=== PATIENT | male | born 1950 | race Two or more races ===

== ENCOUNTER 2024-07-10 14:04 | Inpatient (IN) | payer OTHER, MEDICARE, SELFPAY ==
[2024-07-10] VITALS (8 sets, daily range): BP systolic 86–109; BP diastolic 43–65; PULSE 85–100; RESP 15–25; TEMP 36.8–36.9; O2SAT 91–95; BMI 28.1
--- NOTE | 2024-07-10 14:47 | EKG_ITS ---
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: : [id number] Requested By: Sheba Davis ([facility]) Neelam Order Number: [id number] Reading MD: Sheba Davis ([facility]) Neelam Measurements Intervals [place] Rate: 102 P: 17 [place]: 144 QRS: -68 QRSD: 133 T: 39 QT: 393 QTc: 514 Interpretive Statements SINUS TACHYCARDIA RIGHT BUNDLE BRANCH BLOCK [120+ ms QRS DURATION, UPRIGHT V1, 40+ ms S IN I/aVL/V4/V5/V6] LEFT ANTERIOR FASCICULAR BLOCK [QRS AXIS <= -45, QR IN I, RS IN II] Compared to ECG 05/14/2024 15:38:37 Sinus rhythm no longer present Myocardial infarct finding no longer present /store/S0/[id number]/ecg/[id number].pdf
--- NOTE | 2024-07-10 14:48 | PD.EDRME ---
Rapid Medical Screening Exam RME Arrival date/time: 07/10/24 14:04 This is a 74-year-old male who presents to the emergency department with complaints of black stools last night history of liver cirrhosis. I have greeted and performed a focused initial assessment of this patient. Initial appropriate labs ordered at this time. A comprehensive ED assessment and evaluation of the patient and analysis of all test and completion of medical decision making process will be conducted by additional ED provider. Chief Complaint: GI Bleed Time Seen by Provider: 07/10/24 14:47 Vital signs: Vital Signs Temperature 98.4 F 07/10/24 14:41 Pulse Rate 100 07/10/24 14:41 Respiratory Rate 18 07/10/24 14:41 Blood Pressure 109/64 07/10/24 14:41 Pulse Oximetry (%) 94 L 07/10/24 14:41 Oxygen Delivery Method Room Air 07/10/24 14:41
[2024-07-10 15:37] LABS: Basophils % (Auto) 0 % (0-2.5); Eosinophils % (Auto) 0 % (0-10); Hematocrit 30.2 % (41.0-53.0); Hemoglobin 10.2 g/dL (13.5-16.0); Immature Granulocytes % (Auto) 1 % (0-0); Immature Granulocytes Auto 0.06 Thou/mm3 (0.00-0.00); Lymphocytes # (Auto) 1.3 Thou/mm3 (1.0-4.8); Lymphocytes % (Auto) 11 % (10-50); Mean Corpuscular HGB Conc 33.8 g/dl (31.0-37.0); Mean Corpuscular Volume 86 fL (80-100); Monocytes # (Auto) 1.3 Thou/mm3 (0.0-0.8); Monocytes % (Auto) 11 % (0-12); Neutrophils # (Auto) 9.3 Thou/mm3 (1.8-7.7); Neutrophils % (Auto) 78 % (37-80); Nucleated Red Blood Cell % 0 /100 WBC (0); RDW Standard Deviation 66.4 fL (35.1-43.9); Red Blood Count 3.52 Miln/mm3 (4.50-5.90)
[2024-07-10 15:40] LABS: Platelet Count 62 Thou/mm3 (140-440)
[2024-07-10 16:08] LABS: Alanine Aminotransferase 17 U/L (10-49); Albumin, Serum 2.7 gm/dL (3.4-4.8); Albumin/Globulin Ratio 0.6 (1.2-2.2); Alkaline Phosphatase 300 U/L (46-116); Anion Gap 9 (7-16); Aspartate Amino Transferase 33 U/L (0-34); BUN/Creatinine Ratio 17 Ratio (12-20); Bilirubin,Total 5.2 mg/dL (0.3-1.2); Blood Urea Nitrogen 15 mg/dL (9-23); Calcium 8.3 mg/dL (8.3-10.6); Calcium (Corrected) 9.3 mg/dL (8.5-10.1); Carbon Dioxide 22.4 mMol/L (20.0-31.0); Chloride 102 mMol/L (98-107); Creatinine (Component) 0.9 mg/dL (0.6-1.3); Estimated Creatinine Clearance 73.7 mL/min (>60); Globulin 4.6 gm/dL (2.3-3.5); Glucose 98 mg/dL (74-106); Lipase 34 U/L (12-53); Magnesium 1.7 mg/dL (1.6-2.6); Osmolality,Calculated 267 (275-295); Potassium 3.5 mMol/L (3.4-5.1); Sodium 133 mMol/L (136-145); Total Protein 7.3 gm/dL (5.7-8.2); eGFR > 60 See Note
[2024-07-10 16:10] LABS: Troponin I 0.089 ng/mL (0.0-0.045)
--- NOTE | 2024-07-10 16:26 | PD.EDGIBLD ---
ED GI Bleed RME/HPI General Chief complaint: GI Bleed Stated complaint: blood in stool, abdominal pain Time Seen by Provider: 07/10/24 14:47 Arrival date/time: 07/10/24 14:04 RME / HPI RME / HPI Narrative: 74-year-old male patient with significant history of liver cirrhosis, came in for evaluation regarding black stool. Patient had black stool for the last 3 days,. Patient also complained of abdominal pain few days ago but not today. Denies any vomiting. Denies any other complaints. No medication was taken prior to arrival. Patient is not taking any blood thinner. Related Data Home Medications ?Medication ?Instructions ?Recorded ?Confirmed alprazolam 0.5 mg tablet 0.5 mg PO BID PRN Anxiety 06/25/23 11/22/23 hydrocodone 10 mg-acetaminophen 1 tab PO Q6H PRN Pain 06/25/23 11/22/23 325 mg tablet tamsulosin 0.4 mg capsule 0.4 mg PO DAILY 06/25/23 03/19/24 Previous Rx's ?Medication ?Instructions ?Recorded escitalopram oxalate 10 mg tablet 10 mg PO QDAY 14 days #14 tabs 11/23/23 spironolactone 25 mg tablet 25 mg PO QDAY 14 days #14 tabs 11/23/23 furosemide 20 mg tablet (Lasix) 20 mg PO BID #60 tabs 12/24/23 ferrous sulfate 324 mg (65 mg 324 mg PO BID #60 tabs 02/01/24 iron) tablet,delayed release Allergies Allergy/AdvReac Type Severity Reaction Status Date / Time No Known Allergies Allergy Unknown Verified 07/10/24 14:08 Review of Systems Review of Systems Narrative Review of Systems: Review of system reviewed and within normal limits except mentioned in HPI ED Exam Narrative Physical exam: VITAL SIGNS: Reviewed. GENERAL APPEARANCE: Alert and interactive, follows commands, no acute distress, HEAD AND FACE: Non-traumatic. ENT: PERRL, pale conjunctiva eyelid no trauma, Mucous membrane moist. NECK: Supple, nontender, no nuchal rigidity. CHEST: No tenderness, no crepitus, no paradoxical movement, no retractions. LUNGS: Clear, well ventilated, symmetric, no rales, no wheezing, no ronchi, no stridor, good breath sounds bilaterally. HEART: Regular rate, regular rhythm, no murmur, no gallops. ABDOMEN: Soft, positive bowel sounds, nondistended, no guarding, nontender, no rebound, no masses, RECTAL: Deferred. GENITAL: Deferred. NEUROLOGICAL: Gross motor function intact sensory function intact, Appropriate for age. MUSCULOSKELETAL: low back nontender, full range of motion. EXTREMITIES: Nontender, full range of motion. SKIN: Color pale, dry, no rash, no lacerations, no abrasions, no contusions. LYMPHATICS: Deferred. Course Quality Measures none Orders Category Date Time Status COVID-19 Screening Questionnaire NOW Care 07/10/24 20:02 Active Decision to Admit X1 Care 07/10/24 20:01 Active EKG (ED ONLY) *Do not use* NOW Care 07/10/24 14:47 Completed Endoscopy Consents .On arrival Care 07/10/24 19:58 Active Insert IV NOW Care 07/10/24 14:47 Active Miscellaneous Nursing Order NOW Care 07/10/24 19:58 Active NPO STAT Care 07/10/24 14:47 Active Occult Blood,Stool (Nursing) NOW Care 07/10/24 14:47 Active Consult to Gastroenterology Stat Cons 07/10/24 19:18 Ordered Diet Clear Liquid Diet 07/10/24 Dinner Active EKG (ED Only) Stat Exams 07/10/24 14:47 Draft Ammonia Stat Lab 07/10/24 16:54 Completed CBC Stat Lab 07/10/24 15:10 Completed Comprehensive Metabolic Panel Stat Lab 07/10/24 15:10 Completed Lipase Stat Lab 07/10/24 15:10 Completed Magnesium Stat Lab 07/10/24 15:10 Completed Prothrombin Time with INR Stat Lab 07/10/24 15:10 Completed Troponin I Stat Lab 07/10/24 15:10 Completed Troponin I Stat Lab 07/10/24 16:54 Completed Urinalysis Stat Lab 07/10/24 19:32 Received Octreotide Acet Inj [SandoSTATIN Inj] Med 07/10/24 16:37 Discontinued 50 mcg IV X1 ONE Sodium Chloride 0.9% 1000 ml [Ns] 1,000 ml Med 07/10/24 16:37 Discontinued IV 999 mls/hr Sodium Chloride 0.9% 1000 ml [Ns] 1,000 ml Med 07/10/24 20:02 Active IV 999 mls/hr Sodium Chloride 0.9% [Ns] 100 ml Med 07/10/24 16:45 Active Octreotide Acet Inj [SandoSTATIN Inj] 1,000 mcg IV 50 mcg/hr Sodium Chloride 0.9% [Ns] 100 ml Med 07/11/24 12:44 Pending Octreotide Acet Inj [SandoSTATIN Inj] 1,000 mcg IV 50 mcg/hr Vital Signs Vital signs: Vital Signs Temperature 98.4 F 07/10/24 14:41 Pulse Rate 100 07/10/24 14:41 Respiratory Rate 18 07/10/24 14:41 Blood Pressure 109/64 07/10/24 14:41 Pulse Oximetry (%) 94 L 07/10/24 14:41 Oxygen Delivery Method Room Air 07/10/24 14:41 GI Bleed MDM Narrative MDM Narrative:: 74-year-old male patient with significant history of liver cirrhosis, came in for evaluation regarding black stool. Patient had black stool for the last 3 days,. Patient also complained of abdominal pain few days ago but not today. Denies any vomiting. Denies any other complaints. No medication was taken prior to arrival. Patient is not taking any blood thinner. I did a rectal exam, he tested positive for occult blood. However there is no black tarry stool on the examining finger. I consulted Dr. Hall, GI specialist on-call, told me to keep the patient n.p.o. postmidnight for endoscopy tomorrow Patient received IV fluids x 2 L for blood pressure below 90 systolic. . Patient received IV Protonix, IV Sandostatin and on drip Patient data External records reviewed:: None Clinical information provided by:: none Social determinants that could affect healthcare access:: none Patient has the following chronic illnesses:: Liver cirrhosis How is presenting disease/condition affected by chronic disease/condition?: exacerbated by Evaluation data The following diagnostics were reviewed and interpreted by me:: lab results and EKG tracing(s) Lab and/or radiology exams considered but not ordered:: None Interpretation Summary: Hemoglobin was noted to be 10.2 leukocytosis of 12 platelet of 66. Troponin was noted to be 0.086 initially I repeated went down to 0.080 EKG showed sinus tachycardia, ventricular rate of 102 bpm, no ST segment elevation depression noted. Medications / Prescriptions Medications or Prescriptions considered but not ordered:: None Medication administrations:: Medication Administration History Octreotide Acetate 1,000 mcg/ (Sodium Chloride) 102 mls @ 5.1 mls/hr IV .Q20H JERSON; Protocol Stop: 07/14/24 20:43 Octreotide Acetate 1,000 mcg/ (Sodium Chloride) 102 mls @ 5.1 mls/hr IV .Q20H ONE; Protocol Stop: 07/11/24 12:44 Last Admin: 07/10/24 18:27 Dose: 50 mcg/hr, 5.1 mls/hr Documented By: AVM Sodium Chloride (Ns) 1,000 mls @ 999 mls/hr IV .Q1H1M ONE Stop: 07/10/24 21:02 Discontinued Medications Sodium Chloride (Ns) 1,000 mls @ 999 mls/hr IV .Q1H1M ONE Stop: 07/10/24 17:37 Last Infusion: 07/10/24 18:40 Dose: Infused Documented By: Admin: 07/10/24 17:36 Dose: 999 mls/hr Documented By: AVM Octreotide Acetate (Octreotide Acet Inj 50 Mcg/Ml Vial) 50 mcg IV X1 ONE Stop: 07/10/24 16:38 Last Admin: 07/10/24 17:36 Dose: 50 mcg Documented By: AVM Sandostatin IV and drip, IV fluids, Protonix, Consultations Consultation(s) initiated? (list below): Yes Consultation #1 (Physician, Specialty, Details): Dr. Hall, GI specialist call, thank you Dr. Hall Diagnosis GI bleed differential diagnosis: esophageal varices, [place] syndrome and Upper gastrointestinal hemorrhage Most likely diagnosis given after review of the tests above:: Upper GI bleed, history of liver cirrhosis Admission Indicated Admission indicated?: indicated Admission Request Was there a request for admission?: Yes Admission Attestation Admission request attestation: Discussed case with [Thierry, resident MD] from Hospitalist service regarding admission. Discussed patients ED course, exam findings, labs, and radiology results. The Hospitalist [agrees] to accept the patient for admission. Disposition Plan Disposition Plan: Admit Discharge Plan Plan Patient Disposition: Admit Acute Care w/in Hospital Disposition Comment: Stable Prescriptions/Referrals Prescriptions/Med Rec: No Action spironolactone 25 mg tablet 25 mg PO QDAY 14 Days Qty: 14 0RF Patient Comments: TAKE 1 TABLET BY MOUTH EVERY DAY escitalopram oxalate 10 mg tablet 10 mg PO QDAY 14 Days Qty: 14 0RF furosemide [Lasix] 20 mg tablet 20 mg PO BID Qty: 60 0RF hydrocodone-acetaminophen 10-325 mg tablet 1 tab PO Q6H PRN (Reason: Pain) Patient Comments: TAKE 1 TABLET BY MOUTH EVERY 6 HOURS NEEDED FOR SEVERE PAIN alprazolam 0.5 mg tablet 0.5 mg PO BID PRN (Reason: Anxiety) Patient Comments: TAKE 1 TABLET BY MOUTH TWICE DAILY NEEDED FOR ANXIETY tamsulosin 0.4 mg capsule 0.4 mg PO DAILY Patient Comments: TAKE 1 CAPSULE BY MOUTH TWICE DAILY DIRECTED Rx Instructions: from previous pharmacy refill list ferrous sulfate 324 mg (65 mg iron) tablet,delayed release (DR/EC) 324 mg PO BID Qty: 60 0RF Referrals: Adalberto Schuster MD [Primary Care Provider] - In 1 week Problem List Clinical Impression: Upper gastrointestinal hemorrhage, Cirrhosis of liver Patient/Caregiver Discharge Instructions Print Language: Yoruba Stand Alone Forms: Janet Award Info., Patient Portal Info Letter
[2024-07-10 16:29] LABS: Slide Review Platelets confirmed
[2024-07-10 16:54] LABS: INR 1.7 (0.9-1.3); Prothrombin Time 18.4 Seconds (9.0-12.2)
[2024-07-10 17:23] LABS: Ammonia 30 uMol/L (11-32)
[2024-07-10] MEDS: OCTREOTIDE ACET INJ 50 mCg/ML VIAL IV (17:36)
[2024-07-10] MEDS: SODIUM CHLORIDE 0.9% 1000 ML 1,000 ML 999 ML IV ×2 (17:36→20:11)
[2024-07-10] MEDS: OCTREOTIDE ACET INJ 1,000 MCG in SODIUM CHLORIDE 0.9% 100 ML 5.1 MCG IV (18:27)
[2024-07-10 19:47] LABS: Collection Type, Urine Clean Catch
--- NOTE | 2024-07-10 19:58 | PD.IMCONS ---
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 with previous history of endoscopic evaluation last endoscopy 11/19/2023 which showed 1+ esophageal varices diffuse hemorrhagic gastritis cc:: cc: Review of Systems Review of Systems Systems Reviewed: All systems reviewed, normal except as documented Meds Home Medications and Allergies Home Medications ?Medication ?Instructions ?Recorded ?Confirmed ?Type alprazolam 0.5 mg tablet 0.5 mg PO BID PRN Anxiety 06/25/23 11/22/23 History hydrocodone 10 mg-acetaminophen 1 tab PO Q6H PRN Pain 06/25/23 11/22/23 History 325 mg tablet tamsulosin 0.4 mg capsule 0.4 mg PO DAILY 06/25/23 03/19/24 History Allergies Allergy/AdvReac Type Severity Reaction Status Date / Time No Known Allergies Allergy Unknown Verified 07/10/24 14:08 Exam Vital Signs Temp Pulse Resp BP Pulse Ox O2 Del Method 98.2 F 89 15 89/48 L 91 L Room Air 07/10/24 17:21 07/10/24 19:00 07/10/24 19:00 07/10/24 19:00 07/10/24 19:00 07/10/24 19:00 Constitutional Comments: Alert oriented Routine Respiratory Exam Comments: Normal to auscultation Routine Abdominal Exam Comments: Soft nontender Results Labs 07/11/24 04:57 07/11/24 04:57 Labs: Short CBC 07/10/24 Range/Units 15:10 WBC 12.0 H (3.8-10.6) Thou/mm3 Hgb 10.2 L (13.5-16.0) g/dL Hct 30.2 L (41.0-53.0) % Plt Count 62 L (140-440) Thou/mm3 BMP 07/10/24 15:10 Sodium 133 L Potassium 3.5 Chloride 102 Carbon Dioxide 22.4 BUN 15 Creatinine 0.9 Glucose 98 Calcium 8.3 Cardiac Enzymes 07/10/24 07/10/24 Range/Units 15:10 16:54 Troponin I 0.089 H* 0.080 H* (0.0-0.045) ng/mL Liver Function 07/10/24 Range/Units 15:10 Total Bilirubin 5.2 H (0.3-1.2) mg/dL AST 33 (0-34) U/L ALT 17 (10-49) U/L Alkaline Phosphatase 300 H (46-116) U/L Albumin 2.7 L (3.4-4.8) gm/dL Assessment and Plan Additional Assessment & Plan Additional Plan: # Melena in the setting of cirrhotic liver disease due to alcohol Differential diagnosis include esophageal variceal bleeding, hypertensive portal gastropathy leading to mucosal oozing of blood Peptic ulcer disease in the form of duodenal ulcer gastric ulcer Erosive esophagitis Plan Consent obtained for fiberoptic esophagogastroduodenoscopy with possible therapeutic intervention under intravenous moderate sedation IV Protonix Would recommend octreotide infusion at 50 mcg/h Will follow the patient Thank you very much for the opportunity to participate in the care of this patient
[2024-07-10 20:01] LABS: Bilirubin,Urine Negative (Negative); Blood,Urine Negative (Negative); Clarity,Urine Clear (Clear/Hazy); Color,Urine Yellow (Lt Yel-Yel); Glucose, Urine Negative (Negative); Ketones,Urine Negative (Negative); Leukocyte Esterase,Urine Negative (Negative); Nitrite,Urine Negative (Negative); Protein,Urine Negative (Neg - Trace); RBC,Urine 1 /hpf (0-3); Specific Gravity,Urine 1.008 (1.001-1.035); Squamous Epithelial Cell,Urine < 1 /hpf (0-5); Urobilinogen,Urine Negative mg/dL (0.0-1.0); WBC,Urine 2 /hpf (0-5)
--- NOTE | 2024-07-10 21:04 | XR_ITS ---
Examination: CT abdomen and pelvis without contrast. Coronal 3-D reconstructions. Sagittal 2-D reconstructions. Date and time of exam:July 10, 2024 at 2157 hrs. Comparison May 14, 2024 Indications: Abdominal pain beginning 24 hours ago CTDI: vol (mGy): 9.04 DLP: (mGycm): 592 Technique: Axial images of the abdomen have been obtained, 3 mm slice thickness Intravenous contrast material has not been administered. Low dose protocols were performed. One or more of the following dose reduction techniques were used; automated exposure control, adjustment of the mA and/or KV according to patient size, use of iterative reconstruction technique. Findings: Atelectasis and/or pneumonia right base Small right pleural effusion Liver nodular in contour, splenomegaly Mild ascites No pancreatic mass Contracted gallbladder 2 mm upper pole nonobstructing right renal calculus, no hydronephrosis Abdominal aortic intact no aneurysmal dilatation No bowel obstruction Diffuse wall thickening:, Colonic diverticulosis Rectal wall thickening Urinary bladder intact Again noted severe chronic compression T12 Impression: Atelectasis and/or pneumonia right base, suggest PA lateral chest follow-up Cirrhosis, mild splenomegaly Mild ascites 2 mm upper pole nonobstructing right renal calculus Diffuse wall thickening colon, Hepatic colopathy pattern
--- NOTE | 2024-07-10 21:26 | ESHP_ITS ---
Documentation for date of: 07/10/24 HPI History of Present Illness Chief complaint: Abdominal pain History of present illness: 74-year-old male with past medical history of liver cirrhosis secondary to alcohol use disorder (last drink was about 4 years ago) and esophageal varices without banding presenting to the ED on 07/10 with abdominal pain which started last night 07/09. Patient states that sometime around 9 PM he started developing burning abdominal pain which she described as a tight ball in the middle of his stomach. Of note, 3 to 4 days ago patient had dark tarry stools but denies any jovon blood. Patient states that these bowel movements have since resolved and he does not have any dark bowel movements presently. Patient also apparently went to his PCP, Dr. Schuster, this afternoon who recently prescribed him some medications (pantoprazole, sucralfate and tobramycin eyedrops) but he has yet to pick them up. Patient denies any concerning symptoms such as recent weight loss, fever/chills, chest pain/tightness, shortness of breath, palpitations, hematochezia, hematemesis, abdominal pain, nausea/vomiting/diarrhea, dysuria or hematuria. Of note, patient had an EGD with Dr. Hall sometime in the summer 2023 and esophageal varices were seen but were not banded since they were not actively bleeding. Patient follows up with Dr. Beebe; last visit was 2 months ago and he states that he was told that his heart is doing great. Medical history: As stated above Surgical history: Patient has stent placed with Dr. 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 Patient used to have heavy alcohol use disorder, last drink was 4 years ago, denies tobacco or illicit drug use. ROS: All 12 systems assessed and the patient denies unless otherwise stated in HPI. In the ED, patient presented mildly hypotensive 109/64, heart rate 100, respiratory 18, afebrile satting 94 on room air. Pertinent lab findings include WBC 12, hemoglobin 10.2 (MCV 86), platelet count 62, PT 18.4, INR 1.7, sodium 133, creatinine 0.9, BUN 15, glucose 98, magnesium 1.7, AST 33, ALT 17, alk phos 300, troponin 0.080, albumin 2.7, lipase 34. Urinalysis does not show any signs of urinary tract infection. EKG shows sinus tachycardia with right bundle branch block and left anterior fascicular block. CT abdomen pelvis ordered pending read. Patient will be admitted to the hospital team secondary to likely upper GI bleed; Dr. Hall (gastroenterology) has been consulted and will do an EGD for the patient. Exam Vital Signs Temp Pulse Resp BP Pulse Ox O2 Del Method 98.2 F 89 15 89/48 L 91 L Room Air 07/10/24 17:21 07/10/24 19:00 07/10/24 19:00 07/10/24 19:00 07/10/24 19:00 07/10/24 19:00 Narrative Exam Physical Exam: GENERAL: Awake, answering questions appropriately, appears stated age HEENT: NC/AT. Moist mucosa. PERRLA/EOMI. CARDIO: Heart RRR, no obvious murmurs, no JVD. PULM: No coughing or visible SOB. Lungs CTA B/L. GI: Abdomen soft, NT/ND, +BS. SKIN/MSK/EXT: No wounds/discoloration/rashes/edema/amputations noted. +Pedal pulses present B/L. 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 Results: Labs 07/10/24 22:17 07/10/24 15:10 Labs: Short CBC 07/10/24 Range/Units 15:10 WBC 12.0 H (3.8-10.6) Thou/mm3 Hgb 10.2 L (13.5-16.0) g/dL Hct 30.2 L (41.0-53.0) % Plt Count 62 L (140-440) Thou/mm3 BMP 07/10/24 15:10 Sodium 133 L Potassium 3.5 Chloride 102 Carbon Dioxide 22.4 BUN 15 Creatinine 0.9 Glucose 98 Calcium 8.3 Cardiac Enzymes 07/10/24 07/10/24 Range/Units 15:10 16:54 Troponin I 0.089 H* 0.080 H* (0.0-0.045) ng/mL Liver Function 07/10/24 Range/Units 15:10 Total Bilirubin 5.2 H (0.3-1.2) mg/dL AST 33 (0-34) U/L ALT 17 (10-49) U/L Alkaline Phosphatase 300 H (46-116) U/L Albumin 2.7 L (3.4-4.8) gm/dL Urine 07/10/24 Range/Units 19:32 Urine Color Yellow (Lt Yel-Yel) Urine Clarity Clear (Clear/Hazy) Urine pH 6.0 (5.0-7.0) Ur Specific [place] 1.008 (1.001-1.035) Urine Protein Negative (Neg - Trace) Urine Glucose (UA) Negative (Negative) Quality Measures Quality Measures none Advance care planning discussed with:: patient Medications Home Medications and Allergies Home Medications ?Medication ?Instructions ?Recorded ?Confirmed ?Type alprazolam 0.5 mg tablet 0.5 mg PO BID PRN Anxiety 06/25/23 11/22/23 History hydrocodone 10 mg-acetaminophen 1 tab PO Q6H PRN Pain 06/25/23 11/22/23 History 325 mg tablet tamsulosin 0.4 mg capsule 0.4 mg PO DAILY 06/25/23 03/19/24 History Allergies Allergy/AdvReac Type Severity Reaction Status Date / Time No Known Allergies Allergy Unknown Verified 07/10/24 14:08 Visit Medications Alprazolam (Alprazolam 0.25 Mg Tablet) 0.5 mg PO HS PRN PRN Reason: Anxiety Stop: 07/16/24 20:59 Buspirone HCl (Buspirone Hcl 5 Mg Tablet) 5 mg PO BID JERSON Stop: 08/10/24 08:59 Cyclobenzaprine HCl (Cyclobenzaprine 5 Mg Tablet) 10 mg PO QDAY PRN PRN Reason: Pain Stop: 08/10/24 08:59 Octreotide Acetate 1,000 mcg/ (Sodium Chloride) 102 mls @ 5.1 mls/hr IV .Q20H JERSON; Protocol Stop: 07/14/24 20:43 Octreotide Acetate 1,000 mcg/ (Sodium Chloride) 102 mls @ 5.1 mls/hr IV .Q20H ONE; Protocol Stop: 07/11/24 12:44 Last Admin: 07/10/24 18:27 Dose: 50 mcg/hr, 5.1 mls/hr Sodium Chloride (Ns) 500 mls @ 999 mls/hr IV .Q31M ONE Stop: 07/10/24 21:34 Magnesium Sulfate (Magnesium Sulfate Ivpb) 4 gm in 50 mls @ 12.5 mls/hr IV X1 ONE Stop: 07/11/24 01:06 Midodrine (Midodrine 5 Mg Tablet) 10 mg PO BID [facility] Stop: 08/09/24 21:14 Pantoprazole Sodium (Pantoprazole Inj 40 Mg Vial) 40 mg IVP QDAY [facility] Stop: 08/10/24 08:59 Tramadol HCl (Tramadol Hcl 50 Mg Tablet) 50 mg PO HS PRN PRN Reason: Pain 4-7 Stop: 07/16/24 20:59 Discontinued Medications Cyclobenzaprine HCl (Cyclobenzaprine 5 Mg Tablet) 10 mg PO QDAY [facility] Stop: 08/10/24 08:59 Sodium Chloride (Ns) 1,000 mls @ 999 mls/hr IV .Q1H1M ONE Stop: 07/10/24 17:37 Last Infusion: 07/10/24 18:40 Dose: Infused Sodium Chloride (Ns) 1,000 mls @ 999 mls/hr IV .Q1H1M ONE Stop: 07/10/24 21:02 Last Admin: 07/10/24 20:11 Dose: 999 mls/hr Octreotide Acetate (Octreotide Acet Inj 50 Mcg/Ml Vial) 50 mcg IV X1 ONE Stop: 07/10/24 16:38 Last Admin: 07/10/24 17:36 Dose: 50 mcg Potassium Chloride (Potassium Chloride 10% 20 Meq/15 Ml Udc) 20 meq PO X1 ONE Stop: 07/10/24 21:07 Assessment & Plan Plan 74-year-old male with past medical history of liver cirrhosis secondary to alcohol use disorder (last drink was about 4 years ago) and esophageal varices without banding presenting with abdominal pain which started last night 07/09 will be admitted to the hospital team secondary to likely upper GI bleed; Dr. Hall (gastroenterology) has been consulted and will do an EGD for the patient. #Upper GI bleed #Hypotension #Leukocytosis Patient presenting with abdominal pain yesterday (07/09) which has since subsided Of note, patient had black tarry stools about 3 to 4 days ago which have also subsided On exam, patient did not have any active signs of bleeding; no hematuria, hematemesis, hematochezia or melena FOBT was positive but there is no inpatient indication for it Patient had MAP in the low 50s; 2.5 L of IV normal saline were given Patient's hemoglobin went from 10.2 ==> 8.8 secondary to likely hemodilution with 2.5 L of IV fluids CT Abd/Pelvis shows Atelectasis and/or pneumonia right base, suggest PA lateral chest follow-up Plan: Dr. Hall, gastroenterology, consulted appreciate recommendations Patient will be n.p.o. except for medications after 8 AM 07/15 EGD IV octreotide and Protonix are on Monitor for any new active signs of bleeding Midodrine 10 mg p.o. twice daily Holding antihypertensives at this time (Lasix and spironolactone patient apparently has not taken them) PA Lateral CXR ordered for 8am 07/11 #Liver cirrhosis secondary to alcohol use disorder #Bilirubinemia #Hypoalbuminemia #Normocytic anemia #Thrombocytopenia Child-Hernandez 10?point Child Class C Life Expectancy : 1-3 years. Abdominal surgery jacob-operative mortality: 82% 22?points MELD Score (2016)* 19.6% Estimated 3-Month Mortality Patient has heavy alcohol use disorder; last drink was about 4 years ago Patient does not follow-up with GI outpatient; is not on any transplant list Per report, patient has EGD in the past which showed esophageal varices; however, no banding was done as they were not bleeding Patient in the past used to be on spironolactone and Lasix but apparently he does not take those medications anymore On exam, patient does not have any abdominal pain, denies nausea/vomiting/diarrhea CT Shows: Diffuse wall thickening colon, Hepatic colopathy pattern and Cirrhosis, mild splenomegaly with mild ascites Plan: Will replete albumin; 25gm x1 Can consider doing 21-day course of methylprednisolone Followed outpatient #CONNOR #Prerenal azotemia from GI bleed vs. dehydration Patient presenting with Cr above baseline (0.6); currently 0.9 Has chronic back pain, no CVA tenderness of exam Was given 2.5L of IV NS as stated above Plan: Follow up with morning labs #Coronary artery disease s/p stent placement #Elevated troponin Patient apparently had stent placed with Dr. Beebe sometime in 2008 Last follow-up was 2 months ago and he states imaging of his heart showed that everything was normal Currently denies having any chest pain/tightness, palpitations, shortness of breath or any other concerning cardiac symptoms Presenting with troponin 0.089 ==> 0.080 Plan: Will not trend troponin Monitor for any changes in chest pain #Generalized anxiety disorder Patient takes BuSpar 5 mg twice daily and Xanax 0.5 mg at bedtime for anxiety by PCP Plan: Restarted BuSpar Will restart Xanax as needed #Chronic back pain Patient has chronic back pain On as needed cyclobenzaprine and tramadol Chronic T12 severe compression on CT Plan: Restart as needed home medications #Conjunctivitis Patient has recent symptoms of conjunctivitis Seen by PCP and prescribed tobramycin eyedrops, never picked it up Plan: Restarted medications in the hospital #2 mm upper pole nonobstructing right renal calculus History of nephrolithiasis No CVA tenderness Plan: Follow-up outpatient Hospital Management: Lines: PIV Diet: Clear liquid, n.p.o. except for medications after 8 AM 07/11 Bowel: Not needed at this time GI prophylaxis: Protonix DVT prophylaxis: SCD Dispo: Dr. Hall will do an EGD 07/11 Code: Full Patient seen and assessed with attending Dr. Guadarrama and senior resident Dr. Min Welsh, PGY-1 Attending Provider Attestation/Addendum Face to face evaluation was performed by me. I have personally seen and examined the patient. I discussed the assessment and plan with the entire medicine team. I reviewed available medical records, imaging studies, laboratory results. I agree with the above subjective data, objective findings, assessment and plan except as corrected by me or noted below Hypotension, suspect hypovoelmia Liver Cirrhosis Melena Possible upper GI bleed Chronic anemia of cirrhosis 2 mm on obstructing renal calculi R side Chronic lowe back pain -Octreotide gtt, iv ppi BID,d, IV boluses with NS , midodrine 10 mg BID GI consult CT ab/pelv w/o Resume most of home medications monitor hb closely NPO after midnight
[2024-07-10] MEDS: Magnesium Sulfate 4 GM Ivpb 4 GM/50 ML BAG IV (21:43)
[2024-07-10] MEDS: SODIUM CHLORIDE 0.9% 500 ML 500 ML 999 ML IV (21:43)
[2024-07-10] MEDS: POTASSIUM CHLORIDE 10% 20 MEQ/15 ML UDC PO (21:43)
[2024-07-10] MEDS: MIDODRINE 5 MG TABLET 10 MG PO (21:44)
[2024-07-10 22:35] LABS: Hematocrit 25.6 % (41.0-53.0)
[2024-07-10 22:41] LABS: Hemoglobin 8.8 g/dL (13.5-16.0)
[2024-07-10] MEDS: ALPRazoLAM 0.25 MG TABLET 0.5 MG PO (23:23)
[2024-07-10] MEDS: ALBUMIN HUMAN 25% IVPB 25 GM/100 ML BTL IV (23:37)
[2024-07-11] VITALS (16 sets, daily range): BP systolic 91–129; BP diastolic 61–77; PULSE 77–100; RESP 12–23; TEMP 36.6–39.1; O2SAT 89–98; BMI 27.9
[2024-07-11 05:54] LABS: Basophils % (Auto) 0 % (0-2.5); Eosinophils % (Auto) 0 % (0-10); Hematocrit 25.2 % (41.0-53.0); Immature Granulocytes % (Auto) 0 % (0-0); Immature Granulocytes Auto 0.02 Thou/mm3 (0.00-0.00); Lymphocytes # (Auto) 0.7 Thou/mm3 (1.0-4.8); Lymphocytes % (Auto) 13 % (10-50); Mean Corpuscular HGB Conc 33.3 g/dl (31.0-37.0); Mean Corpuscular Hemoglobin 28.8 pg (25.0-35.0); Mean Corpuscular Volume 86 fL (80-100); Monocytes # (Auto) 0.7 Thou/mm3 (0.0-0.8); Monocytes % (Auto) 12 % (0-12); Neutrophils % (Auto) 73 % (37-80); Nucleated Red Blood Cell % 0 /100 WBC (0); RDW Standard Deviation 67.6 fL (35.1-43.9); Red Blood Count 2.92 Miln/mm3 (4.50-5.90); White Blood Count 5.5 Thou/mm3 (3.8-10.6)
[2024-07-11 05:55] LABS: Hemoglobin 8.4 g/dL (13.5-16.0); Platelet Count 43 Thou/mm3 (140-440)
[2024-07-11 05:56] LABS: Slide Review Platelets confirmed
[2024-07-11 06:04] LABS: INR 1.9 (0.9-1.3); Prothrombin Time 19.4 Seconds (9.0-12.2)
[2024-07-11 06:25] LABS: Alanine Aminotransferase 13 U/L (10-49); Albumin, Serum 2.3 gm/dL (3.4-4.8); Albumin/Globulin Ratio 0.6 (1.2-2.2); Alkaline Phosphatase 230 U/L (46-116); Anion Gap 6 (7-16); Aspartate Amino Transferase 26 U/L (0-34); BUN/Creatinine Ratio 18 Ratio (12-20); Bilirubin,Total 4.3 mg/dL (0.3-1.2); Blood Urea Nitrogen 11 mg/dL (9-23); Calcium 7.6 mg/dL (8.3-10.6); Carbon Dioxide 25.2 mMol/L (20.0-31.0); Cardiac Risk Estimate 5.3 RATIO (4.0-6.7); Chloride 105 mMol/L (98-107); Cholesterol 79 mg/dL (132-200); Creatinine (Component) 0.6 mg/dL (0.6-1.3); Estimated Creatinine Clearance 110.2 mL/min (>60); Globulin 3.7 gm/dL (2.3-3.5); Glucose 103 mg/dL (74-106); HDL Cholesterol 15 mg/dL (40-60); LDL Cholesterol,Calculated 51 mg/dL (0-130); Magnesium 1.9 mg/dL (1.6-2.6); Osmolality,Calculated 271 (275-295); Phosphorous 1.6 mg/dL (2.4-5.1); Potassium 3.7 mMol/L (3.4-5.1); Sodium 136 mMol/L (136-145); Thyroid Stimulating Hormone 0.22 uIU/mL (0.55-4.78); Triglycerides 63 mg/dL (30-150); eGFR > 60 See Note
--- NOTE | 2024-07-11 08:19 | XR_ITS ---
Examination: AP chest single view Technique one AP upright portable chest single view Exam date and time: July 11, 2024 0933 hours Comparison May 14, 2024 INDICATIONS: Shortness of breath today. FINDINGS: Increased markings in the perihilar regions bilaterally Prominent elevation right hemidiaphragm Mild prominence of ventricle Ectatic thoracic aorta IMPRESSION: Suspicious for early bilateral perihilar pneumonia
[2024-07-11] MEDS: MIDODRINE 5 MG TABLET 10 MG PO ×2 (09:01→20:32)
[2024-07-11] MEDS: ACETAMINOPHEN 500 MG TABLET PO (09:01)
[2024-07-11] MEDS: BusPIRone HCL 5 MG TABLET PO ×2 (09:01→20:32)
[2024-07-11] MEDS: VIT B12/Vit C/FA (Nephrovite) TABLET 1 TAB PO (09:01)
[2024-07-11] MEDS: PANTOPRAZOLE INJ 40 MG VIAL IVP ×2 (09:02→20:32)
--- NOTE | 2024-07-11 09:37 | PC.SS ---
YOUTH CAREER SPECIALIST conducted bedside contact with the patient conduct initial assessment and to discuss discharge planning. Patient confirmed demographic information. Patient resides alone at home. Patient utilizes a walker to assist with ambulation. Patient does not require the use of home oxygen. Patient requires assistance with completion of ADL?s. Patient is aligned with [facility]. [facility] staff is Kellee Jeff. Patient idenfited sister, Maggy Romero ; as medical surrogate decision maker. Patient?s PCP is Dr. Schuster. Patient?s filling hand is Dr. Ceballos. Patient utilizes [facility] for medication services. Patient is not diabetic, does not participate with dialysis. Plan is for the patient to return home at the time of discharge. If home health is recommended, no preferred provider identified. Family will provide transportation on behalf of the patient. No DME discharge needs identified by the patient. No further intervention required at this time, aids social worker will be available to address any further concerns. Next of Kin: Maggy Romero D/C Plan: Home
[2024-07-11 09:48] LABS: Free T4 (Free Thyroxine) 0.89 ng/dL (0.89-1.76)
[2024-07-11 10:11] LABS: Total Iron Binding Capacity 223 mcg/dL (250-425)
--- NOTE | 2024-07-11 10:16 | PC.SS ---
Update: Patient to receive chest X-Ray today.
[2024-07-11 10:20] LABS: Iron 153 mcg/dL (65-175); Percent Iron Saturation 68 % (20-55); Unsaturated Iron Binding 70 (225-295)
[2024-07-11] MEDS: CYANOCOBALAMIN INJ 1,000 mCg/ML VIAL 1000 MCG IM (10:28)
[2024-07-11] MEDS: POTASSIUM PHOS 22.5 MMOL in SODIUM CHLORIDE 0.9% 500 ML 500 ML 82.778 MMOL IV (10:28)
--- NOTE | 2024-07-11 11:17 | ESPR_ITS ---
<Statement entered by Chaim Murillo MD - 07/11/24 17:02> Patient was seen and examined by me personally. I agree with most of the assessment and plan as discussed with the events intern physician, and my attending, Dr. Ferrara. 74-year-old male with cirrhosis admitted for upper GI bleed, possibly secondary to esophageal varices. Started on Protonix and octreotide, pending EGD. Patient did develop a fever, and due to concern for SBP was started on 2 g Rocephin. Hemoglobin stable. Will reevaluate and consider albumin challenge. Chaim Murillo MD, PGY-3 Documentation for date of: 07/11/24 Subjective Subjective Interval history: Patient was seen and examined bedside. Denies any other complaints. This morning patient had a febrile episode of 101.6 ?F for which patient was given a dose of Tylenol and ceftriaxone is added. Patient was on n.p.o. and scheduled to get EGD by Dr. Hall later in the day Exam Vital Signs Temp Pulse Resp BP Pulse Ox O2 Del Method 99.3 F 97 22 H 110/61 90 L Room Air 07/11/24 10:29 07/11/24 09:01 07/11/24 08:00 07/11/24 09:01 07/11/24 08:00 07/11/24 08:00 Narrative Exam General: Awake. Bilateral redness around the eyes noted with yellowish discharge from the eyes, likely bacterial conjunctivitis. HEENT: Normocephalic, atraumatic, mucous membranes moist. Heart: Regular rate and rhythm, no murmurs. Lungs: Bilateral diffuse wheeze heard. Abdomen: Soft, nondistended, nontender, positive bowel sounds. ?No guarding or rebound tenderness. Neurologic: Alert and oriented x3, no gross neurological deficit, and patient able to move all 4 extremities. Extremities: No edema. Skin: No rash or ecchymoses. Objective Labs 07/12/24 04:45 07/12/24 04:45 Labs: Laboratory Results - last 24 hr 07/10/24 07/10/24 07/10/24 15:10 16:54 19:32 WBC 12.0 H RBC 3.52 L Hgb 10.2 L Hct 30.2 L MCV 86 MCH 29.0 MCHC 33.8 RDW Std Deviation 66.4 H Plt Count 62 L Neut % (Auto) 78 Lymph % (Auto) 11 Ransom % (Auto) 11 Eos % (Auto) 0 Baso % (Auto) 0 Neut # (Auto) 9.3 H Lymph # (Auto) 1.3 Ransom # (Auto) 1.3 H Eos # (Auto) 0.0 Baso # (Auto) 0.0 Immature Gran # (Auto) 0.06 H Absolute Nucleated RBC 0.00 Immature Gran % 1 H Nucleated RBC % 0 PT 18.4 H INR 1.7 H Sodium 133 L Potassium 3.5 Chloride 102 Carbon Dioxide 22.4 Anion Gap 9 BUN 15 Creatinine 0.9 Estim Creat Clear Calc 73.7 eGFR > 60 BUN/Creatinine Ratio 17 Glucose 98 Calculated Osmolality 267 L Calcium 8.3 Corrected Calcium 9.3 Phosphorus Magnesium 1.7 Iron TIBC Iron Saturation Unsat Iron Binding Total Bilirubin 5.2 H AST 33 ALT 17 Alkaline Phosphatase 300 H Ammonia 30 Troponin I 0.089 H* 0.080 H* Total Protein 7.3 Albumin 2.7 L Globulin 4.6 H Albumin/Globulin Ratio 0.6 L Triglycerides Cholesterol LDL Cholesterol, Calc HDL Cholesterol Cholesterol/HDL Ratio Lipase 34 TSH Free T4 Ur Collection Type Clean Catch Urine Color Yellow Urine Clarity Clear Urine pH 6.0 Ur Specific [place] 1.008 Urine Protein Negative Urine Glucose (UA) Negative Urine Ketones Negative Urine Blood Negative Urine Nitrite Negative Urine Bilirubin Negative Urine Urobilinogen (Auto) Negative Ur Leukocyte Esterase Negative Urine RBC 1 Urine WBC 2 Ur Squamous Epith Cells < 1 Urine Bacteria None Misc Test Result Platelets confirmed 07/10/24 07/11/24 22:17 04:57 WBC 5.5 D RBC 2.92 L Hgb 8.8 L 8.4 L Hct 25.6 L 25.2 L MCV 86 MCH 28.8 MCHC 33.3 RDW Std Deviation 67.6 H Plt Count 43 L D Neut % (Auto) 73 Lymph % (Auto) 13 Ransom % (Auto) 12 Eos % (Auto) 0 Baso % (Auto) 0 Neut # (Auto) 4.0 Lymph # (Auto) 0.7 L Ransom # (Auto) 0.7 Eos # (Auto) 0.0 Baso # (Auto) 0.0 Immature Gran # (Auto) 0.02 H Absolute Nucleated RBC 0.00 Immature Gran % 0 Nucleated RBC % 0 PT 19.4 H INR 1.9 H Sodium 136 Potassium 3.7 Chloride 105 Carbon Dioxide 25.2 Anion Gap 6 L BUN 11 Creatinine 0.6 Estim Creat Clear Calc 110.2 eGFR > 60 BUN/Creatinine Ratio 18 Glucose 103 Calculated Osmolality 271 L Calcium 7.6 L Corrected Calcium 9.0 Phosphorus 1.6 L Magnesium 1.9 Iron 153 TIBC 223 L Iron Saturation 68 H Unsat Iron Binding 70 L Total Bilirubin 4.3 H D AST 26 ALT 13 Alkaline Phosphatase 230 H D Ammonia Troponin I Total Protein 6.0 Albumin 2.3 L Globulin 3.7 H Albumin/Globulin Ratio 0.6 L Triglycerides 63 Cholesterol 79 L LDL Cholesterol, Calc 51 HDL Cholesterol 15 L Cholesterol/HDL Ratio 5.3 Lipase TSH 0.22 L Free T4 0.89 Ur Collection Type Urine Color Urine Clarity Urine pH Ur Specific [place] Urine Protein Urine Glucose (UA) Urine Ketones Urine Blood Urine Nitrite Urine Bilirubin Urine Urobilinogen (Auto) Ur Leukocyte Esterase Urine RBC Urine WBC Ur Squamous Epith Cells Urine Bacteria Misc Test Result Platelets confirmed Quality Measures Quality Measures none Advance care planning discussed with:: patient Assessment & Plan Assessment Current Active Medications: Generic Name Dose Route Start Last Admin Trade Name Freq PRN Reason Stop Dose Admin Acetaminophen 500 mg 07/11/24 08:49 07/11/24 09:01 Acetaminophen 500 Mg Tablet PO 08/10/24 08:48 500 mg Q4HR PRN Administration temp >100.3 Alprazolam 0.5 mg 07/10/24 21:24 07/10/24 23:23 Alprazolam 0.25 Mg Tablet PO 07/16/24 20:59 0.5 mg HS PRN Administration Anxiety Buspirone HCl 5 mg 07/11/24 09:00 07/11/24 09:01 Buspirone Hcl 5 Mg Tablet PO 08/10/24 08:59 5 mg BID JERSON Administration Cyclobenzaprine HCl 10 mg 07/11/24 10:10 Cyclobenzaprine 5 Mg Tablet PO 08/10/24 08:59 QDAY PRN PAIN (MUSCLE) Octreotide Acetate 1,000 mcg/ 102 mls @ 5.1 mls/hr 07/11/24 12:44 Sodium Chloride IV 07/14/24 20:43 .Q20H JERSON Protocol 50 MCG/HR Octreotide Acetate 1,000 mcg/ 102 mls @ 5.1 mls/hr 07/10/24 16:45 07/10/24 18:27 Sodium Chloride IV 07/11/24 12:44 50 mcg/hr .Q20H ONE 5.1 mls/hr Administration Protocol 50 MCG/HR Potassium Phosphate 22.5 mmol/ 507.5 mls @ 82.778 mls/hr 07/11/24 09:41 07/11/24 10:28 Sodium Chloride IV 07/11/24 15:01 82.778 mls/hr X1 ONE Administration Ceftriaxone Sodium 2 gm/ 50 mls @ 100 mls/hr 07/11/24 11:00 Sodium Chloride IV 07/18/24 10:59 QDAY JERSON Midodrine 10 mg 07/10/24 21:15 07/11/24 09:01 Midodrine 5 Mg Tablet PO 08/09/24 21:14 10 mg BID JERSON Administration Pantoprazole Sodium 40 mg 07/11/24 09:00 07/11/24 09:02 Pantoprazole Inj 40 Mg Vial IVP 08/10/24 08:59 40 mg BID JERSON Administration Tobramycin/Dexamethasone 0 gm 07/11/24 06:00 07/11/24 05:13 Tobramycin/Dexameth Op Oint 3.5 Gm Tube BOTH EYES 08/10/24 05:59 Not Given QID JERSON Tramadol HCl 50 mg 07/10/24 21:05 Tramadol Hcl 50 Mg Tablet PO 07/16/24 20:59 HS PRN Pain 4-7 Vitamin B Complex/Vit C/Folic Acid 1 tab 07/11/24 09:00 07/11/24 09:01 Vit B12/Vit C/Fa (Nephrovite) Tablet PO 08/10/24 08:59 1 tab QDAY JERSON Administration Plan 74-year-old male with past medical history of liver cirrhosis secondary to alcohol use disorder (last drink was about 4 years ago) and esophageal varices without banding presenting with abdominal pain which started last night 07/09 will be admitted to the hospital team secondary to likely upper GI bleed; Dr. Hall (gastroenterology) has been consulted and will do an EGD for the patient. #Upper GI bleed #Hypotension, resolved #Leukocytosis, resolved Patient presenting with abdominal pain yesterday (07/09) which has since subsided Of note, patient had black tarry stools about 3 to 4 days ago which have also subsided On exam, patient did not have any active signs of bleeding; no hematuria, hematemesis, hematochezia or melena FOBT was positive but there is no inpatient indication for it Patient had MAP in the low 50s; 2.5 L of IV normal saline were given Patient's hemoglobin went from 10.2 ==> 8.8 secondary to likely hemodilution with 2.5 L of IV fluids CT Abd/Pelvis shows Atelectasis and/or pneumonia right base, suggest PA lateral chest follow-up Plan: Dr. Hall, gastroenterology, consulted, EGD later in the day Patient will be n.p.o. except for medications after 8 AM 07/15 EGD IV octreotide and Protonix are on Monitor for any new active signs of bleeding Midodrine 10 mg p.o. twice daily Holding antihypertensives at this time (Lasix and spironolactone patient apparently has not taken them) #Liver cirrhosis secondary to alcohol use disorder #Bilirubinemia #Hypoalbuminemia #Normocytic anemia #Thrombocytopenia Child-Hernandez 10?point Child Class C Life Expectancy : 1-3 years. Abdominal surgery jacob-operative mortality: 82% 22?points MELD Score (2016)* 19.6% Estimated 3-Month Mortality Patient has heavy alcohol use disorder; last drink was about 4 years ago Patient does not follow-up with GI outpatient; is not on any transplant list Per report, patient has EGD in the past which showed esophageal varices; however, no banding was done as they were not bleeding Patient in the past used to be on spironolactone and Lasix but apparently he does not take those medications anymore On exam, patient does not have any abdominal pain, denies nausea/vomiting/diarrhea CT Shows: Diffuse wall thickening colon, Hepatic colopathy pattern and Cirrhosis, mild splenomegaly with mild ascites Plan: Will replete albumin; 25gm x1 Followed outpatient #CONNOR, resolved #Prerenal azotemia from GI bleed vs. dehydration Patient presenting with Cr 0.9 and return to 0.6 as of 07/11/2024 Has chronic back pain, no CVA tenderness of exam Was given 2.5L of IV NS as stated above Plan: Will continue to monitor renal functions #Coronary artery disease s/p stent placement #Elevated troponin, type II Patient apparently had stent placed with Dr. Beebe sometime in 2008 Last follow-up was 2 months ago and he states imaging of his heart showed that everything was normal Currently denies having any chest pain/tightness, palpitations, shortness of breath or any other concerning cardiac symptoms Presenting with troponin 0.089 ==> 0.080 #Generalized anxiety disorder Patient takes BuSpar 5 mg twice daily and Xanax 0.5 mg at bedtime for anxiety by PCP Plan: Restarted BuSpar #Chronic back pain Patient has chronic back pain On as needed cyclobenzaprine and tramadol Chronic T12 severe compression on CT #Conjunctivitis Patient has recent symptoms of conjunctivitis Seen by PCP and prescribed tobramycin eyedrops, never picked it up Plan: Restarted tobramycin eyedrops #2 mm upper pole nonobstructing right renal calculus History of nephrolithiasis No CVA tenderness Plan: Follow-up outpatient Hospital Management: Lines: PIV Diet: Clear liquid, n.p.o. except for medications after 8 AM 07/11 Bowel: Not needed at this time GI prophylaxis: Protonix DVT prophylaxis: SCD Dispo: Dr. Hall will do an EGD 07/11 Code: Full Patient plan of care was discussed with the attending physician, Dr. Ferrara and senior resident Dr. Lidia Hatch, PGY1 Attending Provider Attestation/Addendum I reviewed labs, imaging, EKG, home medications and prior available records. Face to face evaluation was performed by me. I have personally examined the patient and discussed assessment and plan with the IM team. I reviewed the resident note and agree with the plan with exceptions as below. SBP Upper GI bleed Alcoholic liver cirrhosis Acute anemia Thrombocytopenia Elevated INR Patient developed fevers. Concern for SBP. Started IV ceftriaxone. N.p.o. for EGD IV Protonix and IV octreotide Continue alcohol abstinence Monitor platelet level. Monitor CBC. Monitor for bleeding
[2024-07-11] MEDS: cefTRIAXone 2 GM in SODIUM CHLORIDE 0.9% (P) 50 ML IV (12:36)
[2024-07-11] MEDS: TOBRAMYCIN/DEXAMETH OP OINT 3.5 GM TUBE BOTH EYES ×2 (13:00→20:33)
--- NOTE | 2024-07-11 14:39 | PC.SS ---
Rounding Note: EGD pending. Patient is NPO.
[2024-07-11] MEDS: OCTREOTIDE ACET INJ 1,000 MCG in SODIUM CHLORIDE 0.9% 100 ML 5.1 MCG IV (15:21)
--- NOTE | 2024-07-11 17:27 | SUR.OPER ---
PATIENT INTO OR ROOM 4 AT 1710, PATIENT COMPLAINS OF BEING VERY COLD. PATIENT TEMPERATURE NOTED TO BE 102.4 TEMPORAL. MADE AWARE AND IS OKAY TO PROCEED WITH PROCEDURE.
--- NOTE | 2024-07-11 17:42 | SUR.PHASEI ---
1742: Pt. AAOx4, vitals stable, breathing unlabored, no complaint of pain or nausea, no dressing in place, no active bleed noted, report received from Erica LEAL.
--- NOTE | 2024-07-11 18:16 | SUR.PHASEI ---
1816: Pt. AAOx4, vitals stable, breathing unlabored, no complaint of pain or nausea, no dressing in place, no active bleed noted, pt. tolerated bites of jello well, gave report to Salma LEAL prior to transfer to room 275A.
[2024-07-12] VITALS (8 sets, daily range): BP systolic 104–127; BP diastolic 53–72; PULSE 78–93; RESP 14–22; TEMP 36.6–37.6; O2SAT 93–97; BMI 13.0
[2024-07-12] MEDS: traMADol HCL 50 MG TABLET PO (00:05)
[2024-07-12] MEDS: ALPRazoLAM 0.25 MG TABLET 0.5 MG PO (00:05)
[2024-07-12] MEDS: TOBRAMYCIN/DEXAMETH OP OINT 3.5 GM TUBE BOTH EYES ×2 (05:18→12:29)
[2024-07-12 05:30] LABS: Basophils % (Auto) 0 % (0-2.5); Eosinophils # (Auto) 0.1 Thou/mm3 (0.0-0.5); Eosinophils % (Auto) 1 % (0-10); Hematocrit 25.8 % (41.0-53.0); Immature Granulocytes % (Auto) 0 % (0-0); Immature Granulocytes Auto 0.03 Thou/mm3 (0.00-0.00); Lymphocytes # (Auto) 0.8 Thou/mm3 (1.0-4.8); Lymphocytes % (Auto) 12 % (10-50); Mean Corpuscular HGB Conc 33.7 g/dl (31.0-37.0); Mean Corpuscular Hemoglobin 29.3 pg (25.0-35.0); Mean Corpuscular Volume 87 fL (80-100); Monocytes # (Auto) 0.7 Thou/mm3 (0.0-0.8); Monocytes % (Auto) 11 % (0-12); Neutrophils # (Auto) 5.1 Thou/mm3 (1.8-7.7); Neutrophils % (Auto) 76 % (37-80); Nucleated Red Blood Cell # 0.02 Thou/mm3 (0.00-0.00); Nucleated Red Blood Cell % 0 /100 WBC (0); RDW Standard Deviation 65.3 fL (35.1-43.9); Red Blood Count 2.97 Miln/mm3 (4.50-5.90); White Blood Count 6.7 Thou/mm3 (3.8-10.6)
[2024-07-12 05:48] LABS: Hemoglobin 8.7 g/dL (13.5-16.0); Platelet Count 49 Thou/mm3 (140-440); Slide Review Platelets confirmed
[2024-07-12 06:08] LABS: Alanine Aminotransferase 12 U/L (10-49); Albumin, Serum 2.2 gm/dL (3.4-4.8); Albumin/Globulin Ratio 0.6 (1.2-2.2); Alkaline Phosphatase 203 U/L (46-116); Anion Gap 4 (7-16); Aspartate Amino Transferase 20 U/L (0-34); BUN/Creatinine Ratio 18 Ratio (12-20); Bilirubin,Total 4.2 mg/dL (0.3-1.2); Blood Urea Nitrogen 11 mg/dL (9-23); Calcium 7.5 mg/dL (8.3-10.6); Calcium (Corrected) 8.9 mg/dL (8.5-10.1); Carbon Dioxide 27.6 mMol/L (20.0-31.0); Chloride 105 mMol/L (98-107); Creatinine (Component) 0.6 mg/dL (0.6-1.3); Estimated Creatinine Clearance 113.8 mL/min (>60); Globulin 3.6 gm/dL (2.3-3.5); Glucose 78 mg/dL (74-106); Osmolality,Calculated 272 (275-295); Potassium 3.6 mMol/L (3.4-5.1); Sodium 137 mMol/L (136-145); Total Protein 5.8 gm/dL (5.7-8.2); eGFR > 60 See Note
[2024-07-12] MEDS: PANTOPRAZOLE INJ 40 MG VIAL IVP (08:56)
[2024-07-12] MEDS: MIDODRINE 5 MG TABLET 10 MG PO (08:56)
[2024-07-12] MEDS: BusPIRone HCL 5 MG TABLET PO (08:57)
[2024-07-12] MEDS: cefTRIAXone 2 GM in SODIUM CHLORIDE 0.9% (P) 50 ML IV (08:57)
--- NOTE | 2024-07-12 10:51 | PC.NURSE ---
DR ANGLIN CALLED AND INFORMED OF O2 SAT ON RA AND ON 2L VIA NC. REQUEST FOR PT EVAL GRANTED TO CHECK GAIT AND O2 SAT WITH INCREASED ACTIVITY. ALSO ASKED TO HAVE DIET ADVANCED FORM FULL LIQUID.
--- NOTE | 2024-07-12 11:59 | PC.NURSE ---
PHYSICAL THERAPY AMBULATED PATIENT, O2 SAT DROPPED TO 86% ON RA. PATIENT TAKES TAKES TIME TO GET O2 SAT UP ONCE ON O2, SLOWLY INCREASED TO 91%
[2024-07-12] MEDS: VIT B12/Vit C/FA (Nephrovite) TABLET 1 TAB PO (12:29)
--- NOTE | 2024-07-12 12:29 | ESPR_ITS ---
Documentation for date of: 07/12/24 Subjective Subjective Interval history: Hemoglobin hematocrit 8.7 and 25.8 Platelet count 49,000 Pro time INR 1.9 Upper endoscopy showed 1 esophageal varices not large enough for band ligation and hypertensive portal gastropathy Patient can be discharged home after discussion with the internal medicine team to be followed by the PCP Exam Vital Signs Temp Pulse Resp BP Pulse Ox O2 Del Method O2 Flow Rate 98.9 F 78 20 111/68 97 Nasal Cannula 2 07/12/24 08:00 07/12/24 08:56 07/12/24 08:00 07/12/24 08:56 07/12/24 08:00 07/12/24 08:00 07/12/24 08:00 Objective Labs 07/12/24 04:45 07/12/24 04:45 Labs: Laboratory Results - last 24 hr 07/12/24 04:45 WBC 6.7 RBC 2.97 L Hgb 8.7 L Hct 25.8 L MCV 87 MCH 29.3 MCHC 33.7 RDW Std Deviation 65.3 H Plt Count 49 L Neut % (Auto) 76 Lymph % (Auto) 12 [place] % (Auto) 11 Eos % (Auto) 1 Baso % (Auto) 0 Neut # (Auto) 5.1 Lymph # (Auto) 0.8 L [place]flower # (Auto) 0.7 Eos # (Auto) 0.1 Baso # (Auto) 0.0 Immature Gran # (Auto) 0.03 H Absolute Nucleated RBC 0.02 H Immature Gran % 0 Nucleated RBC % 0 Sodium 137 Potassium 3.6 Chloride 105 Carbon Dioxide 27.6 Anion Gap 4 L BUN 11 Creatinine 0.6 Estim Creat Clear Calc 113.8 eGFR > 60 BUN/Creatinine Ratio 18 Glucose 78 Calculated Osmolality 272 L Calcium 7.5 L Corrected Calcium 8.9 Total Bilirubin 4.2 H AST 20 ALT 12 Alkaline Phosphatase 203 H D Total Protein 5.8 Albumin 2.2 L Globulin 3.6 H Albumin/Globulin Ratio 0.6 L Misc Test Result Platelets confirmed Impressions Impression: # Gastritis/hypertensive portal gastropathy # 1+ esophageal varices Okay to discharge patient home To be followed by PCP Assessment & Plan A&P Narrative # Melena in the setting of cirrhotic liver disease due to alcohol Differential diagnosis include esophageal variceal bleeding, hypertensive portal gastropathy leading to mucosal oozing of blood Peptic ulcer disease in the form of duodenal ulcer gastric ulcer Erosive esophagitis Plan Consent obtained for fiberoptic esophagogastroduodenoscopy with possible therapeutic intervention under intravenous moderate sedation IV Protonix Would recommend octreotide infusion at 50 mcg/h Will follow the patient Thank you very much for the opportunity to participate in the care of this patient Time Spent With Patient Time: Total time spent is greater than 50% in coordination of care (as documented) at patient's floor/unit and/or counseling patient:
--- NOTE | 2024-07-12 12:43 | PC.NURSE ---
0339 DR FORMAN CALLED AN INFORMED PHYSICAL THERAPY NOTES ARE AVAILABLE.
--- NOTE | 2024-07-12 12:48 | PD.RESDS ---
Planned Discharge Date 07/12/24 DS: Providers Provider Date of admission: 07/10/24 20:45 Primary care physician: Adalberto Schuster MD Admitting Provider: Ld Guadarrama MD Attending Provider on Admission: Ld Guadarrama MD Consults: 07/10/24 19:18 Consult to Gastroenterology Stat Comment: Upper GI bleed Consulting Provider: Gail Hall 07/12/24 03:51 Referral Physical Therapy Routine Comment: Physician Instructions: Attending Provider on DC: Jatinder Hatch MD Discharging Provider: Jatinder Hatch MD DS: Diagnosis Problem List Completed Was Problem List Reviewed/Reconciled?: Yes Hospital Course Hospital Course Hospital course: 74-year-old male with past medical history of liver cirrhosis secondary to alcohol use disorder (last drink was about 4 years ago) and esophageal varices without banding, using inhalers?Asthma, presenting to the ED on 07/10 with abdominal pain which started on 07/09 and dark tarry stools. Labs showed mild anemia hemoglobin 10.2, platelets 49. CMP is within normal limits except for elevated total bilirubin and low albumin. Abdomen/pelvis CT showed Atelectasis and/or pneumonia right base. Cirrhosis, mild splenomegaly. Mild ascites. 2 mm upper pole nonobstructing right renal calculus. Diffuse wall thickening colon, Hepatic colopathy pattern. patient was given IV fluids, octreotide and pantoprazole during the hospital stay. Dr. Hall was consulted and upper GI endoscopy was done. Upper endoscopy showed 1 esophageal varices not large enough for band ligation and hypertensive portal gastropathy. Patient was noted to have wheeze during the hospital stay. While discharging, patient was noted to have low oxygen saturations without oxygen and desaturating while moving around without oxygen. So planned to discharge to home with home oxygen Patient was discharged to home with home oxygen and home health with the following medications and recommendations. Follow up with your PCP within 1-2 weeks Use oxygen as needed to maintain saturations >90% Use midodrine if your systolic blood pressure drops below 100 Recommend a low salt diet Complete augmentin course as directed for community-acquired pneumonia. #Upper GI bleed #Hypotension, resolved #Leukocytosis, resolved Patient presenting with abdominal pain yesterday (07/09) which has since subsided Of note, patient had black tarry stools about 3 to 4 days ago which have also subsided On exam, patient did not have any active signs of bleeding; no hematuria, hematemesis, hematochezia or melena FOBT was positive but there is no inpatient indication for it Patient had MAP in the low 50s; 2.5 L of IV normal saline were given Patient's hemoglobin went from 10.2 ==> 8.8 secondary to likely hemodilution with 2.5 L of IV fluids CT Abd/Pelvis shows Atelectasis and/or pneumonia right base, suggest PA lateral chest follow-up Plan: Dr. Hall, gastroenterology, consulted, EGD later in the day Patient will be n.p.o. except for medications after 8 AM 07/15 EGD IV octreotide and Protonix are on Monitor for any new active signs of bleeding Midodrine 10 mg p.o. twice daily Holding antihypertensives at this time (Lasix and spironolactone patient apparently has not taken them) #Liver cirrhosis secondary to alcohol use disorder #Bilirubinemia #Hypoalbuminemia #Normocytic anemia #Thrombocytopenia #CONNOR, resolved #Coronary artery disease s/p stent placement #Generalized anxiety disorder #Chronic back pain #Conjunctivitis #2 mm upper pole nonobstructing right renal calculus Patient plan of care was discussed with the attending physician, Dr. Alem Hatch, PGY1 Time Spent with Patient Time attestation: Total time spent providing and/or coordinating discharge services: Time spent: Greater than 30 minutes Home Health Home Health Referral Orders: 07/12/24 12:37 Home Health Referral Routine Reason For Exam: home oxygen, home PT Home-Bound The patient must either because of illness or injury, need the aid of supportive devices such as crutches, canes, wheelchairs, and walkers; the use of special transportation; or the assistance of another person in order to leave their place of residence; OR have a condition such that leaving his or her home is medically contraindicated. In addition, the patient also meets the following criteria: patient is normally unable to leave the home and leaving home requires considerable taxing effort. Addendum to Home Health Certification Practitioner's Certification: I certify that the patient has been under my care in the hospital and the care of attending physician (see below). We had a [id number] encounter on (see date below). My clinical findings indicate that the patient is home bound per the above criteria and the Home Health Services noted in these orders are medically necessary. The primary reason for the [id number]-[id number] encounter is related to the fact that the patient requires home health services. Date Certifying [id number] Physician Encounter: 07/10/24 Physician's Name who will Assume Oversight for Services: Adalberto Schuster Physician's Phone No.who will Assume Oversight for Service: ENGINEERING TECHNICAL SPECIALIST - Community Resources: Yes PT to Evaluate: Yes PT to evaluate and provide a treatmnet plan to increase patient's mobility and strength. Wound Care: No IV Therapy: No RN Safety Evaluation: Yes RN to evaluate and create a plan of care that will produce positive outcomes. Palliative Treatment: No Palliative treatment and evaluate the need for hospice. Home Health Aide - Personal Care: Yes Home Health Aide to assist with any ADL's. Exam Vital Signs Temp Pulse Resp BP Pulse Ox O2 Del Method O2 Flow Rate 97.8 F 83 19 114/65 93 L Nasal Cannula 2 07/12/24 12:00 07/12/24 12:00 07/12/24 12:00 07/12/24 12:00 07/12/24 12:07/12/24 12:00 07/12/24 12:00 Narrative Exam General: Awake. Bilateral redness around the eyes noted with yellowish discharge from the eyes, likely bacterial conjunctivitis. HEENT: Normocephalic, atraumatic, mucous membranes moist. Heart: Regular rate and rhythm, no murmurs. Lungs: Bilateral diffuse wheeze heard. Abdomen: Soft, nondistended, nontender, positive bowel sounds. ?No guarding or rebound tenderness. Neurologic: Alert and oriented x3, no gross neurological deficit, and patient able to move all 4 extremities. Extremities: No edema. Skin: No rash or ecchymoses. Discharge Plan Plan Patient Disposition: Home w/HOME HEALTH Patient condition on transfer: Stable Care Plan Goals: Follow up with your PCP within 1-2 weeks Use oxygen as needed to maintain saturations >90% Use midodrine if your systolic blood pressure drops below 100 Recommend a low salt diet Complete augmentin course as directed for community-acquired pneumonia. Prescriptions/Referrals Prescriptions/Med Rec: New midodrine 10 mg tablet 10 mg PO BID PRN (Reason: SBP < 100) 30 Days Qty: 60 0RF amoxicillin-pot clavulanate 875-125 mg tablet 1 tab PO BID 5 Days Qty: 10 0RF pantoprazole 40 mg tablet,delayed release (DR/EC) 40 mg PO BID Qty: 60 0RF Continued spironolactone 25 mg tablet 25 mg PO QDAY 14 Days Qty: 14 0RF Patient Comments: TAKE 1 TABLET BY MOUTH EVERY DAY escitalopram oxalate 10 mg tablet 10 mg PO QDAY 14 Days Qty: 14 0RF furosemide [Lasix] 20 mg tablet 20 mg PO BID Qty: 60 0RF Trelegy Ellipta 200-62.5-25 mcg Blister With Device 1 inh INHALATION QDAY hydrocodone-acetaminophen 10-325 mg tablet 1 tab PO Q6H PRN (Reason: Pain) Patient Comments: TAKE 1 TABLET BY MOUTH EVERY 6 HOURS NEEDED FOR SEVERE PAIN alprazolam 0.5 mg tablet 0.5 mg PO BID PRN (Reason: Anxiety) Patient Comments: TAKE 1 TABLET BY MOUTH TWICE DAILY NEEDED FOR ANXIETY tamsulosin 0.4 mg capsule 0.4 mg PO DAILY Patient Comments: TAKE 1 CAPSULE BY MOUTH TWICE DAILY DIRECTED Rx Instructions: from previous pharmacy refill list ferrous sulfate 324 mg (65 mg iron) tablet,delayed release (DR/EC) 324 mg PO BID Qty: 60 0RF Referrals: Adalberto Schuster MD [Primary Care Provider] - Patient/Caregiver Discharge Instructions Discharge Activity: as per physical therapy Education Materials: Bleeding Gastrointestinal, Upper GI Endoscopy, ED Low Blood Pressure, All Causes Print Language: [place] Activity Restrictions/Additional Instructions: Follow up with your PCP within 1-2 weeks Use oxygen as needed to maintain saturations >92 MUST USE AN OXIMETER TO CHECK OXYGEN LEVEL, OTHERWISE KEEP OXYGEN ON. Use midodrine if your systolic blood pressure drops below 100, MUST TAKE B/P EVERY MORNING AND IF TOP NUMBER LESS THAN 100 TAKE. Recommend a low salt diet SIGNS OF LOW OXYGEN ARE SHORTNESS OF BREATHE, RAPID BREATHING, CONFUSION, DIZZINESS, LIGHTHEADEDNESS HEADACHE Stand Alone Forms: Janet Award Info., Patient Portal Info Letter Discharge Order Discharge Orders: Discharge (Routine); Ordered 07/12/24 Ordered By: Jatinder Charitha Aremanda Quality Discharge Quality Measures VTE prophylaxis MD Attestestation Attestation I reviewed labs, imaging, EKG, home medications and prior available records. Face to face evaluation was performed by me. I have personally examined the patient and discussed assessment and plan with the IM team. I reviewed the resident note and agree with the plan with exceptions as below. SBP Upper GI bleed Alcoholic liver cirrhosis Acute anemia Thrombocytopenia Elevated INR Patient developed fevers. Concern for SBP. Started IV ceftriaxone. Will discharge on p.o. Augmentin. EGD showed grade 1 esophagitis that did not need banding and gastritis with bleeding. Started pantoprazole 40 mg twice daily. Okay to discharge from GI standpoint. Continue alcohol abstinence Monitor CBC as outpatient Time spent is 40 minutes. More than 50% of the time was spent on patient education and coordination of care.
--- NOTE | 2024-07-12 14:48 | PC.SS ---
[employer] Consultant (SW) Siri informed by Araceli that patient had discharge order. SW met with patient [id number] to discuss discharge plan. SW introduced self, role and reason for visit. Patient appeared alert and oriented to self, place and situation. SW informed patient that PT recommended short therm therapy at SNF. Patient refused SNF due to not liking the food. Patient reported that his caregiver, Briana provides assistance. Per Dr. Ferrara, patient will require O2 at home. SW completed order and faxed it to [facility] in [place]. Patient will return home with home health. SW contacted [facility] and spoke to dispatch-Eleno who was provided with verbal information for Dorianwally to go and leaf size picker the O2. SW notified Araceli.
--- NOTE | 2024-07-12 16:12 | PC.NURSE ---
1600 CRUCIBLE PACKER CONCERNED THAT PATIENTS SPEECH SOUNDS SLURRED COMPARED TO THIS AM. WENT TO SEE PATIENT AND SPEECH WAS GARBLED AND AND PATIENT SEEMED CONFUSED. DR FORMAN CALLED AND INFORMED OF CONCERN IN CHANGE OF SPEECH. DR GEORGE CAME TO SEE HIM AND HE DOESNT SEE ANY DIFFERENCE AND STATES PATIENT ANSWERING APPROPRIATELY. WENT TO SEE PATIENT AND DOES APPEAR MORE ALERT AND SPEECH CLEARER.
--- NOTE | 2024-07-14 08:51 | PC.CM ---
Addendum entered by Emeka Stover RN 07/14/24 15:15: [facility] , spoke to Suki for start of care date. Soonest start of care date is 07/21/24. She stated they are full this week. Addendum entered by Emeka Stover RN 07/14/24 08:54: Booked [facility] and pending start of care date. Addendum entered by Emeka Stover RN 07/14/24 08:52: Christianne from [facility] responded on [employer] and wants me to book [facility]. Original Note: Miriam's notes on [employer] on 07/12/24 Patient has [employer] insurance. I am waiting to see if [facility] will accept patient. If they cannot accept [facility] is interested. I have not booked with anyone at this time until I hear from [facility].
== END 2024-07-12 18:13 | disposition home health service (06) | DRG 432 ==
LOC: SERX 20:04 → SERHOLD 20:50 → S2NX 22:37
PROVIDERS: Nurse Practitioner Family; Nurse Practitioner Primary Care; Specialist; Admitting Provider Internal Medicine; Emergency Provider Emergency Medicine; PCP Family Medicine; Visit Provider Internal Medicine
PROC: 0DJ08ZZ Inspection of Upper Intestinal Tract, Via Natural or Artificial Opening Endoscopic (ICD-10-PCS; CPT 43239; principal; 2024-07-11 16:30)
DX: K70.31 Alcoholic cirrhosis of liver with ascites (principal); I85.11 Secondary esophageal varices with bleeding; N17.9 Acute kidney failure, unspecified; K76.6 Portal hypertension; I95.9 Hypotension, unspecified; F10.10 Alcohol abuse, uncomplicated; E88.09 Other disorders of plasma-protein metabolism, not elsewhere classified; D64.9 Anemia, unspecified; D69.6 Thrombocytopenia, unspecified; R16.1 Splenomegaly, not elsewhere classified; G89.29 Other chronic pain; R79.89 Other specified abnormal findings of blood chemistry; I25.10 Atherosclerotic heart disease of native coronary artery without angina pectoris; F41.1 Generalized anxiety disorder; H10.9 Unspecified conjunctivitis; N20.0 Calculus of kidney; Z95.5 Presence of coronary angioplasty implant and graft; Z87.442 Personal history of urinary calculi; K31.89 Other diseases of stomach and duodenum; D72.829 Elevated white blood cell count, unspecified; K29.70 Gastritis, unspecified, without bleeding
CPT/HCPCS: 36415; 71046; 74176; 80053; 80061; 81001; 82140; 83540; 83550; 83690; 83735; 84100; 84439; 84443; 84484; 85014; 85018; 85025; 85610; 93005; 96360; 96361; 97162; 99285; J0696; J1200; J2250; J2354; J2470; J3010; J3420; J3475; J7030; J7040; J7050; P9047; A9270

== ENCOUNTER → 2024-07-30 | Outpatient (CLI) | payer OTHER, SELFPAY | END | disposition home or self-care (01) | LOC: SLDO 12:43 | PROVIDERS: PCP Nurse Practitioner Family; Referring Provider Nurse Practitioner Family; Visit Provider Nurse Practitioner Family | DX: N39.0 Urinary tract infection, site not specified (principal) | CPT/HCPCS: 87077; 87086; 87186 ==

== ENCOUNTER → 2024-08-06 | Outpatient (CLI) | payer OTHER, SELFPAY ==
--- NOTE | 2024-08-06 14:33 | XR_ITS ---
Examination: PA lateral chest 2 views TECHNIQUE: Upright PA lateral chest 2 views Exam date and time: August 06, 2024 at 1444 hours Comparison July 11, 2024 indications: Difficulty breathing 5 years. FINDINGS: Atelectasis and/or early pneumonia right base Mild prominence left ventricle Ectatic thoracic aorta Prominent osteopenia IMPRESSION: Atelectasis and/or early pneumonia right base
== END | disposition home or self-care (01) ==
LOC: CDIM 14:11
PROVIDERS: PCP Family Medicine; Referring Provider Nurse Practitioner Family; Visit Provider Nurse Practitioner Family
DX: J98.11 Atelectasis (principal)
CPT/HCPCS: 71046

== ENCOUNTER → 2024-08-07 | Outpatient (CLI) | payer OTHER, SELFPAY ==
[2024-08-07 13:45] LABS: Misc Send Out* See Sep Rpt
[2024-08-07 14:06] LABS: Basophils % (Auto) 1 % (0-2.5); Eosinophils # (Auto) 0.1 Thou/mm3 (0.0-0.5); Eosinophils % (Auto) 3 % (0-10); Hematocrit 32.7 % (41.0-53.0); Hemoglobin 10.7 g/dL (13.5-16.0); Immature Granulocytes % (Auto) 1 % (0-0); Immature Granulocytes Auto 0.02 Thou/mm3 (0.00-0.00); Lymphocytes # (Auto) 0.8 Thou/mm3 (1.0-4.8); Lymphocytes % (Auto) 21 % (10-50); Mean Corpuscular HGB Conc 32.7 g/dl (31.0-37.0); Mean Corpuscular Hemoglobin 30.4 pg (25.0-35.0); Mean Corpuscular Volume 93 fL (80-100); Monocytes # (Auto) 0.3 Thou/mm3 (0.0-0.8); Monocytes % (Auto) 6 % (0-12); Neutrophils # (Auto) 2.7 Thou/mm3 (1.8-7.7); Neutrophils % (Auto) 69 % (37-80); Nucleated Red Blood Cell % 0 /100 WBC (0); RDW Standard Deviation 77.2 fL (35.1-43.9); Red Blood Count 3.52 Miln/mm3 (4.50-5.90); White Blood Count 3.9 Thou/mm3 (3.8-10.6)
[2024-08-07 14:21] LABS: Glucose Estimated Average 77 mg/dL (80-131); Hemoglobin A1C 4.3 % Hgb (4.8-6.0)
[2024-08-07 14:24] LABS: Ammonia 57 uMol/L (11-32); Platelet Count 55 Thou/mm3 (140-440)
[2024-08-07 14:28] LABS: Alanine Aminotransferase 22 U/L (10-49); Albumin, Serum 2.4 gm/dL (3.4-4.8); Albumin/Globulin Ratio 0.5 (1.2-2.2); Alkaline Phosphatase 285 U/L (46-116); Anion Gap 8 (7-16); Aspartate Amino Transferase 49 U/L (0-34); BUN/Creatinine Ratio 10 Ratio (12-20); Bilirubin,Total 5.9 mg/dL (0.3-1.2); Blood Urea Nitrogen 6 mg/dL (9-23); Calcium 8.3 mg/dL (8.3-10.6); Calcium (Corrected) 9.6 mg/dL (8.5-10.1); Carbon Dioxide 25.2 mMol/L (20.0-31.0); Chloride 104 mMol/L (98-107); Creatinine (Component) 0.6 mg/dL (0.6-1.3); Globulin 4.9 gm/dL (2.3-3.5); Glucose 90 mg/dL (74-106); Iron 125 mcg/dL (65-175); Lipase 31 U/L (12-53); Osmolality,Calculated 271 (275-295); Phosphorous 2.4 mg/dL (2.4-5.1); Potassium 3.3 mMol/L (3.4-5.1); Sodium 137 mMol/L (136-145); Thyroid Stimulating Hormone 1.84 uIU/mL (0.55-4.78); Total Protein 7.3 gm/dL (5.7-8.2); eGFR > 60 See Note
[2024-08-07 14:43] LABS: Cholesterol 100 mg/dL (132-200); HDL Cholesterol 20 mg/dL (40-60); LDL Cholesterol,Calculated 65 mg/dL (0-130); Triglycerides 77 mg/dL (30-150)
[2024-08-07 15:28] LABS: Slide Review Platelets confirmed
[2024-08-07 20:37] LABS: Ferritin 43 ng/mL (10.5-307.3); PSA Medicare Annual Scrn 0.77 ng/mL (0-4.00); Percent Iron Saturation 47 % (20-55); T4 (Thyroxine) 6.1 mcg/dL (4.5-10.9); Total Iron Binding Capacity 262 mcg/dL (250-425); Unsaturated Iron Binding 137 (225-295)
[2024-08-08 02:08] LABS: Vitamin D 25 Hydroxy Total 23.2 ng/mL (7.3-40.2)
[2024-08-15 06:57] LABS: Gamma Glutamyl Transpeptidase* 31 U/L (3-70); Methylmalonic Acid, GC/MS/MS* 77 nmol/L (69-390)
== END | disposition home or self-care (01) ==
LOC: COPL 13:16
PROVIDERS: PCP Family Medicine; Referring Provider Nurse Practitioner Family; Visit Provider Nurse Practitioner Family
DX: R63.0 Anorexia (principal); K70.30 Alcoholic cirrhosis of liver without ascites; I25.10 Atherosclerotic heart disease of native coronary artery without angina pectoris; D64.9 Anemia, unspecified; Z12.5 Encounter for screening for malignant neoplasm of prostate
CPT/HCPCS: 36415; 80053; 80061; 82140; 82172; 82306; 82728; 82977; 83036; 83090; 83540; 83550; 83690; 83921; 84100; 84153; 84436; 84443; 84466; 85025; G0103

== ENCOUNTER → 2024-08-20 | Outpatient (CLI) | payer OTHER, SELFPAY ==
[2024-08-20 14:42] LABS: Amphetamine/Methamp Scrn,U Negative (Negative); Barbiturate Screen,Urine Negative (Negative); Benzodiazepines Screen,Urine Negative (Negative); Benzoylecgonine Screen, Ur Negative (Negative); Fentanyl Screen,Urine Positive (Negative); Opiate Screen,Urine Negative (Negative); THC Screen,Urine Positive (Negative)
[2024-08-20 14:43] LABS: Alanine Aminotransferase 24 U/L (10-49); Albumin, Serum 2.4 gm/dL (3.4-4.8); Albumin/Globulin Ratio 0.5 (1.2-2.2); Alkaline Phosphatase 367 U/L (46-116); Anion Gap 7 (7-16); Aspartate Amino Transferase 56 U/L (0-34); BUN/Creatinine Ratio 12 Ratio (12-20); Blood Urea Nitrogen 7 mg/dL (9-23); Calcium (Corrected) 9.3 mg/dL (8.5-10.1); Carbon Dioxide 28.5 mMol/L (20.0-31.0); Chloride 100 mMol/L (98-107); Creatinine (Component) 0.6 mg/dL (0.6-1.3); Globulin 4.8 gm/dL (2.3-3.5); Glucose 131 mg/dL (74-106); Osmolality,Calculated 270 (275-295); Potassium 3.4 mMol/L (3.4-5.1); Sodium 135 mMol/L (136-145); Total Protein 7.2 gm/dL (5.7-8.2); eGFR > 60 See Note
== END | disposition home or self-care (01) ==
LOC: COPL 13:01
PROVIDERS: PCP Family Medicine; Referring Provider Nurse Practitioner Family; Visit Provider Nurse Practitioner Family
DX: E87.6 Hypokalemia (principal); Z79.891 Long term (current) use of opiate analgesic
CPT/HCPCS: 36415; 80053; 80307

== ENCOUNTER 2024-08-28 13:34 | Inpatient (IN) | payer OTHER, MEDICARE, SELFPAY ==
[2024-08-28] VITALS (18 sets, daily range): BP systolic 100–146; BP diastolic 57–120; PULSE 116–126; RESP 19–96; TEMP 36.6–37.1; O2SAT 90–100; BMI 23.6
--- NOTE | 2024-08-28 14:50 | PD.EDRME ---
Rapid Medical Screening Exam RME Arrival date/time: 08/28/24 13:34 Chief Complaint: Altered Mental Status Time Seen by Provider: 08/28/24 14:35 Vital signs: Vital Signs Temperature 98.5 F 08/28/24 13:43 Pulse Rate 120 H 08/28/24 13:43 Respiratory Rate 24 H 08/28/24 13:43 Blood Pressure 112/67 08/28/24 13:43 Pulse Oximetry (%) 100 08/28/24 13:43 Oxygen Delivery Method Oxy Mask 08/28/24 13:43 Oxygen Flow Rate 15 08/28/24 13:43 RME Narrative: 74-year-old male with history of cirrhosis, anxiety, iron deficiency anemia, GERD coming in with altered mental status x 1 day. I have greeted and performed a focused initial assessment of this patient. A comprehensive ED assessment and evaluation of the patient, analysis of all test results, and completion of the medical decision making process will be conducted by additional ED providers.
--- NOTE | 2024-08-28 14:52 | EKG_ITS ---
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[employer]: : [id number] Requested By: Priyanka Perez Order Number: [id number] [place] MD: Priyanka Perez Measurements Intervals [place] Rate: 123 P: IA: QRS: -77 QRSD: 104 T: -18 QT: 329 QTc: 472 Interpretive Statements SUPRAVENTRICULAR TACHYCARDIA LOW QRS VOLTAGE IN PRECORDIAL LEADS [QRS DEFLECTION < 1.0 mV IN CHEST LEADS] PATTERN CONSISTENT WITH PULMONARY DISEASE POSSIBLE RIGHT VENTRICULAR CONDUCTION DELAY [RSR (QR) IN V1/V2] MODERATE T-WAVE ABNORMALITY, CONSIDER ANTERIOR ISCHEMIA [-0.1+ mV T WAVE IN V3/V4] Compared to ECG 07/10/2024 14:54:02 Low QRS voltage now present T-wave abnormality now present Possible ischemia now present Sinus tachycardia no longer present Right bundle-branch block no longer present Left anterior fascicular block no longer present /store/S0/[id number].pdf
--- NOTE | 2024-08-28 16:17 | PC.NURSE ---
BIBA, PT ORIENTED TO SELF ONLY, UNABLE TO GET, TIME, PLACE OR SITUATION. PT HAS EQUAL STRENGTH IN EXTREMITIES. DENIES ANY PAIN OR DISCOMFORT AT THIS TIME. TACHY ON TELE, CALL HIGH IN REACH
[2024-08-28 16:53] LABS: Ammonia 54 uMol/L (11-32)
[2024-08-28 16:55] LABS: Alanine Aminotransferase 28 U/L (10-49); Albumin, Serum 1.9 gm/dL (3.4-4.8); Albumin/Globulin Ratio 0.5 (1.2-2.2); Alkaline Phosphatase 185 U/L (46-116); Anion Gap 15 (7-16); Aspartate Amino Transferase 59 U/L (0-34); BUN/Creatinine Ratio 39 Ratio (12-20); Bilirubin,Total 4.9 mg/dL (0.3-1.2); Blood Urea Nitrogen 31 mg/dL (9-23); Calcium 7.6 mg/dL (8.3-10.6); Calcium (Corrected) 9.3 mg/dL (8.5-10.1); Chloride 111 mMol/L (98-107); Creatinine (Component) 0.8 mg/dL (0.6-1.3); Estimated Creatinine Clearance 81.1 mL/min (>60); Globulin 3.8 gm/dL (2.3-3.5); Glucose 75 mg/dL (74-106); Lipase 24 U/L (12-53); Magnesium 1.7 mg/dL (1.6-2.6); Osmolality,Calculated 284 (275-295); Phosphorous 3.9 mg/dL (2.4-5.1); Sodium 140 mMol/L (136-145); Total Protein 5.7 gm/dL (5.7-8.2); Troponin I < 0.020 ng/mL (0.0-0.045); eGFR > 60 See Note
[2024-08-28 17:03] LABS: Basophils % (Auto) 0 % (0-2.5); Eosinophils % (Auto) 0 % (0-10); Immature Granulocytes % (Auto) 1 % (0-0); Lymphocytes # (Auto) 1.3 Thou/mm3 (1.0-4.8); Lymphocytes % (Auto) 7 % (10-50); Mean Corpuscular HGB Conc 31.7 g/dl (31.0-37.0); Mean Corpuscular Hemoglobin 31.4 pg (25.0-35.0); Mean Corpuscular Volume 99 fL (80-100); Monocytes % (Auto) 6 % (0-12); Neutrophils % (Auto) 87 % (37-80); Nucleated Red Blood Cell # 0.02 Thou/mm3 (0.00-0.00); Nucleated Red Blood Cell % 0 /100 WBC (0); Platelet Count 94 Thou/mm3 (140-440); RDW Standard Deviation 72.3 fL (35.1-43.9); Red Blood Count 2.42 Miln/mm3 (4.50-5.90); White Blood Count 18.4 Thou/mm3 (3.8-10.6)
[2024-08-28 17:07] LABS: Hemoglobin 7.6 g/dL (13.5-16.0)
[2024-08-28 17:27] LABS: Carbon Dioxide 13.8 mMol/L (20.0-31.0)
--- NOTE | 2024-08-28 17:29 | XR_ITS ---
Examination: AP chest single view Technique one AP portable supine chest single view Exam date and time: August 28, 2024 1801 hrs. Comparison August 06, 2024 Indications: Shortness of breath today. Findings: Mild prominence of ventricle Moderate vascular congestion Prominent elevation right hemidiaphragm with subsegmental atelectasis in the right lower lung zone Prominent osteopenia Impression: Subsegmental atelectasis right base Moderate vascular congestion
--- NOTE | 2024-08-28 17:29 | XR_ITS ---
Examination: CT brain head without contrast. 2-D sagittal coronal reconstructions Date and time of exam:August 28, 2024 1020 hrs. Indications: Altered mental status today CTDI: vol (mGy): 52.3 DLP: (mGycm):1040 Technique: Multiple CT axial sections of the brain have been obtained, 5 mm slice thickness. Contrast has not been administered. 2-D sagittal, coronal reconstructions have been obtained Low dose protocols were performed. One or more of the following dose reduction techniques were used; automated exposure control, adjustment of the mA and/or KV according to patient size, use of iterative reconstruction technique. Findings: No significant ventricular enlargement. Intra-axial or extra-axial hemorrhage density is not seen. No mass effect or midline shift Basal cisterns are not remarkable. Fourth ventricle is midline. Cranial vault intact. Impression: Negative for acute hemorrhage, mass effect or midline shift Advise clinical correlation and follow-up accordingly
[2024-08-28 17:45] LABS: B-Type Natriuretic Peptide 30 pg/mL (0-100)
--- NOTE | 2024-08-28 17:47 | PC.NURSE ---
SPOKE W/SISTER LAVINIA, SHE WILL BE COMING TO VISIT PT. ALSO SPOKE W/CAREGIVER WHO STATES PT HAS NOT HAD ANY DRINKS FOR 3 YRS. NORMALLY WHEN THIS HAPPENS HE HAS A GI-BLEED AND GETS TRANSFUSED.
--- NOTE | 2024-08-28 17:51 | PD.EDAMS ---
Altered Mental Status RME/HPI General Chief Complaint: Altered Mental Status Stated Complaint: AMS Time Seen by Provider: 08/28/24 14:35 Arrival date/time: 08/28/24 13:34 RME / HPI RME / HPI narrative: 74-year-old male patient with significant history of liver cirrhosis, iron deficiency anemia, GERD, anxiety, BPH, who lives alone, was brought in by EMS for evaluation regarding altered mental status. Apparently patient had a caregiver visit him every day for total of 4 hours and today patient was noted to be naked altered only alert to himself and was noted to bleeding described as dark blood scattered all over the floor. Patient is denying any complaints. Was admitted here last June and endoscopy was done by Dr. Hall. I spoke with the caregiver, who told me that patient is taking his medication on a regular basis including lactulose. Yesterday patient was still noted to be able to carry on conversation. But been complaining of not feeling well. No fever was noted no cough was noted no vomiting was noted Related Data Home Medications ?Medication ?Instructions ?Recorded ?Confirmed alprazolam 0.5 mg tablet 0.5 mg PO BID PRN Anxiety 06/25/23 11/22/23 hydrocodone 10 mg-acetaminophen 1 tab PO Q6H PRN Pain 06/25/23 11/22/23 325 mg tablet tamsulosin 0.4 mg capsule 0.4 mg PO DAILY 06/25/23 03/19/24 fluticasone fur. 200 mcg-umeclid 1 inh inhalation QDAY 07/11/24 07/11/24 62.5 mcg-vilant 25 mcg inhalat.powder (Trelegy Ellipta) Previous Rx's ?Medication ?Instructions ?Recorded escitalopram oxalate 10 mg tablet 10 mg PO QDAY 14 days #14 tabs 11/23/23 spironolactone 25 mg tablet 25 mg PO QDAY 14 days #14 tabs 11/23/23 furosemide 20 mg tablet (Lasix) 20 mg PO BID #60 tabs 12/24/23 ferrous sulfate 324 mg (65 mg 324 mg PO BID #60 tabs 02/01/24 iron) tablet,delayed release pantoprazole 40 mg tablet,delayed 40 mg PO BID #60 tabs 07/13/24 release Allergies Allergy/AdvReac Type Severity Reaction Status Date / Time No Known Allergies Allergy Unknown Verified 07/10/24 14:08 Review of Systems Review of Systems Narrative Review of Systems: Review of system reviewed and within normal limits except mentioned in HPI ED Exam Narrative Physical exam: VITAL SIGNS: Reviewed. GENERAL APPEARANCE: Alert and oriented x 1, does not commands, no acute distress, HEAD AND FACE: Non-traumatic. ENT: PERRL, pale conjunctiva, eyelid no trauma, Mucous membrane moist. NECK: Supple, nontender, no nuchal rigidity. CHEST: No tenderness, no crepitus, no paradoxical movement, no retractions. LUNGS: Clear, well ventilated, symmetric, no rales, no wheezing, no ronchi, no stridor, good breath sounds bilaterally. HEART: Regular rate, regular rhythm, no murmur, no gallops. ABDOMEN: Soft, positive bowel sounds, nondistended, no guarding, nontender, no rebound, no masses, RECTAL: Deferred. GENITAL: Deferred. NEUROLOGICAL: Gross motor function intact sensory function intact, Appropriate for age. MUSCULOSKELETAL: low back nontender, full range of motion. EXTREMITIES: Nontender, full range of motion. SKIN: Color pale, dry, no rash, no lacerations, no abrasions, no contusions. LYMPHATICS: Deferred. Course Quality Measures none Orders Category Date Time Status COVID-19 Screening Questionnaire NOW Care 08/28/24 19:39 Active Decision to Admit X1 Care 08/28/24 19:38 Active EKG (ED ONLY) *Do not use* NOW Care 08/28/24 14:52 Completed Occult Blood,Stool (Nursing) ONCE Care 08/28/24 17:28 Active Transfuse,blood/blood products ONCE Care 08/28/24 17:50 Active Consult to Gastroenterology Stat Cons 08/28/24 17:[address] head/brain wo con Stat Exams 08/28/24 17:29 Completed EKG (ED Only) Stat Exams 08/28/24 14:52 Draft XR chest 1V Stat Exams 08/28/24 17:29 Completed Alcohol, Blood Medical Stat Lab 08/28/24 16:25 Completed Ammonia Stat Lab 08/28/24 16:25 Completed Antibody Identification Stat Lab 08/28/24 18:41 Completed BNP [B-Type Natriuretic Peptide] Stat Lab 08/28/24 16:50 Completed CBC Stat Lab 08/28/24 16:50 Completed CMP [Comprehensive Metabolic Panel] Stat Lab 08/28/24 16:25 Completed Drug Screen,Urine Stat Lab 08/28/24 20:40 Completed Lipase Stat Lab 08/28/24 16:25 Completed Mag [Magnesium] Stat Lab 08/28/24 16:25 Completed Phosphorous Stat Lab 08/28/24 16:25 Completed Troponin I Stat Lab 08/28/24 16:25 Completed Type and Screen Stat Lab 08/28/24 18:41 Completed Urinalysis Stat Lab 08/28/24 20:56 Completed prbc [Red Blood Cells] Stat Lab 08/28/24 18:41 Completed ALBUTEROL RT 0.5ml [Proventil Rt 0.5ml] Med 08/28/24 17:29 Discontinued 5 mg INH X1 ONE Calcium Gluconate 10% Inj Med 08/28/24 17:31 Discontinued 1 gm IV X1 ONE Dextrose 50% Syr [D50w Syringe Abboject] Med 08/28/24 17:29 Discontinued 50 ml IV X1 ONE Insulin Regular Med 08/28/24 17:29 Discontinued 5 unit IV X1 ONE LORazepam [Ativan Inj] Med 08/28/24 17:28 Discontinued 2 mg IVP X1 ONE LORazepam [Ativan Inj] Med 08/28/24 19:09 Discontinued 2 mg IVP X1 ONE Lactulose Syrup [Enulose Syrup] Med 08/28/24 17:47 Discontinued 20 gm PO X1 ONE Octreotide Acet Inj [SandoSTATIN Inj] Med 08/28/24 17:47 Discontinued 50 mcg IV X1 ONE Ondansetron Inj [Zofran Inj] Med 08/28/24 19:09 Discontinued 4 mg IV X1 ONE Pantoprazole Inj [Protonix Inj] Med 08/28/24 17:47 Discontinued 80 mg IV X1 ONE Sod Polystyrene Sulfon Susp [Kayexalate Susp] Med 08/28/24 17:29 Discontinued 30 gm PO X1 ONE Sodium Chloride 0.9% 1000 ml [Ns] 1,000 ml Med 08/28/24 17:28 Discontinued IV 999 mls/hr Sodium Chloride 0.9% [Ns] 100 ml Med 08/28/24 17:47 Discontinued Octreotide Acet Inj [SandoSTATIN Inj] 1,000 mcg IV 50 mcg/hr Sodium Chloride Rt Janessa 0.9% [NS Rt Janessa 0.9%] Med 08/28/24 17:29 Active 5 ml INH PRN PRN cefTRIAXone/D5w 1gm IV premix [Rocephin/D5w 1gm IV Med 08/28/24 17:48 Discontinued premix] 50 ml IV X1 Vital Signs Vital signs: Vital Signs Temperature 98.5 F 08/28/24 13:43 Pulse Rate 120 H 08/28/24 13:43 Respiratory Rate 24 H 08/28/24 13:43 Blood Pressure 112/67 08/28/24 13:43 Pulse Oximetry (%) 100 08/28/24 13:43 Oxygen Delivery Method Oxy Mask 08/28/24 13:43 Oxygen Flow Rate 15 08/28/24 13:43 Altered Mental Status MDM Narrative MDM Narrative:: 74-year-old male patient with significant history of liver cirrhosis, iron deficiency anemia, GERD, anxiety, BPH, who lives alone, was brought in by EMS for evaluation regarding altered mental status. Apparently patient had a caregiver visit him every day for total of 4 hours and today patient was noted to be naked altered only alert to himself and was noted to bleeding described as dark blood scattered all over the floor. Patient is denying any complaints. Was admitted here last June and endoscopy was done by Dr. Hall. I spoke with the caregiver, who told me that patient is taking his medication on a regular basis including lactulose. Yesterday patient was still noted to be able to carry on conversation. But been complaining of not feeling well. No fever was noted no cough was noted no vomiting was noted Patient was noted to be anemic, hemoglobin of 7.6, from 10.72 weeks ago. While in the ED, patient was noted to be having coffee-ground vomitus. Patient's LFT are noted to be slightly elevated. Total bili also slightly elevated. Urinalysis no UTI. CT scan of the head came back with no acute intracranial abnormality. Chest x-ray came back with no aspiration pneumonia. No abnormality noted. EKG showed sinus tachycardia, ventricular rate of 1 2 3 bpm, no ST segment elevation or depression noted. Patient was started on IV fluids, IV Protonix, IV Sandostatin, and Sandostatin drip. Patient was also given 2 units of packed RBC in the emergency room. I consulted Dr. Hall, GI specialist on-call, patient was seen in the emergency room. Thank you Spoke with hospitalist who admitted the patient. Patient data External records reviewed:: None Clinical information provided by:: patient and family Social determinants that could affect healthcare access:: none Patient has the following chronic illnesses:: History of upper GI bleed, liver cirrhosis, How is presenting disease/condition affected by chronic disease/condition?: caused by Evaluation data The following diagnostics were reviewed and interpreted by me:: lab results, radiology exam(s) and EKG tracing(s) Lab and/or radiology exams considered but not ordered:: None Interpretation Summary: See results in MDM none Medications / Prescriptions Medications or Prescriptions considered but not ordered:: None Medication administrations:: Medication Administration History Acetaminophen (Acetaminophen 325 Mg Tablet) 325 mg PO Q6H PRN PRN Reason: PAIN SCALE 1-3 (mild Stop: 09/27/24 20:27 Albuterol/Ipratropium (Albuterol/Ipratropium (Duoneb) Rt Janessa 3 Ml Nebu) 3 ml INH Q4HRRT PRN PRN Reason: Wheeze Stop: 09/27/24 22:59 Folic Acid (Folic Acid 1 Mg Tablet) 1 mg PO QDAY [facility] Stop: 09/28/24 08:59 Last Admin: 08/29/24 10:19 Dose: Not Given Documented By: Non-Admin Reason: Pt. Lethargic MD aware unable to swallow Ceftriaxone Sodium/Dextrose (Rocephin/D5w 1gm Iv Premix) 50 mls @ 100 mls/hr IV QDAY [facility] Stop: 09/05/24 08:59 Last Admin: 08/29/24 10:07 Dose: 100 mls/hr Documented By: Octreotide Acetate 1,000 mcg/ (Sodium Chloride) 102 mls @ 5.1 mls/hr IV .Q20H [facility]; Protocol Stop: 09/02/24 17:46 Last Admin: 08/29/24 14:57 Dose: 50 mcg/hr, 5.1 mls/hr Documented By: Lactulose (Lactulose Syrup 10 Gm/15 Ml) 200 gm RI TID JERSON; Protocol Stop: 09/28/24 15:59 Last Admin: 08/29/24 15:37 Dose: 200 gm Documented By: Midodrine (Midodrine 5 Mg Tablet) 5 mg PO TID [facility] Stop: 09/29/24 08:24 Pantoprazole Sodium (Pantoprazole Inj 40 Mg Vial) 40 mg IVP BID [facility] Stop: 09/27/24 20:59 Last Admin: 08/29/24 10:32 Dose: 40 mg Documented By: Admin: 08/28/24 21:18 Dose: 40 mg Documented By: ISMAEL Rifaximin (Rifaximin 550 Mg Tablet) 550 mg PO BID [facility] Stop: 09/04/24 20:59 Last Admin: 08/29/24 10:19 Dose: Not Given Documented By: Non-Admin Reason: pt. lethargic aware Admin: 08/28/24 21:35 Dose: 550 mg Documented By: ISMAEL Sodium Chloride (Sodium Chloride Rt Janessa 0.9% 3 Ml Nebu) 5 ml INH PRN PRN PRN Reason: SOLN Stop: 09/27/24 17:28 Last Admin: 08/28/24 18:47 Dose: 3 ml Documented By: AGA Thiamine HCl (Thiamine 100 Mg Tablet) 100 mg PO QDAY [facility] Stop: 09/27/24 20:44 Last Admin: 08/29/24 10:19 Dose: Not Given Documented By: Non-Admin Reason: Pt. lethargic aware Admin: 08/28/24 21:35 Dose: 100 mg Documented By: ISMAEL Discontinued Medications Albuterol (Albuterol Rt 2.5 Mg/0.5 Ml Nebu) 5 mg INH X1 ONE Stop: 08/28/24 17:30 Last Admin: 08/28/24 18:45 Dose: 5 mg Documented By: AGA Calcium Gluconate (Calcium Gluconate 10% Inj 1 Gm/10 Ml Vial) 1 gm IV X1 ONE Stop: 08/28/24 17:32 Last Admin: 08/28/24 18:29 Dose: 1 gm Documented By: ZUHAIR Dextrose (Dextrose 50%-Water Inj 50 Ml Syringe) 50 ml IV X1 ONE Stop: 08/28/24 17:30 Last Admin: 08/28/24 18:28 Dose: 50 ml Documented By: ZUHAIR Sodium Chloride (Ns) 1,000 mls @ 999 mls/hr IV .Q1H1M ONE Stop: 08/28/24 18:28 Last Infusion: 08/28/24 19:28 Dose: Infused Documented By: Admin: 08/28/24 18:27 Dose: 999 mls/hr Documented By: ZUHAIR Octreotide Acetate 1,000 mcg/ (Sodium Chloride) 102 mls @ 5.1 mls/hr IV .Q20H ONE; Protocol Stop: 08/29/24 13:46 Last Admin: 08/28/24 18:48 Dose: 50 mcg/hr, 5.1 mls/hr Documented By: ZUHAIR Ceftriaxone Sodium/Dextrose (Rocephin/D5w 1gm Iv Premix) 50 mls @ 100 mls/hr IV X1 ONE Stop: 08/28/24 18:17 Last Infusion: 08/28/24 19:01 Dose: Infused Documented By: Admin: 08/28/24 18:31 Dose: 100 mls/hr Documented By: ZUHAIR Lactated Ringer's (Lactated Ringers) 1,000 mls @ 75 mls/hr IV .[id number] [facility] Stop: 08/29/24 09:49 Last Admin: 08/28/24 21:36 Dose: 75 mls/hr Documented By: ISMAEL Insulin Human Regular (Insulin Hum Regular 1 Unit/0.01 Ml (Per Unit)) 5 unit IV X1 ONE Stop: 08/28/24 17:30 Last Admin: 08/28/24 18:30 Dose: 5 unit Documented By: ZUHAIR Co-signed By: JAKE Lactulose (Lactulose Syrup 20 Gm/30 Ml Udc) 20 gm PO X1 ONE; Protocol Stop: 08/28/24 17:48 Last Admin: 08/28/24 18:30 Dose: 20 gm Documented By: ZUHAIR Lactulose (Lactulose Syrup 20 Gm/30 Ml Udc) 20 gm PO TID [facility]; Protocol Stop: 09/27/24 21:59 Last Admin: 08/29/24 05:46 Dose: Not Given Documented By: DEL Non-Admin Reason: NPO Admin: 08/28/24 21:36 Dose: 20 gm Documented By: ISMAEL Lactulose (Lactulose Syrup 20 Gm/30 Ml Udc) 20 gm RI TID [facility]; Protocol Stop: 09/28/24 13:59 Lactulose (Lactulose Syrup 20 Gm/30 Ml Udc) 20 gm RI STAT ONE; Protocol Stop: 08/29/24 10:16 Last Admin: 08/29/24 10:23 Dose: 20 gm Documented By: Lactulose (Lactulose Syrup 10 Gm/15 Ml) 200 gm RI X1 ONE; Protocol Stop: 08/29/24 11:13 Last Admin: 08/29/24 11:53 Dose: 200 gm Documented By: Lactulose (Lactulose Syrup 20 Gm/30 Ml Udc) 20 gm RI TID ONE; Protocol Stop: 08/29/24 15:04 Lorazepam (Lorazepam 2 Mg/Ml Vial) 2 mg IVP X1 ONE Stop: 08/28/24 17:29 Last Admin: 08/28/24 19:00 Dose: Not Given Documented By: TM Non-Admin Reason: Cancelled by Provider Lorazepam (Lorazepam 2 Mg/Ml Vial) 2 mg IVP X1 ONE Stop: 08/28/24 19:10 Last Admin: 08/28/24 21:17 Dose: 2 mg Documented By: KD Lorazepam (Lorazepam 2 Mg/Ml Vial) 2 mg IVP X1 ONE Stop: 08/28/24 22:04 Last Admin: 08/28/24 22:06 Dose: 2 mg Documented By: KD Octreotide Acetate (Octreotide Acet Inj 50 Mcg/Ml Vial) 50 mcg IV X1 ONE Stop: 08/28/24 17:48 Last Admin: 08/28/24 18:40 Dose: 50 mcg Documented By: TM Ondansetron HCl (Ondansetron Inj 2 Mg/Ml Inj 2 Ml) 4 mg IV X1 ONE; Protocol Stop: 08/28/24 19:10 Last Admin: 08/28/24 21:17 Dose: 4 mg Documented By: KD Pantoprazole Sodium (Pantoprazole Inj 40 Mg Vial) 80 mg IV X1 ONE Stop: 08/28/24 17:48 Last Admin: 08/28/24 18:29 Dose: 80 mg Documented By: TM Sodium Polystyrene Sulfonate (Sod Polystyrene Sulfon Susp 15 Gm/60 Ml Btl) 30 gm PO X1 ONE Stop: 08/28/24 17:30 Last Admin: 08/28/24 18:30 Dose: 30 gm Documented By: TM Received IV fluids, Kayexalate, Protonix IV, Zofran, Sandostatin, Ativan, lactulose, ceftriaxone IV, albuterol breathing treatment Consultations Consultation(s) initiated? (list below): Yes Consultation #1 (Physician, Specialty, Details): Dr. Hall thank you DrDaniella Diagnosis Differential diagnosis altered mental status: altered mental status and other (Upper GI bleed, anemia altered mental status) Most likely diagnosis given after review of the tests above:: Upper GI bleed, Admission Indicated Admission indicated?: indicated Explain why admission is indicated or not indicated:: Patient is to be admitted for further management. Admission Request Was there a request for admission?: Yes Admission Attestation Admission request attestation: Discussed case with Hospitalist service regarding admission. Discussed patients ED course, exam findings, labs, and radiology results. The Hospitalist [agrees] to accept the patient for admission. Disposition Plan Disposition Plan: Admit Critical Care Time Critical Care Time Total Critical Care Time (min.): 45 Attestation: Critical Care Time The very real possibility of a deterioration of this patient's condition required the highest level of my preparedness for sudden, emergent intervention for the following systems: Cardiac and Metabolic. I provided critical care services, which included medication orders, frequent re-evaluations of the patient's condition and response to treatment, ordering and reviewing test results, and discussing the case with various consultants including: nursing staff, hospitalist, and more. The critical care time associated with the care of this patient was 45 minutes. Discharge Plan Plan Patient Disposition: Admit Acute Care w/in Hospital Problem List Clinical Impression: AMS (altered mental status), Alcoholic cirrhosis of liver, Acute upper gastrointestinal bleeding
[2024-08-28 18:27] LABS: Alcohol, Blood Medical < 3.0 mg/dL (0-10.0)
[2024-08-28] MEDS: SODIUM CHLORIDE 0.9% 1000 ML 1,000 ML 999 ML IV (18:27)
[2024-08-28] MEDS: DEXTROSE 50%-WATER INJ 50 ML SYRINGE IV (18:28)
[2024-08-28] MEDS: CALCIUM GLUCONATE 10% INJ 1 GM/10 ML VIAL IV (18:29)
[2024-08-28] MEDS: PANTOPRAZOLE INJ 40 MG VIAL 80 MG IV (18:29)
[2024-08-28] MEDS: LACTULOSE SYRUP 20 GM/30 ML UDC PO ×2 (18:30→21:36)
[2024-08-28] MEDS: SOD POLYSTYRENE SULFON SUSP 15 GM/60 ML BTL 30 GM PO (18:30)
[2024-08-28] MEDS: INSULIN HUM REGULAR 1 UNIT/0.01 ML (PER UNIT) 5 UNIT IV (18:30)
[2024-08-28] MEDS: cefTRIAXone/D5w 1gm IV premix 50 ML IV (18:31)
[2024-08-28] MEDS: OCTREOTIDE ACET INJ 50 mCg/ML VIAL IV (18:40)
[2024-08-28] MEDS: ALBUTEROL RT 2.5 MG/0.5 ML NEBU 5 MG INH (18:45)
[2024-08-28] MEDS: SODIUM CHLORIDE RT SOL 0.9% 3 ML NEBU 5 ML INH (18:47)
[2024-08-28] MEDS: OCTREOTIDE ACET INJ 1,000 MCG in SODIUM CHLORIDE 0.9% 100 ML 5.1 MCG IV (18:48)
--- NOTE | 2024-08-28 18:58 | PC.NURSE ---
AROUND 1840 WHILE THIS RN WAS ATTEMPTING TO PUT IN A NEW IV LINE THE LINE THE PT HAD FROM EMS WAS INFILTRATED, emergency medicine medical director CAME TO GET PT, HOWEVER, PT WAS ROLLING BACK AND FORTH UNABLE TO SIT STILL FOR IV PLACEMENT. THIS RN ASKED TECH TO COME BACK PT IS CONFUSED, UNABLE TO SIT STILL AND MAY NEED MEDICATION TO CALM HIM FOR CT. PT WAS VOMITING COFFEE GROUND EMESIS ALL OVER THE WALL AND FLOOR.
--- NOTE | 2024-08-28 20:55 | PD.RESHP ---
Documentation for date of: 08/28/24 HPI History of Present Illness Chief complaint: Altered mental status History of present illness: Mr. Stack is a 74-year-old male with past medical history of liver cirrhosis secondary to alcohol use disorder, esophageal varices, ?Asthma/COPD, GERD, anxiety and BPH who was BIBA to [facility] emergency department from home on 08/28/2024 with a chief complaint of altered mental status. Per EMS patient has a caregiver who visit him every day for 4 hours and today when the caregiver arrived patient was found to be naked altered and alert to himself and was noted to have bleeding, described as dark blood scattered all over floor. Patient at bedside is oriented to self, unable to provide history and most history is obtained from patient's chart review. Patient did have EGD done in June, per ED patient's last known well time was yesterday, patient was alert and oriented x 3 was able to carry conversation. ED Course: ED Vitals: On presentation in ED BP 112/67, P120, RR 24, temp 98.5, O2 sat 100 on oxy mask, 15 L ED Labs: ED labs significant for WBC 18.4, hemoglobin 7.6, hematocrit 24, platelet 94, sodium 140, potassium 6.0, chloride 111, bicarb 13.8, BUN 31, bilirubin 4.9, AST 59, ammonia 54, alk phos 185, albumin 1.9, globulin 3.8. UA significant for ketones 1+, RBC 5, WBC 4, stool occult blood positive U-Tox negative, blood alcohol level less than 3 ED Imaging:Chest x-ray in ED significant for moderate vascular congestion, subsegmental atelectasis right base CT head negative for any acute hemorrhage, mass effect or midline shift ED Treatment:Patient was given 1 L NS, amp of D5, calcium gluconate, Protonix 80 mg x 1, 5 units regular insulin, Kayexalate 30 g x 1, lactulose 20 g x 1, ceftriaxone x 1, octreotide 50 mcg x 1, albuterol 5 mg x 1 and was started on octreotide gtt. Patient was given Ativan 2 mg twice in ED. patient was transfused 1 unit PRBC in ED Review of Systems Review of Systems ROS Unobtainable: unobtainable due to mental status Past Medical History Past Medical History Comments PMH COMMENT: Medical history: As stated above Surgical history: Patient has stent placed with Dr. Beebe in 2009 Allergies: NKDA Medications: Pending med rec. 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 Patient used to have heavy alcohol use disorder, last drink was 4 years ago, denies tobacco or illicit drug use. Exam Vital Signs Temp Pulse Resp BP Pulse Ox O2 Del Method O2 Flow Rate 98.5 F 122 H 19 112/67 99 Oxy Mask 15 08/28/24 13:43 08/28/24 18:57 08/28/24 18:57 08/28/24 13:43 08/28/24 18:57 08/28/24 13:43 08/28/24 13:43 Narrative Exam Physical Exam General: Awake, oriented to self, turning around in bed HEENT: Normocephalic, atraumatic, mucous membranes dry. Heart: Regular rate and rhythm, no murmurs. Lungs: Clear to auscultation with no wheezing or crackles. Abdomen: Soft, nondistended, nontender, positive bowel sounds. ?No guarding or rebound tenderness. Neurologic: Alert and oriented x1, no gross neurological deficit, and patient able to move all 4 extremities. Extremities: No edema. Skin: No rash or ecchymoses. Results: Labs 08/28/24 21:15 08/28/24 21:15 Labs: Short CBC 08/28/24 Range/Units 16:50 WBC 18.4 H (3.8-10.6) Thou/mm3 Hgb 7.6 L (13.5-16.0) g/dL Hct 24.0 L (41.0-53.0) % Plt Count 94 L D (140-440) Thou/mm3 BMP 08/28/24 16:25 Sodium 140 Potassium 6.0 H Chloride 111 H Carbon Dioxide 13.8 L* BUN 31 H Creatinine 0.8 Glucose 75 Calcium 7.6 L Cardiac Enzymes 08/28/24 Range/Units 16:25 Troponin I < 0.020 (0.0-0.045) ng/mL Liver Function 08/28/24 Range/Units 16:25 Total Bilirubin 4.9 H (0.3-1.2) mg/dL AST 59 H (0-34) U/L ALT 28 (10-49) U/L Alkaline Phosphatase 185 H (46-116) U/L Albumin 1.9 L (3.4-4.8) gm/dL Quality Measures Quality Measures VTE prophylaxis Advance care planning discussed with:: patient Medications Home Medications and Allergies Home Medications ?Medication ?Instructions ?Recorded ?Confirmed ?Type alprazolam 0.5 mg tablet 0.5 mg PO BID PRN Anxiety 06/25/23 11/22/23 History hydrocodone 10 mg-acetaminophen 1 tab PO Q6H PRN Pain 06/25/23 11/22/23 History 325 mg tablet tamsulosin 0.4 mg capsule 0.4 mg PO DAILY 06/25/23 03/19/24 History fluticasone fur. 200 mcg-umeclid 1 inh inhalation QDAY 07/11/24 07/11/24 History 62.5 mcg-vilant 25 mcg inhalat.powder (Trelegy Ellipta) Allergies Allergy/AdvReac Type Severity Reaction Status Date / Time No Known Allergies Allergy Unknown Verified 07/10/24 14:08 Visit Medications Acetaminophen (Acetaminophen 325 Mg Tablet) 325 mg PO Q6H PRN PRN Reason: PAIN SCALE 1-3 (mild Stop: 09/27/24 20:27 Albuterol/Ipratropium (Albuterol/Ipratropium (Duoneb) Rt Janessa 3 Ml Nebu) 3 ml INH Q4HRRT PRN PRN Reason: Wheeze Stop: 09/27/24 22:59 Octreotide Acetate 1,000 mcg/ (Sodium Chloride) 102 mls @ 5.1 mls/hr IV .Q20H ONE; Protocol Stop: 08/29/24 13:46 Last Admin: 08/28/24 18:48 Dose: 50 mcg/hr, 5.1 mls/hr Lactated Ringer's (Lactated Ringers) 1,000 mls @ 75 mls/hr IV .[id number] JERSON Stop: 08/29/24 09:49 Ceftriaxone Sodium/Dextrose (Rocephin/D5w 1gm Iv Premix) 50 mls @ 100 mls/hr IV QDAY JERSON Stop: 09/05/24 08:59 Octreotide Acetate 1,000 mcg/ (Sodium Chloride) 102 mls @ 5.1 mls/hr IV .Q20H JERSON; Protocol Stop: 09/02/24 17:46 Lactulose (Lactulose Syrup 20 Gm/30 Ml Udc) 20 gm PO TID JERSON; Protocol Stop: 09/27/24 21:59 Pantoprazole Sodium (Pantoprazole Inj 40 Mg Vial) 40 mg IVP BID JERSON Stop: 09/27/24 20:59 Rifaximin (Rifaximin 550 Mg Tablet) 550 mg PO BID JERSON Stop: 09/04/24 20:59 Sodium Chloride (Sodium Chloride Rt Janessa 0.9% 3 Ml Nebu) 5 ml INH PRN PRN PRN Reason: SOLN Stop: 09/27/24 17:28 Last Admin: 08/28/24 18:47 Dose: 3 ml Thiamine HCl (Thiamine 100 Mg Tablet) 100 mg PO QDAY [facility] Stop: 09/27/24 20:44 Discontinued Medications Albuterol (Albuterol Rt 2.5 Mg/0.5 Ml Nebu) 5 mg INH X1 ONE Stop: 08/28/24 17:30 Last Admin: 08/28/24 18:45 Dose: 5 mg Calcium Gluconate (Calcium Gluconate 10% Inj 1 Gm/10 Ml Vial) 1 gm IV X1 ONE Stop: 08/28/24 17:32 Last Admin: 08/28/24 18:29 Dose: 1 gm Dextrose (Dextrose 50%-Water Inj 50 Ml Syringe) 50 ml IV X1 ONE Stop: 08/28/24 17:30 Last Admin: 08/28/24 18:28 Dose: 50 ml Sodium Chloride (Ns) 1,000 mls @ 999 mls/hr IV .Q1H1M ONE Stop: 08/28/24 18:28 Last Admin: 08/28/24 18:27 Dose: 999 mls/hr Ceftriaxone Sodium/Dextrose (Rocephin/D5w 1gm Iv Premix) 50 mls @ 100 mls/hr IV X1 ONE Stop: 08/28/24 18:17 Last Admin: 08/28/24 18:31 Dose: 100 mls/hr Insulin Human Regular (Insulin Hum Regular 1 Unit/0.01 Ml (Per Unit)) 5 unit IV X1 ONE Stop: 08/28/24 17:30 Last Admin: 08/28/24 18:30 Dose: 5 unit Lactulose (Lactulose Syrup 20 Gm/30 Ml Udc) 20 gm PO X1 ONE; Protocol Stop: 08/28/24 17:48 Last Admin: 08/28/24 18:30 Dose: 20 gm Lorazepam (Lorazepam 2 Mg/Ml Vial) 2 mg IVP X1 ONE Stop: 08/28/24 17:29 Last Admin: 08/28/24 19:00 Dose: Not Given Lorazepam (Lorazepam 2 Mg/Ml Vial) 2 mg IVP X1 ONE Stop: 08/28/24 19:10 Octreotide Acetate (Octreotide Acet Inj 50 Mcg/Ml Vial) 50 mcg IV X1 ONE Stop: 08/28/24 17:48 Last Admin: 08/28/24 18:40 Dose: 50 mcg Ondansetron HCl (Ondansetron Inj 2 Mg/Ml Inj 2 Ml) 4 mg IV X1 ONE; Protocol Stop: 08/28/24 19:10 Pantoprazole Sodium (Pantoprazole Inj 40 Mg Vial) 80 mg IV X1 ONE Stop: 08/28/24 17:48 Last Admin: 08/28/24 18:29 Dose: 80 mg Sodium Polystyrene Sulfonate (Sod Polystyrene Sulfon Susp 15 Gm/60 Ml Btl) 30 gm PO X1 ONE Stop: 08/28/24 17:30 Last Admin: 08/28/24 18:30 Dose: 30 gm Assessment & Plan Plan Assessment and plan: Summary: Mr. Stack is a 74-year-old male with past medical history of liver cirrhosis secondary to alcohol use disorder, esophageal varices, ?Asthma/COPD, GERD, anxiety and BPH who was BIBA to [facility] emergency department from home on 08/28/2024 with a chief complaint of altered mental status. # Acute metabolic encephalopathy Patient presented altered to the ED, at baseline patient conversational, alert and oriented x 3, likely diagnosis hepatic encephalopathy considering patient's liver disease. Patient on examination oriented to self, moving around in bed unable to hold conversation. Ammonia level 57 on admission. Patient has underlying metabolic acidosis. Plan: -Started on lactulose 20 g 3 times daily, rifaximin 550 twice daily -Started on oral thiamine -Follow CBC, CMP in a.m., follow-up acid-base status -Ordered vitamin B12, folate, thiamine levels -Delirium precautions #Upper GI bleed #Esophageal varices #Liver cirrhosis secondary to alcohol use Patient found altered at home, had dark blood around him, has history of upper GI bleed had EGD done in June( EGD: Grade 1 esophageal varices, gastritis, 1+ gastric fundic varices), positive for esophageal varices, patient has history of liver cirrhosis secondary to alcohol use. Patient on diuretics spironolactone and furosemide at home Plan: -Continue octreotide gtt. -Protonix 40 IV twice daily -IV ceftriaxone for SBP prophylaxis -Bleeding precautions -Monitor H&H every 6 hours -Patient was transfused 1 unit PRBC in ED -GI consulted, appreciate recommendations -Fluid restriction 1500 cc, monitor daily PT PTT INR #Hyperkalemia #High anion gap metabolic acidosis, compensated respiratory alkalosis Potassium 6.0 on presentation, was given regular insulin 5 units x 1, Kayexalate, albuterol treatment calcium gluconate in ED. Albumin corrected anion gap 20.4, delta delta ratio 0.82, pure high anion gap metabolic acidosis. Patient on iron pills, ? Starvation ketoacidosis Plan: -Repeat potassium and renal panel -Patient on LR 75 cc/h -Monitor renal panel, potassium in a.m. #Leukocytosis possibly reactive, no fever or other signs of infection -Follow CBC in a.m. #Asthma/COPD Patient on leave albuterol at home Plan: -DuoNebs as needed DVT prophylaxis: SCD GI prophylaxis: IV Protonix twice daily Diet: Low-sodium diet, n.p.o. after midnight Lines: Peripheral IV Code status: Full code Case discussed with Attending Dr. Horne. Shlomo Mathews PGY1 Internal medicine Disclaimer: This note was dictated by speech recognition. Minor errors in tea and spice supervisor may be present due to voice recognition software. Attending Provider Attestation/Addendum I have examined the patient, reviewed labs and imaging findings, discussed the case with the resident(s), and reviewed entered orders. I agree with the plan of care as outlined in this note, with these additional summaries/recommendations: Patient is a 74-year-old male with a medical history of liver cirrhosis secondary to alcohol use, history of esophageal and gastric varices, BRETT, BPH, COPD, anxiety, and ?Substance abuse who presents to [facility] emergency department on 08/28/2024 with chief complaint of altered mental status. Patient was apparently found altered by caregiver and noted dark blood scattered around the floor. Patient diagnosed with altered mental status and GI bleed and thus hospitalist team was consulted for continuation of care. # Acute encephalopathy On admission only alert to self. Baseline mental status is ANO x 3. Differential is broad but most likely secondary to hepatic encephalopathy Metabolic: Ammonia 54, order VBG, TSH, vitamin B12/thiamine Oxygen: Keep O2 sat greater than 92% Infectious: Urinalysis relatively within normal limits. Chest x-ray with no evidence of pneumonia. Leukocytosis is present although low suspicion for infection at this time. Structural: Pending CT head Toxic: order Utox, alcohol level WNL on admission and low suspicion for withdrawal Other: Does not appear to have urinary retention/constipation at this time Standard delirium precautions Plan: Start lactulose and titrate to 2-3 bowel movements a day. Start rifaximin. Monitor for improvement. Start thiamine and folate #GI Bleed Likely Upper, unable to quantify amount of blood loss at this time as patient is altered Unclear if patient was having hematic emesis or melena but given history likely upper GI bleed 07/11/24 EGD: Grade 1 esophageal varices, gastritis, 1+ gastric fundic varices Rockall score for upper GI bleed: 3 points indicating 11% mortality prior to endoscopic GI consulted, recommendations appreciated N.p.o., 2 large-bore IVs, IVF resuscitation to maintain MAP greater than 65, type and screen, trend H&H, hold NSAIDs/steroids/aspirin/anticoagulation Transfuse for hemoglobin less than 7, platelet less than 50, INR greater than 1.5 Start pantoprazole 40 mg IV twice daily Start octreotide gtt. start Rocephin 1 g daily x 7 days (cirrhosis) Plan: PRBCs ordered by ED. Stat repeat H&H ordered & Continue to trend H&H. Start IVF. We will follow-up with gastroenterology for recommendations. #Hyperkalemia DDx: Unknown etiology at this time. Possibly secondary to excessive K intake versus cirrhosis versus academia Potassium on admission: 6.0 In the ED treated with calcium gluconate, IV insulin plus dextrose, albuterol breathing treatment, and Kayexalate 30 g x 1. Plan: Stat repeat potassium ordered. We will continue temporizing measures as needed plus Kayexalate. #Anion Gap Metabolic Acidosis DDx: Possibly multifactorial secondary to starvation ketoacidosis plus iron pills On admission: Bicarb 13.8. Plan: Order ABG and repeat chemistry panel. No need for bicarb supplementation at this time but will monitor closely. # Decompensated cirrhosis Meld?NA score: 20 points indicating 19.6% risk of estimated 3-month mortality Child Hernandez score for cirrhosis mortality: 11 points indicating child class C with life expectancy 1 to 3 years. Daily LFT, platelet, INR, sodium Volume Management: Pending home medication review conciliation. Appears to take furosemide and spironolactone. Ascites: Minimal, no intervention needed at this time. Plan: No more than 2 g Tylenol per day & low-sodium diet. Repeat labs in AM and outpatient follow-up. Significant hypoalbuminemia present and we will hold giving albumin for now to avoid hypervolemia. #Leukocytosis On admission WBC count 18.4. Plan: Elevated WBC count most likely reactive. Repeat hematology panel in AM. Patient on IV Rocephin for GI bleed. Dr. Horne
[2024-08-28] MEDS: ONDANSETRON INJ 2 MG/ML INJ 2 ML 4 MG IV (21:17)
[2024-08-28] MEDS: LORazepam 2 MG/ML VIAL IVP ×2 (21:17→22:06)
[2024-08-28] MEDS: PANTOPRAZOLE INJ 40 MG VIAL IVP (21:18)
[2024-08-28 21:19] LABS: Collection Type, Urine Catheter
[2024-08-28 21:27] LABS: Bilirubin,Urine Negative (Negative); Blood,Urine Negative (Negative); Clarity,Urine Turbid (Clear/Hazy); Color,Urine Yellow (Lt Yel-Yel); Glucose, Urine Negative (Negative); Hyaline Casts,Urine < 1 /hpf (0-1); Ketones,Urine 1+ (Negative); Leukocyte Esterase,Urine Negative (Negative); Nitrite,Urine Negative (Negative); Protein,Urine Trace (Neg - Trace); RBC,Urine 5 /hpf (0-3); Specific Gravity,Urine 1.027 (1.001-1.035); Squamous Epithelial Cell,Urine 1 /hpf (0-5); Urobilinogen,Urine Negative mg/dL (0.0-1.0); WBC,Urine 4 /hpf (0-5)
[2024-08-28 21:30] LABS: Hematocrit 22.6 % (41.0-53.0)
[2024-08-28 21:33] LABS: Amphetamine/Methamp Scrn,U Negative (Negative); Barbiturate Screen,Urine Negative (Negative); Benzodiazepines Screen,Urine Negative (Negative); Benzoylecgonine Screen, Ur Negative (Negative); Fentanyl Screen,Urine Negative (Negative); Opiate Screen,Urine Negative (Negative); THC Screen,Urine Negative (Negative)
[2024-08-28 21:34] LABS: Hemoglobin 7.2 g/dL (13.5-16.0)
[2024-08-28] MEDS: rifaximin 550 MG TABLET PO (21:35)
[2024-08-28] MEDS: THIAMINE 100 MG TABLET PO (21:35)
[2024-08-28] MEDS: RINGERS LACTATED 1000 ML 1,000 ML 75 ML IV (21:36)
[2024-08-28 21:45] LABS: Anion Gap 12 (7-16); BUN/Creatinine Ratio 44 Ratio (12-20); Blood Urea Nitrogen 40 mg/dL (9-23); Calcium 8.3 mg/dL (8.3-10.6); Calcium (Corrected) 9.9 mg/dL (8.5-10.1); Carbon Dioxide 17.6 mMol/L (20.0-31.0); Chloride 111 mMol/L (98-107); Creatinine (Component) 0.9 mg/dL (0.6-1.3); Estimated Creatinine Clearance 72.1 mL/min (>60); Glucose 138 mg/dL (74-106); Osmolality,Calculated 292 (275-295); Phosphorous 3.5 mg/dL (2.4-5.1); Potassium 5.6 mMol/L (3.4-5.1); Sodium 141 mMol/L (136-145); eGFR > 60 See Note
--- NOTE | 2024-08-28 22:22 | PD.IMCONS ---
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/[employer] from the emergency room for a hemoglobin hematocrit of 7.6 and 22.6 and platelet count of 94,000 and gross melanotic stool on rectal digital examination Grossly Hemoccult positive Patient has altered mental status with ammonia level 54 and is encephalopathic no history is obtainable from him He does have a alcohol induced chronic liver disease and had had GI bleeds in the past cc:: cc: Giorgi Horne MD Review of Systems Review of Systems ROS Unobtainable: unobtainable due to medical condition Meds Home Medications and Allergies Home Medications ?Medication ?Instructions ?Recorded ?Confirmed ?Type alprazolam 0.5 mg tablet 0.5 mg PO BID PRN Anxiety 06/25/23 11/22/23 History hydrocodone 10 mg-acetaminophen 1 tab PO Q6H PRN Pain 06/25/23 11/22/23 History 325 mg tablet tamsulosin 0.4 mg capsule 0.4 mg PO DAILY 06/25/23 03/19/24 History fluticasone fur. 200 mcg-umeclid 1 inh inhalation QDAY 07/11/24 07/11/24 History 62.5 mcg-vilant 25 mcg inhalat.powder (Trelegy Ellipta) Allergies Allergy/AdvReac Type Severity Reaction Status Date / Time No Known Allergies Allergy Unknown Verified 07/10/24 14:08 Exam Vital Signs Temp Pulse Resp BP Pulse Ox O2 Del Method O2 Flow Rate 98.5 F 121 H 21 H 146/72 H 95 Oxy Mask 15 08/28/24 13:43 08/28/24 21:56 08/28/24 21:56 08/28/24 21:01 08/28/24 21:01 08/28/24 13:43 08/28/24 13:43 Constitutional Comments: Altered mental status arousable Routine Respiratory Exam Comments: Scattered rhonchi Routine Abdominal Exam Comments: Soft nontender Results Labs 08/29/24 16:36 08/29/24 05:20 Labs: Short CBC 08/28/24 08/28/24 Range/Units 16:50 21:15 WBC 18.4 H (3.8-10.6) Thou/mm3 Hgb 7.6 L 7.2 L (13.5-16.0) g/dL Hct 24.0 L 22.6 L (41.0-53.0) % Plt Count 94 L D (140-440) Thou/mm3 BMP 08/28/24 08/28/24 16:25 21:15 Sodium 140 141 Potassium 6.0 H 5.6 H Chloride 111 H 111 H Carbon Dioxide 13.8 L* 17.6 L BUN 31 H 40 H Creatinine 0.8 0.9 Glucose 75 138 H D Calcium 7.6 L 8.3 Cardiac Enzymes 08/28/24 Range/Units 16:25 Troponin I < 0.020 (0.0-0.045) ng/mL Liver Function 08/28/24 08/28/24 Range/Units 16:25 21:15 Total Bilirubin 4.9 H (0.3-1.2) mg/dL AST 59 H (0-34) U/L ALT 28 (10-49) U/L Alkaline Phosphatase 185 H (46-116) U/L Albumin 1.9 L 2.0 L (3.4-4.8) gm/dL Urine 08/28/24 Range/Units 20:56 Urine Color Yellow (Lt Yel-Yel) Urine Clarity Turbid A (Clear/Hazy) Urine pH 6.0 (5.0-7.0) Ur Specific [place] 1.027 (1.001-1.035) Urine Protein Trace (Neg - Trace) Urine Glucose (UA) Negative (Negative) Assessment and Plan Additional Assessment & Plan Additional Plan: # Acute upper GI bleed in the form of melena # Acute posthemorrhagic anemia # Acute hepatic encephalopathy # Chronic liver disease with thrombocytopenia abnormal liver function test and coagulopathy secondary to alcohol Plan Agree with the blood transfusion give patient 2 units of PRBC Octreotide infusion Lactulose and Xifaxan Consent will be obtained from the sister who makes that decision for fiberoptic esophagogastroduodenoscopy with possible therapeutic intervention under intravenous moderate sedation Prognosis guarded Thank you for the opportunity to participate in the care of this patient
[2024-08-28 22:47] LABS: Base Excess -6 (-3-3); HCO3 18 mEq/L (20-26); Inspired Oxygen, FIO2 21 %; O2 Saturation 94 % (91-98); PCO2 29 mmHg (32.0-48.0); PO2 69 mmHg (83-108); pH, Arterial 7.41 (7.35-7.45)
[2024-08-28 22:51] LABS: Allen Test Not Performed; Puncture Site Left Radial
[2024-08-29] VITALS (17 sets, daily range): BP systolic 98–143; BP diastolic 54–93; PULSE 84–122; RESP 16–96; TEMP 36–36.9; O2SAT 91–99; BMI 25.4; BMI 25.3
--- NOTE | 2024-08-29 00:04 | PC.NURSE ---
REPORT CALLED TO MEL GARLAND. ALL QUESTIONS ASKED AND ANSWERED. PATIENT TRANSFERRED TO FLOOR WITH IVF INFUSING WITHOUT DIFFICULTY. PATIENT REMAINS ON ROOM AIR. NO DISTRESS NOTED AT TRANSFER.
[2024-08-29 05:46] LABS: Basophils % (Auto) 0 % (0-2.5); Eosinophils % (Auto) 0 % (0-10); Hematocrit 23.5 % (41.0-53.0); Immature Granulocytes % (Auto) 1 % (0-0); Immature Granulocytes Auto 0.08 Thou/mm3 (0.00-0.00); Lymphocytes # (Auto) 1.6 Thou/mm3 (1.0-4.8); Lymphocytes % (Auto) 13 % (10-50); Mean Corpuscular HGB Conc 33.2 g/dl (31.0-37.0); Mean Corpuscular Hemoglobin 31.3 pg (25.0-35.0); Mean Corpuscular Volume 94 fL (80-100); Monocytes # (Auto) 1.1 Thou/mm3 (0.0-0.8); Monocytes % (Auto) 9 % (0-12); Neutrophils # (Auto) 9.6 Thou/mm3 (1.8-7.7); Neutrophils % (Auto) 77 % (37-80); Nucleated Red Blood Cell % 0 /100 WBC (0); RDW Standard Deviation 66.1 fL (35.1-43.9); Red Blood Count 2.49 Miln/mm3 (4.50-5.90); White Blood Count 12.4 Thou/mm3 (3.8-10.6)
[2024-08-29 05:48] LABS: Hemoglobin 7.8 g/dL (13.5-16.0); Platelet Count 62 Thou/mm3 (140-440)
[2024-08-29 05:49] LABS: Slide Review Platelets confirmed
[2024-08-29 05:57] LABS: INR 2.1 (0.9-1.3); Partial Thromboplastin Time 37.9 Seconds (22.0-36.0); Prothrombin Time 21.6 Seconds (9.0-12.2)
[2024-08-29 06:06] LABS: Vitamin B12 1310 pg/mL (211-911)
[2024-08-29 06:47] LABS: Alanine Aminotransferase 26 U/L (10-49); Albumin, Serum 1.9 gm/dL (3.4-4.8); Albumin/Globulin Ratio 0.5 (1.2-2.2); Alkaline Phosphatase 160 U/L (46-116); Anion Gap 5 (7-16); Aspartate Amino Transferase 64 U/L (0-34); BUN/Creatinine Ratio 48 Ratio (12-20); Bilirubin,Total 3.8 mg/dL (0.3-1.2); Blood Urea Nitrogen 38 mg/dL (9-23); Calcium 7.8 mg/dL (8.3-10.6); Calcium (Corrected) 9.5 mg/dL (8.5-10.1); Carbon Dioxide 22.9 mMol/L (20.0-31.0); Cardiac Risk Estimate 6.6 RATIO (4.0-6.7); Chloride 113 mMol/L (98-107); Cholesterol 66 mg/dL (132-200); Creatinine (Component) 0.8 mg/dL (0.6-1.3); Estimated Creatinine Clearance 81.1 mL/min (>60); Free T4 (Free Thyroxine) 0.84 ng/dL (0.89-1.76); Globulin 3.6 gm/dL (2.3-3.5); Glucose 108 mg/dL (74-106); HDL Cholesterol 10 mg/dL (40-60); LDL Cholesterol,Calculated 46 mg/dL (0-130); Magnesium 1.9 mg/dL (1.6-2.6); Osmolality,Calculated 291 (275-295); Phosphorous 2.8 mg/dL (2.4-5.1); Potassium 4.9 mMol/L (3.4-5.1); Sodium 141 mMol/L (136-145); Thyroid Stimulating Hormone 0.39 uIU/mL (0.55-4.78); Total Protein 5.5 gm/dL (5.7-8.2); Triglycerides 51 mg/dL (30-150); eGFR > 60 See Note
--- NOTE | 2024-08-29 09:27 | PC.SS ---
Follow up note: Dr. Hall's recommendations are pending. Pt is NPO.
[2024-08-29] MEDS: cefTRIAXone/D5w 1gm IV premix 50 ML IV (10:07)
--- NOTE | 2024-08-29 10:14 | PC.NURSE ---
Addendum entered by Mariann Delgadillo RN 08/29/24 19:42: not responding only moaning with eyes close Original Note: Call rapid on pt. could get not make him get up and open his eyes, pt. is only moaning. Vitals are in normal limits BP 118/67 bp, 98.1 temp, Oc 93 on RA. did sternal rub not opening eyes.
[2024-08-29 10:15] LABS: Base Excess 2 (-3-3); HCO3 25 mEq/L (20-26); Inspired Oxygen, FIO2 21 %; O2 Saturation 94 % (91-98); PCO2 33 mmHg (32.0-48.0); PO2 63 mmHg (83-108)
[2024-08-29 10:19] LABS: Allen Test Performed/OK; Puncture Site Right Radial
[2024-08-29] MEDS: LACTULOSE SYRUP 20 GM/30 ML UDC PR (10:23)
[2024-08-29] MEDS: PANTOPRAZOLE INJ 40 MG VIAL IVP ×2 (10:32→20:10)
[2024-08-29 10:53] LABS: Misc Send Out* See Sep Rpt
--- NOTE | 2024-08-29 11:44 | ESPR_ITS ---
<Statement entered by Esteban Mccallum MD - 09/05/24 09:15> I reviewed above note and agree with findings and plans. I have also personally examined the patient with medicine team and went over assessment and plan with medical team including sales intern and resident physician. <Statement entered by Checo Ignacio MD - 08/30/24 17:28> I discussed with and supervised the sales intern physician involved in the care of this patient. Patient assessment and plan was discussed with entire medicine team, including my attending. I agree with the assessment and plan as documented by sales intern doctor. Patient care was discussed with my attending physician Dr. Xena Ignacio, PGY-2 Documentation for date of: 08/29/24 Subjective Subjective Interval history: Patient was seen and examined at bedside this AM. No acute exents overnight. Patient currently altered and A and O x 0 Patient currently has melena colored stools and his rectal tube drainage bag. Ordered repeat H&H This a.m. rapid response was called for patient being somnolent and unresponsive to sternal rub. Started patient on lactulose 200 g [place] 3 times daily. GI, Dr. Hall consulted and closely following the case. Patient currently n.p.o. for likely EGD with banding later tonight. On admission patient's Hb 7.6 and he received 2 units PRBC. Post H&H 7.4 Exam Vital Signs Temp Pulse Resp BP Pulse Ox O2 Del Method O2 Flow Rate 98.2 F 84 16 99/54 L 94 L Room Air 15 08/29/24 08:00 08/29/24 08:00 08/29/24 08:00 08/29/24 08:00 08/29/24 08:00 08/29/24 08:00 08/28/24 13:43 Narrative Exam Constitutional Alert, oriented x 0 and Somnolent. Elderly male HEENT Pupils reactive to light, patent nares and trachea midline Respiratory Chest normal on inspection and clear auscultation bilaterally Cardiovascular S1 and S2 audible, RRR. No murmurs carotid bruit. No gross JVD. Abdominal Soft and non tender to palpation in all quadrants. BS + Genitourinary No bladder tenderness, no flank pain. Normal to palpation Musculoskeletal Extremities tone within normal limits. No LE edema. Neurological Patient's pupil reactive to light and he is protecting his airway Skin Warm, dry and intact. No apparent lesions. Objective Labs 08/29/24 05:20 08/29/24 05:20 Labs: Laboratory Results - last 24 hr 08/28/24 08/28/24 08/28/24 16:25 16:50 18:41 WBC 18.4 H RBC 2.42 L Hgb 7.6 L Hct 24.0 L MCV 99 MCH 31.4 MCHC 31.7 RDW Std Deviation 72.3 H Plt Count 94 L D Neut % (Auto) 87 H Lymph % (Auto) 7 L [place] % (Auto) 6 Eos % (Auto) 0 Baso % (Auto) 0 Neut # (Auto) 16.0 H Lymph # (Auto) 1.3 [place] # (Auto) 1.0 H Eos # (Auto) 0.0 Baso # (Auto) 0.0 Immature Gran # (Auto) 0.10 H Absolute Nucleated RBC 0.02 H Immature Gran % 1 H Nucleated RBC % 0 PT INR APTT Puncture Site ABG pH ABG pCO2 ABG pO2 ABG HCO3 ABG O2 Saturation ABG Base Excess FiO2 Sodium 140 Potassium 6.0 H Chloride 111 H Carbon Dioxide 13.8 L* Anion Gap 15 BUN 31 H Creatinine 0.8 Estim Creat Clear Calc 81.1 eGFR > 60 BUN/Creatinine Ratio [address] Glucose [address] Glu mg/dL Hemoglobin A1c Calculated Osmolality 284 Calcium 7.6 L Corrected Calcium 9.3 Phosphorus 3.9 Magnesium 1.7 Total Bilirubin 4.9 H AST 59 H ALT 28 Alkaline Phosphatase 185 H Ammonia 54 H Troponin I < 0.020 B-Natriuretic Peptide 30 Total Protein 5.7 Albumin 1.9 L Globulin 3.8 H Albumin/Globulin Ratio 0.5 L Triglycerides Cholesterol LDL Cholesterol, Calc HDL Cholesterol Cholesterol/HDL Ratio Lipase 24 Vitamin B12 Folate TSH Free T4 Ur Collection Type Urine Color Urine Clarity Urine pH Ur Specific [place] Urine Protein Urine Glucose (UA) Urine Ketones Urine Blood Urine Nitrite Urine Bilirubin Urine Urobilinogen (Auto) Ur Leukocyte Esterase Urine RBC Urine WBC Ur Squamous Epith Cells Urine Bacteria Hyaline Casts Urine Opiates Screen Urine Fentanyl Screen Ur Barbiturates Screen U Amphetamin/Meth Scrn U Benzodiazepines Scrn U Cocaine Metab Screen U Marijuana (THC) Screen Ethyl Alcohol < 3.0 Misc Test Result Blood Type O Positive Antibody Screen POSITIVE Antibody Identification Anti-E Crossmatch See Detail Blood Bank Wristband ID Yes 08/28/24 08/28/24 08/28/24 20:40 20:56 21:15 WBC RBC Hgb 7.2 L Hct 22.6 L MCV MCH MCHC RDW Std Deviation Plt Count Neut % (Auto) Lymph % (Auto) [place] % (Auto) Eos % (Auto) Baso % (Auto) Neut # (Auto) Lymph # (Auto) [place] # (Auto) Eos # (Auto) Baso # (Auto) Immature Gran # (Auto) Absolute Nucleated RBC Immature Gran % Nucleated RBC % PT INR APTT Puncture Site ABG pH ABG pCO2 ABG pO2 ABG HCO3 ABG O2 Saturation ABG Base Excess FiO2 Sodium 141 Potassium 5.6 H Chloride 111 H Carbon Dioxide 17.6 L Anion Gap 12 BUN 40 H Creatinine 0.9 Estim Creat Clear Calc 72.1 eGFR > 60 BUN/Creatinine Ratio 44 H Glucose [address] Glu mg/dL Hemoglobin A1c Calculated Osmolality 292 Calcium 8.3 Corrected Calcium 9.9 Phosphorus 3.5 Magnesium Total Bilirubin AST ALT Alkaline Phosphatase Ammonia Troponin I B-Natriuretic Peptide Total Protein Albumin 2.0 L Globulin Albumin/Globulin Ratio Triglycerides Cholesterol LDL Cholesterol, Calc HDL Cholesterol Cholesterol/HDL Ratio Lipase Vitamin B12 Folate TSH Free T4 Ur Collection Type Catheter Urine Color Yellow Urine Clarity Turbid A Urine pH 6.0 Ur Specific [place] 1.027 Urine Protein Trace Urine Glucose (UA) Negative Urine Ketones 1+ A Urine Blood Negative Urine Nitrite Negative Urine Bilirubin Negative Urine Urobilinogen (Auto) Negative Ur Leukocyte Esterase Negative Urine RBC 5 H Urine WBC 4 Ur Squamous Epith Cells 1 Urine Bacteria None Hyaline Casts < 1 Urine Opiates Screen Negative Urine Fentanyl Screen Negative Ur Barbiturates Screen Negative U Amphetamin/Meth Scrn Negative U Benzodiazepines Scrn Negative U Cocaine Metab Screen Negative U Marijuana (THC) Screen Negative Ethyl Alcohol Misc Test Result Blood Type Antibody Screen Antibody Identification Crossmatch Blood Bank Wristband ID 08/28/24 08/29/24 08/29/24 22:40 05:20 10:05 WBC 12.4 H D RBC 2.49 L Hgb 7.8 L Hct 23.5 L MCV 94 MCH 31.3 MCHC 33.2 RDW Std Deviation 66.1 H Plt Count 62 L D Neut % (Auto) 77 Lymph % (Auto) 13 [place] % (Auto) 9 Eos % (Auto) 0 Baso % (Auto) 0 Neut # (Auto) 9.6 H Lymph # (Auto) 1.6 [place] # (Auto) 1.1 H Eos # (Auto) 0.0 Baso # (Auto) 0.0 Immature Gran # (Auto) 0.08 H Absolute Nucleated RBC 0.00 Immature Gran % 1 H Nucleated RBC % 0 PT 21.6 H INR 2.1 H APTT 37.9 H Puncture Site Left Radial Right Radial ABG pH 7.41 7.50 H ABG pCO2 29 L 33 ABG pO2 69 L 63 L ABG HCO3 18 L 25 ABG O2 Saturation 94 94 ABG Base Excess -6 L 2 FiO2 21 21 Sodium 141 Potassium 4.9 D Chloride 113 H Carbon Dioxide 22.9 Anion Gap 5 L BUN 38 H Creatinine 0.8 Estim Creat Clear Calc 81.1 eGFR > 60 BUN/Creatinine Ratio 48 H Glucose [address] Glu mg/dL Cancelled Hemoglobin A1c Cancelled Calculated Osmolality 291 Calcium 7.8 L Corrected Calcium 9.5 Phosphorus 2.8 Magnesium 1.9 Total Bilirubin 3.8 H D AST 64 H ALT 26 Alkaline Phosphatase 160 H D Ammonia Troponin I B-Natriuretic Peptide Total Protein 5.5 L Albumin 1.9 L Globulin 3.6 H Albumin/Globulin Ratio 0.5 L Triglycerides 51 Cholesterol 66 L LDL Cholesterol, Calc 46 HDL Cholesterol 10 L Cholesterol/HDL Ratio 6.6 Lipase Vitamin B12 1310 H Folate 9.80 TSH 0.39 L Free T4 0.84 L Ur Collection Type Urine Color Urine Clarity Urine pH Ur Specific [place] Urine Protein Urine Glucose (UA) Urine Ketones Urine Blood Urine Nitrite Urine Bilirubin Urine Urobilinogen (Auto) Ur Leukocyte Esterase Urine RBC Urine WBC Ur Squamous Epith Cells Urine Bacteria Hyaline Casts Urine Opiates Screen Urine Fentanyl Screen Ur Barbiturates Screen U Amphetamin/Meth Scrn U Benzodiazepines Scrn U Cocaine Metab Screen U Marijuana (THC) Screen Ethyl Alcohol Misc Test Result Platelets confirmed Blood Type Antibody Screen Antibody Identification Crossmatch Blood Bank Wristband ID ABG Interpretation ABG results: 08/28/24 08/29/24 22:40 10:05 ABG pH 7.41 7.50 H ABG pCO2 29 L 33 ABG pO2 69 L 63 L ABG HCO3 18 L 25 ABG O2 Saturation 94 94 ABG Base Excess -6 L 2 Quality Measures Quality Measures VTE prophylaxis Advance care planning discussed with:: other Assessment & Plan Assessment Current Active Medications: Generic Name Dose Route Start Last Admin Trade Name Maris PRN Reason Stop Dose Admin Acetaminophen 325 mg 08/28/24 20:28 Acetaminophen 325 Mg Tablet PO 09/27/24 20:27 Q6H PRN PAIN SCALE 1-3 (mild Albuterol/Ipratropium 3 ml 08/28/24 20:24 Albuterol/Ipratropium (Duoneb) Rt Janessa 3 Ml Nebu INH 09/27/24 22:59 Q4HRRT PRN Wheeze Folic Acid 1 mg 08/29/24 09:00 08/29/24 10:19 Folic Acid 1 Mg Tablet PO 09/28/24 08:59 Not Given QDAY JERSON Octreotide Acetate 1,000 mcg/ 102 mls @ 5.1 mls/hr 08/28/24 17:47 08/28/24 18:48 Sodium Chloride IV 08/29/24 13:46 50 mcg/hr .Q20H ONE 5.1 mls/hr Administration Protocol 50 MCG/HR Ceftriaxone Sodium/Dextrose 50 mls @ 100 mls/hr 08/29/24 09:00 08/29/24 10:07 Rocephin/D5w 1gm Iv Premix IV 09/05/24 08:59 100 mls/hr QDAY JERSON Administration Octreotide Acetate 1,000 mcg/ 102 mls @ 5.1 mls/hr 08/29/24 13:47 Sodium Chloride IV 09/02/24 17:46 .Q20H JERSON Protocol 50 MCG/HR Lactulose 20 gm 08/29/24 14:00 Lactulose Syrup 20 Gm/30 Ml Udc [place] 09/28/24 13:59 TID JERSON Protocol Midodrine 5 mg 08/30/24 08:25 Midodrine 5 Mg Tablet PO 09/29/24 08:24 TID JERSON Pantoprazole Sodium 40 mg 08/28/24 21:00 08/29/24 10:32 Pantoprazole Inj 40 Mg Vial IVP 09/27/24 20:59 40 mg BID JERSON Administration Rifaximin 550 mg 08/28/24 21:00 08/29/24 10:19 Rifaximin 550 Mg Tablet PO 09/04/24 20:59 Not Given BID JERSON Sodium Chloride 5 ml 08/28/24 17:29 08/28/24 18:47 Sodium Chloride Rt Janessa 0.9% 3 Ml Nebu INH 09/27/24 17:28 3 ml PRN PRN Administration SOLN Thiamine HCl 100 mg 08/28/24 20:45 08/29/24 10:19 Thiamine 100 Mg Tablet PO 09/27/24 20:44 Not Given QDAY JERSON Plan Mr. Stack is a 74-year-old male with past medical history of liver cirrhosis secondary to alcohol use disorder, esophageal varices, ?Asthma/COPD, GERD, anxiety and BPH who was BIBA to [facility] emergency department from home on 08/28/2024 with a chief complaint of altered mental status. Patient will be admitted for workup and management of hepatic encephalopathy and acute blood loss anemia. 1. Altered mental status secondary to acute metabolic encephalopathy At baseline patient is conversational and oriented x 3. On admission patient was altered and ANO x 0. On exam patient's pupils reactive to light nonverbal and unresponsive to sternal rub. DDx: Hepatic encephalopathy, medication side effect, TIA CT brain was negative for hemorrhage, mass effect or midline shift Ammonia 57 Plan: ? Aspiration precautions ? Head of bed elevation ? Neurochecks every 4 hourly ? Lactulose 200 g as needed 3 times daily for hepatic encephalopathy ? Continue thiamine p.o. 2. Acute blood loss anemia secondary to GI bleed 3. Likely upper GI bleed secondary to esophageal varices 4. Decompensated alcoholic cirrhosis with coagulopathy and thrombocytopenia 5. Hyperbilirubinemia Patient was found unconscious in a pool of coffee-ground emesis On admission patient's Hb 7.6 and he received 2 units PRBC. Post H&H 7.4 T.Bili 3.8 Last EGD completed on 07/11/2024 findings include: Grade 1 esophageal varices not large enough for band ligation. Gastritis with hemorrhage characterized by congestion. 1+ gastric fundus varices. Meld?NA score 20 points. 3-4% 90-day mortality. Child?Hernandez class C. 12 points. Life expectancy 1-3 years. Abdominal surgery mortality 82% Plan: ? N.p.o. ? Repeat H&H. Transfuse if Hb <7 ? Protonix 40 Mg IV twice daily ? Continue octreotide infusion at 50 mcg/hour - Patient on ceftriaxone 1 g IV daily for SBP prophylaxis ? Possible EGD tonight ? GI, Dr. Hall consulted and closely following the case. Appreciate recommendations. 6. Asthma 7. COPD Home medication Trelegy inhaler Plan: ? DuoNebs as needed 8. Low TSH 9. Low T4 TSH 0.39, T4 0.84 Likely normal based on patient age Health maintenance: Disposition: [place] lactulose, IV octreotide. Possible EGD tonight. GI recs Diet: N.p.o. Lines: pIVs GI Prophylaxis: Pantoprazole 40 IV twice daily Thrombo Prophylaxis: SCDs Code status: FULL CODE Plan of care discussed with Attending Dr. Mccallum and PGY2 Dr. Sandee Green MD PGY 1 Attending Provider Attestation/Addendum I reviewed labs, imaging, EKG, home medications and prior available records. Face to face evaluation was performed by me. I have personally examined the patient and discussed assessment and plan with the IM team. I reviewed the resident note and agree with the plan with exceptions as below. SBP Upper GI bleed Alcoholic liver cirrhosis Acute anemia Thrombocytopenia Elevated INR Patient developed fevers. Concern for SBP. Started IV ceftriaxone. N.p.o. for EGD IV Protonix and IV octreotide Continue alcohol abstinence Monitor platelet level. Monitor CBC. Monitor for bleeding
[2024-08-29] MEDS: LACTULOSE SYRUP 10 GM/15 ML 200 GM PR ×2 (11:53→15:37)
[2024-08-29] MEDS: OCTREOTIDE ACET INJ 1,000 MCG in SODIUM CHLORIDE 0.9% 100 ML 5.1 MCG IV (14:57)
--- NOTE | 2024-08-29 15:35 | PC.NURSE ---
Used the rectal tube to admin. the Lactulose and hold it in. MD Green was at bed side and aware. to hold lactulose kept rectal tube in for an Hour then DC.
[2024-08-29 17:03] LABS: Hematocrit 26.7 % (41.0-53.0)
--- NOTE | 2024-08-29 20:20 | PC.NURSE ---
Patient was Transferred to Telemetry via bed with Patient belongings, Report given to MEL Salcedo.
[2024-08-29] MEDS: ALBUTEROL/IPRATROPIUM (Duoneb) RT SOL 3 ML NEBU INH (23:00)
[2024-08-30] VITALS (9 sets, daily range): BP systolic 111–144; BP diastolic 71–96; PULSE 93–119; RESP 19–23; TEMP 36.2–37.2; O2SAT 92–98
[2024-08-30 07:05] LABS: INR 1.9 (0.9-1.3); Partial Thromboplastin Time 37.1 Seconds (22.0-36.0); Prothrombin Time 20.3 Seconds (9.0-12.2)
[2024-08-30 08:31] LABS: Alanine Aminotransferase 27 U/L (10-49); Albumin, Serum 1.9 gm/dL (3.4-4.8); Albumin/Globulin Ratio 0.5 (1.2-2.2); Alkaline Phosphatase 157 U/L (46-116); Anion Gap 5 (7-16); Aspartate Amino Transferase 78 U/L (0-34); BUN/Creatinine Ratio 48 Ratio (12-20); Bilirubin,Total 4.2 mg/dL (0.3-1.2); Blood Urea Nitrogen 29 mg/dL (9-23); Calcium 7.5 mg/dL (8.3-10.6); Calcium (Corrected) 9.2 mg/dL (8.5-10.1); Carbon Dioxide 28.3 mMol/L (20.0-31.0); Chloride 114 mMol/L (98-107); Creatinine (Component) 0.6 mg/dL (0.6-1.3); Estimated Creatinine Clearance 108.1 mL/min (>60); Globulin 3.7 gm/dL (2.3-3.5); Glucose 98 mg/dL (74-106); Magnesium 1.9 mg/dL (1.6-2.6); Osmolality,Calculated 298 (275-295); Phosphorous 2.2 mg/dL (2.4-5.1); Potassium 3.4 mMol/L (3.4-5.1); Sodium 147 mMol/L (136-145); Total Protein 5.6 gm/dL (5.7-8.2); eGFR > 60 See Note
[2024-08-30 08:32] LABS: Basophils % (Auto) 0 % (0-2.5); Eosinophils # (Auto) 0.1 Thou/mm3 (0.0-0.5); Eosinophils % (Auto) 2 % (0-10); Hematocrit 24.5 % (41.0-53.0); Immature Granulocytes % (Auto) 0 % (0-0); Immature Granulocytes Auto 0.03 Thou/mm3 (0.00-0.00); Lymphocytes # (Auto) 0.7 Thou/mm3 (1.0-4.8); Lymphocytes % (Auto) 11 % (10-50); Mean Corpuscular HGB Conc 33.1 g/dl (31.0-37.0); Mean Corpuscular Hemoglobin 31.4 pg (25.0-35.0); Mean Corpuscular Volume 95 fL (80-100); Monocytes # (Auto) 0.6 Thou/mm3 (0.0-0.8); Monocytes % (Auto) 9 % (0-12); Neutrophils # (Auto) 5.3 Thou/mm3 (1.8-7.7); Neutrophils % (Auto) 78 % (37-80); Nucleated Red Blood Cell % 0 /100 WBC (0); RDW Standard Deviation 66.3 fL (35.1-43.9); Red Blood Count 2.58 Miln/mm3 (4.50-5.90); White Blood Count 6.8 Thou/mm3 (3.8-10.6)
[2024-08-30 09:07] LABS: Hemoglobin 8.1 g/dL (13.5-16.0); Platelet Count 57 Thou/mm3 (140-440)
[2024-08-30] MEDS: PANTOPRAZOLE INJ 40 MG VIAL IVP ×2 (09:50→20:14)
[2024-08-30] MEDS: cefTRIAXone/D5w 1gm IV premix 50 ML IV (09:50)
[2024-08-30] MEDS: DEXTROSE 5%-NS 1,000 ML 100 ML IV (09:50)
[2024-08-30 10:29] LABS: Slide Review Platelets confirmed
--- NOTE | 2024-08-30 13:45 | ESPR_ITS ---
Documentation for date of: 08/30/24 Subjective Subjective Interval history: Patient evaluated Still encephalopathic Hemoglobin hematocrit downward trending at 8.1 and 24.5 Upper endoscopy showed diffuse hypertensive portal gastropathy mucosal oozing of blood and 1+ esophageal varices not large enough for band ligation Octreotide to continue Exam Vital Signs Temp Pulse Resp BP Pulse Ox O2 Del Method O2 Flow Rate 97.8 F 93 19 127/81 98 Nasal Cannula 2 08/30/24 12:00 08/30/24 12:00 08/30/24 12:00 08/30/24 12:00 08/30/24 12:00 08/30/24 12:00 08/30/24 12:00 Objective Labs 08/30/24 07:35 08/30/24 07:35 Labs: Laboratory Results - last 24 hr 08/29/24 08/30/24 08/30/24 16:36 05:34 07:35 WBC 6.8 D RBC 2.58 L Hgb 9.0 L 8.1 L Hct 26.7 L 24.5 L MCV 95 MCH 31.4 MCHC 33.1 RDW Std Deviation 66.3 H Plt Count 57 L Neut % (Auto) 78 Lymph % (Auto) 11 [place] % (Auto) 9 Eos % (Auto) 2 Baso % (Auto) 0 Neut # (Auto) 5.3 Lymph # (Auto) 0.7 L [place] # (Auto) 0.6 Eos # (Auto) 0.1 Baso # (Auto) 0.0 Immature Gran # (Auto) 0.03 H Absolute Nucleated RBC 0.00 Immature Gran % 0 Nucleated RBC % 0 PT 20.3 H INR 1.9 H APTT 37.1 H Sodium 147 H Potassium 3.4 D Chloride 114 H Carbon Dioxide 28.3 Anion Gap 5 L BUN 29 H Creatinine 0.6 Estim Creat Clear Calc 108.1 eGFR > 60 BUN/Creatinine Ratio 48 H Glucose 98 Calculated Osmolality 298 H Calcium 7.5 L Corrected Calcium 9.2 Phosphorus 2.2 L Magnesium 1.9 Total Bilirubin 4.2 H AST 78 H ALT 27 Alkaline Phosphatase 157 H Total Protein 5.6 L Albumin 1.9 L Globulin 3.7 H Albumin/Globulin Ratio 0.5 L Misc Test Result Platelets confirmed Impressions Impression: # Hepatic encephalopathy # Upper GI bleed secondary to mucosal oozing of blood due to advanced portal hypertension Continue octreotide ABG Interpretation ABG results: 08/28/24 08/29/24 22:40 10:05 ABG pH 7.41 7.50 H ABG pCO2 29 L 33 ABG pO2 69 L 63 L ABG HCO3 18 L 25 ABG O2 Saturation 94 94 ABG Base Excess -6 L 2 Assessment & Plan A&P Narrative # Acute upper GI bleed in the form of melena # Acute posthemorrhagic anemia # Acute hepatic encephalopathy # Chronic liver disease with thrombocytopenia abnormal liver function test and coagulopathy secondary to alcohol Plan Agree with the blood transfusion give patient 2 units of PRBC Octreotide infusion Lactulose and Xifaxan Consent will be obtained from the sister who makes that decision for fiberoptic esophagogastroduodenoscopy with possible therapeutic intervention under intravenous moderate sedation Prognosis guarded Thank you for the opportunity to participate in the care of this patient Time Spent With Patient Time: Total time spent is greater than 50% in coordination of care (as documented) at patient's floor/unit and/or counseling patient:
[2024-08-30] MEDS: LACTULOSE SYRUP 10 GM/15 ML 200 GM PR ×2 (15:03→23:12)
[2024-08-30] MEDS: OCTREOTIDE ACET INJ 1,000 MCG in SODIUM CHLORIDE 0.9% 100 ML 5.1 MCG IV (15:35)
--- NOTE | 2024-08-30 19:50 | ESPR_ITS ---
<Statement entered by Esteban Mccallum MD - 09/05/24 13:45> I reviewed above note and agree with findings and plans. I have also personally examined the patient with medicine team and went over assessment and plan with medical team including internal audit consultant and resident physician. Documentation for date of: 08/30/24 Subjective Subjective Interval history: Morning labs indicated a hemoglobin of 8.1. Patient still encephalopathic, underwent EGD which showed diffuse hypertensive portal gastropathy mucosal oozing of blood and 1+ esophageal varices not large enough for band ligation. Recommendation by GI to continue octreotide. We will continue NM lactulose and will increase frequency if possible. Patient does have mild improvement from yesterday, had 3 bowel movements this morning. Exam Vital Signs Temp Pulse Resp BP Pulse Ox O2 Del Method O2 Flow Rate 97.8 F 102 H 19 118/92 H 98 Nasal Cannula 2 08/30/24 16:00 08/30/24 16:00 08/30/24 16:00 08/30/24 16:00 08/30/24 16:00 08/30/24 12:00 08/30/24 12:00 Narrative Exam Constitutional Alert, oriented x 0 and Somnolent. Elderly male HEENT Pupils reactive to light, patent nares and trachea midline Respiratory Chest normal on inspection and clear auscultation bilaterally Cardiovascular S1 and S2 audible, RRR. No murmurs carotid bruit. No gross JVD. Abdominal Soft and non tender to palpation in all quadrants. BS + Genitourinary No bladder tenderness, no flank pain. Normal to palpation Musculoskeletal Extremities tone within normal limits. No LE edema. Neurological Patient's pupil reactive to light and he is protecting his airway Skin Warm, dry and intact. No apparent lesions. Objective Labs 08/30/24 07:35 08/30/24 07:35 Labs: Laboratory Results - last 24 hr 08/30/24 08/30/24 05:34 07:35 WBC 6.8 D RBC 2.58 L Hgb 8.1 L Hct 24.5 L MCV 95 MCH 31.4 MCHC 33.1 RDW Std Deviation 66.3 H Plt Count 57 L Neut % (Auto) 78 Lymph % (Auto) 11 [place] % (Auto) 9 Eos % (Auto) 2 Baso % (Auto) 0 Neut # (Auto) 5.3 Lymph # (Auto) 0.7 L [place] # (Auto) 0.6 Eos # (Auto) 0.1 Baso # (Auto) 0.0 Immature Gran # (Auto) 0.03 H Absolute Nucleated RBC 0.00 Immature Gran % 0 Nucleated RBC % 0 PT 20.3 H INR 1.9 H APTT 37.1 H Sodium 147 H Potassium 3.4 D Chloride 114 H Carbon Dioxide 28.3 Anion Gap 5 L BUN 29 H Creatinine 0.6 Estim Creat Clear Calc 108.1 eGFR > 60 BUN/Creatinine Ratio 48 H Glucose 98 Calculated Osmolality 298 H Calcium 7.5 L Corrected Calcium 9.2 Phosphorus 2.2 L Magnesium 1.9 Total Bilirubin 4.2 H AST 78 H ALT 27 Alkaline Phosphatase 157 H Total Protein 5.6 L Albumin 1.9 L Globulin 3.7 H Albumin/Globulin Ratio 0.5 L Misc Test Result Platelets confirmed ABG Interpretation ABG results: 08/28/24 08/29/24 22:40 10:05 ABG pH 7.41 7.50 H ABG pCO2 29 L 33 ABG pO2 69 L 63 L ABG HCO3 18 L 25 ABG O2 Saturation 94 94 ABG Base Excess -6 L 2 Quality Measures Quality Measures none Advance care planning discussed with:: other Assessment & Plan Assessment Current Active Medications: Generic Name Dose Route Start Last Admin Trade Name Freq PRN Reason Stop Dose Admin Acetaminophen 325 mg 08/28/24 20:28 Acetaminophen 325 Mg Tablet PO 09/27/24 20:27 Q6H PRN PAIN SCALE 1-3 (mild Albuterol/Ipratropium 3 ml 08/28/24 20:24 08/29/24 23:00 Albuterol/Ipratropium (Duoneb) Rt Janessa 3 Ml Nebu INH 09/27/24 22:59 3 ml Q4HRRT PRN Administration Wheeze Amoxicillin/Clavulanate Potassium 1 tab 08/30/24 21:00 Amoxicillin/Pot Clav 875 Tablet PO 09/06/24 20:59 BID JERSON Folic Acid 1 mg 08/29/24 09:00 08/30/24 10:50 Folic Acid 1 Mg Tablet PO 09/28/24 08:59 Not Given QDAY JERSON Ceftriaxone Sodium/Dextrose 50 mls @ 100 mls/hr 08/29/24 09:00 08/30/24 09:50 Rocephin/D5w 1gm Iv Premix IV 09/05/24 08:59 100 mls/hr QDAY JERSON Administration Octreotide Acetate 1,000 mcg/ 102 mls @ 5.1 mls/hr 08/29/24 13:47 08/30/24 15:35 Sodium Chloride IV 09/02/24 17:46 50 mcg/hr .Q20H JERSON 5.1 mls/hr Administration Protocol 50 MCG/HR Lactulose 200 gm 08/29/24 16:00 08/30/24 15:03 Lactulose Syrup 10 Gm/15 Ml NM 09/28/24 15:59 200 gm TID JERSON Administration Protocol Midodrine 5 mg 08/30/24 08:25 08/30/24 15:04 Midodrine 5 Mg Tablet PO 09/29/24 08:24 Not Given TID JERSON Pantoprazole Sodium 40 mg 08/28/24 21:00 08/30/24 09:50 Pantoprazole Inj 40 Mg Vial IVP 09/27/24 20:59 40 mg BID JERSON Administration Rifaximin 550 mg 08/28/24 21:00 08/30/24 10:50 Rifaximin 550 Mg Tablet PO 09/04/24 20:59 Not Given BID JERSON Sodium Chloride 5 ml 08/28/24 17:29 08/28/24 18:47 Sodium Chloride Rt Janessa 0.9% 3 Ml Nebu INH 09/27/24 17:28 3 ml PRN PRN Administration SOLN Thiamine HCl 100 mg 08/28/24 20:45 08/30/24 10:50 Thiamine 100 Mg Tablet PO 09/27/24 20:44 Not Given QDAY JERSON Plan Mr. Stack is a 74-year-old male with past medical history of liver cirrhosis secondary to alcohol use disorder, esophageal varices, ?Asthma/COPD, GERD, anxiety and BPH who was BIBA to [facility] emergency department from home on 08/28/2024 with a chief complaint of altered mental status. Patient will be admitted for workup and management of hepatic encephalopathy and acute blood loss anemia. 1. Altered mental status secondary to acute metabolic encephalopathy At baseline patient is conversational and oriented x 3. On admission patient was altered and ANO x 0. On exam patient's pupils reactive to light nonverbal and unresponsive to sternal rub. DDx: Hepatic encephalopathy, medication side effect, TIA CT brain was negative for hemorrhage, mass effect or midline shift Ammonia 57 Plan: ? Aspiration precautions ? Head of bed elevation ? Neurochecks every 4 hourly ? Lactulose 200 g as needed 3 times daily for hepatic encephalopathy ? Continue thiamine p.o. 2. Acute blood loss anemia secondary to GI bleed 3. Likely upper GI bleed secondary to esophageal varices 4. Decompensated alcoholic cirrhosis with coagulopathy and thrombocytopenia 5. Hyperbilirubinemia Patient was found unconscious in a pool of coffee-ground emesis On admission patient's Hb 7.6 and he received 2 units PRBC. Post H&H 7.4 T.Bili 3.8 Last EGD completed on 07/11/2024 findings include: Grade 1 esophageal varices not large enough for band ligation. Gastritis with hemorrhage characterized by congestion. 1+ gastric fundus varices. Meld?NA score 20 points. 3-4% 90-day mortality. Child?Hernandez class C. 12 points. Life expectancy 1-3 years. Abdominal surgery mortality 82% Plan: ? N.p.o. ? Repeat H&H. Transfuse if Hb <7 ? Protonix 40 Mg IV twice daily ? Continue octreotide infusion at 50 mcg/hour - Patient on ceftriaxone 1 g IV daily for SBP prophylaxis ? Possible EGD tonight ? GI, Dr. Hall consulted and closely following the case. Appreciate recommendations. 6. Asthma 7. COPD Home medication Trelegy inhaler Plan: ? DuoNebs as needed 8. Low TSH 9. Low T4 TSH 0.39, T4 0.84 Likely normal based on patient age Health maintenance: Disposition: NM lactulose, IV octreotide. Possible EGD tonight. GI recs Diet: N.p.o. Lines: pIVs GI Prophylaxis: Pantoprazole 40 IV twice daily Thrombo Prophylaxis: SCDs Code status: FULL CODE This patient care was discussed with my attending Dr. Xena Ignacio MD PGY-2 Disclaimer: Minor errors in privacy officer may be present since this note was dictated by speech recognition software.
[2024-08-30] MEDS: rifaximin 550 MG TABLET PO (20:14)
[2024-08-30] MEDS: AMOXICILLIN/POT CLAV 875 TABLET 1 TAB PO (20:14)
[2024-08-31] VITALS (13 sets, daily range): BP systolic 116–151; BP diastolic 66–92; PULSE 71–120; RESP 15–22; TEMP 36–37.2; O2SAT 93–99; BMI 24.5
[2024-08-31] MEDS: ALPRazoLAM 0.25 MG TABLET 0.5 MG PO (02:05)
[2024-08-31 06:03] LABS: Basophils % (Auto) 0 % (0-2.5); Eosinophils # (Auto) 0.1 Thou/mm3 (0.0-0.5); Eosinophils % (Auto) 2 % (0-10); Hematocrit 26.9 % (41.0-53.0); Hemoglobin 8.9 g/dL (13.5-16.0); Immature Granulocytes % (Auto) 0 % (0-0); Immature Granulocytes Auto 0.02 Thou/mm3 (0.00-0.00); Lymphocytes # (Auto) 0.7 Thou/mm3 (1.0-4.8); Lymphocytes % (Auto) 10 % (10-50); Mean Corpuscular HGB Conc 33.1 g/dl (31.0-37.0); Mean Corpuscular Hemoglobin 31.1 pg (25.0-35.0); Mean Corpuscular Volume 94 fL (80-100); Monocytes # (Auto) 0.7 Thou/mm3 (0.0-0.8); Monocytes % (Auto) 10 % (0-12); Neutrophils # (Auto) 5.5 Thou/mm3 (1.8-7.7); Neutrophils % (Auto) 78 % (37-80); Nucleated Red Blood Cell % 0 /100 WBC (0); RDW Standard Deviation 65.1 fL (35.1-43.9); Red Blood Count 2.86 Miln/mm3 (4.50-5.90)
[2024-08-31 06:04] LABS: Platelet Count 71 Thou/mm3 (140-440)
[2024-08-31 06:10] LABS: Slide Review Platelets confirmed
[2024-08-31 06:13] LABS: INR 2.1 (0.9-1.3); Partial Thromboplastin Time 34.5 Seconds (22.0-36.0); Prothrombin Time 21.4 Seconds (9.0-12.2)
[2024-08-31 06:23] LABS: Alanine Aminotransferase 32 U/L (10-49); Albumin, Serum 2.1 gm/dL (3.4-4.8); Albumin/Globulin Ratio 0.5 (1.2-2.2); Alkaline Phosphatase 166 U/L (46-116); Anion Gap 5 (7-16); Aspartate Amino Transferase 93 U/L (0-34); BUN/Creatinine Ratio 42 Ratio (12-20); Bilirubin,Total 5.6 mg/dL (0.3-1.2); Blood Urea Nitrogen 21 mg/dL (9-23); Calcium 7.5 mg/dL (8.3-10.6); Carbon Dioxide 27.8 mMol/L (20.0-31.0); Chloride 113 mMol/L (98-107); Creatinine (Component) 0.5 mg/dL (0.6-1.3); Estimated Creatinine Clearance 129.8 mL/min (>60); Globulin 4.1 gm/dL (2.3-3.5); Glucose 86 mg/dL (74-106); Magnesium 1.9 mg/dL (1.6-2.6); Osmolality,Calculated 292 (275-295); Phosphorous 1.8 mg/dL (2.4-5.1); Sodium 146 mMol/L (136-145); Total Protein 6.2 gm/dL (5.7-8.2); eGFR > 60 See Note
[2024-08-31 06:27] LABS: Potassium 2.7 mMol/L (3.4-5.1)
[2024-08-31] MEDS: PANTOPRAZOLE INJ 40 MG VIAL IVP ×2 (08:45→21:26)
[2024-08-31] MEDS: FOLIC ACID 1 MG TABLET PO (08:45)
[2024-08-31] MEDS: NAPH,KPH MBDB 1 PACKET (1.5 GM) PO (08:45)
[2024-08-31] MEDS: POTASSIUM CHLORIDE 10% 20 MEQ/15 ML UDC 40 MEQ PO (08:45)
[2024-08-31] MEDS: THIAMINE 100 MG TABLET PO (08:45)
[2024-08-31] MEDS: AMOXICILLIN/POT CLAV 875 TABLET 1 TAB PO ×2 (08:45→21:26)
[2024-08-31] MEDS: rifaximin 550 MG TABLET PO ×2 (08:45→21:26)
[2024-08-31] MEDS: POTASSIUM CHL 10 mEq IVPB 10 MEQ/100 ML BAG 100 MEQ IV ×4 (09:01→12:54)
[2024-08-31 11:26] LABS: Albumin, Serum 1.9 gm/dL (3.4-4.8); Anion Gap 4 (7-16); BUN/Creatinine Ratio 38 Ratio (12-20); Blood Urea Nitrogen 19 mg/dL (9-23); Calcium 7.2 mg/dL (8.3-10.6); Calcium (Corrected) 8.9 mg/dL (8.5-10.1); Carbon Dioxide 26.7 mMol/L (20.0-31.0); Chloride 114 mMol/L (98-107); Creatinine (Component) 0.5 mg/dL (0.6-1.3); Estimated Creatinine Clearance 129.8 mL/min (>60); Glucose 139 mg/dL (74-106); Osmolality,Calculated 292 (275-295); Potassium 3.6 mMol/L (3.4-5.1); Sodium 145 mMol/L (136-145); eGFR > 60 See Note
[2024-08-31] MEDS: OCTREOTIDE ACET INJ 1,000 MCG in SODIUM CHLORIDE 0.9% 100 ML 5.1 MCG IV (12:53)
--- NOTE | 2024-08-31 14:11 | PD.IMPROG ---
Documentation for date of: 08/31/24 Subjective Subjective Interval history: Patient encephalopathic he is sleeping most likely due to the meds given hemoglobin hematocrit 8.9 and 26.9 platelet count 71,000 Upper endoscopy shows mucosal oozing of blood due to hypertensive portal gastropathy and 1+ esophageal varices Patient on octreotide Exam Vital Signs Temp Pulse Resp BP Pulse Ox O2 Del Method O2 Flow Rate 96.8 F 100 20 116/66 96 Nasal Cannula 1 08/31/24 12:00 08/31/24 12:00 08/31/24 12:00 08/31/24 12:00 08/31/24 12:00 08/31/24 12:00 08/31/24 12:00 Routine Respiratory Exam Comments: Normal to auscultation Routine Abdominal Exam Comments: Soft nontender Objective Labs 08/31/24 05:28 08/31/24 10:53 Labs: Laboratory Results - last 24 hr 08/31/24 08/31/24 05:28 10:53 WBC 7.0 RBC 2.86 L Hgb 8.9 L Hct 26.9 L MCV 94 MCH 31.1 MCHC 33.1 RDW Std Deviation 65.1 H Plt Count 71 L D Neut % (Auto) 78 Lymph % (Auto) 10 [place] % (Auto) 10 Eos % (Auto) 2 Baso % (Auto) 0 Neut # (Auto) 5.5 Lymph # (Auto) 0.7 L [place] # (Auto) 0.7 Eos # (Auto) 0.1 Baso # (Auto) 0.0 Immature Gran # (Auto) 0.02 H Absolute Nucleated RBC 0.00 Immature Gran % 0 Nucleated RBC % 0 PT 21.4 H INR 2.1 H APTT 34.5 Sodium 146 H 145 Potassium 2.7 L* D 3.6 D Chloride 113 H 114 H Carbon Dioxide 27.8 26.7 Anion Gap 5 L 4 L BUN 21 19 Creatinine 0.5 L 0.5 L Estim Creat Clear Calc 129.8 129.8 eGFR > 60 > 60 BUN/Creatinine Ratio 42 H 38 H Glucose 86 139 H D Calculated Osmolality 292 292 Calcium 7.5 L 7.2 L Corrected Calcium 9.0 8.9 Phosphorus 1.8 L 2.0 L Magnesium 1.9 Total Bilirubin 5.6 H D AST 93 H ALT 32 Alkaline Phosphatase 166 H Total Protein 6.2 Albumin 2.1 L 1.9 L Globulin 4.1 H Albumin/Globulin Ratio 0.5 L Misc Test Result Platelets confirmed Impressions Impression: Upper GI bleed secondary to mucosal oozing of blood advanced portal hypertension 1-2+ esophageal varices hepatic encephalopathy Continue current management ABG Interpretation ABG results: 08/28/24 08/29/24 22:40 10:05 ABG pH 7.41 7.50 H ABG pCO2 29 L 33 ABG pO2 69 L 63 L ABG HCO3 18 L 25 ABG O2 Saturation 94 94 ABG Base Excess -6 L 2 Assessment & Plan A&P Narrative # Acute upper GI bleed in the form of melena # Acute posthemorrhagic anemia # Acute hepatic encephalopathy # Chronic liver disease with thrombocytopenia abnormal liver function test and coagulopathy secondary to alcohol Plan Agree with the blood transfusion give patient 2 units of PRBC Octreotide infusion Lactulose and Xifaxan Consent will be obtained from the sister who makes that decision for fiberoptic esophagogastroduodenoscopy with possible therapeutic intervention under intravenous moderate sedation Prognosis guarded Thank you for the opportunity to participate in the care of this patient Time Spent With Patient Time: Total time spent is greater than 50% in coordination of care (as documented) at patient's floor/unit and/or counseling patient:
--- NOTE | 2024-08-31 14:21 | ESPR_ITS ---
<Statement entered by Esteban Mccallum MD - 09/08/24 15:02> I reviewed above note and agree with findings and plans. I have also personally examined the patient with medicine team and went over assessment and plan with medical team including internal revenue service agent and resident physician. <Statement entered by Leno Pa MD - 09/01/24 16:31> Agree with plan and examination finding on the note below. Patient seen and examined at bedside today. Labs and imaging reviewed. Patient care discussed with my attending Dr. Mccallum and co-resident . Documentation for date of: 08/31/24 Subjective Subjective Interval history: Patient was seen and examined at bedside this AM. No acute exents overnight. Patient tolerating diet, adequate urine output and mentation is at baseline, oriented to person Patient still confused, but oriented to person and date of . Patient now more oriented and can swallow. Will discontinue lactulose ID and start on lactulose p.o. K2.7, Phos 1.8. Patient repleted with KCl 40 mEq p.o. x 1, KCl 40 mEq IV x 1 and Neutra-Phos 1 packet. Patient urine appears concentrated. Will give 1 L of D5/W at 100 cc/h. Exam Vital Signs Temp Pulse Resp BP Pulse Ox O2 Del Method O2 Flow Rate 96.8 F 100 20 116/66 96 Nasal Cannula 1 08/31/24 12:00 08/31/24 12:00 08/31/24 12:00 08/31/24 12:00 08/31/24 12:00 08/31/24 12:00 08/31/24 12:00 Narrative Exam Constitutional Alert, oriented x 1 [person] and comfortable. Elderly male HEENT Vision grossly intact. Patent nares. Trachea midline Respiratory Chest normal on inspection and clear auscultation bilaterally Cardiovascular S1 and S2 audible, RRR. No murmurs carotid bruit. No gross JVD. Abdominal Soft and non tender to palpation in all quadrants. BS + Genitourinary No bladder tenderness, no flank pain. Normal to palpation Musculoskeletal Extremities tone within normal limits. No LE edema. Neurological CN II - XII grossly intact. Extremity motor and sensation grossly intact. Skin Warm, dry and intact. No apparent lesions. Psychiatric Patient has good affect, is cooperative Objective Labs 08/31/24 05:28 08/31/24 10:53 Labs: Laboratory Results - last 24 hr 08/31/24 08/31/24 05:28 10:53 WBC 7.0 RBC 2.86 L Hgb 8.9 L Hct 26.9 L MCV 94 MCH 31.1 MCHC 33.1 RDW Std Deviation 65.1 H Plt Count 71 L D Neut % (Auto) 78 Lymph % (Auto) 10 [place] % (Auto) 10 Eos % (Auto) 2 Baso % (Auto) 0 Neut # (Auto) 5.5 Lymph # (Auto) 0.7 L [place] # (Auto) 0.7 Eos # (Auto) 0.1 Baso # (Auto) 0.0 Immature Gran # (Auto) 0.02 H Absolute Nucleated RBC 0.00 Immature Gran % 0 Nucleated RBC % 0 PT 21.4 H INR 2.1 H APTT 34.5 Sodium 146 H 145 Potassium 2.7 L* D 3.6 D Chloride 113 H 114 H Carbon Dioxide 27.8 26.7 Anion Gap 5 L 4 L BUN 21 19 Creatinine 0.5 L 0.5 L Estim Creat Clear Calc 129.8 129.8 eGFR > 60 > 60 BUN/Creatinine Ratio 42 H 38 H Glucose 86 139 H D Calculated Osmolality 292 292 Calcium 7.5 L 7.2 L Corrected Calcium 9.0 8.9 Phosphorus 1.8 L 2.0 L Magnesium 1.9 Total Bilirubin 5.6 H D AST 93 H ALT 32 Alkaline Phosphatase 166 H Total Protein 6.2 Albumin 2.1 L 1.9 L Globulin 4.1 H Albumin/Globulin Ratio 0.5 L Misc Test Result Platelets confirmed ABG Interpretation ABG results: 08/28/24 08/29/24 22:40 10:05 ABG pH 7.41 7.50 H ABG pCO2 29 L 33 ABG pO2 69 L 63 L ABG HCO3 18 L 25 ABG O2 Saturation 94 94 ABG Base Excess -6 L 2 Quality Measures Quality Measures none Advance care planning discussed with:: patient Assessment & Plan Assessment Current Active Medications: Generic Name Dose Route Start Last Admin Trade Name Freq PRN Reason Stop Dose Admin Acetaminophen 325 mg 08/28/24 20:28 Acetaminophen 325 Mg Tablet PO 09/27/24 20:27 Q6H PRN PAIN SCALE 1-3 (mild Albuterol/Ipratropium 3 ml 08/28/24 20:24 08/29/24 23:00 Albuterol/Ipratropium (Duoneb) Rt Janessa 3 Ml Nebu INH 09/27/24 22:59 3 ml Q4HRRT PRN Administration Wheeze Amoxicillin/Clavulanate Potassium 1 tab 08/30/24 21:00 08/31/24 08:45 Amoxicillin/Pot Clav 875 Tablet PO 09/06/24 20:59 1 tab BID JERSON Administration Folic Acid 1 mg 08/29/24 09:00 08/31/24 08:45 Folic Acid 1 Mg Tablet PO 09/28/24 08:59 1 mg QDAY JERSON Administration Octreotide Acetate 1,000 mcg/ 102 mls @ 5.1 mls/hr 08/29/24 13:47 08/31/24 12:53 Sodium Chloride IV 09/02/24 17:46 50 mcg/hr .Q20H JERSON 5.1 mls/hr Administration Protocol 50 MCG/HR Dextrose 1,000 mls @ 100 mls/hr 08/31/24 14:15 D5w IV 09/30/24 14:14 .Q10H JERSON Lactulose 40 gm 08/31/24 14:00 Lactulose Syrup 20 Gm/30 Ml Udc PO 09/30/24 13:59 TID JERSON Protocol Midodrine 5 mg 08/31/24 00:21 08/31/24 06:19 Midodrine 5 Mg Tablet PO 09/29/24 08:24 Not Given TID JERSON Pantoprazole Sodium 40 mg 08/28/24 21:00 08/31/24 08:45 Pantoprazole Inj 40 Mg Vial IVP 09/27/24 20:59 40 mg BID JERSON Administration Propranolol HCl 10 mg 08/31/24 14:00 Propranolol 10 Mg Tablet PO 09/30/24 13:59 TID JERSON Rifaximin 550 mg 08/28/24 21:00 08/31/24 08:45 Rifaximin 550 Mg Tablet PO 09/04/24 20:59 550 mg BID JERSON Administration Sodium Chloride 5 ml 08/28/24 17:29 08/28/24 18:47 Sodium Chloride Rt Janessa 0.9% 3 Ml Nebu INH 09/27/24 17:28 3 ml PRN PRN Administration SOLN Thiamine HCl 100 mg 08/28/24 20:45 08/31/24 08:45 Thiamine 100 Mg Tablet PO 09/27/24 20:44 100 mg QDAY JERSON Administration Plan Mr. Stack is a 74-year-old male with past medical history of liver cirrhosis secondary to alcohol use disorder, esophageal varices, ?Asthma/COPD, GERD, anxiety and BPH who was BIBA to [facility] emergency department from home on 08/28/2024 with a chief complaint of altered mental status. Patient will be admitted for workup and management of hepatic encephalopathy and acute blood loss anemia. 1. Altered mental status secondary to acute metabolic encephalopathy?resolving At baseline patient is conversational and oriented x 3. On admission patient was altered and ANO x 0. On exam patient's pupils reactive to light nonverbal and unresponsive to sternal rub. DDx: Hepatic encephalopathy, medication side effect, TIA CT brain was negative for hemorrhage, mass effect or midline shift Ammonia 57 Plan: ? Aspiration precautions ? Head of bed elevation ? Neurochecks every 4 hourly ? Discontinued lactulose as needed started on lactulose 40 Mg p.o. 3 times daily ? Continue thiamine p.o. 2. Likely aspiration pneumonia Patient presented with altered mental status On exam patient has decreased air entry at the bases Chest x-ray showed trace fluid in horizontal fissure right lung. Plan: ? Continue Augmentin 1 tab p.o. twice daily started on [08/30? 3. Acute blood loss anemia secondary to GI bleed 4. Likely upper GI bleed secondary to esophageal varices 5. Decompensated alcoholic cirrhosis with coagulopathy and thrombocytopenia 6. Hyperbilirubinemia - improving Patient was found unconscious in a pool of coffee-ground emesis On admission patient's Hb 7.6 and he received 2 units PRBC. Post H&H 7.4 T.Bili 3.8 ---> 2 EGD completed on 08/29/2024 findings include: Diffuse hypertensive portal gastropathy with mucosal oozing of blood and 1+ esophageal varices not large enough for band ligation.. Meld?NA score 20 points. 3-4% 90-day mortality. Child?Hernandez class C. 12 points. Life expectancy 1-3 years. Abdominal surgery mortality 82% Plan: ? Clear liquid diet - Discontinued ceftriaxone 1 g IV daily as SBP unlikely ? Protonix 40 Mg IV twice daily ? Continue octreotide infusion at 50 mcg/hour to complete a total of 5 days on 09/02/2024 ? Possible EGD tonight ? GI, Dr. Hall consulted and closely following the case. Appreciate recommendations. 7. Asthma 8. COPD Home medication Trelegy inhaler Plan: ? DuoNebs as needed 9. Low TSH 10. Low T4 TSH 0.39, T4 0.84 Likely normal based on patient age Health maintenance: Disposition: Continue octreotide infusion until 09/02. For goals of care with family tomorrow with regards for possible SNF versus hospice placement Diet: Clear liquid Lines: pIVs GI Prophylaxis: Protonix 40 Mg IV twice daily Thrombo Prophylaxis: Contraindicated Code status: FULL CODE Plan of care discussed with Attending Dr. Mccallum and PGY3 Dr. Thierno Green MD PGY 1
--- NOTE | 2024-08-31 15:07 | PC.SS ---
Custom Decorating Consultant contacted patient?s sibling Maggy Romero [phone] via telephone to complete initial assessment. ?Patient?s sibling Maggy confirmed patient?s demographic information. ?She requested patient?s software maintenance engineer Briana Jeff [phone] also be contacted to verify patient?s information. Patient?s sibling Maggy confirmed she is the surrogate decision maker. Patient?s sibling Maggy stated patient requires assistance with ADL completion and utilizes a cane to ambulate. Public Health Nurse Briana Jeff assists patient with ADLs. Patient utilizes 2L of oxygen as needed. Preferred Pharmacy: [facility]. PCP: Dr. Schuster. Discharge plan: Home, Public Health Nurse Briana to transport. ? Alt. Decision maker: Sibling Maggy Romero [phone].
[2024-08-31] MEDS: LACTULOSE SYRUP 20 GM/30 ML UDC 40 GM PO ×2 (15:10→21:27)
[2024-08-31] MEDS: PROPRANOLOL 10 MG TABLET PO ×2 (15:10→21:26)
[2024-08-31] MEDS: DEXTROSE 5%-WATER 1,000 ML 100 ML IV (15:18)
[2024-08-31 22:58] LABS: Hepatitis A Antibody IgM Non Reactive (Non React); Hepatitis B Core Antibody IgM Non Reactive (Non React); Hepatitis B Surface Antigen Non Reactive (Non React); Hepatitis C Antibody Reactive (Non React)
[2024-09-01] VITALS (13 sets, daily range): BP systolic 101–144; BP diastolic 53–86; PULSE 64–115; RESP 18–23; TEMP 36.3–37.8; O2SAT 94–99
[2024-09-01] MEDS: LACTULOSE SYRUP 20 GM/30 ML UDC 40 GM PO ×2 (05:38→14:28)
[2024-09-01] MEDS: PROPRANOLOL 10 MG TABLET PO ×3 (05:38→21:26)
[2024-09-01 06:10] LABS: Basophils % (Auto) 0 % (0-2.5); Eosinophils # (Auto) 0.5 Thou/mm3 (0.0-0.5); Eosinophils % (Auto) 5 % (0-10); Hematocrit 28.4 % (41.0-53.0); Hemoglobin 9.5 g/dL (13.5-16.0); Immature Granulocytes % (Auto) 0 % (0-0); Immature Granulocytes Auto 0.03 Thou/mm3 (0.00-0.00); Lymphocytes # (Auto) 0.9 Thou/mm3 (1.0-4.8); Lymphocytes % (Auto) 10 % (10-50); Mean Corpuscular HGB Conc 33.5 g/dl (31.0-37.0); Mean Corpuscular Hemoglobin 31.6 pg (25.0-35.0); Mean Corpuscular Volume 94 fL (80-100); Monocytes # (Auto) 0.9 Thou/mm3 (0.0-0.8); Monocytes % (Auto) 10 % (0-12); Neutrophils # (Auto) 6.7 Thou/mm3 (1.8-7.7); Neutrophils % (Auto) 75 % (37-80); Nucleated Red Blood Cell % 0 /100 WBC (0); Platelet Count 81 Thou/mm3 (140-440); RDW Standard Deviation 65.5 fL (35.1-43.9); Red Blood Count 3.01 Miln/mm3 (4.50-5.90)
--- NOTE | 2024-09-01 07:31 | ESPR_ITS ---
<Statement entered by Esteban Mccallum MD - 09/08/24 15:02> I reviewed above note and agree with findings and plans. I have also personally examined the patient with medicine team and went over assessment and plan with medical team including [employer] certified internetwork expert and resident physician. <Statement entered by Leno Pa MD - 09/02/24 17:14> Agree with plan and examination finding on the note below. Patient seen and examined at bedside today. Labs and imaging reviewed. Patient care discussed with my attending Dr. Mccallum and co-resident Dr. Green. Documentation for date of: 09/01/24 Subjective Subjective Interval history: Patient was seen and examined at bedside this AM. No acute exents overnight. Patient tolerating diet, adequate urine output and mentation is at baseline, oriented to person Patient still confused, but oriented to person, place and president. K3.1, Phos 1.9. Repleted with K-Phos 30M EQ IV x 1 and KCl 20 mEq IV x 1. Spoke to next of kin, Maggy Romero over the phone at . Briefly updated her on patient's hospital course and asked her to come in today for a goals of care discussion. Ms. Romero agreed for 3 PM and said she would call if any change of plans. At baseline she says that patient is independent and can carry out all his ADLs. He also has home health who visits him 6 days a week for a total of 21 hours. Exam Vital Signs Temp Pulse Resp BP Pulse Ox O2 Del Method O2 Flow Rate 98.5 F 74 22 H 122/75 99 Nasal Cannula 1 09/01/24 04:00 09/01/24 05:41 09/01/24 04:00 09/01/24 05:41 09/01/24 04:00 09/01/24 04:00 09/01/24 04:00 Narrative Exam Constitutional Alert, oriented x 2 [person and place] and comfortable. Elderly male HEENT Vision grossly intact. Patent nares. Trachea midline Respiratory Chest normal on inspection and clear auscultation bilaterally Cardiovascular S1 and S2 audible, RRR. No murmurs carotid bruit. No gross JVD. Abdominal Soft and non tender to palpation in all quadrants. BS + Genitourinary No bladder tenderness, no flank pain. Normal to palpation Musculoskeletal Extremities tone within normal limits. No LE edema. Neurological CN II - XII grossly intact. Extremity motor and sensation grossly intact. Skin Warm, dry and intact. No apparent lesions. Psychiatric Patient has good affect, is cooperative Objective Labs 09/01/24 05:20 09/01/24 05:20 Labs: Laboratory Results - last 24 hr 08/31/24 08/31/24 09/01/24 05:55 10:53 05:20 WBC 9.0 RBC 3.01 L Hgb 9.5 L Hct 28.4 L MCV 94 MCH 31.6 MCHC 33.5 RDW Std Deviation 65.5 H Plt Count 81 L Neut % (Auto) 75 Lymph % (Auto) 10 [place] % (Auto) 10 Eos % (Auto) 5 Baso % (Auto) 0 Neut # (Auto) 6.7 Lymph # (Auto) 0.9 L [place] # (Auto) 0.9 H Eos # (Auto) 0.5 Baso # (Auto) 0.0 Immature Gran # (Auto) 0.03 H Absolute Nucleated RBC 0.00 Immature Gran % 0 Nucleated RBC % 0 Sodium 145 Potassium 3.6 D Chloride 114 H Carbon Dioxide 26.7 Anion Gap 4 L BUN 19 Creatinine 0.5 L Estim Creat Clear Calc 129.8 eGFR > 60 BUN/Creatinine Ratio 38 H Glucose 139 H D Calculated Osmolality 292 Calcium 7.2 L Corrected Calcium 8.9 Phosphorus 2.0 L Albumin 1.9 L Hepatitis A IgM Ab Non Reactive Hep Bs Antigen Non Reactive Hep B Core IgM Ab Non Reactive Hepatitis C Antibody Reactive A ABG Interpretation ABG results: 08/28/24 08/29/24 22:40 10:05 ABG pH 7.41 7.50 H ABG pCO2 29 L 33 ABG pO2 69 L 63 L ABG HCO3 18 L 25 ABG O2 Saturation 94 94 ABG Base Excess -6 L 2 Quality Measures Quality Measures none Advance care planning discussed with:: other Assessment & Plan Assessment Current Active Medications: Generic Name Dose Route Start Last Admin Trade Name Freq PRN Reason Stop Dose Admin Acetaminophen 325 mg 08/28/24 20:28 Acetaminophen 325 Mg Tablet PO 09/27/24 20:27 Q6H PRN PAIN SCALE 1-3 (mild Albuterol/Ipratropium 3 ml 08/28/24 20:24 08/29/24 23:00 Albuterol/Ipratropium (Duoneb) Rt Janessa 3 Ml Nebu INH 09/27/24 22:59 3 ml Q4HRRT PRN Administration Wheeze Amoxicillin/Clavulanate Potassium 1 tab 08/30/24 21:00 08/31/24 21:26 Amoxicillin/Pot Clav 875 Tablet PO 09/06/24 20:59 1 tab BID JERSON Administration Folic Acid 1 mg 08/29/24 09:00 08/31/24 08:45 Folic Acid 1 Mg Tablet PO 09/28/24 08:59 1 mg QDAY JERSON Administration Octreotide Acetate 1,000 mcg/ 102 mls @ 5.1 mls/hr 08/29/24 13:47 08/31/24 12:53 Sodium Chloride IV 09/02/24 17:46 50 mcg/hr .Q20H JERSON 5.1 mls/hr Administration Protocol 50 MCG/HR Lactulose 40 gm 08/31/24 14:00 09/01/24 05:38 Lactulose Syrup 20 Gm/30 Ml Udc PO 09/30/24 13:59 40 gm TID JERSON Administration Protocol Midodrine 5 mg 08/31/24 00:21 09/01/24 05:41 Midodrine 5 Mg Tablet PO 09/29/24 08:24 Not Given TID JERSON Pantoprazole Sodium 40 mg 08/28/24 21:00 08/31/24 21:26 Pantoprazole Inj 40 Mg Vial IVP 09/27/24 20:59 40 mg BID JERSON Administration Propranolol HCl 10 mg 08/31/24 14:00 09/01/24 05:38 Propranolol 10 Mg Tablet PO 09/30/24 13:59 10 mg TID JERSON Administration Rifaximin 550 mg 08/28/24 21:00 08/31/24 21:26 Rifaximin 550 Mg Tablet PO 09/04/24 20:59 550 mg BID JERSON Administration Sodium Chloride 5 ml 08/28/24 17:29 08/28/24 18:47 Sodium Chloride Rt Janessa 0.9% 3 Ml Nebu INH 09/27/24 17:28 3 ml PRN PRN Administration SOLN Thiamine HCl 100 mg 08/28/24 20:45 08/31/24 08:45 Thiamine 100 Mg Tablet PO 09/27/24 20:44 100 mg QDAY EJRSON Administration Plan Mr. Stack is a 74-year-old male with past medical history of liver cirrhosis secondary to alcohol use disorder, esophageal varices, ?Asthma/COPD, GERD, anxiety and BPH who was BIBA to [facility] emergency department from home on 08/28/2024 with a chief complaint of altered mental status. Patient will be admitted for workup and management of hepatic encephalopathy and acute blood loss anemia. 1. Altered mental status secondary to acute metabolic encephalopathy?resolving At baseline patient is conversational and oriented x 3. On admission patient was altered and ANO x 0. On exam patient's pupils reactive to light nonverbal and unresponsive to sternal rub. DDx: Hepatic encephalopathy, medication side effect, TIA CT brain was negative for hemorrhage, mass effect or midline shift Ammonia 57 Plan: ? Aspiration precautions ? Head of bed elevation ? Neurochecks every 4 hourly ? Continue lactulose 30 Mg p.o. 3 times daily ? Continue thiamine p.o. 2. Likely aspiration pneumonia Patient presented with altered mental status On exam patient has decreased air entry at the bases Chest x-ray showed trace fluid in horizontal fissure right lung. Plan: ? Continue Augmentin 1 tab p.o. twice daily started on [08/30? 3. Hypokalemia 4. Hypophosphatemia K3.1, Phos 1.9. Repleted with K-Phos 30M EQ IV x 1 and KCl 20 mEq IV x 1. Plan: ? K-Phos 30 mEq IV x 1 ? KCl 20 mEq IV x 1 ? Monitor on a.m. CMP 5. Acute blood loss anemia secondary to GI bleed?resolving 6. Likely upper GI bleed secondary to esophageal varices?resolving 7. Decompensated alcoholic cirrhosis with coagulopathy and thrombocytopenia 8. Hyperbilirubinemia - improving Patient was found unconscious in a pool of coffee-ground emesis On admission patient's Hb 7.6 and he received 2 units PRBC. Post H&H 7.4 T.Bili 3.8 ---> 2 Plt 81 EGD completed on 08/29/2024 findings include: Diffuse hypertensive portal gastropathy with mucosal oozing of blood and 1+ esophageal varices not large enough for band ligation.. Meld?NA score 23 points. 7-10% 90-day mortality. Child?Hernandez class C. 12 points. Life expectancy 1-3 years. Abdominal surgery mortality 82% Plan: ? Graduated to cardiac diet from clear liquids. ? Protonix 40 Mg IV twice daily ? Continue octreotide infusion at 50 mcg/hour to complete a total of 5 days on 09/02/2024 ? GI, Dr. Hall consulted and closely following the case. Appreciate recommendations. 9. Asthma 10. COPD Home medication Trelegy inhaler Plan: ? DuoNebs as needed 11. Low TSH 12. Low T4 TSH 0.39, T4 0.84 Likely normal based on patient age 13. Goals of care discussion Spoke to next of kin, Maggy Romero over the phone at [phone]. Briefly updated her on patient's hospital course and asked her to come in today for a goals of care discussion. Ms. Romero agreed for 3 PM and said she would call if any change of plans. At baseline she says that patient is independent and can carry out all his ADLs. He also has home health who visits him 6 days a week for a total of 21 hours. Patient's next of kin did not show up today. Will reach out again tomorrow. Health maintenance: Disposition: Continue octreotide infusion until 09/02. For goals of care with family tomorrow with regards for possible SNF versus hospice placement Diet: Clear liquid Lines: pIVs GI Prophylaxis: Protonix 40 Mg IV twice daily Thrombo Prophylaxis: Contraindicated Code status: FULL CODE Plan of care discussed with Attending Dr. Mccallum and PGY3 Dr. Thireno Green MD PGY 1
[2024-09-01 07:48] LABS: Alanine Aminotransferase 33 U/L (10-49); Albumin, Serum 1.9 gm/dL (3.4-4.8); Albumin/Globulin Ratio 0.5 (1.2-2.2); Alkaline Phosphatase 160 U/L (46-116); Anion Gap 8 (7-16); Aspartate Amino Transferase 96 U/L (0-34); BUN/Creatinine Ratio 26 Ratio (12-20); Bilirubin,Total 7.9 mg/dL (0.3-1.2); Blood Urea Nitrogen 13 mg/dL (9-23); Calcium 7.2 mg/dL (8.3-10.6); Calcium (Corrected) 8.9 mg/dL (8.5-10.1); Carbon Dioxide 26.5 mMol/L (20.0-31.0); Chloride 111 mMol/L (98-107); Creatinine (Component) 0.5 mg/dL (0.6-1.3); Estimated Creatinine Clearance 129.8 mL/min (>60); Globulin 3.9 gm/dL (2.3-3.5); Glucose 79 mg/dL (74-106); Magnesium 1.8 mg/dL (1.6-2.6); Osmolality,Calculated 287 (275-295); Phosphorous 1.9 mg/dL (2.4-5.1); Potassium 3.1 mMol/L (3.4-5.1); Sodium 145 mMol/L (136-145); Total Protein 5.8 gm/dL (5.7-8.2); eGFR > 60 See Note
[2024-09-01] MEDS: POT PHOS 15 mMol in NS 250 ML 15 MMOL/250 ML BAG 62.5 MMOL IV ×2 (08:23→12:47)
[2024-09-01] MEDS: PANTOPRAZOLE INJ 40 MG VIAL IVP ×2 (08:24→21:24)
[2024-09-01] MEDS: rifaximin 550 MG TABLET PO ×2 (08:24→21:25)
[2024-09-01] MEDS: POTASSIUM CHLORIDE 10% 20 MEQ/15 ML UDC PO (08:24)
[2024-09-01] MEDS: THIAMINE 100 MG TABLET PO (08:24)
[2024-09-01] MEDS: FOLIC ACID 1 MG TABLET PO (08:24)
--- NOTE | 2024-09-01 09:09 | PC.SS ---
Follow up note: Goals of care meeting today at 3pm.
[2024-09-01] MEDS: OCTREOTIDE ACET INJ 1,000 MCG in SODIUM CHLORIDE 0.9% 100 ML 5.1 MCG IV (09:36)
[2024-09-01] MEDS: AMOXICILLIN/POT CLAV 875 TABLET 1 TAB PO ×2 (09:37→21:24)
[2024-09-01] MEDS: MIDODRINE 5 MG TABLET PO ×2 (14:28→21:26)
--- NOTE | 2024-09-01 20:17 | PD.IMPROG ---
Documentation for date of: 09/01/24 Subjective Subjective Interval history: Patient evaluated Confused and agitated Hemoglobin hematocrit 9.5 and 28.4 Exam Vital Signs Temp Pulse Resp BP Pulse Ox O2 Del Method O2 Flow Rate 97.4 F 77 18 131/65 H 97 Nasal Cannula 1 09/01/24 20:00 09/01/24 20:00 09/01/24 20:00 09/01/24 20:00 09/01/24 20:00 09/01/24 20:00 09/01/24 20:00 Objective Labs 09/01/24 05:20 09/01/24 05:20 Labs: Laboratory Results - last 24 hr 08/31/24 09/01/24 05:55 05:20 WBC 9.0 RBC 3.01 L Hgb 9.5 L Hct 28.4 L MCV 94 MCH 31.6 MCHC 33.5 RDW Std Deviation 65.5 H Plt Count 81 L Neut % (Auto) 75 Lymph % (Auto) 10 [place] % (Auto) 10 Eos % (Auto) 5 Baso % (Auto) 0 Neut # (Auto) 6.7 Lymph # (Auto) 0.9 L [place] # (Auto) 0.9 H Eos # (Auto) 0.5 Baso # (Auto) 0.0 Immature Gran # (Auto) 0.03 H Absolute Nucleated RBC 0.00 Immature Gran % 0 Nucleated RBC % 0 Sodium 145 Potassium 3.1 L D Chloride 111 H Carbon Dioxide 26.5 Anion Gap 8 BUN 13 Creatinine 0.5 L Estim Creat Clear Calc 129.8 eGFR > 60 BUN/Creatinine Ratio 26 H Glucose 79 D Calculated Osmolality 287 Calcium 7.2 L Corrected Calcium 8.9 Phosphorus 1.9 L Magnesium 1.8 Total Bilirubin 7.9 H D AST 96 H ALT 33 Alkaline Phosphatase 160 H Total Protein 5.8 Albumin 1.9 L Globulin 3.9 H Albumin/Globulin Ratio 0.5 L Hepatitis A IgM Ab Non Reactive Hep Bs Antigen Non Reactive Hep B Core IgM Ab Non Reactive Hepatitis C Antibody Reactive A Impressions Impression: # Acute hepatic encephalopathy # Upper GI bleed due to mucosal bleeding due to hypertensive portal gastropathy ABG Interpretation ABG results: 08/28/24 08/29/24 22:40 10:05 ABG pH 7.41 7.50 H ABG pCO2 29 L 33 ABG pO2 69 L 63 L ABG HCO3 18 L 25 ABG O2 Saturation 94 94 ABG Base Excess -6 L 2 Assessment & Plan A&P Narrative # Acute upper GI bleed in the form of melena # Acute posthemorrhagic anemia # Acute hepatic encephalopathy # Chronic liver disease with thrombocytopenia abnormal liver function test and coagulopathy secondary to alcohol Plan Agree with the blood transfusion give patient 2 units of PRBC Octreotide infusion Lactulose and Xifaxan Consent will be obtained from the sister who makes that decision for fiberoptic esophagogastroduodenoscopy with possible therapeutic intervention under intravenous moderate sedation Prognosis guarded Thank you for the opportunity to participate in the care of this patient Time Spent With Patient Time: Total time spent is greater than 50% in coordination of care (as documented) at patient's floor/unit and/or counseling patient:
[2024-09-01] MEDS: LACTULOSE SYRUP 20 GM/30 ML UDC 30 GM PO (21:25)
[2024-09-02] VITALS (14 sets, daily range): BP systolic 93–112; BP diastolic 58–76; PULSE 63–113; RESP 17–23; TEMP 36.2–37.4; O2SAT 90–98; BMI 12.0
[2024-09-02] MEDS: PROPRANOLOL 10 MG TABLET PO ×3 (05:39→22:14)
[2024-09-02 05:44] LABS: Basophils % (Auto) 0 % (0-2.5); Eosinophils # (Auto) 0.1 Thou/mm3 (0.0-0.5); Eosinophils % (Auto) 2 % (0-10); Hematocrit 30.7 % (41.0-53.0); Hemoglobin 10.1 g/dL (13.5-16.0); Immature Granulocytes % (Auto) 0 % (0-0); Immature Granulocytes Auto 0.04 Thou/mm3 (0.00-0.00); Lymphocytes # (Auto) 1.2 Thou/mm3 (1.0-4.8); Lymphocytes % (Auto) 13 % (10-50); Mean Corpuscular HGB Conc 32.9 g/dl (31.0-37.0); Mean Corpuscular Hemoglobin 31.5 pg (25.0-35.0); Mean Corpuscular Volume 96 fL (80-100); Monocytes % (Auto) 11 % (0-12); Neutrophils % (Auto) 74 % (37-80); Nucleated Red Blood Cell % 0 /100 WBC (0); Platelet Count 103 Thou/mm3 (140-440); RDW Standard Deviation 68.1 fL (35.1-43.9); Red Blood Count 3.21 Miln/mm3 (4.50-5.90); White Blood Count 9.4 Thou/mm3 (3.8-10.6)
[2024-09-02] MEDS: MIDODRINE 5 MG TABLET PO ×3 (05:45→21:57)
[2024-09-02 06:43] LABS: Alanine Aminotransferase 35 U/L (10-49); Albumin, Serum 1.9 gm/dL (3.4-4.8); Albumin/Globulin Ratio 0.5 (1.2-2.2); Alkaline Phosphatase 161 U/L (46-116); Anion Gap 8 (7-16); Aspartate Amino Transferase 94 U/L (0-34); BUN/Creatinine Ratio 32 Ratio (12-20); Bilirubin,Total 10.4 mg/dL (0.3-1.2); Blood Urea Nitrogen 19 mg/dL (9-23); Calcium 7.6 mg/dL (8.3-10.6); Calcium (Corrected) 9.3 mg/dL (8.5-10.1); Carbon Dioxide 25.5 mMol/L (20.0-31.0); Chloride 112 mMol/L (98-107); Creatinine (Component) 0.6 mg/dL (0.6-1.3); Estimated Creatinine Clearance 108.1 mL/min (>60); Globulin 4.1 gm/dL (2.3-3.5); Glucose 140 mg/dL (74-106); Osmolality,Calculated 292 (275-295); Phosphorous 2.7 mg/dL (2.4-5.1); Potassium 3.5 mMol/L (3.4-5.1); Sodium 145 mMol/L (136-145); eGFR > 60 See Note
--- NOTE | 2024-09-02 08:51 | PD.IMPROG ---
Documentation for date of: 09/02/24 Subjective Subjective Interval history: Patient evaluated hemoglobin hematocrit 10.1 and 30.7 CBC remains encephalopathic Exam Vital Signs Temp Pulse Resp BP Pulse Ox O2 Del Method O2 Flow Rate 98.4 F 69 19 110/69 94 L Nasal Cannula 2 09/02/24 08:00 09/02/24 08:00 09/02/24 08:00 09/02/24 08:00 09/02/24 08:00 09/02/24 08:00 09/02/24 08:00 Objective Labs 09/02/24 04:36 09/02/24 04:36 Labs: Laboratory Results - last 24 hr 09/02/24 04:36 WBC 9.4 RBC 3.21 L Hgb 10.1 L Hct 30.7 L MCV 96 MCH 31.5 MCHC 32.9 RDW Std Deviation 68.1 H Plt Count 103 L D Neut % (Auto) 74 Lymph % (Auto) 13 [place] % (Auto) 11 Eos % (Auto) 2 Baso % (Auto) 0 Neut # (Auto) 7.0 Lymph # (Auto) 1.2 [place] # (Auto) 1.0 H Eos # (Auto) 0.1 Baso # (Auto) 0.0 Immature Gran # (Auto) 0.04 H Absolute Nucleated RBC 0.00 Immature Gran % 0 Nucleated RBC % 0 Sodium 145 Potassium 3.5 Chloride 112 H Carbon Dioxide 25.5 Anion Gap 8 BUN 19 Creatinine 0.6 Estim Creat Clear Calc 108.1 eGFR > 60 BUN/Creatinine Ratio 32 H Glucose 140 H D Calculated Osmolality 292 Calcium 7.6 L Corrected Calcium 9.3 Phosphorus 2.7 Magnesium 2.0 Total Bilirubin 10.4 H D AST 94 H ALT 35 Alkaline Phosphatase 161 H Total Protein 6.0 Albumin 1.9 L Globulin 4.1 H Albumin/Globulin Ratio 0.5 L Impressions Impression: # Upper GI bleed secondary to mucosal oozing of blood due to advanced portal hypertension in setting of cirrhotic liver disease due to alcohol # Acute hepatic encephalopathy Continue present treatment ABG Interpretation ABG results: 08/28/24 08/29/24 22:40 10:05 ABG pH 7.41 7.50 H ABG pCO2 29 L 33 ABG pO2 69 L 63 L ABG HCO3 18 L 25 ABG O2 Saturation 94 94 ABG Base Excess -6 L 2 Assessment & Plan A&P Narrative # Acute upper GI bleed in the form of melena # Acute posthemorrhagic anemia # Acute hepatic encephalopathy # Chronic liver disease with thrombocytopenia abnormal liver function test and coagulopathy secondary to alcohol Plan Agree with the blood transfusion give patient 2 units of PRBC Octreotide infusion Lactulose and Xifaxan Consent will be obtained from the sister who makes that decision for fiberoptic esophagogastroduodenoscopy with possible therapeutic intervention under intravenous moderate sedation Prognosis guarded Thank you for the opportunity to participate in the care of this patient Time Spent With Patient Time: Total time spent is greater than 50% in coordination of care (as documented) at patient's floor/unit and/or counseling patient:
[2024-09-02] MEDS: rifaximin 550 MG TABLET PO ×2 (08:54→22:05)
[2024-09-02] MEDS: THIAMINE 100 MG TABLET PO (08:54)
[2024-09-02] MEDS: FOLIC ACID 1 MG TABLET PO (08:54)
[2024-09-02] MEDS: AMOXICILLIN/POT CLAV 875 TABLET 1 TAB PO ×2 (08:54→21:57)
[2024-09-02] MEDS: POTASSIUM CHLORIDE 10% 20 MEQ/15 ML UDC 40 MEQ PO (08:54)
[2024-09-02] MEDS: PANTOPRAZOLE INJ 40 MG VIAL IVP ×2 (08:55→22:04)
[2024-09-02] MEDS: OCTREOTIDE ACET INJ 1,000 MCG in SODIUM CHLORIDE 0.9% 100 ML 5.1 MCG IV (10:36)
[2024-09-02 10:57] LABS: Bilirubin,Direct 5.6 mg/dL (0.0-0.3)
--- NOTE | 2024-09-02 14:18 | ESPR_ITS ---
<Statement entered by Esteban Mccallum MD - 09/08/24 15:04> I reviewed above note and agree with findings and plans. I have also personally examined the patient with medicine team and went over assessment and plan with medical team including customer operations intern and resident physician. <Statement entered by Leno Pa MD - 09/04/24 10:41> Agree with plan and examination finding on the note below. Patient seen and examined at bedside today. Labs and imaging reviewed. Patient care discussed with my attending and co-resident Dr. Green. Documentation for date of: 09/02/24 Subjective Subjective Interval history: Patient was seen and examined at bedside this AM. No acute exents overnight. Patient tolerating diet, adequate urine output and mentation is at baseline, oriented to person Patient still confused, but oriented to person, place and president. K3.5. KCl 40 mEq p.o. x 1 given Spoke to next of kin, Maggy Romero over the phone at [phone]. Briefly updated her on patient's hospital course and asked her to come in today for a goals of care discussion. She said she might be able to come in tomorrow for an in person visit. Offered her the options of shelter facility versus hospice. She needs more time to think about it. Exam Vital Signs Temp Pulse Resp BP Pulse Ox O2 Del Method O2 Flow Rate 97.1 F 80 18 93/58 L 94 L BiPAP 2 09/02/24 12:00 09/02/24 12:00 09/02/24 12:09/02/24 12:09/02/24 12:09/02/24 12:09/02/24 08:00 Narrative Exam Constitutional Alert, oriented x 2 [person and place] and comfortable. Elderly male on bilateral soft wrist restraints HEENT Vision grossly intact. Patent nares. Trachea midline Respiratory Chest normal on inspection and clear auscultation bilaterally Cardiovascular S1 and S2 audible, RRR. No murmurs carotid bruit. No gross JVD. Abdominal Soft and non tender to palpation in all quadrants. BS + Genitourinary No bladder tenderness, no flank pain. Normal to palpation Musculoskeletal Extremities tone within normal limits. No LE edema. Neurological CN II - XII grossly intact. Extremity motor and sensation grossly intact. Skin Warm, dry and intact. No apparent lesions. Psychiatric Patient has good affect, is cooperative Objective Labs 09/02/24 04:36 09/02/24 04:36 Labs: Laboratory Results - last 24 hr 09/02/24 09/02/24 04:36 10:25 WBC 9.4 RBC 3.21 L Hgb 10.1 L Hct 30.7 L MCV 96 MCH 31.5 MCHC 32.9 RDW Std Deviation 68.1 H Plt Count 103 L D Neut % (Auto) 74 Lymph % (Auto) 13 [place] % (Auto) 11 Eos % (Auto) 2 Baso % (Auto) 0 Neut # (Auto) 7.0 Lymph # (Auto) 1.2 [place] # (Auto) 1.0 H Eos # (Auto) 0.1 Baso # (Auto) 0.0 Immature Gran # (Auto) 0.04 H Absolute Nucleated RBC 0.00 Immature Gran % 0 Nucleated RBC % 0 Sodium 145 Potassium 3.5 Chloride 112 H Carbon Dioxide 25.5 Anion Gap 8 BUN 19 Creatinine 0.6 Estim Creat Clear Calc 108.1 eGFR > 60 BUN/Creatinine Ratio 32 H Glucose 140 H D Calculated Osmolality 292 Calcium 7.6 L Corrected Calcium 9.3 Phosphorus 2.7 Magnesium 2.0 Total Bilirubin 10.4 H D Direct Bilirubin 5.6 H AST 94 H ALT 35 Alkaline Phosphatase 161 H Total Protein 6.0 Albumin 1.9 L Globulin 4.1 H Albumin/Globulin Ratio 0.5 L ABG Interpretation ABG results: 08/28/24 08/29/24 22:40 10:05 ABG pH 7.41 7.50 H ABG pCO2 29 L 33 ABG pO2 69 L 63 L ABG HCO3 18 L 25 ABG O2 Saturation 94 94 ABG Base Excess -6 L 2 Quality Measures Quality Measures none Advance care planning discussed with:: other Assessment & Plan Assessment Current Active Medications: Generic Name Dose Route Start Last Admin Trade Name Freq PRN Reason Stop Dose Admin Acetaminophen 325 mg 08/28/24 20:28 Acetaminophen 325 Mg Tablet PO 09/27/24 20:27 Q6H PRN PAIN SCALE 1-3 (mild Albuterol/Ipratropium 3 ml 08/28/24 20:24 08/29/24 23:00 Albuterol/Ipratropium (Duoneb) Rt Janessa 3 Ml Nebu INH 09/27/24 22:59 3 ml Q4HRRT PRN Administration Wheeze Amoxicillin/Clavulanate Potassium 1 tab 08/30/24 21:00 09/02/24 08:54 Amoxicillin/Pot Clav 875 Tablet PO 09/06/24 20:59 1 tab BID JERSON Administration Folic Acid 1 mg 08/29/24 09:00 09/02/24 08:54 Folic Acid 1 Mg Tablet PO 09/28/24 08:59 1 mg QDAY JERSON Administration Octreotide Acetate 1,000 mcg/ 102 mls @ 5.1 mls/hr 08/29/24 13:47 09/02/24 10:36 Sodium Chloride IV 09/02/24 17:46 50 mcg/hr .Q20H JERSON 5.1 mls/hr Administration Protocol 50 MCG/HR Lactulose 30 gm 09/01/24 22:00 09/02/24 05:46 Lactulose Syrup 20 Gm/30 Ml Udc PO 10/01/24 21:59 Not Given TID JERSON Protocol Midodrine 5 mg 08/31/24 00:21 09/02/24 05:45 Midodrine 5 Mg Tablet PO 09/29/24 08:24 5 mg TID JERSON Administration Pantoprazole Sodium 40 mg 08/28/24 21:00 09/02/24 08:55 Pantoprazole Inj 40 Mg Vial IVP 09/27/24 20:59 40 mg BID JERSON Administration Propranolol HCl 10 mg 08/31/24 14:00 09/02/24 05:39 Propranolol 10 Mg Tablet PO 09/30/24 13:59 10 mg TID JERSON Administration Rifaximin 550 mg 08/28/24 21:00 09/02/24 08:54 Rifaximin 550 Mg Tablet PO 09/04/24 20:59 550 mg BID JERSON Administration Sodium Chloride 5 ml 08/28/24 17:29 08/28/24 18:47 Sodium Chloride Rt Janessa 0.9% 3 Ml Nebu INH 09/27/24 17:28 3 ml PRN PRN Administration SOLN Thiamine HCl 100 mg 08/28/24 20:45 09/02/24 08:54 Thiamine 100 Mg Tablet PO 09/27/24 20:44 100 mg QDAY JERSON Administration Plan Mr. Stack is a 74-year-old male with past medical history of liver cirrhosis secondary to alcohol use disorder, esophageal varices, ?Asthma/COPD, GERD, anxiety and BPH who was BIBA to [facility] emergency department from home on 08/28/2024 with a chief complaint of altered mental status. Patient will be admitted for workup and management of hepatic encephalopathy and acute blood loss anemia. 1. Altered mental status secondary to acute metabolic encephalopathy?resolving At baseline patient is conversational and oriented x 3. On admission patient was altered and ANO x 0. On exam patient's pupils reactive to light nonverbal and unresponsive to sternal rub. DDx: Hepatic encephalopathy, medication side effect, TIA CT brain was negative for hemorrhage, mass effect or midline shift Ammonia 57 Plan: ? Aspiration precautions ? Head of bed elevation ? Neurochecks every 4 hourly ? Continue lactulose 30 Mg p.o. 3 times daily ? Continue rifaximin 550 Mg p.o. twice daily ? Continue thiamine p.o. 2. Likely aspiration pneumonia Patient presented with altered mental status On exam patient has decreased air entry at the bases Chest x-ray showed trace fluid in horizontal fissure right lung. Plan: ? Continue Augmentin 1 tab p.o. twice daily started on [08/30? 3. Hypokalemia?resolved 4. Hypophosphatemia?resolved K3.1 ---> 3.5 Phos 1.9 ---> 2.7 5. Acute blood loss anemia secondary to GI bleed?resolving 6. Likely upper GI bleed secondary to esophageal varices?resolving 7. Decompensated alcoholic cirrhosis with coagulopathy and thrombocytopenia 8. Hyperbilirubinemia 9. Hepatitis C Patient was found unconscious in a pool of coffee-ground emesis On admission patient's Hb 7.6 and he received 2 units PRBC. Post H&H 7.4 T.Bili 3.8 ---> 10.4 Plt 103 Hepatitis C antibody positive [08/31/2024] EGD completed on 08/29/2024 findings include: Diffuse hypertensive portal gastropathy with mucosal oozing of blood and 1+ esophageal varices not large enough for band ligation.. Meld?NA score 23 points. 7-10% 90-day mortality. Child?Hernandez class C. 12 points. Life expectancy 1-3 years. Abdominal surgery mortality 82% Plan: ? Continue cardiac diet. ? Protonix 40 Mg IV twice daily ? Continue octreotide infusion at 50 mcg/hour to complete a total of 5 days on 09/02/2024 ? GI, Dr. Hall consulted and closely following the case. Appreciate recommendations. 10. Asthma 11. COPD Home medication Trelegy inhaler Plan: ? DuoNebs as needed 12. Low TSH 13. Low T4 TSH 0.39, T4 0.84 Likely normal based on patient age 11. Goals of care discussion [09/01/2024] spoke to next of kin, Maggy Romero over the phone at . Briefly updated her on patient's hospital course and asked her to come in today for a goals of care discussion. Ms. Romero agreed for 3 PM and said she would call if any change of plans. At baseline she says that patient is independent and can carry out all his ADLs. He also has home health who visits him 6 days a week for a total of 21 hours. Patient's next of kin did not show up today. Will reach out again tomorrow. [09/02/2024] Spoke to next of kin, Maggy Romero over the phone at . Briefly updated her on patient's hospital course and asked her to come in today for a goals of care discussion. She said she might be able to come in tomorrow for an in person visit. Offered her the options of shelter facility versus hospice. She needs more time to think about it. Health maintenance: Disposition: For goals of care with family tomorrow with regards for possible SNF versus hospice placement Diet: Cardiac Lines: pIVs GI Prophylaxis: Protonix 40 Mg IV twice daily Thrombo Prophylaxis: Contraindicated Code status: FULL CODE Plan of care discussed with Attending Dr. Mccallum and PGY3 Dr. Thierno Green MD PGY 1
[2024-09-02] MEDS: LACTULOSE SYRUP 20 GM/30 ML UDC 30 GM PO (14:22)
--- NOTE | 2024-09-02 14:57 | PC.SS ---
Addendum entered by Keyonna Saravia 09/02/24 15:06: This morning at 10:17 SS attempted to contact patient's sister, Maggy but was unsuccessful. SS left voicemail with my contact information. Again at 1:55 SS was unable to speak with Maggy by phone and SS left voicemail. Original Note: SS spoke to patient's sister, Maggy to discuss d/c options with [facility] or without [facility]. Maggy is refusing [facility]. Maggy is requesting to d/c to SNF for short term rehab not Hospice. Manuel BUCKNER also spoke to Maggy to confirm she is refusing pt to d/c with Hospice. SS has informed Coner from PT who will assess pt. SS provided Maggy with verbal choices for SNF and her choice is [facility].
--- NOTE | 2024-09-02 15:38 | PC.CC ---
PASSR Level 1 complete and downloaded. Patient meets criteria for a categorical determination. PASSR remains open at this time. Updated Keyonna, SS.
--- NOTE | 2024-09-02 16:17 | PC.SS ---
SS has sent inquiry to the local SNF using [facility]. PT notes are pending.
[2024-09-03] VITALS (15 sets, daily range): BP systolic 96–114; BP diastolic 54–78; PULSE 56–72; RESP 14–22; TEMP 36.2–36.7; O2SAT 95–100; BMI 12.0
[2024-09-03] MEDS: PROPRANOLOL 10 MG TABLET PO ×2 (05:38→20:32)
[2024-09-03] MEDS: MIDODRINE 5 MG TABLET PO ×3 (05:39→20:33)
[2024-09-03 05:41] LABS: Basophils # (Auto) 0.1 Thou/mm3 (0.0-0.2); Basophils % (Auto) 0 % (0-2.5); Eosinophils # (Auto) 0.4 Thou/mm3 (0.0-0.5); Eosinophils % (Auto) 4 % (0-10); Hematocrit 33.5 % (41.0-53.0); Hemoglobin 10.7 g/dL (13.5-16.0); Immature Granulocytes % (Auto) 0 % (0-0); Immature Granulocytes Auto 0.04 Thou/mm3 (0.00-0.00); Lymphocytes # (Auto) 1.3 Thou/mm3 (1.0-4.8); Lymphocytes % (Auto) 12 % (10-50); Mean Corpuscular HGB Conc 31.9 g/dl (31.0-37.0); Mean Corpuscular Hemoglobin 31.3 pg (25.0-35.0); Mean Corpuscular Volume 98 fL (80-100); Monocytes # (Auto) 1.2 Thou/mm3 (0.0-0.8); Monocytes % (Auto) 11 % (0-12); Neutrophils # (Auto) 8.3 Thou/mm3 (1.8-7.7); Neutrophils % (Auto) 73 % (37-80); Nucleated Red Blood Cell % 0 /100 WBC (0); Platelet Count 102 Thou/mm3 (140-440); Red Blood Count 3.42 Miln/mm3 (4.50-5.90); White Blood Count 11.3 Thou/mm3 (3.8-10.6)
[2024-09-03 06:09] LABS: Alanine Aminotransferase 41 U/L (10-49); Albumin/Globulin Ratio 0.5 (1.2-2.2); Alkaline Phosphatase 165 U/L (46-116); Anion Gap 0 (7-16); Aspartate Amino Transferase 108 U/L (0-34); BUN/Creatinine Ratio 36 Ratio (12-20); Bilirubin,Total 12.8 mg/dL (0.3-1.2); Blood Urea Nitrogen 18 mg/dL (9-23); Calcium 7.8 mg/dL (8.3-10.6); Calcium (Corrected) 9.4 mg/dL (8.5-10.1); Carbon Dioxide 26.1 mMol/L (20.0-31.0); Chloride 114 mMol/L (98-107); Creatinine (Component) 0.5 mg/dL (0.6-1.3); Estimated Creatinine Clearance 129.8 mL/min (>60); Globulin 4.4 gm/dL (2.3-3.5); Glucose 80 mg/dL (74-106); Osmolality,Calculated 280 (275-295); Phosphorous 2.2 mg/dL (2.4-5.1); Potassium 4.1 mMol/L (3.4-5.1); Sodium 140 mMol/L (136-145); Total Protein 6.4 gm/dL (5.7-8.2); eGFR > 60 See Note
--- NOTE | 2024-09-03 09:12 | PC.SS ---
Follow up note: SS communicated with Nelly at [facility] about accepting pt. Nelly from [facility] is requesting to do an onsite evaluation before accepting pt.
[2024-09-03] MEDS: PANTOPRAZOLE INJ 40 MG VIAL IVP ×2 (10:05→20:33)
[2024-09-03] MEDS: FOLIC ACID 1 MG TABLET PO (10:06)
[2024-09-03] MEDS: rifaximin 550 MG TABLET PO ×2 (10:06→20:33)
[2024-09-03] MEDS: THIAMINE 100 MG TABLET PO (10:06)
[2024-09-03] MEDS: AMOXICILLIN/POT CLAV 875 TABLET 1 TAB PO ×2 (10:09→20:33)
--- NOTE | 2024-09-03 11:33 | ESPR_ITS ---
Documentation for date of: 09/03/24 Subjective Subjective Interval history: Patient evaluated Still sleepy Exam Vital Signs Temp Pulse Resp BP Pulse Ox O2 Del Method O2 Flow Rate 97.3 F 68 20 104/67 95 Nasal Cannula 2 09/03/24 07:59 09/03/24 07:59 09/03/24 07:59 09/03/24 07:59 09/03/24 07:59 09/03/24 07:59 09/03/24 07:59 Objective Labs 09/04/24 05:18 09/04/24 05:18 Labs: Laboratory Results - last 24 hr 09/03/24 04:46 WBC 11.3 H RBC 3.42 L Hgb 10.7 L Hct 33.5 L MCV 98 MCH 31.3 MCHC 31.9 RDW Std Deviation 72.0 H Plt Count 102 L Neut % (Auto) 73 Lymph % (Auto) 12 [place] % (Auto) 11 Eos % (Auto) 4 Baso % (Auto) 0 Neut # (Auto) 8.3 H Lymph # (Auto) 1.3 [place] # (Auto) 1.2 H Eos # (Auto) 0.4 Baso # (Auto) 0.1 Immature Gran # (Auto) 0.04 H Absolute Nucleated RBC 0.00 Immature Gran % 0 Nucleated RBC % 0 Sodium 140 Potassium 4.1 D Chloride 114 H Carbon Dioxide 26.1 Anion Gap 0 L BUN 18 Creatinine 0.5 L Estim Creat Clear Calc 129.8 eGFR > 60 BUN/Creatinine Ratio 36 H Glucose 80 D Calculated Osmolality 280 Calcium 7.8 L Corrected Calcium 9.4 Phosphorus 2.2 L Magnesium 2.0 Total Bilirubin 12.8 H D AST 108 H ALT 41 Alkaline Phosphatase 165 H Total Protein 6.4 Albumin 2.0 L Globulin 4.4 H Albumin/Globulin Ratio 0.5 L Impressions Impression: Hepatic encephalopathy Upper GI bleed Continue present treatment ABG Interpretation ABG results: 08/28/24 08/29/24 22:40 10:05 ABG pH 7.41 7.50 H ABG pCO2 29 L 33 ABG pO2 69 L 63 L ABG HCO3 18 L 25 ABG O2 Saturation 94 94 ABG Base Excess -6 L 2 Assessment & Plan A&P Narrative # Acute upper GI bleed in the form of melena # Acute posthemorrhagic anemia # Acute hepatic encephalopathy # Chronic liver disease with thrombocytopenia abnormal liver function test and coagulopathy secondary to alcohol Plan Agree with the blood transfusion give patient 2 units of PRBC Octreotide infusion Lactulose and Xifaxan Consent will be obtained from the sister who makes that decision for fiberoptic esophagogastroduodenoscopy with possible therapeutic intervention under intravenous moderate sedation Prognosis guarded Thank you for the opportunity to participate in the care of this patient Time Spent With Patient Time: Total time spent is greater than 50% in coordination of care (as documented) at patient's floor/unit and/or counseling patient:
--- NOTE | 2024-09-03 13:24 | ESPR_ITS ---
<Statement entered by Checo Ignacio MD - 09/04/24 17:58> I discussed with and supervised the r d intern physician involved in the care of this patient. Patient assessment and plan was discussed with entire medicine team, including my attending. I agree with the assessment and plan as documented by r d intern doctor. Patient care was discussed with my attending physician Dr. Cierra Ignacio, PGY-2 Documentation for date of: 09/03/24 Subjective Subjective Interval history: Patient was seen and examined at bedside this AM. No acute exents overnight. Patient tolerating diet, adequate urine output and mentation is, oriented to person Patient still confused, but oriented to person, place and president. Patient's sister, Maggy and nephew seen at bedside today. Updated on patient's current hospital course and treatment regime. All questions asked were answered and addressed appropriately. Exam Vital Signs Temp Pulse Resp BP Pulse Ox O2 Del Method O2 Flow Rate 97.2 F 57 L 14 99/54 L 98 Nasal Cannula 1 09/03/24 11:56 09/03/24 12:00 09/03/24 11:56 09/03/24 11:56 09/03/24 11:56 09/03/24 11:56 09/03/24 11:56 Narrative Exam Constitutional Alert, oriented x 2 [person and place] and comfortable. Elderly male on bilateral soft wrist restraints HEENT Vision grossly intact. Patent nares. Trachea midline Respiratory Chest normal on inspection and clear auscultation bilaterally Cardiovascular S1 and S2 audible, RRR. No murmurs carotid bruit. No gross JVD. Abdominal Soft and non tender to palpation in all quadrants. BS + Genitourinary No bladder tenderness, no flank pain. Normal to palpation Musculoskeletal Extremities tone within normal limits. No LE edema. Neurological CN II - XII grossly intact. Extremity motor and sensation grossly intact. Skin Warm, dry and intact. No apparent lesions. Psychiatric Patient has good affect, is cooperative Objective Labs 09/04/24 05:18 09/04/24 05:18 Labs: Laboratory Results - last 24 hr 09/03/24 04:46 WBC 11.3 H RBC 3.42 L Hgb 10.7 L Hct 33.5 L MCV 98 MCH 31.3 MCHC 31.9 RDW Std Deviation 72.0 H Plt Count 102 L Neut % (Auto) 73 Lymph % (Auto) 12 [place] % (Auto) 11 Eos % (Auto) 4 Baso % (Auto) 0 Neut # (Auto) 8.3 H Lymph # (Auto) 1.3 [place] # (Auto) 1.2 H Eos # (Auto) 0.4 Baso # (Auto) 0.1 Immature Gran # (Auto) 0.04 H Absolute Nucleated RBC 0.00 Immature Gran % 0 Nucleated RBC % 0 Sodium 140 Potassium 4.1 D Chloride 114 H Carbon Dioxide 26.1 Anion Gap 0 L BUN 18 Creatinine 0.5 L Estim Creat Clear Calc 129.8 eGFR > 60 BUN/Creatinine Ratio 36 H Glucose 80 D Calculated Osmolality 280 Calcium 7.8 L Corrected Calcium 9.4 Phosphorus 2.2 L Magnesium 2.0 Total Bilirubin 12.8 H D AST 108 H ALT 41 Alkaline Phosphatase 165 H Total Protein 6.4 Albumin 2.0 L Globulin 4.4 H Albumin/Globulin Ratio 0.5 L ABG Interpretation ABG results: 08/28/24 08/29/24 22:40 10:05 ABG pH 7.41 7.50 H ABG pCO2 29 L 33 ABG pO2 69 L 63 L ABG HCO3 18 L 25 ABG O2 Saturation 94 94 ABG Base Excess -6 L 2 Quality Measures Quality Measures none Advance care planning discussed with:: patient Assessment & Plan Assessment Current Active Medications: Generic Name Dose Route Start Last Admin Trade Name Freq PRN Reason Stop Dose Admin Acetaminophen 325 mg 08/28/24 20:28 Acetaminophen 325 Mg Tablet PO 09/27/24 20:27 Q6H PRN PAIN SCALE 1-3 (mild Albuterol/Ipratropium 3 ml 08/28/24 20:24 08/29/24 23:00 Albuterol/Ipratropium (Duoneb) Rt Janessa 3 Ml Nebu INH 09/27/24 22:59 3 ml Q4HRRT PRN Administration Wheeze Amoxicillin/Clavulanate Potassium 1 tab 08/30/24 21:00 09/03/24 10:09 Amoxicillin/Pot Clav 875 Tablet PO 09/06/24 20:59 1 tab BID JERSON Administration Folic Acid 1 mg 08/29/24 09:00 09/03/24 10:06 Folic Acid 1 Mg Tablet PO 09/28/24 08:59 1 mg QDAY JERSON Administration Lactulose 30 gm 09/03/24 21:00 Lactulose Syrup 20 Gm/30 Ml Udc PO 10/03/24 20:59 BID JERSON Protocol Midodrine 5 mg 08/31/24 00:21 09/03/24 05:39 Midodrine 5 Mg Tablet PO 09/29/24 08:24 5 mg TID JERSON Administration Pantoprazole Sodium 40 mg 08/28/24 21:00 09/03/24 10:05 Pantoprazole Inj 40 Mg Vial IVP 09/27/24 20:59 40 mg BID JERSON Administration Propranolol HCl 10 mg 08/31/24 14:00 09/03/24 05:38 Propranolol 10 Mg Tablet PO 09/30/24 13:59 10 mg TID JERSON Administration Rifaximin 550 mg 08/28/24 21:00 09/03/24 10:06 Rifaximin 550 Mg Tablet PO 09/04/24 20:59 550 mg BID JERSON Administration Sodium Chloride 5 ml 08/28/24 17:29 08/28/24 18:47 Sodium Chloride Rt Janessa 0.9% 3 Ml Nebu INH 09/27/24 17:28 3 ml PRN PRN Administration SOLN Thiamine HCl 100 mg 08/28/24 20:45 09/03/24 10:06 Thiamine 100 Mg Tablet PO 09/27/24 20:44 100 mg QDAY JERSON Administration Plan Mr. Stack is a 74-year-old male with past medical history of liver cirrhosis secondary to alcohol use disorder, esophageal varices, ?Asthma/COPD, GERD, anxiety and BPH who was BIBA to [facility] emergency department from home on 08/28/2024 with a chief complaint of altered mental status. Patient will be admitted for workup and management of hepatic encephalopathy and acute blood loss anemia. 1. Altered mental status secondary to acute metabolic encephalopathy?resolving At baseline patient is conversational and oriented x 3. On admission patient was altered and ANO x 0. On exam patient's pupils reactive to light nonverbal and unresponsive to sternal rub. DDx: Hepatic encephalopathy, medication side effect, TIA CT brain was negative for hemorrhage, mass effect or midline shift Ammonia 57 Patient had 11 bowel movements yesterday. Will decrease lactulose dose Plan: ? Aspiration precautions ? Head of bed elevation ? Neurochecks every 4 hourly ? Decrease lactulose to 30 Mg p.o. twice daily ? Continue rifaximin 550 Mg p.o. twice daily ? Continue thiamine p.o. 2. Likely aspiration pneumonia Patient presented with altered mental status On exam patient has decreased air entry at the bases Chest x-ray showed trace fluid in horizontal fissure right lung. Plan: ? Continue Augmentin 1 tab p.o. twice daily started on [08/30? 3. Hypokalemia?resolved 4. Hypophosphatemia?resolved K3.1 ---> 3.5 Phos 1.9 ---> 2.7 5. Acute blood loss anemia secondary to GI bleed?resolving 6. Likely upper GI bleed secondary to esophageal varices?resolving 7. Decompensated alcoholic cirrhosis with coagulopathy and thrombocytopenia 8. Hyperbilirubinemia 9. Hepatitis C Patient was found unconscious in a pool of coffee-ground emesis On admission patient's Hb 7.6 and he received 2 units PRBC. Post H&H 7.4 T.Bili 3.8 ---> 12.8 Plt 103 Hepatitis C antibody positive [08/31/2024] EGD completed on 08/29/2024 findings include: Diffuse hypertensive portal gastropathy with mucosal oozing of blood and 1+ esophageal varices not large enough for band ligation.. Meld?NA score 23 points. 7-10% 90-day mortality. Child?Hernandez class C. 12 points. Life expectancy 1-3 years. Abdominal surgery mortality 82% Plan: ? Continue cardiac diet. ? Protonix 40 Mg IV twice daily ? Continue octreotide infusion at 50 mcg/hour to complete a total of 5 days on 09/02/2024 ? GI, Dr. Hall consulted and closely following the case. Appreciate recommendations. 10. Asthma 11. COPD Home medication Trelegy inhaler Plan: ? VBG ordered schedule appointment ? DuoNebs as needed 12. Low TSH 13. Low T4 TSH 0.39, T4 0.84 Likely normal based on patient age 11. Goals of care discussion - SNF [09/01/2024] spoke to next of kin, Maggy Romero over the phone at . Briefly updated her on patient's hospital course and asked her to come in today for a goals of care discussion. Ms. Romero agreed for 3 PM and said she would call if any change of plans. At baseline she says that patient is independent and can carry out all his ADLs. He also has home health who visits him 6 days a week for a total of 21 hours. Patient's next of kin did not show up today. Will reach out again tomorrow. [09/02/2024] Spoke to next of kin, Maggy Romero over the phone at . Briefly updated her on patient's hospital course and asked her to come in today for a goals of care discussion. She said she might be able to come in tomorrow for an in person visit. Offered her the options of [facility] facility versus hospice. She needs more time to think about it. [09/03/2024] Spoke to next of kin, Maggy Romero and her son at bedside. They expressed their wishes for [facility]. All questions asked were answered and concerns addressed. Health maintenance: Disposition: Pending SNF once off of restraints for 24 hours. Diet: Cardiac Lines: pIVs GI Prophylaxis: Pantoprazole Thrombo Prophylaxis: None Code status: FULL CODE Plan of care discussed with Attending Dr. Lynn and PGY2 Dr. Sandee Green MD PGY 1 Attending Provider Attestation/Addendum I attest that I was physically present for the evaluation, physical examination, lab and imaging review of the patient with the residents. I discussed the case with the residents and agree with the findings and plans of care as documented above. At bedside, patient appears confused and sleepy. Able to be aroused, oriented x 2. She had 11 bowel movements yesterday, we will decrease his lactulose dosing to 30 mg twice daily. We will continue with rifaximin 500 mg twice daily. We will continue with the neurochecks. Continues to be on Augmentin from aspiration pneumonia. Saturating well on room air. Hemoglobin has been stable. PT recommended SNF placement for further physical therapy. Noted to have high bilirubin, PT/INR, and low albumin. We will continue to monitor closely with goal of more than 3 bowel movements per day. Mike Lynn MD
[2024-09-03 15:41] LABS: Base Excess, Venous 4 (-3-3); O2 Saturation, Venous 50 % (96-97); PCO2, Venous 47 mmHg (36-56); PO2, Venous 30 mmHg (15-58); pH, Venous 7.41 (7.33-7.66)
[2024-09-03] MEDS: LACTULOSE SYRUP 20 GM/30 ML UDC 30 GM PO (20:32)
[2024-09-04] VITALS (14 sets, daily range): BP systolic 103–120; BP diastolic 53–75; PULSE 25–76; RESP 15–221; TEMP 36.2–36.6; O2SAT 93–99; BMI 24.5
[2024-09-04] MEDS: MIDODRINE 5 MG TABLET PO ×3 (05:23→20:15)
[2024-09-04 05:41] LABS: Basophils % (Auto) 0 % (0-2.5); Eosinophils # (Auto) 0.4 Thou/mm3 (0.0-0.5); Eosinophils % (Auto) 4 % (0-10); Hemoglobin 10.2 g/dL (13.5-16.0); Immature Granulocytes % (Auto) 0 % (0-0); Immature Granulocytes Auto 0.04 Thou/mm3 (0.00-0.00); Lymphocytes # (Auto) 1.1 Thou/mm3 (1.0-4.8); Lymphocytes % (Auto) 12 % (10-50); Mean Corpuscular HGB Conc 32.9 g/dl (31.0-37.0); Mean Corpuscular Hemoglobin 31.9 pg (25.0-35.0); Mean Corpuscular Volume 97 fL (80-100); Monocytes # (Auto) 1.2 Thou/mm3 (0.0-0.8); Monocytes % (Auto) 12 % (0-12); Neutrophils # (Auto) 6.7 Thou/mm3 (1.8-7.7); Neutrophils % (Auto) 71 % (37-80); Nucleated Red Blood Cell % 0 /100 WBC (0); Platelet Count 88 Thou/mm3 (140-440); RDW Standard Deviation 71.9 fL (35.1-43.9); White Blood Count 9.4 Thou/mm3 (3.8-10.6)
[2024-09-04 06:24] LABS: Alanine Aminotransferase 36 U/L (10-49); Albumin, Serum 1.8 gm/dL (3.4-4.8); Albumin/Globulin Ratio 0.4 (1.2-2.2); Alkaline Phosphatase 157 U/L (46-116); Anion Gap 4 (7-16); Aspartate Amino Transferase 89 U/L (0-34); BUN/Creatinine Ratio 32 Ratio (12-20); Bilirubin,Total 12.5 mg/dL (0.3-1.2); Blood Urea Nitrogen 16 mg/dL (9-23); Calcium 7.3 mg/dL (8.3-10.6); Calcium (Corrected) 9.1 mg/dL (8.5-10.1); Carbon Dioxide 27.4 mMol/L (20.0-31.0); Chloride 108 mMol/L (98-107); Creatinine (Component) 0.5 mg/dL (0.6-1.3); Estimated Creatinine Clearance 129.8 mL/min (>60); Globulin 4.1 gm/dL (2.3-3.5); Glucose 75 mg/dL (74-106); Osmolality,Calculated 277 (275-295); Phosphorous 1.7 mg/dL (2.4-5.1); Potassium 4.1 mMol/L (3.4-5.1); Sodium 139 mMol/L (136-145); Total Protein 5.9 gm/dL (5.7-8.2); eGFR > 60 See Note
[2024-09-04] MEDS: THIAMINE 100 MG TABLET PO (09:29)
[2024-09-04] MEDS: PROPRANOLOL 10 MG TABLET PO ×2 (09:30→20:13)
[2024-09-04] MEDS: FOLIC ACID 1 MG TABLET PO (09:31)
[2024-09-04] MEDS: PANTOPRAZOLE INJ 40 MG VIAL IVP ×2 (09:31→20:12)
[2024-09-04] MEDS: AMOXICILLIN/POT CLAV 875 TABLET 1 TAB PO ×2 (09:31→20:12)
[2024-09-04] MEDS: rifaximin 550 MG TABLET PO ×2 (09:31→20:12)
[2024-09-04] MEDS: SOD PHOS ADDITIVE 30 MMOL in SODIUM CHLORIDE 0.9% 500 ML 500 ML 62.5 MMOL IV (09:33)
--- NOTE | 2024-09-04 10:54 | ESPR_ITS ---
<Statement entered by Checo Ignacio MD - 09/05/24 07:56> Patient needs to be off restraints for 24 hours prior to d/c to SNF. I discussed with and supervised the commissioner of internal revenue physician involved in the care of this patient. Patient assessment and plan was discussed with entire medicine team, including my attending. I agree with the assessment and plan as documented by commissioner of internal revenue doctor. Patient care was discussed with my attending physician Dr. Leah Ignacio, PGY-2 Documentation for date of: 09/04/24 Subjective Subjective Interval history: Patient was seen and examined at bedside this AM. No acute exents overnight. Patient tolerating diet, adequate urine output and mentation is, oriented to person Patient still confused, but oriented to person. Patient had 2 bowel movements in past 24 hours. Increase lactulose to 30G p.o. 4 times daily. Phos 1.7. Repleted with sodium Phos 30 mEq IV x 1 Exam Vital Signs Temp Pulse Resp BP Pulse Ox O2 Del Method O2 Flow Rate 97.3 F 76 16 109/57 L 95 Nasal Cannula 1 09/04/24 08:00 09/04/24 09:30 09/04/24 08:00 09/04/24 09:30 09/04/24 08:00 09/04/24 08:00 09/04/24 07:45 Narrative Exam Constitutional Alert, oriented x 1 [person ] and comfortable. Elderly male on bilateral soft wrist restraints HEENT Vision grossly intact. Patent nares. Trachea midline Respiratory Chest normal on inspection and clear auscultation bilaterally Cardiovascular S1 and S2 audible, RRR. No murmurs carotid bruit. No gross JVD. Abdominal Soft and non tender to palpation in all quadrants. BS + Genitourinary No bladder tenderness, no flank pain. Normal to palpation Musculoskeletal Extremities tone within normal limits. No LE edema. Neurological CN II - XII grossly intact. Extremity motor and sensation grossly intact. Skin Warm, dry and intact. No apparent lesions. Psychiatric Patient has good affect, is cooperative Objective Labs 09/04/24 05:18 09/04/24 05:18 Labs: Laboratory Results - last 24 hr 09/03/24 09/04/24 15:24 05:18 WBC 9.4 RBC 3.20 L Hgb 10.2 L Hct 31.0 L MCV 97 MCH 31.9 MCHC 32.9 RDW Std Deviation 71.9 H Plt Count 88 L Neut % (Auto) 71 Lymph % (Auto) 12 [place] % (Auto) 12 Eos % (Auto) 4 Baso % (Auto) 0 Neut # (Auto) 6.7 Lymph # (Auto) 1.1 [place] # (Auto) 1.2 H Eos # (Auto) 0.4 Baso # (Auto) 0.0 Immature Gran # (Auto) 0.04 H Absolute Nucleated RBC 0.00 Immature Gran % 0 Nucleated RBC % 0 VBG pH 7.41 VBG pCO2 47 VBG pO2 30 VBG O2 Sat ([place]) 50 L VBG Base Excess 4 H Sodium 139 Potassium 4.1 Chloride 108 H Carbon Dioxide 27.4 Anion Gap 4 L BUN 16 Creatinine 0.5 L Estim Creat Clear Calc 129.8 eGFR > 60 BUN/Creatinine Ratio 32 H Glucose 75 Calculated Osmolality 277 Calcium 7.3 L Corrected Calcium 9.1 Phosphorus 1.7 L Magnesium 2.0 Total Bilirubin 12.5 H AST 89 H ALT 36 Alkaline Phosphatase 157 H Total Protein 5.9 Albumin 1.8 L Globulin 4.1 H Albumin/Globulin Ratio 0.4 L ABG Interpretation ABG results: 08/28/24 08/29/24 09/03/24 22:40 10:05 15:24 ABG pH 7.41 7.50 H ABG pCO2 29 L 33 ABG pO2 69 L 63 L ABG HCO3 18 L 25 ABG O2 Saturation 94 94 ABG Base Excess -6 L 2 VBG pH 7.41 VBG pCO2 47 VBG pO2 30 VBG Base Excess 4 H Quality Measures Quality Measures none Advance care planning discussed with:: sibling Assessment & Plan Assessment Current Active Medications: Generic Name Dose Route Start Last Admin Trade Name Freq PRN Reason Stop Dose Admin Acetaminophen 325 mg 08/28/24 20:28 Acetaminophen 325 Mg Tablet PO 09/27/24 20:27 Q6H PRN PAIN SCALE 1-3 (mild Albuterol/Ipratropium 3 ml 08/28/24 20:24 08/29/24 23:00 Albuterol/Ipratropium (Duoneb) Rt Janessa 3 Ml Nebu INH 09/27/24 22:59 3 ml Q4HRRT PRN Administration Wheeze Amoxicillin/Clavulanate Potassium 1 tab 08/30/24 21:00 09/04/24 09:31 Amoxicillin/Pot Clav 875 Tablet PO 09/06/24 20:59 1 tab BID JERSON Administration Folic Acid 1 mg 08/29/24 09:00 09/04/24 09:31 Folic Acid 1 Mg Tablet PO 09/28/24 08:59 1 mg QDAY JERSON Administration Sodium Phosphate 30 mmol/ 510 mls @ 62.5 mls/hr 09/04/24 07:55 09/04/24 09:33 Sodium Chloride IV 09/04/24 16:04 62.5 mls/hr X1 ONE Administration Lactulose 30 gm 09/04/24 12:00 Lactulose Syrup 20 Gm/30 Ml Udc PO 10/04/24 11:59 QID JERSON Protocol Midodrine 5 mg 08/31/24 00:21 09/04/24 05:23 Midodrine 5 Mg Tablet PO 09/29/24 08:24 5 mg TID JERSON Administration Pantoprazole Sodium 40 mg 08/28/24 21:00 09/04/24 09:31 Pantoprazole Inj 40 Mg Vial IVP 09/27/24 20:59 40 mg BID JERSON Administration Propranolol HCl 10 mg 09/03/24 21:00 09/04/24 09:30 Propranolol 10 Mg Tablet PO 10/03/24 20:59 10 mg BID JERSON Administration Rifaximin 550 mg 08/28/24 21:00 09/04/24 09:31 Rifaximin 550 Mg Tablet PO 09/10/24 20:59 550 mg BID JERSON Administration Sodium Chloride 5 ml 08/28/24 17:29 08/28/24 18:47 Sodium Chloride Rt Janessa 0.9% 3 Ml Nebu INH 09/27/24 17:28 3 ml PRN PRN Administration SOLN Thiamine HCl 100 mg 08/28/24 20:45 09/04/24 09:29 Thiamine 100 Mg Tablet PO 09/27/24 20:44 100 mg QDAY JERSON Administration Plan Mr. Stack is a 74-year-old male with past medical history of liver cirrhosis secondary to alcohol use disorder, esophageal varices, ?Asthma/COPD, GERD, anxiety and BPH who was BIBA to [facility] emergency department from home on 08/28/2024 with a chief complaint of altered mental status. Patient will be admitted for workup and management of hepatic encephalopathy and acute blood loss anemia. 1. Altered mental status secondary to acute metabolic encephalopathy At baseline patient is conversational and oriented x 3. On admission patient was altered and ANO x 0. On exam patient's pupils reactive to light nonverbal and unresponsive to sternal rub. DDx: Hepatic encephalopathy, medication side effect, TIA CT brain was negative for hemorrhage, mass effect or midline shift Ammonia 57 Patient still confused, but oriented to person. Patient had 2 bowel movements in past 24 hours. Increase lactulose to 30G p.o. 4 times daily. Plan: ? Aspiration precautions ? Head of bed elevation ? Neurochecks every 4 hourly ? Increased lactulose to 30G p.o. 4 times daily. ? Continue rifaximin 550 Mg p.o. twice daily ? Continue thiamine p.o. 2. Likely aspiration pneumonia Patient presented with altered mental status On exam patient has decreased air entry at the bases Chest x-ray showed trace fluid in horizontal fissure right lung. Plan: ? Continue Augmentin 1 tab p.o. twice daily started on [08/30? 3. Hypokalemia?resolved 4. Hypophosphatemia K3.1 ---> 3.5 Phos 1.7 Plan: ? Repleted with sodium phosphate 30 mEq IV x 1 5. Acute blood loss anemia secondary to GI bleed?resolving 6. Likely upper GI bleed secondary to esophageal varices?resolving 7. Decompensated alcoholic cirrhosis with coagulopathy and thrombocytopenia 8. Hyperbilirubinemia 9. Hepatitis C Patient was found unconscious in a pool of coffee-ground emesis On admission patient's Hb 7.6 and he received 2 units PRBC. Post H&H 7.4 T.Bili 3.8 ---> 12.5 Plt 103 Hepatitis C antibody positive [08/31/2024] EGD completed on 08/29/2024 findings include: Diffuse hypertensive portal gastropathy with mucosal oozing of blood and 1+ esophageal varices not large enough for band ligation.. Meld?NA score 23 points. 7-10% 90-day mortality. Child?Hernandez class C. 12 points. Life expectancy 1-3 years. Abdominal surgery mortality 82% Completed 5 days of octreotide infusion from [08/29 - 09/02] Plan: ? Continue cardiac diet. ? Continue Protonix 40 Mg IV twice daily ? GI, Dr. Hall consulted and closely following the case. Appreciate recommendations. 10. Asthma 11. COPD Home medication Trelegy inhaler pCO2 47 Plan: ? DuoNebs as needed 12. Low TSH 13. Low T4 TSH 0.39, T4 0.84 Likely normal based on patient age 11. Goals of care discussion - SNF [09/01/2024] spoke to next of kin, Maggy Romero over the phone at [phone]. Briefly updated her on patient's hospital course and asked her to come in today for a goals of care discussion. Ms. Romero agreed for 3 PM and said she would call if any change of plans. At baseline she says that patient is independent and can carry out all his ADLs. He also has home health who visits him 6 days a week for a total of 21 hours. Patient's next of kin did not show up today. Will reach out again tomorrow. [09/02/2024] Spoke to next of kin, Maggy Romero over the phone at [phone]. Briefly updated her on patient's hospital course and asked her to come in today for a goals of care discussion. She said she might be able to come in tomorrow for an in person visit. Offered her the options of long term facility versus hospice. She needs more time to think about it. [09/03/2024] Spoke to next of kin, Maggy Romero and her son at bedside. They expressed their wishes for long term. All questions asked were answered and concerns addressed. Health maintenance: Disposition: Pending SNF once off of restraints for 24 hours. Diet: Cardiac Lines: pIVs GI Prophylaxis: Pantoprazole Thrombo Prophylaxis: None Code status: FULL CODE Plan of care discussed with Attending Dr. Lynn and PGY2 Dr. Sandee Green MD PGY 1 Attending Provider Attestation/Addendum I attest that I was physically present for the evaluation, physical examination, lab and imaging review of the patient with the residents. I discussed the case with the residents and agree with the findings and plans of care as documented above. At bedside today, patient appears more confused compared to yesterday. Lab results did not show any significant changes compared to yesterday. With decreasing dosing for lactulose, patient only had 2 bowel movements in last 24 hours, we will increase the dosing to 30 g p.o. 4 times daily. We will continue with rifaximin, thiamine, folate and frequent neurochecks. Continues to be on Augmentin for aspiration pneumonia. Mike Lynn MD
--- NOTE | 2024-09-04 12:19 | PC.SS ---
SS spoke to bedside nurse, Chago who explained pt has been off restraints since this morning. MARIEL has sent updated inquiry to [facility] using [email or web address]. SS has also spoken to Zaina at [facility] and they will provide authorization to [facility] for tomorrow if they accept.
[2024-09-04] MEDS: LACTULOSE SYRUP 20 GM/30 ML UDC 30 GM PO ×3 (14:57→20:12)
--- NOTE | 2024-09-04 20:57 | PD.IMPROG ---
Documentation for date of: 09/04/24 Subjective Subjective Interval history: Patient evaluated hemoglobin hematocrit 10.2 and 31.0 Exam Vital Signs Temp Pulse Resp BP Pulse Ox O2 Del Method O2 Flow Rate 97.1 F 68 15 105/53 L 99 Nasal Cannula 1 09/04/24 16:00 09/04/24 20:15 09/04/24 18:34 09/04/24 20:15 09/04/24 18:34 09/04/24 16:00 09/04/24 18:34 Objective Labs 09/04/24 05:18 09/04/24 05:18 Labs: Laboratory Results - last 24 hr 09/04/24 05:18 WBC 9.4 RBC 3.20 L Hgb 10.2 L Hct 31.0 L MCV 97 MCH 31.9 MCHC 32.9 RDW Std Deviation 71.9 H Plt Count 88 L Neut % (Auto) 71 Lymph % (Auto) 12 [place] % (Auto) 12 Eos % (Auto) 4 Baso % (Auto) 0 Neut # (Auto) 6.7 Lymph # (Auto) 1.1 [place] # (Auto) 1.2 H Eos # (Auto) 0.4 Baso # (Auto) 0.0 Immature Gran # (Auto) 0.04 H Absolute Nucleated RBC 0.00 Immature Gran % 0 Nucleated RBC % 0 Sodium 139 Potassium 4.1 Chloride 108 H Carbon Dioxide 27.4 Anion Gap 4 L BUN 16 Creatinine 0.5 L Estim Creat Clear Calc 129.8 eGFR > 60 BUN/Creatinine Ratio 32 H Glucose 75 Calculated Osmolality 277 Calcium 7.3 L Corrected Calcium 9.1 Phosphorus 1.7 L Magnesium 2.0 Total Bilirubin 12.5 H AST 89 H ALT 36 Alkaline Phosphatase 157 H Total Protein 5.9 Albumin 1.8 L Globulin 4.1 H Albumin/Globulin Ratio 0.4 L Impressions Impression: 1 acute upper GI bleed secondary to mucosal oozing of blood 2 hepatic encephalopathy Continue current management ABG Interpretation ABG results: 08/28/24 08/29/24 09/03/24 22:40 10:05 15:24 ABG pH 7.41 7.50 H ABG pCO2 29 L 33 ABG pO2 69 L 63 L ABG HCO3 18 L 25 ABG O2 Saturation 94 94 ABG Base Excess -6 L 2 VBG pH 7.41 VBG pCO2 47 VBG pO2 30 VBG Base Excess 4 H Assessment & Plan A&P Narrative # Acute upper GI bleed in the form of melena # Acute posthemorrhagic anemia # Acute hepatic encephalopathy # Chronic liver disease with thrombocytopenia abnormal liver function test and coagulopathy secondary to alcohol Plan Agree with the blood transfusion give patient 2 units of PRBC Octreotide infusion Lactulose and Xifaxan Consent will be obtained from the sister who makes that decision for fiberoptic esophagogastroduodenoscopy with possible therapeutic intervention under intravenous moderate sedation Prognosis guarded Thank you for the opportunity to participate in the care of this patient Time Spent With Patient Time: Total time spent is greater than 50% in coordination of care (as documented) at patient's floor/unit and/or counseling patient:
[2024-09-05] VITALS (13 sets, daily range): BP systolic 103–123; BP diastolic 65–68; PULSE 66–97; RESP 15–95; TEMP 36.4–36.9; O2SAT 90–98; BMI 12.0
[2024-09-05] MEDS: LACTULOSE SYRUP 20 GM/30 ML UDC 30 GM PO ×4 (05:25→21:13)
[2024-09-05] MEDS: MIDODRINE 5 MG TABLET PO ×3 (05:26→21:12)
--- NOTE | 2024-09-05 09:08 | PC.SS ---
Addendum entered by Keyonna Saravia 09/05/24 12:24: SS spoke to patient's sister, Maggy by phone and informed her [facility] has declined. SS provided Maggy with [facility] SNF options [facility] at [facility], [facility], and [facility]. Sister, Maggy's choice is [facility]. SS spoke to Lauren at [facility] and they will do an onsite with pt. SS also spoke to patient's nephew, Ander (who was with Maggy). Per Ander, pt at home is alert and oriented and ambulating independent. Ander explained pt being confused or Altered is not his baseline. Ander is requesting to speak with the attending physician. Dr. Lynn is aware. Maggy and Ander are aware if pt does not d/c today he can also d/c over the weekend as long as [facility] has provided insurance authorization to [facility]. MARIEL reviewed Medicare Rights with Ander and provided Tabitha's phone#. Ander is aware if family appeals with Tabitha SS unable to guarantee [facility] or SNF will accept the day appeal outcome is determined. SS was informed by Lauren at [facility] they will accept pt. Original Note: Follow up note: has sent [facility] updated inquiry including information about pt being off restraints since yesterday at 9am using [employer]. has also sent updated information to the local SNF using [employer]. Nelly from [facility] has confirmed inquiry was accepted and is being reviewed.
[2024-09-05] MEDS: PROPRANOLOL 10 MG TABLET PO ×2 (10:08→21:11)
[2024-09-05] MEDS: PANTOPRAZOLE INJ 40 MG VIAL IVP ×2 (10:09→21:12)
[2024-09-05] MEDS: THIAMINE 100 MG TABLET PO (10:09)
[2024-09-05] MEDS: FOLIC ACID 1 MG TABLET PO (10:09)
[2024-09-05] MEDS: AMOXICILLIN/POT CLAV 875 TABLET 1 TAB PO ×2 (10:09→21:11)
[2024-09-05] MEDS: rifaximin 550 MG TABLET PO ×2 (10:09→21:12)
[2024-09-05 17:02] LABS: Basophils % (Auto) 0 % (0-2.5); Eosinophils # (Auto) 0.3 Thou/mm3 (0.0-0.5); Eosinophils % (Auto) 3 % (0-10); Hematocrit 31.6 % (41.0-53.0); Hemoglobin 10.5 g/dL (13.5-16.0); Immature Granulocytes % (Auto) 1 % (0-0); Immature Granulocytes Auto 0.05 Thou/mm3 (0.00-0.00); Lymphocytes # (Auto) 1.3 Thou/mm3 (1.0-4.8); Lymphocytes % (Auto) 13 % (10-50); Mean Corpuscular HGB Conc 33.2 g/dl (31.0-37.0); Mean Corpuscular Hemoglobin 31.9 pg (25.0-35.0); Mean Corpuscular Volume 96 fL (80-100); Monocytes # (Auto) 1.2 Thou/mm3 (0.0-0.8); Monocytes % (Auto) 12 % (0-12); Neutrophils # (Auto) 7.2 Thou/mm3 (1.8-7.7); Neutrophils % (Auto) 72 % (37-80); Nucleated Red Blood Cell % 0 /100 WBC (0); Platelet Count 117 Thou/mm3 (140-440); RDW Standard Deviation 72.8 fL (35.1-43.9); Red Blood Count 3.29 Miln/mm3 (4.50-5.90)
[2024-09-05 18:03] LABS: Alanine Aminotransferase 45 U/L (10-49); Albumin, Serum 1.9 gm/dL (3.4-4.8); Albumin/Globulin Ratio 0.4 (1.2-2.2); Alkaline Phosphatase 168 U/L (46-116); Anion Gap 5 (7-16); Aspartate Amino Transferase 111 U/L (0-34); BUN/Creatinine Ratio 23 Ratio (12-20); Bilirubin,Total 15.1 mg/dL (0.3-1.2); Blood Urea Nitrogen 18 mg/dL (9-23); Calcium 7.5 mg/dL (8.3-10.6); Calcium (Corrected) 9.2 mg/dL (8.5-10.1); Carbon Dioxide 26.6 mMol/L (20.0-31.0); Chloride 106 mMol/L (98-107); Creatinine (Component) 0.8 mg/dL (0.6-1.3); Estimated Creatinine Clearance 81.1 mL/min (>60); Globulin 4.5 gm/dL (2.3-3.5); Glucose 134 mg/dL (74-106); Osmolality,Calculated 279 (275-295); Potassium 3.4 mMol/L (3.4-5.1); Sodium 138 mMol/L (136-145); Total Protein 6.4 gm/dL (5.7-8.2); eGFR > 60 See Note
--- NOTE | 2024-09-05 18:29 | PD.RESPRO ---
Documentation for date of: 09/05/24 Subjective Subjective Interval history: No significant events overnight, vitals and labs WNL. Patient had 4 bowel movements within the last 24 hours. Cognition and mentation much improved from yesterday. Patient has had decreased p.o. intake. Family members called and updated by team. Will most likely discharge patient tomorrow to SNF if he remains stable. Exam Vital Signs Temp Pulse Resp BP Pulse Ox O2 Del Method O2 Flow Rate 97.8 F 71 19 105/67 90 L Nasal Cannula 2 09/05/24 16:00 09/05/24 16:46 09/05/24 16:00 09/05/24 16:46 09/05/24 16:00 09/05/24 16:00 09/05/24 16:00 Narrative Exam Constitutional Alert, oriented x 2 in no acute distress HEENT Vision grossly intact. Patent nares. Trachea midline Respiratory Chest normal on inspection and clear auscultation bilaterally Cardiovascular S1 and S2 audible, RRR. No murmurs carotid bruit. No gross JVD. Abdominal Soft and non tender to palpation in all quadrants. BS + Genitourinary No bladder tenderness, no flank pain. Normal to palpation Musculoskeletal Extremities tone within normal limits. No LE edema. Neurological CN II - XII grossly intact. Extremity motor and sensation grossly intact. Skin Warm, dry and intact. No apparent lesions. Psychiatric Patient has good affect, is cooperative Objective Labs 09/07/24 09:00 09/07/24 09:00 Labs: Laboratory Results - last 24 hr 09/05/24 16:18 WBC 10.0 RBC 3.29 L Hgb 10.5 L Hct 31.6 L MCV 96 MCH 31.9 MCHC 33.2 RDW Std Deviation 72.8 H Plt Count 117 L D Neut % (Auto) 72 Lymph % (Auto) 13 [place] % (Auto) 12 Eos % (Auto) 3 Baso % (Auto) 0 Neut # (Auto) 7.2 Lymph # (Auto) 1.3 [place] # (Auto) 1.2 H Eos # (Auto) 0.3 Baso # (Auto) 0.0 Immature Gran # (Auto) 0.05 H Absolute Nucleated RBC 0.00 Immature Gran % 1 H Nucleated RBC % 0 Sodium 138 Potassium 3.4 D Chloride 106 Carbon Dioxide 26.6 Anion Gap 5 L BUN 18 Creatinine 0.8 Estim Creat Clear Calc 81.1 eGFR > 60 BUN/Creatinine Ratio 23 H Glucose 134 H D Calculated Osmolality 279 Calcium 7.5 L Corrected Calcium 9.2 Total Bilirubin 15.1 H D AST 111 H ALT 45 Alkaline Phosphatase 168 H Total Protein 6.4 Albumin 1.9 L Globulin 4.5 H Albumin/Globulin Ratio 0.4 L ABG Interpretation ABG results: 08/28/24 08/29/24 09/03/24 22:40 10:05 15:24 ABG pH 7.41 7.50 H ABG pCO2 29 L 33 ABG pO2 69 L 63 L ABG HCO3 18 L 25 ABG O2 Saturation 94 94 ABG Base Excess -6 L 2 VBG pH 7.41 VBG pCO2 47 VBG pO2 30 VBG Base Excess 4 H Quality Measures Quality Measures none Advance care planning discussed with:: other Assessment & Plan Assessment Current Active Medications: Generic Name Dose Route Start Last Admin Trade Name Freq PRN Reason Stop Dose Admin Acetaminophen 325 mg 08/28/24 20:28 Acetaminophen 325 Mg Tablet PO 09/27/24 20:27 Q6H PRN PAIN SCALE 1-3 (mild Albuterol/Ipratropium 3 ml 08/28/24 20:24 08/29/24 23:00 Albuterol/Ipratropium (Duoneb) Rt Janessa 3 Ml Nebu INH 09/27/24 22:59 3 ml Q4HRRT PRN Administration Wheeze Amoxicillin/Clavulanate Potassium 1 tab 08/30/24 21:00 09/05/24 10:09 Amoxicillin/Pot Clav 875 Tablet PO 09/06/24 20:59 1 tab BID JERSON Administration Folic Acid 1 mg 08/29/24 09:00 09/05/24 10:09 Folic Acid 1 Mg Tablet PO 09/28/24 08:59 1 mg QDAY JERSON Administration Lactulose 30 gm 09/04/24 12:00 09/05/24 16:47 Lactulose Syrup 20 Gm/30 Ml Udc PO 10/04/24 11:59 30 gm QID JERSON Administration Protocol Midodrine 5 mg 08/31/24 00:21 09/05/24 16:46 Midodrine 5 Mg Tablet PO 09/29/24 08:24 5 mg TID JERSON Administration Pantoprazole Sodium 40 mg 08/28/24 21:00 09/05/24 10:09 Pantoprazole Inj 40 Mg Vial IVP 09/27/24 20:59 40 mg BID JERSON Administration Propranolol HCl 10 mg 09/03/24 21:00 09/05/24 10:08 Propranolol 10 Mg Tablet PO 10/03/24 20:59 10 mg BID JERSON Administration Rifaximin 550 mg 08/28/24 21:00 09/05/24 10:09 Rifaximin 550 Mg Tablet PO 09/10/24 20:59 550 mg BID JERSON Administration Sodium Chloride 5 ml 08/28/24 17:29 08/28/24 18:47 Sodium Chloride Rt Janessa 0.9% 3 Ml Nebu INH 09/27/24 17:28 3 ml PRN PRN Administration SOLN Thiamine HCl 100 mg 08/28/24 20:45 09/05/24 10:09 Thiamine 100 Mg Tablet PO 09/27/24 20:44 100 mg QDAY JERSON Administration Plan Mr. Stack is a 74-year-old male with past medical history of liver cirrhosis secondary to alcohol use disorder, esophageal varices, ?Asthma/COPD, GERD, anxiety and BPH who was BIBA to [facility] emergency department from home on 08/28/2024 with a chief complaint of altered mental status. Patient will be admitted for workup and management of hepatic encephalopathy and acute blood loss anemia. 1. Altered mental status secondary to acute metabolic encephalopathy At baseline patient is conversational and oriented x 3. On admission patient was altered and ANO x 0. On exam patient's pupils reactive to light nonverbal and unresponsive to sternal rub. DDx: Hepatic encephalopathy, medication side effect, TIA CT brain was negative for hemorrhage, mass effect or midline shift Ammonia 57 Patient still confused, but oriented to person. Patient had 2 bowel movements in past 24 hours. Increase lactulose to 30G p.o. 4 times daily. Plan: ? Aspiration precautions ? Head of bed elevation ? Neurochecks every 4 hourly ? Increased lactulose to 30G p.o. 4 times daily. ? Continue rifaximin 550 Mg p.o. twice daily ? Continue thiamine p.o. 2. Likely aspiration pneumonia Patient presented with altered mental status On exam patient has decreased air entry at the bases Chest x-ray showed trace fluid in horizontal fissure right lung. Plan: ? Continue Augmentin 1 tab p.o. twice daily started on [08/30? 3. Hypokalemia?resolved 4. Hypophosphatemia K3.1 ---> 3.5 Phos 1.7 Plan: ? Repleted with sodium phosphate 30 mEq IV x 1 5. Acute blood loss anemia secondary to GI bleed?resolving 6. Likely upper GI bleed secondary to esophageal varices?resolving 7. Decompensated alcoholic cirrhosis with coagulopathy and thrombocytopenia 8. Hyperbilirubinemia 9. Hepatitis C Patient was found unconscious in a pool of coffee-ground emesis On admission patient's Hb 7.6 and he received 2 units PRBC. Post H&H 7.4 T.Bili 3.8 ---> 12.5 Plt 103 Hepatitis C antibody positive [08/31/2024] EGD completed on 08/29/2024 findings include: Diffuse hypertensive portal gastropathy with mucosal oozing of blood and 1+ esophageal varices not large enough for band ligation.. Meld?NA score 23 points. 7-10% 90-day mortality. Child?Hernandez class C. 12 points. Life expectancy 1-3 years. Abdominal surgery mortality 82% Completed 5 days of octreotide infusion from [08/29 - 09/02] Plan: ? Continue cardiac diet. ? Continue Protonix 40 Mg IV twice daily ? GI, Dr. Hall consulted and closely following the case. Appreciate recommendations. 10. Asthma 11. COPD Home medication Trelegy inhaler pCO2 47 Plan: ? DuoNebs as needed 12. Low TSH 13. Low T4 TSH 0.39, T4 0.84 Likely normal based on patient age 11. Goals of care discussion - SNF [09/01/2024] spoke to next of kin, Maggy Romero over the phone at . Briefly updated her on patient's hospital course and asked her to come in today for a goals of care discussion. Ms. Romero agreed for 3 PM and said she would call if any change of plans. At baseline she says that patient is independent and can carry out all his ADLs. He also has home health who visits him 6 days a week for a total of 21 hours. Patient's next of kin did not show up today. Will reach out again tomorrow. [09/02/2024] Spoke to next of kin, Maggy Romero over the phone at . Briefly updated her on patient's hospital course and asked her to come in today for a goals of care discussion. She said she might be able to come in tomorrow for an in person visit. Offered her the options of retirement facility versus hospice. She needs more time to think about it. [09/03/2024] Spoke to next of kin, Maggy Romero and her son at bedside. They expressed their wishes for retirement. All questions asked were answered and concerns addressed. Health maintenance: Disposition: Pending SNF once off of restraints for 24 hours. Diet: Cardiac Lines: pIVs GI Prophylaxis: Pantoprazole Thrombo Prophylaxis: None Code status: FULL CODE This patient care was discussed with my attending Dr. Leah Ignacio MD PGY-2 Disclaimer: Minor errors in fire and safety helper may be present since this note was dictated by speech recognition software. Attending Provider Attestation/Addendum I attest that I was physically present for the evaluation, physical examination, lab and imaging review of the patient with the residents. I discussed the case with the residents and agree with the findings and plans of care as documented above. At bedside today, patient is more alert and oriented x 2. Was able to answer some simple questions and follow commands. Had 4 bowel movements in last 24 hours. Talked with the family on the phone, discussed about his current condition and further management plans in detail. Patient has decreased oral intake, we will encourage him to drink and eat more. If patient is able to have good oral intake, if his vitals and labs are stable tomorrow, we will plan for discharge tomorrow. Mike Lynn MD
--- NOTE | 2024-09-05 20:27 | ESPR_ITS ---
Documentation for date of: 09/05/24 Subjective Subjective Interval history: Patient more alert and oriented responding to questions more appropriately Hemoglobin hematocrit 10.5 and 31.6 with a platelet count of 117,000 Total bilirubin 15.1 AST ALT 111 and 45 and alk phos 168 Exam Vital Signs Temp Pulse Resp BP Pulse Ox O2 Del Method O2 Flow Rate 97.8 F 71 19 105/67 90 L Nasal Cannula 2 09/05/24 16:00 09/05/24 16:46 09/05/24 16:00 09/05/24 16:46 09/05/24 16:00 09/05/24 16:00 09/05/24 16:00 Constitutional Comments: Alert oriented Routine HEENT Exam Comments: icteric sclera Routine Abdominal Exam Comments: Soft nontender Objective Labs 09/05/24 16:18 09/05/24 16:18 Labs: Laboratory Results - last 24 hr 09/05/24 16:18 WBC 10.0 RBC 3.29 L Hgb 10.5 L Hct 31.6 L MCV 96 MCH 31.9 MCHC 33.2 RDW Std Deviation 72.8 H Plt Count 117 L D Neut % (Auto) 72 Lymph % (Auto) 13 [place] % (Auto) 12 Eos % (Auto) 3 Baso % (Auto) 0 Neut # (Auto) 7.2 Lymph # (Auto) 1.3 [place] # (Auto) 1.2 H Eos # (Auto) 0.3 Baso # (Auto) 0.0 Immature Gran # (Auto) 0.05 H Absolute Nucleated RBC 0.00 Immature Gran % 1 H Nucleated RBC % 0 Sodium 138 Potassium 3.4 D Chloride 106 Carbon Dioxide 26.6 Anion Gap 5 L BUN 18 Creatinine 0.8 Estim Creat Clear Calc 81.1 eGFR > 60 BUN/Creatinine Ratio 23 H Glucose 134 H D Calculated Osmolality 279 Calcium 7.5 L Corrected Calcium 9.2 Total Bilirubin 15.1 H D AST 111 H ALT 45 Alkaline Phosphatase 168 H Total Protein 6.4 Albumin 1.9 L Globulin 4.5 H Albumin/Globulin Ratio 0.4 L Impressions Impression: 1 acute hepatic encephalopathy improving 2 upper GI bleed secondary to mucosal oozing of blood Continue current management ABG Interpretation ABG results: 08/28/24 08/29/24 09/03/24 22:40 10:05 15:24 ABG pH 7.41 7.50 H ABG pCO2 29 L 33 ABG pO2 69 L 63 L ABG HCO3 18 L 25 ABG O2 Saturation 94 94 ABG Base Excess -6 L 2 VBG pH 7.41 VBG pCO2 47 VBG pO2 30 VBG Base Excess 4 H Assessment & Plan A&P Narrative # Acute upper GI bleed in the form of melena # Acute posthemorrhagic anemia # Acute hepatic encephalopathy # Chronic liver disease with thrombocytopenia abnormal liver function test and coagulopathy secondary to alcohol Plan Agree with the blood transfusion give patient 2 units of PRBC Octreotide infusion Lactulose and Xifaxan Consent will be obtained from the sister who makes that decision for fiberoptic esophagogastroduodenoscopy with possible therapeutic intervention under intravenous moderate sedation Prognosis guarded Thank you for the opportunity to participate in the care of this patient Time Spent With Patient Time: Total time spent is greater than 50% in coordination of care (as documented) at patient's floor/unit and/or counseling patient:
[2024-09-06] VITALS (14 sets, daily range): BP systolic 91–118; BP diastolic 57–75; PULSE 60–81; RESP 12–20; TEMP 36.2–37.3; O2SAT 90–100
[2024-09-06] MEDS: MIDODRINE 5 MG TABLET PO ×3 (05:14→21:48)
[2024-09-06 05:45] LABS: Basophils % (Auto) 0 % (0-2.5); Eosinophils # (Auto) 0.2 Thou/mm3 (0.0-0.5); Eosinophils % (Auto) 2 % (0-10); Hematocrit 29.5 % (41.0-53.0); Hemoglobin 10.1 g/dL (13.5-16.0); Immature Granulocytes % (Auto) 1 % (0-0); Immature Granulocytes Auto 0.07 Thou/mm3 (0.00-0.00); Lymphocytes # (Auto) 1.3 Thou/mm3 (1.0-4.8); Lymphocytes % (Auto) 12 % (10-50); Mean Corpuscular HGB Conc 34.2 g/dl (31.0-37.0); Mean Corpuscular Hemoglobin 32.4 pg (25.0-35.0); Mean Corpuscular Volume 95 fL (80-100); Monocytes # (Auto) 1.4 Thou/mm3 (0.0-0.8); Monocytes % (Auto) 14 % (0-12); Neutrophils # (Auto) 7.3 Thou/mm3 (1.8-7.7); Neutrophils % (Auto) 71 % (37-80); Nucleated Red Blood Cell % 0 /100 WBC (0); Platelet Count 129 Thou/mm3 (140-440); RDW Standard Deviation 72.3 fL (35.1-43.9); Red Blood Count 3.12 Miln/mm3 (4.50-5.90); White Blood Count 10.3 Thou/mm3 (3.8-10.6)
[2024-09-06 06:09] LABS: Prothrombin Time 20.9 Seconds (9.0-12.2)
[2024-09-06 06:48] LABS: Alanine Aminotransferase 44 U/L (10-49); Albumin, Serum 1.8 gm/dL (3.4-4.8); Albumin/Globulin Ratio 0.4 (1.2-2.2); Alkaline Phosphatase 172 U/L (46-116); Anion Gap 6 (7-16); Aspartate Amino Transferase 108 U/L (0-34); BUN/Creatinine Ratio 20 Ratio (12-20); Bilirubin,Total 13.9 mg/dL (0.3-1.2); Blood Urea Nitrogen 22 mg/dL (9-23); Calcium 7.7 mg/dL (8.3-10.6); Calcium (Corrected) 9.5 mg/dL (8.5-10.1); Carbon Dioxide 27.7 mMol/L (20.0-31.0); Chloride 108 mMol/L (98-107); Creatinine (Component) 1.1 mg/dL (0.6-1.3); Globulin 4.4 gm/dL (2.3-3.5); Glucose 93 mg/dL (74-106); Magnesium 2.3 mg/dL (1.6-2.6); Osmolality,Calculated 286 (275-295); Phosphorous 1.9 mg/dL (2.4-5.1); Potassium 3.3 mMol/L (3.4-5.1); Sodium 142 mMol/L (136-145); Total Protein 6.2 gm/dL (5.7-8.2); eGFR > 60 See Note
[2024-09-06] MEDS: AMOXICILLIN/POT CLAV 875 TABLET 1 TAB PO (09:05)
[2024-09-06] MEDS: THIAMINE 100 MG TABLET PO (09:05)
[2024-09-06] MEDS: FOLIC ACID 1 MG TABLET PO (09:05)
[2024-09-06] MEDS: PANTOPRAZOLE INJ 40 MG VIAL IVP ×2 (09:05→20:37)
[2024-09-06] MEDS: rifaximin 550 MG TABLET PO ×2 (09:05→20:36)
[2024-09-06] MEDS: PROPRANOLOL 10 MG TABLET PO ×2 (09:06→20:36)
[2024-09-06] MEDS: POTASSIUM CHLORIDE 20 mEq TABCR 40 MEQ PO (09:11)
[2024-09-06] MEDS: POTASSIUM CHL 10 mEq IVPB 10 MEQ/100 ML BAG 100 MEQ IV (09:12)
[2024-09-06] MEDS: PHYTONADIONE INJ 10 MG in SODIUM CHLORIDE 0.9% 50 ML 102 MG IV (12:48)
--- NOTE | 2024-09-06 14:30 | PC.SS ---
SS was informed during 1400 rounds pot still has a FC, they will put order in to DC FC and wait for pt to void on his own, if fails reinsert FC. SS reached out to Lauren at [facility] to confirm pt can DC with FC, no response, message left.
--- NOTE | 2024-09-06 15:23 | PD.RESPRO ---
Documentation for date of: 09/06/24 Subjective Subjective Interval history: No significant events overnight, patient had 4+ bowel movements of large-scale dose and consistency. On examination patient AO x 3. Patient tolerating p.o. intake better than yesterday, was requesting to eat breakfast. Patient's Garcia catheter ordered to be removed and see if he is able to void. If patient unable to void, he can be discharged on Garcia catheter to SNF. Anticipating to discharge patient to SNF within 24 to 48 hours as he is still pending authorization. Exam Vital Signs Temp Pulse Resp BP Pulse Ox O2 Del Method O2 Flow Rate 97.1 F 68 17 95/57 L 95 Room Air 2 09/06/24 12:00 09/06/24 14:58 09/06/24 12:00 09/06/24 14:58 09/06/24 12:00 09/06/24 12:00 09/06/24 08:02 Narrative Exam Constitutional Alert, oriented x 3 in no acute distress HEENT Vision grossly intact. Patent nares. Trachea midline Respiratory Chest normal on inspection and clear auscultation bilaterally Cardiovascular S1 and S2 audible, RRR. No murmurs carotid bruit. No gross JVD. Abdominal Soft and non tender to palpation in all quadrants. BS + Genitourinary No bladder tenderness, no flank pain. Normal to palpation Musculoskeletal Extremities tone within normal limits. No LE edema. Neurological CN II - XII grossly intact. Extremity motor and sensation grossly intact. Skin Warm, dry and intact. No apparent lesions. Psychiatric Patient has good affect, is cooperative Objective Labs 09/07/24 09:00 09/07/24 09:00 Labs: Laboratory Results - last 24 hr 09/05/24 09/06/24 16:18 04:24 WBC 10.0 10.3 RBC 3.29 L 3.12 L Hgb 10.5 L 10.1 L Hct 31.6 L 29.5 L MCV 96 95 MCH 31.9 32.4 MCHC 33.2 34.2 RDW Std Deviation 72.8 H 72.3 H Plt Count 117 L D 129 L Neut % (Auto) 72 71 Lymph % (Auto) 13 12 [place] % (Auto) 12 14 H Eos % (Auto) 3 2 Baso % (Auto) 0 0 Neut # (Auto) 7.2 7.3 Lymph # (Auto) 1.3 1.3 [place] # (Auto) 1.2 H 1.4 H Eos # (Auto) 0.3 0.2 Baso # (Auto) 0.0 0.0 Immature Gran # (Auto) 0.05 H 0.07 H Absolute Nucleated RBC 0.00 0.00 Immature Gran % 1 H 1 H Nucleated RBC % 0 0 PT 20.9 H INR 2.0 H Sodium 138 142 Potassium 3.4 D 3.3 L Chloride 106 108 H Carbon Dioxide 26.6 27.7 Anion Gap 5 L 6 L BUN 18 22 Creatinine 0.8 1.1 Estim Creat Clear Calc 81.1 59.0 L eGFR > 60 > 60 BUN/Creatinine Ratio 23 H 20 Glucose 134 H D 93 Calculated Osmolality 279 286 Calcium 7.5 L 7.7 L Corrected Calcium 9.2 9.5 Phosphorus 1.9 L Magnesium 2.3 Total Bilirubin 15.1 H D 13.9 H D AST 111 H 108 H ALT 45 44 Alkaline Phosphatase 168 H 172 H Total Protein 6.4 6.2 Albumin 1.9 L 1.8 L Globulin 4.5 H 4.4 H Albumin/Globulin Ratio 0.4 L 0.4 L ABG Interpretation ABG results: 08/28/24 08/29/24 09/03/24 22:40 10:05 15:24 ABG pH 7.41 7.50 H ABG pCO2 29 L 33 ABG pO2 69 L 63 L ABG HCO3 18 L 25 ABG O2 Saturation 94 94 ABG Base Excess -6 L 2 VBG pH 7.41 VBG pCO2 47 VBG pO2 30 VBG Base Excess 4 H Quality Measures Quality Measures none Advance care planning discussed with:: other Assessment & Plan Assessment Current Active Medications: Generic Name Dose Route Start Last Admin Trade Name Freq PRN Reason Stop Dose Admin Acetaminophen 325 mg 08/28/24 20:28 Acetaminophen 325 Mg Tablet PO 09/27/24 20:27 Q6H PRN PAIN SCALE 1-3 (mild Albuterol/Ipratropium 3 ml 08/28/24 20:24 08/29/24 23:00 Albuterol/Ipratropium (Duoneb) Rt Janessa 3 Ml Nebu INH 09/27/24 22:59 3 ml Q4HRRT PRN Administration Wheeze Folic Acid 1 mg 08/29/24 09:00 09/06/24 09:05 Folic Acid 1 Mg Tablet PO 09/28/24 08:59 1 mg QDAY JERSON Administration Lactulose 30 gm 09/04/24 12:00 09/06/24 12:46 Lactulose Syrup 20 Gm/30 Ml Udc PO 10/04/24 11:59 Not Given QID [facility] Protocol Midodrine 5 mg 08/31/24 00:21 09/06/24 14:58 Midodrine 5 Mg Tablet PO 09/29/24 08:24 5 mg TID JERSON Administration Pantoprazole Sodium 40 mg 08/28/24 21:00 09/06/24 09:05 Pantoprazole Inj 40 Mg Vial IVP 09/27/24 20:59 40 mg BID JERSON Administration Propranolol HCl 10 mg 09/03/24 21:00 09/06/24 09:06 Propranolol 10 Mg Tablet PO 10/03/24 20:59 10 mg BID JERSON Administration Rifaximin 550 mg 08/28/24 21:00 09/06/24 09:05 Rifaximin 550 Mg Tablet PO 09/10/24 20:59 550 mg BID JERSON Administration Sodium Chloride 5 ml 08/28/24 17:29 08/28/24 18:47 Sodium Chloride Rt Janessa 0.9% 3 Ml Nebu INH 09/27/24 17:28 3 ml PRN PRN Administration SOLN Thiamine HCl 100 mg 08/28/24 20:45 09/06/24 09:05 Thiamine 100 Mg Tablet PO 09/27/24 20:44 100 mg QDAY JERSON Administration Plan Mr. Stack is a 74-year-old male with past medical history of liver cirrhosis secondary to alcohol use disorder, esophageal varices, ?Asthma/COPD, GERD, anxiety and BPH who was BIBA to [facility] emergency department from home on 08/28/2024 with a chief complaint of altered mental status. Patient will be admitted for workup and management of hepatic encephalopathy and acute blood loss anemia. 1. Altered mental status secondary to acute metabolic encephalopathy At baseline patient is conversational and oriented x 3. On admission patient was altered and ANO x 0. On exam patient's pupils reactive to light nonverbal and unresponsive to sternal rub. DDx: Hepatic encephalopathy, medication side effect, TIA CT brain was negative for hemorrhage, mass effect or midline shift Ammonia 57 Patient still confused, but oriented to person. Patient had 2 bowel movements in past 24 hours. Increase lactulose to 30G p.o. 4 times daily. Plan: ? Aspiration precautions ? Head of bed elevation ? Neurochecks every 4 hourly ? Continue lactulose to 30G p.o. 3 times daily. ? Continue rifaximin 550 Mg p.o. twice daily ? Continue thiamine p.o. 2. Likely aspiration pneumonia Patient presented with altered mental status On exam patient has decreased air entry at the bases Chest x-ray showed trace fluid in horizontal fissure right lung. Plan: ? Augmentin 1 tab p.o. twice daily started on [08/30?09/06], completed 7-day course 3. Hypokalemia?resolved 4. Hypophosphatemia K3.1 ---> 3.5 Phos 1.7 Plan: ? Replete as needed 5. Acute blood loss anemia secondary to GI bleed?resolving 6. Likely upper GI bleed secondary to esophageal varices?resolving 7. Decompensated alcoholic cirrhosis with coagulopathy and thrombocytopenia 8. Hyperbilirubinemia 9. Hepatitis C Patient was found unconscious in a pool of coffee-ground emesis On admission patient's Hb 7.6 and he received 2 units PRBC. Post H&H 7.4 T.Bili 3.8 ---> 12.5 Plt 103 Hepatitis C antibody positive [08/31/2024] EGD completed on 08/29/2024 findings include: Diffuse hypertensive portal gastropathy with mucosal oozing of blood and 1+ esophageal varices not large enough for band ligation.. Meld?NA score 23 points. 7-10% 90-day mortality. Child?Hernandez class C. 12 points. Life expectancy 1-3 years. Abdominal surgery mortality 82% Completed 5 days of octreotide infusion from [08/29 - 09/02] Plan: ? Continue cardiac diet. ? Continue Protonix 40 Mg IV twice daily ? GI, Dr. Hall consulted and closely following the case. Appreciate recommendations. 10. Asthma 11. COPD Home medication Trelegy inhaler pCO2 47 Plan: ? DuoNebs as needed 12. Low TSH 13. Low T4 TSH 0.39, T4 0.84 Likely normal based on patient age 11. Goals of care discussion - SNF [09/01/2024] spoke to next of kin, Maggy Romero over the phone at . Briefly updated her on patient's hospital course and asked her to come in today for a goals of care discussion. Ms. Romero agreed for 3 PM and said she would call if any change of plans. At baseline she says that patient is independent and can carry out all his ADLs. He also has home health who visits him 6 days a week for a total of 21 hours. Patient's next of kin did not show up today. Will reach out again tomorrow. [09/02/2024] Spoke to next of kin, Maggy Romero over the phone at [phone]. Briefly updated her on patient's hospital course and asked her to come in today for a goals of care discussion. She said she might be able to come in tomorrow for an in person visit. Offered her the options of jail facility versus hospice. She needs more time to think about it. [09/03/2024] Spoke to next of kin, Maggy Romero and her son at bedside. They expressed their wishes for jail. All questions asked were answered and concerns addressed. Debrided 09/06/2024] social sciences instructor in contact with family members, patient to be discharged to SNF, pending authorization and voiding trial Health maintenance: Disposition: Pending SNF once off of restraints for 24 hours. Diet: Cardiac Lines: pIVs GI Prophylaxis: Pantoprazole Thrombo Prophylaxis: None Code status: FULL CODE This patient care was discussed with my attending Dr. Leah Ignacio MD PGY-2 Disclaimer: Minor errors in wood processing worker may be present since this note was dictated by speech recognition software. Attending Provider Attestation/Addendum I attest that I was physically present for the evaluation, physical examination, lab and imaging review of the patient with the residents. I discussed the case with the residents and agree with the findings and plans of care as documented above. At bedside today, patient's mentation continues to improve. He continues to have more than 4 bowel movements in a day. Also has better oral intake. We will attempt to remove his Garcia, if able to void we will plan for discharge without the Garcia. Continues to be on lactulose, rifaximin and thiamine. Mike Lynn MD
[2024-09-06] MEDS: LACTULOSE SYRUP 20 GM/30 ML UDC 30 GM PO ×2 (17:29→20:36)
--- NOTE | 2024-09-06 18:05 | PD.IMPROG ---
Documentation for date of: 09/06/24 Subjective Subjective Interval history: # acute upper GI bleed secondary to mucosal oozing of blood # Chronic liver disease secondary to alcohol # Acute hepatic encephalopathy improving Exam Vital Signs Temp Pulse Resp BP Pulse Ox O2 Del Method O2 Flow Rate 97.2 F 78 20 108/75 94 L Nasal Cannula 2 09/06/24 16:00 09/06/24 16:00 09/06/24 16:00 09/06/24 16:00 09/06/24 16:00 09/06/24 16:00 09/06/24 16:00 Objective Labs 09/06/24 04:24 09/06/24 04:24 Labs: Laboratory Results - last 24 hr 09/06/24 04:24 WBC 10.3 RBC 3.12 L Hgb 10.1 L Hct 29.5 L MCV 95 MCH 32.4 MCHC 34.2 RDW Std Deviation 72.3 H Plt Count 129 L Neut % (Auto) 71 Lymph % (Auto) 12 [place] % (Auto) 14 H Eos % (Auto) 2 Baso % (Auto) 0 Neut # (Auto) 7.3 Lymph # (Auto) 1.3 [place] # (Auto) 1.4 H Eos # (Auto) 0.2 Baso # (Auto) 0.0 Immature Gran # (Auto) 0.07 H Absolute Nucleated RBC 0.00 Immature Gran % 1 H Nucleated RBC % 0 PT 20.9 H INR 2.0 H Sodium 142 Potassium 3.3 L Chloride 108 H Carbon Dioxide 27.7 Anion Gap 6 L BUN 22 Creatinine 1.1 Estim Creat Clear Calc 59.0 L eGFR > 60 BUN/Creatinine Ratio 20 Glucose 93 Calculated Osmolality 286 Calcium 7.7 L Corrected Calcium 9.5 Phosphorus 1.9 L Magnesium 2.3 Total Bilirubin 13.9 H D AST 108 H ALT 44 Alkaline Phosphatase 172 H Total Protein 6.2 Albumin 1.8 L Globulin 4.4 H Albumin/Globulin Ratio 0.4 L ABG Interpretation ABG results: 08/28/24 08/29/24 09/03/24 22:40 10:05 15:24 ABG pH 7.41 7.50 H ABG pCO2 29 L 33 ABG pO2 69 L 63 L ABG HCO3 18 L 25 ABG O2 Saturation 94 94 ABG Base Excess -6 L 2 VBG pH 7.41 VBG pCO2 47 VBG pO2 30 VBG Base Excess 4 H Assessment & Plan A&P Narrative # Acute upper GI bleed in the form of melena # Acute posthemorrhagic anemia # Acute hepatic encephalopathy # Chronic liver disease with thrombocytopenia abnormal liver function test and coagulopathy secondary to alcohol Plan Agree with the blood transfusion give patient 2 units of PRBC Octreotide infusion Lactulose and Xifaxan Consent will be obtained from the sister who makes that decision for fiberoptic esophagogastroduodenoscopy with possible therapeutic intervention under intravenous moderate sedation Prognosis guarded Thank you for the opportunity to participate in the care of this patient Time Spent With Patient Time: Total time spent is greater than 50% in coordination of care (as documented) at patient's floor/unit and/or counseling patient:
--- NOTE | 2024-09-06 22:02 | PC.NURSE ---
Clarified with MD Mitchell if he wants to DC [facility] tonight prior to discharge. He said ok to leave [facility] and he will be DCd with the [facility] to the SNF
[2024-09-07] VITALS (12 sets, daily range): BP systolic 94–99; BP diastolic 50–65; PULSE 65–76; RESP 14–25; TEMP 36.5–37.1; O2SAT 94–97
[2024-09-07] MEDS: MIDODRINE 5 MG TABLET PO (05:23)
[2024-09-07 09:19] LABS: Basophils % (Auto) 0 % (0-2.5); Eosinophils # (Auto) 0.3 Thou/mm3 (0.0-0.5); Eosinophils % (Auto) 2 % (0-10); Hematocrit 30.3 % (41.0-53.0); Immature Granulocytes % (Auto) 1 % (0-0); Immature Granulocytes Auto 0.06 Thou/mm3 (0.00-0.00); Lymphocytes # (Auto) 1.3 Thou/mm3 (1.0-4.8); Lymphocytes % (Auto) 12 % (10-50); Mean Corpuscular Hemoglobin 32.4 pg (25.0-35.0); Mean Corpuscular Volume 98 fL (80-100); Monocytes # (Auto) 1.3 Thou/mm3 (0.0-0.8); Monocytes % (Auto) 12 % (0-12); Neutrophils # (Auto) 8.2 Thou/mm3 (1.8-7.7); Neutrophils % (Auto) 73 % (37-80); Nucleated Red Blood Cell % 0 /100 WBC (0); Platelet Count 138 Thou/mm3 (140-440); RDW Standard Deviation 78.3 fL (35.1-43.9); Red Blood Count 3.09 Miln/mm3 (4.50-5.90); White Blood Count 11.2 Thou/mm3 (3.8-10.6)
[2024-09-07] MEDS: PROPRANOLOL 10 MG TABLET PO ×2 (09:20→21:35)
[2024-09-07] MEDS: THIAMINE 100 MG TABLET PO (09:20)
[2024-09-07] MEDS: POT PHOS 15 mMol in NS 250 ML 15 MMOL/250 ML BAG 62.5 MMOL IV (09:20)
[2024-09-07] MEDS: FOLIC ACID 1 MG TABLET PO (09:20)
[2024-09-07] MEDS: PANTOPRAZOLE INJ 40 MG VIAL IVP (09:21)
[2024-09-07] MEDS: rifaximin 550 MG TABLET PO ×2 (09:21→21:35)
--- NOTE | 2024-09-07 09:24 | PC.SS ---
SS spoke to pt SIster, Maggy Romero [phone] in regards to DC today to [facility]. Maggy is in agreement with plan. SS inquired if they need any paperwork signed if she is available to go to the facility, she stated yes they will be also be visiting him frequently.
--- NOTE | 2024-09-07 09:26 | PC.SS ---
SS spoke to Lauren at [facility] in regards to DC today with FC, Lauren stated this is okay.
[2024-09-07 10:00] LABS: Alanine Aminotransferase 56 U/L (10-49); Albumin, Serum 1.7 gm/dL (3.4-4.8); Albumin/Globulin Ratio 0.4 (1.2-2.2); Alkaline Phosphatase 172 U/L (46-116); Anion Gap 7 (7-16); Aspartate Amino Transferase 138 U/L (0-34); BUN/Creatinine Ratio 16 Ratio (12-20); Bilirubin,Total 14.9 mg/dL (0.3-1.2); Blood Urea Nitrogen 33 mg/dL (9-23); Calcium 7.6 mg/dL (8.3-10.6); Calcium (Corrected) 9.4 mg/dL (8.5-10.1); Carbon Dioxide 26.4 mMol/L (20.0-31.0); Chloride 105 mMol/L (98-107); Creatinine (Component) 2.1 mg/dL (0.6-1.3); Estimated Creatinine Clearance 30.9 mL/min (>60); Globulin 4.6 gm/dL (2.3-3.5); Glucose 115 mg/dL (74-106); Magnesium 2.4 mg/dL (1.6-2.6); Osmolality,Calculated 283 (275-295); Phosphorous 3.4 mg/dL (2.4-5.1); Potassium 3.5 mMol/L (3.4-5.1); Sodium 138 mMol/L (136-145); Total Protein 6.3 gm/dL (5.7-8.2); eGFR 32 See Note
--- NOTE | 2024-09-07 10:07 | PD.RESDS ---
Planned Discharge Date 09/07/24 DS: Providers Provider Date of admission: 08/28/24 20:24 Primary care physician: Physician No Primary/Family Admitting Provider: Giorgi Horne MD Attending Provider on Admission: Esteban Mccallum MD Consults: 08/28/24 17:48 Consult to Gastroenterology Stat Comment: UGIB Consulting Provider: Gail Hall 08/31/24 10:32 Referral Physical Therapy Routine Comment: Physician Instructions: Instructions: For possible SNF placement 09/05/24 09:29 Referral Registered Dietitian Routine Comment: 09/05/24 18:05 Referral Wound Care Routine Comment: Attending Provider on DC: Paul Green MD Discharging Provider: Paul Green MD Hospital Course Time Spent with Patient Time attestation: Total time spent providing and/or coordinating discharge services: Time spent: Greater than 30 minutes (37) Exam Vital Signs Temp Pulse Resp BP Pulse Ox O2 Del Method O2 Flow Rate 98.7 F 74 25 H 94/65 95 Room Air 1 09/07/24 08:00 09/07/24 09:20 09/07/24 08:03 09/07/24 09:20 09/07/24 08:03 09/07/24 08:00 09/07/24 08:03 Narrative Exam Constitutional Alert, oriented x 3 in no acute distress HEENT Vision grossly intact. Patent nares. Trachea midline Respiratory Chest normal on inspection and clear auscultation bilaterally Cardiovascular S1 and S2 audible, RRR. No murmurs carotid bruit. No gross JVD. Abdominal Soft and non tender to palpation in all quadrants. BS + Genitourinary No bladder tenderness, no flank pain. Normal to palpation Musculoskeletal Extremities tone within normal limits. No LE edema. Neurological CN II - XII grossly intact. Extremity motor and sensation grossly intact. Skin Warm, dry and intact. No apparent lesions. Psychiatric Patient has good affect, is cooperative Discharge Plan Plan Patient Disposition: Xfer Skilled Nsg Fac (SNF) Patient condition on transfer: Stable Care Plan Goals: - You have been started on a Medication Lactulose. Please take 30g four times a day to achieve 2-3 bowel movements per day. You can decrease the dose if you have diarrhea. - You have been started on a medication Propranolol for your esophagel varices. Take one tablet twice a day. Do not take if your pulse is less than 56 or the top number of your blood pressue is less than 90. - You have been started on a medication Midodrine to take as needed if the top number of your blood pressue is less than 90. - You have been started on supplements thiamine . Take one tablet once a day for life. - We have held your lasix until you see your primary doctor. - Follow up with your primary care physician within 1 week of discharge. If you do not have a primary care physician, please follow up with the [facility] Residents clinic ([phone]) ? If you experience any new, worsening or persistent symptoms either call your primary doctor, or dial 911 or present to the emergency department. Prescriptions/Referrals Prescriptions/Med Rec: New midodrine 5 mg Tablet 5 mg PO TID 15 Days Qty: 45 0RF Rx Instructions: When systolic BP lower than 100 propranolol 10 mg Tablet 10 mg PO BID 30 Days Qty: 60 0RF folic acid 1 mg Tablet 1 mg PO QDAY 30 Days Qty: 30 0RF lactulose 20 gram/30 mL Solution 30 g PO TID 30 Days Qty: 4050 0RF Continued spironolactone 25 mg tablet 25 mg PO QDAY 14 Days Qty: 14 0RF Patient Comments: TAKE 1 TABLET BY MOUTH EVERY DAY escitalopram oxalate 10 mg tablet 10 mg PO QDAY 14 Days Qty: 14 0RF Trelegy Ellipta 200-62.5-25 mcg Blister With Device 1 inh INHALATION QDAY pantoprazole 40 mg tablet,delayed release (DR/EC) 40 mg PO BID Qty: 60 0RF hydrocodone-acetaminophen 10-325 mg tablet 1 tab PO Q6H PRN (Reason: Pain) Patient Comments: TAKE 1 TABLET BY MOUTH EVERY 6 HOURS NEEDED FOR SEVERE PAIN alprazolam 0.5 mg tablet 0.5 mg PO BID PRN (Reason: Anxiety) Patient Comments: TAKE 1 TABLET BY MOUTH TWICE DAILY NEEDED FOR ANXIETY tamsulosin 0.4 mg capsule 0.4 mg PO DAILY Patient Comments: TAKE 1 CAPSULE BY MOUTH TWICE DAILY DIRECTED Rx Instructions: from previous pharmacy refill list ferrous sulfate 324 mg (65 mg iron) tablet,delayed release (DR/EC) 324 mg PO BID Qty: 60 0RF Held furosemide [Lasix] 20 mg tablet 20 mg PO BID Qty: 60 0RF Hold Instructions: Resume on 09/20/24. May resume after seeing your primary care physician Referrals: No Primary/Family,Physician [Primary Care Provider] - Patient/Caregiver Discharge Instructions Other Discharge Activity Instructions:: Please see your primary care physician within x1 week of discharge Please avoid NSAIDS, Ibuprofen, Advil Stop taking your home medication Lasix until you see your doctor Continue the rest of your home medications as indicated Continue taking your new prescription medications as indicated If symptoms worsen, please go to your nearest hospital / ED Education Materials: Bleeding Gastrointestinal, Understanding Cirrhosis, ED Cirrhosis Print Language: Estonian Stand Alone Forms: Janet Award Info., Patient Portal Info Letter Discharge Order Discharge Orders: Discharge (Routine); Ordered 09/07/24 Ordered By: Paul Green
--- NOTE | 2024-09-07 10:15 | PC.SS ---
SS spoke to Team who stated pt is ready for DC, HARIS Signed by Yousuf to go to [facility] via [facility] ETA set for 1230.
--- NOTE | 2024-09-07 10:30 | PC.SS ---
SS spoke to RNEmery in regards to DC, per Lissett Doctor ordered FC to be removed and wait to see if he voids on his own. Per Lissett pt has 6 hrs to be able to be on his own prior to FC being re-inserted. SS called [facility] and put transport on WILL CALL.
[2024-09-07] MEDS: POTASSIUM CHLORIDE 10% 20 MEQ/15 ML UDC 40 MEQ PO (12:09)
[2024-09-07] MEDS: NAPH,KPH MBDB 1 PACKET (1.5 GM) PO (12:09)
--- NOTE | 2024-09-07 14:26 | ESPR_ITS ---
<Statement entered by Checo Ignacio MD - 09/08/24 07:04> I discussed with and supervised the administrative intern physician involved in the care of this patient. Patient assessment and plan was discussed with entire medicine team, including my attending. I agree with the assessment and plan as documented by administrative intern doctor. Patient care was discussed with my attending physician Dr. Leah Ignacio, PGY-2 Documentation for date of: 09/07/24 Subjective Subjective Interval history: Patient was seen and examined at bedside this AM. No acute exents overnight. Patient tolerating minimal diet, adequate urine output and mentation is at baseline. Patient denies any abdominal pain, nausea, vomiting and diarrhea. Patient had 4 bowel movements in the past 24 hours Will attempt to clamp and remove Garcia catheter today. K3.3, Phos 1.9. Patient repleted with potassium phosphate 30 mmol IV x 1 Creatinine increased to 2.1 from 1.1. Started patient on D5/NS IV fluids. Also encourage increase p.o. fluid intake. Exam Vital Signs Temp Pulse Resp BP Pulse Ox O2 Del Method O2 Flow Rate 98.2 F 75 16 97/55 L 96 Room Air 1 09/07/24 12:00 09/07/24 12:00 09/07/24 12:00 09/07/24 12:00 09/07/24 12:00 09/07/24 12:00 09/07/24 08:03 Narrative Exam Constitutional Alert, oriented x 3 in no acute distress. Scleral icterus. HEENT Vision grossly intact. Patent nares. Trachea midline Respiratory Chest normal on inspection and clear auscultation bilaterally Cardiovascular S1 and S2 audible, RRR. No murmurs carotid bruit. No gross JVD. Abdominal Soft and non tender to palpation in all quadrants. BS + Genitourinary No bladder tenderness, no flank pain. Normal to palpation Musculoskeletal Extremities tone within normal limits. No LE edema. Neurological CN II - XII grossly intact. Extremity motor and sensation grossly intact. Skin Warm, dry and intact. No apparent lesions. Psychiatric Patient has good affect, is cooperative Objective Labs 09/09/24 04:53 09/09/24 04:53 Labs: Laboratory Results - last 24 hr 09/07/24 09:00 WBC 11.2 H RBC 3.09 L Hgb 10.0 L Hct 30.3 L MCV 98 MCH 32.4 MCHC 33.0 RDW Std Deviation 78.3 H Plt Count 138 L Neut % (Auto) 73 Lymph % (Auto) 12 Mobile % (Auto) 12 Eos % (Auto) 2 Baso % (Auto) 0 Neut # (Auto) 8.2 H Lymph # (Auto) 1.3 Mobile # (Auto) 1.3 H Eos # (Auto) 0.3 Baso # (Auto) 0.0 Immature Gran # (Auto) 0.06 H Absolute Nucleated RBC 0.00 Immature Gran % 1 H Nucleated RBC % 0 Sodium 138 Potassium 3.5 Chloride 105 Carbon Dioxide 26.4 Anion Gap 7 BUN 33 H Creatinine 2.1 H D Estim Creat Clear Calc 30.9 L eGFR 32 L BUN/Creatinine Ratio 16 Glucose 115 H Calculated Osmolality 283 Calcium 7.6 L Corrected Calcium 9.4 Phosphorus 3.4 Magnesium 2.4 Total Bilirubin 14.9 H D AST 138 H ALT 56 H Alkaline Phosphatase 172 H Total Protein 6.3 Albumin 1.7 L Globulin 4.6 H Albumin/Globulin Ratio 0.4 L ABG Interpretation ABG results: 08/28/24 08/29/24 09/03/24 22:40 10:05 15:24 ABG pH 7.41 7.50 H ABG pCO2 29 L 33 ABG pO2 69 L 63 L ABG HCO3 18 L 25 ABG O2 Saturation 94 94 ABG Base Excess -6 L 2 VBG pH 7.41 VBG pCO2 47 VBG pO2 30 VBG Base Excess 4 H Quality Measures Quality Measures none Advance care planning discussed with:: patient Assessment & Plan Assessment Current Active Medications: Generic Name Dose Route Start Last Admin Trade Name Freq PRN Reason Stop Dose Admin Acetaminophen 325 mg 08/28/24 20:28 Acetaminophen 325 Mg Tablet PO 09/27/24 20:27 Q6H PRN PAIN SCALE 1-3 (mild Albuterol/Ipratropium 3 ml 08/28/24 20:24 08/29/24 23:00 Albuterol/Ipratropium (Duoneb) Rt Janessa 3 Ml Nebu INH 09/27/24 22:59 3 ml Q4HRRT PRN Administration Wheeze Folic Acid 1 mg 08/29/24 09:00 09/07/24 09:20 Folic Acid 1 Mg Tablet PO 09/28/24 08:59 1 mg QDAY JERSON Administration Lactulose 30 gm 09/04/24 12:00 09/07/24 12:06 Lactulose Syrup 20 Gm/30 Ml Udc PO 10/04/24 11:59 Not Given QID JERSON Protocol Midodrine 5 mg 09/07/24 07:30 Midodrine 5 Mg Tablet PO 09/29/24 08:24 TID PRN SBP < 90 Pantoprazole Sodium 40 mg 08/28/24 21:00 09/07/24 09:21 Pantoprazole Inj 40 Mg Vial IVP 09/27/24 20:59 40 mg BID JERSON Administration Propranolol HCl 10 mg 09/03/24 21:00 09/07/24 09:20 Propranolol 10 Mg Tablet PO 10/03/24 20:59 10 mg BID JERSON Administration Rifaximin 550 mg 08/28/24 21:00 09/07/24 09:21 Rifaximin 550 Mg Tablet PO 09/10/24 20:59 550 mg BID JERSON Administration Sodium Chloride 5 ml 08/28/24 17:29 08/28/24 18:47 Sodium Chloride Rt Janessa 0.9% 3 Ml Nebu INH 09/27/24 17:28 3 ml PRN PRN Administration SOLN Thiamine HCl 100 mg 08/28/24 20:45 09/07/24 09:20 Thiamine 100 Mg Tablet PO 09/27/24 20:44 100 mg QDAY JERSON Administration Plan Mr. Stack is a 74-year-old male with past medical history of liver cirrhosis secondary to alcohol use disorder, esophageal varices, ?Asthma/COPD, GERD, anxiety and BPH who was BIBA to [facility] emergency department from home on 08/28/2024 with a chief complaint of altered mental status. Patient will be admitted for workup and management of hepatic encephalopathy and acute blood loss anemia. 1. Acute kidney injury prerenal versus renal Baseline CR 0.5. CR 1.1??>2.1 Etiology: AIN, medication side effect, dehydration Plan: ? Normal saline/D5W IV fluids ordered at 80 cc/h. ? Encourage p.o. fluid intake ? Renally dose medication ? Avoid nephrotoxic agents 2. Altered mental status secondary to acute metabolic encephalopathy - resolving At baseline patient is conversational and oriented x 3. On admission patient was altered and ANO x 0. On exam patient's pupils reactive to light nonverbal and unresponsive to sternal rub. DDx: Hepatic encephalopathy, medication side effect, TIA CT brain was negative for hemorrhage, mass effect or midline shift Ammonia 57 Patient now oriented x 3 Plan: ? Aspiration precautions ? Head of bed elevation ? Neurochecks every 4 hourly ? Continue lactulose 30G p.o. 4 times daily. ? Continue rifaximin 550 Mg p.o. twice daily ? Continue thiamine p.o. 3. Likely aspiration pneumonia - resolved Patient presented with altered mental status On exam patient has decreased air entry at the bases Chest x-ray showed trace fluid in horizontal fissure right lung. Completed 7 days of Augmentin 1 tab p.o. twice daily from [08/30?09/06] 4. Hypokalemia 5. Hypophosphatemia K3.3, Phos 1.9. Patient repleted with potassium phosphate 30 mmol IV x 1 6. Acute blood loss anemia secondary to GI bleed?resolving 7. Likely upper GI bleed secondary to esophageal varices?resolving 8. Decompensated alcoholic cirrhosis with coagulopathy and thrombocytopenia 9. Hyperbilirubinemia 10. Hepatitis C Patient was found unconscious in a pool of coffee-ground emesis On admission patient's Hb 7.6 and he received 2 units PRBC. Post H&H 7.4 T.Bili 3.8 ---> 12.5 Plt 103 Hepatitis C antibody positive [08/31/2024] EGD completed on 08/29/2024 findings include: Diffuse hypertensive portal gastropathy with mucosal oozing of blood and 1+ esophageal varices not large enough for band ligation.. Meld?NA score 23 points. 7-10% 90-day mortality. Child?Hernandez class C. 12 points. Life expectancy 1-3 years. Abdominal surgery mortality 82% Completed 5 days of octreotide infusion from [08/29 - 09/02] Plan: ? Continue cardiac diet. ? Discontinued Protonix 40 Mg IV twice daily. ? Started on Protonix 40 Mg p.o. daily ? GI, Dr. Hall consulted and closely following the case. Appreciate recommendations. 10. Asthma 11. COPD Home medication Trelegy inhaler pCO2 47 Plan: ? DuoNebs as needed 12. Low TSH 13. Low T4 TSH 0.39, T4 0.84 Likely normal based on patient age 11. Goals of care discussion - SNF [09/01/2024] spoke to next of kin, Maggy Romero over the phone at [phone]. Briefly updated her on patient's hospital course and asked her to come in today for a goals of care discussion. Ms. Romero agreed for 3 PM and said she would call if any change of plans. At baseline she says that patient is independent and can carry out all his ADLs. He also has home health who visits him 6 days a week for a total of 21 hours. Patient's next of kin did not show up today. Will reach out again tomorrow. [09/02/2024] Spoke to next of kin, Maggy Romero over the phone at . Briefly updated her on patient's hospital course and asked her to come in today for a goals of care discussion. She said she might be able to come in tomorrow for an in person visit. Offered her the options of custodial facility versus hospice. She needs more time to think about it. [09/03/2024] Spoke to next of kin, Maggy Romero and her son at bedside. They expressed their wishes for custodial. All questions asked were answered and concerns addressed. [09/06/2024] manager social responsibility in contact with family members, patient to be discharged to SNF, pending authorization and voiding trial Health maintenance: Disposition: Pending SNF once CONNOR resolves Diet: Cardiac Lines: pIVs GI Prophylaxis: Pantoprazole Thrombo Prophylaxis: None Code status: FULL CODE Plan of care discussed with Attending Dr. Lynn and PGY2 Dr. Sandee Green MD PGY 1 Attending Provider Attestation/Addendum I attest that I was physically present for the evaluation, physical examination, lab and imaging review of the patient with the residents. I discussed the case with the residents and agree with the findings and plans of care as documented above. At bedside today, patient continues to be alert and awake, oriented x 3. Patient did not have his Garcia removed yesterday. This morning, noted to have creatinine of 2.1, worsening from 1.1 yesterday. Patient's also not having adequate oral intake. We will start patient on careful IV hydration with D5W NS at 80 cc/h. Will also encourage the patient to have increased oral intake. Patient also noted to have some electrolyte imbalances, we will replete as needed. Mike Lynn MD
--- NOTE | 2024-09-07 14:30 | PC.NURSE ---
unable to get IV access on patient, multiple attempts with no success. aware
--- NOTE | 2024-09-07 14:42 | PC.SS ---
DC cancelled due to decline in liver function on recent labs. RN, Lissett made aware and [facility]. SS also updated sister, Maggy
[2024-09-07] MEDS: DEXTROSE 5%-NS 1,000 ML 100 ML IV (16:57)
--- NOTE | 2024-09-07 19:08 | PD.IMPROG ---
Documentation for date of: 09/07/24 Subjective Subjective Interval history: Patient evaluated More alert Hemoglobin hematocrit 10.0 and 30.3 Exam Vital Signs Temp Pulse Resp BP Pulse Ox O2 Del Method O2 Flow Rate 97.9 F 65 14 94/50 L 95 Room Air 1 09/07/24 16:00 09/07/24 16:00 09/07/24 16:00 09/07/24 16:00 09/07/24 16:00 09/07/24 16:00 09/07/24 08:03 Constitutional Comments: More alert patient Routine Respiratory Exam Comments: Normal to auscultation Routine Abdominal Exam Comments: Soft nontender Objective Labs 09/07/24 09:00 09/07/24 09:00 Labs: Laboratory Results - last 24 hr 09/07/24 09:00 WBC 11.2 H RBC 3.09 L Hgb 10.0 L Hct 30.3 L MCV 98 MCH 32.4 MCHC 33.0 RDW Std Deviation 78.3 H Plt Count 138 L Neut % (Auto) 73 Lymph % (Auto) 12 Alfalfa % (Auto) 12 Eos % (Auto) 2 Baso % (Auto) 0 Neut # (Auto) 8.2 H Lymph # (Auto) 1.3 Alfalfa # (Auto) 1.3 H Eos # (Auto) 0.3 Baso # (Auto) 0.0 Immature Gran # (Auto) 0.06 H Absolute Nucleated RBC 0.00 Immature Gran % 1 H Nucleated RBC % 0 Sodium 138 Potassium 3.5 Chloride 105 Carbon Dioxide 26.4 Anion Gap 7 BUN 33 H Creatinine 2.1 H D Estim Creat Clear Calc 30.9 L eGFR 32 L BUN/Creatinine Ratio 16 Glucose 115 H Calculated Osmolality 283 Calcium 7.6 L Corrected Calcium 9.4 Phosphorus 3.4 Magnesium 2.4 Total Bilirubin 14.9 H D AST 138 H ALT 56 H Alkaline Phosphatase 172 H Total Protein 6.3 Albumin 1.7 L Globulin 4.6 H Albumin/Globulin Ratio 0.4 L Impressions Impression: Acute hepatic encephalopathy improving Upper GI bleed secondary to mucosal oozing of blood Continue current management ABG Interpretation ABG results: 08/28/24 08/29/24 09/03/24 22:40 10:05 15:24 ABG pH 7.41 7.50 H ABG pCO2 29 L 33 ABG pO2 69 L 63 L ABG HCO3 18 L 25 ABG O2 Saturation 94 94 ABG Base Excess -6 L 2 VBG pH 7.41 VBG pCO2 47 VBG pO2 30 VBG Base Excess 4 H Assessment & Plan A&P Narrative # Acute upper GI bleed in the form of melena # Acute posthemorrhagic anemia # Acute hepatic encephalopathy # Chronic liver disease with thrombocytopenia abnormal liver function test and coagulopathy secondary to alcohol Plan Agree with the blood transfusion give patient 2 units of PRBC Octreotide infusion Lactulose and Xifaxan Consent will be obtained from the sister who makes that decision for fiberoptic esophagogastroduodenoscopy with possible therapeutic intervention under intravenous moderate sedation Prognosis guarded Thank you for the opportunity to participate in the care of this patient Time Spent With Patient Time: Total time spent is greater than 50% in coordination of care (as documented) at patient's floor/unit and/or counseling patient:
[2024-09-07] MEDS: LACTULOSE SYRUP 20 GM/30 ML UDC 30 GM PO (21:35)
[2024-09-08] VITALS (12 sets, daily range): BP systolic 88–121; BP diastolic 56–70; PULSE 57–99; RESP 14–20; TEMP 36.3–37.6; O2SAT 90–99
[2024-09-08] MEDS: MIDODRINE 5 MG TABLET PO (01:12)
[2024-09-08] MEDS: DEXTROSE 5%-NS 1,000 ML 100 ML IV (03:24)
[2024-09-08 07:01] LABS: Basophils % (Auto) 0 % (0-2.5); Eosinophils # (Auto) 0.3 Thou/mm3 (0.0-0.5); Eosinophils % (Auto) 3 % (0-10); Hematocrit 28.5 % (41.0-53.0); Hemoglobin 9.5 g/dL (13.5-16.0); Immature Granulocytes % (Auto) 1 % (0-0); Immature Granulocytes Auto 0.06 Thou/mm3 (0.00-0.00); Lymphocytes # (Auto) 1.1 Thou/mm3 (1.0-4.8); Lymphocytes % (Auto) 9 % (10-50); Mean Corpuscular HGB Conc 33.3 g/dl (31.0-37.0); Mean Corpuscular Hemoglobin 32.2 pg (25.0-35.0); Mean Corpuscular Volume 97 fL (80-100); Monocytes # (Auto) 1.6 Thou/mm3 (0.0-0.8); Monocytes % (Auto) 13 % (0-12); Neutrophils # (Auto) 8.8 Thou/mm3 (1.8-7.7); Neutrophils % (Auto) 74 % (37-80); Nucleated Red Blood Cell % 0 /100 WBC (0); Platelet Count 131 Thou/mm3 (140-440); Red Blood Count 2.95 Miln/mm3 (4.50-5.90); White Blood Count 11.9 Thou/mm3 (3.8-10.6)
[2024-09-08 07:19] LABS: Alanine Aminotransferase 53 U/L (10-49); Albumin, Serum 1.7 gm/dL (3.4-4.8); Albumin/Globulin Ratio 0.4 (1.2-2.2); Alkaline Phosphatase 182 U/L (46-116); Anion Gap 9 (7-16); Aspartate Amino Transferase 132 U/L (0-34); BUN/Creatinine Ratio 15 Ratio (12-20); Bilirubin,Total 15.2 mg/dL (0.3-1.2); Blood Urea Nitrogen 43 mg/dL (9-23); Calcium 7.2 mg/dL (8.3-10.6); Carbon Dioxide 24.4 mMol/L (20.0-31.0); Chloride 104 mMol/L (98-107); Creatinine (Component) 2.9 mg/dL (0.6-1.3); Estimated Creatinine Clearance 22.4 mL/min (>60); Globulin 4.4 gm/dL (2.3-3.5); Glucose 118 mg/dL (74-106); Magnesium 2.4 mg/dL (1.6-2.6); Osmolality,Calculated 285 (275-295); Phosphorous 3.9 mg/dL (2.4-5.1); Potassium 3.3 mMol/L (3.4-5.1); Sodium 137 mMol/L (136-145); Total Protein 6.1 gm/dL (5.7-8.2); eGFR 22 See Note
[2024-09-08] MEDS: THIAMINE 100 MG TABLET PO (08:37)
[2024-09-08] MEDS: rifaximin 550 MG TABLET PO ×2 (08:37→21:28)
[2024-09-08] MEDS: PANTOPRAZOLE 40 MG TABLET PO (08:37)
[2024-09-08] MEDS: FOLIC ACID 1 MG TABLET PO (08:38)
[2024-09-08] MEDS: PROPRANOLOL 10 MG TABLET PO ×2 (08:38→21:28)
[2024-09-08] MEDS: POTASSIUM CHLORIDE 10% 20 MEQ/15 ML UDC 40 MEQ PO (08:45)
[2024-09-08] MEDS: SODIUM CHLORIDE 0.9% 1000 ML 1,000 ML 125 ML IV (12:32)
--- NOTE | 2024-09-08 12:36 | XR_ITS ---
Examination: Retroperitoneal ultrasound, complete Technique: Multiple high resolution grayscale images of the retroperitoneum obtained, including kidneys and bladder. Exam date and time:September 08, 2024 1359 hrs. Indications: Acute renal insufficiency on laboratory examination today Findings: Right kidney 11.6 cm renal cortex 2.1 cm Left kidney 11.6 cm renal cortex 2.3 cm No hydronephrosis Bladder contracted around a Garcia catheter No ascites Impression: No hydronephrosis No significant renal cortical thinning
--- NOTE | 2024-09-08 13:14 | ESPR_ITS ---
<Statement entered by Leno Pa MD - 09/10/24 16:07> Agree with plan and examination finding on the note below. Patient seen and examined at bedside today. Labs and imaging reviewed. Patient care discussed with my attending Dr. Lynn and co-resident Dr. Green. Documentation for date of: 09/08/24 Subjective Subjective Interval history: Patient was seen and examined at bedside this AM. Patient's sister, Maggy and nephew Simon were present at bedside. No acute exents overnight. Patient tolerating minimal diet, adequate urine output and mentation is at baseline. Patient denies any abdominal pain, nausea, vomiting and diarrhea. Patient had 5 bowel movements in the past 24 hours Decreased lactulose to 30 g 3 times daily from 4 times daily K 3.3. Repleted with liquid KCl 40 mEq p.o. x 1 Creatinine increased to 2.9 from 2.1. Urine output decreased to 450 cc in 24 hours. Started patient on normal saline maintenance IV fluids at 125 cc/h. Nephrology, Dr Medrano consulted and closely following the case. She recommended normal saline 1 L IV fluid bolus and albumin challenge with 25 g IV 3 times daily for 2 days. Exam Vital Signs Temp Pulse Resp BP Pulse Ox O2 Del Method O2 Flow Rate 99.6 F 73 20 99/58 L 96 Nasal Cannula 1 09/08/24 12:00 09/08/24 12:00 09/08/24 12:00 09/08/24 12:00 09/08/24 12:00 09/08/24 12:09/08/24 12:00 Narrative Exam Constitutional Alert, oriented x 3 in no acute distress. Scleral icterus. HEENT Vision grossly intact. Patent nares. Trachea midline Respiratory Chest normal on inspection and clear auscultation bilaterally Cardiovascular S1 and S2 audible, RRR. No murmurs carotid bruit. No gross JVD. Abdominal Soft and non tender to palpation in all quadrants. BS + Genitourinary No bladder tenderness, no flank pain. Normal to palpation Musculoskeletal Extremities tone within normal limits. No LE edema. Neurological CN II - XII grossly intact. Extremity motor and sensation grossly intact. Skin Warm, dry and intact. No apparent lesions. Psychiatric Patient has good affect, is cooperative Objective Labs 09/09/24 04:53 09/09/24 04:53 Labs: Laboratory Results - last 24 hr 09/08/24 05:29 WBC 11.9 H RBC 2.95 L Hgb 9.5 L Hct 28.5 L MCV 97 MCH 32.2 MCHC 33.3 RDW Std Deviation 75.0 H Plt Count 131 L Neut % (Auto) 74 Lymph % (Auto) 9 L [place] % (Auto) 13 H Eos % (Auto) 3 Baso % (Auto) 0 Neut # (Auto) 8.8 H Lymph # (Auto) 1.1 [place] # (Auto) 1.6 H Eos # (Auto) 0.3 Baso # (Auto) 0.0 Immature Gran # (Auto) 0.06 H Absolute Nucleated RBC 0.00 Immature Gran % 1 H Nucleated RBC % 0 Sodium 137 Potassium 3.3 L Chloride 104 Carbon Dioxide 24.4 Anion Gap 9 BUN 43 H Creatinine 2.9 H D Estim Creat Clear Calc 22.4 L eGFR 22 L BUN/Creatinine Ratio 15 Glucose 118 H Calculated Osmolality 285 Calcium 7.2 L Corrected Calcium 9.0 Phosphorus 3.9 Magnesium 2.4 Total Bilirubin 15.2 H AST 132 H ALT 53 H Alkaline Phosphatase 182 H Total Protein 6.1 Albumin 1.7 L Globulin 4.4 H Albumin/Globulin Ratio 0.4 L ABG Interpretation ABG results: 08/28/24 08/29/24 09/03/24 22:40 10:05 15:24 ABG pH 7.41 7.50 H ABG pCO2 29 L 33 ABG pO2 69 L 63 L ABG HCO3 18 L 25 ABG O2 Saturation 94 94 ABG Base Excess -6 L 2 VBG pH 7.41 VBG pCO2 47 VBG pO2 30 VBG Base Excess 4 H Quality Measures Quality Measures none Advance care planning discussed with:: sibling and other Assessment & Plan Assessment Current Active Medications: Generic Name Dose Route Start Last Admin Trade Name Freq PRN Reason Stop Dose Admin Acetaminophen 325 mg 08/28/24 20:28 Acetaminophen 325 Mg Tablet PO 09/27/24 20:27 Q6H PRN PAIN SCALE 1-3 (mild Albuterol/Ipratropium 3 ml 08/28/24 20:24 08/29/24 23:00 Albuterol/Ipratropium (Duoneb) Rt Janessa 3 Ml Nebu INH 09/27/24 22:59 3 ml Q4HRRT PRN Administration Wheeze Folic Acid 1 mg 08/29/24 09:00 09/08/24 08:38 Folic Acid 1 Mg Tablet PO 09/28/24 08:59 1 mg QDAY JERSON Administration Sodium Chloride 1,000 mls @ 125 mls/hr 09/08/24 10:01 09/08/24 12:32 Ns IV 10/08/24 10:00 125 mls/hr .Q8H JERSON Administration Sodium Chloride 1,000 mls @ 999 mls/hr 09/08/24 13:12 Ns IV 09/08/24 14:12 .Q1H1M ONE Albumin Human 25 gm in 100 mls @ 100 mls/hr 09/08/24 14:00 Albuminar-25 Ivpb IV 09/10/24 13:59 TID JERSON Lactulose 30 gm 09/08/24 14:00 Lactulose Syrup 20 Gm/30 Ml Udc PO 10/08/24 13:59 TID JERSON Protocol Midodrine 5 mg 09/07/24 07:30 09/08/24 01:12 Midodrine 5 Mg Tablet PO 09/29/24 08:24 5 mg TID PRN Administration SBP < 90 Pantoprazole Sodium 40 mg 09/08/24 09:00 09/08/24 08:37 Pantoprazole 40 Mg Tablet PO 10/08/24 08:59 40 mg QDAY JERSON Administration Propranolol HCl 10 mg 09/03/24 21:00 09/08/24 08:38 Propranolol 10 Mg Tablet PO 10/03/24 20:59 10 mg BID JERSON Administration Rifaximin 550 mg 08/28/24 21:00 09/08/24 08:37 Rifaximin 550 Mg Tablet PO 09/10/24 20:59 550 mg BID JERSON Administration Sodium Chloride 5 ml 08/28/24 17:29 08/28/24 18:47 Sodium Chloride Rt Janessa 0.9% 3 Ml Nebu INH 09/27/24 17:28 3 ml PRN PRN Administration SOLN Thiamine HCl 100 mg 08/28/24 20:45 09/08/24 08:37 Thiamine 100 Mg Tablet PO 09/27/24 20:44 100 mg QDAY JERSON Administration Plan Mr. Stack is a 74-year-old male with past medical history of liver cirrhosis secondary to alcohol use disorder, esophageal varices, ?Asthma/COPD, GERD, anxiety and BPH who was BIBA to [facility] emergency department from home on 08/28/2024 with a chief complaint of altered mental status. Patient will be admitted for workup and management of hepatic encephalopathy and acute blood loss anemia. 1. Acute kidney injury prerenal versus renal 2. Proteinuria Baseline CR 0.5. CR 1.1??>2.9 Etiology: AIN, medication side effect, dehydration, hepatorenal syndrome Urine creatinine 216, urine random protein 100, urine sodium <15, urine potassium 50, urine chloride <20. Plan: ? Renal ultrasound ordered ? Normal saline maintenance IV fluids at 125 cc/h ? Normal saline 1 L IV fluid bolus ? Albumin 25 g IV 3 times daily from [09/08 - 09/10] as per nephrology recommendations ? Midodrine 5 Mg p.o. 3 times daily as needed for SBP <90 ? Encourage p.o. fluid intake ? Renally dose medication ? Avoid nephrotoxic agents ? Car Wash Manager, Dr Medrano consulted and closely following the case. Appreciate recommendations 3. Altered mental status secondary to acute metabolic encephalopathy - resolving At baseline patient is conversational and oriented x 3. On admission patient was altered and ANO x 0. On exam patient's pupils reactive to light nonverbal and unresponsive to sternal rub. DDx: Hepatic encephalopathy, medication side effect, TIA CT brain was negative for hemorrhage, mass effect or midline shift Ammonia 57 Patient now oriented x 3. Patient had 5+ bowel movements in 24 hours, decreased lactulose to 30 g 3 times daily from 4 times daily Plan: ? Aspiration precautions ? Head of bed elevation ? Neurochecks every 4 hourly ? Decreased lactulose to 30 g p.o. 3 times daily from 4 times daily ? Continue rifaximin 550 Mg p.o. twice daily ? Continue thiamine p.o. 4. Likely aspiration pneumonia - resolved Patient presented with altered mental status On exam patient has decreased air entry at the bases Chest x-ray showed trace fluid in horizontal fissure right lung. Completed 7 days of Augmentin 1 tab p.o. twice daily from [08/30?09/06] 5. Hypokalemia 6. Hypophosphatemia - resolved K3.3 , Phos 1.9 ---> 3.9 Plan: ? Repleted with KCl 40 mEq p.o. x 1 7. Acute blood loss anemia secondary to GI bleed?resolving 8. Likely upper GI bleed secondary to esophageal varices?resolving 9. Decompensated alcoholic cirrhosis with coagulopathy and thrombocytopenia 10. Hyperbilirubinemia 11. Hepatitis C Patient was found unconscious in a pool of coffee-ground emesis On admission patient's Hb 7.6 and he received 2 units PRBC. Post H&H 7.4 T.Bili 3.8 ---> 15.2 Plt 103 Hepatitis C antibody positive [08/31/2024] EGD completed on 08/29/2024 findings include: Diffuse hypertensive portal gastropathy with mucosal oozing of blood and 1+ esophageal varices not large enough for band ligation.. Meld?NA score 35 points. 65-66% 90-day mortality. Child?Hernandez class C. 12 points. Life expectancy 1-3 years. Abdominal surgery mortality 82% Completed 5 days of octreotide infusion from [08/29 - 09/02] Plan: ? Continue cardiac diet. ? Continue Protonix 40 Mg p.o. daily ? GI, Dr. Hall consulted and closely following the case. Appreciate recommendations. 12. Asthma 13. COPD Home medication Trelegy inhaler pCO2 47 Plan: ? DuoNebs as needed 14. Low TSH 15. Low T4 TSH 0.39, T4 0.84 Likely normal based on patient age 14. Goals of care discussion - SNF [09/01/2024] spoke to next of kin, Maggy Romero over the phone at [phone]. Briefly updated her on patient's hospital course and asked her to come in today for a goals of care discussion. Ms. Romero agreed for 3 PM and said she would call if any change of plans. At baseline she says that patient is independent and can carry out all his ADLs. He also has home health who visits him 6 days a week for a total of 21 hours. Patient's next of kin did not show up today. Will reach out again tomorrow. [09/02/2024] Spoke to next of kin, Maggy Romero over the phone at [phone]. Briefly updated her on patient's hospital course and asked her to come in today for a goals of care discussion. She said she might be able to come in tomorrow for an in person visit. Offered her the options of longterm facility versus hospice. She needs more time to think about it. [09/03/2024] Spoke to next of kin, Maggy Romero and her son at bedside. They expressed their wishes for longterm. All questions asked were answered and concerns addressed. [09/06/2024] social insurance administrator in contact with family members, patient to be discharged to SNF, pending authorization and voiding trial Health maintenance: Disposition: Pending SNF once CONNOR resolves Diet: Cardiac Lines: pIVs GI Prophylaxis: Pantoprazole Thrombo Prophylaxis: SCDs Code status: FULL CODE Plan of care discussed with Attending Dr. Lynn and PGY3 Dr. Thierno Green MD PGY 1 Attending Provider Attestation/Addendum I attest that I was physically present for the evaluation, physical examination, lab and imaging review of the patient with the residents. I discussed the case with the residents and agree with the findings and plans of care as documented above. At bedside today, appears more alert compared to yesterday. Oriented x 3. Has been able to tolerate diet but oral intake is low. Denies any abdominal pain, nausea or vomiting. Had 5 bowel movements in last 24 hours. Noted that patient's creatinine has worsened from 2.1 yesterday to 2.9 today. Given worsening of kidney function despite IV hydration, we will increase the IV fluid to 125 cc/h with 1 L normal saline bolus. Obtained nephrology consult, recommended albumin challenge with 25 g IV 3 times daily for 2 days, patient restarted on the same, appreciate recommendations. Added midodrine 5 mg 3 times daily as needed. Patient's total bilirubin noted to be uptrending. Family at bedside updated about patient's current condition and further management plans. Mike Lynn MD
[2024-09-08 14:29] LABS: Collection Type, Urine Catheter
--- NOTE | 2024-09-08 14:33 | PD.NEPHCONS ---
History of Present Illness Data of Consult Consult date: 09/08/24 Requesting Physician: Esteban Mccallum MD Primary Care Provider: Physician No Primary/Family Consult Narrative Reason for consult: Acute renal failure History of present illness: Chart review done. Mr. Stack is a 74-year-old male with past medical history of liver cirrhosis secondary to alcohol use disorder, esophageal varices, ?Asthma/COPD, GERD, anxiety and BPH presented to [facility] on 08/28/2024 with a chief complaint of altered mental status. per EMS patient was found to be naked and altered. Noted to have dark blood all over the floor. During the hospital course patient had a GI bleed and was seen by Dr. Hall. Also noted to have metabolic encephalopathy-lactulose, rifaximin were initiated. For the last 24 hours his urine output has dropped significantly and renal consultation was requested. CT brain was negative. 09/08/2024 patient currently seen in telemetry.His current medications included folic acid, lactulose, Protonix, propranolol, rifaximin, thiamine.WBC 11.9, hemoglobin 9.5, platelets 131. Sodium 137, potassium 3.3, BUN 43, creatinine 2.9, calcium 9, phosphorus 3.9, total bilirubin 15.2, AST 132, ALT 53, albumin 1.7. Urine showed concentrated urine with blood and bilirubin. Urine sodium less than 15. Talk screen was negative. Hep panel showed AB and AB-. Hep C positive. Renal ultrasound this afternoon showed no hydronephrosis. No cortical thinning consistent with normal kidneys. Head CT on admission was negative. cc:: cc: Esteban Mccallum MD Review of Systems Review of Systems ROS Unobtainable: unobtainable due to mental status Past Medical History Past Medical History NEUROLOGIC: Positive Neurological Disorders and Head Trauma; Negative Seizures CARDIAC: Positive Cardiac Disorders, Angina and Coronary Artery Disease; Negative Congestive Heart Failure RESPIRATORY: Positive Chronic Obstructive Pulmonary Disease (COPD) and Asthma; Negative Emphysema, Pneumonia or Tuberculosis GASTROINTESTINAL: Positive Gastrointestinal Disorders, Cirrhosis, Gastrointestinal Bleed and Esophageal Varices GENITOURINARY: Positive Benign Prostatic Hyperplasia; Negative Genitourinary Disorders or Renal Disease MUSCULOSKELETAL: Positive Musculoskeletal Disorders and Arthritis ENT: Positive Head Trauma ENDOCRINE: Negative Endocrine Disorders, Diabetes Mellitus Type 1 or Diabetes Mellitus Type 2 HEMATOLOGIC: Positive Anemia; Negative Blood Disorders or Sickle Cell Disease PSYCHO/SOCIAL: Positive Depression, Anxiety and Post Traumatic Stress Disorder; Negative Depression OTHER HISTORY: Positive Blood Transfusions and Measles; Negative Autoimmune Disease, Blood Transfusion Reaction, Anesthesia Reactions or Cancer Surgical History SURGICAL: Positive Cardiac Surgery, Coronary Stent and Arthroscopy Social History SMOKING STATUS: Unknown if ever smoked OCCUPATION: Retired Past Medical History Comments PMH COMMENT: Medical history: As stated above Surgical history: Patient has stent placed with Dr. Beebe in 2008 Allergies: NKDA Medications: Pending med rec. 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 Patient used to have heavy alcohol use disorder, last drink was 4 years ago, denies tobacco or illicit drug use. Meds Home Medications and Allergies Home Medications ?Medication ?Instructions ?Recorded ?Confirmed ?Type alprazolam 0.5 mg tablet 0.5 mg PO BID PRN Anxiety 06/25/23 11/22/23 History hydrocodone 10 mg-acetaminophen 1 tab PO Q6H PRN Pain 06/25/23 11/22/23 History 325 mg tablet tamsulosin 0.4 mg capsule 0.4 mg PO DAILY 06/25/23 03/19/24 History fluticasone fur. 200 mcg-umeclid 1 inh inhalation QDAY 07/11/24 07/11/24 History 62.5 mcg-vilant 25 mcg inhalat.powder (Trelegy Ellipta) Allergies Allergy/AdvReac Type Severity Reaction Status Date / Time No Known Allergies Allergy Unknown Verified 07/10/24 14:08 Exam Vital Signs Temp Pulse Resp BP Pulse Ox O2 Del Method O2 Flow Rate 37.6 C 73 20 99/58 L 96 Nasal Cannula 1 09/08/24 12:09/08/24 12:09/08/24 12:09/08/24 12:09/08/24 12:09/08/24 12:09/08/24 12:00 Narrative Exam GENERAL APPEARANCE patient currently seen in telemetry Scleral icterus, jaundice noted NECK: Neck supple, no JVD or bruit CARDIOVASCULAR: Heart regular, no murmurs LUNGS/CHEST: Chest clear to auscultation. No rales, rhonchi, wheezing ABDOMEN: Distended with decreased bowel sounds. EXTREMITIES: No edema, clubbing or cyanosis. SKIN: Jaundiced MUSCULOSKELETAL: In bed NEUROLOGICAL : Completely altered-barely arousable Results Labs 09/08/24 05:29 09/08/24 05:29 Labs: Short CBC 09/08/24 Range/Units 05:29 WBC 11.9 H (3.8-10.6) Thou/mm3 Hgb 9.5 L (13.5-16.0) g/dL Hct 28.5 L (41.0-53.0) % Plt Count 131 L (140-440) Thou/mm3 BMP 09/08/24 05:29 Sodium 137 Potassium 3.3 L Chloride 104 Carbon Dioxide 24.4 BUN 43 H Creatinine 2.9 H D Glucose 118 H Calcium 7.2 L Liver Function 09/08/24 Range/Units 05:29 Total Bilirubin 15.2 H (0.3-1.2) mg/dL AST 132 H (0-34) U/L ALT 53 H (10-49) U/L Alkaline Phosphatase 182 H (46-116) U/L Albumin 1.7 L (3.4-4.8) gm/dL ABG Interpretation ABG results: 08/28/24 08/29/24 09/03/24 22:40 10:05 15:24 ABG pH 7.41 7.50 H ABG pCO2 29 L 33 ABG pO2 69 L 63 L ABG HCO3 18 L 25 ABG O2 Saturation 94 94 ABG Base Excess -6 L 2 VBG pH 7.41 VBG pCO2 47 VBG pO2 30 VBG Base Excess 4 H Assessment & Plan Assessment and plan (1) Acute renal failure (ARF): Status: Acute Assessment and plan: Acute renal failure with worsening renal function and decreased urine output-rule out hepatorenal syndrome versus prerenal azotemia with fluctuations in blood pressure. Hold off on diuretics. Give fluids, albumin, midodrine today. If no improvement in renal function then the diagnosis will be made for HRS. If HRS type I prognosis remains guarded. (2) Acute upper gastrointestinal bleeding: Status: Acute Assessment and plan: Dr. Hall on the case. On PPI (3) Cirrhosis of liver: Status: Acute Assessment and plan: Patient seems to have decompensated liver cirrhosis with GI bleed, varices, hepatic encephalopathy, worsening renal function, thrombocytopenia, anemia. GI on the case. On lactulose, rifaximin patient has a prolonged hospital course for the last 11 days. (4) Hepatic encephalopathy: Status: Acute Assessment and plan: On lactulose (5) Anemia: Status: Acute Assessment and plan: As needed transfusions Additional Assessment & Plan Additional Plan: Thank you Esteban for allowing me to participate in the care of Mr. Stack Prognosis remains poor without liver transplant.
[2024-09-08] MEDS: SODIUM CHLORIDE 0.9% 1000 ML 1,000 ML 999 ML IV (14:41)
[2024-09-08 14:46] LABS: Bacteria,Urine Rare; Bilirubin,Urine 4+ (Negative); Blood,Urine 2+ (Negative); Color,Urine Drk-Yellow (Lt Yel-Yel); Glucose, Urine Trace (Negative); Ketones,Urine Negative (Negative); Leukocyte Esterase,Urine Positive (Negative); Nitrite,Urine Negative (Negative); PH,Urine 5.5 (5.0-7.0); Protein,Urine Trace (Neg - Trace); RBC,Urine 31 /hpf (0-3); Specific Gravity,Urine 1.018 (1.001-1.035); Squamous Epithelial Cell,Urine 1 /hpf (0-5); Urobilinogen,Urine Negative mg/dL (0.0-1.0); WBC,Urine 48 /hpf (0-5)
[2024-09-08] MEDS: LACTULOSE SYRUP 20 GM/30 ML UDC 30 GM PO ×2 (14:46→21:28)
[2024-09-08] MEDS: ALBUMIN HUMAN 25% IVPB 25 GM/100 ML BTL IV ×2 (14:46→21:29)
[2024-09-08 14:47] LABS: Clarity,Urine Hazy (Clear/Hazy)
[2024-09-08 15:02] LABS: Chloride,Urine Random < 20.0 mMol/L (55.0-125.0); Creatinine,Random Urine 216 mg/dL (30-125); Potassium,Urine Random 50 mMol/L (12-62); Protein Total, Random Urine 100 mg/dL (1-14); Sodium,Urine Random < 15.0 mMol/L (20.0-110.0)
--- NOTE | 2024-09-08 17:43 | PD.IMPROG ---
Documentation for date of: 09/08/24 Subjective Subjective Interval history: Patient evaluated Hemoglobin hematocrit 9.5 and 28.5 Patient more alert Exam Vital Signs Temp Pulse Resp BP Pulse Ox O2 Del Method O2 Flow Rate 97.3 F 71 17 121/70 95 Room Air 1 09/08/24 16:00 09/08/24 16:00 09/08/24 16:00 09/08/24 16:00 09/08/24 16:00 09/08/24 16:00 09/08/24 12:00 Objective Labs 09/08/24 05:29 09/08/24 05:29 Labs: Laboratory Results - last 24 hr 09/08/24 09/08/24 05:29 13:00 WBC 11.9 H RBC 2.95 L Hgb 9.5 L Hct 28.5 L MCV 97 MCH 32.2 MCHC 33.3 RDW Std Deviation 75.0 H Plt Count 131 L Neut % (Auto) 74 Lymph % (Auto) 9 L [place] % (Auto) 13 H Eos % (Auto) 3 Baso % (Auto) 0 Neut # (Auto) 8.8 H Lymph # (Auto) 1.1 [place] # (Auto) 1.6 H Eos # (Auto) 0.3 Baso # (Auto) 0.0 Immature Gran # (Auto) 0.06 H Absolute Nucleated RBC 0.00 Immature Gran % 1 H Nucleated RBC % 0 Sodium 137 Potassium 3.3 L Chloride 104 Carbon Dioxide 24.4 Anion Gap 9 BUN 43 H Creatinine 2.9 H D Estim Creat Clear Calc 22.4 L eGFR 22 L BUN/Creatinine Ratio 15 Glucose 118 H Calculated Osmolality 285 Calcium 7.2 L Corrected Calcium 9.0 Phosphorus 3.9 Magnesium 2.4 Total Bilirubin 15.2 H AST 132 H ALT 53 H Alkaline Phosphatase 182 H Total Protein 6.1 Albumin 1.7 L Globulin 4.4 H Albumin/Globulin Ratio 0.4 L Ur Collection Type Catheter Urine Color Drk-Yellow A Urine Clarity Hazy Urine pH 5.5 Ur Specific [place] 1.018 Urine Protein Trace Urine Glucose (UA) Trace Urine Ketones Negative Urine Blood 2+ A Urine Nitrite Negative Urine Bilirubin 4+ A Urine Urobilinogen (Auto) Negative Ur Leukocyte Esterase Positive Urine RBC 31 H Urine WBC 48 H Ur Squamous Epith Cells 1 Urine Bacteria Rare Ur Random Creatinine 216 H U Random Total Protein 100 H Ur Random Sodium < 15.0 L Ur Random Potassium 50 Ur Random Chloride < 20.0 L Ur Random Urea Nitrogn 362.0 Impressions Impression: # Acute upper GI bleed # Acute posthemorrhagic anemia # Mucosal oozing of blood from the gastric mucosa due to hypertensive portal gastropathy # Hepatic encephalopathy improving ABG Interpretation ABG results: 08/28/24 08/29/24 09/03/24 22:40 10:05 15:24 ABG pH 7.41 7.50 H ABG pCO2 29 L 33 ABG pO2 69 L 63 L ABG HCO3 18 L 25 ABG O2 Saturation 94 94 ABG Base Excess -6 L 2 VBG pH 7.41 VBG pCO2 47 VBG pO2 30 VBG Base Excess 4 H Assessment & Plan A&P Narrative # Acute upper GI bleed in the form of melena # Acute posthemorrhagic anemia # Acute hepatic encephalopathy # Chronic liver disease with thrombocytopenia abnormal liver function test and coagulopathy secondary to alcohol Plan Agree with the blood transfusion give patient 2 units of PRBC Octreotide infusion Lactulose and Xifaxan Consent will be obtained from the sister who makes that decision for fiberoptic esophagogastroduodenoscopy with possible therapeutic intervention under intravenous moderate sedation Prognosis guarded Thank you for the opportunity to participate in the care of this patient Time Spent With Patient Time: Total time spent is greater than 50% in coordination of care (as documented) at patient's floor/unit and/or counseling patient:
[2024-09-08] MEDS: ALBUTEROL/IPRATROPIUM (Duoneb) RT SOL 3 ML NEBU INH (20:57)
--- NOTE | 2024-09-08 21:17 | XR_ITS ---
Examination: AP chest single view Technique one AP portable semiupright chest single view Exam date and time: September 08, 2024 2116 hrs. Comparison August 28, 2024 Indications: Shortness of breath today. Findings: Significant elevation right hemidiaphragm No significant right base Diffuse opacities left lung consistent with pneumonia Mild prominence left ventricle Significant vascular congestion Impression: Diffuse left lung pneumonia
--- NOTE | 2024-09-08 21:37 | XR_ITS ---
Examination: Abdomen AP single view Technique: AP portable supine abdomen, single view Exam date and time: September 08, 2024 2150 hours Indications: Distended abdomen today Findings: Air distended stomach Moderately air distended colon No free air The osseous structures are demineralized Impression: Moderately air distended stomach Moderate colonic ileus
--- NOTE | 2024-09-08 23:40 | XR_ITS ---
Examination: AP chest single view Technique: AP portable chest single view Indications: Post orogastric tube placement Exam date and time: September 08, 1999 2544 hours Findings: Orogastric tube in the stomach satisfactory position Persistent moderate elevation right hemidiaphragm with subsegmental atelectasis right base Persistent left lung pneumonia Stable cardiac contour Impression: Orogastric tube in stomach, the tip is below the level of the film
[2024-09-09] VITALS (13 sets, daily range): BP systolic 87–114; BP diastolic 51–69; PULSE 60–98; RESP 16–92; TEMP 36.1–37; O2SAT 91–96; BMI 13.0
[2024-09-09 05:25] LABS: Basophils % (Auto) 0 % (0-2.5); Eosinophils # (Auto) 0.3 Thou/mm3 (0.0-0.5); Eosinophils % (Auto) 3 % (0-10); Hematocrit 26.4 % (41.0-53.0); Immature Granulocytes % (Auto) 1 % (0-0); Immature Granulocytes Auto 0.05 Thou/mm3 (0.00-0.00); Lymphocytes % (Auto) 9 % (10-50); Mean Corpuscular HGB Conc 34.1 g/dl (31.0-37.0); Mean Corpuscular Hemoglobin 32.4 pg (25.0-35.0); Mean Corpuscular Volume 95 fL (80-100); Monocytes # (Auto) 1.3 Thou/mm3 (0.0-0.8); Monocytes % (Auto) 12 % (0-12); Neutrophils # (Auto) 8.4 Thou/mm3 (1.8-7.7); Neutrophils % (Auto) 76 % (37-80); Nucleated Red Blood Cell % 0 /100 WBC (0); Platelet Count 109 Thou/mm3 (140-440); Red Blood Count 2.78 Miln/mm3 (4.50-5.90)
[2024-09-09] MEDS: MIDODRINE 5 MG TABLET PO (05:25)
[2024-09-09] MEDS: ALBUMIN HUMAN 25% IVPB 25 GM/100 ML BTL IV ×3 (05:25→21:44)
[2024-09-09] MEDS: LACTULOSE SYRUP 20 GM/30 ML UDC 30 GM PO ×3 (05:25→21:45)
[2024-09-09 06:00] LABS: Alanine Aminotransferase 48 U/L (10-49); Albumin, Serum 2.1 gm/dL (3.4-4.8); Albumin/Globulin Ratio 0.5 (1.2-2.2); Alkaline Phosphatase 155 U/L (46-116); Anion Gap 9 (7-16); Aspartate Amino Transferase 113 U/L (0-34); BUN/Creatinine Ratio 12 Ratio (12-20); Blood Urea Nitrogen 44 mg/dL (9-23); Calcium 7.6 mg/dL (8.3-10.6); Calcium (Corrected) 9.1 mg/dL (8.5-10.1); Carbon Dioxide 22.1 mMol/L (20.0-31.0); Chloride 106 mMol/L (98-107); Creatinine (Component) 3.6 mg/dL (0.6-1.3); Glucose 90 mg/dL (74-106); Magnesium 2.5 mg/dL (1.6-2.6); Osmolality,Calculated 285 (275-295); Phosphorous 4.3 mg/dL (2.4-5.1); Potassium 3.4 mMol/L (3.4-5.1); Sodium 137 mMol/L (136-145); Total Protein 6.1 gm/dL (5.7-8.2); eGFR 17 See Note
[2024-09-09 06:52] LABS: Vitamin B1 (Thiamine)* <6 nmol/L (8-30)
[2024-09-09] MEDS: MIDODRINE 5 MG TABLET 10 MG PO ×3 (08:27→21:45)
[2024-09-09] MEDS: PANTOPRAZOLE 40 MG TABLET PO (08:28)
[2024-09-09] MEDS: PROPRANOLOL 10 MG TABLET PO ×2 (08:28→21:45)
[2024-09-09] MEDS: FOLIC ACID 1 MG TABLET PO (08:28)
[2024-09-09] MEDS: THIAMINE 100 MG TABLET PO (08:28)
[2024-09-09] MEDS: rifaximin 550 MG TABLET PO ×2 (08:28→21:45)
[2024-09-09 08:34] LABS: INR 2.3 (0.9-1.3); Partial Thromboplastin Time 65.9 Seconds (22.0-36.0); Prothrombin Time 23.3 Seconds (9.0-12.2)
--- NOTE | 2024-09-09 09:02 | XR_ITS ---
Examination: Abdomen AP single view Technique: AP portable supine abdomen, single view Exam date and time: 09/09/20242024 hours INDICATIONS: Abdominal pain today FINDINGS: Mild small bowel ileus Orogastric tube tip in the stomach satisfactory position No free air IMPRESSION: Mild small bowel ileus pattern
--- NOTE | 2024-09-09 09:03 | XR_ITS ---
Examination: Abdomen sonogram, complete Date and time of exam: September 09, 2024 1317 hours INDICATIONS: Abdominal distention beginning 2 days ago. Technique: Multiple real-time grayscale transabdominal sonographic images of the abdomen have been obtained. Findings: Gallbladder sludge No gallstones Gallbladder wall 0.5 cm but the patient does have mild free fluid in the upper right abdomen Common bile duct 0.5 cm Aorta obscured by bowel gas Liver 10.3 cm fatty liver Normal hepatopedal portal venous flow IVC obscured by bowel gas Right kidney 11.8 cm cortex 1.8 cm Left kidney 12.7 cm renal cortex 2.2 cm Mild bilateral renal parenchymal scar formation Spleen 11.4 cm IMPRESSION: Minimal ascites Gallbladder sludge Gallbladder wall is thickened which may relate to the patient's free fluid in the abdomen, suggest HIDA scan follow-up as clinically warranted
[2024-09-09] MEDS: predniSONE 20 MG TABLET 40 MG PO (09:08)
--- NOTE | 2024-09-09 10:25 | ESPR_ITS ---
Documentation for date of: 09/09/24 Subjective Subjective Interval history: Chart review done. Mr. Stack is a 74-year-old male with past medical history of liver cirrhosis secondary to alcohol use disorder, esophageal varices, ?Asthma/COPD, GERD, anxiety and BPH presented to [facility] on 08/28/2024 with a chief complaint of altered mental status. per EMS patient was found to be naked and altered. Noted to have dark blood all over the floor. During the hospital course patient had a GI bleed and was seen by Dr. Hall. Also noted to have metabolic encephalopathy-lactulose, rifaximin were initiated. For the last 24 hours his urine output has dropped significantly and renal consultation was requested. CT brain was negative. 09/08/2024 patient currently seen in telemetry.His current medications included folic acid, lactulose, Protonix, propranolol, rifaximin, thiamine.WBC 11.9, hemoglobin 9.5, platelets 131. Sodium 137, potassium 3.3, BUN 43, creatinine 2.9, calcium 9, phosphorus 3.9, total bilirubin 15.2, AST 132, ALT 53, albumin 1.7. Urine showed concentrated urine with blood and bilirubin. Urine sodium less than 15. Talk screen was negative. Hep panel showed AB and AB-. Hep C positive. Renal ultrasound this afternoon showed no hydronephrosis. No cortical thinning consistent with normal kidneys. Head CT on admission was negative. 09/09/2024 patient currently seen in telemetry. Today he seems to be more alert and awake. Last night hospitalist team called-patient complaining of abdominal pain and shortness of breath. Chest x-ray showed dilated bowel loops. Recommended KUB which showed ileus-NG tube was inserted overnight. Patient currently seems to be feeling little bit better. Denies any abdominal pain. Hemoglobin 9, platelets 109, WBC 11, sodium 137, potassium 3.4, BUN 44, creatinine 3.6, GFR 17, bilirubin significantly elevated to 19, AST 113, ALT 48, alk phos 155, albumin 2.1 urine sodium less than 15 urine output 225 mL/day Noted team started the patient on steroids. Patient has a decompensated liver cirrhosis. Hep C positive. Viral load pending. Dr. Hall on the case. Patient currently on albumin, midodrine, normal saline to rule out hepatorenal syndrome. Will continue the same for another 24 hours. If no improvement then HRS 1 diagnosis will be made Review of Systems Review of Systems Narrative Review of Systems: Patient more alert and awake. Able to respond and able to move his extremities. Exam Vital Signs Temp Pulse Resp BP Pulse Ox O2 Del Method O2 Flow Rate 36.9 C 62 18 111/58 L 92 L Room Air 2 09/09/24 08:00 09/09/24 08:35 09/09/24 08:35 09/09/24 08:28 09/09/24 08:35 09/09/24 08:00 09/09/24 00:00 Narrative Exam GENERAL APPEARANCE patient currently seen in telemetry Has NG tube to suction Scleral icterus, jaundice noted NECK: Neck supple, no JVD or bruit CARDIOVASCULAR: Heart regular, no murmurs LUNGS/CHEST: Chest clear to auscultation. No rales, rhonchi, wheezing ABDOMEN: Distended with decreased bowel sounds. EXTREMITIES: No edema, clubbing or cyanosis. SKIN: Jaundiced MUSCULOSKELETAL: In bed NEUROLOGICAL : More alert and awake Objective Labs 09/09/24 04:53 09/09/24 04:53 Labs: Laboratory Results - last 24 hr 08/29/24 09/08/24 09/09/24 05:20 13:00 04:53 WBC 11.0 H RBC 2.78 L Hgb 9.0 L Hct 26.4 L MCV 95 MCH 32.4 MCHC 34.1 RDW Std Deviation 73.0 H Plt Count 109 L Neut % (Auto) 76 Lymph % (Auto) 9 L [place] % (Auto) 12 Eos % (Auto) 3 Baso % (Auto) 0 Neut # (Auto) 8.4 H Lymph # (Auto) 1.0 [place] # (Auto) 1.3 H Eos # (Auto) 0.3 Baso # (Auto) 0.0 Immature Gran # (Auto) 0.05 H Absolute Nucleated RBC 0.00 Immature Gran % 1 H Nucleated RBC % 0 PT 23.3 H INR 2.3 H APTT 65.9 H D Sodium 137 Potassium 3.4 Chloride 106 Carbon Dioxide 22.1 Anion Gap 9 BUN 44 H Creatinine 3.6 H D Estim Creat Clear Calc 18.0 L eGFR 17 L BUN/Creatinine Ratio 12 Glucose 90 Calculated Osmolality 285 Calcium 7.6 L Corrected Calcium 9.1 Phosphorus 4.3 Magnesium 2.5 Total Bilirubin 19.0 H* D Direct Bilirubin 12.0 H AST 113 H ALT 48 Alkaline Phosphatase 155 H D Total Protein 6.1 Albumin 2.1 L Globulin 4.0 H Albumin/Globulin Ratio 0.5 L Thiamine (Vit B1) [place] <6 L Ur Collection Type Catheter Urine Color Drk-Yellow A Urine Clarity Hazy Urine pH 5.5 Ur Specific [place] 1.018 Urine Protein Trace Urine Glucose (UA) Trace Urine Ketones Negative Urine Blood 2+ A Urine Nitrite Negative Urine Bilirubin 4+ A Urine Urobilinogen (Auto) Negative Ur Leukocyte Esterase Positive Urine RBC 31 H Urine WBC 48 H Ur Squamous Epith Cells 1 Urine Bacteria Rare Ur Random Creatinine 216 H U Random Total Protein 100 H Ur Random Sodium < 15.0 L Ur Random Potassium 50 Ur Random Chloride < 20.0 L Ur Random Urea Nitrogn 362.0 Misc Test Result See Sep Rpt ABG Interpretation ABG results: 08/28/24 08/29/24 09/03/24 22:40 10:05 15:24 ABG pH 7.41 7.50 H ABG pCO2 29 L 33 ABG pO2 69 L 63 L ABG HCO3 18 L 25 ABG O2 Saturation 94 94 ABG Base Excess -6 L 2 VBG pH 7.41 VBG pCO2 47 VBG pO2 30 VBG Base Excess 4 H Assessment & Plan Assessment and plan (1) Acute renal failure (ARF): Status: Acute (2) Acute upper gastrointestinal bleeding: Status: Acute (3) Cirrhosis of liver: Status: Acute (4) Hepatic encephalopathy: Status: Acute (5) Anemia: Status: Acute Additional Assessment & Plan Additional Plan: (1) Acute renal failure (ARF): Status: Acute Assessment and plan: Acute renal failure with worsening renal function and decreased urine output- rule out hepatorenal syndrome versus prerenal azotemia with fluctuations in blood pressure. Hold off on diuretics. Give fluids, albumin, midodrine today. If no improvement in renal function then the diagnosis will be made for HRS. If HRS type I prognosis remains guarded. (2) Acute upper gastrointestinal bleeding: Status: Acute Assessment and plan: Dr. Hall on the case. On PPI (3) Cirrhosis of liver: Status: Acute Assessment and plan: Patient seems to have decompensated liver cirrhosis with GI bleed, varices, hepatic encephalopathy, worsening renal function, thrombocytopenia, anemia. GI on the case. On lactulose, rifaximin patient has a prolonged hospital course for the last 11 days. Currently on steroids. Now with ileus-NG tube was placed. (4) Hepatic encephalopathy: Status: Acute Assessment and plan: On lactulose (5) Anemia: Status: Acute Assessment and plan: As needed transfusions Thank you Esteban for allowing me to participate in the care of Mr. Stack Prognosis remains poor without liver transplant. Quality - progress note Quality Measures Quality Measures: VTE prophylaxis Reason for Continued Stay Reason for Continued Stay: further monitoring
--- NOTE | 2024-09-09 12:01 | ESPR_ITS ---
<Statement entered by Checo Ignacio MD - 09/10/24 13:45> I discussed with and supervised the human resource intern physician involved in the care of this patient. Patient assessment and plan was discussed with entire medicine team, including my attending. I agree with the assessment and plan as documented by human resource intern doctor. Patient care was discussed with my attending physician Dr. Leah Ignacio, PGY-2 Documentation for date of: 09/09/24 Subjective Subjective Interval history: Patient was seen and examined at bedside this AM. Patient's sister, Maggy and nephew Simon were present at bedside. No acute exents overnight. Patient tolerating minimal diet, adequate urine output and mentation is at baseline. Patient denies any abdominal pain, nausea, vomiting and diarrhea. Patient had 3 bowel movements in the past 24 hours Creatinine increased to 3.6 from 2.9. Urine output decreased to 255 cc in 24 hours. Started patient on normal saline maintenance IV fluids at 125 cc/h. Nephrology, Dr Medrano consulted and closely following the case. Discussed case With gambreler, Dr. Hall. He recommended to obtain HCV PCR quant. Also recommends that patient may benefit from steroids. Exam Vital Signs Temp Pulse Resp BP Pulse Ox O2 Del Method O2 Flow Rate 98.5 F 62 18 111/58 L 92 L Room Air 2 09/09/24 08:00 09/09/24 08:35 09/09/24 08:35 09/09/24 08:28 09/09/24 08:35 09/09/24 08:00 09/09/24 00:00 Narrative Exam Constitutional Alert, oriented x 3 in no acute distress. Scleral icterus. HEENT Vision grossly intact. Patent nares. Trachea midline Respiratory Chest normal on inspection and clear auscultation bilaterally Cardiovascular S1 and S2 audible, RRR. No murmurs carotid bruit. No gross JVD. Abdominal Soft, mildly distended and non tender to palpation in all quadrants. BS + Genitourinary No bladder tenderness, no flank pain. Normal to palpation Musculoskeletal Extremities tone within normal limits. No LE edema. Neurological CN II - XII grossly intact. Extremity motor and sensation grossly intact. Skin Warm, dry and intact. No apparent lesions. Psychiatric Patient has good affect, is cooperative Objective Labs 09/09/24 04:53 09/09/24 04:53 Labs: Laboratory Results - last 24 hr 08/29/24 09/08/24 09/09/24 05:20 13:00 04:53 WBC 11.0 H RBC 2.78 L Hgb 9.0 L Hct 26.4 L MCV 95 MCH 32.4 MCHC 34.1 RDW Std Deviation 73.0 H Plt Count 109 L Neut % (Auto) 76 Lymph % (Auto) 9 L [place] % (Auto) 12 Eos % (Auto) 3 Baso % (Auto) 0 Neut # (Auto) 8.4 H Lymph # (Auto) 1.0 [place] # (Auto) 1.3 H Eos # (Auto) 0.3 Baso # (Auto) 0.0 Immature Gran # (Auto) 0.05 H Absolute Nucleated RBC 0.00 Immature Gran % 1 H Nucleated RBC % 0 PT 23.3 H INR 2.3 H APTT 65.9 H D Sodium 137 Potassium 3.4 Chloride 106 Carbon Dioxide 22.1 Anion Gap 9 BUN 44 H Creatinine 3.6 H D Estim Creat Clear Calc 18.0 L eGFR 17 L BUN/Creatinine Ratio 12 Glucose 90 Calculated Osmolality 285 Calcium 7.6 L Corrected Calcium 9.1 Phosphorus 4.3 Magnesium 2.5 Total Bilirubin 19.0 H* D Direct Bilirubin 12.0 H AST 113 H ALT 48 Alkaline Phosphatase 155 H D Total Protein 6.1 Albumin 2.1 L Globulin 4.0 H Albumin/Globulin Ratio 0.5 L Thiamine (Vit B1) [place] <6 L Ur Collection Type Catheter Urine Color Drk-Yellow A Urine Clarity Hazy Urine pH 5.5 Ur Specific [place] 1.018 Urine Protein Trace Urine Glucose (UA) Trace Urine Ketones Negative Urine Blood 2+ A Urine Nitrite Negative Urine Bilirubin 4+ A Urine Urobilinogen (Auto) Negative Ur Leukocyte Esterase Positive Urine RBC 31 H Urine WBC 48 H Ur Squamous Epith Cells 1 Urine Bacteria Rare Ur Random Creatinine 216 H U Random Total Protein 100 H Ur Random Sodium < 15.0 L Ur Random Potassium 50 Ur Random Chloride < 20.0 L Ur Random Urea Nitrogn 362.0 Misc Test Result See Sep Rpt ABG Interpretation ABG results: 08/28/24 08/29/24 09/03/24 22:40 10:05 15:24 ABG pH 7.41 7.50 H ABG pCO2 29 L 33 ABG pO2 69 L 63 L ABG HCO3 18 L 25 ABG O2 Saturation 94 94 ABG Base Excess -6 L 2 VBG pH 7.41 VBG pCO2 47 VBG pO2 30 VBG Base Excess 4 H Quality Measures Quality Measures none Advance care planning discussed with:: patient Assessment & Plan Assessment Current Active Medications: Generic Name Dose Route Start Last Admin Trade Name Freq PRN Reason Stop Dose Admin Acetaminophen 325 mg 08/28/24 20:28 Acetaminophen 325 Mg Tablet PO 09/27/24 20:27 Q6H PRN PAIN SCALE 1-3 (mild Albuterol/Ipratropium 3 ml 08/28/24 20:24 09/08/24 20:57 Albuterol/Ipratropium (Duoneb) Rt Janessa 3 Ml Nebu INH 09/27/24 22:59 3 ml Q4HRRT PRN Administration Wheeze Folic Acid 1 mg 08/29/24 09:00 09/09/24 08:28 Folic Acid 1 Mg Tablet PO 09/28/24 08:59 1 mg QDAY JERSON Administration Sodium Chloride 1,000 mls @ 125 mls/hr 09/08/24 10:01 09/08/24 22:43 Ns IV 10/08/24 10:00 Not Given .Q8H JERSON Albumin Human 25 gm in 100 mls @ 100 mls/hr 09/08/24 14:00 09/09/24 06:45 Albuminar-25 Ivpb IV 09/10/24 13:59 Infused TID JERSON Infusion Lactulose 30 gm 09/08/24 14:00 09/09/24 05:25 Lactulose Syrup 20 Gm/30 Ml Udc PO 10/08/24 13:59 30 gm TID JERSON Administration Protocol Midodrine 10 mg 09/09/24 08:00 09/09/24 08:27 Midodrine 5 Mg Tablet PO 10/09/24 07:59 10 mg TID JERSON Administration Pantoprazole Sodium 40 mg 09/08/24 09:00 09/09/24 08:28 Pantoprazole 40 Mg Tablet PO 10/08/24 08:59 40 mg QDAY JERSON Administration Prednisone 40 mg 09/09/24 09:00 09/09/24 09:08 Prednisone 20 Mg Tablet PO 09/16/24 08:43 40 mg QDAY JERSON Administration Propranolol HCl 10 mg 09/03/24 21:00 09/09/24 08:28 Propranolol 10 Mg Tablet PO 10/03/24 20:59 10 mg BID JERSON Administration Rifaximin 550 mg 08/28/24 21:00 09/09/24 08:28 Rifaximin 550 Mg Tablet PO 09/10/24 20:59 550 mg BID JERSON Administration Sodium Chloride 5 ml 08/28/24 17:29 08/28/24 18:47 Sodium Chloride Rt Janessa 0.9% 3 Ml Nebu INH 09/27/24 17:28 3 ml PRN PRN Administration SOLN Thiamine HCl 100 mg 08/28/24 20:45 09/09/24 08:28 Thiamine 100 Mg Tablet PO 09/27/24 20:44 100 mg QDAY JERSON Administration Plan Mr. Stack is a 74-year-old male with past medical history of liver cirrhosis secondary to alcohol use disorder, esophageal varices, ?Asthma/COPD, GERD, anxiety and BPH who was BIBA to [facility] emergency department from home on 08/28/2024 with a chief complaint of altered mental status. Patient will be admitted for workup and management of hepatic encephalopathy and acute blood loss anemia. 1. Acute kidney injury prerenal versus renal 2. Proteinuria Baseline CR 0.5. CR 2.9 ---> 3.6 Etiology: AIN, medication side effect, dehydration, hepatorenal syndrome Urine creatinine 216, urine random protein 100, urine sodium <15, urine potassium 50, urine chloride <20. Renal ultrasound completed on 09/08/2024 findings include: No hydronephrosis, no significant cortical thinning. Plan: ? Continue Normal saline maintenance IV fluids at 125 cc/h ? Continue albumin 25 g IV 3 times daily from [09/08 - 09/10] as per nephrology recommendations ? Increased midodrine to 10 Mg p.o. 3 times daily ? Encourage p.o. fluid intake ? Renally dose medication ? Avoid nephrotoxic agents ? Analyst, Dr Medrano consulted and closely following the case. Appreciate recommendations 3. Altered mental status secondary to acute metabolic encephalopathy - resolving At baseline patient is conversational and oriented x 3. On admission patient was altered and ANO x 0. On exam patient's pupils reactive to light nonverbal and unresponsive to sternal rub. DDx: Hepatic encephalopathy, medication side effect, TIA CT brain was negative for hemorrhage, mass effect or midline shift Ammonia 57 Patient now oriented x 3. Patient had 3 bowel movements in 24 hours Plan: ? Aspiration precautions ? Head of bed elevation ? Neurochecks every 4 hourly ? Continue lactulose 30 g p.o. 3 times daily ? Continue rifaximin 550 Mg p.o. twice daily ? Continue thiamine p.o. 4. Likely aspiration pneumonia - resolved Patient presented with altered mental status On exam patient has decreased air entry at the bases Chest x-ray showed trace fluid in horizontal fissure right lung. Completed 7 days of Augmentin 1 tab p.o. twice daily from [08/30?09/06] 5. Hypokalemia - resolved 6. Hypophosphatemia - resolved K3.4 , Phos 1.9 ---> 3.9 7. Acute blood loss anemia secondary to GI bleed?resolving 8. Likely upper GI bleed secondary to esophageal varices?resolving 9. Decompensated alcoholic cirrhosis with coagulopathy and thrombocytopenia 10. Hyperbilirubinemia 11. Hepatitis C Patient was found unconscious in a pool of coffee-ground emesis On admission patient's Hb 7.6 and he received 2 units PRBC. Post H&H 7.4 T.Bili 3.8 ---> 15.2 Plt 103 Hepatitis C antibody positive [08/31/2024] EGD completed on 08/29/2024 findings include: Diffuse hypertensive portal gastropathy with mucosal oozing of blood and 1+ esophageal varices not large enough for band ligation.. Meld?NA score 38 points. 65-66% 90-day mortality. Child?Hernandez class C. 12 points. Life expectancy 1-3 years. Abdominal surgery mortality 82% Madrey score 42. Patient may benefit from steroids Completed 5 days of octreotide infusion from [08/29 - 09/02] Plan: ? HCV RNA quant ordered ? Continue cardiac diet. ? Started prednisone 40 Mg p.o. daily ? Continue Protonix 40 Mg p.o. daily ? GI, Dr. Hall consulted and closely following the case. Appreciate recommendations. 12. Asthma 13. COPD Home medication Trelegy inhaler pCO2 47 Plan: ? DuoNebs as needed 14. Low TSH 15. Low T4 TSH 0.39, T4 0.84 Likely normal based on patient age 14. Goals of care discussion - SNF [09/01/2024] spoke to next of kin, Maggy Romero over the phone at . Briefly updated her on patient's hospital course and asked her to come in today for a goals of care discussion. Ms. oRmero agreed for 3 PM and said she would call if any change of plans. At baseline she says that patient is independent and can carry out all his ADLs. He also has home health who visits him 6 days a week for a total of 21 hours. Patient's next of kin did not show up today. Will reach out again tomorrow. [09/02/2024] Spoke to next of kin, Maggy Romero over the phone at [phone]. Briefly updated her on patient's hospital course and asked her to come in today for a goals of care discussion. She said she might be able to come in tomorrow for an in person visit. Offered her the options of [facility] facility versus hospice. She needs more time to think about it. [09/03/2024] Spoke to next of kin, Maggy Romero and her son at bedside. They expressed their wishes for [facility]. All questions asked were answered and concerns addressed. [09/06/2024] bilingual social worker in contact with family members, patient to be discharged to SNF, pending authorization and voiding trial Health maintenance: Disposition: Pending SNF once CONNOR resolves. Diet: Cardiac Lines: pIVs GI Prophylaxis: Pantoprazole Thrombo Prophylaxis: SCDs Code status: FULL CODE Plan of care discussed with Attending Dr. Lynn and PGY2 Dr. Sandee Green MD PGY 1 Attending Provider Attestation/Addendum I attest that I was physically present for the evaluation, physical examination, lab and imaging review of the patient with the residents. I discussed the case with the residents and agree with the findings and plans of care as documented above. At bedside today, patient continues to be alert and awake, oriented x 3, able to answer questions and follow commands. Had oral intake of 1020 cc in last 24 hours and continues to have decreased urine output. Kidney function continued to worsen 44/3.6 today. We will continue with IV albumin challenge and IV hydration. Nephrology and gastroenterology following. Continues to be on lactulose, rifaximin, steroid and thiamine. Prognosis is guarded. Mike Lynn MD
[2024-09-09] MEDS: SODIUM CHLORIDE 0.9% 1000 ML 1,000 ML 125 ML IV (17:26)
--- NOTE | 2024-09-09 19:21 | ESPR_ITS ---
Documentation for date of: 09/09/24 Subjective Subjective Interval history: Complicated patient with deteriorating liver functions as well as kidney function BUN/creatinine 44 and 3.6 Total bilirubin 19.0 AST ALT 120 and 113 alk phos of 98 Pro time INR is 2.3 Case discussed with internal medicine team and started the patient on prednisone 40 mg p.o. daily Patient not a candidate for any evaluation for liver transplant at his age Exam Vital Signs Temp Pulse Resp BP Pulse Ox O2 Del Method O2 Flow Rate 97.4 F 74 19 107/66 96 Room Air 2 09/09/24 16:00 09/09/24 16:00 09/09/24 16:00 09/09/24 16:00 09/09/24 16:00 09/09/24 16:00 09/09/24 00:00 Objective Labs 09/09/24 04:53 09/09/24 04:53 Labs: Laboratory Results - last 24 hr 08/29/24 09/09/24 05:20 04:53 WBC 11.0 H RBC 2.78 L Hgb 9.0 L Hct 26.4 L MCV 95 MCH 32.4 MCHC 34.1 RDW Std Deviation 73.0 H Plt Count 109 L Neut % (Auto) 76 Lymph % (Auto) 9 L [place] % (Auto) 12 Eos % (Auto) 3 Baso % (Auto) 0 Neut # (Auto) 8.4 H Lymph # (Auto) 1.0 [place] # (Auto) 1.3 H Eos # (Auto) 0.3 Baso # (Auto) 0.0 Immature Gran # (Auto) 0.05 H Absolute Nucleated RBC 0.00 Immature Gran % 1 H Nucleated RBC % 0 PT 23.3 H INR 2.3 H APTT 65.9 H D Sodium 137 Potassium 3.4 Chloride 106 Carbon Dioxide 22.1 Anion Gap 9 BUN 44 H Creatinine 3.6 H D Estim Creat Clear Calc 18.0 L eGFR 17 L BUN/Creatinine Ratio 12 Glucose 90 Calculated Osmolality 285 Calcium 7.6 L Corrected Calcium 9.1 Phosphorus 4.3 Magnesium 2.5 Total Bilirubin 19.0 H* D Direct Bilirubin 12.0 H AST 113 H ALT 48 Alkaline Phosphatase 155 H D Total Protein 6.1 Albumin 2.1 L Globulin 4.0 H Albumin/Globulin Ratio 0.5 L Thiamine (Vit B1) [place] <6 L Misc Test Result See Sep Rpt Impressions Impression: # Acutely decompensated chronic liver disease # Thrombocytopenia and coagulopathy # Hepatorenal syndrome Start patient on p.o. prednisone Prognosis is very guarded and poor ABG Interpretation ABG results: 08/28/24 08/29/24 09/03/24 22:40 10:05 15:24 ABG pH 7.41 7.50 H ABG pCO2 29 L 33 ABG pO2 69 L 63 L ABG HCO3 18 L 25 ABG O2 Saturation 94 94 ABG Base Excess -6 L 2 VBG pH 7.41 VBG pCO2 47 VBG pO2 30 VBG Base Excess 4 H Assessment & Plan A&P Narrative # Acute upper GI bleed in the form of melena # Acute posthemorrhagic anemia # Acute hepatic encephalopathy # Chronic liver disease with thrombocytopenia abnormal liver function test and coagulopathy secondary to alcohol Plan Agree with the blood transfusion give patient 2 units of PRBC Octreotide infusion Lactulose and Xifaxan Consent will be obtained from the sister who makes that decision for fiberoptic esophagogastroduodenoscopy with possible therapeutic intervention under intravenous moderate sedation Prognosis guarded Thank you for the opportunity to participate in the care of this patient Time Spent With Patient Time: Total time spent is greater than 50% in coordination of care (as documented) at patient's floor/unit and/or counseling patient:
[2024-09-10] VITALS (15 sets, daily range): BP systolic 100–120; BP diastolic 51–81; PULSE 54–93; RESP 13–96; TEMP 36.1–36.9; O2SAT 90–97; BMI 24.5; BMI 14.0
[2024-09-10] MEDS: ALBUTEROL/IPRATROPIUM (Duoneb) RT SOL 3 ML NEBU INH (00:33)
[2024-09-10] MEDS: SODIUM CHLORIDE 0.9% 1000 ML 1,000 ML 125 ML IV ×3 (02:02→17:28)
[2024-09-10] MEDS: ALBUMIN HUMAN 25% IVPB 25 GM/100 ML BTL IV (05:01)
[2024-09-10] MEDS: MIDODRINE 5 MG TABLET 10 MG PO ×3 (05:02→21:42)
[2024-09-10 05:51] LABS: Basophils % (Auto) 0 % (0-2.5); Eosinophils % (Auto) 0 % (0-10); Hematocrit 25.1 % (41.0-53.0); Hemoglobin 8.2 g/dL (13.5-16.0); Immature Granulocytes % (Auto) 1 % (0-0); Immature Granulocytes Auto 0.07 Thou/mm3 (0.00-0.00); Lymphocytes % (Auto) 8 % (10-50); Mean Corpuscular HGB Conc 32.7 g/dl (31.0-37.0); Mean Corpuscular Volume 98 fL (80-100); Monocytes # (Auto) 1.4 Thou/mm3 (0.0-0.8); Monocytes % (Auto) 11 % (0-12); Neutrophils # (Auto) 9.8 Thou/mm3 (1.8-7.7); Neutrophils % (Auto) 80 % (37-80); Nucleated Red Blood Cell % 0 /100 WBC (0); Platelet Count 94 Thou/mm3 (140-440); RDW Standard Deviation 74.2 fL (35.1-43.9); Red Blood Count 2.56 Miln/mm3 (4.50-5.90); White Blood Count 12.3 Thou/mm3 (3.8-10.6)
[2024-09-10 06:21] LABS: Alanine Aminotransferase 42 U/L (10-49); Albumin, Serum 2.4 gm/dL (3.4-4.8); Albumin/Globulin Ratio 0.7 (1.2-2.2); Alkaline Phosphatase 133 U/L (46-116); Anion Gap 11 (7-16); Aspartate Amino Transferase 93 U/L (0-34); BUN/Creatinine Ratio 14 Ratio (12-20); Blood Urea Nitrogen 56 mg/dL (9-23); Calcium 7.8 mg/dL (8.3-10.6); Calcium (Corrected) 9.1 mg/dL (8.5-10.1); Carbon Dioxide 18.8 mMol/L (20.0-31.0); Chloride 107 mMol/L (98-107); Creatinine (Component) 3.9 mg/dL (0.6-1.3); Estimated Creatinine Clearance 16.6 mL/min (>60); Globulin 3.5 gm/dL (2.3-3.5); Glucose 133 mg/dL (74-106); Magnesium 2.6 mg/dL (1.6-2.6); Osmolality,Calculated 291 (275-295); Phosphorous 5.1 mg/dL (2.4-5.1); Potassium 3.4 mMol/L (3.4-5.1); Sodium 137 mMol/L (136-145); Total Protein 5.9 gm/dL (5.7-8.2); eGFR 15 See Note
[2024-09-10 07:04] LABS: Bilirubin,Total 20.9 mg/dL (0.3-1.2)
--- NOTE | 2024-09-10 07:14 | PD.NEPHPROG ---
Documentation for date of: 09/10/24 Subjective Subjective Interval history: Chart review done. Mr. Stack is a 74-year-old male with past medical history of liver cirrhosis secondary to alcohol use disorder, esophageal varices, ?Asthma/COPD, GERD, anxiety and BPH presented to [facility] on 08/28/2024 with a chief complaint of altered mental status. per EMS patient was found to be naked and altered. Noted to have dark blood all over the floor. During the hospital course patient had a GI bleed and was seen by Dr. Hall. Also noted to have metabolic encephalopathy-lactulose, rifaximin were initiated. For the last 24 hours his urine output has dropped significantly and renal consultation was requested. CT brain was negative. 09/08/2024 patient currently seen in telemetry.His current medications included folic acid, lactulose, Protonix, propranolol, rifaximin, thiamine.WBC 11.9, hemoglobin 9.5, platelets 131. Sodium 137, potassium 3.3, BUN 43, creatinine 2.9, calcium 9, phosphorus 3.9, total bilirubin 15.2, AST 132, ALT 53, albumin 1.7. Urine showed concentrated urine with blood and bilirubin. Urine sodium less than 15. Talk screen was negative. Hep panel showed AB and AB-. Hep C positive. Renal ultrasound this afternoon showed no hydronephrosis. No cortical thinning consistent with normal kidneys. Head CT on admission was negative. 09/09/2024 patient currently seen in telemetry. Today he seems to be more alert and awake. Last night hospitalist team called-patient complaining of abdominal pain and shortness of breath. Chest x-ray showed dilated bowel loops. Recommended KUB which showed ileus-NG tube was inserted overnight. Patient currently seems to be feeling little bit better. Denies any abdominal pain. Hemoglobin 9, platelets 109, WBC 11, sodium 137, potassium 3.4, BUN 44, creatinine 3.6, GFR 17, bilirubin significantly elevated to 19, AST 113, ALT 48, alk phos 155, albumin 2.1 urine sodium less than 15 urine output 225 mL/day Noted team started the patient on steroids. Patient has a decompensated liver cirrhosis. Hep C positive. Viral load pending. Dr. Hall on the case. Patient currently on albumin, midodrine, normal saline to rule out hepatorenal syndrome. Will continue the same for another 24 hours. If no improvement then HRS 1 diagnosis will be made 09/10/2024 patient currently seen in telemetry. He is having breakfast. Denies any chest pain, shortness of breath. More alert and awake. Made 500 mL urine last night. Blood sugar 109. Blood pressure 100/53, heart rate 69. WBC 12.3, hemoglobin 8.2, platelets 94. Sodium 137, potassium 3.4, bicarbonate 18.8, BUN 56, creatinine 3.9, glucose 133, calcium 9.1, phosphorus 5.1, magnesium 2.6, total bilirubin 20.9, AST 53, ALT 43, alk phos 133, albumin 2.4. He is currently on midodrine, normal saline at 125 mL/h, albumin 3 times daily, rifaximin. Review of Systems Review of Systems Narrative Review of Systems: Patient more alert and awake. Able to respond and able to move his extremities. Denies any chest pain, shortness of breath. Anxious to go home. Able to sit and out of bed to chair Exam Vital Signs Temp Pulse Resp BP Pulse Ox O2 Del Method O2 Flow Rate 36.1 C 66 16 116/51 L 90 L Room Air 1 09/10/24 04:00 09/10/24 05:02 09/10/24 04:00 09/10/24 05:02 09/10/24 04:00 09/10/24 04:00 09/10/24 00:00 Narrative Exam GENERAL APPEARANCE patient currently seen in telemetry Has NG tube to suction Scleral icterus, jaundice noted NECK: Neck supple, no JVD or bruit CARDIOVASCULAR: Heart regular, no murmurs LUNGS/CHEST: Chest clear to auscultation. No rales, rhonchi, wheezing ABDOMEN: Distended with decreased bowel sounds. EXTREMITIES: No edema, clubbing or cyanosis. SKIN: Jaundiced MUSCULOSKELETAL: In bed NEUROLOGICAL : More alert and awake Objective Labs 09/10/24 05:20 09/10/24 05:20 Labs: Laboratory Results - last 24 hr 08/29/24 09/09/24 09/10/24 05:20 04:53 05:20 WBC 12.3 H RBC 2.56 L Hgb 8.2 L Hct 25.1 L MCV 98 MCH 32.0 MCHC 32.7 RDW Std Deviation 74.2 H Plt Count 94 L Neut % (Auto) 80 Lymph % (Auto) 8 L [place] % (Auto) 11 Eos % (Auto) 0 Baso % (Auto) 0 Neut # (Auto) 9.8 H Lymph # (Auto) 1.0 [place] # (Auto) 1.4 H Eos # (Auto) 0.0 Baso # (Auto) 0.0 Immature Gran # (Auto) 0.07 H Absolute Nucleated RBC 0.00 Immature Gran % 1 H Nucleated RBC % 0 PT 23.3 H INR 2.3 H APTT 65.9 H D Sodium 137 Potassium 3.4 Chloride 107 Carbon Dioxide 18.8 L Anion Gap 11 BUN 56 H Creatinine 3.9 H Estim Creat Clear Calc 16.6 L eGFR 15 L BUN/Creatinine Ratio 14 Glucose 133 H Calculated Osmolality 291 Calcium 7.8 L Corrected Calcium 9.1 Phosphorus 5.1 Magnesium 2.6 Total Bilirubin 20.9 H* D Direct Bilirubin 12.0 H AST 93 H ALT 42 Alkaline Phosphatase 133 H D Total Protein 5.9 Albumin 2.4 L Globulin 3.5 Albumin/Globulin Ratio 0.7 L Misc Test Result See Sep Rpt ABG Interpretation ABG results: 08/28/24 08/29/24 09/03/24 22:40 10:05 15:24 ABG pH 7.41 7.50 H ABG pCO2 29 L 33 ABG pO2 69 L 63 L ABG HCO3 18 L 25 ABG O2 Saturation 94 94 ABG Base Excess -6 L 2 VBG pH 7.41 VBG pCO2 47 VBG pO2 30 VBG Base Excess 4 H Assessment & Plan Assessment and plan (1) Acute renal failure (ARF): Status: Acute (2) Acute upper gastrointestinal bleeding: Status: Acute (3) Cirrhosis of liver: Status: Acute (4) Hepatic encephalopathy: Status: Acute (5) Anemia: Status: Acute Additional Assessment & Plan Additional Plan: (1) Acute renal failure (ARF): Status: Acute Assessment and plan: Acute renal failure with worsening renal function and decreased urine output-rule out hepatorenal syndrome versus prerenal azotemia with fluctuations in blood pressure. Hold off on diuretics. Give fluids, albumin, midodrine today. If no improvement in renal function then the diagnosis will be made for HRS. If HRS type I prognosis remains guarded. No need for emergency dialysis. Patient started to make urine. (2) Acute upper gastrointestinal bleeding: Status: Acute Assessment and plan: Dr. Hall on the case. On PPI (3) Cirrhosis of liver: Status: Acute Assessment and plan: Patient seems to have decompensated liver cirrhosis with GI bleed, varices, hepatic encephalopathy, worsening renal function, thrombocytopenia, anemia. GI on the case. On lactulose, rifaximin patient has a prolonged hospital course for the last 11 days. NG tube was discontinued (4) Hepatic encephalopathy: Status: Acute Assessment and plan: On lactulose (5) Anemia: Status: Acute Assessment and plan: As needed transfusions Plan of care discussed with primary team Prognosis remains poor without liver transplant. Quality - progress note Quality Measures Quality Measures: VTE prophylaxis Reason for Continued Stay Reason for Continued Stay: further monitoring
[2024-09-10] MEDS: FOLIC ACID 1 MG TABLET PO (08:23)
[2024-09-10] MEDS: rifaximin 550 MG TABLET PO (08:23)
[2024-09-10] MEDS: PROPRANOLOL 10 MG TABLET PO ×2 (08:23→21:43)
[2024-09-10] MEDS: THIAMINE 100 MG TABLET PO (08:23)
[2024-09-10] MEDS: predniSONE 20 MG TABLET 40 MG PO (08:23)
[2024-09-10] MEDS: PANTOPRAZOLE 40 MG TABLET PO (08:23)
--- NOTE | 2024-09-10 10:02 | PD.IMPROG ---
Documentation for date of: 09/10/24 Subjective Subjective Interval history: Patient evaluated More alert BUN/creatinine 56 and 3.9 Hemoglobin hematocrit 8.2 and 25.1 Patient on midodrine albumin daily and IV fluids Making some urine Exam Vital Signs Temp Pulse Resp BP Pulse Ox O2 Del Method O2 Flow Rate 97.8 F 87 19 117/64 94 L Room Air 1 09/10/24 08:00 09/10/24 08:23 09/10/24 08:00 09/10/24 08:23 09/10/24 08:00 09/10/24 08:00 09/10/24 00:00 Objective Labs 09/10/24 05:20 09/10/24 05:20 Labs: Laboratory Results - last 24 hr 09/10/24 05:20 WBC 12.3 H RBC 2.56 L Hgb 8.2 L Hct 25.1 L MCV 98 MCH 32.0 MCHC 32.7 RDW Std Deviation 74.2 H Plt Count 94 L Neut % (Auto) 80 Lymph % (Auto) 8 L [place] % (Auto) 11 Eos % (Auto) 0 Baso % (Auto) 0 Neut # (Auto) 9.8 H Lymph # (Auto) 1.0 [place] # (Auto) 1.4 H Eos # (Auto) 0.0 Baso # (Auto) 0.0 Immature Gran # (Auto) 0.07 H Absolute Nucleated RBC 0.00 Immature Gran % 1 H Nucleated RBC % 0 Sodium 137 Potassium 3.4 Chloride 107 Carbon Dioxide 18.8 L Anion Gap 11 BUN 56 H Creatinine 3.9 H Estim Creat Clear Calc 16.6 L eGFR 15 L BUN/Creatinine Ratio 14 Glucose 133 H Calculated Osmolality 291 Calcium 7.8 L Corrected Calcium 9.1 Phosphorus 5.1 Magnesium 2.6 Total Bilirubin 20.9 H* D AST 93 H ALT 42 Alkaline Phosphatase 133 H D Total Protein 5.9 Albumin 2.4 L Globulin 3.5 Albumin/Globulin Ratio 0.7 L Impressions Impression: # Acute hepatic encephalopathy resolving on rifaximin # Acute renal failure most likely hepatorenal syndrome beginning to make urine hopefully the renal function will improve # Upper GI bleed secondary to mucosal oozing of blood in the setting of advanced portal hypertension Continue current management ABG Interpretation ABG results: 08/28/24 08/29/24 09/03/24 22:40 10:05 15:24 ABG pH 7.41 7.50 H ABG pCO2 29 L 33 ABG pO2 69 L 63 L ABG HCO3 18 L 25 ABG O2 Saturation 94 94 ABG Base Excess -6 L 2 VBG pH 7.41 VBG pCO2 47 VBG pO2 30 VBG Base Excess 4 H Assessment & Plan A&P Narrative # Acute upper GI bleed in the form of melena # Acute posthemorrhagic anemia # Acute hepatic encephalopathy # Chronic liver disease with thrombocytopenia abnormal liver function test and coagulopathy secondary to alcohol Plan Agree with the blood transfusion give patient 2 units of PRBC Octreotide infusion Lactulose and Xifaxan Consent will be obtained from the sister who makes that decision for fiberoptic esophagogastroduodenoscopy with possible therapeutic intervention under intravenous moderate sedation Prognosis guarded Thank you for the opportunity to participate in the care of this patient Time Spent With Patient Time: Total time spent is greater than 50% in coordination of care (as documented) at patient's floor/unit and/or counseling patient:
[2024-09-10] MEDS: LACTULOSE SYRUP 20 GM/30 ML UDC 30 GM PO ×2 (14:26→21:43)
--- NOTE | 2024-09-10 15:30 | PD.RESPRO ---
Documentation for date of: 09/10/24 Subjective Subjective Interval history: No significant events overnight. Patient had 4 bowel movements and 500 cc urine output. Morning labs significant for uptrending of BUN and creatinine while T. bili increased to 20.9. Nephrology Dr. Medrano recommended continuing albumin for today. We spoke to patient's sister regarding possible hemodialysis in the future if needed. Family member stated they would like everything to be done that would be in benefit of patient. We will continue current regimen. Exam Vital Signs Temp Pulse Resp BP Pulse Ox O2 Del Method O2 Flow Rate 97.6 F 93 18 100/53 L 93 L Room Air 1 09/10/24 11:56 09/10/24 14:25 09/10/24 11:56 09/10/24 14:25 09/10/24 11:56 09/10/24 11:56 09/10/24 00:00 Narrative Exam Constitutional Alert, oriented x 3 in no acute distress. Scleral icterus. HEENT Vision grossly intact. Patent nares. Trachea midline Respiratory Chest normal on inspection and clear auscultation bilaterally Cardiovascular S1 and S2 audible, RRR. No murmurs carotid bruit. No gross JVD. Abdominal Soft, mildly distended and non tender to palpation in all quadrants. BS + Genitourinary No bladder tenderness, no flank pain. Normal to palpation Musculoskeletal Extremities tone within normal limits. No LE edema. Neurological CN II - XII grossly intact. Extremity motor and sensation grossly intact. Skin Warm, dry and intact. No apparent lesions. Psychiatric Patient has good affect, is cooperative Objective Labs 09/11/24 04:50 09/11/24 04:50 Labs: Laboratory Results - last 24 hr 09/10/24 05:20 WBC 12.3 H RBC 2.56 L Hgb 8.2 L Hct 25.1 L MCV 98 MCH 32.0 MCHC 32.7 RDW Std Deviation 74.2 H Plt Count 94 L Neut % (Auto) 80 Lymph % (Auto) 8 L [place] % (Auto) 11 Eos % (Auto) 0 Baso % (Auto) 0 Neut # (Auto) 9.8 H Lymph # (Auto) 1.0 [place] # (Auto) 1.4 H Eos # (Auto) 0.0 Baso # (Auto) 0.0 Immature Gran # (Auto) 0.07 H Absolute Nucleated RBC 0.00 Immature Gran % 1 H Nucleated RBC % 0 Sodium 137 Potassium 3.4 Chloride 107 Carbon Dioxide 18.8 L Anion Gap 11 BUN 56 H Creatinine 3.9 H Estim Creat Clear Calc 16.6 L eGFR 15 L BUN/Creatinine Ratio 14 Glucose 133 H Calculated Osmolality 291 Calcium 7.8 L Corrected Calcium 9.1 Phosphorus 5.1 Magnesium 2.6 Total Bilirubin 20.9 H* D AST 93 H ALT 42 Alkaline Phosphatase 133 H D Total Protein 5.9 Albumin 2.4 L Globulin 3.5 Albumin/Globulin Ratio 0.7 L ABG Interpretation ABG results: 08/28/24 08/29/24 09/03/24 22:40 10:05 15:24 ABG pH 7.41 7.50 H ABG pCO2 29 L 33 ABG pO2 69 L 63 L ABG HCO3 18 L 25 ABG O2 Saturation 94 94 ABG Base Excess -6 L 2 VBG pH 7.41 VBG pCO2 47 VBG pO2 30 VBG Base Excess 4 H Quality Measures Quality Measures none Advance care planning discussed with:: other Assessment & Plan Assessment Current Active Medications: Generic Name Dose Route Start Last Admin Trade Name Freq PRN Reason Stop Dose Admin Acetaminophen 325 mg 08/28/24 20:28 Acetaminophen 325 Mg Tablet PO 09/27/24 20:27 Q6H PRN PAIN SCALE 1-3 (mild Albuterol/Ipratropium 3 ml 08/28/24 20:24 09/10/24 00:33 Albuterol/Ipratropium (Duoneb) Rt Janessa 3 Ml Nebu INH 09/27/24 22:59 3 ml Q4HRRT PRN Administration Wheeze Folic Acid 1 mg 08/29/24 09:00 09/10/24 08:23 Folic Acid 1 Mg Tablet PO 09/28/24 08:59 1 mg QDAY JERSON Administration Sodium Chloride 1,000 mls @ 125 mls/hr 09/08/24 10:01 09/10/24 09:42 Ns IV 10/08/24 10:00 125 mls/hr .Q8H JERSON Administration Lactulose 30 gm 09/08/24 14:00 09/10/24 14:26 Lactulose Syrup 20 Gm/30 Ml Udc PO 10/08/24 13:59 30 gm TID JERSON Administration Protocol Midodrine 10 mg 09/09/24 08:00 09/10/24 14:25 Midodrine 5 Mg Tablet PO 10/09/24 07:59 10 mg TID JERSON Administration Pantoprazole Sodium 40 mg 09/08/24 09:00 09/10/24 08:23 Pantoprazole 40 Mg Tablet PO 10/08/24 08:59 40 mg QDAY JERSON Administration Prednisone 40 mg 09/09/24 09:00 09/10/24 08:23 Prednisone 20 Mg Tablet PO 09/16/24 08:43 40 mg QDAY JERSON Administration Propranolol HCl 10 mg 09/03/24 21:00 09/10/24 08:23 Propranolol 10 Mg Tablet PO 10/03/24 20:59 10 mg BID JERSON Administration Rifaximin 550 mg 08/28/24 21:00 09/10/24 08:23 Rifaximin 550 Mg Tablet PO 09/10/24 20:59 550 mg BID JERSON Administration Sodium Chloride 5 ml 08/28/24 17:29 08/28/24 18:47 Sodium Chloride Rt Janessa 0.9% 3 Ml Nebu INH 09/27/24 17:28 3 ml PRN PRN Administration SOLN Thiamine HCl 100 mg 08/28/24 20:45 09/10/24 08:23 Thiamine 100 Mg Tablet PO 09/27/24 20:44 100 mg QDAY JERSON Administration Plan Mr. Stack is a 74-year-old male with past medical history of liver cirrhosis secondary to alcohol use disorder, esophageal varices, ?Asthma/COPD, GERD, anxiety and BPH who was BIBA to [facility] emergency department from home on 08/28/2024 with a chief complaint of altered mental status. Patient will be admitted for workup and management of hepatic encephalopathy and acute blood loss anemia. 1. Acute kidney injury prerenal versus renal 2. Proteinuria Baseline CR 0.5. CR 2.9 ---> 3.6 Etiology: AIN, medication side effect, dehydration, hepatorenal syndrome Urine creatinine 216, urine random protein 100, urine sodium <15, urine potassium 50, urine chloride <20. Renal ultrasound completed on 09/08/2024 findings include: No hydronephrosis, no significant cortical thinning. Plan: ? Continue Normal saline maintenance IV fluids at 125 cc/h ? Continue albumin 25 g IV 3 times daily from [09/08 - 09/10] as per nephrology recommendations ? Continue midodrine to 10 Mg p.o. 3 times daily ? Encourage p.o. fluid intake ? Renally dose medication ? Avoid nephrotoxic agents ? Care Transitions Manager, Dr Medrano onboard and closely following the case. Appreciate recommendations 3. Altered mental status secondary to acute metabolic encephalopathy - resolving At baseline patient is conversational and oriented x 3. On admission patient was altered and ANO x 0. On exam patient's pupils reactive to light nonverbal and unresponsive to sternal rub. DDx: Hepatic encephalopathy, medication side effect, TIA CT brain was negative for hemorrhage, mass effect or midline shift Ammonia 57 Patient now oriented x 3. Patient had 3 bowel movements in 24 hours Plan: ? Aspiration precautions ? Head of bed elevation ? Neurochecks every 4 hourly ? Continue lactulose 30 g p.o. 3 times daily ? Continue rifaximin 550 Mg p.o. twice daily ? Continue thiamine p.o. 4. Likely aspiration pneumonia - resolved Patient presented with altered mental status On exam patient has decreased air entry at the bases Chest x-ray showed trace fluid in horizontal fissure right lung. Completed 7 days of Augmentin 1 tab p.o. twice daily from [08/30?09/06] 5. Hypokalemia - resolved 6. Hypophosphatemia - resolved K3.4 , Phos 1.9 ---> 3.9 7. Acute blood loss anemia secondary to GI bleed?resolving 8. Likely upper GI bleed secondary to esophageal varices?resolving 9. Decompensated alcoholic cirrhosis with coagulopathy and thrombocytopenia 10. Hyperbilirubinemia 11. Hepatitis C Patient was found unconscious in a pool of coffee-ground emesis On admission patient's Hb 7.6 and he received 2 units PRBC. Post H&H 7.4 T.Bili 3.8 ---> 15.2 Plt 103 Hepatitis C antibody positive [08/31/2024] EGD completed on 08/29/2024 findings include: Diffuse hypertensive portal gastropathy with mucosal oozing of blood and 1+ esophageal varices not large enough for band ligation.. Meld?NA score 38 points. 65-66% 90-day mortality. Child?Hernandez class C. 12 points. Life expectancy 1-3 years. Abdominal surgery mortality 82% Madrey score 42. Patient may benefit from steroids Completed 5 days of octreotide infusion from [08/29 - 09/02] Plan: ? HCV RNA quant results pending ? Continue cardiac diet. ? Continue prednisone 40 Mg p.o. daily ? Continue Protonix 40 Mg p.o. daily ? GI, Dr. Hall onboard and closely following the case. Appreciate recommendations. 12. Asthma 13. COPD Home medication Trelegy inhaler pCO2 47 Plan: ? DuoNebs as needed 14. Low TSH 15. Low T4 TSH 0.39, T4 0.84 Likely normal based on patient age 14. Goals of care discussion - SNF [09/01/2024] spoke to next of kin, Maggy Romero over the phone at . Briefly updated her on patient's hospital course and asked her to come in today for a goals of care discussion. Ms. Romero agreed for 3 PM and said she would call if any change of plans. At baseline she says that patient is independent and can carry out all his ADLs. He also has home health who visits him 6 days a week for a total of 21 hours. Patient's next of kin did not show up today. Will reach out again tomorrow. [09/02/2024] Spoke to next of kin, Maggy Romero over the phone at . Briefly updated her on patient's hospital course and asked her to come in today for a goals of care discussion. She said she might be able to come in tomorrow for an in person visit. Offered her the options of [facility] facility versus hospice. She needs more time to think about it. [09/03/2024] Spoke to next of kin, Maggy Romero and her son at bedside. They expressed their wishes for chcf. All questions asked were answered and concerns addressed. [09/06/2024] geriatric social worker in contact with family members, patient to be discharged to SNF, pending authorization and voiding trial (09/10/2024) Spoke with Maggy Romero on the phone, sister OK with hemodialysis if needed. Health maintenance: Disposition: Pending SNF once CONNOR resolves. Diet: Cardiac Lines: pIVs GI Prophylaxis: Pantoprazole Thrombo Prophylaxis: SCDs Code status: FULL CODE This patient care was discussed with my attending Dr. Marylin Ignacio MD PGY-2 Disclaimer: Minor errors in auto body straightener may be present since this note was dictated by speech recognition software. Attending Provider Attestation/Addendum I, Earline Coulter DO, attest that I was physically present for the vogel portions of the service and evaluated the patient with the resident and I reviewed and discussed the case with the resident and agree with the resident's findings and plans of care as documented above Patient seen and evaluated this AM. Patient is somnolent, but A&Ox3. He states that he is tired. Patient is jaundiced, in no acute distress. Patient has no active complaints. Family updated by PGY2 regarding worsening renal function. Patient's sister has expressed that if his renal function were to worsen, they would like to pursue dialysis. Will continue to monitor renal function at this time and continue with IV fluids. Bilirubin uptrending. Mental status continues to improve per staff.
--- NOTE | 2024-09-10 15:33 | PC.SS ---
Follow up note: SS has spoken to Lauren at [facility] they have insurance authorization for pt as skilled rehab. Physicians will speak to family about CONNOR becoming worse.
--- NOTE | 2024-09-10 16:24 | PC.PT ---
Patient is clear to transfer to the chair at bedside with 1 staff assist. RN made aware.
[2024-09-10] MEDS: DiphenhydrAMINE ELIX 25 MG/10 ML UDC 50 MG PO (19:43)
[2024-09-11] VITALS (16 sets, daily range): BP systolic 94–119; BP diastolic 54–72; PULSE 56–107; RESP 14–96; TEMP 36.4–36.8; O2SAT 90–96
[2024-09-11] MEDS: SODIUM CHLORIDE 0.9% 1000 ML 1,000 ML 125 ML IV ×2 (01:31→09:20)
[2024-09-11 05:35] LABS: Basophils % (Auto) 0 % (0-2.5); Eosinophils % (Auto) 0 % (0-10); Hemoglobin 9.2 g/dL (13.5-16.0); Immature Granulocytes % (Auto) 1 % (0-0); Immature Granulocytes Auto 0.08 Thou/mm3 (0.00-0.00); Lymphocytes % (Auto) 7 % (10-50); Mean Corpuscular HGB Conc 34.1 g/dl (31.0-37.0); Mean Corpuscular Hemoglobin 32.3 pg (25.0-35.0); Mean Corpuscular Volume 95 fL (80-100); Monocytes # (Auto) 1.3 Thou/mm3 (0.0-0.8); Monocytes % (Auto) 9 % (0-12); Neutrophils # (Auto) 12.3 Thou/mm3 (1.8-7.7); Neutrophils % (Auto) 84 % (37-80); Nucleated Red Blood Cell % 0 /100 WBC (0); Platelet Count 87 Thou/mm3 (140-440); RDW Standard Deviation 70.7 fL (35.1-43.9); Red Blood Count 2.85 Miln/mm3 (4.50-5.90); White Blood Count 14.7 Thou/mm3 (3.8-10.6)
[2024-09-11] MEDS: MIDODRINE 5 MG TABLET 10 MG PO ×3 (05:35→21:13)
[2024-09-11] MEDS: LACTULOSE SYRUP 20 GM/30 ML UDC 30 GM PO (05:36)
[2024-09-11 06:54] LABS: Alanine Aminotransferase 47 U/L (10-49); Albumin, Serum 2.5 gm/dL (3.4-4.8); Albumin/Globulin Ratio 0.7 (1.2-2.2); Alkaline Phosphatase 146 U/L (46-116); Anion Gap 13 (7-16); Aspartate Amino Transferase 96 U/L (0-34); BUN/Creatinine Ratio 16 Ratio (12-20); Blood Urea Nitrogen 57 mg/dL (9-23); Calcium 7.7 mg/dL (8.3-10.6); Calcium (Corrected) 8.9 mg/dL (8.5-10.1); Carbon Dioxide 18.5 mMol/L (20.0-31.0); Chloride 107 mMol/L (98-107); Creatinine (Component) 3.6 mg/dL (0.6-1.3); Globulin 3.6 gm/dL (2.3-3.5); Glucose 127 mg/dL (74-106); Magnesium 2.4 mg/dL (1.6-2.6); Osmolality,Calculated 293 (275-295); Phosphorous 5.7 mg/dL (2.4-5.1); Potassium 3.6 mMol/L (3.4-5.1); Sodium 138 mMol/L (136-145); Total Protein 6.1 gm/dL (5.7-8.2); eGFR 17 See Note
[2024-09-11 07:11] LABS: Bilirubin,Total 22.5 mg/dL (0.3-1.2)
[2024-09-11] MEDS: THIAMINE 100 MG TABLET PO (08:05)
[2024-09-11] MEDS: PANTOPRAZOLE 40 MG TABLET PO (08:05)
[2024-09-11] MEDS: PROPRANOLOL 10 MG TABLET PO ×2 (08:05→21:13)
[2024-09-11] MEDS: predniSONE 20 MG TABLET 40 MG PO (08:05)
[2024-09-11] MEDS: FOLIC ACID 1 MG TABLET PO (08:07)
[2024-09-11] MEDS: SEVELAMER CARBONATE 800 MG TABLET PO (08:09)
--- NOTE | 2024-09-11 09:39 | XR_ITS ---
Examination: Abdomen sonogram, complete Date and time of exam: September 11, 2024 1221 hours INDICATIONS: Right upper abdominal pain beginning today. Technique: Multiple real-time grayscale transabdominal sonographic images of the abdomen have been obtained. Findings: Gallbladder sludge Gallbladder wall 0.5 cm however the patient is free fluid in the upper abdomen Common bile left 0.5 cm no stones Pancreatic head 3.7 cm Liver 10.3 cm irregular contour no focal liver lesions Portal vein obscured by bowel gas IVC patent Right kidney 13.0 cm renal cortex 2.0 cm Left kidney 12.0 cm renal cortex 1.9 cm Spleen 12.5 cm IMPRESSION: Gallbladder sludge Gallbladder wall is thickened 0.5 cm, clinical correlation advised, consider HIDA scan follow-up Cirrhosis Mild ascites
--- NOTE | 2024-09-11 11:01 | ESPR_ITS ---
<Statement entered by Checo Ignacio MD - 09/12/24 07:36> I discussed with and supervised the advisory intern physician involved in the care of this patient. Patient assessment and plan was discussed with entire medicine team, including my attending. I agree with the assessment and plan as documented by advisory intern doctor. Patient care was discussed with my attending physician Dr. Marylin Ignacio, PGY-2 Documentation for date of: 09/11/24 Subjective Subjective Interval history: Patient was seen and examined at bedside this AM. No acute exents overnight. Patient tolerating minimal diet, adequate urine output and mentation is at baseline. Patient denies any abdominal pain, nausea, vomiting and diarrhea. Patient had 3 bowel movements in the past 24 hours T. bili increased to 22.5 from 20.9 Phosphorus 5.7. Sevelamer 800 Mg p.o. x 1 Creatinine decreased to 3.6 from 3.9. Urine output 775 cc in 24 hours. On exam patient appears fluid overloaded, DC'd IV fluids. Abdominal ultrasound ordered to assess for ascites. Discussed with nephrology, Dr Medrano regarding possible hemodialysis. Recommended to hold off on hemodialysis for now. Day 3 prednisone 40 Mg p.o. daily for alcoholic hepatitis HCV RNA PCR quant pending Possible transfer for hepatology service at tertiary center. Discussed the current management and prognosis with next of kin, Maggy. Discussed worsening of liver function, kidney injury and high likelihood of deterioration and possible . 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 Also told her that we will try to obtain a hepatology consult. All questions and concerns were addressed and understanding was expressed. Exam Vital Signs Temp Pulse Resp BP Pulse Ox O2 Del Method O2 Flow Rate 98.3 F 66 19 116/67 92 L Room Air 1 09/11/24 08:00 09/11/24 08:05 09/11/24 08:00 09/11/24 08:05 09/11/24 08:00 09/11/24 08:00 09/11/24 03:49 Narrative Exam Constitutional Alert, oriented x 3 in no acute distress. Scleral icterus. HEENT Vision grossly intact. Patent nares. Trachea midline Respiratory Chest normal on inspection and crackles at right base Cardiovascular S1 and S2 audible, RRR. No murmurs carotid bruit. No gross JVD. Abdominal Soft, distended, mass palpated in extending from right upper quadrant to right lower quadrant most consistent with hepatomegaly, nontender to palpation in all quadrants. Bowel sounds present Genitourinary No bladder tenderness, no flank pain. Normal to palpation Musculoskeletal Extremities tone within normal limits. 2+ pitting edema at hips bilaterally Neurological CN II - XII grossly intact. Extremity motor and sensation grossly intact. Skin Warm, dry and intact. No apparent lesions. Psychiatric Patient has good affect, is cooperative Objective Labs 09/12/24 04:59 09/12/24 04:59 Labs: Laboratory Results - last 24 hr 09/11/24 04:50 WBC 14.7 H RBC 2.85 L Hgb 9.2 L Hct 27.0 L MCV 95 MCH 32.3 MCHC 34.1 RDW Std Deviation 70.7 H Plt Count 87 L Neut % (Auto) 84 H Lymph % (Auto) 7 L [place] % (Auto) 9 Eos % (Auto) 0 Baso % (Auto) 0 Neut # (Auto) 12.3 H Lymph # (Auto) 1.0 [place] # (Auto) 1.3 H Eos # (Auto) 0.0 Baso # (Auto) 0.0 Immature Gran # (Auto) 0.08 H Absolute Nucleated RBC 0.00 Immature Gran % 1 H Nucleated RBC % 0 Sodium 138 Potassium 3.6 Chloride 107 Carbon Dioxide 18.5 L Anion Gap 13 BUN 57 H Creatinine 3.6 H Estim Creat Clear Calc 18.0 L eGFR 17 L BUN/Creatinine Ratio 16 Glucose 127 H Calculated Osmolality 293 Calcium 7.7 L Corrected Calcium 8.9 Phosphorus 5.7 H Magnesium 2.4 Total Bilirubin 22.5 H* D AST 96 H ALT 47 Alkaline Phosphatase 146 H Total Protein 6.1 Albumin 2.5 L Globulin 3.6 H Albumin/Globulin Ratio 0.7 L ABG Interpretation ABG results: 08/28/24 08/29/24 09/03/24 22:40 10:05 15:24 ABG pH 7.41 7.50 H ABG pCO2 29 L 33 ABG pO2 69 L 63 L ABG HCO3 18 L 25 ABG O2 Saturation 94 94 ABG Base Excess -6 L 2 VBG pH 7.41 VBG pCO2 47 VBG pO2 30 VBG Base Excess 4 H Quality Measures Quality Measures none Advance care planning discussed with:: sibling Assessment & Plan Assessment Current Active Medications: Generic Name Dose Route Start Last Admin Trade Name Freq PRN Reason Stop Dose Admin Acetaminophen 325 mg 08/28/24 20:28 Acetaminophen 325 Mg Tablet PO 09/27/24 20:27 Q6H PRN PAIN SCALE 1-3 (mild Albuterol/Ipratropium 3 ml 08/28/24 20:24 09/10/24 00:33 Albuterol/Ipratropium (Duoneb) Rt Janessa 3 Ml Nebu INH 09/27/24 22:59 3 ml Q4HRRT PRN Administration Wheeze Folic Acid 1 mg 08/29/24 09:00 09/11/24 08:07 Folic Acid 1 Mg Tablet PO 09/28/24 08:59 1 mg QDAY JERSON Administration Lactulose 30 gm 09/08/24 14:00 09/11/24 05:36 Lactulose Syrup 20 Gm/30 Ml Udc PO 10/08/24 13:59 30 gm TID JERSON Administration Protocol Midodrine 10 mg 09/09/24 08:00 09/11/24 05:35 Midodrine 5 Mg Tablet PO 10/09/24 07:59 10 mg TID JERSON Administration Pantoprazole Sodium 40 mg 09/08/24 09:00 09/11/24 08:05 Pantoprazole 40 Mg Tablet PO 10/08/24 08:59 40 mg QDAY JERSON Administration Prednisone 40 mg 09/09/24 09:00 09/11/24 08:05 Prednisone 20 Mg Tablet PO 09/16/24 08:43 40 mg QDAY JERSON Administration Propranolol HCl 10 mg 09/03/24 21:00 09/11/24 08:05 Propranolol 10 Mg Tablet PO 10/03/24 20:59 10 mg BID JERSON Administration Sodium Chloride 5 ml 08/28/24 17:29 08/28/24 18:47 Sodium Chloride Rt Janessa 0.9% 3 Ml Nebu INH 09/27/24 17:28 3 ml PRN PRN Administration SOLN Thiamine HCl 100 mg 08/28/24 20:45 09/11/24 08:05 Thiamine 100 Mg Tablet PO 09/27/24 20:44 100 mg QDAY JERSON Administration Plan Mr. Stack is a 74-year-old male with past medical history of liver cirrhosis secondary to alcohol use disorder, esophageal varices, ?Asthma/COPD, GERD, anxiety and BPH who was BIBA to [facility] emergency department from home on 08/28/2024 with a chief complaint of altered mental status. Patient will be admitted for workup and management of hepatic encephalopathy and acute blood loss anemia. 1. Acute on chronic liver failure 2. Decompensated alcoholic cirrhosis with coagulopathy and thrombocytopenia 3. Hyperbilirubinemia 4. Hepatitis C T.Bili 20.9 ---> 22.5 Plt 87 Hepatitis C antibody positive [08/31/2024] EGD completed on 08/29/2024 findings include: Diffuse hypertensive portal gastropathy with mucosal oozing of blood and 1+ esophageal varices not large enough for band ligation.. Meld?NA score 38 points. 65-66% 90-day mortality. Child?Hernandez class C. 12 points. Life expectancy 1-3 years. Abdominal surgery mortality 82% Madrey score 42. Patient may benefit from steroids Completed 5 days of octreotide infusion from [08/29 - 09/02] Day 3 prednisone 40 Mg p.o. daily for alcoholic hepatitis HCV RNA PCR quant pending Possible transfer for hepatology service at tertiary center. Patient had worsening of liver function over his hospitalization with new onset CONNOR, possible hepatorenal syndrome. Qualifying for acute on chronic liver failure. Plan: ? HCV RNA quant results pending ? Continue cardiac diet. ? Continue prednisone 40 Mg p.o. daily ? Continue Protonix 40 Mg p.o. daily - Transfer initiated to tertiary center with can top setter. ? GI, Dr. Hall onboard and closely following the case. Appreciate recommendations. 5. Acute kidney injury prerenal versus renal 6. Anasarca 7. Proteinuria Baseline CR 0.5. CR 2.9 ---> 3.6 Etiology: AIN, medication side effect, dehydration, hepatorenal syndrome Urine creatinine 216, urine random protein 100, urine sodium <15, urine potassium 50, urine chloride <20. Renal ultrasound completed on 09/08/2024 findings include: No hydronephrosis, no significant cortical thinning. Completed 2 days albumin 25 g IV 3 times daily from [09/08 - 09/10] as per nephrology recommendations Creatinine decreased to 3.6 from 3.9. Urine output 775 cc in 24 hours. On exam patient appears fluid overloaded, DC'd IV fluids. Abdominal ultrasound ordered to assess for ascites. Plan: ? Abdominal ultrasound ordered to assess for ascites ? Discontinued normal saline maintenance IV fluids at 125 cc/h ? Continue midodrine to 10 Mg p.o. 3 times daily ? Lasix 40 Mg IV x 1 ? Renally dose medication ? Avoid nephrotoxic agents ? Crm Specialist, Dr Medrano onboard and closely following the case. Appreciate recommendations 8. Altered mental status secondary to acute metabolic encephalopathy - resolving At baseline patient is conversational and oriented x 3. On admission patient was altered and ANO x 0. On exam patient's pupils reactive to light nonverbal and unresponsive to sternal rub. DDx: Hepatic encephalopathy, medication side effect, TIA CT brain was negative for hemorrhage, mass effect or midline shift Ammonia 57 Patient now oriented x 3. Patient had 3 + bowel movements in 24 hours. Will decrease lactulose dose to 25 Mg p.o. 3 times daily Plan: ? Aspiration precautions ? Head of bed elevation ? Neurochecks every 4 hourly ? Decreased lactulose to 25G p.o. 3 times daily from 30G p.o. 3 times daily ? Continue rifaximin 550 Mg p.o. twice daily ? Continue thiamine p.o. 9. Likely aspiration pneumonia - resolved Patient presented with altered mental status On exam patient has decreased air entry at the bases Chest x-ray showed trace fluid in horizontal fissure right lung. Completed 7 days of Augmentin 1 tab p.o. twice daily from [08/30?09/06] 10. Hypokalemia - resolved 11. Hyperphosphatemia Phos 5.7 Plan: - Sevelamer 800 Mg p.o. x 1 ? If phosphorus continues to be elevated will consider scheduling sevelamer 12. Acute blood loss anemia secondary to GI bleed?resolved 13. Likely upper GI bleed secondary to esophageal varices?resolving Patient was found unconscious in a pool of coffee-ground emesis On admission patient's Hb 7.6 and he received 2 units PRBC. Post H&H 7.4 Currently Hb 9.2, Hct 27 14. Asthma 15. COPD Home medication Trelegy inhaler pCO2 47 Plan: ? DuoNebs as needed 16. Low TSH 17. Low T4 TSH 0.39, T4 0.84 Likely normal based on patient age 16. Goals of care discussion - SNF [09/01/2024] spoke to next of kin, Maggy Romero over the phone at [phone]. Briefly updated her on patient's hospital course and asked her to come in today for a goals of care discussion. Ms. Romero agreed for 3 PM and said she would call if any change of plans. At baseline she says that patient is independent and can carry out all his ADLs. He also has home health who visits him 6 days a week for a total of 21 hours. Patient's next of kin did not show up today. Will reach out again tomorrow. [09/02/2024] Spoke to next of kin, Maggy Romero over the phone at . Briefly updated her on patient's hospital course and asked her to come in today for a goals of care discussion. She said she might be able to come in tomorrow for an in person visit. Offered her the options of [facility] facility versus hospice. She needs more time to think about it. [09/03/2024] Spoke to next of kin, Maggy Romero and her son at bedside. They expressed their wishes for [facility]. All questions asked were answered and concerns addressed. [09/06/2024] transition social worker in contact with family members, patient to be discharged to SNF, pending authorization and voiding trial (09/10/2024) Spoke with Maggy Romero on the phone, sister OK with hemodialysis if needed. [09/11/2024] Discussed the current management and prognosis with next of kin, Maggy. Discussed worsening of liver function, kidney injury and high likelihood of deterioration and possible . 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 Also told her that we will try to obtain a hepatology consult. All questions and concerns were addressed and understanding was expressed. Health maintenance: Disposition: Possible transfer to tertiary center for evaluation by can top setter. Diet: Cardiac Lines: pIVs GI Prophylaxis: Pantoprazole Thrombo Prophylaxis: SCDs Code status: FULL CODE Plan of care discussed with Attending Dr. Coulter and PGY2 Dr. Sandee Green MD PGY 1 Attending Provider Attestation/Addendum Earline Jeffrey DO, attest that I was physically present for the vogel portions of the service and evaluated the patient with the resident and I reviewed and discussed the case with the resident and agree with the resident's findings and plans of care as documented above Patient is much more alert at this time. He states that he does not want to drink lactulose due to the frequent BMs. Patient states when he takes it at home, most of it gets spilled out of the bottle than what he actually takes. He has no other complaints otherwise. He appears to have 1+ pitting edema in b/l thighs. Will DC IV fluids and start diuretics. Case discussed with nephrology, aware that patient and family OK with dialysis if needed. Will continue to monitor renal function and I's and Os. Due to worsening liver function, will reach out to hepatology for further recommendations.
--- NOTE | 2024-09-11 11:43 | PC.CM ---
Addendum entered by Miriam Belle RN 09/11/24 19:30: I reached out to [facility] and they are reviewing patient for Liver transplant. I provided the number to the doctor and to Telemetry floor. Addendum entered by Miriam Belle RN 09/11/24 17:31: I spoke to [facility] transfer center to follow up on my transfer reqeust. Torres states they trying calling the doctor and they were unable to get a hold of her. I called Dr. Coulter and she states she did not get a call. Dr. Coulter asked me to provide them with the number to Leno Pa. I called back the transfer center at [facility] and I provided the number to Dr. Pa phone # [phone]. Original Note: 0933 I received a referral to transfer patient for liver transplant evaluation. I will reach out ot [facility] liver transplant.
--- NOTE | 2024-09-11 11:53 | PC.SS ---
Update: Plan is to transfer patient for hepatology service.
[2024-09-11] MEDS: FUROSEMIDE INJ 10 MG/ML 4ML VIAL 40 MG IVP (12:53)
[2024-09-11] MEDS: LACTULOSE SYRUP 20 GM/30 ML UDC 25 GM PO ×2 (13:07→21:13)
--- NOTE | 2024-09-11 13:35 | PD.NEPHPROG ---
Documentation for date of: 09/11/24 Subjective Subjective Interval history: Chart review done. Mr. Stack is a 74-year-old male with past medical history of liver cirrhosis secondary to alcohol use disorder, esophageal varices, ?Asthma/COPD, GERD, anxiety and BPH presented to [facility] on 08/28/2024 with a chief complaint of altered mental status. per EMS patient was found to be naked and altered. Noted to have dark blood all over the floor. During the hospital course patient had a GI bleed and was seen by Dr. Hall. Also noted to have metabolic encephalopathy-lactulose, rifaximin were initiated. For the last 24 hours his urine output has dropped significantly and renal consultation was requested. CT brain was negative. 09/08/2024 patient currently seen in telemetry.His current medications included folic acid, lactulose, Protonix, propranolol, rifaximin, thiamine.WBC 11.9, hemoglobin 9.5, platelets 131. Sodium 137, potassium 3.3, BUN 43, creatinine 2.9, calcium 9, phosphorus 3.9, total bilirubin 15.2, AST 132, ALT 53, albumin 1.7. Urine showed concentrated urine with blood and bilirubin. Urine sodium less than 15. Talk screen was negative. Hep panel showed AB and AB-. Hep C positive. Renal ultrasound this afternoon showed no hydronephrosis. No cortical thinning consistent with normal kidneys. Head CT on admission was negative. 09/09/2024 patient currently seen in telemetry. Today he seems to be more alert and awake. Last night hospitalist team called-patient complaining of abdominal pain and shortness of breath. Chest x-ray showed dilated bowel loops. Recommended KUB which showed ileus-NG tube was inserted overnight. Patient currently seems to be feeling little bit better. Denies any abdominal pain. Hemoglobin 9, platelets 109, WBC 11, sodium 137, potassium 3.4, BUN 44, creatinine 3.6, GFR 17, bilirubin significantly elevated to 19, AST 113, ALT 48, alk phos 155, albumin 2.1 urine sodium less than 15 urine output 225 mL/day Noted team started the patient on steroids. Patient has a decompensated liver cirrhosis. Hep C positive. Viral load pending. Dr. Hall on the case. Patient currently on albumin, midodrine, normal saline to rule out hepatorenal syndrome. Will continue the same for another 24 hours. If no improvement then HRS 1 diagnosis will be made 09/11/2024 patient currently seen in telemetry. He is having breakfast. Denies any chest pain, shortness of breath. More alert and awake. Made 500 mL urine last night. Blood sugar 109. Blood pressure 100/53, heart rate 69. Labs and medications reviewed. He is currently on midodrine, albumin 3 times daily, rifaximin. Did discuss with primary team-hold off on dialysis. Review of Systems Review of Systems Narrative Review of Systems: Patient more alert and awake. Able to respond and able to move his extremities. Denies any chest pain, shortness of breath. Exam Vital Signs Temp Pulse Resp BP Pulse Ox O2 Del Method O2 Flow Rate 36.8 C 105 H 19 119/71 92 L Room Air 1 09/11/24 08:00 09/11/24 13:07 09/11/24 08:00 09/11/24 13:07 09/11/24 08:00 09/11/24 08:00 09/11/24 03:49 Narrative Exam GENERAL APPEARANCE patient currently seen in telemetry Has NG tube to suction Scleral icterus, jaundice noted NECK: Neck supple, no JVD or bruit CARDIOVASCULAR: Heart regular, no murmurs LUNGS/CHEST: Chest clear to auscultation. No rales, rhonchi, wheezing ABDOMEN: Distended with decreased bowel sounds. EXTREMITIES: No edema, clubbing or cyanosis. SKIN: Jaundiced MUSCULOSKELETAL: In bed NEUROLOGICAL : More alert and awake Objective Labs 09/13/24 05:00 09/13/24 05:49 Labs: Laboratory Results - last 24 hr 09/11/24 04:50 WBC 14.7 H RBC 2.85 L Hgb 9.2 L Hct 27.0 L MCV 95 MCH 32.3 MCHC 34.1 RDW Std Deviation 70.7 H Plt Count 87 L Neut % (Auto) 84 H Lymph % (Auto) 7 L Ashley % (Auto) 9 Eos % (Auto) 0 Baso % (Auto) 0 Neut # (Auto) 12.3 H Lymph # (Auto) 1.0 Ashley # (Auto) 1.3 H Eos # (Auto) 0.0 Baso # (Auto) 0.0 Immature Gran # (Auto) 0.08 H Absolute Nucleated RBC 0.00 Immature Gran % 1 H Nucleated RBC % 0 Sodium 138 Potassium 3.6 Chloride 107 Carbon Dioxide 18.5 L Anion Gap 13 BUN 57 H Creatinine 3.6 H Estim Creat Clear Calc 18.0 L eGFR 17 L BUN/Creatinine Ratio 16 Glucose 127 H Calculated Osmolality 293 Calcium 7.7 L Corrected Calcium 8.9 Phosphorus 5.7 H Magnesium 2.4 Total Bilirubin 22.5 H* D AST 96 H ALT 47 Alkaline Phosphatase 146 H Total Protein 6.1 Albumin 2.5 L Globulin 3.6 H Albumin/Globulin Ratio 0.7 L ABG Interpretation ABG results: 08/28/24 08/29/24 09/03/24 22:40 10:05 15:24 ABG pH 7.41 7.50 H ABG pCO2 29 L 33 ABG pO2 69 L 63 L ABG HCO3 18 L 25 ABG O2 Saturation 94 94 ABG Base Excess -6 L 2 VBG pH 7.41 VBG pCO2 47 VBG pO2 30 VBG Base Excess 4 H Assessment & Plan Assessment and plan (1) Acute renal failure (ARF): Status: Acute (2) Acute upper gastrointestinal bleeding: Status: Acute (3) Cirrhosis of liver: Status: Acute (4) Hepatic encephalopathy: Status: Acute (5) Anemia: Status: Acute Additional Assessment & Plan Additional Plan: (1) Acute renal failure (ARF): Status: Acute Assessment and plan: Acute renal failure with worsening renal function and decreased urine output-rule out hepatorenal syndrome versus prerenal azotemia ?ATN with fluctuations in blood pressure. Due to edema-Lasix was given. Give albumin, midodrine today. Worsening of the liver failure. Suspect hepatorenal syndrome versus ATN from underlying prerenal azotemia. If no improvement might need to consider dialysis. (2) Acute upper gastrointestinal bleeding: Status: Acute Assessment and plan: Dr. Hall on the case. On PPI (3) Cirrhosis of liver: Status: Acute Assessment and plan: Patient seems to have decompensated liver cirrhosis with GI bleed, varices, hepatic encephalopathy, worsening renal function, thrombocytopenia, anemia. GI on the case. On lactulose, rifaximin patient has a prolonged hospital course for the last 11 days. Noted patient currently on steroids. Question transfer to higher level of care. Plan of care discussed with primary team. (4) Hepatic encephalopathy: Status: Acute Assessment and plan: On lactulose (5) Anemia: Status: Acute Assessment and plan: As needed transfusions Plan of care discussed with primary team Prognosis remains poor without liver transplant. Quality - progress note Quality Measures Quality Measures: VTE prophylaxis Reason for Continued Stay Reason for Continued Stay: further monitoring
--- NOTE | 2024-09-11 17:13 | PC.SS ---
Rounding Note: Plan is to transfer patient to [facility].
--- NOTE | 2024-09-11 19:14 | EVENTNT_ITS ---
<Statement entered by Checo Ignacio MD - 09/12/24 07:39> I discussed with and supervised the pricing intern physician involved in the care of this patient. Patient assessment and plan was discussed with entire medicine team, including my attending. I agree with the assessment and plan as documented by pricing intern doctor. Patient care was discussed with my attending physician Dr. Marylin Ignacio, PGY-2 Documentation for date of: 09/11/24 Event Note Event Note: Spoke to Debrander Yeimi Felipe from [facility]. She recommended to obtain blood and urine culture for patient. Also to empirically treat patient with Zosyn , Vancomycin IV and Fluconazole until culture results are obtained. Hold prednisone as well. Also recommended to transfer patient to tertiary centre for higher level of care. Plan of care discussed with Attending Dr. Coulter and PGY2 Dr. Sandee Green MD PGY 1
--- NOTE | 2024-09-11 19:31 | ESPR_ITS ---
Documentation for date of: 09/11/24 Subjective Subjective Interval history: Agree with the transfer to a tertiary center Prognosis at best remains poor Continue current management Exam Vital Signs Temp Pulse Resp BP Pulse Ox O2 Del Method O2 Flow Rate 98.0 F 60 16 97/58 L 93 L Room Air 1 09/11/24 16:00 09/11/24 16:00 09/11/24 16:00 09/11/24 16:00 09/11/24 16:00 09/11/24 16:00 09/11/24 03:49 Objective Labs 09/11/24 04:50 09/11/24 04:50 Labs: Laboratory Results - last 24 hr 09/11/24 04:50 WBC 14.7 H RBC 2.85 L Hgb 9.2 L Hct 27.0 L MCV 95 MCH 32.3 MCHC 34.1 RDW Std Deviation 70.7 H Plt Count 87 L Neut % (Auto) 84 H Lymph % (Auto) 7 L [place] % (Auto) 9 Eos % (Auto) 0 Baso % (Auto) 0 Neut # (Auto) 12.3 H Lymph # (Auto) 1.0 [place] # (Auto) 1.3 H Eos # (Auto) 0.0 Baso # (Auto) 0.0 Immature Gran # (Auto) 0.08 H Absolute Nucleated RBC 0.00 Immature Gran % 1 H Nucleated RBC % 0 Sodium 138 Potassium 3.6 Chloride 107 Carbon Dioxide 18.5 L Anion Gap 13 BUN 57 H Creatinine 3.6 H Estim Creat Clear Calc 18.0 L eGFR 17 L BUN/Creatinine Ratio 16 Glucose 127 H Calculated Osmolality 293 Calcium 7.7 L Corrected Calcium 8.9 Phosphorus 5.7 H Magnesium 2.4 Total Bilirubin 22.5 H* D AST 96 H ALT 47 Alkaline Phosphatase 146 H Total Protein 6.1 Albumin 2.5 L Globulin 3.6 H Albumin/Globulin Ratio 0.7 L Impressions Impression: Upper GI bleed stable CONNOR Possible SBP Agree with broad-spectrum coverage Possible transfer to a tertiary center ABG Interpretation ABG results: 08/28/24 08/29/24 09/03/24 22:40 10:05 15:24 ABG pH 7.41 7.50 H ABG pCO2 29 L 33 ABG pO2 69 L 63 L ABG HCO3 18 L 25 ABG O2 Saturation 94 94 ABG Base Excess -6 L 2 VBG pH 7.41 VBG pCO2 47 VBG pO2 30 VBG Base Excess 4 H Assessment & Plan A&P Narrative # Acute upper GI bleed in the form of melena # Acute posthemorrhagic anemia # Acute hepatic encephalopathy # Chronic liver disease with thrombocytopenia abnormal liver function test and coagulopathy secondary to alcohol Plan Agree with the blood transfusion give patient 2 units of PRBC Octreotide infusion Lactulose and Xifaxan Consent will be obtained from the sister who makes that decision for fiberoptic esophagogastroduodenoscopy with possible therapeutic intervention under intravenous moderate sedation Prognosis guarded Thank you for the opportunity to participate in the care of this patient Time Spent With Patient Time: Total time spent is greater than 50% in coordination of care (as documented) at patient's floor/unit and/or counseling patient:
[2024-09-11] MEDS: FLUCONAZOLE 100 MG TABLET 200 MG PO (19:44)
[2024-09-11] MEDS: PHYTONADIONE INJ 10 MG/ML AMP SC (19:45)
[2024-09-11] MEDS: PIPER/TAZO INJ 4.5 GM in SODIUM CHLORIDE 0.9% (P) 100 ML IV (19:50)
[2024-09-11] MEDS: VANCOMYCIN/WATER 1250 MG IVPB 250 ML 120 MG IV (20:18)
[2024-09-12] VITALS (12 sets, daily range): BP systolic 95–119; BP diastolic 49–69; PULSE 51–71; RESP 11–96; TEMP 36.3–37.5; O2SAT 93–100
--- NOTE | 2024-09-12 02:51 | PC.NURSE ---
DR. DOWNS NOTIFIED PT'S BRADYCARDIA HR WENT DOWN TO 40 BPM BRIEFLY WHILE PT SLEEPING. PT AWAKEN EASILY TO CALL OF NAME AND HR UP TO 56. BP 107/57, PT AOX3, DENIES PAIN. NO NEW ORDER.
[2024-09-12] MEDS: MIDODRINE 5 MG TABLET 10 MG PO (05:17)
[2024-09-12] MEDS: LACTULOSE SYRUP 20 GM/30 ML UDC 25 GM PO ×2 (05:17→20:42)
[2024-09-12 05:21] LABS: Basophils % (Auto) 0 % (0-2.5); Eosinophils % (Auto) 0 % (0-10); Hematocrit 24.8 % (41.0-53.0); Immature Granulocytes % (Auto) 1 % (0-0); Immature Granulocytes Auto 0.08 Thou/mm3 (0.00-0.00); Lymphocytes # (Auto) 0.9 Thou/mm3 (1.0-4.8); Lymphocytes % (Auto) 7 % (10-50); Mean Corpuscular HGB Conc 34.3 g/dl (31.0-37.0); Mean Corpuscular Hemoglobin 32.2 pg (25.0-35.0); Mean Corpuscular Volume 94 fL (80-100); Monocytes # (Auto) 1.4 Thou/mm3 (0.0-0.8); Monocytes % (Auto) 11 % (0-12); Neutrophils # (Auto) 10.9 Thou/mm3 (1.8-7.7); Neutrophils % (Auto) 82 % (37-80); Nucleated Red Blood Cell % 0 /100 WBC (0); Platelet Count 98 Thou/mm3 (140-440); RDW Standard Deviation 69.6 fL (35.1-43.9); Red Blood Count 2.64 Miln/mm3 (4.50-5.90); White Blood Count 13.3 Thou/mm3 (3.8-10.6)
[2024-09-12 05:23] LABS: Hemoglobin 8.5 g/dL (13.5-16.0)
[2024-09-12 05:56] LABS: INR 2.8 (0.9-1.3); Prothrombin Time 28.2 Seconds (9.0-12.2)
[2024-09-12 06:36] LABS: Anion Gap 12 (7-16); BUN/Creatinine Ratio 16 Ratio (12-20); Blood Urea Nitrogen 58 mg/dL (9-23); Carbon Dioxide 17.9 mMol/L (20.0-31.0); Chloride 109 mMol/L (98-107); Creatinine (Component) 3.7 mg/dL (0.6-1.3); Estimated Creatinine Clearance 17.5 mL/min (>60); Glucose 121 mg/dL (74-106); Osmolality,Calculated 294 (275-295); Potassium 3.4 mMol/L (3.4-5.1); Sodium 139 mMol/L (136-145); eGFR 16 See Note
[2024-09-12 06:38] LABS: Calcium 7.9 mg/dL (8.3-10.6); Magnesium 2.3 mg/dL (1.6-2.6); Phosphorous 5.5 mg/dL (2.4-5.1)
[2024-09-12 06:39] LABS: Alanine Aminotransferase 48 U/L (10-49); Albumin, Serum 2.1 gm/dL (3.4-4.8); Albumin/Globulin Ratio 0.6 (1.2-2.2); Alkaline Phosphatase 133 U/L (46-116); Aspartate Amino Transferase 93 U/L (0-34); Calcium (Corrected) 9.4 mg/dL (8.5-10.1); Globulin 3.3 gm/dL (2.3-3.5); Total Protein 5.4 gm/dL (5.7-8.2)
[2024-09-12 06:41] LABS: Bilirubin,Total 20.8 mg/dL (0.3-1.2)
[2024-09-12 06:53] LABS: Vancomycin,Random 13.5 mcg/mL
--- NOTE | 2024-09-12 08:43 | XR_ITS ---
Examination: AP chest single view TECHNIQUE: AP portable upright chest single view Exam date and time: September 12, 2024 at 0900 hours Comparison September 08, 2024 INDICATIONS: Shortness of breath today. FINDINGS: Atelectasis versus early pneumonia right base Significant elevation right hemidiaphragm Normal heart size Moderate vascular congestion Severe osteopenia IMPRESSION: Atelectasis versus early pneumonia right base, clinical correlation advised Moderate vascular congestion
[2024-09-12] MEDS: PANTOPRAZOLE 40 MG TABLET PO (08:54)
[2024-09-12] MEDS: PIPER/TAZO INJ 3.375 GM in SODIUM CHLORIDE 0.9% (Popper) 50 ML IV ×2 (08:54→20:38)
[2024-09-12] MEDS: FLUCONAZOLE 100 MG TABLET 200 MG PO (08:56)
[2024-09-12] MEDS: FOLIC ACID 1 MG TABLET PO (08:56)
[2024-09-12] MEDS: THIAMINE 100 MG TABLET PO (08:56)
[2024-09-12] MEDS: PHYTONADIONE INJ 10 MG/ML AMP SC (08:56)
--- NOTE | 2024-09-12 09:09 | PD.NEPHPROG ---
Documentation for date of: 09/12/24 Subjective Subjective Interval history: Chart review done. Mr. Stack is a 74-year-old male with past medical history of liver cirrhosis secondary to alcohol use disorder, esophageal varices, ?Asthma/COPD, GERD, anxiety and BPH presented to [facility] on 08/28/2024 with a chief complaint of altered mental status. per EMS patient was found to be naked and altered. Noted to have dark blood all over the floor. During the hospital course patient had a GI bleed and was seen by Dr. Hall. Also noted to have metabolic encephalopathy-lactulose, rifaximin were initiated. For the last 24 hours his urine output has dropped significantly and renal consultation was requested. CT brain was negative. 09/08/2024 patient currently seen in telemetry.His current medications included folic acid, lactulose, Protonix, propranolol, rifaximin, thiamine.WBC 11.9, hemoglobin 9.5, platelets 131. Sodium 137, potassium 3.3, BUN 43, creatinine 2.9, calcium 9, phosphorus 3.9, total bilirubin 15.2, AST 132, ALT 53, albumin 1.7. Urine showed concentrated urine with blood and bilirubin. Urine sodium less than 15. Talk screen was negative. Hep panel showed AB and AB-. Hep C positive. Renal ultrasound this afternoon showed no hydronephrosis. No cortical thinning consistent with normal kidneys. Head CT on admission was negative. 09/09/2024 patient currently seen in telemetry. Today he seems to be more alert and awake. Last night hospitalist team called-patient complaining of abdominal pain and shortness of breath. Chest x-ray showed dilated bowel loops. Recommended KUB which showed ileus-NG tube was inserted overnight. Patient currently seems to be feeling little bit better. Denies any abdominal pain. Hemoglobin 9, platelets 109, WBC 11, sodium 137, potassium 3.4, BUN 44, creatinine 3.6, GFR 17, bilirubin significantly elevated to 19, AST 113, ALT 48, alk phos 155, albumin 2.1 urine sodium less than 15 urine output 225 mL/day Noted team started the patient on steroids. Patient has a decompensated liver cirrhosis. Hep C positive. Viral load pending. Dr. Hall on the case. Patient currently on albumin, midodrine, normal saline to rule out hepatorenal syndrome. Will continue the same for another 24 hours. If no improvement then HRS 1 diagnosis will be made 09/10/2024 patient currently seen in telemetry. He is having breakfast. Denies any chest pain, shortness of breath. More alert and awake. Made 500 mL urine last night. Blood sugar 109. Blood pressure 100/53, heart rate 69. WBC 12.3, hemoglobin 8.2, platelets 94. Sodium 137, potassium 3.4, bicarbonate 18.8, BUN 56, creatinine 3.9, glucose 133, calcium 9.1, phosphorus 5.1, magnesium 2.6, total bilirubin 20.9, AST 53, ALT 43, alk phos 133, albumin 2.4. He is currently on midodrine, normal saline at 125 mL/h, albumin 3 times daily, rifaximin. 09/12/2024 patient currently seen in telemetry. Labs, medications reviewed. Creatinine still elevated. BUN, bilirubin significantly elevated. Spoke to Dr. Otoole-continue with diuretics. Continue with albumin, rifaximin, midodrine. Patient could be going towards hepatorenal syndrome versus ATN. Did talk to the patient that if no improvement in renal function will plan for renal replacement therapy on Sunday. He agreed. Family requested all aggressive measures including dialysis if needed. Noted transfer was denied by [facility]. Review of Systems Review of Systems Narrative Review of Systems: Patient more alert and awake. Able to respond and able to move his extremities. Denies any chest pain, shortness of breath. Anxious to go home. Exam Vital Signs Temp Pulse Resp BP Pulse Ox O2 Del Method O2 Flow Rate 37.2 C 54 L 18 96/64 94 L Room Air 1 09/12/24 04:00 09/12/24 08:55 09/12/24 08:24 09/12/24 08:55 09/12/24 08:24 09/12/24 04:00 09/11/24 03:49 Narrative Exam GENERAL APPEARANCE patient currently seen in telemetry Has NG tube to suction Scleral icterus, jaundice noted NECK: Neck supple, no JVD or bruit CARDIOVASCULAR: Heart regular, no murmurs LUNGS/CHEST: Chest clear to auscultation. No rales, rhonchi, wheezing ABDOMEN: Distended with decreased bowel sounds. EXTREMITIES: No edema, clubbing or cyanosis. SKIN: Jaundiced MUSCULOSKELETAL: In bed NEUROLOGICAL : More alert and awake Objective Labs 09/13/24 05:00 09/13/24 05:49 Labs: Laboratory Results - last 24 hr 09/12/24 04:59 WBC 13.3 H RBC 2.64 L Hgb 8.5 L Hct 24.8 L MCV 94 MCH 32.2 MCHC 34.3 RDW Std Deviation 69.6 H Plt Count 98 L Neut % (Auto) 82 H Lymph % (Auto) 7 L [place] % (Auto) 11 Eos % (Auto) 0 Baso % (Auto) 0 Neut # (Auto) 10.9 H Lymph # (Auto) 0.9 L [place] # (Auto) 1.4 H Eos # (Auto) 0.0 Baso # (Auto) 0.0 Immature Gran # (Auto) 0.08 H Absolute Nucleated RBC 0.00 Immature Gran % 1 H Nucleated RBC % 0 PT 28.2 H D INR 2.8 H Sodium 139 Potassium 3.4 Chloride 109 H Carbon Dioxide 17.9 L Anion Gap 12 BUN 58 H Creatinine 3.7 H Estim Creat Clear Calc 17.5 L eGFR 16 L BUN/Creatinine Ratio 16 Glucose 121 H Calculated Osmolality 294 Calcium 7.9 L Corrected Calcium 9.4 Phosphorus 5.5 H Magnesium 2.3 Total Bilirubin 20.8 H* D AST 93 H ALT 48 Alkaline Phosphatase 133 H Total Protein 5.4 L Albumin 2.1 L Globulin 3.3 Albumin/Globulin Ratio 0.6 L Random Vancomycin 13.5 ABG Interpretation ABG results: 08/28/24 08/29/24 09/03/24 22:40 10:05 15:24 ABG pH 7.41 7.50 H ABG pCO2 29 L 33 ABG pO2 69 L 63 L ABG HCO3 18 L 25 ABG O2 Saturation 94 94 ABG Base Excess -6 L 2 VBG pH 7.41 VBG pCO2 47 VBG pO2 30 VBG Base Excess 4 H Assessment & Plan Assessment and plan (1) Acute renal failure (ARF): Status: Acute (2) Acute upper gastrointestinal bleeding: Status: Acute (3) Cirrhosis of liver: Status: Acute (4) Hepatic encephalopathy: Status: Acute (5) Anemia: Status: Acute Additional Assessment & Plan Additional Plan: (1) Acute renal failure (ARF): Status: Acute Assessment and plan: Acute renal failure with worsening renal function and decreased urine output-rule out hepatorenal syndrome versus prerenal azotemia// ATN with fluctuations in blood pressure. Patient received 1 dose of Lasix yesterday. Hold off on fluids and diuretics today. Currently on rifaximin, albumin, midodrine . If no improvement in renal function then the diagnosis will be made for HRS. If HRS type I prognosis remains guarded. Will plan for renal replacement therapy on Sunday if no improvement in azotemia. (2) Acute upper gastrointestinal bleeding: Status: Acute Assessment and plan: Dr. Hall on the case. On PPI (3) Cirrhosis of liver: Status: Acute Assessment and plan: Patient seems to have decompensated liver cirrhosis with GI bleed, varices, hepatic encephalopathy, worsening renal function, thrombocytopenia, anemia. GI on the case. On lactulose, rifaximin patient has a prolonged hospital course for the last 11 days. Patient on steroids. Question MAC in the setting of decompensated liver cirrhosis. Spoke to Dr. Coulter (4) Hepatic encephalopathy: Status: Acute Assessment and plan: On lactulose (5) Anemia: Status: Acute Assessment and plan: As needed transfusions Plan of care discussed with primary team Prognosis remains poor without liver transplant. Quality - progress note Quality Measures Quality Measures: VTE prophylaxis Reason for Continued Stay Reason for Continued Stay: further monitoring
--- NOTE | 2024-09-12 09:35 | XR_ITS ---
Examination: Abdomen AP single view Technique: AP portable supine abdomen, single view Exam date and time: September 12, 2024 at 1002 hours INDICATIONS: Abdominal distention today. FINDINGS: Mildly air distended stomach Air distended small bowel loops in the midabdomen IMPRESSION: Consider CT scan abdomen pelvis post intravenous contrast follow-up to exclude small bowel obstruction
[2024-09-12] MEDS: VANCOMYCIN/NS 500 MG IVPB 100 ML 120 MG IV (10:41)
--- NOTE | 2024-09-12 10:51 | PC.SS ---
SS update: received call from [facility]. She informed she will cancel auth as of today as patient is pending transfer. Patient will require a new authorization for SNF.
[2024-09-12] MEDS: ACETYLCYSTEINE IV ×3 (11:14→17:38)
[2024-09-12] MEDS: DEXTROSE 5% IV ×3 (11:14→17:38)
[2024-09-12] MEDS: WATER ACETYLCYSTEINE IV ×3 (11:14→17:38)
[2024-09-12 11:28] LABS: Misc Send Out* See Sep Rpt
--- NOTE | 2024-09-12 11:34 | ESPR_ITS ---
<Statement entered by Checo Ignacio MD - 09/12/24 14:21> Patient had 1.9L urine output with 2 bowel movements. HSV, EBV, Hep E serology ordered. We will try to transfer patient to another tertiary facility. I discussed with and supervised the senior insight manager international physician involved in the care of this patient. Patient assessment and plan was discussed with entire medicine team, including my attending. I agree with the assessment and plan as documented by senior insight manager international doctor. Patient care was discussed with my attending physician Dr. Marylin Ignacio, PGY-2 Documentation for date of: 09/12/24 Subjective Subjective Interval history: Patient was seen and examined at bedside this AM. No acute exents overnight. Patient tolerating minimal diet, adequate urine output and mentation is at baseline. Patient complains of generalized abdominal pain and cramping. Patient had 6 bowel movements in the past 24 hours Will decrease lactulose to 25G p.o. 2 times daily and order KUB x-ray T. bili decreased to 20.8 from 22.5 Phosphorus 5.5. Started on sevelamer 800 Mg p.o. 3 times daily with meals Creatinine increased to 3.7 from 3.6. Urine output 1900 cc in 24 hours. Bicarb 17.9. Started on Bicitra 30 mL p.o. twice daily. Discontinued prednisone 40 Mg p.o. daily Started on acetylcysteine 750 Mg IV daily for 3 days to complete on 09/14/2024 for acute on chronic liver failure Day 2 of Phytonadione 10 Mg SC daily for total 3 days only 09/13/2024 HCV RNA PCR quant pending. EBV, CMV, Hep E and HIV 1 and 2 ordered Blood and urine cultures pending Exam Vital Signs Temp Pulse Resp BP Pulse Ox O2 Del Method O2 Flow Rate 98.3 F 54 L 18 96/64 94 L Room Air 1 09/12/24 08:00 09/12/24 08:55 09/12/24 08:24 09/12/24 08:55 09/12/24 08:24 09/12/24 08:00 09/11/24 03:49 Narrative Exam Constitutional Alert, oriented x 3 in no acute distress. Scleral icterus. HEENT Vision grossly intact. Patent nares. Trachea midline Respiratory Chest normal on inspection and clear to aucultation bilaterally Cardiovascular S1 and S2 audible, RRR. No murmurs carotid bruit. No gross JVD. Abdominal Soft, distended, mass palpated in extending from right upper quadrant to right lower quadrant most consistent with hepatomegaly, tender to palpation in all quadrants. Bowel sounds present Genitourinary No bladder tenderness, no flank pain. Normal to palpation Musculoskeletal Extremities tone within normal limits. 1+ pitting edema at hips bilaterally- improving Neurological CN II - XII grossly intact. Extremity motor and sensation grossly intact. Skin Warm, dry and intact. No apparent lesions. Psychiatric Patient has good affect, is cooperative Objective Labs 09/12/24 04:59 09/12/24 04:59 Labs: Laboratory Results - last 24 hr 09/12/24 04:59 WBC 13.3 H RBC 2.64 L Hgb 8.5 L Hct 24.8 L MCV 94 MCH 32.2 MCHC 34.3 RDW Std Deviation 69.6 H Plt Count 98 L Neut % (Auto) 82 H Lymph % (Auto) 7 L [place] % (Auto) 11 Eos % (Auto) 0 Baso % (Auto) 0 Neut # (Auto) 10.9 H Lymph # (Auto) 0.9 L [place] # (Auto) 1.4 H Eos # (Auto) 0.0 Baso # (Auto) 0.0 Immature Gran # (Auto) 0.08 H Absolute Nucleated RBC 0.00 Immature Gran % 1 H Nucleated RBC % 0 PT 28.2 H D INR 2.8 H Sodium 139 Potassium 3.4 Chloride 109 H Carbon Dioxide 17.9 L Anion Gap 12 BUN 58 H Creatinine 3.7 H Estim Creat Clear Calc 17.5 L eGFR 16 L BUN/Creatinine Ratio 16 Glucose 121 H Calculated Osmolality 294 Calcium 7.9 L Corrected Calcium 9.4 Phosphorus 5.5 H Magnesium 2.3 Total Bilirubin 20.8 H* D AST 93 H ALT 48 Alkaline Phosphatase 133 H Total Protein 5.4 L Albumin 2.1 L Globulin 3.3 Albumin/Globulin Ratio 0.6 L Random Vancomycin 13.5 ABG Interpretation ABG results: 08/28/24 08/29/24 09/03/24 22:40 10:05 15:24 ABG pH 7.41 7.50 H ABG pCO2 29 L 33 ABG pO2 69 L 63 L ABG HCO3 18 L 25 ABG O2 Saturation 94 94 ABG Base Excess -6 L 2 VBG pH 7.41 VBG pCO2 47 VBG pO2 30 VBG Base Excess 4 H Quality Measures Quality Measures none Advance care planning discussed with:: sibling Assessment & Plan Assessment Current Active Medications: Generic Name Dose Route Start Last Admin Trade Name Freq PRN Reason Stop Dose Admin Acetaminophen 325 mg 08/28/24 20:28 Acetaminophen 325 Mg Tablet PO 09/27/24 20:27 Q6H PRN PAIN SCALE 1-3 (mild Albuterol/Ipratropium 3 ml 08/28/24 20:24 09/10/24 00:33 Albuterol/Ipratropium (Duoneb) Rt Janessa 3 Ml Nebu INH 09/27/24 22:59 3 ml Q4HRRT PRN Administration Wheeze Citric Acid/Sodium Citrate 30 ml 09/12/24 09:45 Citric Acid/Sodium Citr 15 Ml Udc (Bicitra) PO 10/12/24 09:44 BID JERSON Fluconazole 200 mg 09/11/24 19:15 09/12/24 08:56 Fluconazole 100 Mg Tablet PO 09/18/24 19:14 200 mg QDAY JERSON Administration Folic Acid 1 mg 08/29/24 09:00 09/12/24 08:56 Folic Acid 1 Mg Tablet PO 09/28/24 08:59 1 mg QDAY JERSON Administration Piperacillin Sod/Tazobactam 50 mls @ 12.5 mls/hr 09/12/24 09:00 09/12/24 08:54 Sod 3.375 gm/ Sodium Chloride IV 09/19/24 08:59 12.5 mls/hr Q12HR JERSON Administration Acetylcysteine 11,250 mg/ 256.25 mls @ 256.25 mls/hr 09/12/24 08:51 09/12/24 11:14 Dextrose IV 10/12/24 08:50 256.25 mls/hr .BY DURATION JERSON Administration Acetylcysteine 3,750 mg/ 518.75 mls @ 129.687 mls/hr 09/12/24 08:51 Dextrose IV 10/12/24 08:50 .BY DURATION JERSON Acetylcysteine 7,500 mg/ 1,037.5 mls @ 64.844 mls/hr 09/12/24 08:51 Dextrose IV 10/12/24 08:50 .BY DURATION JERSON Lactulose 25 gm 09/11/24 14:00 09/12/24 05:17 Lactulose Syrup 20 Gm/30 Ml Udc PO 10/11/24 13:59 25 gm TID JERSON Administration Protocol Midodrine 10 mg 09/09/24 08:00 09/12/24 05:17 Midodrine 5 Mg Tablet PO 10/09/24 07:59 10 mg TID JERSON Administration Pantoprazole Sodium 40 mg 09/08/24 09:00 09/12/24 08:54 Pantoprazole 40 Mg Tablet PO 10/08/24 08:59 40 mg QDAY JERSON Administration Pharmacy Consult 1 each 09/11/24 19:15 09/11/24 20:18 Vancomycin Pharmacy To Dose 1 Each Each IV 10/11/24 19:14 1 each QDAY JERSON Administration Phytonadione 10 mg 09/11/24 19:15 09/12/24 08:56 Phytonadione Inj 10 Mg/Ml Amp SC 09/13/24 19:14 10 mg QDAY JERSON Administration Propranolol HCl 10 mg 09/03/24 21:00 09/12/24 08:55 Propranolol 10 Mg Tablet PO 10/03/24 20:59 Not Given BID JERSON Sevelamer Carbonate 800 mg 09/12/24 12:00 Sevelamer Carbonate 800 Mg Tablet PO 10/12/24 11:59 TIDWM JERSON Sodium Chloride 5 ml 08/28/24 17:29 08/28/24 18:47 Sodium Chloride Rt Janessa 0.9% 3 Ml Nebu INH 09/27/24 17:28 3 ml PRN PRN Administration SOLN Thiamine HCl 100 mg 08/28/24 20:45 09/12/24 08:56 Thiamine 100 Mg Tablet PO 09/27/24 20:44 100 mg QDAY JERSON Administration Plan Mr. Stack is a 74-year-old male with past medical history of liver cirrhosis secondary to alcohol use disorder, esophageal varices, ?Asthma/COPD, GERD, anxiety and BPH who was BIBA to [facility] emergency department from home on 08/28/2024 with a chief complaint of altered mental status. Patient will be admitted for workup and management of hepatic encephalopathy and acute blood loss anemia. 1. Acute on chronic liver failure with coagulopathy and thrombocytopenia 2. Portal hypertension with esophageal varices, hypertensive portal gastropathy and ascites 3. Hyperbilirubinemia 4. Hepatitis C Plt 87 Hepatitis C antibody positive [08/31/2024] HCV RNA PCR quant pending. EBV, CMV, Hep E and HIV 1 and 2 pending Blood and urine cultures pending EGD completed on 08/29/2024 findings include: Diffuse hypertensive portal gastropathy with mucosal oozing of blood and 1+ esophageal varices not large enough for band ligation. Abdominal ultrasound completed on 09/11/2024 findings include: Gallbladder sludge. Gallbladder wall thickened 0.5 cm. Cirrhosis and mild ascites. Meld?NA score 38 points. 65-66% 90-day mortality. Child?Hernandez class C. 12 points. Life expectancy 1-3 years. Abdominal surgery mortality 82% Madrey score 42. Patient may benefit from steroids Patient complains of generalized abdominal pain and cramping. Patient had 6 bowel movements in the past 24 hours Will decrease lactulose to 25G p.o. 2 times daily and order KUB x-ray T. bili decreased to 20.8 from 22.5. PT 28.2 and INR 2.8 Discontinued prednisone 40 Mg p.o. daily Started on acetylcysteine 750 Mg IV daily for 3 days to complete on 09/14/2024 for acute on chronic liver failure Day 2 of Phytonadione 10 Mg SC daily for total 3 days only 09/13/2024 Plan: ? KUB x-ray ordered ? Blood and urine cultures pending ? HCV RNA quant results pending ? EBV, CMV, Hep E and HIV 1 and 2 ordered ? Continue cardiac diet. ? Discontinued prednisone 40 Mg p.o. daily due to risk of infection as patient is immunocompromised ? Continue Protonix 40 Mg p.o. daily ? Continue fluconazole 200 Mg p.o. daily ? Day 2 of Phytonadione 10 Mg SC daily for total 3 days only 09/13/2024 ? Started on acetylcysteine 750 Mg IV daily for 3 days to complete on 09/14/2024 for acute on chronic liver failure - Transfer initiated to tertiary center ? GIDr. Hall onboard and closely following the case. Appreciate recommendations. 5. Acute kidney injury prerenal versus renal 6. Anasarca 7. Proteinuria 8. Non anion gap metabolic acidosis Baseline CR 0.5. Etiology: AIN, medication side effect, dehydration, hepatorenal syndrome Urine creatinine 216, urine random protein 100, urine sodium <15, urine potassium 50, urine chloride <20. Renal ultrasound completed on 09/08/2024 findings include: No hydronephrosis, no significant cortical thinning. Completed 2 days albumin 25 g IV 3 times daily from [09/08 - 09/10] as per nephrology recommendations Creatinine increased to 3.7 from 3.6. Urine output 1900 cc in 24 hours. Bicarb 17.9. Started on Bicitra 30 mL p.o. twice daily. Plan: ? Held midodrine to 10 Mg p.o. 3 times daily due to concern of urinary retention ? Started on Bicitra 30 mL p.o. twice daily ? Renally dose medication ? Avoid nephrotoxic agents ? Leather Etcher, Dr Medrano onboard and closely following the case. Appreciate recommendations 8. Altered mental status secondary to acute metabolic encephalopathy - resolving At baseline patient is conversational and oriented x 3. On admission patient was altered and ANO x 0. On exam patient's pupils reactive to light nonverbal and unresponsive to sternal rub. DDx: Hepatic encephalopathy, medication side effect, TIA CT brain was negative for hemorrhage, mass effect or midline shift Ammonia 57 Patient now oriented x 3. Patient had 6 bowel movements in the past 24 hours Will decrease lactulose to 25G p.o. 2 times daily Plan: ? Aspiration precautions ? Head of bed elevation ? Neurochecks every 4 hourly ? Decreased lactulose to 25G p.o. 2 times daily from 25G p.o. 3 times daily ? Continue rifaximin 550 Mg p.o. twice daily ? Continue thiamine p.o. 9. Likely aspiration pneumonia - resolved Patient presented with altered mental status On exam patient has decreased air entry at the bases Chest x-ray showed trace fluid in horizontal fissure right lung. Completed 7 days of Augmentin 1 tab p.o. twice daily from [08/30?09/06] 10. Hypokalemia - resolved 11. Hyperphosphatemia Phosphorus 5.5. Started on sevelamer 800 Mg p.o. 3 times daily with meals Plan: ? Started on sevelamer 800 Mg p.o. 3 times daily with meals 12. Acute blood loss anemia secondary to GI bleed?resolved 13. Likely upper GI bleed secondary to esophageal varices?resolved Patient was found unconscious in a pool of coffee-ground emesis On admission patient's Hb 7.6 and he received 2 units PRBC. Post H&H 7.4 Currently Hb 9.2, Hct 27 14. Asthma 15. COPD Home medication Trelegy inhaler pCO2 47 Plan: ? DuoNebs as needed 16. Low TSH 17. Low T4 TSH 0.39, T4 0.84 Likely normal based on patient age 16. Goals of care discussion - SNF [09/01/2024] spoke to next of kin, Maggy Romero over the phone at . Briefly updated her on patient's hospital course and asked her to come in today for a goals of care discussion. Ms. Romero agreed for 3 PM and said she would call if any change of plans. At baseline she says that patient is independent and can carry out all his ADLs. He also has home health who visits him 6 days a week for a total of 21 hours. Patient's next of kin did not show up today. Will reach out again tomorrow. [09/02/2024] Spoke to next of kin, Maggy Romero over the phone at [phone]. Briefly updated her on patient's hospital course and asked her to come in today for a goals of care discussion. She said she might be able to come in tomorrow for an in person visit. Offered her the options of [facility] facility versus hospice. She needs more time to think about it. [09/03/2024] Spoke to next of kin, Maggy Romero and her son at bedside. They expressed their wishes for chcf. All questions asked were answered and concerns addressed. [09/06/2024] social services designee in contact with family members, patient to be discharged to SNF, pending authorization and voiding trial (09/10/2024) Spoke with Maggy Romero on the phone, sister OK with hemodialysis if needed. [09/11/2024] Discussed the current management and prognosis with next of kin, Maggy. Discussed worsening of liver function, kidney injury and high likelihood of deterioration and possible . Also updated her that hotel night auditor does not recommend hemodialysis at this point. Also told her that we will try to obtain a hepatology consult. All questions and concerns were addressed and understanding was expressed. Health maintenance: Disposition: Possible transfer to tertiary center for higher level of care. IV antibiotics, IV medication. Pending blood and urine cultures Diet: Cardiac Lines: pIVs GI Prophylaxis: Pantoprazole Thrombo Prophylaxis: SCDs Code status: FULL CODE Plan of care discussed with Attending Dr. Coulter and PGY2 Dr. Sandee Green MD PGY 1 Attending Provider Attestation/Addendum I, Earline Coulter DO, attest that I was physically present for the vogel portions of the service and evaluated the patient with the resident and I reviewed and discussed the case with the resident and agree with the resident's findings and plans of care as documented above Patient seen and evaluated this AM. He complains about frequent bowel movements. [facility], but rather broad spectrum abx and antifungal coverage as patient is immunocompromised. Bcx, ucx and CXR ordered/ pending. Since hx of alcohol use was over 4 years ago, steroids are not indicated as he is unlikely to be in acute alcoholic hepatitis. Hepatitis C Ab is positive, but genotype and viral loads have been checked in the past and negative. Pt likely had spontaneous clearance of HCV. Cause of acute liver failure remains unclear. Will give VitK as recommended. Patient today reports some abdominal discomfort, but abdomen is soft and mildly tender on deep palpation. He reports sharp pains all over. KUB shows dilated loops of bowel. However, patient continues to pass gas and have small bowel movements. SBO unlikely. Will continue to monitor renal function closely. Hepatorenal syndrome is less likely as patient only has trace protein in UA. Patient kenneth has CONNOR. However, upon discussion with nephro, concern that patient may be progressing to ATN. Family and patient are agreeable to dialysis otherwise. Will also add bicitra due to metabolic acidosis. Started on N-acetylcysteine for acute liver failure.
[2024-09-12] MEDS: POTASSIUM CHLORIDE 10% 20 MEQ/15 ML UDC PO (11:53)
[2024-09-12] MEDS: CITRIC ACID/SODIUM CITR 15 ML UDC (BICITRA) 30 ML PO ×2 (11:57→20:44)
[2024-09-12] MEDS: SEVELAMER CARBONATE 800 MG TABLET PO ×2 (11:58→17:29)
--- NOTE | 2024-09-12 14:29 | PC.SS ---
Rounding note: pending HLOC transfer.
[2024-09-12 15:54] LABS: HIV (1&2) Antibody Rapid Non-Reactive
--- NOTE | 2024-09-12 17:24 | PC.CM ---
Addendum entered by Miriam Belle RN 09/12/24 18:00: I initiated transfer with [facility] and I faxed over information. Patient information provided. I started the packet. Original Note: [address] Coulter earlier today and she is aware that [facility] declined patient stating he was not a candidate for liver transplant. Patient is needing hepatology. Dr. Coulter states family still wants to pursue tranfer and she asked that I reach out to other facilities. I spoke to Winifred with patient's insurance [employer]. Winifred was given an update. Winifred states [employer] is no longer contracted with [facility]. She states they are contracted with [facility], [facility], and [facility]. I sent referral to [facility].
[2024-09-12 17:52] LABS: HCV RNA, PCR <15 NOT DETECTED IU/mL
--- NOTE | 2024-09-12 19:40 | PD.IMPROG ---
Documentation for date of: 09/12/24 Subjective Subjective Interval history: Patient evaluated. Hemoglobin hematocrit 8.5 and 24.8 no signs of any active bleeding Exam Vital Signs Temp Pulse Resp BP Pulse Ox O2 Del Method O2 Flow Rate 97.3 F 63 18 102/64 94 L Room Air 1 09/12/24 16:00 09/12/24 16:00 09/12/24 16:00 09/12/24 16:00 09/12/24 16:00 09/12/24 16:00 09/11/24 03:49 Objective Labs 09/12/24 04:59 09/12/24 04:59 Labs: Laboratory Results - last 24 hr 09/12/24 09/12/24 04:59 11:15 WBC 13.3 H RBC 2.64 L Hgb 8.5 L Hct 24.8 L MCV 94 MCH 32.2 MCHC 34.3 RDW Std Deviation 69.6 H Plt Count 98 L Neut % (Auto) 82 H Lymph % (Auto) 7 L Brewster % (Auto) 11 Eos % (Auto) 0 Baso % (Auto) 0 Neut # (Auto) 10.9 H Lymph # (Auto) 0.9 L Brewster # (Auto) 1.4 H Eos # (Auto) 0.0 Baso # (Auto) 0.0 Immature Gran # (Auto) 0.08 H Absolute Nucleated RBC 0.00 Immature Gran % 1 H Nucleated RBC % 0 PT 28.2 H D INR 2.8 H Sodium 139 Potassium 3.4 Chloride 109 H Carbon Dioxide 17.9 L Anion Gap 12 BUN 58 H Creatinine 3.7 H Estim Creat Clear Calc 17.5 L eGFR 16 L BUN/Creatinine Ratio 16 Glucose 121 H Calculated Osmolality 294 Calcium 7.9 L Corrected Calcium 9.4 Phosphorus 5.5 H Magnesium 2.3 Total Bilirubin 20.8 H* D AST 93 H ALT 48 Alkaline Phosphatase 133 H Total Protein 5.4 L Albumin 2.1 L Globulin 3.3 Albumin/Globulin Ratio 0.6 L Random Vancomycin 13.5 HIV 1&2 Antibody Rapid Non-Reactive Impressions Impression: acute hepatic encephalopathy improving Upper GI bleed due to mucosal oozing of blood due to advanced portal hypertension Acutely decompensated chronic liver disease Continue present conservative management ABG Interpretation ABG results: 08/28/24 08/29/24 09/03/24 22:40 10:05 15:24 ABG pH 7.41 7.50 H ABG pCO2 29 L 33 ABG pO2 69 L 63 L ABG HCO3 18 L 25 ABG O2 Saturation 94 94 ABG Base Excess -6 L 2 VBG pH 7.41 VBG pCO2 47 VBG pO2 30 VBG Base Excess 4 H Assessment & Plan A&P Narrative # Acute upper GI bleed in the form of melena # Acute posthemorrhagic anemia # Acute hepatic encephalopathy # Chronic liver disease with thrombocytopenia abnormal liver function test and coagulopathy secondary to alcohol Plan Agree with the blood transfusion give patient 2 units of PRBC Octreotide infusion Lactulose and Xifaxan Consent will be obtained from the sister who makes that decision for fiberoptic esophagogastroduodenoscopy with possible therapeutic intervention under intravenous moderate sedation Prognosis guarded Thank you for the opportunity to participate in the care of this patient Time Spent With Patient Time: Total time spent is greater than 50% in coordination of care (as documented) at patient's floor/unit and/or counseling patient:
[2024-09-12] MEDS: ALBUTEROL/IPRATROPIUM (Duoneb) RT SOL 3 ML NEBU INH (19:57)
[2024-09-12] MEDS: PROPRANOLOL 10 MG TABLET PO (20:41)
[2024-09-13] VITALS (11 sets, daily range): BP systolic 96–134; BP diastolic 50–81; PULSE 52–104; RESP 12–20; TEMP 36.2–36.6; O2SAT 94–99
[2024-09-13 06:30] LABS: Basophils % (Auto) 0 % (0-2.5); Eosinophils # (Auto) 0.1 Thou/mm3 (0.0-0.5); Eosinophils % (Auto) 1 % (0-10); Hematocrit 25.5 % (41.0-53.0); Hemoglobin 8.8 g/dL (13.5-16.0); Immature Granulocytes % (Auto) 1 % (0-0); Immature Granulocytes Auto 0.06 Thou/mm3 (0.00-0.00); Lymphocytes # (Auto) 1.1 Thou/mm3 (1.0-4.8); Lymphocytes % (Auto) 12 % (10-50); Mean Corpuscular HGB Conc 34.5 g/dl (31.0-37.0); Mean Corpuscular Hemoglobin 32.2 pg (25.0-35.0); Mean Corpuscular Volume 93 fL (80-100); Monocytes # (Auto) 1.5 Thou/mm3 (0.0-0.8); Monocytes % (Auto) 15 % (0-12); Neutrophils # (Auto) 6.9 Thou/mm3 (1.8-7.7); Neutrophils % (Auto) 72 % (37-80); Nucleated Red Blood Cell % 0 /100 WBC (0); RDW Standard Deviation 69.2 fL (35.1-43.9); Red Blood Count 2.73 Miln/mm3 (4.50-5.90); White Blood Count 9.6 Thou/mm3 (3.8-10.6)
[2024-09-13 06:37] LABS: Platelet Count 74 Thou/mm3 (140-440)
[2024-09-13 07:00] LABS: Slide Review Platelets confirmed
[2024-09-13 07:04] LABS: INR 2.7 (0.9-1.3); Prothrombin Time 27.3 Seconds (9.0-12.2)
[2024-09-13 07:10] LABS: Alanine Aminotransferase 65 U/L (10-49); Albumin, Serum 2.1 gm/dL (3.4-4.8); Albumin/Globulin Ratio 0.6 (1.2-2.2); Alkaline Phosphatase 137 U/L (46-116); Anion Gap 13 (7-16); Aspartate Amino Transferase 106 U/L (0-34); BUN/Creatinine Ratio 17 Ratio (12-20); Blood Urea Nitrogen 65 mg/dL (9-23); Calcium 8.2 mg/dL (8.3-10.6); Calcium (Corrected) 9.7 mg/dL (8.5-10.1); Carbon Dioxide 20.8 mMol/L (20.0-31.0); Chloride 105 mMol/L (98-107); Creatinine (Component) 3.8 mg/dL (0.6-1.3); Estimated Creatinine Clearance 17.1 mL/min (>60); Globulin 3.5 gm/dL (2.3-3.5); Glucose 139 mg/dL (74-106); Magnesium 2.3 mg/dL (1.6-2.6); Osmolality,Calculated 298 (275-295); Phosphorous 5.2 mg/dL (2.4-5.1); Sodium 139 mMol/L (136-145); Total Protein 5.6 gm/dL (5.7-8.2); Vancomycin,Random 13.8 mcg/mL; eGFR 16 See Note
--- NOTE | 2024-09-13 07:28 | PC.CC ---
Addendum entered by Emeka Stover RN 09/13/24 17:00: 1654 clinicals sent to [facility] liver transplant fax at [phone]. Addendum entered by Emeka Stover RN 09/13/24 16:59: 1629 called [facility]UR[facility], spoke to transplant co-ordinater Jacqueline and initiated the transfer request. Clinicals given over the phone. She also stated to fax clinicals to [phone]. She stated to call on her direct number at [phone] today until 830pm and tomorrow from 8 to 0830 pm. But during after hours or on Sunday. Call customer service coordinator at [phone]. Addendum entered by Emeka Stover RN 09/13/24 16:28: 1619 called [facility] group at [phone]. The automated message stated to call during business days Sunday to Sunday. Today is Sunday. unable to work on transfer [facility] working on ICU and ED stat transfers. 1033 spoke to Shanell at [facility] financial clearance dept. She stated to work on auth before proceeding with transfer for hospital [facility], or [place], . She stated to get auth from [facility] not [facility]. I informed her that Miriam transfer nurse spoke to Winifred and she stated [facility] is a contracted facility. She stated she wants me to work on auth . Addendum entered by Emeka Stover RN 09/13/24 09:47: 0946 called [facility], spoke to Larisa for update. She stated it's pending MD review. Original Note: 0725 From Miriam's notes from yesterday [facility] declined patient stating he was not a candidate for liver transplant. Patient is needing hepatology. Dr. Coulter states family still wants to pursue transfer and she asked that I reach out to other facilities. I spoke to Winifred with patient's insurance [employer]. Winifred was given an update. Winifred states [employer] is no longer contracted with [facility]. She states they are contracted with [facility], [facility], and [facility]. I sent referral to [facility]. I initiated transfer with [facility] and I faxed over information. Patient information provided. I started the packet.
[2024-09-13 07:33] LABS: Bilirubin,Total 21.9 mg/dL (0.3-1.2)
[2024-09-13] MEDS: PIPER/TAZO INJ 3.375 GM in SODIUM CHLORIDE 0.9% (Popper) 50 ML IV ×2 (08:37→20:25)
[2024-09-13] MEDS: POTASSIUM CHL 10 mEq IVPB 10 MEQ/100 ML BAG 100 MEQ IV ×4 (08:39→14:53)
[2024-09-13] MEDS: PHYTONADIONE INJ 10 MG/ML AMP SC (08:39)
[2024-09-13] MEDS: PANTOPRAZOLE 40 MG TABLET PO (08:40)
[2024-09-13] MEDS: FOLIC ACID 1 MG TABLET PO (08:40)
[2024-09-13] MEDS: FLUCONAZOLE 100 MG TABLET 200 MG PO (08:40)
[2024-09-13] MEDS: THIAMINE 100 MG TABLET PO (08:40)
[2024-09-13] MEDS: PROPRANOLOL 10 MG TABLET PO ×2 (08:40→20:31)
--- NOTE | 2024-09-13 08:52 | ESPR_ITS ---
<Statement entered by Checo Ignacio MD - 09/13/24 17:04> I discussed with and supervised the internal medicine nurse physician involved in the care of this patient. Patient assessment and plan was discussed with entire medicine team, including my attending. I agree with the assessment and plan as documented by internal medicine nurse doctor. Patient care was discussed with my attending physician Dr. Marylin Ignacio, PGY-2 Documentation for date of: 09/13/24 Subjective Subjective Interval history: Patient was seen and examined at bedside this AM. No acute exents overnight. Patient tolerating minimal diet - poor appetite, adequate urine output and mentation is at baseline. Patient endorses resolution of generalized abdominal pain and cramping. Patient had 2 bowel movements in the past 24 hours Will increase lactulose to 30 G p.o. 2 times daily T. bili increased to 21.9 from 20.8 K3. Repleted with KCl 40 mEq IV x 1 Phosphorus 5.2. Held sevelamer due to concern for ileus and constipation Creatinine increased to 3.8 from 3.7. Urine output 900 cc in 24 hours. Bicarb 20.8. Discontinued Bicitra 30 mL p.o. twice daily. Day2 acetylcysteine IV daily to complete on 09/13/2024 for acute on chronic liver failure Day 3 of Phytonadione 10 Mg SC daily for total 3 days to complete on 09/13/2024 HCV RNA PCR quant, EBV, CMV, Hep E pending HIV 1 and 2 negative Blood culture no bacterial growth x 24 hours preliminary Urine culture pending Spoke to x ray technologist, Dr. Joe. He suggested we start patient on Bicitra daily, octreotide infusion and albumin to possibly prolong the time before dialysis is necessary. Also suggested an a.m. cortisol level to monitor adrenal function. Pending possible transfer for tertiary center for higher level of care Exam Vital Signs Temp Pulse Resp BP Pulse Ox O2 Del Method O2 Flow Rate 97.4 F 104 H 14 112/59 L 95 Room Air 1 09/13/24 08:00 09/13/24 08:40 09/13/24 08:00 09/13/24 08:40 09/13/24 08:00 09/13/24 08:00 09/11/24 03:49 Narrative Exam Constitutional Alert, oriented x 3 in no acute distress. Scleral icterus. HEENT Vision grossly intact. Patent nares. Trachea midline Respiratory Chest normal on inspection and clear to aucultation bilaterally Cardiovascular S1 and S2 audible, RRR. No murmurs carotid bruit. No gross JVD. Abdominal Soft, distended, mass palpated in extending from right upper quadrant to right lower quadrant most consistent with hepatomegaly, non -tender to palpation in all quadrants. Bowel sounds present Genitourinary No bladder tenderness, no flank pain. Normal to palpation Musculoskeletal Extremities tone within normal limits. 1+ pitting edema at hips bilaterally- improving Neurological CN II - XII grossly intact. Extremity motor and sensation grossly intact. Skin Warm, dry and intact. No apparent lesions. Psychiatric Patient has good affect, is cooperative Objective Labs 09/14/24 05:28 09/14/24 05:28 Labs: Laboratory Results - last 24 hr 09/12/24 09/13/24 09/13/24 11:15 05:00 05:49 WBC 9.6 RBC 2.73 L Hgb 8.8 L Hct 25.5 L MCV 93 MCH 32.2 MCHC 34.5 RDW Std Deviation 69.2 H Plt Count 74 L D Neut % (Auto) 72 Lymph % (Auto) 12 Cambria % (Auto) 15 H Eos % (Auto) 1 Baso % (Auto) 0 Neut # (Auto) 6.9 Lymph # (Auto) 1.1 Cambria # (Auto) 1.5 H Eos # (Auto) 0.1 Baso # (Auto) 0.0 Immature Gran # (Auto) 0.06 H Absolute Nucleated RBC 0.00 Immature Gran % 1 H Nucleated RBC % 0 PT 27.3 H INR 2.7 H Sodium 139 Potassium 3.0 L Chloride 105 Carbon Dioxide 20.8 Anion Gap 13 BUN 65 H Creatinine 3.8 H Estim Creat Clear Calc 17.1 L eGFR 16 L BUN/Creatinine Ratio 17 Glucose 139 H Calculated Osmolality 298 H Calcium 8.2 L Corrected Calcium 9.7 Phosphorus 5.2 H Magnesium 2.3 Total Bilirubin 21.9 H* D AST 106 H ALT 65 H Alkaline Phosphatase 137 H Total Protein 5.6 L Albumin 2.1 L Globulin 3.5 Albumin/Globulin Ratio 0.6 L Random Vancomycin 13.8 HIV 1&2 Antibody Rapid Non-Reactive Misc Test Result Platelets confirmed ABG Interpretation ABG results: 08/28/24 08/29/24 09/03/24 22:40 10:05 15:24 ABG pH 7.41 7.50 H ABG pCO2 29 L 33 ABG pO2 69 L 63 L ABG HCO3 18 L 25 ABG O2 Saturation 94 94 ABG Base Excess -6 L 2 VBG pH 7.41 VBG pCO2 47 VBG pO2 30 VBG Base Excess 4 H Quality Measures Quality Measures none Advance care planning discussed with:: sibling Assessment & Plan Assessment Current Active Medications: Generic Name Dose Route Start Last Admin Trade Name Freq PRN Reason Stop Dose Admin Acetaminophen 325 mg 08/28/24 20:28 Acetaminophen 325 Mg Tablet PO 09/27/24 20:27 Q6H PRN PAIN SCALE 1-3 (mild Albuterol/Ipratropium 3 ml 08/28/24 20:24 09/12/24 19:57 Albuterol/Ipratropium (Duoneb) Rt Janessa 3 Ml Nebu INH 09/27/24 22:59 3 ml Q4HRRT PRN Administration Wheeze Fluconazole 200 mg 09/11/24 19:15 09/13/24 08:40 Fluconazole 100 Mg Tablet PO 09/18/24 19:14 200 mg QDAY JERSON Administration Folic Acid 1 mg 08/29/24 09:00 09/13/24 08:40 Folic Acid 1 Mg Tablet PO 09/28/24 08:59 1 mg QDAY JERSON Administration Piperacillin Sod/Tazobactam 50 mls @ 12.5 mls/hr 09/12/24 09:00 09/13/24 08:37 Sod 3.375 gm/ Sodium Chloride IV 09/19/24 08:59 12.5 mls/hr Q12HR JERSON Administration Acetylcysteine 11,250 mg/ 256.25 mls @ 256.25 mls/hr 09/12/24 08:51 09/12/24 11:14 Dextrose IV 10/12/24 08:50 256.25 mls/hr .BY DURATION JERSON Administration Acetylcysteine 3,750 mg/ 518.75 mls @ 129.687 mls/hr 09/12/24 08:51 09/12/24 12:57 Dextrose IV 10/12/24 08:50 129.687 mls/hr .BY DURATION JERSON Administration Acetylcysteine 7,500 mg/ 1,037.5 mls @ 64.844 mls/hr 09/12/24 08:51 09/12/24 17:38 Dextrose IV 10/12/24 08:50 64.844 mls/hr .BY DURATION JERSON Administration Vancomycin/Sodium Chloride 100 mls @ 120 mls/hr 09/13/24 10:00 Vancomycin/Ns 500 Mg Ivpb IV 09/13/24 10:49 X1 ONE Potassium Chloride 10 meq in 100 mls @ 100 mls/hr 09/13/24 08:11 09/13/24 08:39 Kcl Ivpb IV 09/13/24 12:10 100 mls/hr Q1H JERSON Administration Lactulose 30 gm 09/13/24 09:00 Lactulose Syrup 20 Gm/30 Ml Udc PO 10/13/24 08:59 BID JERSON Protocol Midodrine 10 mg 09/09/24 08:00 09/12/24 05:17 Midodrine 5 Mg Tablet PO 10/09/24 07:59 10 mg TID JERSON Administration Pantoprazole Sodium 40 mg 09/08/24 09:00 09/13/24 08:40 Pantoprazole 40 Mg Tablet PO 10/08/24 08:59 40 mg QDAY JERSON Administration Pharmacy Consult 1 each 09/11/24 19:15 09/12/24 15:39 Vancomycin Pharmacy To Dose 1 Each Each IV 10/11/24 19:14 Not Given QDAY JERSON Phytonadione 10 mg 09/11/24 19:15 09/13/24 08:39 Phytonadione Inj 10 Mg/Ml Amp SC 09/13/24 19:14 10 mg QDAY JERSON Administration Propranolol HCl 10 mg 09/03/24 21:00 09/13/24 08:40 Propranolol 10 Mg Tablet PO 10/03/24 20:59 10 mg BID JERSON Administration Sevelamer Carbonate 800 mg 09/12/24 12:00 09/12/24 17:29 Sevelamer Carbonate 800 Mg Tablet PO 10/12/24 11:59 800 mg TIDWM JERSON Administration Sodium Chloride 5 ml 08/28/24 17:29 08/28/24 18:47 Sodium Chloride Rt Janessa 0.9% 3 Ml Nebu INH 09/27/24 17:28 3 ml PRN PRN Administration SOLN Thiamine HCl 100 mg 08/28/24 20:45 09/13/24 08:40 Thiamine 100 Mg Tablet PO 09/27/24 20:44 100 mg QDAY JERSON Administration Plan Mr. Stack is a 74-year-old male with past medical history of liver cirrhosis secondary to alcohol use disorder, esophageal varices, ?Asthma/COPD, GERD, anxiety and BPH who was BIBA to [facility] emergency department from home on 08/28/2024 with a chief complaint of altered mental status. Patient will be admitted for workup and management of hepatic encephalopathy and acute blood loss anemia. 1. Acute on chronic liver failure with coagulopathy and thrombocytopenia 2. Portal hypertension with esophageal varices, hypertensive portal gastropathy and ascites 3. Hyperbilirubinemia 4. Hepatitis C Plt 87 Hepatitis C antibody positive [08/31/2024] HCV RNA PCR quant, EBV, CMV, Hep E pending HIV 1 and 2 negative Blood culture no bacterial growth x 24 hours preliminary Urine culture pending EGD completed on 08/29/2024 findings include: Diffuse hypertensive portal gastropathy with mucosal oozing of blood and 1+ esophageal varices not large enough for band ligation. Abdominal ultrasound completed on 09/11/2024 findings include: Gallbladder sludge. Gallbladder wall thickened 0.5 cm. Cirrhosis and mild ascites. Meld?NA score 38 points. 65-66% 90-day mortality. Child?Hernandez class C. 12 points. Life expectancy 1-3 years. Abdominal surgery mortality 82% Madrey score 42. Patient may benefit from steroids Patient complains of generalized abdominal pain and cramping. Patient had 6 bowel movements in the past 24 hours Will decrease lactulose to 25G p.o. 2 times daily and order KUB x-ray T. bili increased to 21.9 from 20.8 Day 2 acetylcysteine IV daily to complete on 09/13/2024 for acute on chronic liver failure Day 3 of Phytonadione 10 Mg SC daily for total 3 days to complete on 09/13/2024 Plan: ? Continue cardiac diet. ? HCV RNA quant, EBV, CMV, Hep E results pending ? Continue Protonix 40 Mg p.o. daily ? Continue fluconazole 200 Mg p.o. daily ? Day 3 of Phytonadione 10 Mg SC daily for total 3 days only 09/13/2024 ? Day 2 acetylcysteine IV daily to complete on 09/13/2024 for acute on chronic liver failure - Transfer initiated to tertiary center ? GI, Dr. Hall onboard and closely following the case. Appreciate recommendations. 5. Acute kidney injury prerenal versus renal 6. Anasarca 7. Proteinuria 8. Non anion gap metabolic acidosis - resolved Baseline CR 0.5. Etiology: AIN, medication side effect, dehydration, hepatorenal syndrome Urine creatinine 216, urine random protein 100, urine sodium <15, urine potassium 50, urine chloride <20. Renal ultrasound completed on 09/08/2024 findings include: No hydronephrosis, no significant cortical thinning. Completed 2 days albumin 25 g IV 3 times daily from [09/08 - 09/10] as per nephrology recommendations Creatinine increased to 3.8 from 3.7. Urine output 900 cc in 24 hours. Bicarb 20.8. Discontinued Bicitra 30 mL p.o. twice daily. Plan: - Started on octreotide 50 mcg IV x 1 followed by octreotide infusion at 50 mcg q. hourly ? Started on albumin 25 g IV daily ? Started on Bicitra 30 mL p.o. daily ? Continue to hold midodrine to 10 Mg p.o. 3 times daily due to concern of urinary retention ? Discontinued Bicitra 30 mL p.o. twice daily. ? Renally dose medication ? Avoid nephrotoxic agents ? Senior Research Fellow, Dr Medrano onboard and closely following the case. Appreciate recommendations 8. Altered mental status secondary to acute metabolic encephalopathy - resolving At baseline patient is conversational and oriented x 3. On admission patient was altered and ANO x 0. On exam patient's pupils reactive to light nonverbal and unresponsive to sternal rub. DDx: Hepatic encephalopathy, medication side effect, TIA CT brain was negative for hemorrhage, mass effect or midline shift Ammonia 57 Patient now oriented x 3. Patient had 2 bowel movements in the past 24 hours Will increase lactulose to 30 G p.o. 2 times daily Plan: ? Aspiration precautions ? Head of bed elevation ? Neurochecks every 4 hourly ? Increased lactulose to 30G p.o. 2 times daily from 25G p.o. 2 times daily ? Continue rifaximin 550 Mg p.o. twice daily ? Continue thiamine p.o. 9. Likely aspiration pneumonia - resolved Patient presented with altered mental status On exam patient has decreased air entry at the bases Chest x-ray showed trace fluid in horizontal fissure right lung. Completed 7 days of Augmentin 1 tab p.o. twice daily from [08/30?09/06] 10. Hypokalemia 11. Hyperphosphatemia - resolving Phosphorus 5.2. Held sevelamer due to concern for ileus and constipation K3. Repleted with KCl 40 mEq IV x 1 12. Acute blood loss anemia secondary to GI bleed?resolved 13. Likely upper GI bleed secondary to esophageal varices?resolved Patient was found unconscious in a pool of coffee-ground emesis On admission patient's Hb 7.6 and he received 2 units PRBC. Post H&H 7.4 Currently Hb 8.8, Hct 25.5 14. Asthma 15. COPD Home medication Trelegy inhaler pCO2 47 Plan: ? DuoNebs as needed 16. Low TSH 17. Low T4 TSH 0.39, T4 0.84 Likely normal based on patient age 16. Goals of care discussion - SNF [09/01/2024] spoke to next of kin, Maggy Romero over the phone at . Briefly updated her on patient's hospital course and asked her to come in today for a goals of care discussion. Ms. Romero agreed for 3 PM and said she would call if any change of plans. At baseline she says that patient is independent and can carry out all his ADLs. He also has home health who visits him 6 days a week for a total of 21 hours. Patient's next of kin did not show up today. Will reach out again tomorrow. [09/02/2024] Spoke to next of kin, Maggy Romero over the phone at . Briefly updated her on patient's hospital course and asked her to come in today for a goals of care discussion. She said she might be able to come in tomorrow for an in person visit. Offered her the options of care home facility versus hospice. She needs more time to think about it. [09/03/2024] Spoke to next of kin, Maggy Romero and her son at bedside. They expressed their wishes for care home. All questions asked were answered and concerns addressed. [09/06/2024] delinquency prevention social worker in contact with family members, patient to be discharged to SNF, pending authorization and voiding trial (09/10/2024) Spoke with Maggy Curielirez on the phone, sister OK with hemodialysis if needed. [09/11/2024] Discussed the current management and prognosis with next of kin, Maggy. Discussed worsening of liver function, kidney injury and high likelihood of deterioration and possible . Also updated her that advertising statistical clerk does not recommend hemodialysis at this point. Also told her that we will try to obtain a hepatology consult. All questions and concerns were addressed and understanding was expressed. Health maintenance: Disposition: Possible transfer to tertiary center for higher level of care. IV antibiotics, IV medication. Diet: Cardiac Lines: pIVs GI Prophylaxis: Pantoprazole Thrombo Prophylaxis: SCDs Code status: FULL CODE Plan of care discussed with Attending Dr. Coulter and PGY2 Dr. Sandee Green MD PGY 1 Attending Provider Attestation/Addendum I, Earline Coulter, DO, attest that I was physically present for the vogel portions of the service and evaluated the patient with the resident and I reviewed and discussed the case with the resident and agree with the resident's findings and plans of care as documented above Patient seen and evaluated this AM. Patient states he is doing well. No acute events overnight. He denies any abdominal pain. Renal function worsening, will continue with bicarb and start octreotide and albumin. Will DC fluconazole due to concern for worsening of LFTs. Patient remains afebrile. He is A&Ox3. Pending final cultures and sensitivities to rule out any active infection. Transfer was unsuccessful as patient is not a candidate for liver transplant per hepatology. Transfer was also declined by [facility] for higher level of care as patient for that reason.
--- NOTE | 2024-09-13 09:41 | PD.NEPHPROG ---
Documentation for date of: 09/13/24 Subjective Subjective Interval history: Chart review done. Mr. Stack is a 74-year-old male with past medical history of liver cirrhosis secondary to alcohol use disorder, esophageal varices, ?Asthma/COPD, GERD, anxiety and BPH presented to [facility] on 08/28/2024 with a chief complaint of altered mental status. per EMS patient was found to be naked and altered. Noted to have dark blood all over the floor. During the hospital course patient had a GI bleed and was seen by Dr. Hall. Also noted to have metabolic encephalopathy-lactulose, rifaximin were initiated. For the last 24 hours his urine output has dropped significantly and renal consultation was requested. CT brain was negative. 09/08/2024 patient currently seen in telemetry.His current medications included folic acid, lactulose, Protonix, propranolol, rifaximin, thiamine.WBC 11.9, hemoglobin 9.5, platelets 131. Sodium 137, potassium 3.3, BUN 43, creatinine 2.9, calcium 9, phosphorus 3.9, total bilirubin 15.2, AST 132, ALT 53, albumin 1.7. Urine showed concentrated urine with blood and bilirubin. Urine sodium less than 15. Talk screen was negative. Hep panel showed AB and AB-. Hep C positive. Renal ultrasound this afternoon showed no hydronephrosis. No cortical thinning consistent with normal kidneys. Head CT on admission was negative. 09/09/2024 patient currently seen in telemetry. Today he seems to be more alert and awake. Last night hospitalist team called-patient complaining of abdominal pain and shortness of breath. Chest x-ray showed dilated bowel loops. Recommended KUB which showed ileus-NG tube was inserted overnight. Patient currently seems to be feeling little bit better. Denies any abdominal pain. Hemoglobin 9, platelets 109, WBC 11, sodium 137, potassium 3.4, BUN 44, creatinine 3.6, GFR 17, bilirubin significantly elevated to 19, AST 113, ALT 48, alk phos 155, albumin 2.1 urine sodium less than 15 urine output 225 mL/day Noted team started the patient on steroids. Patient has a decompensated liver cirrhosis. Hep C positive. Viral load pending. Dr. Hall on the case. Patient currently on albumin, midodrine, normal saline to rule out hepatorenal syndrome. Will continue the same for another 24 hours. If no improvement then HRS 1 diagnosis will be made 09/10/2024 patient currently seen in telemetry. He is having breakfast. Denies any chest pain, shortness of breath. More alert and awake. Made 500 mL urine last night. Blood sugar 109. Blood pressure 100/53, heart rate 69. WBC 12.3, hemoglobin 8.2, platelets 94. Sodium 137, potassium 3.4, bicarbonate 18.8, BUN 56, creatinine 3.9, glucose 133, calcium 9.1, phosphorus 5.1, magnesium 2.6, total bilirubin 20.9, AST 53, ALT 43, alk phos 133, albumin 2.4. He is currently on midodrine, normal saline at 125 mL/h, albumin 3 times daily, rifaximin. 09/13/2024 patient currently seen in telemetry. Labs, medications reviewed. Creatinine still elevated. BUN, bilirubin significantly elevated. Spoke to Dr. Coulter-continue with prn diuretics. Continue with albumin, rifaximin, midodrine. Patient could be going towards hepatorenal syndrome versus ATN. Did talk to the patient that if no improvement in renal function will plan for renal replacement therapy on Sunday. He agreed. Family requested all aggressive measures including dialysis if needed. Noted transfer was denied by [facility]. Review of Systems Review of Systems Narrative Review of Systems: limited-patient today seems to be slightly confused. Denies any chest pain, shortness of breath. Exam Vital Signs Temp Pulse Resp BP Pulse Ox O2 Del Method O2 Flow Rate 36.3 C 104 H 14 112/59 L 95 Room Air 1 09/13/24 08:00 09/13/24 08:40 09/13/24 08:00 09/13/24 08:40 09/13/24 08:00 09/13/24 08:00 09/11/24 03:49 Narrative Exam GENERAL APPEARANCE patient currently seen in telemetry Scleral icterus, jaundice noted NECK: Neck supple, no JVD or bruit CARDIOVASCULAR: Heart regular, no murmurs LUNGS/CHEST: Few rhonchi noted bilaterally ABDOMEN: Distended with good bowel sounds. EXTREMITIES: 1+ edema noted in the lower extremities SKIN: Jaundiced MUSCULOSKELETAL: In bed NEUROLOGICAL : More alert and awake, mild confusion noted Objective Labs 09/14/24 05:28 09/14/24 05:28 Labs: Laboratory Results - last 24 hr 09/12/24 09/13/24 09/13/24 11:15 05:00 05:49 WBC 9.6 RBC 2.73 L Hgb 8.8 L Hct 25.5 L MCV 93 MCH 32.2 MCHC 34.5 RDW Std Deviation 69.2 H Plt Count 74 L D Neut % (Auto) 72 Lymph % (Auto) 12 [place] % (Auto) 15 H Eos % (Auto) 1 Baso % (Auto) 0 Neut # (Auto) 6.9 Lymph # (Auto) 1.1 [place] # (Auto) 1.5 H Eos # (Auto) 0.1 Baso # (Auto) 0.0 Immature Gran # (Auto) 0.06 H Absolute Nucleated RBC 0.00 Immature Gran % 1 H Nucleated RBC % 0 PT 27.3 H INR 2.7 H Sodium 139 Potassium 3.0 L Chloride 105 Carbon Dioxide 20.8 Anion Gap 13 BUN 65 H Creatinine 3.8 H Estim Creat Clear Calc 17.1 L eGFR 16 L BUN/Creatinine Ratio 17 Glucose 139 H Calculated Osmolality 298 H Calcium 8.2 L Corrected Calcium 9.7 Phosphorus 5.2 H Magnesium 2.3 Total Bilirubin 21.9 H* D AST 106 H ALT 65 H Alkaline Phosphatase 137 H Total Protein 5.6 L Albumin 2.1 L Globulin 3.5 Albumin/Globulin Ratio 0.6 L Random Vancomycin 13.8 HIV 1&2 Antibody Rapid Non-Reactive Misc Test Result Platelets confirmed ABG Interpretation ABG results: 08/28/24 08/29/24 09/03/24 22:40 10:05 15:24 ABG pH 7.41 7.50 H ABG pCO2 29 L 33 ABG pO2 69 L 63 L ABG HCO3 18 L 25 ABG O2 Saturation 94 94 ABG Base Excess -6 L 2 VBG pH 7.41 VBG pCO2 47 VBG pO2 30 VBG Base Excess 4 H Assessment & Plan Assessment and plan (1) Acute renal failure (ARF): Status: Acute (2) Acute upper gastrointestinal bleeding: Status: Acute (3) Cirrhosis of liver: Status: Acute (4) Hepatic encephalopathy: Status: Acute (5) Anemia: Status: Acute Additional Assessment & Plan Additional Plan: (1) Acute renal failure (ARF): Status: Acute Assessment and plan: Acute renal failure with worsening renal function and decreased urine output-rule out hepatorenal syndrome versus prerenal azotemia// ATN with fluctuations in blood pressure. Patient was given as needed diuretics. Currently on rifaximin, albumin, midodrine . If no improvement in renal function then the diagnosis will be made for HRS. If HRS type I prognosis remains guarded. Will plan for renal replacement therapy on Sunday if no improvement in azotemia. Care discussed with primary team (2) Acute upper gastrointestinal bleeding: Status: Acute Assessment and plan: Dr. Hall on the case. On PPI (3) Cirrhosis of liver: Status: Acute Assessment and plan: Patient seems to have decompensated liver cirrhosis with GI bleed, varices, hepatic encephalopathy, worsening renal function, thrombocytopenia, anemia. GI on the case. On lactulose, rifaximin patient has a prolonged hospital course for the last 11 days. Patient was on steroids. Patient received couple of doses of NAC. Spoke to Dr. Coulter (4) Hepatic encephalopathy: Status: Acute Assessment and plan: On lactulose (5) Anemia: Status: Acute Assessment and plan: As needed transfusions Plan of care discussed with primary team Prognosis remains poor without liver transplant.
[2024-09-13] MEDS: LACTULOSE SYRUP 20 GM/30 ML UDC 30 GM PO (09:44)
[2024-09-13] MEDS: VANCOMYCIN/NS 500 MG IVPB 100 ML 120 MG IV (10:04)
[2024-09-13] MEDS: WATER ACETYLCYSTEINE IV (10:06)
[2024-09-13] MEDS: ACETYLCYSTEINE IV (10:06)
[2024-09-13] MEDS: DEXTROSE 5% IV (10:06)
[2024-09-13] MEDS: ALBUMIN HUMAN 25% IVPB 25 GM/100 ML BTL IV (13:09)
[2024-09-13] MEDS: OCTREOTIDE ACET INJ 1,000 MCG in SODIUM CHLORIDE 0.9% 100 ML 5.1 MCG IV (13:10)
[2024-09-13] MEDS: OCTREOTIDE ACET INJ 50 mCg/ML VIAL IV (13:10)
--- NOTE | 2024-09-13 18:18 | ESPR_ITS ---
Documentation for date of: 09/13/24 Subjective Subjective Interval history: Patient evaluated Mental status at baseline WBC: 9.6 hemoglobin hematocrit 8.8 and 25.2 BUN/creatinine 65 and 3.8 Making urine Exam Vital Signs Temp Pulse Resp BP Pulse Ox O2 Del Method O2 Flow Rate 97.2 F 66 17 114/71 94 L Room Air 1 09/13/24 16:00 09/13/24 16:00 09/13/24 16:00 09/13/24 16:00 09/13/24 16:00 09/13/24 16:00 09/13/24 16:00 Objective Labs 09/13/24 05:00 09/13/24 05:49 Labs: Laboratory Results - last 24 hr 09/13/24 09/13/24 05:00 05:49 WBC 9.6 RBC 2.73 L Hgb 8.8 L Hct 25.5 L MCV 93 MCH 32.2 MCHC 34.5 RDW Std Deviation 69.2 H Plt Count 74 L D Neut % (Auto) 72 Lymph % (Auto) 12 [place] % (Auto) 15 H Eos % (Auto) 1 Baso % (Auto) 0 Neut # (Auto) 6.9 Lymph # (Auto) 1.1 [place] # (Auto) 1.5 H Eos # (Auto) 0.1 Baso # (Auto) 0.0 Immature Gran # (Auto) 0.06 H Absolute Nucleated RBC 0.00 Immature Gran % 1 H Nucleated RBC % 0 PT 27.3 H INR 2.7 H Sodium 139 Potassium 3.0 L Chloride 105 Carbon Dioxide 20.8 Anion Gap 13 BUN 65 H Creatinine 3.8 H Estim Creat Clear Calc 17.1 L eGFR 16 L BUN/Creatinine Ratio 17 Glucose 139 H Calculated Osmolality 298 H Calcium 8.2 L Corrected Calcium 9.7 Phosphorus 5.2 H Magnesium 2.3 Total Bilirubin 21.9 H* D AST 106 H ALT 65 H Alkaline Phosphatase 137 H Total Protein 5.6 L Albumin 2.1 L Globulin 3.5 Albumin/Globulin Ratio 0.6 L Random Vancomycin 13.8 Misc Test Result Platelets confirmed Impressions Impression: # Upper GI bleed secondary to gastric mucosal oozing of blood in the setting of advanced portal hypertension # Acute decompensation of the underlying chronic liver disease # CONNOR # Hepatic encephalopathy Continue current management ABG Interpretation ABG results: 08/28/24 08/29/2425 22:40 10:05 15:24 ABG pH 7.41 7.50 H ABG pCO2 29 L 33 ABG pO2 69 L 63 L ABG HCO3 18 L 25 ABG O2 Saturation 94 94 ABG Base Excess -6 L 2 VBG pH 7.41 VBG pCO2 47 VBG pO2 30 VBG Base Excess 4 H Assessment & Plan A&P Narrative # Acute upper GI bleed in the form of melena # Acute posthemorrhagic anemia # Acute hepatic encephalopathy # Chronic liver disease with thrombocytopenia abnormal liver function test and coagulopathy secondary to alcohol Plan Agree with the blood transfusion give patient 2 units of PRBC Octreotide infusion Lactulose and Xifaxan Consent will be obtained from the sister who makes that decision for fiberoptic esophagogastroduodenoscopy with possible therapeutic intervention under intravenous moderate sedation Prognosis guarded Thank you for the opportunity to participate in the care of this patient Time Spent With Patient Time: Total time spent is greater than 50% in coordination of care (as documented) at patient's floor/unit and/or counseling patient:
--- NOTE | 2024-09-13 19:43 | PC.NURSE ---
Addendum entered by Kasi Drew RN 09/13/24 19:56: RN able to reorient patient. Will hold off putting bilateral soft mitten restraints for now. Original Note: Pt is pulling on IV's, not cooperating. IV's are wrapped but patient trying to pull them out. RN attempted to reorient patient, but patient continues to touch/remove IV. RN Will call hospitalists for restraints. Dr. Quintero at [phone] said he will put an order in for restraints.
[2024-09-14] VITALS (13 sets, daily range): BP systolic 102–140; BP diastolic 60–86; PULSE 60–80; RESP 15–23; TEMP 36.1–36.6; O2SAT 91–97
--- NOTE | 2024-09-14 02:10 | PC.NURSE ---
Pt put on restraints, pulled out IV 22g RW and attempted to pull out other IV's.
--- NOTE | 2024-09-14 02:45 | PC.NURSE ---
Rn had to switch from soft mitten restraints to bilateral soft wrist restraints due to patient consistently removing mitten restraints.
--- NOTE | 2024-09-14 04:03 | PC.NURSE ---
Patient continues to attempt to remove restraints. RN and TUMBLER MACHINE OPERATOR attempted to reorient patient.
[2024-09-14 05:57] LABS: Basophils % (Auto) 0 % (0-2.5); Eosinophils # (Auto) 0.2 Thou/mm3 (0.0-0.5); Eosinophils % (Auto) 2 % (0-10); Hematocrit 26.7 % (41.0-53.0); Immature Granulocytes % (Auto) 1 % (0-0); Immature Granulocytes Auto 0.04 Thou/mm3 (0.00-0.00); Lymphocytes % (Auto) 11 % (10-50); Mean Corpuscular HGB Conc 33.7 g/dl (31.0-37.0); Mean Corpuscular Hemoglobin 32.1 pg (25.0-35.0); Mean Corpuscular Volume 95 fL (80-100); Monocytes # (Auto) 1.2 Thou/mm3 (0.0-0.8); Monocytes % (Auto) 14 % (0-12); Neutrophils # (Auto) 6.3 Thou/mm3 (1.8-7.7); Neutrophils % (Auto) 72 % (37-80); Nucleated Red Blood Cell % 0 /100 WBC (0); RDW Standard Deviation 69.5 fL (35.1-43.9); White Blood Count 8.8 Thou/mm3 (3.8-10.6)
[2024-09-14 06:15] LABS: Platelet Count 60 Thou/mm3 (140-440)
[2024-09-14 06:23] LABS: INR 2.7 (0.9-1.3); Prothrombin Time 27.1 Seconds (9.0-12.2); Slide Review Platelets confirmed
[2024-09-14 06:31] LABS: Alanine Aminotransferase 72 U/L (10-49); Albumin, Serum 2.3 gm/dL (3.4-4.8); Albumin/Globulin Ratio 0.7 (1.2-2.2); Alkaline Phosphatase 135 U/L (46-116); Anion Gap 12 (7-16); Aspartate Amino Transferase 116 U/L (0-34); BUN/Creatinine Ratio 16 Ratio (12-20); Blood Urea Nitrogen 62 mg/dL (9-23); Calcium 8.6 mg/dL (8.3-10.6); Carbon Dioxide 21.7 mMol/L (20.0-31.0); Chloride 104 mMol/L (98-107); Creatinine (Component) 3.8 mg/dL (0.6-1.3); Estimated Creatinine Clearance 17.1 mL/min (>60); Globulin 3.5 gm/dL (2.3-3.5); Glucose 128 mg/dL (74-106); Magnesium 2.2 mg/dL (1.6-2.6); Osmolality,Calculated 295 (275-295); Phosphorous 5.3 mg/dL (2.4-5.1); Potassium 3.1 mMol/L (3.4-5.1); Sodium 138 mMol/L (136-145); Total Protein 5.8 gm/dL (5.7-8.2); eGFR 16 See Note
--- NOTE | 2024-09-14 07:18 | PC.NURSE ---
Received in hand off report that patient's bilirubin is 24. Night nurse reported was unable to contact MD. I contacted MD at [phone]
[2024-09-14] MEDS: LACTULOSE SYRUP 20 GM/30 ML UDC 30 GM PO ×3 (08:49→21:21)
[2024-09-14] MEDS: PIPER/TAZO INJ 3.375 GM in SODIUM CHLORIDE 0.9% (Popper) 50 ML IV ×2 (08:49→20:40)
[2024-09-14] MEDS: ALBUMIN HUMAN 25% IVPB 25 GM/100 ML BTL IV (08:50)
[2024-09-14] MEDS: POTASSIUM CHL 10 mEq IVPB 10 MEQ/100 ML BAG 100 MEQ IV ×4 (08:51→14:01)
[2024-09-14] MEDS: CITRIC ACID/SODIUM CITR 15 ML UDC (BICITRA) 30 ML PO (08:51)
[2024-09-14] MEDS: FOLIC ACID 1 MG TABLET PO (08:52)
[2024-09-14] MEDS: PANTOPRAZOLE 40 MG TABLET PO (08:52)
[2024-09-14] MEDS: OCTREOTIDE ACET INJ 1,000 MCG in SODIUM CHLORIDE 0.9% 100 ML 5.1 MCG IV (08:52)
[2024-09-14] MEDS: PROPRANOLOL 10 MG TABLET PO ×2 (08:52→20:40)
[2024-09-14] MEDS: THIAMINE 100 MG TABLET PO (08:53)
--- NOTE | 2024-09-14 08:58 | PC.CC ---
Addendum entered by Emeka Stover RN 09/14/24 16:08: 1604 called and spoke to Jacqueline at [facility] for update. She stated she already gave temporary auth number to her financial department but they are not accepting it. Financial department stated they will call [facility] directly tomorrow. Original Note: 0801 I called [facility] transplant navigator Jacqueline gave her the temporary auth number. She stated she will give the temporary auth number to her financial team. I offered to give Shey contact number but she stated her ream has to confirm from their [facility] sources regarding auth. [id number] called Shey with [facility] back and gave info. She gave me temporary auth number which is [id number]. She stated once the system is working she will give permanent auth number. Shey is OK with me giving her contact info to financial dept at [facility] to confirm the auth number. [id number] Coulter, dx is acute on chronic liver failure and ICD code is K72.10 7802 I called [facility] weekend coverage Shey at [phone]. Shey stated [email or web address] is contracted with [facility]. I asked if I can get the auth. Shey stated her system is down at this time but she can give me temporary auth. Once system is running she will give the auth. She asked for dx code. I told her that I will call her back after I find the ICD code. [id number] called [facility], spoke to transplant navigator Jacqueline for update. She stated she is waiting for her financial dept for clearance. I informed her I will call [facility] weekend coverage to see if they can expedite the auth process.
[2024-09-14] MEDS: VANCOMYCIN/NS 500 MG IVPB 100 ML 120 MG IV (10:03)
--- NOTE | 2024-09-14 10:45 | ESPR_ITS ---
<Statement entered by Leno Pa MD - 09/15/24 07:11> Agree with plan and examination finding on the note below. Patient seen and examined at bedside today. Labs and imaging reviewed. Patient care discussed with my attending Dr. Coulter and co-resident Dr. Green. Documentation for date of: 09/14/24 Subjective Subjective Interval history: Patient was seen and examined at bedside this AM. No acute exents overnight. Patient tolerating minimal diet - poor appetite, adequate urine output and mentation is at baseline. Patient endorses resolution of generalized abdominal pain and cramping. Patient had 0 bowel movements in the past 24 hours Will increase lactulose to 30 G p.o. 3 times daily T. bili increased to 24 from 21.9 K3.1 Repleted with KCl 40 mEq IV x 1 Phosphorus 5.3 Creatinine stable at 3.8. Urine output 1750 cc in 24 hours. Bicarb 21.7. On Bicitra 30 mL p.o. daily. HCV RNA PCR quant, EBV, CMV, Hep E pending A.m. cortisol level pending Blood culture no bacterial growth x 48 hours preliminary. Discontinued vancomycin Urine culture pending Pending possible transfer for tertiary center for higher level of care Exam Vital Signs Temp Pulse Resp BP Pulse Ox O2 Del Method O2 Flow Rate 97.6 F 73 18 123/82 94 L Room Air 1 09/14/24 08:00 09/14/24 08:52 09/14/24 08:00 09/14/24 08:52 09/14/24 08:00 09/14/24 08:00 09/13/24 20:00 Narrative Exam Constitutional Alert, oriented x 3 in no acute distress. Scleral icterus. HEENT Vision grossly intact. Patent nares. Trachea midline Respiratory Chest normal on inspection and clear to aucultation bilaterally Cardiovascular S1 and S2 audible, RRR. No murmurs carotid bruit. No gross JVD. Abdominal Soft, distended, mass palpated in extending from right upper quadrant to right lower quadrant most consistent with hepatomegaly, Abdomen distended, non -tender to palpation in all quadrants. Bowel sounds present Genitourinary No bladder tenderness, no flank pain. Normal to palpation Musculoskeletal Extremities tone within normal limits. 1+ pitting edema at hips bilaterally- improving Neurological CN II - XII grossly intact. Extremity motor and sensation grossly intact. Skin Warm, dry and intact. No apparent lesions. Psychiatric Patient has good affect, is cooperative Objective Labs 09/14/24 05:28 09/14/24 05:28 Labs: Laboratory Results - last 24 hr 09/14/24 05:28 WBC 8.8 RBC 2.80 L Hgb 9.0 L Hct 26.7 L MCV 95 MCH 32.1 MCHC 33.7 RDW Std Deviation 69.5 H Plt Count 60 L Neut % (Auto) 72 Lymph % (Auto) 11 [place] % (Auto) 14 H Eos % (Auto) 2 Baso % (Auto) 0 Neut # (Auto) 6.3 Lymph # (Auto) 1.0 [place] # (Auto) 1.2 H Eos # (Auto) 0.2 Baso # (Auto) 0.0 Immature Gran # (Auto) 0.04 H Absolute Nucleated RBC 0.00 Immature Gran % 1 H Nucleated RBC % 0 PT 27.1 H INR 2.7 H Sodium 138 Potassium 3.1 L Chloride 104 Carbon Dioxide 21.7 Anion Gap 12 BUN 62 H Creatinine 3.8 H Estim Creat Clear Calc 17.1 L eGFR 16 L BUN/Creatinine Ratio 16 Glucose 128 H Calculated Osmolality 295 Calcium 8.6 Corrected Calcium 10.0 Phosphorus 5.3 H Magnesium 2.2 Total Bilirubin 24.0 H* D AST 116 H ALT 72 H Alkaline Phosphatase 135 H Total Protein 5.8 Albumin 2.3 L Globulin 3.5 Albumin/Globulin Ratio 0.7 L Random Vancomycin 15.0 Misc Test Result Platelets confirmed ABG Interpretation ABG results: 08/28/24 08/29/24 09/03/24 22:40 10:05 15:24 ABG pH 7.41 7.50 H ABG pCO2 29 L 33 ABG pO2 69 L 63 L ABG HCO3 18 L 25 ABG O2 Saturation 94 94 ABG Base Excess -6 L 2 VBG pH 7.41 VBG pCO2 47 VBG pO2 30 VBG Base Excess 4 H Quality Measures Quality Measures none Advance care planning discussed with:: sibling (Maggy, sister) Assessment & Plan Assessment Current Active Medications: Generic Name Dose Route Start Last Admin Trade Name Freq PRN Reason Stop Dose Admin Acetaminophen 325 mg 08/28/24 20:28 Acetaminophen 325 Mg Tablet PO 09/27/24 20:27 Q6H PRN PAIN SCALE 1-3 (mild Albuterol/Ipratropium 3 ml 08/28/24 20:24 09/12/24 19:57 Albuterol/Ipratropium (Duoneb) Rt Janessa 3 Ml Nebu INH 09/27/24 22:59 3 ml Q4HRRT PRN Administration Wheeze Citric Acid/Sodium Citrate 30 ml 09/14/24 09:00 09/14/24 08:51 Citric Acid/Sodium Citr 15 Ml Udc (Bicitra) PO 10/14/24 08:59 30 ml DAILY JERSON Administration Folic Acid 1 mg 08/29/24 09:00 09/14/24 08:52 Folic Acid 1 Mg Tablet PO 09/28/24 08:59 1 mg QDAY JERSON Administration Piperacillin Sod/Tazobactam 50 mls @ 12.5 mls/hr 09/12/24 09:00 09/14/24 08:49 Sod 3.375 gm/ Sodium Chloride IV 09/19/24 08:59 12.5 mls/hr Q12HR JERSON Administration Octreotide Acetate 1,000 mcg/ 102 mls @ 5.1 mls/hr 09/13/24 11:38 09/14/24 08:52 Sodium Chloride IV 09/18/24 11:38 50 mcg/hr .Q20H JERSON 5.1 mls/hr Administration Protocol 50 MCG/HR Albumin Human 25 gm in 100 mls @ 100 mls/hr 09/13/24 11:39 09/14/24 08:50 Albuminar-25 Ivpb IV 09/15/24 09:59 100 mls/hr QDAY JERSON Administration Vancomycin/Sodium Chloride 100 mls @ 120 mls/hr 09/14/24 10:00 09/14/24 10:03 Vancomycin/Ns 500 Mg Ivpb IV 09/14/24 10:49 120 mls/hr X1 ONE Administration Potassium Chloride 10 meq in 100 mls @ 100 mls/hr 09/14/24 07:58 09/14/24 10:38 Kcl Ivpb IV 09/14/24 11:57 100 mls/hr Q1H JERSON Administration Lactulose 30 gm 09/14/24 08:15 09/14/24 08:49 Lactulose Syrup 20 Gm/30 Ml Udc PO 10/14/24 08:14 30 gm TID JERSON Administration Protocol Midodrine 10 mg 09/09/24 08:00 09/12/24 05:17 Midodrine 5 Mg Tablet PO 10/09/24 07:59 10 mg TID JERSON Administration Pantoprazole Sodium 40 mg 09/08/24 09:00 09/14/24 08:52 Pantoprazole 40 Mg Tablet PO 10/08/24 08:59 40 mg QDAY JERSON Administration Propranolol HCl 10 mg 09/03/24 21:00 09/14/24 08:52 Propranolol 10 Mg Tablet PO 10/03/24 20:59 10 mg BID JERSON Administration Sevelamer Carbonate 800 mg 09/12/24 12:00 09/12/24 17:29 Sevelamer Carbonate 800 Mg Tablet PO 10/12/24 11:59 800 mg TIDWM JERSON Administration Sodium Chloride 5 ml 08/28/24 17:29 08/28/24 18:47 Sodium Chloride Rt Janessa 0.9% 3 Ml Nebu INH 09/27/24 17:28 3 ml PRN PRN Administration SOLN Thiamine HCl 100 mg 08/28/24 20:45 09/14/24 08:53 Thiamine 100 Mg Tablet PO 09/27/24 20:44 100 mg QDAY JERSON Administration Plan Mr. Stack is a 74-year-old male with past medical history of liver cirrhosis secondary to alcohol use disorder, esophageal varices, ?Asthma/COPD, GERD, anxiety and BPH who was BIBA to [facility] emergency department from home on 08/28/2024 with a chief complaint of altered mental status. Patient will be admitted for workup and management of hepatic encephalopathy and acute blood loss anemia. 1. Acute on chronic liver failure with coagulopathy and thrombocytopenia 2. Portal hypertension with esophageal varices, hypertensive portal gastropathy and ascites 3. Hyperbilirubinemia 4. Hepatitis C Plt 60 Hepatitis C antibody positive [08/31/2024] HCV RNA PCR quant, EBV, CMV, Hep E pending HIV 1 and 2 negative Blood culture no bacterial growth x 48 hours preliminary Urine culture pending EGD completed on 08/29/2024 findings include: Diffuse hypertensive portal gastropathy with mucosal oozing of blood and 1+ esophageal varices not large enough for band ligation. Abdominal ultrasound completed on 09/11/2024 findings include: Gallbladder sludge. Gallbladder wall thickened 0.5 cm. Cirrhosis and mild ascites. Meld?NA score 38 points. 65-66% 90-day mortality. Child?Hernandez class C. 12 points. Life expectancy 1-3 years. Abdominal surgery mortality 82% Madrey score 42. Patient may benefit from steroids T. bili increased to 24 from 21.9 Completed acetylcysteine IV daily to complete on 09/13/2024 for acute on chronic liver failure Completed 3 days of Phytonadione 10 Mg SC daily ffrom 09/10/2024 to 09/13/2024 Plan: ? Continue cardiac diet. ? HCV RNA quant, EBV, CMV, Hep E results pending - Type and screen - 1 unit FFP ordered ? Continue Protonix 40 Mg p.o. daily - Transfer initiated to tertiary center ? GI, Dr. Hall onboard and closely following the case. Appreciate recommendations. 5. Acute kidney injury prerenal versus renal 6. Anasarca - resolving 7. Proteinuria 8. Non anion gap metabolic acidosis - resolved Baseline CR 0.5. Etiology: AIN, medication side effect, dehydration, hepatorenal syndrome Urine creatinine 216, urine random protein 100, urine sodium <15, urine potassium 50, urine chloride <20. Renal ultrasound completed on 09/08/2024 findings include: No hydronephrosis, no significant cortical thinning. Completed 2 days albumin 25 g IV 3 times daily from [09/08 - 09/10] as per nephrology recommendations Creatinine stable at 3.8. Urine output 1750 cc in 24 hours. Bicarb 21.7. On Bicitra 30 mL p.o. daily. Plan: - For IR guided placement of dialysis cather tomorrow - For dialysis tomorrow - Hepatitis panel ordered - PPD ordered - Continue octreotide infusion ? Continue albumin 25 g IV daily ? Continue Bicitra 30 mL p.o. daily ? Continue to hold midodrine to 10 Mg p.o. 3 times daily due to concern of urinary retention ? Renally dose medication ? Avoid nephrotoxic agents ? Spa Manager, Dr Medrano onboard and closely following the case. Appreciate recommendations 9. Altered mental status secondary to acute metabolic encephalopathy - resolving At baseline patient is conversational and oriented x 3. On admission patient was altered and ANO x 0. On exam patient's pupils reactive to light nonverbal and unresponsive to sternal rub. DDx: Hepatic encephalopathy, medication side effect, TIA CT brain was negative for hemorrhage, mass effect or midline shift Ammonia 57 Patient now oriented x 3. Patient endorses resolution of generalized abdominal pain and cramping. Patient had 0 bowel movements in the past 24 hours Will increase lactulose to 30 G p.o. 3 times daily Plan: ? Aspiration precautions ? Head of bed elevation ? Neurochecks every 4 hourly ? Increased lactulose to 30G p.o. 3 times daily from 30G p.o. 3 times daily ? Continue rifaximin 550 Mg p.o. twice daily ? Continue thiamine p.o. 10. Likely aspiration pneumonia - resolved Patient presented with altered mental status On exam patient has decreased air entry at the bases Chest x-ray showed trace fluid in horizontal fissure right lung. Completed 7 days of Augmentin 1 tab p.o. twice daily from [08/30?09/06] 11. Hypokalemia 12. Hyperphosphatemia - resolving Phosphorus 5.3. Held sevelamer due to concern for ileus and constipation K3.1 Repleted with KCl 40 mEq IV x 1 13. Acute blood loss anemia secondary to GI bleed?resolved 14. Likely upper GI bleed secondary to esophageal varices?resolved Patient was found unconscious in a pool of coffee-ground emesis On admission patient's Hb 7.6 and he received 2 units PRBC. Post H&H 7.4 Currently Hb 8.8, Hct 25.5 15. Asthma 16. COPD Home medication Trelegy inhaler pCO2 47 Plan: ? DuoNebs as needed 17. Low TSH 18. Low T4 TSH 0.39, T4 0.84 Likely normal based on patient age 17. Goals of care discussion - SNF [09/01/2024] spoke to next of kin, Maggy Romero over the phone at [phone]. Briefly updated her on patient's hospital course and asked her to come in today for a goals of care discussion. Ms. Romero agreed for 3 PM and said she would call if any change of plans. At baseline she says that patient is independent and can carry out all his ADLs. He also has home health who visits him 6 days a week for a total of 21 hours. Patient's next of kin did not show up today. Will reach out again tomorrow. [09/02/2024] Spoke to next of kin, Maggy Romreo over the phone at [phone]. Briefly updated her on patient's hospital course and asked her to come in today for a goals of care discussion. She said she might be able to come in tomorrow for an in person visit. Offered her the options of nursing home facility versus hospice. She needs more time to think about it. [09/03/2024] Spoke to next of kin, Maggy Romero and her son at bedside. They expressed their wishes for nursing home. All questions asked were answered and concerns addressed. [09/06/2024] social security benefits interviewer in contact with family members, patient to be discharged to SNF, pending authorization and voiding trial (09/10/2024) Spoke with Maggy Romero on the phone, sister OK with hemodialysis if needed. [09/11/2024] Discussed the current management and prognosis with next of kin, Maggy. Discussed worsening of liver function, kidney injury and high likelihood of deterioration and possible . Also updated her that brass chaser does not recommend hemodialysis at this point. Also told her that we will try to obtain a hepatology consult. All questions and concerns were addressed and understanding was expressed. Health maintenance: Disposition: Possible transfer to tertiary center for higher level of care. IV antibiotics, IV medication. For dialysis tomorrow Diet: Cardiac Lines: pIVs GI Prophylaxis: Pantoprazole Thrombo Prophylaxis: SCDs Code status: FULL CODE Plan of care discussed with Attending Dr. Coulter and PGY3 Dr. Thierno Green MD PGY 1 Attending Provider Attestation/Addendum I, Earline Coulter, , attest that I was physically present for the vogel portions of the service and evaluated the patient with the resident and I reviewed and discussed the case with the resident and agree with the resident's findings and plans of care as documented above Patient seen and evaluated this AM. Patient appears more confused today and did not have a BM overnight. Patient states that he is doing OK and has no active complaints. however, patient is questioning what the nurse is doing after having been explained that she was placing an IV. Abdomen is distended, but soft and nontender to palpation. He remains jaundiced. Will DC vancomycin as blood cultures remain negative and concern for its nephrotoxicity. Case discussed with nephrology, plan for HD in AM. Will transfuse 1 unit of FFP in anticipation of permacath placement in AM. Will order PPD and hepatitis panel. Will hold 1 unit of FFP if INR remains elevated in AM.
[2024-09-14] MEDS: TUBERCULIN PPD INJ 5 UNIT/0.1 ML DOSE ID (18:17)
--- NOTE | 2024-09-14 18:58 | PD.IMPROG ---
Documentation for date of: 09/14/24 Subjective Subjective Interval history: Patient evaluated hemoglobin hematocrit 9.0 and 28.7 Platelet count 60,000 BUN/creatinine 62 and 3.8 Exam Vital Signs Temp Pulse Resp BP Pulse Ox O2 Del Method O2 Flow Rate 97.9 F 75 20 135/75 H 95 Room Air 1 09/14/24 16:00 09/14/24 18:40 09/14/24 18:40 09/14/24 16:00 09/14/24 18:40 09/14/24 16:00 09/13/24 20:00 Objective Labs 09/14/24 05:28 09/14/24 05:28 Labs: Laboratory Results - last 24 hr 09/14/24 09/14/24 05:28 17:14 WBC 8.8 RBC 2.80 L Hgb 9.0 L Hct 26.7 L MCV 95 MCH 32.1 MCHC 33.7 RDW Std Deviation 69.5 H Plt Count 60 L Neut % (Auto) 72 Lymph % (Auto) 11 [place] % (Auto) 14 H Eos % (Auto) 2 Baso % (Auto) 0 Neut # (Auto) 6.3 Lymph # (Auto) 1.0 [place] # (Auto) 1.2 H Eos # (Auto) 0.2 Baso # (Auto) 0.0 Immature Gran # (Auto) 0.04 H Absolute Nucleated RBC 0.00 Immature Gran % 1 H Nucleated RBC % 0 PT 27.1 H INR 2.7 H Sodium 138 Potassium 3.1 L Chloride 104 Carbon Dioxide 21.7 Anion Gap 12 BUN 62 H Creatinine 3.8 H Estim Creat Clear Calc 17.1 L eGFR 16 L BUN/Creatinine Ratio 16 Glucose 128 H Calculated Osmolality 295 Calcium 8.6 Corrected Calcium 10.0 Phosphorus 5.3 H Magnesium 2.2 Total Bilirubin 24.0 H* D AST 116 H ALT 72 H Alkaline Phosphatase 135 H Total Protein 5.8 Albumin 2.3 L Globulin 3.5 Albumin/Globulin Ratio 0.7 L Random Vancomycin 15.0 Misc Test Result Platelets confirmed Blood Bank Wristband ID Yes Impressions Impression: # Acute regularization of the chronic liver disease # CONNOR # Improving metabolic encephalopathy Continue current management ABG Interpretation ABG results: 08/28/24 08/29/24 09/03/24 22:40 10:05 15:24 ABG pH 7.41 7.50 H ABG pCO2 29 L 33 ABG pO2 69 L 63 L ABG HCO3 18 L 25 ABG O2 Saturation 94 94 ABG Base Excess -6 L 2 VBG pH 7.41 VBG pCO2 47 VBG pO2 30 VBG Base Excess 4 H Assessment & Plan A&P Narrative # Acute upper GI bleed in the form of melena # Acute posthemorrhagic anemia # Acute hepatic encephalopathy # Chronic liver disease with thrombocytopenia abnormal liver function test and coagulopathy secondary to alcohol Plan Agree with the blood transfusion give patient 2 units of PRBC Octreotide infusion Lactulose and Xifaxan Consent will be obtained from the sister who makes that decision for fiberoptic esophagogastroduodenoscopy with possible therapeutic intervention under intravenous moderate sedation Prognosis guarded Thank you for the opportunity to participate in the care of this patient Time Spent With Patient Time: Total time spent is greater than 50% in coordination of care (as documented) at patient's floor/unit and/or counseling patient:
--- NOTE | 2024-09-14 19:45 | PD.NEPHPROG ---
Documentation for date of: 09/14/24 Subjective Subjective Interval history: Chart review done. Mr. Stack is a 74-year-old male with past medical history of liver cirrhosis secondary to alcohol use disorder, esophageal varices, ?Asthma/COPD, GERD, anxiety and BPH presented to [facility] on 08/28/2024 with a chief complaint of altered mental status. per EMS patient was found to be naked and altered. Noted to have dark blood all over the floor. During the hospital course patient had a GI bleed and was seen by Dr. Hall. Also noted to have metabolic encephalopathy-lactulose, rifaximin were initiated. For the last 24 hours his urine output has dropped significantly and renal consultation was requested. CT brain was negative. 09/08/2024 patient currently seen in telemetry.His current medications included folic acid, lactulose, Protonix, propranolol, rifaximin, thiamine.WBC 11.9, hemoglobin 9.5, platelets 131. Sodium 137, potassium 3.3, BUN 43, creatinine 2.9, calcium 9, phosphorus 3.9, total bilirubin 15.2, AST 132, ALT 53, albumin 1.7. Urine showed concentrated urine with blood and bilirubin. Urine sodium less than 15. Talk screen was negative. Hep panel showed AB and AB-. Hep C positive. Renal ultrasound this afternoon showed no hydronephrosis. No cortical thinning consistent with normal kidneys. Head CT on admission was negative. 09/09/2024 patient currently seen in telemetry. Today he seems to be more alert and awake. Last night hospitalist team called-patient complaining of abdominal pain and shortness of breath. Chest x-ray showed dilated bowel loops. Recommended KUB which showed ileus-NG tube was inserted overnight. Patient currently seems to be feeling little bit better. Denies any abdominal pain. Hemoglobin 9, platelets 109, WBC 11, sodium 137, potassium 3.4, BUN 44, creatinine 3.6, GFR 17, bilirubin significantly elevated to 19, AST 113, ALT 48, alk phos 155, albumin 2.1 urine sodium less than 15 urine output 225 mL/day Noted team started the patient on steroids. Patient has a decompensated liver cirrhosis. Hep C positive. Viral load pending. Dr. Hall on the case. Patient currently on albumin, midodrine, normal saline to rule out hepatorenal syndrome. Will continue the same for another 24 hours. If no improvement then HRS 1 diagnosis will be made 09/10/2024 patient currently seen in telemetry. He is having breakfast. Denies any chest pain, shortness of breath. More alert and awake. Made 500 mL urine last night. Blood sugar 109. Blood pressure 100/53, heart rate 69. WBC 12.3, hemoglobin 8.2, platelets 94. Sodium 137, potassium 3.4, bicarbonate 18.8, BUN 56, creatinine 3.9, glucose 133, calcium 9.1, phosphorus 5.1, magnesium 2.6, total bilirubin 20.9, AST 53, ALT 43, alk phos 133, albumin 2.4. He is currently on midodrine, normal saline at 125 mL/h, albumin 3 times daily, rifaximin. 09/14/2024 patient currently seen in telemetry. Labs, medications reviewed. Creatinine still elevated. BUN, bilirubin significantly elevated. Spoke to Dr. Coulter-continue with prn diuretics. Continue with albumin, rifaximin, midodrine, octreotide. Patient seems to be going towards hepatorenal syndrome I versus ATN. Did talk to the patient yesterday that if no improvement in renal function will plan for renal replacement therapy on Sunday. He agreed. Family requested all aggressive measures including dialysis if needed. Noted transfer was denied by [facility]. He seems to be slightly confused today Review of Systems Review of Systems Narrative Review of Systems: Patient noted to be slightly confused today. Arousable. Denies any chest pain, shortness of breath. Exam Vital Signs Temp Pulse Resp BP Pulse Ox O2 Del Method O2 Flow Rate 36.6 C 75 20 135/75 H 95 Room Air 1 09/14/24 16:00 09/14/24 18:40 09/14/24 18:40 09/14/24 16:00 09/14/24 18:40 09/14/24 16:00 09/13/24 20:00 Narrative Exam GENERAL APPEARANCE patient currently seen in telemetry Scleral icterus, jaundice noted NECK: Neck supple, no JVD or bruit CARDIOVASCULAR: Heart regular, no murmurs LUNGS/CHEST: Few rhonchi noted bilaterally ABDOMEN: Distended with good bowel sounds. EXTREMITIES: 1+ edema noted in the lower extremities SKIN: Jaundiced MUSCULOSKELETAL: In bed NEUROLOGICAL : alert and awake, mild confusion noted Objective Labs 09/14/24 05:28 09/14/24 05:28 Labs: Laboratory Results - last 24 hr 09/14/24 09/14/24 05:28 17:14 WBC 8.8 RBC 2.80 L Hgb 9.0 L Hct 26.7 L MCV 95 MCH 32.1 MCHC 33.7 RDW Std Deviation 69.5 H Plt Count 60 L Neut % (Auto) 72 Lymph % (Auto) 11 [place] % (Auto) 14 H Eos % (Auto) 2 Baso % (Auto) 0 Neut # (Auto) 6.3 Lymph # (Auto) 1.0 [place] # (Auto) 1.2 H Eos # (Auto) 0.2 Baso # (Auto) 0.0 Immature Gran # (Auto) 0.04 H Absolute Nucleated RBC 0.00 Immature Gran % 1 H Nucleated RBC % 0 PT 27.1 H INR 2.7 H Sodium 138 Potassium 3.1 L Chloride 104 Carbon Dioxide 21.7 Anion Gap 12 BUN 62 H Creatinine 3.8 H Estim Creat Clear Calc 17.1 L eGFR 16 L BUN/Creatinine Ratio 16 Glucose 128 H Calculated Osmolality 295 Calcium 8.6 Corrected Calcium 10.0 Phosphorus 5.3 H Magnesium 2.2 Total Bilirubin 24.0 H* D AST 116 H ALT 72 H Alkaline Phosphatase 135 H Total Protein 5.8 Albumin 2.3 L Globulin 3.5 Albumin/Globulin Ratio 0.7 L Random Vancomycin 15.0 Misc Test Result Platelets confirmed Blood Type O Positive Antibody Screen POSITIVE Antibody Identification Anti-E Blood Bank Wristband ID Yes ABG Interpretation ABG results: 08/28/24 08/29/24 09/03/24 22:40 10:05 15:24 ABG pH 7.41 7.50 H ABG pCO2 29 L 33 ABG pO2 69 L 63 L ABG HCO3 18 L 25 ABG O2 Saturation 94 94 ABG Base Excess -6 L 2 VBG pH 7.41 VBG pCO2 47 VBG pO2 30 VBG Base Excess 4 H Assessment & Plan Assessment and plan (1) Acute renal failure (ARF): Status: Acute (2) Acute upper gastrointestinal bleeding: Status: Acute (3) Cirrhosis of liver: Status: Acute (4) Hepatic encephalopathy: Status: Acute (5) Anemia: Status: Acute Additional Assessment & Plan Additional Plan: (1) Acute renal failure (ARF): Status: Acute Assessment and plan: Acute renal failure with worsening renal function and decreased urine output-rule out hepatorenal syndrome versus prerenal azotemia// ATN with fluctuations in blood pressure. Patient was given as needed diuretics. Currently on rifaximin, albumin, midodrine, octreotide. suspect patient in HRS. If HRS type I prognosis remains guarded. Will plan for renal replacement therapy on Sunday if no improvement in azotemia. Care discussed with primary team (2) Acute upper gastrointestinal bleeding: Status: Acute Assessment and plan: Dr. Hall on the case. On PPI (3) Cirrhosis of liver: Status: Acute Assessment and plan: Patient seems to have decompensated liver cirrhosis with GI bleed, varices, hepatic encephalopathy, worsening renal function, thrombocytopenia, anemia. GI on the case. On lactulose, rifaximin patient has a prolonged hospital course for the last 11 days. Patient was on steroids. Patient received couple of doses of NAC. Spoke to Dr. Coulter (4) Hepatic encephalopathy: Status: Acute Assessment and plan: On lactulose (5) Anemia: Status: Acute Assessment and plan: As needed transfusions Plan of care discussed with primary team Prognosis remains poor without liver transplant.
[2024-09-15] VITALS (16 sets, daily range): BP systolic 104–129; BP diastolic 53–77; PULSE 45–73; RESP 11–24; TEMP 35.6–36.6; O2SAT 94–100
[2024-09-15] MEDS: LACTULOSE SYRUP 20 GM/30 ML UDC 30 GM PO (05:20)
[2024-09-15] MEDS: OCTREOTIDE ACET INJ 1,000 MCG in SODIUM CHLORIDE 0.9% 100 ML 5.1 MCG IV ×2 (05:49→23:59)
--- NOTE | 2024-09-15 06:05 | PC.NURSE ---
Notify of pt's Blood Sugar. MD Mathews said he will put an order.
[2024-09-15] MEDS: DEXTROSE 50%-WATER INJ 50 ML SYRINGE IV ×2 (06:23→16:55)
[2024-09-15 06:25] LABS: INR 2.4 (0.9-1.3); Partial Thromboplastin Time 63.7 Seconds (22.0-36.0); Prothrombin Time 24.9 Seconds (9.0-12.2)
[2024-09-15 06:55] LABS: Alanine Aminotransferase 72 U/L (10-49); Albumin, Serum 2.6 gm/dL (3.4-4.8); Albumin/Globulin Ratio 0.8 (1.2-2.2); Alkaline Phosphatase 131 U/L (46-116); Anion Gap 12 (7-16); Aspartate Amino Transferase 123 U/L (0-34); BUN/Creatinine Ratio 17 Ratio (12-20); Blood Urea Nitrogen 61 mg/dL (9-23); Calcium 8.9 mg/dL (8.3-10.6); Carbon Dioxide 24.5 mMol/L (20.0-31.0); Chloride 105 mMol/L (98-107); Creatinine (Component) 3.6 mg/dL (0.6-1.3); Globulin 3.3 gm/dL (2.3-3.5); Glucose 77 mg/dL (74-106); Magnesium 2.3 mg/dL (1.6-2.6); Osmolality,Calculated 297 (275-295); Phosphorous 5.5 mg/dL (2.4-5.1); Potassium 3.2 mMol/L (3.4-5.1); Sodium 141 mMol/L (136-145); Total Protein 5.9 gm/dL (5.7-8.2); eGFR 17 See Note
[2024-09-15 06:56] LABS: HCV RNA, PCR Log IU <1.18 NOT DETECTED Log IU/mL
[2024-09-15 06:58] LABS: Osmolality, Urine* 340 mOsm/kg (50-1200)
[2024-09-15 06:59] LABS: Bilirubin,Total 25.7 mg/dL (0.3-1.2)
[2024-09-15] MEDS: ALBUMIN HUMAN 25% IVPB 25 GM/100 ML BTL IV (08:10)
[2024-09-15] MEDS: POTASSIUM CHL 10 mEq IVPB 10 MEQ/100 ML BAG 70 MEQ IV ×4 (08:11→12:26)
--- NOTE | 2024-09-15 08:32 | PC.CC ---
Addendum entered by Francia Henry RN 09/15/24 15:19: Per Dr. Pa transfer has been cancelled Addendum entered by Francia Henry RN 09/15/24 10:45: spoke to Lavell at [facility] who states transfer was cancelled by [facility] doctor, Dr. Lopez. Dr. Lopez declined pt stating that pt is getting same level of care that he would there and patient is not a transplant canidate. Spoke to Dr. Pa who states transfer will be on hold as of now and he will speak to Dr. Coulter and call transfer nurse back Addendum entered by Francia Henry RN 09/15/24 10:27: Haydee called back at this time and states that [facility] is declining patient due to not having an insurance contract with [facility] for transplant services. Addendum entered by Francia Henry RN 09/15/24 10:06: Spoke to Haydee at [facility] financial department who states she will call Shey now all contact information given to Shey. She states she will call back after she has spoke to Shey Original Note: Spoke to Shey at [facility] about authorization she states the outpatient office is now open and RN needs to call Winifred at [phone]. Called Winifred who was not available, voicemail left will follow up.
[2024-09-15] MEDS: CITRIC ACID/SODIUM CITR 15 ML UDC (BICITRA) 30 ML PO (09:12)
[2024-09-15] MEDS: FOLIC ACID 1 MG TABLET PO (09:13)
[2024-09-15] MEDS: PROPRANOLOL 10 MG TABLET PO (09:13)
[2024-09-15] MEDS: PANTOPRAZOLE 40 MG TABLET PO (09:13)
[2024-09-15] MEDS: THIAMINE 100 MG TABLET PO (09:13)
--- NOTE | 2024-09-15 09:21 | ESPR_ITS ---
<Statement entered by Leno Pa MD - 09/16/24 09:05> Agree with plan and examination finding on the note below. Patient seen and examined at bedside today. Labs and imaging reviewed. Patient care discussed with my attending Dr. Coulter and co-resident Dr. Green. Documentation for date of: 09/15/24 Subjective Subjective Interval history: Patient was seen and examined at bedside this AM. Received 1 unit FFP infusion yesterday Patient tolerating minimal diet - poor appetite, adequate urine output and mentation is altered Patient is making non-sensical statements. Patient had 0 bowel movements in the past 48 hours Will switch to lactulose 200g MO TID via rectal tube. T. bili increased to 25.7 from 24 K3.2 Repleted with KCl 40 mEq IV x 1 Phosphorus 5.5 Creatinine decreased to 3.6 from 3.8. Urine output 895 cc in 24 hours. Bicarb 24.5. On Bicitra 30 mL p.o. daily. HCV RNA PCR quant negative EBV, CMV, Hep E, cortisol pending Blood culture no bacterial growth x 48 hours preliminary. Urine culture pending Pending possible transfer for tertiary center for higher level of care Exam Vital Signs Temp Pulse Resp BP Pulse Ox O2 Del Method O2 Flow Rate 96.6 F L 63 19 109/73 99 Nasal Cannula 2 09/15/24 08:00 09/15/24 09:13 09/15/24 08:00 09/15/24 09:13 09/15/24 08:00 09/15/24 08:00 09/15/24 08:00 Narrative Exam Constitutional Alert, oriented x 0 in no acute distress. Scleral icterus. HEENT Vision grossly intact. Patent nares. Trachea midline Respiratory Chest normal on inspection and clear to aucultation bilaterally Cardiovascular S1 and S2 audible, RRR. No murmurs carotid bruit. No gross JVD. Abdominal Soft, distended, mass palpated in extending from right upper quadrant to right lower quadrant most consistent with hepatomegaly, Abdomen distended, non -tender to palpation in all quadrants. Bowel sounds decreased Genitourinary No bladder tenderness, no flank pain. Normal to palpation Musculoskeletal Extremities tone within normal limits. 2+ pitting edema at hips bilaterally Neurological CN II - XII grossly intact. Extremity motor and sensation grossly intact. Skin Warm, dry and intact. No apparent lesions. Psychiatric Patient has good affect, is cooperative Objective Labs 09/16/24 04:40 09/16/24 04:40 Labs: Laboratory Results - last 24 hr 09/08/24 09/10/24 09/14/24 13:00 05:20 17:14 WBC RBC Hgb Hct MCV MCH MCHC RDW Std Deviation Plt Count Neut % (Auto) Lymph % (Auto) Stone % (Auto) Eos % (Auto) Baso % (Auto) Neut # (Auto) Lymph # (Auto) Stone # (Auto) Eos # (Auto) Baso # (Auto) Immature Gran # (Auto) Absolute Nucleated RBC Immature Gran % Nucleated RBC % PT INR APTT Sodium Potassium Chloride Carbon Dioxide Anion Gap BUN Creatinine Estim Creat Clear Calc eGFR BUN/Creatinine Ratio Glucose Calculated Osmolality Calcium Corrected Calcium Phosphorus Magnesium Total Bilirubin AST ALT Alkaline Phosphatase Total Protein Albumin Globulin Albumin/Globulin Ratio Urine Osmolality 340 HCV RNA Quant (PCR) <15 NOT DETECTED HCV RNA (PCR) IU log10 <1.18 NOT DETECTED Misc Test Result Blood Type O Positive Antibody Screen POSITIVE Antibody Identification Anti-E Blood Bank Wristband ID Yes Blood Bank Comment FFP Ready 09/15/24 05:30 WBC 11.4 H RBC 2.79 L Hgb 8.9 L Hct 26.8 L MCV 96 MCH 31.9 MCHC 33.2 RDW Std Deviation 70.0 H Plt Count 59 L Neut % (Auto) 77 Lymph % (Auto) 8 L Stone % (Auto) 12 Eos % (Auto) 2 Baso % (Auto) 0 Neut # (Auto) 8.8 H Lymph # (Auto) 0.9 L Stone # (Auto) 1.4 H Eos # (Auto) 0.2 Baso # (Auto) 0.0 Immature Gran # (Auto) 0.07 H Absolute Nucleated RBC 0.00 Immature Gran % 1 H Nucleated RBC % 0 PT 24.9 H INR 2.4 H APTT 63.7 H Sodium 141 Potassium 3.2 L Chloride 105 Carbon Dioxide 24.5 Anion Gap 12 BUN 61 H Creatinine 3.6 H Estim Creat Clear Calc 18.0 L eGFR 17 L BUN/Creatinine Ratio 17 Glucose 77 D Calculated Osmolality 297 H Calcium 8.9 Corrected Calcium 10.0 Phosphorus 5.5 H Magnesium 2.3 Total Bilirubin 25.7 H* D AST 123 H ALT 72 H Alkaline Phosphatase 131 H Total Protein 5.9 Albumin 2.6 L Globulin 3.3 Albumin/Globulin Ratio 0.8 L Urine Osmolality HCV RNA Quant (PCR) HCV RNA (PCR) IU log10 Misc Test Result Platelets confirmed Blood Type Antibody Screen Antibody Identification Blood Bank Wristband ID Blood Bank Comment ABG Interpretation ABG results: 08/28/24 08/29/24 09/03/24 22:40 10:05 15:24 ABG pH 7.41 7.50 H ABG pCO2 29 L 33 ABG pO2 69 L 63 L ABG HCO3 18 L 25 ABG O2 Saturation 94 94 ABG Base Excess -6 L 2 VBG pH 7.41 VBG pCO2 47 VBG pO2 30 VBG Base Excess 4 H Quality Measures Quality Measures none Advance care planning discussed with:: sibling (Maggy, sister) Assessment & Plan Assessment Current Active Medications: Generic Name Dose Route Start Last Admin Trade Name Freq PRN Reason Stop Dose Admin Acetaminophen 325 mg 08/28/24 20:28 Acetaminophen 325 Mg Tablet PO 09/27/24 20:27 Q6H PRN PAIN SCALE 1-3 (mild Albuterol/Ipratropium 3 ml 08/28/24 20:24 09/12/24 19:57 Albuterol/Ipratropium (Duoneb) Rt Janessa 3 Ml Nebu INH 09/27/24 22:59 3 ml Q4HRRT PRN Administration Wheeze Citric Acid/Sodium Citrate 30 ml 09/14/24 09:00 09/15/24 09:12 Citric Acid/Sodium Citr 15 Ml Udc (Bicitra) PO 10/14/24 08:59 30 ml DAILY JERSON Administration Dextrose 25 ml 09/15/24 06:05 Dextrose 50%-Water Inj 50 Ml Syringe IV 10/15/24 06:04 Q15MIN PRN BG 50-70 responsive npo pt Dextrose 50 ml 09/15/24 06:05 Dextrose 50%-Water Inj 50 Ml Syringe IV 10/15/24 06:04 Q15MIN PRN BG <50 OR BG <70 & pt unresponsive Folic Acid 1 mg 08/29/24 09:00 09/15/24 09:13 Folic Acid 1 Mg Tablet PO 09/28/24 08:59 1 mg QDAY JERSON Administration Glucagon 1 mg 09/15/24 06:05 Glucagon Inj 1 Mg Vial IM Q15MIN PRN BG <70, and no IV access Piperacillin Sod/Tazobactam 50 mls @ 12.5 mls/hr 09/12/24 09:00 09/15/24 00:57 Sod 3.375 gm/ Sodium Chloride IV 09/19/24 08:59 Infused Q12HR JERSON Infusion Octreotide Acetate 1,000 mcg/ 102 mls @ 5.1 mls/hr 09/13/24 11:38 09/15/24 05:49 Sodium Chloride IV 09/18/24 11:38 50 mcg/hr .Q20H JERSON 5.1 mls/hr Administration Protocol 50 MCG/HR Albumin Human 25 gm in 100 mls @ 100 mls/hr 09/13/24 11:39 09/15/24 08:10 Albuminar-25 Ivpb IV 09/15/24 09:59 100 mls/hr QDAY JERSON Administration Potassium Chloride 10 meq in 100 mls @ 100 mls/hr 09/15/24 07:33 09/15/24 08:11 Kcl Ivpb IV 09/15/24 11:32 70 mls/hr Q1H JERSON Administration Lactulose 200 gm 09/15/24 09:00 Lactulose Syrup 10 Gm/15 Ml MO 10/15/24 08:59 TID JERSON Protocol Midodrine 10 mg 09/09/24 08:00 09/12/24 05:17 Midodrine 5 Mg Tablet PO 10/09/24 07:59 10 mg TID JERSON Administration Pantoprazole Sodium 40 mg 09/08/24 09:00 09/15/24 09:13 Pantoprazole 40 Mg Tablet PO 10/08/24 08:59 40 mg QDAY JERSON Administration Propranolol HCl 10 mg 09/03/24 21:00 09/15/24 09:13 Propranolol 10 Mg Tablet PO 10/03/24 20:59 10 mg BID JERSON Administration Sevelamer Carbonate 800 mg 09/12/24 12:00 09/12/24 17:29 Sevelamer Carbonate 800 Mg Tablet PO 10/12/24 11:59 800 mg TIDWM JERSON Administration Sodium Chloride 5 ml 08/28/24 17:29 08/28/24 18:47 Sodium Chloride Rt Janessa 0.9% 3 Ml Nebu INH 09/27/24 17:28 3 ml PRN PRN Administration SOLN Thiamine HCl 100 mg 08/28/24 20:45 09/15/24 09:13 Thiamine 100 Mg Tablet PO 09/27/24 20:44 100 mg QDAY JERSON Administration Plan Mr. Stack is a 74-year-old male with past medical history of liver cirrhosis secondary to alcohol use disorder, esophageal varices, ?Asthma/COPD, GERD, anxiety and BPH who was BIBA to [facility] emergency department from home on 08/28/2024 with a chief complaint of altered mental status. Patient will be admitted for workup and management of hepatic encephalopathy and acute blood loss anemia. 1. Altered mental status secondary to Hepatic encephalopathy At baseline patient is conversational and oriented x 3. On admission patient was altered and ANO x 0. On exam patient's pupils reactive to light nonverbal and unresponsive to sternal rub. DDx: Hepatic encephalopathy, medication side effect, TIA CT brain was negative for hemorrhage, mass effect or midline shift Ammonia 57 Patient is making non-sensical statements. Patient had 0 bowel movements in the past 48 hours Will switch to lactulose 200g MO TID via rectal tube. Plan: ? Aspiration precautions ? Head of bed elevation ? Neurochecks every 4 hourly ? Ammonia level ordered ? Insert rectal tube ? Switch to lactulose 200 g MO twice daily ? Continue rifaximin 550 Mg p.o. twice daily ? Continue thiamine p.o. 2. Acute on chronic liver failure with coagulopathy and thrombocytopenia 3. Portal hypertension with esophageal varices, hypertensive portal gastropathy and ascites 4. Hyperbilirubinemia 5. Hepatitis C Plt 59 Hepatitis C antibody positive [08/31/2024] HCV RNA PCR quant negative EBV, CMV, Hep E pending HIV 1 and 2 negative Blood culture no bacterial growth x 48 hours preliminary Urine culture pending EGD completed on 08/29/2024 findings include: Diffuse hypertensive portal gastropathy with mucosal oozing of blood and 1+ esophageal varices not large enough for band ligation. Abdominal ultrasound completed on 09/11/2024 findings include: Gallbladder sludge. Gallbladder wall thickened 0.5 cm. Cirrhosis and mild ascites. Meld?NA score 38 points. 65-66% 90-day mortality. Child?Hernandez class C. 12 points. Life expectancy 1-3 years. Abdominal surgery mortality 82% Madrey score 42. Patient may benefit from steroids T. bili increased to 25.7 from 24 Completed acetylcysteine IV daily to complete on 09/13/2024 for acute on chronic liver failure Completed 3 days of Phytonadione 10 Mg SC daily ffrom 09/10/2024 to 09/13/2024 Plan: ? Continue cardiac diet. ? EBV, CMV, Hep E results pending ? Continue Protonix 40 Mg p.o. daily - Transfer initiated to tertiary center ? GI, Dr. Hall onboard and closely following the case. Appreciate recommendations. 6. Acute kidney injury prerenal versus renal 7. Anasarca - resolving 8. Proteinuria 9. Non anion gap metabolic acidosis - resolved Baseline CR 0.5. Etiology: AIN, medication side effect, dehydration, hepatorenal syndrome Urine creatinine 216, urine random protein 100, urine sodium <15, urine potassium 50, urine chloride <20. Renal ultrasound completed on 09/08/2024 findings include: No hydronephrosis, no significant cortical thinning. Completed 2 days albumin 25 g IV 3 times daily from [09/08 - 09/10] as per nephrology recommendations Creatinine decreased to 3.6 from 3.8. Urine output 895 cc in 24 hours. Bicarb 24.5. On Bicitra 30 mL p.o. daily. Plan: - Dialysis on hold since patient is still making urine as per nephrology recommendations - PPD read pending - Continue octreotide infusion ? Continue albumin 25 g IV daily ? Continue Bicitra 30 mL p.o. daily ? Continue to hold midodrine to 10 Mg p.o. 3 times daily due to concern of urinary retention ? Renally dose medication ? Avoid nephrotoxic agents ? Framing Mill Operator, Dr Medrano onboard and closely following the case. Appreciate recommendations 10. Likely aspiration pneumonia - resolved Patient presented with altered mental status On exam patient has decreased air entry at the bases Chest x-ray showed trace fluid in horizontal fissure right lung. Completed 7 days of Augmentin 1 tab p.o. twice daily from [08/30?09/06] 11. Hypokalemia 12. Hyperphosphatemia - resolving Phosphorus 5.3. Held sevelamer due to concern for ileus and constipation K3.2 Repleted with KCl 40 mEq IV x 1 13. Acute blood loss anemia secondary to GI bleed?resolved 14. Likely upper GI bleed secondary to esophageal varices?resolved Patient was found unconscious in a pool of coffee-ground emesis On admission patient's Hb 7.6 and he received 2 units PRBC. Post H&H 7.4 Currently Hb 8.9, Hct 26.8 15. Asthma 16. COPD Home medication Trelegy inhaler pCO2 47 Plan: ? DuoNebs as needed 17. Low TSH 18. Low T4 TSH 0.39, T4 0.84 Likely normal based on patient age 17. Goals of care discussion - SNF [09/01/2024] spoke to next of kin, Maggy Romero over the phone at . Briefly updated her on patient's hospital course and asked her to come in today for a goals of care discussion. Ms. Romero agreed for 3 PM and said she would call if any change of plans. At baseline she says that patient is independent and can carry out all his ADLs. He also has home health who visits him 6 days a week for a total of 21 hours. Patient's next of kin did not show up today. Will reach out again tomorrow. [09/02/2024] Spoke to next of kin, Maggy Romero over the phone at . Briefly updated her on patient's hospital course and asked her to come in today for a goals of care discussion. She said she might be able to come in tomorrow for an in person visit. Offered her the options of correction facility versus hospice. She needs more time to think about it. [09/03/2024] Spoke to next of kin, Maggy Romero and her son at bedside. They expressed their wishes for correction. All questions asked were answered and concerns addressed. [09/06/2024] health care social worker in contact with family members, patient to be discharged to SNF, pending authorization and voiding trial (09/10/2024) Spoke with Maggy Romero on the phone, sister OK with hemodialysis if needed. [09/11/2024] Discussed the current management and prognosis with next of kin, Maggy. Discussed worsening of liver function, kidney injury and high likelihood of deterioration and possible . Also updated her that printed circuit board reworker does not recommend hemodialysis at this point. Also told her that we will try to obtain a hepatology consult. All questions and concerns were addressed and understanding was expressed. [09/14/2024] Updated Maggy THOMSON about possible dialysis tomorrow. Updated on poor prognosis and high likelihood of decompensation and possible . All questions and concerns were addressed. Health maintenance: Disposition: Possible transfer to tertiary center for higher level of care. IV antibiotics, IV medication. Diet: Cardiac Lines: pIVs GI Prophylaxis: Pantoprazole Thrombo Prophylaxis: SCDs Code status: FULL CODE Plan of care discussed with Attending Dr. Coulter and PGY3 Dr. Thierno Green MD PGY 1 Attending Provider Attestation/Addendum IEarline, , attest that I was physically present for the vogel portions of the service and evaluated the patient with the resident and I reviewed and discussed the case with the resident and agree with the resident's findings and plans of care as documented above Patient seen and evaluated this AM. Patient is more confused, will open eyes to verbal and tactile stimuli. Verbal responses are selective and tangential. Patient now requiring restraints due to confusion. He denies any pain. Patient has not had a BM overnight. Will increase lactulose and add lactulose enema if unable to take PO. Case discussed with nephrology, will hold off on dialysis as he was able to produce adequate urine overnight. Will cancel permacath placement and second FFP transfusion. Continue with current management otherwise with octreotide, albumin and midodrine.
[2024-09-15] MEDS: PIPER/TAZO INJ 3.375 GM in SODIUM CHLORIDE 0.9% (Popper) 50 ML IV ×2 (10:01→20:32)
[2024-09-15 11:06] LABS: Ammonia 54 uMol/L (11-32)
--- NOTE | 2024-09-15 13:24 | PD.NEPHPROG ---
Documentation for date of: 09/15/24 Subjective Subjective Interval history: Chart review done. Mr. Stack is a 74-year-old male with past medical history of liver cirrhosis secondary to alcohol use disorder, esophageal varices, ?Asthma/COPD, GERD, anxiety and BPH presented to [facility] on 08/28/2024 with a chief complaint of altered mental status. per EMS patient was found to be naked and altered. Noted to have dark blood all over the floor. During the hospital course patient had a GI bleed and was seen by Dr. Hall. Also noted to have metabolic encephalopathy-lactulose, rifaximin were initiated. For the last 24 hours his urine output has dropped significantly and renal consultation was requested. CT brain was negative. 09/08/2024 patient currently seen in telemetry.His current medications included folic acid, lactulose, Protonix, propranolol, rifaximin, thiamine.WBC 11.9, hemoglobin 9.5, platelets 131. Sodium 137, potassium 3.3, BUN 43, creatinine 2.9, calcium 9, phosphorus 3.9, total bilirubin 15.2, AST 132, ALT 53, albumin 1.7. Urine showed concentrated urine with blood and bilirubin. Urine sodium less than 15. Talk screen was negative. Hep panel showed AB and AB-. Hep C positive. Renal ultrasound this afternoon showed no hydronephrosis. No cortical thinning consistent with normal kidneys. Head CT on admission was negative. 09/09/2024 patient currently seen in telemetry. Today he seems to be more alert and awake. Last night hospitalist team called-patient complaining of abdominal pain and shortness of breath. Chest x-ray showed dilated bowel loops. Recommended KUB which showed ileus-NG tube was inserted overnight. Patient currently seems to be feeling little bit better. Denies any abdominal pain. Hemoglobin 9, platelets 109, WBC 11, sodium 137, potassium 3.4, BUN 44, creatinine 3.6, GFR 17, bilirubin significantly elevated to 19, AST 113, ALT 48, alk phos 155, albumin 2.1 urine sodium less than 15 urine output 225 mL/day Noted team started the patient on steroids. Patient has a decompensated liver cirrhosis. Hep C positive. Viral load pending. Dr. Hall on the case. Patient currently on albumin, midodrine, normal saline to rule out hepatorenal syndrome. Will continue the same for another 24 hours. If no improvement then HRS 1 diagnosis will be made 09/10/2024 patient currently seen in telemetry. He is having breakfast. Denies any chest pain, shortness of breath. More alert and awake. Made 500 mL urine last night. Blood sugar 109. Blood pressure 100/53, heart rate 69. WBC 12.3, hemoglobin 8.2, platelets 94. Sodium 137, potassium 3.4, bicarbonate 18.8, BUN 56, creatinine 3.9, glucose 133, calcium 9.1, phosphorus 5.1, magnesium 2.6, total bilirubin 20.9, AST 53, ALT 43, alk phos 133, albumin 2.4. He is currently on midodrine, normal saline at 125 mL/h, albumin 3 times daily, rifaximin. 09/14/2024 patient currently seen in telemetry. Labs, medications reviewed. Creatinine still elevated. BUN, bilirubin significantly elevated. Spoke to Dr. Coulter-continue with prn diuretics. Continue with albumin, rifaximin, midodrine, octreotide. Patient seems to be going towards hepatorenal syndrome I versus ATN. Did talk to the patient yesterday that if no improvement in renal function will plan for renal replacement therapy on Sunday. He agreed. Family requested all aggressive measures including dialysis if needed. Noted transfer was denied by [facility]. He seems to be slightly confused today. 09/15/2024 Patient currently seen in telemetry. He seems to be slightly awake and alert today. Patient made 1600 ml urine. Creatinine stable at 3.6. Hold off on dialysis today. Spoke to Dr. Coulter-gentle IV fluids will be given today. Patient in the negative balance. Clinically looks rather dehydrated. Medications and labs reviewed. Review of Systems Review of Systems Narrative Review of Systems: Patient noted to be more alert although tad confused today. Denies any chest pain, shortness of breath. Exam Vital Signs Temp Pulse Resp BP Pulse Ox O2 Del Method O2 Flow Rate 35.6 C L 57 L 14 108/60 99 Nasal Cannula 2 09/15/24 11:23 09/15/24 11:23 09/15/24 11:23 09/15/24 11:23 09/15/24 08:00 09/15/24 08:00 09/15/24 08:00 Narrative Exam GENERAL APPEARANCE patient currently seen in telemetry Scleral icterus, jaundice noted. Dry mucosa NECK: Neck supple, no JVD or bruit CARDIOVASCULAR: Heart regular, no murmurs LUNGS/CHEST: Few rhonchi noted bilaterally ABDOMEN: Distended with good bowel sounds. EXTREMITIES: no edema noted in the lower extremities SKIN: Jaundiced MUSCULOSKELETAL: In bed NEUROLOGICAL : alert and awake, mild confusion noted Objective Labs 09/16/24 04:40 09/15/24 05:30 Labs: Laboratory Results - last 24 hr 09/08/24 09/10/24 09/14/24 13:00 05:20 17:14 WBC RBC Hgb Hct MCV MCH MCHC RDW Std Deviation Plt Count Neut % (Auto) Lymph % (Auto) [place] % (Auto) Eos % (Auto) Baso % (Auto) Neut # (Auto) Lymph # (Auto) [place] # (Auto) Eos # (Auto) Baso # (Auto) Immature Gran # (Auto) Absolute Nucleated RBC Immature Gran % Nucleated RBC % PT INR APTT Sodium Potassium Chloride Carbon Dioxide Anion Gap BUN Creatinine Estim Creat Clear Calc eGFR BUN/Creatinine Ratio Glucose Calculated Osmolality Calcium Corrected Calcium Phosphorus Magnesium Total Bilirubin AST ALT Alkaline Phosphatase Ammonia Total Protein Albumin Globulin Albumin/Globulin Ratio Urine Osmolality 340 HCV RNA Quant (PCR) <15 NOT DETECTED HCV RNA (PCR) IU log10 <1.18 NOT DETECTED Misc Test Result Blood Type O Positive Antibody Screen POSITIVE Antibody Identification Anti-E Blood Bank Wristband ID Yes Blood Bank Comment FFP Ready 09/15/24 09/15/24 05:30 10:34 WBC 11.4 H RBC 2.79 L Hgb 8.9 L Hct 26.8 L MCV 96 MCH 31.9 MCHC 33.2 RDW Std Deviation 70.0 H Plt Count 59 L Neut % (Auto) 77 Lymph % (Auto) 8 L [place] % (Auto) 12 Eos % (Auto) 2 Baso % (Auto) 0 Neut # (Auto) 8.8 H Lymph # (Auto) 0.9 L [place] # (Auto) 1.4 H Eos # (Auto) 0.2 Baso # (Auto) 0.0 Immature Gran # (Auto) 0.07 H Absolute Nucleated RBC 0.00 Immature Gran % 1 H Nucleated RBC % 0 PT 24.9 H INR 2.4 H APTT 63.7 H Sodium 141 Potassium 3.2 L Chloride 105 Carbon Dioxide 24.5 Anion Gap 12 BUN 61 H Creatinine 3.6 H Estim Creat Clear Calc 18.0 L eGFR 17 L BUN/Creatinine Ratio 17 Glucose 77 D Calculated Osmolality 297 H Calcium 8.9 Corrected Calcium 10.0 Phosphorus 5.5 H Magnesium 2.3 Total Bilirubin 25.7 H* D AST 123 H ALT 72 H Alkaline Phosphatase 131 H Ammonia 54 H Total Protein 5.9 Albumin 2.6 L Globulin 3.3 Albumin/Globulin Ratio 0.8 L Urine Osmolality HCV RNA Quant (PCR) HCV RNA (PCR) IU log10 Misc Test Result Platelets confirmed Blood Type Antibody Screen Antibody Identification Blood Bank Wristband ID Blood Bank Comment ABG Interpretation ABG results: 08/28/24 08/29/24 09/03/24 22:40 10:05 15:24 ABG pH 7.41 7.50 H ABG pCO2 29 L 33 ABG pO2 69 L 63 L ABG HCO3 18 L 25 ABG O2 Saturation 94 94 ABG Base Excess -6 L 2 VBG pH 7.41 VBG pCO2 47 VBG pO2 30 VBG Base Excess 4 H Assessment & Plan Assessment and plan (1) Acute renal failure (ARF): Status: Acute (2) Acute upper gastrointestinal bleeding: Status: Acute (3) Cirrhosis of liver: Status: Acute (4) Hepatic encephalopathy: Status: Acute (5) Anemia: Status: Acute Additional Assessment & Plan Additional Plan: (1) Acute renal failure (ARF): Status: Acute Assessment and plan: Acute renal failure with worsening renal function and decreased urine output-rule out hepatorenal syndrome versus prerenal azotemia// ATN with fluctuations in blood pressure. Patient was given as needed diuretics. Currently on rifaximin, albumin, midodrine, octreotide. Today he seems to be slightly alert and awake. Spoke to primary team-hold off on dialysis today. Creatinine stable at 3.6. Gentle IV fluids will be given as patient clinically looks rather dehydrated. Continue with albumin. (2) Acute upper gastrointestinal bleeding: Status: Acute Assessment and plan: Dr. Hall on the case. On PPI (3) Cirrhosis of liver: Status: Acute Assessment and plan: Patient seems to have decompensated liver cirrhosis with GI bleed, varices, hepatic encephalopathy, worsening renal function, thrombocytopenia, anemia. GI on the case. On lactulose, rifaximin patient has a prolonged hospital course for the last 11 days. Patient was on steroids. Patient received couple of doses of NAC. Spoke to Dr. Coulter (4) Hepatic encephalopathy: Status: Acute Assessment and plan: On lactulose (5) Anemia: Status: Acute Assessment and plan: As needed transfusions Quality - progress note Quality Measures Quality Measures: VTE prophylaxis Reason for Continued Stay Reason for Continued Stay: further monitoring
[2024-09-15] MEDS: LACTULOSE SYRUP 20 GM/30 ML UDC PO ×2 (13:47→21:01)
--- NOTE | 2024-09-15 17:01 | PC.NURSE ---
patient blood sugar-62 PATIENT IS VERY POOR APPETITE NOT WANTING TO EAT, CALLED DR. GOLDBERG AND MADE AWARE, NEW ORDER TO GIVE D50W 50MG IV XI NOW.
--- NOTE | 2024-09-15 19:50 | PD.IMPROG ---
Documentation for date of: 09/15/24 Subjective Subjective Interval history: Patient evaluated hemoglobin hematocrit 9.0 and 26.7 BUN/creatinine 61 and 3.6 Total bilirubin went from 24.0-25.7 Patient's somewhat confused and the lactulose has been increased as he is not having very many bowel movements Hep C RNA by PCR is undetectable Exam Vital Signs Temp Pulse Resp BP Pulse Ox O2 Del Method O2 Flow Rate 96.6 F L 54 L 18 111/77 97 Nasal Cannula 2 09/15/24 16:00 09/15/24 16:00 09/15/24 16:00 09/15/24 16:00 09/15/24 16:00 09/15/24 16:00 09/15/24 16:00 Objective Labs 09/14/24 05:28 09/15/24 05:30 Labs: Laboratory Results - last 24 hr 09/08/24 09/10/24 09/14/24 13:00 05:20 17:14 WBC RBC Hgb Hct MCV MCH MCHC RDW Std Deviation Plt Count Neut % (Auto) Lymph % (Auto) [place] % (Auto) Eos % (Auto) Baso % (Auto) Neut # (Auto) Lymph # (Auto) [place] # (Auto) Eos # (Auto) Baso # (Auto) Immature Gran # (Auto) Absolute Nucleated RBC Immature Gran % Nucleated RBC % PT INR APTT Sodium Potassium Chloride Carbon Dioxide Anion Gap BUN Creatinine Estim Creat Clear Calc eGFR BUN/Creatinine Ratio Glucose Calculated Osmolality Calcium Corrected Calcium Phosphorus Magnesium Total Bilirubin AST ALT Alkaline Phosphatase Ammonia Total Protein Albumin Globulin Albumin/Globulin Ratio Urine Osmolality 340 HCV RNA Quant (PCR) <15 NOT DETECTED HCV RNA (PCR) IU log10 <1.18 NOT DETECTED Misc Test Result Blood Type O Positive Antibody Screen POSITIVE Antibody Identification Anti-E Blood Bank Wristband ID Yes Blood Bank Comment FFP Ready 09/15/24 09/15/24 05:30 10:34 WBC Cancelled RBC Cancelled Hgb Cancelled Hct Cancelled MCV Cancelled MCH Cancelled MCHC Cancelled RDW Std Deviation Cancelled Plt Count Cancelled Neut % (Auto) Cancelled Lymph % (Auto) Cancelled [place] % (Auto) Cancelled Eos % (Auto) Cancelled Baso % (Auto) Cancelled Neut # (Auto) Cancelled Lymph # (Auto) Cancelled [place] # (Auto) Cancelled Eos # (Auto) Cancelled Baso # (Auto) Cancelled Immature Gran # (Auto) Cancelled Absolute Nucleated RBC Cancelled Immature Gran % Cancelled Nucleated RBC % Cancelled PT 24.9 H INR 2.4 H APTT 63.7 H Sodium 141 Potassium 3.2 L Chloride 105 Carbon Dioxide 24.5 Anion Gap 12 BUN 61 H Creatinine 3.6 H Estim Creat Clear Calc 18.0 L eGFR 17 L BUN/Creatinine Ratio 17 Glucose 77 D Calculated Osmolality 297 H Calcium 8.9 Corrected Calcium 10.0 Phosphorus 5.5 H Magnesium 2.3 Total Bilirubin 25.7 H* D AST 123 H ALT 72 H Alkaline Phosphatase 131 H Ammonia 54 H Total Protein 5.9 Albumin 2.6 L Globulin 3.3 Albumin/Globulin Ratio 0.8 L Urine Osmolality HCV RNA Quant (PCR) HCV RNA (PCR) IU log10 Misc Test Result Cancelled Blood Type Antibody Screen Antibody Identification Blood Bank Wristband ID Blood Bank Comment Impressions Impression: # hepatic encephalopathy agree with increasing lactulose # Upper GI bleed secondary to mucosal oozing of blood hemoglobin hematocrit relatively stable # CONNOR continue current management ABG Interpretation ABG results: 08/28/24 08/29/24 09/03/24 22:40 10:05 15:24 ABG pH 7.41 7.50 H ABG pCO2 29 L 33 ABG pO2 69 L 63 L ABG HCO3 18 L 25 ABG O2 Saturation 94 94 ABG Base Excess -6 L 2 VBG pH 7.41 VBG pCO2 47 VBG pO2 30 VBG Base Excess 4 H Assessment & Plan A&P Narrative # Acute upper GI bleed in the form of melena # Acute posthemorrhagic anemia # Acute hepatic encephalopathy # Chronic liver disease with thrombocytopenia abnormal liver function test and coagulopathy secondary to alcohol Plan Agree with the blood transfusion give patient 2 units of PRBC Octreotide infusion Lactulose and Xifaxan Consent will be obtained from the sister who makes that decision for fiberoptic esophagogastroduodenoscopy with possible therapeutic intervention under intravenous moderate sedation Prognosis guarded Thank you for the opportunity to participate in the care of this patient Time Spent With Patient Time: Total time spent is greater than 50% in coordination of care (as documented) at patient's floor/unit and/or counseling patient:
[2024-09-15 22:07] LABS: EBV EBNA Ab (IgG) >600.00 U/mL; EBV VCA Ab (IgG) >750.00 U/mL; EBV VCA Ab (IgM) <36.00 U/mL
[2024-09-15] MEDS: DEXTROSE 50%-WATER INJ 50 ML SYRINGE 25 ML IV (23:58)
[2024-09-16] VITALS (100 sets, daily range): BP systolic 65–179; BP diastolic 41–96; PULSE 42–169; RESP 1–36; TEMP 35.9–37.1; O2SAT 92–100; BMI 24.5
--- NOTE | 2024-09-16 | XR_ITS ---
Examination: CT abdomen and pelvis without contrast. Coronal 3-D reconstructions. Sagittal 2-D reconstructions. Exam date and time: September 16, 2024 1238 hrs. Indications: Onset distended abdomen today CTDI: vol (mGy): 19.7 DLP: (mGycm): 1524 Technique: Axial images of the abdomen have been obtained, 3 mm slice thickness Intravenous contrast material has not been administered. Low dose protocols were performed. One or more of the following dose reduction techniques were used; automated exposure control, adjustment of the mA and/or KV according to patient size, use of iterative reconstruction technique. Findings: Pneumonia right base with small right pleural effusion Cirrhosis, liver nodular in contour and decreased in size Abundant ascites Spleen is not enlarged Suspicious for esophageal varices Portosystemic collateral vessels medial to the spleen Pancreas is not enlarged Subcentimeter bilateral renal calculi, no hydronephrosis Aorta normal size No bowel obstruction Normal appendix Colonic diverticulosis Rectal tube Urinary bladder is contracted around a Garcia catheter Prostate calcifications, 5 mm, 4 mm which may be in the prostatic urethra Severe osteopenia Again noted severe compression fracture T12, identified on the July 10, 2024 exam Impression: Pneumonia right base Cirrhosis Suspicious for esophageal varices Prominent ascites 5 mm 4 mm calculi which may be in the prostatic urethra, clinical correlation advised
[2024-09-16] MEDS: DEXTROSE 50%-WATER INJ 50 ML SYRINGE 25 ML IV (05:12)
[2024-09-16 05:15] LABS: Basophils % (Auto) 0 % (0-2.5); Eosinophils # (Auto) 0.1 Thou/mm3 (0.0-0.5); Eosinophils % (Auto) 1 % (0-10); Hematocrit 26.2 % (41.0-53.0); Immature Granulocytes % (Auto) 1 % (0-0); Immature Granulocytes Auto 0.17 Thou/mm3 (0.00-0.00); Lymphocytes % (Auto) 6 % (10-50); Mean Corpuscular HGB Conc 33.2 g/dl (31.0-37.0); Mean Corpuscular Hemoglobin 32.5 pg (25.0-35.0); Mean Corpuscular Volume 98 fL (80-100); Monocytes # (Auto) 1.9 Thou/mm3 (0.0-0.8); Monocytes % (Auto) 11 % (0-12); Neutrophils # (Auto) 13.6 Thou/mm3 (1.8-7.7); Neutrophils % (Auto) 81 % (37-80); Nucleated Red Blood Cell % 0 /100 WBC (0); Platelet Count 81 Thou/mm3 (140-440); RDW Standard Deviation 72.2 fL (35.1-43.9); Red Blood Count 2.68 Miln/mm3 (4.50-5.90); White Blood Count 16.8 Thou/mm3 (3.8-10.6)
[2024-09-16 05:16] LABS: Hemoglobin 8.7 g/dL (13.5-16.0)
[2024-09-16 05:56] LABS: Alanine Aminotransferase 66 U/L (10-49); Albumin, Serum 2.6 gm/dL (3.4-4.8); Albumin/Globulin Ratio 0.8 (1.2-2.2); Anion Gap 11 (7-16); Aspartate Amino Transferase 117 U/L (0-34); BUN/Creatinine Ratio 20 Ratio (12-20); Blood Urea Nitrogen 61 mg/dL (9-23); Calcium 8.9 mg/dL (8.3-10.6); Chloride 108 mMol/L (98-107); Creatinine (Component) 3.1 mg/dL (0.6-1.3); Estimated Creatinine Clearance 20.9 mL/min (>60); Globulin 3.1 gm/dL (2.3-3.5); Glucose 70 mg/dL (74-106); Magnesium 2.4 mg/dL (1.6-2.6); Osmolality,Calculated 296 (275-295); Potassium 3.9 mMol/L (3.4-5.1); Sodium 141 mMol/L (136-145); Total Protein 5.7 gm/dL (5.7-8.2); eGFR 20 See Note
[2024-09-16 06:14] LABS: Alkaline Phosphatase 119 U/L (46-116)
[2024-09-16] MEDS: LACTULOSE SYRUP 20 GM/30 ML UDC PR (06:24)
[2024-09-16 06:32] LABS: EBV Ab Interpretation PAST
[2024-09-16 06:43] LABS: Bilirubin,Total 25.2 mg/dL (0.3-1.2)
[2024-09-16 09:46] LABS: Prothrombin Time > 63.0 Seconds (9.0-12.2)
[2024-09-16] MEDS: SODIUM CHLORIDE 0.9% 1000 ML 1,000 ML 999 ML IV (09:52)
[2024-09-16] MEDS: PIPER/TAZO INJ 3.375 GM in SODIUM CHLORIDE 0.9% (Popper) 50 ML IV ×2 (09:52→20:03)
[2024-09-16] MEDS: LACTULOSE SYRUP 10 GM/15 ML 200 GM PR (10:17)
--- NOTE | 2024-09-16 11:00 | PC.SS ---
Update: Transfer for patient has been cancelled. Plan is for medical team to discuss comfort care with patient's sister.
[2024-09-16] MEDS: PHYTONADIONE INJ 10 MG/ML AMP SC (11:01)
--- NOTE | 2024-09-16 11:01 | PC.SS ---
[employer] SUPERVISOR present as residents Dr. Green and Dr. Ignacio met with patient's sister, Maggy; to provide overview and prognosis on the patient's condition. Patient's sister requesting that medical team provide update to patient's nephew, Ander. Following with medical team and nephew, discussion between the patient's sister (Maggy) and patient's nephew (Ander) will address hospice option. If hospice decided, plan will be to transition patient to SNF w/hospice. H[employer] SUPERVISOR informed patient's sister that transition to SNF with hospice dependent on hospice bed availability. Medical team to update H[employer]PER[employer]OR.
[2024-09-16 11:06] LABS: Base Excess -5 (-3-3); HCO3 22 mEq/L (20-26); Inspired O2, VO2 Liters 3 L/min; O2 Saturation 96 % (91-98); PCO2 48 mmHg (32.0-48.0); PO2 88 mmHg (83-108); pH, Arterial 7.27 (7.35-7.45)
[2024-09-16 11:07] LABS: Allen Test Performed/OK; Puncture Site Right Radial
--- NOTE | 2024-09-16 11:20 | XR_ITS ---
Examination: CT brain head without contrast. 2-D sagittal coronal reconstructions Date and time of exam:September 16, 2024 1204 hrs. Comparison August 28, 2024 Indications: Onset altered mental status today CTDI: vol (mGy):53.1 DLP: (mGycm):1083 Technique: Multiple CT axial sections of the brain have been obtained, 5 mm slice thickness. Contrast has not been administered. 2-D sagittal, coronal reconstructions have been obtained Low dose protocols were performed. One or more of the following dose reduction techniques were used; automated exposure control, adjustment of the mA and/or KV according to patient size, use of iterative reconstruction technique. Findings: No significant ventricular enlargement. Intra-axial or extra-axial hemorrhage density is not seen. No mass effect or midline shift Basal cisterns are not remarkable. Fourth ventricle is midline. Cranial vault intact. Impression: Negative for acute hemorrhage, mass effect or midline shift Advise clinical correlation follow-up accordingly
--- NOTE | 2024-09-16 11:28 | ESPR_ITS ---
<Statement entered by Checo Ignacio MD - 09/17/24 05:56> GOC was held with patient's sister, later in the day patient was upgraded to ICU. I discussed with and supervised the legal summer intern physician involved in the care of this patient. Patient assessment and plan was discussed with entire medicine team, including my attending. I agree with the assessment and plan as documented by legal summer intern doctor. Patient care was discussed with my attending physician Dr. Marylin Ignacio, PGY-2 Documentation for date of: 09/16/24 Subjective Subjective Interval history: Patient was seen and examined at bedside this AM. Overnight patient became more altered and unable to tolerate p.o. meds. Patient not tolerating anything p.o., urine output 750 cc / 24 hours and mentation is altered Patient is grunting and responsive to pain only. Patient had 1 bowel movements in the past 48 hours Will switch to lactulose 200g VA TID via rectal tube. T. bili decreased to 25.2 from 25.7 K3.9 Phosphorus 6. Sevelamer 800 Mg p.o. x 1 Creatinine decreased to 3.1 from 3.6 Bicarb 24.5. On Bicitra 30 mL p.o. daily. PT >63, INR unrecordable. Will order 1 unit FFP pH 7.2, pCO2 40, pO2 80, HCO3 22. Will switch Bicitra to IV bicarbonate EBV IgG positive, IgM negative HCV RNA PCR quant negative CMV, Hep E, cortisol pending Blood culture no bacterial growth x 48 hours preliminary. Urine culture pending Patient will be upgraded to ICU for one-to-one nursing care and acidosis Had goals of care discussion with patient's sister/NOK, Maggy. bank worker Manuel and PGY 2 Dr. Ignacio were present at bedside. Discussed ongoing treatment measures as well as poor prognosis of patient and high possibility of deterioration and possible . NOK/primary decision maker wishes to discuss with his son before making any decisions about changing CODE STATUS or possibility of hospice/palliative care. Discussed with patient's nephew, Simon Romero over the phone at [phone] about patient's hospital course, current treatment and poor prognosis with high possibility of deterioration and possible . All questions and concerns were addressed. She recommended that we reach out to patient's daughter, Ca Stack for further instructions about CODE STATUS/comfort for palliative care. He does not have a number to reach her at but suggested we involve social media analyst. public services librarian are already involved and on the case. Exam Vital Signs Temp Pulse Resp BP Pulse Ox O2 Del Method O2 Flow Rate 97.1 F 56 L 14 122/65 97 Nasal Cannula 3 09/16/24 08:00 09/16/24 08:00 09/16/24 08:00 09/16/24 08:00 09/16/24 08:00 09/16/24 08:00 09/16/24 08:00 Narrative Exam Constitutional Alert, oriented x 0 in no acute distress. Scleral icterus. HEENT Vision grossly intact. Patent nares. Trachea midline Respiratory Chest normal on inspection and decreased air entry with crackles at bases bilaterally Cardiovascular S1 and S2 audible, RRR. No murmurs carotid bruit. No gross JVD. Abdominal Firm, distended, mass palpated in extending from right upper quadrant to right lower quadrant most consistent with hepatomegaly, Abdomen distended, non -tender to palpation in all quadrants. Bowel sounds decreased Genitourinary No bladder tenderness, no flank pain. Normal to palpation Musculoskeletal Extremities tone within normal limits. 2+ pitting edema at hips bilaterally Neurological CN II - XII grossly intact. Extremity motor and sensation grossly intact. Skin Warm, dry and intact. Spider angioma left forehead Psychiatric Patient has good affect, is cooperative Objective Labs 09/16/24 04:40 09/16/24 16:27 Labs: Laboratory Results - last 24 hr 09/12/24 09/15/24 09/16/24 11:15 05:30 04:40 WBC Cancelled 16.8 H D RBC Cancelled 2.68 L Hgb Cancelled 8.7 L Hct Cancelled 26.2 L MCV Cancelled 98 MCH Cancelled 32.5 MCHC Cancelled 33.2 RDW Std Deviation Cancelled 72.2 H Plt Count Cancelled 81 L D Neut % (Auto) Cancelled 81 H Lymph % (Auto) Cancelled 6 L [place] % (Auto) Cancelled 11 Eos % (Auto) Cancelled 1 Baso % (Auto) Cancelled 0 Neut # (Auto) Cancelled 13.6 H Lymph # (Auto) Cancelled 1.0 [place] # (Auto) Cancelled 1.9 H Eos # (Auto) Cancelled 0.1 Baso # (Auto) Cancelled 0.0 Immature Gran # (Auto) Cancelled 0.17 H Absolute Nucleated RBC Cancelled 0.00 Immature Gran % Cancelled 1 H Nucleated RBC % Cancelled 0 PT > 63.0 H* D INR Puncture Site ABG pH ABG pCO2 ABG pO2 ABG HCO3 ABG O2 Saturation ABG Base Excess Oxygen Liter Flow Sodium 141 Potassium 3.9 D Chloride 108 H Carbon Dioxide 22.0 Anion Gap 11 BUN 61 H Creatinine 3.1 H D Estim Creat Clear Calc 20.9 L eGFR 20 L BUN/Creatinine Ratio 20 Glucose 70 L Calculated Osmolality 296 H Lactic Acid Calcium 8.9 Corrected Calcium 10.0 Phosphorus 6.0 H Magnesium 2.4 Total Bilirubin 25.2 H* D AST 117 H ALT 66 H Alkaline Phosphatase 119 H Total Protein 5.7 Albumin 2.6 L Globulin 3.1 Albumin/Globulin Ratio 0.8 L EBV Capsid Ag IgG Ab >750.00 H EBV Capsid Ag IgM Ab <36.00 EBV Nuclear Ag IgG Ab >600.00 H EBV Antibody Interp PAST Misc Test Result Cancelled 09/16/24 09/16/24 10:44 10:57 WBC RBC Hgb Hct MCV MCH MCHC RDW Std Deviation Plt Count Neut % (Auto) Lymph % (Auto) [place] % (Auto) Eos % (Auto) Baso % (Auto) Neut # (Auto) Lymph # (Auto) [place] # (Auto) Eos # (Auto) Baso # (Auto) Immature Gran # (Auto) Absolute Nucleated RBC Immature Gran % Nucleated RBC % PT INR Puncture Site Right Radial ABG pH 7.27 L ABG pCO2 48 ABG pO2 88 ABG HCO3 22 ABG O2 Saturation 96 ABG Base Excess -5 L Oxygen Liter Flow 3 Sodium Potassium Chloride Carbon Dioxide Anion Gap BUN Creatinine Estim Creat Clear Calc eGFR BUN/Creatinine Ratio Glucose Calculated Osmolality Lactic Acid 2.0 Calcium Corrected Calcium Phosphorus Magnesium Total Bilirubin AST ALT Alkaline Phosphatase Total Protein Albumin Globulin Albumin/Globulin Ratio EBV Capsid Ag IgG Ab EBV Capsid Ag IgM Ab EBV Nuclear Ag IgG Ab EBV Antibody Interp Misc Test Result ABG Interpretation ABG results: 08/28/24 08/29/24 09/03/24 22:40 10:05 15:24 ABG pH 7.41 7.50 H ABG pCO2 29 L 33 ABG pO2 69 L 63 L ABG HCO3 18 L 25 ABG O2 Saturation 94 94 ABG Base Excess -6 L 2 VBG pH 7.41 VBG pCO2 47 VBG pO2 30 VBG Base Excess 4 H 09/16/24 10:57 ABG pH 7.27 L ABG pCO2 48 ABG pO2 88 ABG HCO3 22 ABG O2 Saturation 96 ABG Base Excess -5 L VBG pH VBG pCO2 VBG pO2 VBG Base Excess Quality Measures Quality Measures none Advance care planning discussed with:: sibling (Sister, Maggy) Assessment & Plan Assessment Current Active Medications: Generic Name Dose Route Start Last Admin Trade Name Freq PRN Reason Stop Dose Admin Acetaminophen 325 mg 08/28/24 20:28 Acetaminophen 325 Mg Tablet PO 09/27/24 20:27 Q6H PRN PAIN SCALE 1-3 (mild Albuterol/Ipratropium 3 ml 08/28/24 20:24 09/12/24 19:57 Albuterol/Ipratropium (Duoneb) Rt Janessa 3 Ml Nebu INH 09/27/24 22:59 3 ml Q4HRRT PRN Administration Wheeze Citric Acid/Sodium Citrate 30 ml 09/14/24 09:00 09/15/24 09:12 Citric Acid/Sodium Citr 15 Ml Udc (Bicitra) PO 10/14/24 08:59 30 ml DAILY JERSON Administration Dextrose 25 ml 09/15/24 06:05 09/16/24 05:12 Dextrose 50%-Water Inj 50 Ml Syringe IV 10/15/24 06:04 25 ml Q15MIN PRN Administration BG 50-70 responsive npo pt Dextrose 50 ml 09/15/24 06:05 Dextrose 50%-Water Inj 50 Ml Syringe IV 10/15/24 06:04 Q15MIN PRN BG <50 OR BG <70 & pt unresponsive Folic Acid 1 mg 08/29/24 09:00 09/15/24 09:13 Folic Acid 1 Mg Tablet PO 09/28/24 08:59 1 mg QDAY JERSON Administration Glucagon 1 mg 09/15/24 06:05 Glucagon Inj 1 Mg Vial IM Q15MIN PRN BG <70, and no IV access Piperacillin Sod/Tazobactam 50 mls @ 12.5 mls/hr 09/12/24 09:00 09/16/24 09:52 Sod 3.375 gm/ Sodium Chloride IV 09/19/24 08:59 12.5 mls/hr Q12HR JERSON Administration Octreotide Acetate 1,000 mcg/ 102 mls @ 5.1 mls/hr 09/13/24 11:38 09/15/24 23:59 Sodium Chloride IV 09/18/24 11:38 50 mcg/hr .Q20H JERSON 5.1 mls/hr Administration Protocol 50 MCG/HR Lactulose 200 gm 09/16/24 11:00 09/16/24 10:17 Lactulose Syrup 10 Gm/15 Ml VA 10/16/24 10:59 200 gm TID JERSON Administration Protocol Lactulose 30 gm 09/16/24 09:45 Lactulose Syrup 20 Gm/30 Ml Udc GT 10/16/24 09:44 TID JERSON Protocol Midodrine 10 mg 09/09/24 08:00 09/12/24 05:17 Midodrine 5 Mg Tablet PO 10/09/24 07:59 10 mg TID JERSON Administration Pantoprazole Sodium 40 mg 09/08/24 09:00 09/15/24 09:13 Pantoprazole 40 Mg Tablet PO 10/08/24 08:59 40 mg QDAY JERSON Administration Phytonadione 10 mg 09/16/24 10:00 09/16/24 11:01 Phytonadione Inj 10 Mg/Ml Amp SC 09/19/24 09:59 10 mg QDAY JERSON Administration Propranolol HCl 10 mg 09/03/24 21:00 09/15/24 09:13 Propranolol 10 Mg Tablet PO 10/03/24 20:59 10 mg BID JERSON Administration Rifaximin 550 mg 09/16/24 09:00 Rifaximin 550 Mg Tablet PO 09/23/24 08:59 BID JERSON Sodium Chloride 5 ml 08/28/24 17:29 08/28/24 18:47 Sodium Chloride Rt Janessa 0.9% 3 Ml Nebu INH 09/27/24 17:28 3 ml PRN PRN Administration SOLN Thiamine HCl 100 mg 08/28/24 20:45 09/15/24 09:13 Thiamine 100 Mg Tablet PO 09/27/24 20:44 100 mg QDAY JERSON Administration Plan Mr. Stack is a 74-year-old male with past medical history of liver cirrhosis secondary to alcohol use disorder, esophageal varices, ?Asthma/COPD, GERD, anxiety and BPH who was BIBA to [facility] emergency department from home on 08/28/2024 with a chief complaint of altered mental status. Patient will be admitted for workup and management of hepatic encephalopathy and acute blood loss anemia. 1. Altered mental status secondary to Hepatic encephalopathy 2. Non anion gap metabolic acidosis At baseline patient is conversational and oriented x 3. On admission patient was altered and ANO x 0. On exam patient's pupils reactive to light nonverbal and unresponsive to sternal rub. DDx: Hepatic encephalopathy, medication side effect, TIA CT brain was negative for hemorrhage, mass effect or midline shift Ammonia 57 Patient is grunting and responsive to pain only. Patient had 1 bowel movements in the past 48 hours Will switch to lactulose 200g VA TID via rectal tube. pH 7.2, pCO2 40, pO2 80, HCO3 22. Will switch Bicitra to IV bicarbonate Plan: ? Aspiration precautions ? Head of bed elevation ? Neurochecks every 4 hourly - Sodium bicarb 50 mEq IV x 1 ? Continue lactulose 200g VA BID daily ? Continue rifaximin 550 Mg p.o. twice daily ? Continue thiamine p.o. - Upgrade to ICU for one on one nursing 3. Acute on chronic liver failure with coagulopathy and thrombocytopenia 4. Portal hypertension with esophageal varices, hypertensive portal gastropathy and ascites 5. Hyperbilirubinemia 6. Hepatitis C Plt 81 PT >63, INR unrecordable. Will order 1 unit FFP Hepatitis C antibody positive [08/31/2024] EBV IgG positive, IgM negative HCV RNA PCR quant negative CMV, Hep E pending HIV 1 and 2 negative Blood culture no bacterial growth x 48 hours preliminary Urine culture pending EGD completed on 08/29/2024 findings include: Diffuse hypertensive portal gastropathy with mucosal oozing of blood and 1+ esophageal varices not large enough for band ligation. Abdominal ultrasound completed on 09/11/2024 findings include: Gallbladder sludge. Gallbladder wall thickened 0.5 cm. Cirrhosis and mild ascites. Meld?NA score 38 points. 65-66% 90-day mortality. Child?Hernandez class C. 12 points. Life expectancy 1-3 years. Abdominal surgery mortality 82% Madrey score 42. Patient may benefit from steroids T. bili decreased to 25.2 from 25.7 Completed acetylcysteine IV daily to complete on 09/13/2024 for acute on chronic liver failure Completed 3 days of Phytonadione 10 Mg SC daily ffrom 09/10/2024 to 09/13/2024 Plan: ? Continue cardiac diet. ? CMV, Hep E results pending ? 1 unit FFP ordered for transfusion stat ? 2 units PRBC ordered to keep on hold ? Discontinued Protonix 40 Mg p.o. daily - Transfer initiated to tertiary center ? GI, Dr. Hall onboard and closely following the case. Appreciate recommendations. 7. Acute kidney injury prerenal versus renal 8. Anasarca - resolving 9. Proteinuria Baseline CR 0.5. Etiology: AIN, medication side effect, dehydration, hepatorenal syndrome Urine creatinine 216, urine random protein 100, urine sodium <15, urine potassium 50, urine chloride <20. Renal ultrasound completed on 09/08/2024 findings include: No hydronephrosis, no significant cortical thinning. Completed 2 days albumin 25 g IV 3 times daily from [09/08 - 09/10] as per nephrology recommendations Creatinine decreased to 3.1 from 3.6. Urine output 750 cc / 24 hours and mentation is altered Plan: - Dialysis on hold since patient is still making urine as per nephrology recommendations - PPD read pending - Continue octreotide infusion ? Midodrine to 10 Mg p.o. 3 times daily ? Renally dose medication ? Avoid nephrotoxic agents ? Elementary Classroom Teacher, Dr Medrano onboard and closely following the case. Appreciate recommendations 10. Likely aspiration pneumonia - resolved Patient presented with altered mental status On exam patient has decreased air entry at the bases Chest x-ray showed trace fluid in horizontal fissure right lung. Completed 7 days of Augmentin 1 tab p.o. twice daily from [08/30?09/06] 11. Hypokalemia - resolved 12. Hyperphosphatemia K3.9 Phosphorus 6. Sevelamer 800 Mg p.o. x 1 13. Acute blood loss anemia secondary to GI bleed?resolved 14. Likely upper GI bleed secondary to esophageal varices?resolved Patient was found unconscious in a pool of coffee-ground emesis On admission patient's Hb 7.6 and he received 2 units PRBC. Post H&H 7.4 Currently Hb 8.9, Hct 26.8 15. Asthma 16. COPD Home medication Trelegy inhaler pCO2 47 Plan: ? DuoNebs as needed 17. Low TSH 18. Low T4 TSH 0.39, T4 0.84 Likely normal based on patient age 17. Goals of care discussion - SNF [09/01/2024] spoke to next of kin, Maggy Romero over the phone at [phone]. Briefly updated her on patient's hospital course and asked her to come in today for a goals of care discussion. Ms. Romero agreed for 3 PM and said she would call if any change of plans. At baseline she says that patient is independent and can carry out all his ADLs. He also has home health who visits him 6 days a week for a total of 21 hours. Patient's next of kin did not show up today. Will reach out again tomorrow. [09/02/2024] Spoke to next of kin, Maggy Romero over the phone at [phone]. Briefly updated her on patient's hospital course and asked her to come in today for a goals of care discussion. She said she might be able to come in tomorrow for an in person visit. Offered her the options of care home facility versus hospice. She needs more time to think about it. [09/03/2024] Spoke to next of kin, Maggy Romero and her son at bedside. They expressed their wishes for care home. All questions asked were answered and concerns addressed. [09/06/2024] social media analyst in contact with family members, patient to be discharged to SNF, pending authorization and voiding trial (09/10/2024) Spoke with Maggy Romero on the phone, sister OK with hemodialysis if needed. [09/11/2024] Discussed the current management and prognosis with next of kin, Maggy. Discussed worsening of liver function, kidney injury and high likelihood of deterioration and possible . Also updated her that shop helper does not recommend hemodialysis at this point. Also told her that we will try to obtain a hepatology consult. All questions and concerns were addressed and understanding was expressed. [09/14/2024] Updated BOBMaggy Calvillo about possible dialysis tomorrow. Updated on poor prognosis and high likelihood of decompensation and possible . All questions and concerns were addressed. [09/16/2024] Had goals of care discussion with patient's sister/Maggy THOMSON. bank worker Manuel and PGY 2 Dr. Ignacio were present at bedside. Discussed ongoing treatment measures as well as poor prognosis of patient and high possibility of deterioration and possible . NOK/primary decision maker wishes to discuss with his son before making any decisions about changing CODE STATUS or possibility of hospice/palliative care. Discussed with patient's nephew, Simon Romero over the phone at [phone] about patient's hospital course, current treatment and poor prognosis with high possibility of deterioration and possible . All questions and concerns were addressed. She recommended that we reach out to patient's daughter, Ca Stack for further instructions about CODE STATUS/comfort for palliative care. He does not have a number to reach her at but suggested we involve social media analyst. public services librarian are already involved and on the case. Health maintenance: Disposition: Upgraded to ICU for higher level of care Diet: Cardiac Lines: pIVs GI Prophylaxis: Pantoprazole Thrombo Prophylaxis: SCDs Code status: FULL CODE Plan of care discussed with Attending Dr. Coulter and PGY2 Dr. Sandee Green MD PGY 1 Attending Provider Attestation/Addendum I, Earline Coulter, , attest that I was physically present for the vogel portions of the service and evaluated the patient with the resident and I reviewed and discussed the case with the resident and agree with the resident's findings and plans of care as documented above Patient seen and evaluated this AM. Patient had only one bowel movement overnight and found to have gross hematuria this morning. Suspect that patient may have pulled on allen catheter due to confusion resulting in hematuria. Patient is much more somnolent this morning, moving all four extremities spontaneously in response to verbal and tactile stimuli. However, patient is not able to follow commands. NG tube was initiatlly ordered to continue lactulose. However, INR is too high to be calculated due to significantly elevated PT. Will give VitK and transfuse FFP. Will type and cross, as well as hold pRBCs due to concern for bleeding. Will trend H/H. ABG obtained and patient noted to have worsening acidosis and started on bicarb drip.Due to worsening of overall condition, patient's family was updated. Sister has been surrogate decision maker and expressed to continue with full code status. Case discussed with psychopaedic nurse and will transfer patient to ICU due to worsening acidosis and mental status.
[2024-09-16] MEDS: DEXTROSE 50%-WATER INJ 50 ML SYRINGE IV (11:31)
--- NOTE | 2024-09-16 12:00 | PC.SS ---
BLACK JACK DEALER informed by resident that discussion with patient?s nephew, Ander; has been concluded.? BLACK JACK DEALER informed that nephew requesting that patient?s daughter, Ca Lundy; be the person to make the decision to transition the patient to comfort care.? BLACK JACK DEALER met with patient?s sister, Maggy Romero; to provide update on phone conversation between resident and patient?s nephew, Ander.? Patient?s sister confirmed that patient?s daughter, Ca Lundy, will be the one making decision to transition the patient to comfort care.? BLACK JACK DEALER informed patient?s sister that there is not contact number or address for social media editor to attempt contact with the patient?s daughter.? In addition, BLACK JACK DEALER shared with the patient?s sister that chart review indicated that patient on previous admissions (to include current admission) has verbally identified sister, Maggy Romero; as surrogate medical decision maker.? BLACK JACK DEALER informed patient?s sister of need to provide BLACK JACK DEALER with either patient?s daughter?s phone number or physical address to initiate contact to discuss patient?s condition.? Patient?s sister, Maggy Romero; will reach out to family members in an attempt to obtain either a contact number or home address for the patient?s daughter.? BLACK JACK DEALER confirmed with patient?s sister that until contact with patient?s daughter medical team will reach out to patient?s sister, Maggy Romero; for consents and authorizations.?
[2024-09-16] MEDS: LORazepam 2 MG/ML VIAL 1 MG IV (12:24)
--- NOTE | 2024-09-16 13:13 | PC.SS ---
Update: Patient has been upgraded to ICU.
--- NOTE | 2024-09-16 13:47 | ESPR_ITS ---
Documentation for date of: 09/16/24 Subjective Subjective Interval history: Chart review done. Mr. Stack is a 74-year-old male with past medical history of liver cirrhosis secondary to alcohol use disorder, esophageal varices, ?Asthma/COPD, GERD, anxiety and BPH presented to [facility] on 08/28/2024 with a chief complaint of altered mental status. per EMS patient was found to be naked and altered. Noted to have dark blood all over the floor. During the hospital course patient had a GI bleed and was seen by Dr. Hall. Also noted to have metabolic encephalopathy-lactulose, rifaximin were initiated. For the last 24 hours his urine output has dropped significantly and renal consultation was requested. CT brain was negative. 09/08/2024 patient currently seen in telemetry.His current medications included folic acid, lactulose, Protonix, propranolol, rifaximin, thiamine.WBC 11.9, hemoglobin 9.5, platelets 131. Sodium 137, potassium 3.3, BUN 43, creatinine 2.9, calcium 9, phosphorus 3.9, total bilirubin 15.2, AST 132, ALT 53, albumin 1.7. Urine showed concentrated urine with blood and bilirubin. Urine sodium less than 15. Talk screen was negative. Hep panel showed AB and AB-. Hep C positive. Renal ultrasound this afternoon showed no hydronephrosis. No cortical thinning consistent with normal kidneys. Head CT on admission was negative. 09/09/2024 patient currently seen in telemetry. Today he seems to be more alert and awake. Last night hospitalist team called-patient complaining of abdominal pain and shortness of breath. Chest x-ray showed dilated bowel loops. Recommended KUB which showed ileus-NG tube was inserted overnight. Patient currently seems to be feeling little bit better. Denies any abdominal pain. Hemoglobin 9, platelets 109, WBC 11, sodium 137, potassium 3.4, BUN 44, creatinine 3.6, GFR 17, bilirubin significantly elevated to 19, AST 113, ALT 48, alk phos 155, albumin 2.1 urine sodium less than 15 urine output 225 mL/day Noted team started the patient on steroids. Patient has a decompensated liver cirrhosis. Hep C positive. Viral load pending. Dr. Hall on the case. Patient currently on albumin, midodrine, normal saline to rule out hepatorenal syndrome. Will continue the same for another 24 hours. If no improvement then HRS 1 diagnosis will be made 09/10/2024 patient currently seen in telemetry. He is having breakfast. Denies any chest pain, shortness of breath. More alert and awake. Made 500 mL urine last night. Blood sugar 109. Blood pressure 100/53, heart rate 69. WBC 12.3, hemoglobin 8.2, platelets 94. Sodium 137, potassium 3.4, bicarbonate 18.8, BUN 56, creatinine 3.9, glucose 133, calcium 9.1, phosphorus 5.1, magnesium 2.6, total bilirubin 20.9, AST 53, ALT 43, alk phos 133, albumin 2.4. He is currently on midodrine, normal saline at 125 mL/h, albumin 3 times daily, rifaximin. 09/14/2024 patient currently seen in telemetry. Labs, medications reviewed. Creatinine still elevated. BUN, bilirubin significantly elevated. Spoke to Dr. Coulter-continue with prn diuretics. Continue with albumin, rifaximin, midodrine, octreotide. Patient seems to be going towards hepatorenal syndrome I versus ATN. Did talk to the patient yesterday that if no improvement in renal function will plan for renal replacement therapy on Sunday. He agreed. Family requested all aggressive measures including dialysis if needed. Noted transfer was denied by [facility]. He seems to be slightly confused today. 09/15/2024 Patient currently seen in telemetry. He seems to be slightly awake and alert today. Patient made 1600 ml urine. Creatinine stable at 3.6. Hold off on dialysis today. Spoke to Dr. Coulter-gentle IV fluids will be given today. Patient in the negative balance. Clinically looks rather dehydrated. Medications and labs reviewed. 09/16/2024 Patient currently seen in telemetry. This morning he seems to be slow in response. Significant jaundice noted. Creatinine improved to 3.1. Urine output overnight more than [address] Coulter-will do gentle IV fluids. Patient not taking his lactulose. Dr. Coulter planning to place a rectal tube with the lactulose pr. Review of Systems Review of Systems Narrative Review of Systems: Patient noted to be altered today. Arousable. Confused Exam Vital Signs Temp Pulse Resp BP Pulse Ox O2 Del Method O2 Flow Rate 35.9 C L 56 L 15 100/54 L 97 Nasal Cannula 3 09/16/24 13:00 09/16/24 13:00 09/16/24 13:00 09/16/24 13:00 09/16/24 13:00 09/16/24 12:00 09/16/24 12:00 Narrative Exam GENERAL APPEARANCE patient currently seen in telemetry Scleral icterus, jaundice noted. Dry mucosa NECK: Neck supple, no JVD or bruit CARDIOVASCULAR: Heart regular, no murmurs LUNGS/CHEST: Few rhonchi noted bilaterally ABDOMEN: Distended with good bowel sounds. EXTREMITIES: no edema noted in the lower extremities SKIN: Jaundiced MUSCULOSKELETAL: In bed NEUROLOGICAL : Confusion noted Objective Labs 09/16/24 04:40 09/16/24 16:27 Labs: Laboratory Results - last 24 hr 09/12/24 09/14/24 09/15/24 11:15 17:14 05:30 WBC Cancelled RBC Cancelled Hgb Cancelled Hct Cancelled MCV Cancelled MCH Cancelled MCHC Cancelled RDW Std Deviation Cancelled Plt Count Cancelled Neut % (Auto) Cancelled Lymph % (Auto) Cancelled [place] % (Auto) Cancelled Eos % (Auto) Cancelled Baso % (Auto) Cancelled Neut # (Auto) Cancelled Lymph # (Auto) Cancelled [place] # (Auto) Cancelled Eos # (Auto) Cancelled Baso # (Auto) Cancelled Immature Gran # (Auto) Cancelled Absolute Nucleated RBC Cancelled Immature Gran % Cancelled Nucleated RBC % Cancelled PT INR Puncture Site ABG pH ABG pCO2 ABG pO2 ABG HCO3 ABG O2 Saturation ABG Base Excess Oxygen Liter Flow Sodium Potassium Chloride Carbon Dioxide Anion Gap BUN Creatinine Estim Creat Clear Calc eGFR BUN/Creatinine Ratio Glucose Calculated Osmolality Lactic Acid Calcium Corrected Calcium Phosphorus Magnesium Total Bilirubin AST ALT Alkaline Phosphatase Total Protein Albumin Globulin Albumin/Globulin Ratio EBV Capsid Ag IgG Ab >750.00 H EBV Capsid Ag IgM Ab <36.00 EBV Nuclear Ag IgG Ab >600.00 H EBV Antibody Interp PAST Misc Test Result Cancelled Blood Type O Positive Antibody Screen POSITIVE Antibody Identification Anti-E Crossmatch See Detail Blood Bank Wristband ID Yes Blood Bank Comment FFP Ready 09/16/24 09/16/24 09/16/24 04:40 10:44 10:57 WBC 16.8 H D RBC 2.68 L Hgb 8.7 L Hct 26.2 L MCV 98 MCH 32.5 MCHC 33.2 RDW Std Deviation 72.2 H Plt Count 81 L D Neut % (Auto) 81 H Lymph % (Auto) 6 L [place] % (Auto) 11 Eos % (Auto) 1 Baso % (Auto) 0 Neut # (Auto) 13.6 H Lymph # (Auto) 1.0 [place] # (Auto) 1.9 H Eos # (Auto) 0.1 Baso # (Auto) 0.0 Immature Gran # (Auto) 0.17 H Absolute Nucleated RBC 0.00 Immature Gran % 1 H Nucleated RBC % 0 PT > 63.0 H* D INR Puncture Site Right Radial ABG pH 7.27 L ABG pCO2 48 ABG pO2 88 ABG HCO3 22 ABG O2 Saturation 96 ABG Base Excess -5 L Oxygen Liter Flow 3 Sodium 141 Potassium 3.9 D Chloride 108 H Carbon Dioxide 22.0 Anion Gap 11 BUN 61 H Creatinine 3.1 H D Estim Creat Clear Calc 20.9 L eGFR 20 L BUN/Creatinine Ratio 20 Glucose 70 L Calculated Osmolality 296 H Lactic Acid 2.0 Calcium 8.9 Corrected Calcium 10.0 Phosphorus 6.0 H Magnesium 2.4 Total Bilirubin 25.2 H* D AST 117 H ALT 66 H Alkaline Phosphatase 119 H Total Protein 5.7 Albumin 2.6 L Globulin 3.1 Albumin/Globulin Ratio 0.8 L EBV Capsid Ag IgG Ab EBV Capsid Ag IgM Ab EBV Nuclear Ag IgG Ab EBV Antibody Interp Misc Test Result Blood Type Antibody Screen Antibody Identification Crossmatch Blood Bank Wristband ID Blood Bank Comment ABG Interpretation ABG results: 08/28/24 08/29/24 09/03/24 22:40 10:05 15:24 ABG pH 7.41 7.50 H ABG pCO2 29 L 33 ABG pO2 69 L 63 L ABG HCO3 18 L 25 ABG O2 Saturation 94 94 ABG Base Excess -6 L 2 VBG pH 7.41 VBG pCO2 47 VBG pO2 30 VBG Base Excess 4 H 09/16/24 10:57 ABG pH 7.27 L ABG pCO2 48 ABG pO2 88 ABG HCO3 22 ABG O2 Saturation 96 ABG Base Excess -5 L VBG pH VBG pCO2 VBG pO2 VBG Base Excess Assessment & Plan Assessment and plan (1) Acute renal failure (ARF): Status: Acute (2) Acute upper gastrointestinal bleeding: Status: Acute (3) Cirrhosis of liver: Status: Acute (4) Hepatic encephalopathy: Status: Acute (5) Anemia: Status: Acute Additional Assessment & Plan Additional Plan: (1) Acute renal failure (ARF): Status: Acute Assessment and plan: Acute renal failure with worsening renal function and decreased urine output- rule out hepatorenal syndrome versus prerenal azotemia// ATN with fluctuations in blood pressure. Patient was given as needed diuretics. Currently on rifaximin, albumin, midodrine, octreotide. 09/16/2024 Today he seems to be more confused. Spoke to primary team-hold off on dialysis today. Creatinine better at 3.1. Gentle IV fluids will be given as patient clinically looks rather dehydrated. Continue with albumin. Patient needs more lactulose. (2) Acute upper gastrointestinal bleeding: Status: Acute Assessment and plan: Dr. Hall on the case. On PPI (3) Cirrhosis of liver: Status: Acute Assessment and plan: Patient seems to have decompensated liver cirrhosis with GI bleed, varices, hepatic encephalopathy, worsening renal function, thrombocytopenia, anemia. GI on the case. On lactulose, rifaximin patient has a prolonged hospital course for the last couple of weeks Patient did receive steroids. Patient received couple of doses of NAC. Spoke to Dr. Coulter (4) Hepatic encephalopathy: Status: Acute Assessment and plan: On lactulose-not able to take due to his altered mental status. (5) Anemia: Status: Acute Assessment and plan: As needed transfusions Addendum: 4pm --patient moved to ICU for altered mental status, severe acidosis, hypotension.Labs showed sodium 142, potassium 3.3, bicarbonate 21.3, BUN 63, creatinine 3.7, total bilirubin 23.6, calcium 10.2, phosphorus 5.5, AST 97, ALT 53, albumin 2.3 ABG showed pH 7.34, pCO2 40, pO2 240, bicarbonate 21. INR significantly elevated. Spoke to ICU team-dialysis catheter will be placed and patient will need a renal replacement therapy if no improvement in urine output or mentation. Will plan for dialysis tomorrow. Prognosis extremely poor. Family aware. Quality - progress note Quality Measures Quality Measures: VTE prophylaxis Reason for Continued Stay Reason for Continued Stay: further monitoring
[2024-09-16] MEDS: Norepinephrine/D5W 8mg/250ml 8 MG/250 ML BAG 8.391 MG IV (13:56)
[2024-09-16] MEDS: ETOMIDATE INJ 2 MG/ML VIAL 10 ML 20 MG IVP (13:57)
[2024-09-16] MEDS: ROCURONIUM INJ 10 MG/ML VIAL 10 ML 90 MG IV (13:58)
[2024-09-16] MEDS: fentaNYL 2,500 MCG/250 ML BAG 2,500 MCG/250 ML BAG IV (14:08)
[2024-09-16] MEDS: PROPOFOL 1,000 MG IVPB 1,000 MG/100 ML VIAL 2.685 MG IV (14:08)
--- NOTE | 2024-09-16 14:14 | XR_ITS ---
Examination: AP chest single view Technique: AP portable chest single view Exam date and time: September 16, 2024 1447 hrs. Comparison September 12, 2024 Indications: Hypoxic respiratory failure postintubation. Findings: [id number] heart failure Endotracheal tube tip is at the alanna Right internal jugular dialysis catheter tip SVC Prominent elevation right hemidiaphragm Enlarged cardiac contour with prominent vascular congestion Orogastric tube in the stomach Impression: Retract the tracheal tube 3 cm
--- NOTE | 2024-09-16 14:16 | ESCONSULT_ITS ---
HPI Data of Consult Requesting Physician: Earline Coulter DO Admitting Provider: Giorgi Horne MD Attending Provider: Earline Coulter DO Primary Care Provider: Physician No Primary/Family Consult Narrative Reason for consult: Acute respiratory failure History of present illness: Mr. Stack is a 74-year-old male with past medical history significant for hepatitis C, alcoholic cirrhosis, esophageal varices, GERD, anxiety and BPH who presented to the ED on 01/14 with altered mental status and GI bleed. Patient was found by caregiver on the floor in a puddle of dark blood. Throughout hospital stay, patient received an EGD which showed diffuse hypertensive portal gastropathy with mucosal oozing of blood and 1+ esophageal varices not large enough for band ligation. meanwhile we will start him on octreotide drip, lactulose and rifaximin. Patient was mentating well, however prior to discharge a few days ago, patient was experiencing CONNOR, and creatinine continued to increase. Patient was later started on Bicitra daily, octreotide infusion and albumin to help prolong dialysis if necessary. ICU was consulted today for worsening acute respiratory failure and altered mentation. Patient was unable to tolerate p.o. medications blood pressure holding with a MAP of 68. cc:: cc: Earline Coulter DO Review of Systems Review of Systems ROS Unobtainable: unobtainable due to mental status and due to endotracheal tube Exam Vital Signs Temp Pulse Resp BP Pulse Ox O2 Del Method O2 Flow Rate 96.7 F L 51 L 15 110/70 99 Nasal Cannula 3 09/16/24 13:00 09/16/24 14:11 09/16/24 13:00 09/16/24 14:11 09/16/24 14:11 09/16/24 12:00 09/16/24 12:00 FiO2 100 09/16/24 14:11 Narrative Exam Prior to intubation General Appearance: Pt in moderate acute distress, jaundiced appearing, gasping for air. HEENT: NC/AT, bilateral scleral icterus, no conjunctival pallor, dry mucous membranes Lungs: Diminished lung sounds throughout. CVS: Bradycardic, S1/S2 heard, no murmurs or rubs appreciated, pitting edema in hips bilaterally ABD: Firm, distended, mass palpated in right upper quadrant to lower quadrant, bowel sounds hypoactive EXT: no deformity/edema/lesions/cyanosis/clubbing, radial pulses 2+ BL, DP pulses 2 + BL SKIN: Skin exam normal without any rashes. Spider angioma left forehead Neuro: GCS of 6. Patient is responsive to pain and grunting to pressure Results Labs 09/17/24 05:00 09/17/24 05:00 Labs: Short CBC 09/15/24 09/16/24 Range/Units 05:30 04:40 WBC Cancelled 16.8 H D Hgb Cancelled 8.7 L Hct Cancelled 26.2 L Plt Count Cancelled 81 L D BMP 09/16/24 04:40 Sodium 141 Potassium 3.9 D Chloride 108 H Carbon Dioxide 22.0 BUN 61 H Creatinine 3.1 H D Glucose 70 L Calcium 8.9 Liver Function 09/16/24 Range/Units 04:40 Total Bilirubin 25.2 H* D (0.3-1.2) mg/dL AST 117 H (0-34) U/L ALT 66 H (10-49) U/L Alkaline Phosphatase 119 H (46-116) U/L Albumin 2.6 L (3.4-4.8) gm/dL ABG Interpretation ABG results: 08/28/24 08/29/24 09/03/24 22:40 10:05 15:24 ABG pH 7.41 7.50 H ABG pCO2 29 L 33 ABG pO2 69 L 63 L ABG HCO3 18 L 25 ABG O2 Saturation 94 94 ABG Base Excess -6 L 2 VBG pH 7.41 VBG pCO2 47 VBG pO2 30 VBG Base Excess 4 H 09/16/24 10:57 ABG pH 7.27 L ABG pCO2 48 ABG pO2 88 ABG HCO3 22 ABG O2 Saturation 96 ABG Base Excess -5 L VBG pH VBG pCO2 VBG pO2 VBG Base Excess Quality Measures Quality Measures none Advance care planning discussed with:: sibling Medications Home Medications and Allergies Home Medications ?Medication ?Instructions ?Recorded ?Confirmed ?Type fluticasone fur. 200 mcg-umeclid 1 inh inhalation QDAY 07/11/24 09/14/24 History 62.5 mcg-vilant 25 mcg inhalat.powder (Trelegy Ellipta) Allergies Allergy/AdvReac Type Severity Reaction Status Date / Time No Known Allergies Allergy Unknown Verified 07/10/24 14:08 Visit Medications Acetaminophen (Acetaminophen 325 Mg Tablet) 325 mg PO Q6H PRN PRN Reason: PAIN SCALE 1-3 (mild Stop: 09/27/24 20:27 Albuterol/Ipratropium (Albuterol/Ipratropium (Duoneb) Rt Janessa 3 Ml Nebu) 3 ml INH Q4HRRT PRN PRN Reason: Wheeze Stop: 09/27/24 22:59 Last Admin: 09/12/24 19:57 Dose: 3 ml Citric Acid/Sodium Citrate (Citric Acid/Sodium Citr 15 Ml Udc (Bicitra)) 30 ml PO DAILY JERSON Stop: 10/14/24 08:59 Last Admin: 09/16/24 13:14 Dose: Not Given Dextrose (Dextrose 50%-Water Inj 50 Ml Syringe) 25 ml IV Q15MIN PRN PRN Reason: BG 50-70 responsive npo pt Stop: 10/15/24 06:04 Last Admin: 09/16/24 05:12 Dose: 25 ml Dextrose (Dextrose 50%-Water Inj 50 Ml Syringe) 50 ml IV Q15MIN PRN PRN Reason: BG <50 OR BG <70 & pt unresponsive Stop: 10/15/24 06:04 Last Admin: 09/16/24 11:31 Dose: 50 ml Folic Acid (Folic Acid 1 Mg Tablet) 1 mg PO QDAY [facility] Stop: 09/28/24 08:59 Last Admin: 09/16/24 13:14 Dose: Not Given Glucagon (Glucagon Inj 1 Mg Vial) 1 mg IM Q15MIN PRN PRN Reason: BG <70, and no IV access Piperacillin Sod/Tazobactam (Sod 3.375 gm/ Sodium Chloride) 50 mls @ 12.5 mls/hr IV Q12HR JERSON Stop: 09/19/24 08:59 Last Admin: 09/16/24 09:52 Dose: 12.5 mls/hr Octreotide Acetate 1,000 mcg/ (Sodium Chloride) 102 mls @ 5.1 mls/hr IV .Q20H JERSON; Protocol Stop: 09/18/24 11:38 Last Admin: 09/15/24 23:59 Dose: 50 mcg/hr, 5.1 mls/hr Propofol (Diprivan Ivpb) 1,000 mg in 100 mls @ 2.685 mls/hr IV .Q24H PRN; Protocol PRN Reason: PER PROTOCOL Stop: 10/16/24 13:42 Fentanyl Citrate (Sublimaze Inj 2,500 Mcg/250 Ml Bag) 2,500 mcg in 250 mls @ 2.5 mls/hr IV .Q24H PRN; Protocol PRN Reason: PER PROTOCOL Stop: 09/21/24 13:43 Lactulose (Lactulose Syrup 10 Gm/15 Ml) 200 gm IN TID JERSON; Protocol Stop: 10/16/24 10:59 Last Admin: 09/16/24 10:17 Dose: 200 gm Midodrine (Midodrine 5 Mg Tablet) 10 mg PO TID JERSON Stop: 10/09/24 07:59 Last Admin: 09/16/24 13:19 Dose: Not Given Pantoprazole Sodium (Pantoprazole 40 Mg Tablet) 40 mg PO QDAY [facility] Stop: 10/08/24 08:59 Last Admin: 09/16/24 13:14 Dose: Not Given Phytonadione (Phytonadione Inj 10 Mg/Ml Amp) 10 mg SC QDAY JERSON Stop: 09/19/24 09:59 Last Admin: 09/16/24 11:01 Dose: 10 mg Propranolol HCl (Propranolol 10 Mg Tablet) 10 mg PO BID JERSON Stop: 10/03/24 20:59 Last Admin: 09/15/24 09:13 Dose: 10 mg Rifaximin (Rifaximin 550 Mg Tablet) 550 mg PO BID [facility] Stop: 09/23/24 08:59 Last Admin: 09/16/24 13:14 Dose: Not Given Sodium Chloride (Sodium Chloride Rt Janessa 0.9% 3 Ml Nebu) 5 ml INH PRN PRN PRN Reason: SOLN Stop: 09/27/24 17:28 Last Admin: 08/28/24 18:47 Dose: 3 ml Thiamine HCl (Thiamine 100 Mg Tablet) 100 mg PO QDAY [facility] Stop: 09/27/24 20:44 Last Admin: 09/16/24 13:14 Dose: Not Given Discontinued Medications Albuterol (Albuterol Rt 2.5 Mg/0.5 Ml Nebu) 5 mg INH X1 ONE Stop: 08/28/24 17:30 Last Admin: 08/28/24 18:45 Dose: 5 mg Alprazolam (Alprazolam 0.25 Mg Tablet) 0.5 mg PO X1 ONE Stop: 08/31/24 01:49 Last Admin: 08/31/24 02:05 Dose: 0.5 mg Amoxicillin/Clavulanate Potassium (Amoxicillin/Pot Clav 875 Tablet) 1 tab PO BID JERSON Stop: 09/06/24 20:59 Last Admin: 09/06/24 09:05 Dose: 1 tab Calcium Gluconate (Calcium Gluconate 10% Inj 1 Gm/10 Ml Vial) 1 gm IV X1 ONE Stop: 08/28/24 17:32 Last Admin: 08/28/24 18:29 Dose: 1 gm Citric Acid/Sodium Citrate (Citric Acid/Sodium Citr 15 Ml Udc (Bicitra)) 30 ml PO BID JERSON Stop: 10/12/24 09:44 Last Admin: 09/12/24 20:44 Dose: 30 ml Dextrose (Dextrose 50%-Water Inj 50 Ml Syringe) 50 ml IV X1 ONE Stop: 08/28/24 17:30 Last Admin: 08/28/24 18:28 Dose: 50 ml Dextrose (Dextrose 50%-Water Inj 50 Ml Syringe) 50 ml IV X1 ONE Stop: 09/15/24 06:06 Last Admin: 09/15/24 06:23 Dose: 50 ml Dextrose (Dextrose 50%-Water Inj 50 Ml Syringe) 50 ml IV X1 ONE Stop: 09/15/24 16:51 Last Admin: 09/15/24 16:55 Dose: 50 ml Diphenhydramine HCl (Diphenhydramine Elix 25 Mg/10 Ml Udc) 50 mg PO X1 ONE Stop: 09/10/24 19:12 Last Admin: 09/10/24 19:43 Dose: 50 mg Etomidate (Etomidate Inj 2 Mg/Ml Vial 10 Ml) 20 mg IVP X1 ONE Stop: 09/16/24 13:43 Last Admin: 09/16/24 13:57 Dose: 20 mg Fluconazole (Fluconazole 100 Mg Tablet) 200 mg PO QDAY JERSON Stop: 09/18/24 19:14 Last Admin: 09/13/24 08:40 Dose: 200 mg Furosemide (Furosemide Inj 10 Mg/Ml 4ml Vial) 40 mg IVP X1 ONE Stop: 09/11/24 12:00 Last Admin: 09/11/24 12:53 Dose: 40 mg Sodium Chloride (Ns) 1,000 mls @ 999 mls/hr IV .Q1H1M ONE Stop: 08/28/24 18:28 Last Infusion: 08/28/24 19:28 Dose: Infused Octreotide Acetate 1,000 mcg/ (Sodium Chloride) 102 mls @ 5.1 mls/hr IV .Q20H ONE; Protocol Stop: 08/29/24 13:46 Last Admin: 08/28/24 18:48 Dose: 50 mcg/hr, 5.1 mls/hr Ceftriaxone Sodium/Dextrose (Rocephin/D5w 1gm Iv Premix) 50 mls @ 100 mls/hr IV X1 ONE Stop: 08/28/24 18:17 Last Infusion: 08/28/24 19:01 Dose: Infused Lactated Ringer's (Lactated Ringers) 1,000 mls @ 75 mls/hr IV .[id number] JERSON Stop: 08/29/24 09:49 Last Admin: 08/28/24 21:36 Dose: 75 mls/hr Ceftriaxone Sodium/Dextrose (Rocephin/D5w 1gm Iv Premix) 50 mls @ 100 mls/hr IV QDAY JERSON Stop: 09/05/24 08:59 Last Admin: 08/30/24 09:50 Dose: 100 mls/hr Octreotide Acetate 1,000 mcg/ (Sodium Chloride) 102 mls @ 5.1 mls/hr IV .Q20H JERSON; Protocol Stop: 09/02/24 17:46 Last Infusion: 09/02/24 23:15 Dose: 0 mcg/hr, 0 mls/hr Dextrose/Sodium Chloride (D5-Ns) 1,000 mls @ 100 mls/hr IV .Q10H ONE Stop: 08/30/24 18:39 Last Admin: 08/30/24 09:50 Dose: 100 mls/hr Potassium Chloride (Kcl Ivpb) 10 meq in 100 mls @ 100 mls/hr IV Q1H JERSON Stop: 08/31/24 11:06 Last Admin: 08/31/24 12:54 Dose: 100 mls/hr Dextrose (D5w) 1,000 mls @ 100 mls/hr IV .Q10H JERSON Stop: 09/30/24 14:14 Last Admin: 09/06/24 07:19 Dose: Not Given Dextrose (D5w) 1,000 mls @ 100 mls/hr IV .Q10H ONE Stop: 09/01/24 01:05 Last Admin: 08/31/24 15:18 Dose: 100 mls/hr Potassium Phosphate (Pot Phos 15 Mmol In Ns 250 Ml) 15 mmol in 250 mls @ 62.5 mls/hr IV Q4H [facility] Stop: 09/01/24 15:51 Last Admin: 09/01/24 12:47 Dose: 62.5 mls/hr Sodium Phosphate 30 mmol/ (Sodium Chloride) 510 mls @ 62.5 mls/hr IV X1 ONE Stop: 09/04/24 16:04 Last Admin: 09/04/24 09:33 Dose: 62.5 mls/hr Potassium Chloride (Kcl Ivpb) 10 meq in 100 mls @ 100 mls/hr IV Q1H ONE Stop: 09/06/24 09:59 Last Admin: 09/06/24 09:12 Dose: 100 mls/hr Phytonadione 10 mg/ Sodium (Chloride) 51 mls @ 102 mls/hr IV X1 ONE Stop: 09/06/24 12:29 Last Admin: 09/06/24 12:48 Dose: 102 mls/hr Potassium Phosphate (Pot Phos 15 Mmol In Ns 250 Ml) 15 mmol in 250 mls @ 62.5 mls/hr IV Q4H [facility] Stop: 09/07/24 15:31 Last Admin: 09/07/24 09:20 Dose: 62.5 mls/hr Dextrose/Sodium Chloride (D5-Ns) 1,000 mls @ 100 mls/hr IV .Q10H JERSON Stop: 09/08/24 10:29 Last Admin: 09/08/24 03:24 Dose: 100 mls/hr Sodium Chloride (Ns) 1,000 mls @ 125 mls/hr IV .Q8H JERSON Stop: 10/08/24 10:00 Last Admin: 09/11/24 09:20 Dose: 125 mls/hr Sodium Chloride (Ns) 1,000 mls @ 999 mls/hr IV .Q1H1M ONE Stop: 09/08/24 14:12 Last Admin: 09/08/24 14:41 Dose: 999 mls/hr Albumin Human (Albuminar-25 Ivpb) 25 gm in 100 mls @ 100 mls/hr IV TID JERSON Stop: 09/10/24 13:59 Last Infusion: 09/10/24 06:45 Dose: Infused Vancomycin HCl (Vancomycin/Water 1250 Mg Ivpb) 250 mls @ 120 mls/hr IV X1 ONE Stop: 09/11/24 21:34 Last Infusion: 09/11/24 22:28 Dose: Infused Piperacillin Sod/Tazobactam (Sod 4.5 gm/ Sodium Chloride) 100 mls @ 200 mls/hr IV X1 ONE Stop: 09/11/24 19:59 Last Infusion: 09/11/24 20:25 Dose: Infused Vancomycin/Sodium Chloride (Vancomycin/Ns 500 Mg Ivpb) 100 mls @ 120 mls/hr IV X1 ONE Stop: 09/12/24 10:49 Last Admin: 09/12/24 10:41 Dose: 120 mls/hr Acetylcysteine 11,250 mg/ (Dextrose) 256.25 mls @ 256.25 mls/hr IV .BY DURATION JERSON Stop: 09/13/24 08:50 Last Admin: 09/12/24 11:14 Dose: 256.25 mls/hr Acetylcysteine 3,750 mg/ (Dextrose) 518.75 mls @ 129.687 mls/hr IV .BY DURATION JERSON Stop: 09/13/24 08:50 Last Admin: 09/12/24 12:57 Dose: 129.687 mls/hr Acetylcysteine 7,500 mg/ (Dextrose) 1,037.5 mls @ 64.844 mls/hr IV .BY DURATION JERSON Stop: 09/13/24 08:50 Last Admin: 09/13/24 10:06 Dose: 64.844 mls/hr Vancomycin/Sodium Chloride (Vancomycin/Ns 500 Mg Ivpb) 100 mls @ 120 mls/hr IV X1 ONE Stop: 09/13/24 10:49 Last Admin: 09/13/24 10:04 Dose: 120 mls/hr Potassium Chloride (Kcl Ivpb) 10 meq in 100 mls @ 100 mls/hr IV Q1H JERSON Stop: 09/13/24 12:10 Last Admin: 09/13/24 14:53 Dose: 100 mls/hr Albumin Human (Albuminar-25 Ivpb) 25 gm in 100 mls @ 100 mls/hr IV QDAY JERSON Stop: 09/15/24 09:59 Last Admin: 09/15/24 08:10 Dose: 100 mls/hr Vancomycin/Sodium Chloride (Vancomycin/Ns 500 Mg Ivpb) 100 mls @ 120 mls/hr IV X1 ONE Stop: 09/14/24 10:49 Last Infusion: 09/14/24 19:35 Dose: Infused Potassium Chloride (Kcl Ivpb) 10 meq in 100 mls @ 100 mls/hr IV Q1H JERSON Stop: 09/14/24 11:57 Last Infusion: 09/14/24 19:34 Dose: Infused Potassium Chloride (Kcl Ivpb) 10 meq in 100 mls @ 100 mls/hr IV Q1H JERSON Stop: 09/15/24 11:32 Last Admin: 09/15/24 12:26 Dose: 70 mls/hr Sodium Chloride (Ns) 1,000 mls @ 999 mls/hr IV .Q1H1M ONE Stop: 09/16/24 09:25 Last Admin: 09/16/24 09:52 Dose: 999 mls/hr Insulin Human Regular (Insulin Hum Regular 1 Unit/0.01 Ml (Per Unit)) 5 unit IV X1 ONE Stop: 08/28/24 17:30 Last Admin: 08/28/24 18:30 Dose: 5 unit Lactulose (Lactulose Syrup 20 Gm/30 Ml Udc) 20 gm PO X1 ONE; Protocol Stop: 08/28/24 17:48 Last Admin: 08/28/24 18:30 Dose: 20 gm Lactulose (Lactulose Syrup 20 Gm/30 Ml Udc) 20 gm PO TID JERSON; Protocol Stop: 09/27/24 21:59 Last Admin: 08/29/24 05:46 Dose: Not Given Lactulose (Lactulose Syrup 20 Gm/30 Ml Udc) 20 gm IN TID JERSON; Protocol Stop: 09/28/24 13:59 Lactulose (Lactulose Syrup 20 Gm/30 Ml Udc) 20 gm IN STAT ONE; Protocol Stop: 08/29/24 10:16 Last Admin: 08/29/24 10:23 Dose: 20 gm Lactulose (Lactulose Syrup 10 Gm/15 Ml) 200 gm IN X1 ONE; Protocol Stop: 08/29/24 11:13 Last Admin: 08/29/24 11:53 Dose: 200 gm Lactulose (Lactulose Syrup 10 Gm/15 Ml) 200 gm IN TID JERSON; Protocol Stop: 09/28/24 15:59 Last Admin: 08/31/24 06:25 Dose: Not Given Lactulose (Lactulose Syrup 20 Gm/30 Ml Udc) 20 gm IN TID ONE; Protocol Stop: 08/29/24 15:04 Lactulose (Lactulose Syrup 20 Gm/30 Ml Udc) 40 gm PO TID JERSON; Protocol Stop: 09/30/24 13:59 Last Admin: 09/01/24 14:28 Dose: 40 gm Lactulose (Lactulose Syrup 20 Gm/30 Ml Udc) 30 gm PO TID JERSON; Protocol Stop: 10/01/24 21:59 Last Admin: 09/03/24 05:46 Dose: Not Given Lactulose (Lactulose Syrup 20 Gm/30 Ml Udc) 30 gm PO BID JERSON; Protocol Stop: 10/03/24 20:59 Last Admin: 09/03/24 20:32 Dose: 30 gm Lactulose (Lactulose Syrup 20 Gm/30 Ml Udc) 30 gm PO TID JERSON; Protocol Stop: 10/04/24 13:59 Lactulose (Lactulose Syrup 20 Gm/30 Ml Udc) 30 gm PO QID JERSON; Protocol Stop: 10/04/24 11:59 Last Admin: 09/08/24 05:05 Dose: Not Given Lactulose (Lactulose Syrup 20 Gm/30 Ml Udc) 30 gm PO TID JERSON; Protocol Stop: 10/08/24 13:59 Last Admin: 09/11/24 05:36 Dose: 30 gm Lactulose (Lactulose Syrup 20 Gm/30 Ml Udc) 25 gm PO TID JERSON; Protocol Stop: 10/11/24 13:59 Last Admin: 09/12/24 05:17 Dose: 25 gm Lactulose (Lactulose Syrup 20 Gm/30 Ml Udc) 25 gm PO BID JERSON; Protocol Stop: 10/12/24 20:59 Last Admin: 09/12/24 20:42 Dose: 25 gm Lactulose (Lactulose Syrup 20 Gm/30 Ml Udc) 30 gm PO BID JERSON; Protocol Stop: 10/13/24 08:59 Last Admin: 09/13/24 20:35 Dose: Not Given Lactulose (Lactulose Syrup 20 Gm/30 Ml Udc) 30 gm PO TID JERSON; Protocol Stop: 10/14/24 08:14 Last Admin: 09/15/24 05:20 Dose: 30 gm Lactulose (Lactulose Syrup 20 Gm/30 Ml Udc) 30 gm PO QID JERSON; Protocol Stop: 10/15/24 11:59 Lactulose (Lactulose Syrup 10 Gm/15 Ml) 200 gm IN TID JERSON; Protocol Stop: 10/15/24 08:59 Lactulose (Lactulose Syrup 20 Gm/30 Ml Udc) 20 gm PO TID JERSON; Protocol Stop: 10/15/24 13:59 Last Admin: 09/15/24 21:01 Dose: 20 gm Lactulose (Lactulose Syrup 20 Gm/30 Ml Udc) 20 gm IN TID JERSON; Protocol Stop: 10/16/24 05:59 Last Admin: 09/16/24 06:24 Dose: 20 gm Lactulose (Lactulose Syrup 20 Gm/30 Ml Udc) 200 gm IN TID JERSON; Protocol Stop: 10/16/24 13:59 Lactulose (Lactulose Syrup 20 Gm/30 Ml Udc) 30 gm GT TID JERSON; Protocol Stop: 10/16/24 09:44 Last Admin: 09/16/24 13:19 Dose: Not Given Lorazepam (Lorazepam 2 Mg/Ml Vial) 2 mg IVP X1 ONE Stop: 08/28/24 17:29 Last Admin: 08/28/24 19:00 Dose: Not Given Lorazepam (Lorazepam 2 Mg/Ml Vial) 2 mg IVP X1 ONE Stop: 08/28/24 19:10 Last Admin: 08/28/24 21:17 Dose: 2 mg Lorazepam (Lorazepam 2 Mg/Ml Vial) 2 mg IVP X1 ONE Stop: 08/28/24 22:04 Last Admin: 08/28/24 22:06 Dose: 2 mg Lorazepam (Lorazepam 2 Mg/Ml Vial) 0.5 mg IVP X1 PRN PRN Reason: Please give before MRI Stop: 09/16/24 09:44 Lorazepam (Lorazepam 2 Mg/Ml Vial) 1 mg IV X1 ONE Stop: 09/16/24 12:14 Last Admin: 09/16/24 12:24 Dose: 1 mg Midazolam HCl (Midazolam Inj 1 Mg/Ml Vial 2 Ml) 1 mg IV Q2M PRN PRN Reason: MODERATE SEDATION Midodrine (Midodrine 5 Mg Tablet) 5 mg PO TID [facility] Stop: 09/29/24 08:24 Last Admin: 08/30/24 23:11 Dose: Not Given Midodrine (Midodrine 5 Mg Tablet) 5 mg PO TID [facility] Stop: 09/29/24 08:24 Last Admin: 09/07/24 05:23 Dose: 5 mg Midodrine (Midodrine 5 Mg Tablet) 5 mg PO TID PRN PRN Reason: SBP < 90 Stop: 09/29/24 08:24 Last Admin: 09/09/24 05:25 Dose: 5 mg Octreotide Acetate (Octreotide Acet Inj 50 Mcg/Ml Vial) 50 mcg IV X1 ONE Stop: 08/28/24 17:48 Last Admin: 08/28/24 18:40 Dose: 50 mcg Octreotide Acetate (Octreotide Acet Inj 50 Mcg/Ml Vial) 50 mcg IV X1 ONE Stop: 09/13/24 11:39 Last Admin: 09/13/24 13:10 Dose: 50 mcg Ondansetron HCl (Ondansetron Inj 2 Mg/Ml Inj 2 Ml) 4 mg IV X1 ONE; Protocol Stop: 08/28/24 19:10 Last Admin: 08/28/24 21:17 Dose: 4 mg Pantoprazole Sodium (Pantoprazole Inj 40 Mg Vial) 80 mg IV X1 ONE Stop: 08/28/24 17:48 Last Admin: 08/28/24 18:29 Dose: 80 mg Pantoprazole Sodium (Pantoprazole Inj 40 Mg Vial) 40 mg IVP BID [facility] Stop: 09/27/24 20:59 Last Admin: 09/07/24 09:21 Dose: 40 mg Pharmacy Consult (Vancomycin Pharmacy To Dose 1 Each Each) 1 each IV QDAY [facility] Stop: 10/11/24 19:14 Last Admin: 09/13/24 09:53 Dose: Not Given Phytonadione (Phytonadione Inj 10 Mg/Ml Amp) 10 mg SC X1 ONE Stop: 09/06/24 11:56 Last Admin: 09/06/24 12:17 Dose: Not Given Phytonadione (Phytonadione Inj 10 Mg/Ml Amp) 10 mg SC QDAY [facility] Stop: 09/13/24 19:14 Last Admin: 09/13/24 08:39 Dose: 10 mg Potassium Chloride (Potassium Chloride 10% 20 Meq/15 Ml Udc) 40 meq PO X1 ONE Stop: 08/31/24 07:07 Last Admin: 08/31/24 08:45 Dose: 40 meq Potassium Chloride (Potassium Chloride 10% 20 Meq/15 Ml Udc) 20 meq PO X1 ONE Stop: 09/01/24 07:57 Last Admin: 09/01/24 08:24 Dose: 20 meq Potassium Chloride (Potassium Chloride 10% 20 Meq/15 Ml Udc) 40 meq PO X1 ONE Stop: 09/02/24 08:35 Last Admin: 09/02/24 08:54 Dose: 40 meq Potassium Chloride (Potassium Chloride 20 Meq Tabcr) 40 meq PO X1 ONE Stop: 09/06/24 09:01 Last Admin: 09/06/24 09:11 Dose: 40 meq Potassium Chloride (Potassium Chloride 10% 20 Meq/15 Ml Udc) 40 meq PO X1 ONE Stop: 09/07/24 10:29 Last Admin: 09/07/24 12:09 Dose: 40 meq Potassium Chloride (Potassium Chloride 10% 20 Meq/15 Ml Udc) 40 meq PO X1 ONE Stop: 09/08/24 07:44 Last Admin: 09/08/24 08:45 Dose: 40 meq Potassium Chloride (Potassium Chloride 10% 20 Meq/15 Ml Udc) 20 meq PO X1 ONE Stop: 09/12/24 08:23 Last Admin: 09/12/24 11:53 Dose: 20 meq Potassium Chloride (Potassium Chloride 10% 20 Meq/15 Ml Udc) 40 meq PO X1 ONE Stop: 09/13/24 07:56 Last Admin: 09/13/24 08:00 Dose: Not Given Potassium Chloride (Potassium Chloride 20 Meq Tabcr) 40 meq PO X1 ONE Stop: 09/13/24 08:41 Last Admin: 09/13/24 09:00 Dose: Not Given Potassium Phos/Sodium Phos (Naph,[facility] Mbdb 1 Packet (1.5 Gm)) 1 packet PO X1 ONE Stop: 08/31/24 07:19 Last Admin: 08/31/24 08:45 Dose: 1 packet Potassium Phos/Sodium Phos (Naph,Kph Mbdb 1 Packet (1.5 Gm)) 1 packet PO X1 ONE Stop: 09/07/24 10:29 Last Admin: 09/07/24 12:09 Dose: 1 packet Prednisone (Prednisone 20 Mg Tablet) 40 mg PO QDAY [facility] Stop: 09/16/24 08:43 Last Admin: 09/11/24 08:05 Dose: 40 mg Propranolol HCl (Propranolol 10 Mg Tablet) 10 mg PO TID [facility] Stop: 09/30/24 13:59 Last Admin: 09/03/24 14:26 Dose: Not Given Rifaximin (Rifaximin 550 Mg Tablet) 550 mg PO BID [facility] Stop: 09/10/24 20:59 Last Admin: 09/10/24 08:23 Dose: 550 mg Rocuronium [place] (Rocuronium Inj 10 Mg/Ml Vial 10 Ml) 90 mg 1 mg/kg (90 mg) IV X1 ONE Stop: 09/16/24 13:43 Last Admin: 09/16/24 13:58 Dose: 90 mg Sevelamer Carbonate (Sevelamer Carbonate 800 Mg Tablet) 800 mg PO X1 ONE Stop: 09/11/24 07:59 Last Admin: 09/11/24 08:09 Dose: 800 mg Sevelamer Carbonate (Sevelamer Carbonate 800 Mg Tablet) 800 mg PO TIDWM [facility]ERSON Stop: 10/12/24 11:59 Last Admin: 09/12/24 17:29 Dose: 800 mg Sevelamer Carbonate (Sevelamer Carbonate 800 Mg Tablet) 800 mg PO X1 ONE Stop: 09/16/24 07:34 Last Admin: 09/16/24 13:14 Dose: Not Given Sodium Polystyrene Sulfonate (Sod Polystyrene Sulfon Susp 15 Gm/60 Ml Btl) 30 gm PO X1 ONE Stop: 08/28/24 17:30 Last Admin: 08/28/24 18:30 Dose: 30 gm Tuberculin PPD (Tuberculin Ppd Inj 5 Unit/0.1 Ml Dose) 5 unit ID X1 ONE Stop: 09/14/24 17:27 Last Admin: 09/14/24 18:17 Dose: 5 unit Assessment & Plan Plan NEURO #Acute encephalopathy At baseline patient is conversational and oriented x 3. On admission patient was altered and A&O x 0. On exam patient's pupils reactive to light nonverbal and unresponsive to sternal rub. DDx: Hepatic encephalopathy, medication side effect, TIA CT brain was negative for hemorrhage or mass effect Ammonia 57 ? Continue with Lactulose 200g IN TID via rectal tube ? Aspiration precautions ? Head of bed elevation ? Continue lactulose 200g IN BID daily ? Continue rifaximin 550 Mg NG twice daily ? Continue thiamine NG CARDIO #Undifferentiated Shock Most likely in the setting of CONNOR -Patient started on Levophed and Vasopressin, titrate > 65 #Bradycardia in the setting of Propofol PULM #Acute Respiratory Failure requiring intubation Patient was a GCS6 prior to intubation and gasping for air, and intubated for acute respiratory failure -Vent settings: AC/VC, TV 400, RR 20, PEEP 5, FiO 80% #Likely aspiration pneumonia - resolved Patient presented with altered mental status On exam patient has decreased air entry at the bases Chest x-ray showed large R pleural effusion Completed 7 days of Augmentin 1 tab p.o. twice daily from [08/30?09/06] #Hx of COPD Home medication Trelegy inhaler pCO2 47 ? DuoNebs as needed GI/FEN #Acute blood loss anemia secondary to GI bleed?resolved #Esophageal varices?resolved Patient was found unconscious in a pool of coffee-ground emesis On admission patient's Hb 7.6 and he received 2 units PRBC. Post H&H 7.4 Currently Hb 8.9, Hct 26.8 -Continue to monitor daily H&H #Acute on chronic liver failure with coagulopathy and thrombocytopenia #Portal hypertension with esophageal varices, hypertensive portal gastropathy and ascites #Hyperbilirubinemia #Hepatitis C Plt 81 PT >63, INR unrecordable. Will order 1 unit FFP Hepatitis C antibody positive [08/31/2024] EBV IgG positive, IgM negative HCV RNA PCR quant negative CMV, Hep E pending HIV 1 and 2 negative Blood culture no bacterial growth x 48 hours preliminary Urine culture pending EGD showed Diffuse hypertensive portal gastropathy with mucosal oozing of blood and 1+ esophageal varices not large enough for band ligation. Abdominal ultrasound completed on 09/11/2024 findings include: Gallbladder sludge. Gallbladder wall thickened 0.5 cm. Cirrhosis and mild ascites. Meld?NA score 38 points. 65-66% 90-day mortality. Child?Hernandez class C. 12 points. Life expectancy 1-3 years. Abdominal surgery mortality 82% Madrey score 42. Patient may benefit from steroids T. bili decreased to 25.2 from 25.7 Completed acetylcysteine IV daily to complete on 09/13/2024 for acute on chronic liver failure Completed 3 days of Phytonadione 10 Mg SC daily ffrom 09/10/2024 to 09/13/2024 RENAL #Acute Respiratory acidosis #Non anion gap metabolic acidosis Patient is grunting and responsive to pain only. Patient had 1 bowel movements in the past 48 hours Will switch to lactulose 200g IN TID via rectal tube. pH 7.34, pCO2 40, pO2 240, HCO3 21. ? Continue with Lactulose 200g IN TID via rectal tube ? Aspiration precautions ? Head of bed elevation ? Continue lactulose 200g IN BID daily ? Continue rifaximin 550 Mg NG twice daily ? Continue thiamine NG and Bicitra #Acute kidney injury prerenal versus renal #Anasarca - resolving #Proteinuria #Hematuria Baseline CR 0.5. Etiology: AIN, medication side effect, dehydration, hepatorenal syndrome Urine creatinine 216, urine random protein 100, urine sodium <15, urine potassium 50, urine chloride <20. Renal ultrasound completed on 09/08/2024 findings include: No hydronephrosis, no significant cortical thinning. Patient continues to produce bloody urine in Garcia - Dialysis tmw after patient is stable - Continue octreotide infusion ? Midodrine to 10 Mg NG times daily ? Renally dose medications ? Avoid nephrotoxic agents ? Activities Coordinator, , appreciate recommendations #Hyperphosphatemia K3.9 Phosphorus 6. -Dialysis line placed -Will perfrom dialysis in AM after patient is stable -F/u repeat CMP and Phos labs HEME/ONC #Acute blood loss Anemia -improving Hgb 8.7 and Hct 26.2, MCV 98 -Continue to monitor daily CBC ENDO #Subclinical hypothyroidism TSH 0.39, T4 0.84 Likely normal based on patient age ID No active disease Health Maintenance: DVT prophylaxis: SCDs Diet: NPO Garcia: Yes Lines: PIV Drips: Propofol, fentanyl Vent: Tidal volume 400, respiratory rate 20,PEEP 5.0 FiO2 80% CODE STATUS: DNR, GOC discussion had with family at bedside, and will decide tomorrow based on daugter's decision. Disposition: Admitted to ICU for acute respiratory and AMS requiring intubation. Patient's plan and care discussed with my attending, Dr. Heath Copeland MD PGY-2 Attending Provider Attestation/Addendum Patient seen and examined with above resident, Trina Copeland MD. I agree with the findings, assessment, and plan of care as documented except for any differences below. Patient with unfortunate decompensation of his liver disease and development of probable HRS and the medical team has tried to exclude presence of alternate etiologies of acute kidney injury superimposed on his chronic liver disease. Patient does have significant ascites and right hepatic hydrothorax with likely compressive atelectasis versus right lower lobe infiltrate. Requiring vasopressors now likely in the setting of acidosis from impending respiratory failure warranting emergent intubation and mechanical ventilation. Patient's hemodynamics did improve after intubation but he remains on low-dose Levophed. He remains on empiric Zosyn but infection seems less likely an etiology of distributive shock makes more sense for decompensated liver disease given his continued rising bilirubin. MELD score extremely elevated with high mortality along with chills. Class C. Patient's family is aware of patient's overall prognosis and have appropriately transitioned his CODE STATUS to DNR given likely poor functional outcome in case of cardiac arrest. Patient has already been intubated and will remain so in order to allow time for potential further interventions if this is ultimately what the patient's family decides. Will continue aggressive supportive care with nonproductive ventilation and hemodynamic support using vasopressors along with volume resuscitation. Will avoid any aggressive invasive procedures until the patient's family has decided after discussion with the patient's daughter who has been disconnected from her father for many years now however she is the appropriate surrogate should she return to the picture. Patient's sister has been helping make decisions and niece who is also also a nurse as well as nephew who is a physician in [facility] have all been helping their mother make decisions for the patient. Patient may ultimately require hemodialysis and thus central access was placed with dialysis catheter in anticipation of this still remains at high risk given his vasopressor requirements and overall prognosis. Will await initiation of this after further discussion with the family as well as nephrology. Total critical care time: I personally spent 35 minutes for review of physiologic parameters, directing plan of care throughout the day, coordination of care with other subspecialists, and counseling patient's family at bedside. This is exclusive of time spent teaching housestaff or performing any separate billable procedures. Patient continues to provide critical care services for acute encephalopathy and acute hypoxic respiratory failure secondary to decompensated alcoholic cirrhosis and hepatorenal syndrome. Patient remains at high risk for mortality and further morbidity warranting close monitoring and care only available in the intensive care unit.
--- NOTE | 2024-09-16 14:17 | PD.RESPROC ---
Procedures Procedure Date / Time 09/16/24 1417 Procedure Narrative Procedure Narrative: Attending attestation: I was present for entire procedure. Patient tolerated procedure well with no immediate complications. Follow-up chest x-ray shows ET tube at alanna, retracted 3 cm. Intubation Indication(s): inability to protect airway Informed consent obtained: obtained from surrogate decision maker Time out done, and the following verified: correct patient, side and site, procedure, patient position and implants and/or equipment Sedative: etomidate Mg given: 20 Paralytic: rocuronium Mg given: 90 Laryngoscope: other (GlideScope) ET tube size: 8 ET tube uncuffed: No Tube secured depth (cm): 24 Tube secured location: lips Tube placement confirmation: visualized tube passing through cords, equal breath sounds bilaterally, no breath sounds over epigastrium and confirmation by capnometry Patient tolerated procedure: well EBL(ml): 0 Intubation complications: none Additional comments: Pre-oxygenation was provided with BVM. Induction was provided with 20 mg etomodate and 90 mg rocuronium. Orotracheal intubation was performed using video laryngoscopy with 8 endotracheal tube and with excellent view of vocal cords. Endotracheal tube position was confirmed by capnography. The endotracheal tube was secured at [24cm] at lips. Proper intratracheal position of the endotracheal tube was verified on portable chest -x-ray, and was at the alanna. Will retract the ETT by 3cm, to reflect 21cm at the lips. Attending Dr. Joe was present for the entire procedure. The patient tolerated the procedure well and there were no complications. Trina Copeland, PGY-2
--- NOTE | 2024-09-16 14:31 | PC.SS ---
Update: Patient has been intubated.
--- NOTE | 2024-09-16 14:31 | PC.PT ---
Patient will be D/C from PT services 2/ patient has transferred into the ICU.
--- NOTE | 2024-09-16 14:31 | PC.SS ---
BOOKING CLERK confirmed with patient's medical surrogate decision maker, Maggy Romero; code status transition to DNR. BOOKING CLERK updated ICU resident.
--- NOTE | 2024-09-16 14:53 | PC.SS ---
Patient's sister, Maggy Romero; requesting karate black belt to come to patient's bedside to provide last rites. CHANGE MANAGEMENT MANAGER contacted outpatient receptionistjim Arias to provide update on request. Chaplain Arias to reach out to [facility] to submit request.
[2024-09-16 15:41] LABS: Base Excess -4 (-3-3); HCO3 21 mEq/L (20-26); Inspired Oxygen, FIO2 100 %; O2 Saturation 101 % (91-98); PCO2 40 mmHg (32.0-48.0); PO2 240 mmHg (83-108); pH, Arterial 7.34 (7.35-7.45)
[2024-09-16 15:46] LABS: Allen Test Performed/OK; Puncture Site Left Radial
[2024-09-16] MEDS: CITRIC ACID/SODIUM CITR 15 ML UDC (BICITRA) 30 ML NG (16:47)
[2024-09-16] MEDS: PANTOPRAZOLE INJ 40 MG VIAL IVP (16:48)
[2024-09-16] MEDS: VASOPRESSIN IN NS IVPB 20 UNIT/100 ML BAG 9 UNIT IV (16:52)
[2024-09-16] MEDS: GLYCOPYRROLATE INJ 0.2 MG/ML VIAL IV (16:58)
[2024-09-16 17:12] LABS: Alanine Aminotransferase 53 U/L (10-49); Albumin, Serum 2.3 gm/dL (3.4-4.8); Albumin/Globulin Ratio 0.8 (1.2-2.2); Alkaline Phosphatase 114 U/L (46-116); Anion Gap 13 (7-16); Aspartate Amino Transferase 97 U/L (0-34); BUN/Creatinine Ratio 17 Ratio (12-20); Blood Urea Nitrogen 62 mg/dL (9-23); Calcium 8.8 mg/dL (8.3-10.6); Calcium (Corrected) 10.2 mg/dL (8.5-10.1); Carbon Dioxide 21.2 mMol/L (20.0-31.0); Chloride 108 mMol/L (98-107); Creatinine (Component) 3.7 mg/dL (0.6-1.3); Estimated Creatinine Clearance 17.5 mL/min (>60); Glucose 86 mg/dL (74-106); Osmolality,Calculated 299 (275-295); Phosphorous 5.5 mg/dL (2.4-5.1); Potassium 3.3 mMol/L (3.4-5.1); Sodium 142 mMol/L (136-145); Total Protein 5.3 gm/dL (5.7-8.2); eGFR 16 See Note
[2024-09-16 17:32] LABS: Bilirubin,Total 23.6 mg/dL (0.3-1.2)
--- NOTE | 2024-09-16 20:11 | PD.IMPROG ---
Documentation for date of: 09/16/24 Subjective Subjective Interval history: Patient moved to the ICU because became more obtunded requiring endotracheal intubation mechanical ventilation WBC count is 16.8 hemoglobin over 8.7 and 26.2 with a BUN/creatinine 62 and 3.7 total bilirubin 23.6. AST ALT 2 97 and 53 and alk phos of 140 Exam Vital Signs Temp Pulse Resp BP Pulse Ox O2 Del Method O2 Flow Rate 98.2 F 53 L 20 124/66 100 Mechanical Ventilation 3 09/16/24 16:35 09/16/24 19:00 09/16/24 19:00 09/16/24 19:00 09/16/24 19:00 09/16/24 19:00 09/16/24 12:00 FiO2 80 09/16/24 18:34 Objective Labs 09/16/24 04:40 09/16/24 16:27 Labs: Laboratory Results - last 24 hr 09/12/24 09/14/24 09/16/24 11:15 17:14 04:40 WBC 16.8 H D RBC 2.68 L Hgb 8.7 L Hct 26.2 L MCV 98 MCH 32.5 MCHC 33.2 RDW Std Deviation 72.2 H Plt Count 81 L D Neut % (Auto) 81 H Lymph % (Auto) 6 L [place] % (Auto) 11 Eos % (Auto) 1 Baso % (Auto) 0 Neut # (Auto) 13.6 H Lymph # (Auto) 1.0 [place] # (Auto) 1.9 H Eos # (Auto) 0.1 Baso # (Auto) 0.0 Immature Gran # (Auto) 0.17 H Absolute Nucleated RBC 0.00 Immature Gran % 1 H Nucleated RBC % 0 PT > 63.0 H* D INR Puncture Site ABG pH ABG pCO2 ABG pO2 ABG HCO3 ABG O2 Saturation ABG Base Excess Oxygen Liter Flow FiO2 Sodium 141 Potassium 3.9 D Chloride 108 H Carbon Dioxide 22.0 Anion Gap 11 BUN 61 H Creatinine 3.1 H D Estim Creat Clear Calc 20.9 L eGFR 20 L BUN/Creatinine Ratio 20 Glucose 70 L Calculated Osmolality 296 H Lactic Acid Calcium 8.9 Corrected Calcium 10.0 Phosphorus 6.0 H Magnesium 2.4 Total Bilirubin 25.2 H* D AST 117 H ALT 66 H Alkaline Phosphatase 119 H Total Protein 5.7 Albumin 2.6 L Globulin 3.1 Albumin/Globulin Ratio 0.8 L EBV Capsid Ag IgG Ab >750.00 H EBV Capsid Ag IgM Ab <36.00 EBV Nuclear Ag IgG Ab >600.00 H EBV Antibody Interp PAST Blood Type O Positive Antibody Screen POSITIVE Antibody Identification Anti-E Crossmatch See Detail Blood Bank Wristband ID Yes Blood Bank Comment FFP Ready 09/16/24 09/16/24 09/16/24 10:44 10:57 15:20 WBC RBC Hgb Hct MCV MCH MCHC RDW Std Deviation Plt Count Neut % (Auto) Lymph % (Auto) [place] % (Auto) Eos % (Auto) Baso % (Auto) Neut # (Auto) Lymph # (Auto) [place] # (Auto) Eos # (Auto) Baso # (Auto) Immature Gran # (Auto) Absolute Nucleated RBC Immature Gran % Nucleated RBC % PT INR Puncture Site Right Radial Left Radial ABG pH 7.27 L 7.34 L ABG pCO2 48 40 ABG pO2 88 240 H D ABG HCO3 22 21 ABG O2 Saturation 96 101 H ABG Base Excess -5 L -4 L Oxygen Liter Flow 3 FiO2 100 Sodium Potassium Chloride Carbon Dioxide Anion Gap BUN Creatinine Estim Creat Clear Calc eGFR BUN/Creatinine Ratio Glucose Calculated Osmolality Lactic Acid 2.0 Calcium Corrected Calcium Phosphorus Magnesium Total Bilirubin AST ALT Alkaline Phosphatase Total Protein Albumin Globulin Albumin/Globulin Ratio EBV Capsid Ag IgG Ab EBV Capsid Ag IgM Ab EBV Nuclear Ag IgG Ab EBV Antibody Interp Blood Type Antibody Screen Antibody Identification Crossmatch Blood Bank Wristband ID Blood Bank Comment 09/16/24 16:27 WBC RBC Hgb Hct MCV MCH MCHC RDW Std Deviation Plt Count Neut % (Auto) Lymph % (Auto) [place] % (Auto) Eos % (Auto) Baso % (Auto) Neut # (Auto) Lymph # (Auto) [place] # (Auto) Eos # (Auto) Baso # (Auto) Immature Gran # (Auto) Absolute Nucleated RBC Immature Gran % Nucleated RBC % PT INR Puncture Site ABG pH ABG pCO2 ABG pO2 ABG HCO3 ABG O2 Saturation ABG Base Excess Oxygen Liter Flow FiO2 Sodium 142 Potassium 3.3 L D Chloride 108 H Carbon Dioxide 21.2 Anion Gap 13 BUN 62 H Creatinine 3.7 H D Estim Creat Clear Calc 17.5 L eGFR 16 L BUN/Creatinine Ratio 17 Glucose 86 Calculated Osmolality 299 H Lactic Acid Calcium 8.8 Corrected Calcium 10.2 H Phosphorus 5.5 H Magnesium Total Bilirubin 23.6 H* D AST 97 H ALT 53 H Alkaline Phosphatase 114 Total Protein 5.3 L Albumin 2.3 L Globulin 3.0 Albumin/Globulin Ratio 0.8 L EBV Capsid Ag IgG Ab EBV Capsid Ag IgM Ab EBV Nuclear Ag IgG Ab EBV Antibody Interp Blood Type Antibody Screen Antibody Identification Crossmatch Blood Bank Wristband ID Blood Bank Comment Impressions Impression: # Acute upper GI bleed secondary to mucosal oozing of blood # Posthemorrhagic anemia # CONNOR # hepatic encephalopathy # Sepsis # Mechanically ventilated Continue supportive care most likely will need dialysis ABG Interpretation ABG results: 08/28/24 08/29/24 09/03/24 22:40 10:05 15:24 ABG pH 7.41 7.50 H ABG pCO2 29 L 33 ABG pO2 69 L 63 L ABG HCO3 18 L 25 ABG O2 Saturation 94 94 ABG Base Excess -6 L 2 VBG pH 7.41 VBG pCO2 47 VBG pO2 30 VBG Base Excess 4 H 09/16/24 09/16/24 10:57 15:20 ABG pH 7.27 L 7.34 L ABG pCO2 48 40 ABG pO2 88 240 H D ABG HCO3 22 21 ABG O2 Saturation 96 101 H ABG Base Excess -5 L -4 L VBG pH VBG pCO2 VBG pO2 VBG Base Excess Assessment & Plan A&P Narrative # Acute upper GI bleed in the form of melena # Acute posthemorrhagic anemia # Acute hepatic encephalopathy # Chronic liver disease with thrombocytopenia abnormal liver function test and coagulopathy secondary to alcohol Plan Agree with the blood transfusion give patient 2 units of PRBC Octreotide infusion Lactulose and Xifaxan Consent will be obtained from the sister who makes that decision for fiberoptic esophagogastroduodenoscopy with possible therapeutic intervention under intravenous moderate sedation Prognosis guarded Thank you for the opportunity to participate in the care of this patient Time Spent With Patient Time: Total time spent is greater than 50% in coordination of care (as documented) at patient's floor/unit and/or counseling patient:
[2024-09-16] MEDS: LACTULOSE SYRUP 20 GM/30 ML UDC 30 GM NG (20:35)
[2024-09-16] MEDS: rifaximin 550 MG TABLET NG (20:37)
[2024-09-16] MEDS: POTASSIUM CHLORIDE 10% 20 MEQ/15 ML UDC 40 MEQ GT (21:15)
[2024-09-16] MEDS: MIDODRINE 5 MG TABLET 10 MG NG (21:16)
[2024-09-16] MEDS: OCTREOTIDE ACET INJ 1,000 MCG in SODIUM CHLORIDE 0.9% 100 ML 5.1 MCG IV (22:08)
[2024-09-17] VITALS (110 sets, daily range): BP systolic 79–128; BP diastolic 46–68; PULSE 43–63; RESP 7–24; TEMP 36–36.6; O2SAT 83–100; BMI 24.5
[2024-09-17] MEDS: Norepinephrine/D5W 8mg/250ml 8 MG/250 ML BAG 21.816 MG IV (01:16)
[2024-09-17] MEDS: VASOPRESSIN IN NS IVPB 20 UNIT/100 ML BAG 9 UNIT IV ×2 (01:45→13:22)
[2024-09-17 05:27] LABS: Base Excess -5 (-3-3); HCO3 22 mEq/L (20-26); Inspired Oxygen, FIO2 21 %; O2 Saturation 89 % (91-98); PCO2 46 mmHg (32.0-48.0); PO2 64 mmHg (83-108); pH, Arterial 7.29 (7.35-7.45)
[2024-09-17 05:32] LABS: Allen Test Not Performed; Puncture Site Site Not Noted
[2024-09-17] MEDS: MIDODRINE 5 MG TABLET 10 MG NG (05:59)
[2024-09-17] MEDS: LACTULOSE SYRUP 20 GM/30 ML UDC 30 GM NG ×4 (05:59→21:14)
[2024-09-17 06:09] LABS: Basophils % (Auto) 0 % (0-2.5); Eosinophils # (Auto) 0.2 Thou/mm3 (0.0-0.5); Eosinophils % (Auto) 1 % (0-10); Hematocrit 26.1 % (41.0-53.0); Immature Granulocytes % (Auto) 1 % (0-0); Immature Granulocytes Auto 0.15 Thou/mm3 (0.00-0.00); Lymphocytes # (Auto) 1.4 Thou/mm3 (1.0-4.8); Lymphocytes % (Auto) 6 % (10-50); Mean Corpuscular HGB Conc 32.6 g/dl (31.0-37.0); Mean Corpuscular Hemoglobin 31.8 pg (25.0-35.0); Mean Corpuscular Volume 98 fL (80-100); Monocytes # (Auto) 2.1 Thou/mm3 (0.0-0.8); Monocytes % (Auto) 9 % (0-12); Neutrophils # (Auto) 18.7 Thou/mm3 (1.8-7.7); Neutrophils % (Auto) 83 % (37-80); Nucleated Red Blood Cell # 0.03 Thou/mm3 (0.00-0.00); Nucleated Red Blood Cell % 0 /100 WBC (0); RDW Standard Deviation 72.4 fL (35.1-43.9); Red Blood Count 2.67 Miln/mm3 (4.50-5.90)
[2024-09-17 06:19] LABS: Hemoglobin 8.5 g/dL (13.5-16.0); Platelet Count 53 Thou/mm3 (140-440); White Blood Count 22.6 Thou/mm3 (3.8-10.6)
[2024-09-17 06:32] LABS: Slide Review Platelets confirmed
[2024-09-17 06:35] LABS: Alanine Aminotransferase 63 U/L (10-49); Albumin, Serum 2.6 gm/dL (3.4-4.8); Albumin/Globulin Ratio 0.8 (1.2-2.2); Alkaline Phosphatase 132 U/L (46-116); Anion Gap 14 (7-16); Aspartate Amino Transferase 113 U/L (0-34); BUN/Creatinine Ratio 17 Ratio (12-20); Blood Urea Nitrogen 62 mg/dL (9-23); Calcium 9.3 mg/dL (8.3-10.6); Calcium (Corrected) 10.4 mg/dL (8.5-10.1); Carbon Dioxide 21.1 mMol/L (20.0-31.0); Chloride 108 mMol/L (98-107); Creatinine (Component) 3.6 mg/dL (0.6-1.3); Globulin 3.3 gm/dL (2.3-3.5); Glucose 86 mg/dL (74-106); Magnesium 2.3 mg/dL (1.6-2.6); Osmolality,Calculated 301 (275-295); Phosphorous 5.7 mg/dL (2.4-5.1); Potassium 3.7 mMol/L (3.4-5.1); Sodium 143 mMol/L (136-145); Total Protein 5.9 gm/dL (5.7-8.2); eGFR 17 See Note
[2024-09-17 06:37] LABS: Bilirubin,Total 26.7 mg/dL (0.3-1.2)
[2024-09-17 06:59] LABS: CMV Antibody (IgG) >10.00 U/mL; CMV Antibody (IgM) <30.00 AU/mL; HSV2 IgG Type Specific Ab* 3.07 INDEX
[2024-09-17] MEDS: CITRIC ACID/SODIUM CITR 15 ML UDC (BICITRA) 30 ML NG (09:13)
[2024-09-17] MEDS: SEVELAMER CARBONATE 0.8 GM PACKET (NON-FORMULARY) NG ×3 (09:13→17:14)
[2024-09-17] MEDS: THIAMINE 100 MG TABLET NG (09:14)
[2024-09-17] MEDS: PHYTONADIONE INJ 10 MG/ML AMP SC (09:14)
[2024-09-17] MEDS: FOLIC ACID 1 MG TABLET NG (09:14)
[2024-09-17] MEDS: rifaximin 550 MG TABLET NG ×2 (09:14→21:15)
[2024-09-17] MEDS: PIPER/TAZO INJ 3.375 GM in SODIUM CHLORIDE 0.9% (Popper) 50 ML IV ×2 (09:15→21:15)
[2024-09-17] MEDS: Norepinephrine/D5W 8mg/250ml 8 MG/250 ML BAG 25.172 MG IV (12:24)
--- NOTE | 2024-09-17 14:48 | PC.SS ---
LUNCHROOM WORKER confirmed with patient's sister, Maggy Romero; that patient's daughter Ca has declined to be assigned patient's medical surrogate decision maker. LUNCHROOM WORKER confirmed that flowern's sister, Maggy Romero; will continue to serve as patient's medical surogate decision maker. LUNCHROOM WORKER updated charge nurse and ICU resident.
--- NOTE | 2024-09-17 14:53 | ESPR_ITS ---
Documentation for date of: 09/17/24 Subjective Subjective Interval history: Chart review done. Mr. Stack is a 74-year-old male with past medical history of liver cirrhosis secondary to alcohol use disorder, esophageal varices, ?Asthma/COPD, GERD, anxiety and BPH presented to [facility] on 08/28/2024 with a chief complaint of altered mental status. per EMS patient was found to be naked and altered. Noted to have dark blood all over the floor. During the hospital course patient had a GI bleed and was seen by Dr. Hall. Also noted to have metabolic encephalopathy-lactulose, rifaximin were initiated. For the last 24 hours his urine output has dropped significantly and renal consultation was requested. CT brain was negative. 09/08/2024 patient currently seen in telemetry.His current medications included folic acid, lactulose, Protonix, propranolol, rifaximin, thiamine.WBC 11.9, hemoglobin 9.5, platelets 131. Sodium 137, potassium 3.3, BUN 43, creatinine 2.9, calcium 9, phosphorus 3.9, total bilirubin 15.2, AST 132, ALT 53, albumin 1.7. Urine showed concentrated urine with blood and bilirubin. Urine sodium less than 15. Talk screen was negative. Hep panel showed AB and AB-. Hep C positive. Renal ultrasound this afternoon showed no hydronephrosis. No cortical thinning consistent with normal kidneys. Head CT on admission was negative. 09/09/2024 patient currently seen in telemetry. Today he seems to be more alert and awake. Last night hospitalist team called-patient complaining of abdominal pain and shortness of breath. Chest x-ray showed dilated bowel loops. Recommended KUB which showed ileus-NG tube was inserted overnight. Patient currently seems to be feeling little bit better. Denies any abdominal pain. Hemoglobin 9, platelets 109, WBC 11, sodium 137, potassium 3.4, BUN 44, creatinine 3.6, GFR 17, bilirubin significantly elevated to 19, AST 113, ALT 48, alk phos 155, albumin 2.1 urine sodium less than 15 urine output 225 mL/day Noted team started the patient on steroids. Patient has a decompensated liver cirrhosis. Hep C positive. Viral load pending. Dr. Hall on the case. Patient currently on albumin, midodrine, normal saline to rule out hepatorenal syndrome. Will continue the same for another 24 hours. If no improvement then HRS 1 diagnosis will be made 09/10/2024 patient currently seen in telemetry. He is having breakfast. Denies any chest pain, shortness of breath. More alert and awake. Made 500 mL urine last night. Blood sugar 109. Blood pressure 100/53, heart rate 69. WBC 12.3, hemoglobin 8.2, platelets 94. Sodium 137, potassium 3.4, bicarbonate 18.8, BUN 56, creatinine 3.9, glucose 133, calcium 9.1, phosphorus 5.1, magnesium 2.6, total bilirubin 20.9, AST 53, ALT 43, alk phos 133, albumin 2.4. He is currently on midodrine, normal saline at 125 mL/h, albumin 3 times daily, rifaximin. 09/14/2024 patient currently seen in telemetry. Labs, medications reviewed. Creatinine still elevated. BUN, bilirubin significantly elevated. Spoke to Dr. Coulter-continue with prn diuretics. Continue with albumin, rifaximin, midodrine, octreotide. Patient seems to be going towards hepatorenal syndrome I versus ATN. Did talk to the patient yesterday that if no improvement in renal function will plan for renal replacement therapy on Sunday. He agreed. Family requested all aggressive measures including dialysis if needed. Noted transfer was denied by [facility]. He seems to be slightly confused today. 09/15/2024 Patient currently seen in telemetry. He seems to be slightly awake and alert today. Patient made 1600 ml urine. Creatinine stable at 3.6. Hold off on dialysis today. Spoke to Dr. Coulter-gentle IV fluids will be given today. Patient in the negative balance. Clinically looks rather dehydrated. Medications and labs reviewed. 09/16/2024 Patient currently seen in telemetry. This morning he seems to be slow in response. Significant jaundice noted. Creatinine improved to 3.1. Urine output overnight more than [address] Coulter-will do gentle IV fluids. Patient not taking his lactulose. Dr. Coulter planning to place a rectal tube with the lactulose pr. 09/17/2024 patient currently seen in ICU. Currently on pressors. Urine output started to decrease. Patient currently on ventilator. Labs, medications reviewed. ICU team placed Vas-Cath. Will discuss with family regarding poor prognosis and not a candidate for outpatient dialysis. If patient's family still requesting all aggressive measures-will proceed with dialysis in the next 12 to 24 hours. Review of Systems Review of Systems ROS Unobtainable: due to endotracheal tube Narrative Review of Systems: Exam Vital Signs Temp Pulse Resp BP Pulse Ox O2 Del Method O2 Flow Rate 36.0 C 51 L 17 98/54 L 95 Mechanical Ventilation 3 09/17/24 12:00 09/17/24 14:32 09/17/24 10:55 09/17/24 14:32 09/17/24 14:32 09/17/24 12:00 09/16/24 12:00 FiO2 30 09/17/24 14:32 Narrative Exam GENERAL APPEARANCE patient currently seen in ICU. On vent NECK: Neck supple, no JVD or bruit CARDIOVASCULAR: Heart regular, no murmurs LUNGS/CHEST: Few rhonchi noted bilaterally ABDOMEN: Distended with good bowel sounds. EXTREMITIES: 2+ edema noted in the extremities SKIN: Jaundiced MUSCULOSKELETAL: In bed NEUROLOGICAL : Intubated, sedated Objective Labs 09/18/24 04:37 09/18/24 04:37 Labs: Laboratory Results - last 24 hr 09/12/24 09/16/24 09/16/24 11:15 15:20 16:27 WBC RBC Hgb Hct MCV MCH MCHC RDW Std Deviation Plt Count Neut % (Auto) Lymph % (Auto) [place] % (Auto) Eos % (Auto) Baso % (Auto) Neut # (Auto) Lymph # (Auto) [place] # (Auto) Eos # (Auto) Baso # (Auto) Immature Gran # (Auto) Absolute Nucleated RBC Immature Gran % Nucleated RBC % Puncture Site Left Radial ABG pH 7.34 L ABG pCO2 40 ABG pO2 240 H D ABG HCO3 21 ABG O2 Saturation 101 H ABG Base Excess -4 L FiO2 100 Sodium 142 Potassium 3.3 L D Chloride 108 H Carbon Dioxide 21.2 Anion Gap 13 BUN 62 H Creatinine 3.7 H D Estim Creat Clear Calc 17.5 L eGFR 16 L BUN/Creatinine Ratio 17 Glucose 86 Calculated Osmolality 299 H Calcium 8.8 Corrected Calcium 10.2 H Phosphorus 5.5 H Magnesium Total Bilirubin 23.6 H* D AST 97 H ALT 53 H Alkaline Phosphatase 114 Total Protein 5.3 L Albumin 2.3 L Globulin 3.0 Albumin/Globulin Ratio 0.8 L CMV IgG Ab >10.00 H CMV IgM Ab <30.00 HSV I IgG Ab 27.50 H HSV II IgG 3.07 H Misc Test Result See Sep Rpt 09/17/24 09/17/24 05:00 05:09 WBC 22.6 H D RBC 2.67 L Hgb 8.5 L Hct 26.1 L MCV 98 MCH 31.8 MCHC 32.6 RDW Std Deviation 72.4 H Plt Count 53 L D Neut % (Auto) 83 H Lymph % (Auto) 6 L [place] % (Auto) 9 Eos % (Auto) 1 Baso % (Auto) 0 Neut # (Auto) 18.7 H Lymph # (Auto) 1.4 [place] # (Auto) 2.1 H Eos # (Auto) 0.2 Baso # (Auto) 0.0 Immature Gran # (Auto) 0.15 H Absolute Nucleated RBC 0.03 H Immature Gran % 1 H Nucleated RBC % 0 Puncture Site Site Not Noted ABG pH 7.29 L ABG pCO2 46 ABG pO2 64 L D ABG HCO3 22 ABG O2 Saturation 89 L ABG Base Excess -5 L FiO2 21 Sodium 143 Potassium 3.7 Chloride 108 H Carbon Dioxide 21.1 Anion Gap 14 BUN 62 H Creatinine 3.6 H Estim Creat Clear Calc 18.0 L eGFR 17 L BUN/Creatinine Ratio 17 Glucose 86 Calculated Osmolality 301 H Calcium 9.3 Corrected Calcium 10.4 H Phosphorus 5.7 H Magnesium 2.3 Total Bilirubin 26.7 H* D AST 113 H ALT 63 H Alkaline Phosphatase 132 H Total Protein 5.9 Albumin 2.6 L Globulin 3.3 Albumin/Globulin Ratio 0.8 L CMV IgG Ab CMV IgM Ab HSV I IgG Ab HSV II IgG Misc Test Result Platelets confirmed ABG Interpretation ABG results: 08/28/24 08/29/24 09/03/24 22:40 10:05 15:24 ABG pH 7.41 7.50 H ABG pCO2 29 L 33 ABG pO2 69 L 63 L ABG HCO3 18 L 25 ABG O2 Saturation 94 94 ABG Base Excess -6 L 2 VBG pH 7.41 VBG pCO2 47 VBG pO2 30 VBG Base Excess 4 H 09/16/24 09/16/24 09/17/24 10:57 15:20 05:09 ABG pH 7.27 L 7.34 L 7.29 L ABG pCO2 48 40 46 ABG pO2 88 240 H D 64 L D ABG HCO3 22 21 22 ABG O2 Saturation 96 101 H 89 L ABG Base Excess -5 L -4 L -5 L VBG pH VBG pCO2 VBG pO2 VBG Base Excess Assessment & Plan Assessment and plan (1) Acute renal failure (ARF): Status: Acute (2) Acute upper gastrointestinal bleeding: Status: Acute (3) Cirrhosis of liver: Status: Acute (4) Hepatic encephalopathy: Status: Acute (5) Anemia: Status: Acute Additional Assessment & Plan Additional Plan: (1) Acute renal failure (ARF): Status: Acute Assessment and plan: Acute renal failure with worsening renal function and decreased urine output- rule out hepatorenal syndrome versus prerenal azotemia// ATN with fluctuations in blood pressure. Patient was given as needed diuretics. Currently on rifaximin, albumin, midodrine, octreotide. 09/17/2024 Vas-Cath placed by ICU team. Will discuss with family regarding poor prognosis. Patient not a liver transplant candidate. Despite dialysis outcomes seems dismal. Worsening liver failure. Family requesting all aggressive measures we will proceed with dialysis in the next 12 to 24 hours. Critical care time spent more than 35 minutes regarding plan of care and disease management. (2) Acute upper gastrointestinal bleeding: Status: Acute Assessment and plan: Dr. Hall on the case. On PPI (3) Cirrhosis of liver: Status: Acute Assessment and plan: Patient seems to have decompensated liver cirrhosis with GI bleed, varices, hepatic encephalopathy, worsening renal function, thrombocytopenia, anemia. GI on the case. On lactulose, rifaximin patient has a prolonged hospital course for the last couple of weeks Patient did receive steroids. Patient received couple of doses of NAC. (4) Hepatic encephalopathy: Status: Acute Assessment and plan: On lactulose- on vent (5) Anemia: Status: Acute Assessment and plan: As needed transfusions Plan of care discussed with ICU team. Quality - progress note Quality Measures Quality Measures: VTE prophylaxis Reason for Continued Stay Reason for Continued Stay: further monitoring
--- NOTE | 2024-09-17 15:14 | ESPR_ITS ---
Documentation for date of: 09/17/24 Subjective Subjective Interval history: Abdifatah Stack is a 74-year-old male with past medical history of HCV, alcoholic cirrhosis, esophageal varices, GERD, anxiety, and BPH who presented on 08/28 with AMS [facility]. During hospital course, received EGD on 09/01 which showed grade 1 varices (not large enough for band ligation), hemorrhagic gastritis, and hypertensive portal gastropathy with mucosal oozing as source of bleeding. Over past couple of days, noted to become more encephalopathic and developed worsening respiratory failure and required intubation and subsequently upgraded to ICU on 09/16. 09/17: Seen and examined at bedside in ICU. No acute overnight events reported. Patient's daughter, Ca, has declined to be assigned patient's medical surrogate decision-maker and will instead be patient's sister, Maggy. Sister states that she would like to pursue treatment at this time including dialysis and paracentesis. ABG showed pH 7.29, pCO2 46, P O2 64. Per Gunderson formula, expected pCO2 38-42 and so will increase VT from 400 to 420 and follow-up ABG showed improvement as pH increased from 7.29 to 7.33 and pCO2 decreased from 46 to 41. Exam Vital Signs Temp Pulse Resp BP Pulse Ox O2 Del Method O2 Flow Rate 96.8 F 51 L 17 98/54 L 95 Mechanical Ventilation 3 09/17/24 12:00 09/17/24 14:32 09/17/24 10:55 09/17/24 14:32 09/17/24 14:32 09/17/24 12:00 09/16/24 12:00 FiO2 30 09/17/24 14:32 Narrative Exam General: intubated, sedated, mechanically ventilated HEENT: scleral icterus, pupils non-reactive to light, NC/AT, mucous membranes moist Cardiovascular: regular rate and rhythm, S1/S2 present, no murmurs appreciated Pulmonary: decreased right-sided breath sounds Abdominal: distended, firm Musculoskeletal: normal ROM, no peripheral edema Skin: jaundiced, warm and dry, intact, no rashes Neuro: GCS 3T Objective Labs 09/24/24 09:06 09/24/24 04:44 Labs: Laboratory Results - last 24 hr 09/12/24 09/16/24 09/16/24 11:15 15:20 16:27 WBC RBC Hgb Hct MCV MCH MCHC RDW Std Deviation Plt Count Neut % (Auto) Lymph % (Auto) [place] % (Auto) Eos % (Auto) Baso % (Auto) Neut # (Auto) Lymph # (Auto) [place] # (Auto) Eos # (Auto) Baso # (Auto) Immature Gran # (Auto) Absolute Nucleated RBC Immature Gran % Nucleated RBC % Puncture Site Left Radial ABG pH 7.34 L ABG pCO2 40 ABG pO2 240 H D ABG HCO3 21 ABG O2 Saturation 101 H ABG Base Excess -4 L FiO2 100 Sodium 142 Potassium 3.3 L D Chloride 108 H Carbon Dioxide 21.2 Anion Gap 13 BUN 62 H Creatinine 3.7 H D Estim Creat Clear Calc 17.5 L eGFR 16 L BUN/Creatinine Ratio 17 Glucose 86 Calculated Osmolality 299 H Calcium 8.8 Corrected Calcium 10.2 H Phosphorus 5.5 H Magnesium Total Bilirubin 23.6 H* D AST 97 H ALT 53 H Alkaline Phosphatase 114 Total Protein 5.3 L Albumin 2.3 L Globulin 3.0 Albumin/Globulin Ratio 0.8 L CMV IgG Ab >10.00 H CMV IgM Ab <30.00 HSV I IgG Ab 27.50 H HSV II IgG 3.07 H Misc Test Result See Sep Rpt 09/17/24 09/17/24 05:00 05:09 WBC 22.6 H D RBC 2.67 L Hgb 8.5 L Hct 26.1 L MCV 98 MCH 31.8 MCHC 32.6 RDW Std Deviation 72.4 H Plt Count 53 L D Neut % (Auto) 83 H Lymph % (Auto) 6 L [place] % (Auto) 9 Eos % (Auto) 1 Baso % (Auto) 0 Neut # (Auto) 18.7 H Lymph # (Auto) 1.4 [place] # (Auto) 2.1 H Eos # (Auto) 0.2 Baso # (Auto) 0.0 Immature Gran # (Auto) 0.15 H Absolute Nucleated RBC 0.03 H Immature Gran % 1 H Nucleated RBC % 0 Puncture Site Site Not Noted ABG pH 7.29 L ABG pCO2 46 ABG pO2 64 L D ABG HCO3 22 ABG O2 Saturation 89 L ABG Base Excess -5 L FiO2 21 Sodium 143 Potassium 3.7 Chloride 108 H Carbon Dioxide 21.1 Anion Gap 14 BUN 62 H Creatinine 3.6 H Estim Creat Clear Calc 18.0 L eGFR 17 L BUN/Creatinine Ratio 17 Glucose 86 Calculated Osmolality 301 H Calcium 9.3 Corrected Calcium 10.4 H Phosphorus 5.7 H Magnesium 2.3 Total Bilirubin 26.7 H* D AST 113 H ALT 63 H Alkaline Phosphatase 132 H Total Protein 5.9 Albumin 2.6 L Globulin 3.3 Albumin/Globulin Ratio 0.8 L CMV IgG Ab CMV IgM Ab HSV I IgG Ab HSV II IgG Misc Test Result Platelets confirmed ABG Interpretation ABG results: 08/28/24 08/29/24 09/03/24 22:40 10:05 15:24 ABG pH 7.41 7.50 H ABG pCO2 29 L 33 ABG pO2 69 L 63 L ABG HCO3 18 L 25 ABG O2 Saturation 94 94 ABG Base Excess -6 L 2 VBG pH 7.41 VBG pCO2 47 VBG pO2 30 VBG Base Excess 4 H 09/16/24 09/16/24 09/17/24 10:57 15:20 05:09 ABG pH 7.27 L 7.34 L 7.29 L ABG pCO2 48 40 46 ABG pO2 88 240 H D 64 L D ABG HCO3 22 21 22 ABG O2 Saturation 96 101 H 89 L ABG Base Excess -5 L -4 L -5 L VBG pH VBG pCO2 VBG pO2 VBG Base Excess Quality Measures Quality Measures none Advance care planning discussed with:: sibling Assessment & Plan Assessment Current Active Medications: Generic Name Dose Route Start Last Admin Trade Name Freq PRN Reason Stop Dose Admin Albuterol/Ipratropium 3 ml 08/28/24 20:24 09/12/24 19:57 Albuterol/Ipratropium (Duoneb) Rt Janessa 3 Ml Nebu INH 09/27/24 22:59 3 ml Q4HRRT PRN Administration Wheeze Citric Acid/Sodium Citrate 30 ml 09/16/24 16:00 09/17/24 09:13 Citric Acid/Sodium Citr 15 Ml Udc (Bicitra) NG 10/16/24 15:59 30 ml DAILY JERSON Administration Dextrose 25 ml 09/15/24 06:05 09/16/24 05:12 Dextrose 50%-Water Inj 50 Ml Syringe IV 10/15/24 06:04 25 ml Q15MIN PRN Administration BG 50-70 responsive npo pt Dextrose 50 ml 09/15/24 06:05 09/16/24 11:31 Dextrose 50%-Water Inj 50 Ml Syringe IV 10/15/24 06:04 50 ml Q15MIN PRN Administration BG <50 OR BG <70 & pt unresponsive Folic Acid 1 mg 09/17/24 09:00 09/17/24 09:14 Folic Acid 1 Mg Tablet NG 10/17/24 08:59 1 mg QDAY JERSON Administration Glucagon 1 mg 09/15/24 06:05 Glucagon Inj 1 Mg Vial IM Q15MIN PRN BG <70, and no IV access Piperacillin Sod/Tazobactam 50 mls @ 12.5 mls/hr 09/12/24 09:00 09/17/24 13:29 Sod 3.375 gm/ Sodium Chloride IV 09/19/24 08:59 Infused Q12HR JERSON Infusion Octreotide Acetate 1,000 mcg/ 102 mls @ 5.1 mls/hr 09/13/24 11:38 09/16/24 22:08 Sodium Chloride IV 09/18/24 11:38 50 mcg/hr .Q20H JERSON 5.1 mls/hr Administration Protocol 50 MCG/HR Propofol 1,000 mg in 100 mls @ 2.685 mls/hr 09/16/24 13:43 09/16/24 18:21 Diprivan Ivpb IV 10/16/24 13:42 0 mcg/kg/min .Q24H PRN 0 mls/hr PER PROTOCOL Titration Protocol 5 MCG/KG/MIN Fentanyl Citrate 2,500 mcg in 250 mls @ 2.5 mls/hr 09/16/24 13:44 09/17/24 13:00 Sublimaze Inj 2,500 Mcg/250 Ml Bag IV 09/21/24 13:43 125 mcg/hr .Q24H PRN 12.5 mls/hr PER PROTOCOL Titration Protocol 25 MCG/HR Norepinephrine/Dextrose 8 mg in 250 mls @ 8.391 mls/hr 09/16/24 14:28 09/17/24 13:00 Levophed In D5w 8mg/250ml IV 10/16/24 13:34 0.15 mcg/kg/min .Q24H PRN 25.172 mls/hr PER PROTOCOL Titration Protocol 0.05 MCG/KG/MIN Vasopressin/Sodium Chloride 20 unit in 100 mls @ 9 mls/hr 09/16/24 16:43 09/17/24 13:22 Vasostrict/Ns Ivpb IV 10/16/24 16:42 0.03 unit/min .Q11H7M PRN 9 mls/hr PER PROTOCOL Administration Protocol 0.03 UNIT/MIN Lactulose 30 gm 09/16/24 20:08 09/17/24 12:22 Lactulose Syrup 20 Gm/30 Ml Udc NG 10/16/24 18:59 30 gm QID JERSON Administration Protocol Phytonadione 10 mg 09/16/24 10:00 09/17/24 09:14 Phytonadione Inj 10 Mg/Ml Amp SC 09/19/24 09:59 10 mg QDAY JERSON Administration Propranolol HCl 10 mg 09/16/24 21:00 Propranolol 10 Mg Tablet NG 10/16/24 20:59 BID JERSON Rifaximin 550 mg 09/16/24 21:00 09/17/24 09:14 Rifaximin 550 Mg Tablet NG 09/23/24 20:59 550 mg BID JERSON Administration Sevelamer Carbonate 0.8 gm 09/17/24 08:00 09/17/24 12:22 Sevelamer Carbonate 0.8 Gm Packet (Non-Formulary) NG 10/17/24 07:59 0.8 gm TIDWM JERSON Administration Protocol Sodium Chloride 5 ml 08/28/24 17:29 08/28/24 18:47 Sodium Chloride Rt Janessa 0.9% 3 Ml Nebu INH 09/27/24 17:28 3 ml PRN PRN Administration SOLN Thiamine HCl 100 mg 09/17/24 09:00 09/17/24 09:14 Thiamine 100 Mg Tablet NG 10/17/24 08:59 100 mg QDAY JERSON Administration Plan Abdifatah Stack is a 74-year-old male with past medical history of HCV, alcoholic cirrhosis, esophageal varices, GERD, anxiety, and BPH who presented on 08/28 with AMS after being found by caregiver in [facility] of dark-colored blood. During hospital course, received EGD on 09/01 which showed grade 1 varices (not large enough for band ligation), hemorrhagic gastritis, and hypertensive portal gastropathy with mucosal oozing as source of bleeding. Over past couple of days, noted to become more encephalopathic and developed worsening respiratory failure and required intubation and subsequently upgraded to ICU on 09/16. Neurological #Acute encephalopathy, likely hepatic/metabolic Baseline, conversational and oriented x 3. On admission, encephalopathic and A&O x 0 that improved throughout hospitalization. However, throughout last couple of days was noted to become more encephalopathic. Repeat CT head on 09/16: Negative for acute hemorrhage, mass effect, or midline shift Ammonia 54, BUN 61, ABG showed pH 7.27. ? Lactulose 30 g 4 times daily ? Rifaximin 550 mg twice daily ? Aspiration precautions, head of bed elevation Cardiovascular #Shock, hypovolemic due to third spacing in setting of cirrhosis vs distributive (septic) History of cirrhosis with prominent ascites seen on CT A/P on 09/16. ? Levophed ? Vasopressin #Bradycardia, in setting of propofol Pulmonary #Acute respiratory failure requiring intubation GCS 6 and respiratory distress prior to intubation ? Vent settings: VT 400, RR 20, PEEP 5, FiO2 30% changed to VT 420 ? ABG in a.m. showed pH 7.29, pCO2 46, pO2 64 #Aspiration pneumonia, resolved With AMS and CXR showed large right-sided pleural effusion. Completed 7 days of Augmentin (08/30 to 09/06). #History of COPD Home medication Trelegy inhaler ? DuoNebs as needed Gastrointestinal #Acute blood loss anemia secondary to GI bleed, resolved #Esophageal varices, resolved Found unconscious in a pool of coffee-ground emesis On admission patient's Hb 7.6 and he received 2 units PRBC. Post H&H 7.4 Currently Hb 8.9, Hct 26.8 ? Continue to monitor daily H&H #Acute on chronic liver failure with coagulopathy and thrombocytopenia #Portal hypertension with esophageal varices, hypertensive portal gastropathy and ascites #Hyperbilirubinemia CMV IgG positive, IgM negative. EBV IgG positive, IgM negative. HAV negative, HBV antigen nonreactive. HCV antibody reactive, RNA negative. HSV I/II IgG positive, HIV negative. EGD: diffuse hypertensive portal gastropathy with mucosal oozing of blood and 1+ esophageal varices not large enough for band ligation. Abdominal US on 09/11: gallbladder sludge, gallbladder wall thickened 0.5 cm, cirrhosis and mild ascites. Meld?NA score 38 points -> 65-66% 90-day mortality Child?Hernandez class C, 12 points -> life expectancy 1-3 years, abdominal surgery mortality 82% Madrey score 42 -> may benefit from steroids Completed N-acetylcysteine IV daily on 09/13 for acute on chronic liver failure Completed 3 days of Phytonadione 10 mg SC daily ffrom 09/10-09/13 ? Paracentesis on 09/18 Renal #Respiratory acidosis #Non anion gap metabolic acidosis Grunting and responsive to pain only. Had 1 bowel movements in the past 48 hours. ? Lactulose and rifaxamin as above ? Aspiration precautions, head of bed elevation ? Continue Bicitra #Acute kidney injury, likely prerenal in setting of cirrhosis (hepatorenal syndrome) #Anasarca Baseline Cr 0.5 Urine creatinine 216, urine random protein 100, urine sodium <15, urine potassium 50, urine chloride <20 Renal US 09/08: no hydronephrosis, no significant cortical thinning ? Octreotide 09/13-09/18 ? Pressors as noted above ? Albumin ? Nephrology consulted, appreciate recommendations ? Dialysis planned tomorrow, 09/18 ? Renally dose medications and avoid nephrotoxic agents #Hyperphosphatemia K 3.9 Phosphorus 6 ? Dialysis planned for tomorrow ? F/u repeat labs Heme/Onc #Acute blood loss anemia, stable ? Continue to monitor daily CBC Endocrine #Subclinical hypothyroidism TSH 0.39, T4 0.84 Likely normal based on patient age Infectious disease #? Spontaneous bacterial peritonitis WBC uptrending, though no fevers. ? Paracentesis tomorrow ? [facility] management: Disposition: critically ill in ICU Drips: fentanyl, propofol, levophed, vasopressin Fluids: none Diet: NPO Lines: PIV, temp dialysis catheter DVT prophylaxis: SCDs Garcia: placed CODE STATUS: DNR ----- Plan discussed with attending physician Dr. Heath Murphy MD PGY-1 Internal Medicine Attending Provider Attestation/Addendum Patient seen and examined with above resident, Edgar Murphy MD. I agree with the findings, assessment, and plan of care as documented except for any differences below. Patient remains encephalopathic secondary to elevated ammonia in the setting of end-stage liver disease with likely acute decompensation. Patient also has complicated course from hepatorenal syndrome. Continue vasopressor support for optimization in setting of distributive shock associated with decompensated alcoholic liver cirrhosis. We are trying to obtain surrogate decision making, and both sister and niece have been attempting to reach out to his daughter. She has now at this point declined involvement in the patient's care and will defer to her extended family. Sister is primary at bedside now and has been helping with decision-making. She does have a son who is a physician and daughter who is a nurse who has been assisting her with understanding our recommendations. Will plan for paracentesis tomorrow to exclude presence of peritonitis that he has been on Zosyn for better coverage for intraperitoneal/urinary tract as well as pulmonary infection. However I do not suspect infectious etiology for his acute decompensation and likely more reflection of decompensated liver disease. Remains on octreotide as well as maintenance of MAP, and albumin for optimization of renal function. Nephrology is involved and we will contemplate potential need for hemodialysis tomorrow. We had previously already placed central access with a Vas-Cath to which she is currently receiving pressors and sedation. Plan to do daily sedation holidays determine if the patient's mentation has improved, this may complicate course as fentanyl is cleared by the liver and may extend the time though ammonia continues to be elevated with lack of adequate bowel movements despite treatment. Bilirubin also continues to be elevated and it is reflection of severity of decline in hepatic function. Total critical care time: I personally spent 40 minutes for review of physiologic parameters, directing plan of care throughout the day, coordination of care with other specialties, and counseling patient's family at bedside. This is exclusive of time spent teaching of staff or performing any separate billable procedures. Patient continues require critical care services for acute decompensated liver cirrhosis, hepatic encephalopathy, hepatorenal syndrome with distributive shock. He remains at increased risk for further morbidity and high risk for mortality warranting ongoing care and management only available in the intensive care unit.
[2024-09-17] MEDS: OCTREOTIDE ACET INJ 1,000 MCG in SODIUM CHLORIDE 0.9% 100 ML 5.1 MCG IV (17:13)
[2024-09-17 18:58] LABS: Base Excess -4 (-3-3); HCO3 22 mEq/L (20-26); Inspired Oxygen, FIO2 30 %; O2 Saturation 93 % (91-98); PCO2 41 mmHg (32.0-48.0); PO2 71 mmHg (83-108); pH, Arterial 7.33 (7.35-7.45)
[2024-09-17 18:59] LABS: Allen Test Performed/OK; Puncture Site Left Radial
[2024-09-17] MEDS: fentaNYL 2,500 MCG/250 ML BAG 2,500 MCG/250 ML BAG 12.5 MCG IV (20:00)
[2024-09-17] MEDS: Norepinephrine/D5W 8mg/250ml 8 MG/250 ML BAG 38.597 MG IV (21:30)
--- NOTE | 2024-09-17 21:51 | ESPR_ITS ---
Documentation for date of: 09/17/24 Subjective Subjective Interval history: Decision maker Maggy patient's sister wants to pursue dialysis and other aggressive management Exam Vital Signs Temp Pulse Resp BP Pulse Ox O2 Del Method O2 Flow Rate 96.9 F 57 L 17 82/51 L 94 L Mechanical Ventilation 3 09/17/24 20:00 09/17/24 21:30 09/17/24 10:55 09/17/24 21:30 09/17/24 21:15 09/17/24 12:00 09/16/24 12:00 FiO2 30 09/17/24 20:00 Routine Respiratory Exam Comments: Mechanically ventilated Routine Abdominal Exam Comments: Positive for ascites Objective Labs 09/17/24 05:00 09/17/24 05:00 Labs: Laboratory Results - last 24 hr 09/12/24 09/14/24 09/17/24 11:15 17:14 05:00 WBC 22.6 H D RBC 2.67 L Hgb 8.5 L Hct 26.1 L MCV 98 MCH 31.8 MCHC 32.6 RDW Std Deviation 72.4 H Plt Count 53 L D Neut % (Auto) 83 H Lymph % (Auto) 6 L [place] % (Auto) 9 Eos % (Auto) 1 Baso % (Auto) 0 Neut # (Auto) 18.7 H Lymph # (Auto) 1.4 [place] # (Auto) 2.1 H Eos # (Auto) 0.2 Baso # (Auto) 0.0 Immature Gran # (Auto) 0.15 H Absolute Nucleated RBC 0.03 H Immature Gran % 1 H Nucleated RBC % 0 Puncture Site ABG pH ABG pCO2 ABG pO2 ABG HCO3 ABG O2 Saturation ABG Base Excess FiO2 Sodium 143 Potassium 3.7 Chloride 108 H Carbon Dioxide 21.1 Anion Gap 14 BUN 62 H Creatinine 3.6 H Estim Creat Clear Calc 18.0 L eGFR 17 L BUN/Creatinine Ratio 17 Glucose 86 Calculated Osmolality 301 H Calcium 9.3 Corrected Calcium 10.4 H Phosphorus 5.7 H Magnesium 2.3 Total Bilirubin 26.7 H* D AST 113 H ALT 63 H Alkaline Phosphatase 132 H Total Protein 5.9 Albumin 2.6 L Globulin 3.3 Albumin/Globulin Ratio 0.8 L CMV IgG Ab >10.00 H CMV IgM Ab <30.00 HSV I IgG Ab 27.50 H HSV II IgG 3.07 H Misc Test Result See Mar Rpt Platelets confirmed Crossmatch See Detail 09/17/24 09/17/24 05:09 18:49 WBC RBC Hgb Hct MCV MCH MCHC RDW Std Deviation Plt Count Neut % (Auto) Lymph % (Auto) [place] % (Auto) Eos % (Auto) Baso % (Auto) Neut # (Auto) Lymph # (Auto) [place] # (Auto) Eos # (Auto) Baso # (Auto) Immature Gran # (Auto) Absolute Nucleated RBC Immature Gran % Nucleated RBC % Puncture Site Site Not Noted Left Radial ABG pH 7.29 L 7.33 L ABG pCO2 46 41 ABG pO2 64 L D 71 L ABG HCO3 22 22 ABG O2 Saturation 89 L 93 ABG Base Excess -5 L -4 L FiO2 21 30 Sodium Potassium Chloride Carbon Dioxide Anion Gap BUN Creatinine Estim Creat Clear Calc eGFR BUN/Creatinine Ratio Glucose Calculated Osmolality Calcium Corrected Calcium Phosphorus Magnesium Total Bilirubin AST ALT Alkaline Phosphatase Total Protein Albumin Globulin Albumin/Globulin Ratio CMV IgG Ab CMV IgM Ab HSV I IgG Ab HSV II IgG Misc Test Result Crossmatch Impressions Impression: # End-stage liver disease with advanced portal hypertension GI bleeding and hypertensive portal gastropathy # Hepatorenal syndrome # Acute respiratory failure requiring mechanical ventilation Guarded and poor prognosis Continue current management ABG Interpretation ABG results: 08/28/24 08/29/24 09/03/24 22:40 10:05 15:24 ABG pH 7.41 7.50 H ABG pCO2 29 L 33 ABG pO2 69 L 63 L ABG HCO3 18 L 25 ABG O2 Saturation 94 94 ABG Base Excess -6 L 2 VBG pH 7.41 VBG pCO2 47 VBG pO2 30 VBG Base Excess 4 H 09/16/24 09/16/24 09/17/24 10:57 15:20 05:09 ABG pH 7.27 L 7.34 L 7.29 L ABG pCO2 48 40 46 ABG pO2 88 240 H D 64 L D ABG HCO3 22 21 22 ABG O2 Saturation 96 101 H 89 L ABG Base Excess -5 L -4 L -5 L VBG pH VBG pCO2 VBG pO2 VBG Base Excess 09/17/24 18:49 ABG pH 7.33 L ABG pCO2 41 ABG pO2 71 L ABG HCO3 22 ABG O2 Saturation 93 ABG Base Excess -4 L VBG pH VBG pCO2 VBG pO2 VBG Base Excess Assessment & Plan A&P Narrative # Acute upper GI bleed in the form of melena # Acute posthemorrhagic anemia # Acute hepatic encephalopathy # Chronic liver disease with thrombocytopenia abnormal liver function test and coagulopathy secondary to alcohol Plan Agree with the blood transfusion give patient 2 units of PRBC Octreotide infusion Lactulose and Xifaxan Consent will be obtained from the sister who makes that decision for fiberoptic esophagogastroduodenoscopy with possible therapeutic intervention under intravenous moderate sedation Prognosis guarded Thank you for the opportunity to participate in the care of this patient Time Spent With Patient Time: Total time spent is greater than 50% in coordination of care (as documented) at patient's floor/unit and/or counseling patient:
[2024-09-18] VITALS (172 sets, daily range): BP systolic 54–153; BP diastolic 40–98; PULSE 40–98; RESP 7–25; TEMP 36.4–37.1; O2SAT 86–100
[2024-09-18] MEDS: DEXTROSE 50%-WATER INJ 50 ML SYRINGE IV ×4 (00:56→23:56)
[2024-09-18] MEDS: VASOPRESSIN IN NS IVPB 20 UNIT/100 ML BAG 9 UNIT IV ×2 (01:29→13:34)
[2024-09-18] MEDS: Norepinephrine/D5W 8mg/250ml 8 MG/250 ML BAG 41.953 MG IV (03:30)
[2024-09-18 05:45] LABS: Basophils % (Auto) 0 % (0-2.5); Eosinophils # (Auto) 0.3 Thou/mm3 (0.0-0.5); Eosinophils % (Auto) 2 % (0-10); Hematocrit 24.7 % (41.0-53.0); Hemoglobin 8.2 g/dL (13.5-16.0); Immature Granulocytes % (Auto) 1 % (0-0); Immature Granulocytes Auto 0.29 Thou/mm3 (0.00-0.00); Lymphocytes # (Auto) 1.6 Thou/mm3 (1.0-4.8); Lymphocytes % (Auto) 7 % (10-50); Mean Corpuscular HGB Conc 33.2 g/dl (31.0-37.0); Mean Corpuscular Hemoglobin 32.3 pg (25.0-35.0); Mean Corpuscular Volume 97 fL (80-100); Monocytes # (Auto) 2.3 Thou/mm3 (0.0-0.8); Monocytes % (Auto) 11 % (0-12); Neutrophils # (Auto) 17.3 Thou/mm3 (1.8-7.7); Neutrophils % (Auto) 79 % (37-80); Nucleated Red Blood Cell # 0.06 Thou/mm3 (0.00-0.00); Nucleated Red Blood Cell % 0 /100 WBC (0); Platelet Count 47 Thou/mm3 (140-440); Red Blood Count 2.54 Miln/mm3 (4.50-5.90); White Blood Count 21.9 Thou/mm3 (3.8-10.6)
[2024-09-18 05:46] LABS: Slide Review Platelets confirmed
[2024-09-18] MEDS: LACTULOSE SYRUP 20 GM/30 ML UDC 30 GM NG ×4 (05:59→20:53)
[2024-09-18 06:21] LABS: Alanine Aminotransferase 64 U/L (10-49); Albumin, Serum 2.4 gm/dL (3.4-4.8); Albumin/Globulin Ratio 0.7 (1.2-2.2); Alkaline Phosphatase 145 U/L (46-116); Anion Gap 12 (7-16); Aspartate Amino Transferase 113 U/L (0-34); BUN/Creatinine Ratio 17 Ratio (12-20); Blood Urea Nitrogen 72 mg/dL (9-23); Calcium 8.6 mg/dL (8.3-10.6); Calcium (Corrected) 9.9 mg/dL (8.5-10.1); Carbon Dioxide 22.1 mMol/L (20.0-31.0); Chloride 108 mMol/L (98-107); Creatinine (Component) 4.2 mg/dL (0.6-1.3); Estimated Creatinine Clearance 17.2 mL/min (>60); Globulin 3.4 gm/dL (2.3-3.5); Glucose 73 mg/dL (74-106); Magnesium 2.2 mg/dL (1.6-2.6); Osmolality,Calculated 303 (275-295); Phosphorous 5.6 mg/dL (2.4-5.1); Potassium 3.5 mMol/L (3.4-5.1); Sodium 142 mMol/L (136-145); Total Protein 5.8 gm/dL (5.7-8.2); eGFR 14 See Note
[2024-09-18 06:26] LABS: Bilirubin,Total 27.3 mg/dL (0.3-1.2)
[2024-09-18] MEDS: ALBUMIN HUMAN 25% IVPB 25 GM/100 ML BTL IV ×2 (08:23→10:10)
[2024-09-18] MEDS: Norepinephrine/D5W 8mg/250ml 8 MG/250 ML BAG 52.022 MG IV (09:23)
--- NOTE | 2024-09-18 09:28 | ESPR_ITS ---
Documentation for date of: 09/18/24 Subjective Subjective Interval history: Chart review done. Mr. Stack is a 74-year-old male with past medical history of liver cirrhosis secondary to alcohol use disorder, esophageal varices, ?Asthma/COPD, GERD, anxiety and BPH presented to [facility] [place] on 08/28/2024 with a chief complaint of altered mental status. per EMS patient was found to be naked and altered. Noted to have dark blood all over the floor. During the hospital course patient had a GI bleed and was seen by Dr. Hall. Also noted to have metabolic encephalopathy-lactulose, rifaximin were initiated. For the last 24 hours his urine output has dropped significantly and renal consultation was requested. CT brain was negative. 09/08/2024 patient currently seen in telemetry.His current medications included folic acid, lactulose, Protonix, propranolol, rifaximin, thiamine.WBC 11.9, hemoglobin 9.5, platelets 131. Sodium 137, potassium 3.3, BUN 43, creatinine 2.9, calcium 9, phosphorus 3.9, total bilirubin 15.2, AST 132, ALT 53, albumin 1.7. Urine showed concentrated urine with blood and bilirubin. Urine sodium less than 15. Talk screen was negative. Hep panel showed AB and AB-. Hep C positive. Renal ultrasound this afternoon showed no hydronephrosis. No cortical thinning consistent with normal kidneys. Head CT on admission was negative. 09/09/2024 patient currently seen in telemetry. Today he seems to be more alert and awake. Last night hospitalist team called-patient complaining of abdominal pain and shortness of breath. Chest x-ray showed dilated bowel loops. Recommended KUB which showed ileus-NG tube was inserted overnight. Patient currently seems to be feeling little bit better. Denies any abdominal pain. Hemoglobin 9, platelets 109, WBC 11, sodium 137, potassium 3.4, BUN 44, creatinine 3.6, GFR 17, bilirubin significantly elevated to 19, AST 113, ALT 48, alk phos 155, albumin 2.1 urine sodium less than 15 urine output 225 mL/day Noted team started the patient on steroids. Patient has a decompensated liver cirrhosis. Hep C positive. Viral load pending. Dr. Hall on the case. Patient currently on albumin, midodrine, normal saline to rule out hepatorenal syndrome. Will continue the same for another 24 hours. If no improvement then HRS 1 diagnosis will be made 09/10/2024 patient currently seen in telemetry. He is having breakfast. Denies any chest pain, shortness of breath. More alert and awake. Made 500 mL urine last night. Blood sugar 109. Blood pressure 100/53, heart rate 69. WBC 12.3, hemoglobin 8.2, platelets 94. Sodium 137, potassium 3.4, bicarbonate 18.8, BUN 56, creatinine 3.9, glucose 133, calcium 9.1, phosphorus 5.1, magnesium 2.6, total bilirubin 20.9, AST 53, ALT 43, alk phos 133, albumin 2.4. He is currently on midodrine, normal saline at 125 mL/h, albumin 3 times daily, rifaximin. 09/14/2024 patient currently seen in telemetry. Labs, medications reviewed. Creatinine still elevated. BUN, bilirubin significantly elevated. Spoke to Dr. Coulter-continue with prn diuretics. Continue with albumin, rifaximin, midodrine, octreotide. Patient seems to be going towards hepatorenal syndrome I versus ATN. Did talk to the patient yesterday that if no improvement in renal function will plan for renal replacement therapy on Sunday. He agreed. Family requested all aggressive measures including dialysis if needed. Noted transfer was denied by [facility]. He seems to be slightly confused today. 09/15/2024 Patient currently seen in telemetry. He seems to be slightly awake and alert today. Patient made 1600 ml urine. Creatinine stable at 3.6. Hold off on dialysis today. Spoke to Dr. Coulter-gentle IV fluids will be given today. Patient in the negative balance. Clinically looks rather dehydrated. Medications and labs reviewed. 09/16/2024 Patient currently seen in telemetry. This morning he seems to be slow in response. Significant jaundice noted. Creatinine improved to 3.1. Urine output overnight more than [address] Coulter-will do gentle IV fluids. Patient not taking his lactulose. Dr. Coulter planning to place a rectal tube with the lactulose pr. 09/18/2024 patient currently seen in ICU. Currently on pressors. Urine output started to decrease. Patient currently on ventilator. Labs, medications reviewed. ICU team placed Vas-Cath. Family requesting all aggressive measures including dialysis despite explaining poor prognosis and not a candidate for outpatient dialysis. Dialysis ordered today. Patient on dialysis. Review of Systems Review of Systems ROS Unobtainable: due to endotracheal tube Narrative Review of Systems: Exam Vital Signs Temp Pulse Resp BP Pulse Ox O2 Del Method O2 Flow Rate 36.7 C 64 20 102/64 93 L Mechanical Ventilation 3 09/18/24 08:34 09/18/24 09:25 09/18/24 08:34 09/18/24 09:25 09/18/24 08:34 09/17/24 12:00 09/16/24 12:00 FiO2 30 09/18/24 08:34 Narrative Exam GENERAL APPEARANCE patient currently seen in ICU. On vent. On dialysis NECK: Neck supple, no JVD or bruit CARDIOVASCULAR: Heart regular, no murmurs LUNGS/CHEST: Few rhonchi noted bilaterally ABDOMEN: Distended with good bowel sounds. EXTREMITIES: 2+ edema noted in the extremities SKIN: Jaundiced MUSCULOSKELETAL: In bed NEUROLOGICAL : Intubated, sedated Objective Labs 09/18/24 04:37 09/18/24 04:37 Labs: Laboratory Results - last 24 hr 09/14/24 09/17/24 09/18/24 17:14 18:49 04:37 WBC 21.9 H RBC 2.54 L Hgb 8.2 L Hct 24.7 L MCV 97 MCH 32.3 MCHC 33.2 RDW Std Deviation 73.0 H Plt Count 47 L Neut % (Auto) 79 Lymph % (Auto) 7 L [place] % (Auto) 11 Eos % (Auto) 2 Baso % (Auto) 0 Neut # (Auto) 17.3 H Lymph # (Auto) 1.6 [place] # (Auto) 2.3 H Eos # (Auto) 0.3 Baso # (Auto) 0.0 Immature Gran # (Auto) 0.29 H Absolute Nucleated RBC 0.06 H Immature Gran % 1 H Nucleated RBC % 0 Puncture Site Left Radial ABG pH 7.33 L ABG pCO2 41 ABG pO2 71 L ABG HCO3 22 ABG O2 Saturation 93 ABG Base Excess -4 L FiO2 30 Sodium 142 Potassium 3.5 Chloride 108 H Carbon Dioxide 22.1 Anion Gap 12 BUN 72 H Creatinine 4.2 H* D Estim Creat Clear Calc 17.2 L eGFR 14 L* BUN/Creatinine Ratio 17 Glucose 73 L Calculated Osmolality 303 H Calcium 8.6 Corrected Calcium 9.9 Phosphorus 5.6 H Magnesium 2.2 Total Bilirubin 27.3 H* D AST 113 H ALT 64 H Alkaline Phosphatase 145 H Total Protein 5.8 Albumin 2.4 L Globulin 3.4 Albumin/Globulin Ratio 0.7 L Misc Test Result Platelets confirmed Crossmatch See Detail Blood Bank Comment 09/18/24 08:07 WBC RBC Hgb Hct MCV MCH MCHC RDW Std Deviation Plt Count Neut % (Auto) Lymph % (Auto) [place] % (Auto) Eos % (Auto) Baso % (Auto) Neut # (Auto) Lymph # (Auto) [place] # (Auto) Eos # (Auto) Baso # (Auto) Immature Gran # (Auto) Absolute Nucleated RBC Immature Gran % Nucleated RBC % Puncture Site ABG pH ABG pCO2 ABG pO2 ABG HCO3 ABG O2 Saturation ABG Base Excess FiO2 Sodium Potassium Chloride Carbon Dioxide Anion Gap BUN Creatinine Estim Creat Clear Calc eGFR BUN/Creatinine Ratio Glucose Calculated Osmolality Calcium Corrected Calcium Phosphorus Magnesium Total Bilirubin AST ALT Alkaline Phosphatase Total Protein Albumin Globulin Albumin/Globulin Ratio Misc Test Result Crossmatch Blood Bank Comment FFP Ready ABG Interpretation ABG results: 08/28/24 08/29/24 09/03/24 22:40 10:05 15:24 ABG pH 7.41 7.50 H ABG pCO2 29 L 33 ABG pO2 69 L 63 L ABG HCO3 18 L 25 ABG O2 Saturation 94 94 ABG Base Excess -6 L 2 VBG pH 7.41 VBG pCO2 47 VBG pO2 30 VBG Base Excess 4 H 09/16/24 09/16/24 09/17/24 10:57 15:20 05:09 ABG pH 7.27 L 7.34 L 7.29 L ABG pCO2 48 40 46 ABG pO2 88 240 H D 64 L D ABG HCO3 22 21 22 ABG O2 Saturation 96 101 H 89 L ABG Base Excess -5 L -4 L -5 L VBG pH VBG pCO2 VBG pO2 VBG Base Excess 09/17/24 18:49 ABG pH 7.33 L ABG pCO2 41 ABG pO2 71 L ABG HCO3 22 ABG O2 Saturation 93 ABG Base Excess -4 L VBG pH VBG pCO2 VBG pO2 VBG Base Excess Assessment & Plan Assessment and plan (1) Acute renal failure (ARF): Status: Acute (2) Acute upper gastrointestinal bleeding: Status: Acute (3) Cirrhosis of liver: Status: Acute (4) Hepatic encephalopathy: Status: Acute (5) Anemia: Status: Acute Additional Assessment & Plan Additional Plan: (1) Acute renal failure (ARF): Status: Acute Assessment and plan: Acute renal failure with worsening renal function and decreased urine output- rule out hepatorenal syndrome versus prerenal azotemia// ATN with fluctuations in blood pressure. Patient was given as needed diuretics. Currently on rifaximin, albumin, midodrine, octreotide. 09/18/2024 Vas-Cath placed by ICU team. ICU team had a long conversation with family regarding poor prognosis. Patient not a liver transplant candidate. Despite dialysis outcomes seems dismal. Worsening liver failure. Family requesting all aggressive measures we will proceed with dialysis. Patient currently seen on dialysis. Tolerating dialysis without any problems. Hemodialysis for 3 hours,qb200, 2K, ultrafiltration 1 L, Epogen 6000, no heparin ordered. Plan of care discussed with the dialysis nurse. Please see dialysis flowsheet for further details. Critical care time spent more than 35 minutes regarding plan of care and disease management. (2) Acute upper gastrointestinal bleeding: Status: Acute Assessment and plan: Dr. Hall on the case. On PPI (3) Cirrhosis of liver: Status: Acute Assessment and plan: Patient seems to have decompensated liver cirrhosis with GI bleed, varices, hepatic encephalopathy, worsening renal function, thrombocytopenia, anemia. GI on the case. On lactulose, rifaximin patient has a prolonged hospital course for the last couple of weeks Patient did receive steroids. Patient received couple of doses of NAC. (4) Hepatic encephalopathy: Status: Acute Assessment and plan: On lactulose- on vent (5) Anemia: Status: Acute Assessment and plan: As needed transfusions Plan of care discussed with ICU team. Quality - progress note Quality Measures Quality Measures: VTE prophylaxis Reason for Continued Stay Reason for Continued Stay: further monitoring
--- NOTE | 2024-09-18 09:46 | PC.NURSE ---
BP TRENDING LOW, BEDSIDE NURSE REPORTS PT RECEIVED ALBUMIN 25/100ML JUST BEFORE TX. UF TURNED OFF BEDSIDE NURSE NOTIFIED W/ ORDER TO INCREASE BP MED. PT REMAINS RECLINED W/O DISTRESS NOTED. WILL CONT. TO MONITOR
[2024-09-18] MEDS: EPINEPHrine in NS 4 MG IVPB 4 MG/250 ML BAG 17.644 MG IV (09:59)
--- NOTE | 2024-09-18 10:02 | PC.NURSE ---
BP REMIANS LOW, UF REMAINS OFF, MD AT BEDSIDE WILL CONT. TO MONITOR
--- NOTE | 2024-09-18 10:07 | PC.NURSE ---
BP TRENDING UP, UF GOAL LOWERED TO CLEANING, UF TURNED BACK ON. WILL CONT. TO MONITOR
--- NOTE | 2024-09-18 10:15 | PC.NURSE ---
TX TERMINATED PER MD D/T BP DROPPING AGAIN AND PT'S HR CONTINUOUSLY DROPPING AND SHOWING MULT. PVC;S
[2024-09-18] MEDS: EPOETIN ALFA-EPBX INJ 10,000 UNIT/ML VIAL (ESRD) 10000 UNIT SC (10:28)
[2024-09-18] MEDS: PHENYLEPHRINE HCL 40 MG in SODIUM CHLORIDE 0.9% 96 ML 7.058 MG IV (10:29)
--- NOTE | 2024-09-18 10:33 | PD.RESEVENT ---
Documentation for date of: 09/18/24 Event Note Event Note: Decision making capabilities temporarily transitioned to Miriam Ryan ([phone]), daughter of Maggy Romero and niece of Abdifatah Stack, as Maggy Romero will be undergoing a procedure today (09/18).
--- NOTE | 2024-09-18 10:33 | PC.NURSE ---
VERIFIED WITH DR FINNEGAN VIA TELEPHONE PATIENTS POC [facility] BLACKMON WANTS TO TEMPORARILY MAKE KALANI BENNETT [phone] PATIENTS NIECE POC AND DECISION MAKER WHILE [facility] IS TEMPORARILY UNAVAILABLE.
[2024-09-18] MEDS: HEPARIN SOD INJ 1000 UNIT/ML VIAL 10 ML 2600 UNIT INDWELLCAT (10:43)
[2024-09-18 11:05] LABS: Ammonia 69 uMol/L (11-32)
--- NOTE | 2024-09-18 11:17 | ESPR_ITS ---
Documentation for date of: 09/18/24 Subjective Subjective Interval history: Abdifatah Stack is a 74-year-old male with past medical history of HCV, alcoholic cirrhosis, esophageal varices, GERD, anxiety, and BPH who presented on 08/28 with AMS [facility]. During hospital course, received EGD on 09/01 which showed grade 1 varices (not large enough for band ligation), hemorrhagic gastritis, and hypertensive portal gastropathy with mucosal oozing as source of bleeding. Over past couple of days, noted to become more encephalopathic and developed worsening respiratory failure and required intubation and subsequently upgraded to ICU on 09/16. 09/17: Seen and examined at bedside in ICU. No acute overnight events reported. Patient's daughter, Ca, has declined to be assigned patient's medical surrogate decision-maker and will instead be patient's sister, Maggy. Sister states that she would like to pursue treatment at this time including dialysis and paracentesis. ABG showed pH 7.29, pCO2 46, P O2 64. Per Gunderson formula, expected pCO2 38-42 and so will increase VT from 400 to 420 and follow-up ABG showed improvement as pH increased from 7.29 to 7.33 and pCO2 decreased from 46 to 41. 09/18: Seen and examined at bedside in ICU. No acute overnight events reported. Underwent dialysis in a.m. and patient did not tolerate as HR decreased to 40s and BP decreased with increasing requirements in pressors. Attempted ultrafiltration only but continued to not tolerate with multiple PVCs seen on monitor and treatment terminated after approximately 25 minutes. Also underwent paracentesis with removal of approximately 550 cc of straw-colored fluid. Sample sent for analysis and culture and will follow-up tomorrow. Family updated regarding that patient could not tolerate dialysis. Exam Vital Signs Temp Pulse Resp BP Pulse Ox O2 Del Method O2 Flow Rate 98.1 F 81 20 129/62 93 L Mechanical Ventilation 3 09/18/24 10:21 09/18/24 11:10 09/18/24 10:21 09/18/24 11:10 09/18/24 11:10 09/18/24 08:00 09/16/24 12:00 FiO2 30 09/18/24 10:27 Narrative Exam General: intubated, sedated, mechanically ventilated HEENT: scleral icterus, pupils non-reactive to light, NC/AT, mucous membranes moist Cardiovascular: regular rate and rhythm, S1/S2 present, no murmurs appreciated Pulmonary: decreased right-sided breath sounds Abdominal: distended, firm Musculoskeletal: normal ROM, no peripheral edema Skin: jaundiced, warm and dry, intact, no rashes Neuro: GCS 3T Objective Labs 09/19/24 06:20 09/19/24 05:30 Labs: Laboratory Results - last 24 hr 09/14/24 09/17/24 09/18/24 17:14 18:49 04:37 WBC 21.9 H RBC 2.54 L Hgb 8.2 L Hct 24.7 L MCV 97 MCH 32.3 MCHC 33.2 RDW Std Deviation 73.0 H Plt Count 47 L Neut % (Auto) 79 Lymph % (Auto) 7 L [place] % (Auto) 11 Eos % (Auto) 2 Baso % (Auto) 0 Neut # (Auto) 17.3 H Lymph # (Auto) 1.6 [place] # (Auto) 2.3 H Eos # (Auto) 0.3 Baso # (Auto) 0.0 Immature Gran # (Auto) 0.29 H Absolute Nucleated RBC 0.06 H Immature Gran % 1 H Nucleated RBC % 0 Puncture Site Left Radial ABG pH 7.33 L ABG pCO2 41 ABG pO2 71 L ABG HCO3 22 ABG O2 Saturation 93 ABG Base Excess -4 L FiO2 30 Sodium 142 Potassium 3.5 Chloride 108 H Carbon Dioxide 22.1 Anion Gap 12 BUN 72 H Creatinine 4.2 H* D Estim Creat Clear Calc 17.2 L eGFR 14 L* BUN/Creatinine Ratio 17 Glucose 73 L Calculated Osmolality 303 H Calcium 8.6 Corrected Calcium 9.9 Phosphorus 5.6 H Magnesium 2.2 Total Bilirubin 27.3 H* D AST 113 H ALT 64 H Alkaline Phosphatase 145 H Ammonia Total Protein 5.8 Albumin 2.4 L Globulin 3.4 Albumin/Globulin Ratio 0.7 L Misc Test Result Platelets confirmed Crossmatch See Detail Blood Bank Comment 09/18/24 09/18/24 08:07 09:55 WBC RBC Hgb Hct MCV MCH MCHC RDW Std Deviation Plt Count Neut % (Auto) Lymph % (Auto) [place] % (Auto) Eos % (Auto) Baso % (Auto) Neut # (Auto) Lymph # (Auto) [place] # (Auto) Eos # (Auto) Baso # (Auto) Immature Gran # (Auto) Absolute Nucleated RBC Immature Gran % Nucleated RBC % Puncture Site ABG pH ABG pCO2 ABG pO2 ABG HCO3 ABG O2 Saturation ABG Base Excess FiO2 Sodium Potassium Chloride Carbon Dioxide Anion Gap BUN Creatinine Estim Creat Clear Calc eGFR BUN/Creatinine Ratio Glucose Calculated Osmolality Calcium Corrected Calcium Phosphorus Magnesium Total Bilirubin AST ALT Alkaline Phosphatase Ammonia 69 H Total Protein Albumin Globulin Albumin/Globulin Ratio Misc Test Result Crossmatch Blood Bank Comment FFP Ready ABG Interpretation ABG results: 08/28/24 08/29/24 09/03/24 22:40 10:05 15:24 ABG pH 7.41 7.50 H ABG pCO2 29 L 33 ABG pO2 69 L 63 L ABG HCO3 18 L 25 ABG O2 Saturation 94 94 ABG Base Excess -6 L 2 VBG pH 7.41 VBG pCO2 47 VBG pO2 30 VBG Base Excess 4 H 09/16/24 09/16/24 09/17/24 10:57 15:20 05:09 ABG pH 7.27 L 7.34 L 7.29 L ABG pCO2 48 40 46 ABG pO2 88 240 H D 64 L D ABG HCO3 22 21 22 ABG O2 Saturation 96 101 H 89 L ABG Base Excess -5 L -4 L -5 L VBG pH VBG pCO2 VBG pO2 VBG Base Excess 09/17/24 18:49 ABG pH 7.33 L ABG pCO2 41 ABG pO2 71 L ABG HCO3 22 ABG O2 Saturation 93 ABG Base Excess -4 L VBG pH VBG pCO2 VBG pO2 VBG Base Excess Quality Measures Quality Measures none Advance care planning discussed with:: legal surragate and sibling Assessment & Plan Assessment Current Active Medications: Generic Name Dose Route Start Last Admin Trade Name Freq PRN Reason Stop Dose Admin Albuterol/Ipratropium 3 ml 08/28/24 20:24 09/12/24 19:57 Albuterol/Ipratropium (Duoneb) Rt Janessa 3 Ml Nebu INH 09/27/24 22:59 3 ml Q4HRRT PRN Administration Wheeze Atropine Sulfate 0.5 mg 09/18/24 10:10 Atropine Sulf Inj 0.1 Mg/Ml Syr 10 Ml IVP 10/18/24 10:09 Q3MIN PRN BRADYCARDIA (HR<50) Citric Acid/Sodium Citrate 30 ml 09/16/24 16:00 09/17/24 09:13 Citric Acid/Sodium Citr 15 Ml Udc (Bicitra) NG 10/16/24 15:59 30 ml DAILY JERSON Administration Dextrose 25 ml 09/15/24 06:05 09/16/24 05:12 Dextrose 50%-Water Inj 50 Ml Syringe IV 10/15/24 06:04 25 ml Q15MIN PRN Administration BG 50-70 responsive npo pt Dextrose 50 ml 09/15/24 06:05 09/18/24 06:06 Dextrose 50%-Water Inj 50 Ml Syringe IV 10/15/24 06:04 50 ml Q15MIN PRN Administration BG <50 OR BG <70 & pt unresponsive Folic Acid 1 mg 09/17/24 09:00 09/17/24 09:14 Folic Acid 1 Mg Tablet NG 10/17/24 08:59 1 mg QDAY JERSON Administration Glucagon 1 mg 09/15/24 06:05 Glucagon Inj 1 Mg Vial IM Q15MIN PRN BG <70, and no IV access Heparin Sodium (Porcine) 2,600 unit 09/18/24 09:00 09/18/24 10:43 Heparin Sod Inj 1000 Unit/Ml Vial 10 Ml INDWELLCAT 10/02/24 08:59 2,600 unit PRN PRN Administration DIALYSIS Piperacillin Sod/Tazobactam 50 mls @ 12.5 mls/hr 09/12/24 09:00 09/17/24 21:15 Sod 3.375 gm/ Sodium Chloride IV 09/19/24 08:59 12.5 mls/hr Q12HR JERSON Administration Octreotide Acetate 1,000 mcg/ 102 mls @ 5.1 mls/hr 09/13/24 11:38 09/17/24 17:13 Sodium Chloride IV 09/18/24 11:38 50 mcg/hr .Q20H JERSON 5.1 mls/hr Administration Protocol 50 MCG/HR Propofol 1,000 mg in 100 mls @ 2.685 mls/hr 09/16/24 13:43 09/16/24 18:21 Diprivan Ivpb IV 10/16/24 13:42 0 mcg/kg/min .Q24H PRN 0 mls/hr PER PROTOCOL Titration Protocol 5 MCG/KG/MIN Fentanyl Citrate 2,500 mcg in 250 mls @ 2.5 mls/hr 09/16/24 13:44 09/18/24 06:00 Sublimaze Inj 2,500 Mcg/250 Ml Bag IV 09/21/24 13:43 125 mcg/hr .Q24H PRN 12.5 mls/hr PER PROTOCOL Titration Protocol 25 MCG/HR Norepinephrine/Dextrose 8 mg in 250 mls @ 8.391 mls/hr 09/16/24 14:28 09/18/24 09:23 Levophed In D5w 8mg/250ml IV 10/16/24 13:34 0.31 mcg/kg/min .Q24H PRN 52.022 mls/hr PER PROTOCOL Administration Protocol 0.05 MCG/KG/MIN Vasopressin/Sodium Chloride 20 unit in 100 mls @ 9 mls/hr 09/16/24 16:43 09/18/24 01:29 Vasostrict/Ns Ivpb IV 10/16/24 16:42 0.03 unit/min .[id number] PRN 9 mls/hr PER PROTOCOL Administration Protocol 0.03 UNIT/MIN Albumin Human 25 gm in 100 mls @ 100 mls/hr 09/18/24 07:22 09/18/24 08:23 Albuminar-25 Ivpb IV 09/21/24 07:21 100 mls/hr QDAY JERSON Administration Epinephrine/Sodium Chloride 4 mg in 250 mls @ 17.644 mls/hr 09/18/24 09:52 09/18/24 09:59 Adrenalin/Ns 4 Mg Ivpb IV 10/18/24 09:51 0.05 mcg/kg/min .[id number] PRN 17.644 mls/hr per protocol Administration Protocol 0.05 MCG/KG/MIN Phenylephrine HCl 40 mg/ 100 mls @ 7.058 mls/hr 09/18/24 10:12 09/18/24 10:29 Sodium Chloride IV 10/18/24 10:11 0.5 mcg/kg/min .[id number] PRN 7.058 mls/hr Per Sepsis Protocol Administration Protocol 0.5 MCG/KG/MIN Albumin Human 25 gm in 100 mls @ 100 mls/hr 09/18/24 10:34 09/18/24 10:10 Albuminar-25 Ivpb IV 09/18/24 11:33 100 mls/hr X1 ONE Administration Lactulose 30 gm 09/16/24 20:08 09/18/24 05:59 Lactulose Syrup 20 Gm/30 Ml Udc NG 10/16/24 18:59 30 gm QID JERSON Administration Protocol Phytonadione 10 mg 09/16/24 10:00 09/17/24 09:14 Phytonadione Inj 10 Mg/Ml Amp SC 09/19/24 09:59 10 mg QDAY JERSON Administration Propranolol HCl 10 mg 09/16/24 21:00 Propranolol 10 Mg Tablet NG 10/16/24 20:59 BID JERSON Rifaximin 550 mg 09/16/24 21:00 09/17/24 21:15 Rifaximin 550 Mg Tablet NG 09/23/24 20:59 550 mg BID JERSON Administration Sevelamer Carbonate 0.8 gm 09/17/24 08:00 09/18/24 08:50 Sevelamer Carbonate 0.8 Gm Packet (Non-Formulary) NG 10/17/24 07:59 Not Given TIDWM JERSON Protocol Sodium Chloride 5 ml 08/28/24 17:29 08/28/24 18:47 Sodium Chloride Rt Janessa 0.9% 3 Ml Nebu INH 09/27/24 17:28 3 ml PRN PRN Administration SOLN Thiamine HCl 100 mg 09/17/24 09:00 09/17/24 09:14 Thiamine 100 Mg Tablet NG 10/17/24 08:59 100 mg QDAY JERSON Administration Plan Abdifatah Stack is a 74-year-old male with past medical history of HCV, alcoholic cirrhosis, esophageal varices, GERD, anxiety, and BPH who presented on 08/28 with AMS after being found by caregiver in [facility] of dark-colored blood. During hospital course, received EGD on 09/01 which showed grade 1 varices (not large enough for band ligation), hemorrhagic gastritis, and hypertensive portal gastropathy with mucosal oozing as source of bleeding. Over past couple of days, noted to become more encephalopathic and developed worsening respiratory failure and required intubation and subsequently upgraded to ICU on 09/16. Neurological #Acute encephalopathy, likely hepatic/metabolic Baseline, conversational and oriented x 3. On admission, encephalopathic and A&O x 0 that improved throughout hospitalization. However, throughout last couple of days was noted to become more encephalopathic. Repeat CT head on 09/16: Negative for acute hemorrhage, mass effect, or midline shift Ammonia 54, BUN 61, ABG showed pH 7.27. ? Lactulose 30 g 4 times daily ? Rifaximin 550 mg twice daily ? Aspiration precautions, head of bed elevation Cardiovascular #Shock, hypovolemic due to third spacing in setting of cirrhosis vs distributive (septic), resolved History of cirrhosis with prominent ascites seen on CT A/P on 09/16. #Bradycardia, in setting of propofol Pulmonary #Acute respiratory failure requiring intubation GCS 6 and respiratory distress prior to intubation ? Vent settings: VT 420, RR 20, PEEP 5, FiO2 30% ? ABG 09/17: pH 7.33, pCO2 41, pO2 71 #Aspiration pneumonia, resolved With AMS and CXR showed large right-sided pleural effusion. Completed 7 days of Augmentin (08/30 to 09/06). #History of COPD Home medication Trelegy inhaler ? DuoNebs as needed Gastrointestinal #Acute blood loss anemia secondary to GI bleed, resolved #Esophageal varices, resolved Found unconscious in a pool of coffee-ground emesis On admission patient's Hb 7.6 and he received 2 units PRBC. Post H&H 7.4 Currently Hb 8.9, Hct 26.8 ? Continue to monitor daily H&H #Acute on chronic liver failure with coagulopathy and thrombocytopenia #Portal hypertension with esophageal varices, hypertensive portal gastropathy and ascites #Hyperbilirubinemia CMV IgG positive, IgM negative. EBV IgG positive, IgM negative. HAV negative, HBV antigen nonreactive. HCV antibody reactive, RNA negative. HSV I/II IgG positive, HIV negative. EGD: diffuse hypertensive portal gastropathy with mucosal oozing of blood and 1+ esophageal varices not large enough for band ligation. Abdominal US on 09/11: gallbladder sludge, gallbladder wall thickened 0.5 cm, cirrhosis and mild ascites. Meld?NA score 38 points -> 65-66% 90-day mortality Child?Hernandez class C, 12 points -> life expectancy 1-3 years, abdominal surgery mortality 82% Madrey score 42 -> may benefit from steroids Completed N-acetylcysteine IV daily on 09/13 for acute on chronic liver failure Completed 3 days of Phytonadione 10 mg SC daily ffsaint alphonsus eagle 09/10-09/13 ? Status post paracentesis on 09/18 with removal of 550 cc straw-colored fluid ? SAAG of 1.4, which is > 1.1 and highly suggestive of portal hypertension ? 1 WBC in peritoneal fluid -> no SBP Renal #Respiratory acidosis #Non anion gap metabolic acidosis Grunting and responsive to pain only. Had 1 bowel movements in the past 48 hours. ? Lactulose and rifaxamin as above ? Aspiration precautions, head of bed elevation ? Continue Bicitra #Acute kidney injury, likely prerenal in setting of cirrhosis (hepatorenal syndrome) #Anasarca Baseline Cr 0.5 Urine creatinine 216, urine random protein 100, urine sodium <15, urine potassium 50, urine chloride <20 Renal US 09/08: no hydronephrosis, no significant cortical thinning ? Octreotide 09/13-09/18 ? Pressors as noted above ? Albumin ? Nephrology consulted, appreciate recommendations ? Renally dose medications and avoid nephrotoxic agents #Hyperphosphatemia K 3.9 Phosphorus 6 ? Dialysis ? F/u repeat labs Heme/Onc #Acute blood loss anemia, stable ? Continue to monitor daily CBC Endocrine #Subclinical hypothyroidism TSH 0.39, T4 0.84 Likely normal based on patient age Infectious disease #? Spontaneous bacterial peritonitis WBC uptrending, though no fevers. ? Follow-up pleural fluid studies ? [facility]: Disposition: critically ill in ICU Drips: fentanyl, levophed, vasopressin, phenylephrine Fluids: none Diet: NPO Lines: PIV, temp dialysis catheter DVT prophylaxis: SCDs Garcia: placed CODE STATUS: DNR ----- Plan discussed with attending physician Dr. Heath Murphy MD PGY-1 Internal Medicine Attending Provider Attestation/Addendum Patient seen and examined with the resident, Edgar Murphy MD. I agree with the findings, assessment, and plan of care as documented in separate differences below. Patient's mentation remains unchanged at this point. With minimal sedation he continues to have no significant improvement despite use of lactulose and rifaximin. Bilirubin continues to be significantly elevated and renal failure may have indeterminate toxic agents that may have been adequately filtered with hemodialysis. This was attempted on vasopressor support though a third agent was required which led to ectopy. Hemodialysis was not well- tolerated and treatment was discontinued. Patient will continue to be on octreotide and albumin along with sustaining of MAP goal for adequate renal perfusion in the setting of hepatorenal syndrome. His ability to recover has become even further diminished with intolerance of hemodialysis and there is limited utility to transfer for CRRT alone given CRRT versus hemodialysis has not been shown to have improved survival benefit over 1 another. Patient is family was not at bedside today as the sister is having surgery and has a temporarily allowed her daughter to be surrogate decision maker in the interim. Resident housestaff has updated the patient's family. We have performed paracentesis and see separate note. Will discontinue antibiotics appropriately with adequate treatment course for both pulmonary and urinary infections along with intra peritoneal, if WBC is below 250 will feel confident that this is a consequence of portal hypertension No longer requires prophylaxis. Patient receiving all appropriate supportive care and prophylaxis. Will continue to maintain until further goals of care discussion not had with the patient's sister who is ultimately his decision maker. Total critical care time: I personally spent 35 minutes for review of physiologic parameters, direct the plan of care throughout the day, and coordination of care with other subspecialists. This is exclusive of time spent teaching housestaff performing any separate billable procedures. Patient continues to require critical care services for distributive shock in the setting of acute decompensated liver cirrhosis and acute hypoxic respiratory failure now complicated by renal failure secondary to hepatorenal syndrome. He remains at high risk for further morbidity and mortality monitoring ongoing care and management will be available in the intensive care unit.
[2024-09-18] MEDS: rifaximin 550 MG TABLET NG ×2 (11:36→20:53)
[2024-09-18] MEDS: CITRIC ACID/SODIUM CITR 15 ML UDC (BICITRA) 30 ML NG (11:36)
[2024-09-18] MEDS: THIAMINE 100 MG TABLET NG (11:36)
[2024-09-18] MEDS: PHYTONADIONE INJ 10 MG/ML AMP SC (11:36)
[2024-09-18] MEDS: FOLIC ACID 1 MG TABLET NG (11:36)
[2024-09-18] MEDS: PIPER/TAZO INJ 3.375 GM in SODIUM CHLORIDE 0.9% (Popper) 50 ML IV ×2 (11:37→20:55)
[2024-09-18] MEDS: MIDAZOLAM INJ 1 MG/ML VIAL 2 ML 2 MG IV (12:10)
[2024-09-18] MEDS: Norepinephrine/D5W 8mg/250ml 8 MG/250 ML BAG 80.55 MG IV (12:21)
[2024-09-18] MEDS: fentaNYL 2,500 MCG/250 ML BAG 2,500 MCG/250 ML BAG 27.5 MCG IV ×2 (13:27→22:30)
[2024-09-18 15:35] LABS: LDH (Lactate Dehydrogenase) 280 U/L (120-246)
[2024-09-18] MEDS: Norepinephrine/NS 16mg/250ml 16 MG/250 ML BAG 31.759 MG IV (15:59)
[2024-09-18 16:27] LABS: Peritoneal Fluid Polynuclear 0 %; Peritoneal Fluid WBC 1 /cmm
[2024-09-18 16:39] LABS: Albumin, Peritoneal Fluid < 1.0 gm/dL; Amylase,Peritoneal Fluid 353 IU/L; Glucose,Peritoneal Fluid 85 mg/dL; LDH,Peritoneal Fluid 82 IU/L; Protein Total,Peritoneal Fluid < 2 g/dL
[2024-09-18 16:43] LABS: Peritoneal Fluid Appearance Clear; Peritoneal Fluid Color Yellow; Peritoneal Fluid Mononuclear 100 %; RBC,Peritoneal Fluid 12 /cmm
--- NOTE | 2024-09-18 16:45 | PC.SS ---
Update: Patient underwent dialysis today, session stopped due to low blood pressure. Patient remains intubated/sedated. Patient on pressor support. Feedings on hold.
--- NOTE | 2024-09-18 19:48 | PD.RESPROC ---
Procedures Procedure Date / Time 09/18/241947 Procedure Narrative Procedure Narrative: Attending attestation: I was present for entire procedure. No immediate complications. Successful removal of 600 cc. Follow-up ultrasound shows still ascites but significant reduction all remaining pockets no longer amenable to further drainage at this point. No significant blood loss. FFP was used at the time of his procedure given inability to measure INR and risk associated with invasive procedure with bleeding, though low. Paracentesis Indication: Ascites Informed consent obtained: obtained from surrogate decision maker Time out done, and the following verified: correct patient, side and site and procedure Procedure: diagnostic paracentesis Location: RLQ Local anesthetic used: lidocaine 1% Amount of anesthesia used (mL): 5 Bedside ultrasound used: yes, Ascites confirmed and location marked Preparation: sterile prep and drape Amount of fluid obtained (mL): 550 Fluid: clear and sent to lab for analysis EBL(ml): 0 Post procedure exam: normal BP, normal HR and normal SpO2 Patient tolerated procedure: well and no complications Complications: none Procedure comment: I wore a surgical cap, mask with protective eyewear, sterile gown and sterile gloves throughout the procedure. The area was cleansed and draped in usual sterile fashion using chlorhexidine scrub. Anesthesia was achieved with 1% lidocaine. The RLQ of the abdomen was prepped and draped in a sterile fashion using chlorhexidine scrub. 1% lidocaine was used to numb the skin, soft tissue and advanced until peritoneal fluid was aspirated. Paracentesis needle/catheter was then inserted and advanced with negative pressure until straw-colored fluid was aspirated. Approximately 60 mL of ascitic fluid was collected and sent for laboratory analysis. The needle was then removed and the catheter was connected to the vaccutainer and 500 cc of additional ascitic fluid were drained. The catheter was removed and no leaking was noted. A bandaid was placed over the puncture wound. The patient tolerated the procedure well without any immediate complications.
--- NOTE | 2024-09-18 22:19 | ESPR_ITS ---
Documentation for date of: 09/18/24 Subjective Subjective Interval history: Patient evaluated did not tolerate dialysis this morning Paracentesis 550 cc of fluid obtained sent for culture and sensitivity WBC count 21.9 hemoglobin hematocrit 8.2 and 24.7 and a platelet count of 42,000 Total bilirubin 27.3 AST ALT 130 and 64 and alk phos 145 Exam Vital Signs Temp Pulse Resp BP Pulse Ox O2 Del Method O2 Flow Rate 98.5 F 65 15 99/55 L 94 L Mechanical Ventilation 3 09/18/24 20:00 09/18/24 22:00 09/18/24 13:23 09/18/24 22:00 09/18/24 22:00 09/18/24 16:00 09/16/24 12:00 FiO2 37 09/18/24 20:00 Objective Labs 09/18/24 04:37 09/18/24 04:37 Labs: Laboratory Results - last 24 hr 09/18/24 09/18/24 09/18/24 04:37 08:07 09:55 WBC 21.9 H RBC 2.54 L Hgb 8.2 L Hct 24.7 L MCV 97 MCH 32.3 MCHC 33.2 RDW Std Deviation 73.0 H Plt Count 47 L Neut % (Auto) 79 Lymph % (Auto) 7 L [place] % (Auto) 11 Eos % (Auto) 2 Baso % (Auto) 0 Neut # (Auto) 17.3 H Lymph # (Auto) 1.6 [place] # (Auto) 2.3 H Eos # (Auto) 0.3 Baso # (Auto) 0.0 Immature Gran # (Auto) 0.29 H Absolute Nucleated RBC 0.06 H Immature Gran % 1 H Nucleated RBC % 0 Sodium 142 Potassium 3.5 Chloride 108 H Carbon Dioxide 22.1 Anion Gap 12 BUN 72 H Creatinine 4.2 H* D Estim Creat Clear Calc 17.2 L eGFR 14 L* BUN/Creatinine Ratio 17 Glucose 73 L Calculated Osmolality 303 H Calcium 8.6 Corrected Calcium 9.9 Phosphorus 5.6 H Magnesium 2.2 Total Bilirubin 27.3 H* D AST 113 H ALT 64 H Alkaline Phosphatase 145 H Ammonia 69 H Lactate Dehydrogenase 280 H Total Protein 5.8 Albumin 2.4 L Globulin 3.4 Albumin/Globulin Ratio 0.7 L Peritoneal Color Peritoneal Appearance Peritoneal WBC Peritoneal RBC Periton Polynucl WBCs Periton Mononucl WBCs Peritoneal Tot Protein Peritoneal Albumin Peritoneal LDH Peritoneal Glucose Peritoneal Amylase Misc Test Result Platelets confirmed Blood Bank Comment FFP Ready 09/18/24 15:15 WBC RBC Hgb Hct MCV MCH MCHC RDW Std Deviation Plt Count Neut % (Auto) Lymph % (Auto) [place] % (Auto) Eos % (Auto) Baso % (Auto) Neut # (Auto) Lymph # (Auto) [place] # (Auto) Eos # (Auto) Baso # (Auto) Immature Gran # (Auto) Absolute Nucleated RBC Immature Gran % Nucleated RBC % Sodium Potassium Chloride Carbon Dioxide Anion Gap BUN Creatinine Estim Creat Clear Calc eGFR BUN/Creatinine Ratio Glucose Calculated Osmolality Calcium Corrected Calcium Phosphorus Magnesium Total Bilirubin AST ALT Alkaline Phosphatase Ammonia Lactate Dehydrogenase Total Protein Albumin Globulin Albumin/Globulin Ratio Peritoneal Color Yellow Peritoneal Appearance Clear Peritoneal WBC 1 Peritoneal RBC 12 Periton Polynucl WBCs 0 Periton Mononucl WBCs 100 Peritoneal Tot Protein < 2 Peritoneal Albumin < 1.0 Peritoneal LDH 82 Peritoneal Glucose 85 Peritoneal Amylase 353 Misc Test Result Blood Bank Comment Impressions Impression: Acute respiratory failure requiring mechanical ventilation 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 Hepatorenal syndrome Continue supportive care prognosis extremely poor ABG Interpretation ABG results: 08/28/24 08/29/24 09/03/24 22:40 10:05 15:24 ABG pH 7.41 7.50 H ABG pCO2 29 L 33 ABG pO2 69 L 63 L ABG HCO3 18 L 25 ABG O2 Saturation 94 94 ABG Base Excess -6 L 2 VBG pH 7.41 VBG pCO2 47 VBG pO2 30 VBG Base Excess 4 H 09/16/24 09/16/24 09/17/24 10:57 15:20 05:09 ABG pH 7.27 L 7.34 L 7.29 L ABG pCO2 48 40 46 ABG pO2 88 240 H D 64 L D ABG HCO3 22 21 22 ABG O2 Saturation 96 101 H 89 L ABG Base Excess -5 L -4 L -5 L VBG pH VBG pCO2 VBG pO2 VBG Base Excess 09/17/24 18:49 ABG pH 7.33 L ABG pCO2 41 ABG pO2 71 L ABG HCO3 22 ABG O2 Saturation 93 ABG Base Excess -4 L VBG pH VBG pCO2 VBG pO2 VBG Base Excess Assessment & Plan A&P Narrative # Acute upper GI bleed in the form of melena # Acute posthemorrhagic anemia # Acute hepatic encephalopathy # Chronic liver disease with thrombocytopenia abnormal liver function test and coagulopathy secondary to alcohol Plan Agree with the blood transfusion give patient 2 units of PRBC Octreotide infusion Lactulose and Xifaxan Consent will be obtained from the sister who makes that decision for fiberoptic esophagogastroduodenoscopy with possible therapeutic intervention under intravenous moderate sedation Prognosis guarded Thank you for the opportunity to participate in the care of this patient Time Spent With Patient Time: Total time spent is greater than 50% in coordination of care (as documented) at patient's floor/unit and/or counseling patient:
[2024-09-18] MEDS: Norepinephrine/NS 16mg/250ml 16 MG/250 ML BAG 36.17 MG IV (23:29)
[2024-09-19] VITALS (126 sets, daily range): BP systolic 71–149; BP diastolic 44–77; PULSE 58–79; RESP 7–21; TEMP 36.1–37.2; O2SAT 90–100; BMI 24.5
[2024-09-19] MEDS: VASOPRESSIN IN NS IVPB 20 UNIT/100 ML BAG 9 UNIT IV ×3 (01:30→21:29)
[2024-09-19] MEDS: PROPOFOL 1,000 MG IVPB 1,000 MG/100 ML VIAL 2.685 MG IV (01:30)
[2024-09-19] MEDS: LACTULOSE SYRUP 20 GM/30 ML UDC 30 GM NG ×4 (05:12→20:21)
[2024-09-19] MEDS: DEXTROSE 50%-WATER INJ 50 ML SYRINGE IV ×2 (05:18→07:51)
[2024-09-19 05:54] LABS: Basophils % (Auto) 0 % (0-2.5); Eosinophils # (Auto) 0.2 Thou/mm3 (0.0-0.5); Eosinophils % (Auto) 2 % (0-10); Immature Granulocytes % (Auto) 2 % (0-0); Immature Granulocytes Auto 0.21 Thou/mm3 (0.00-0.00); Lymphocytes # (Auto) 1.5 Thou/mm3 (1.0-4.8); Lymphocytes % (Auto) 10 % (10-50); Mean Corpuscular HGB Conc 33.7 g/dl (31.0-37.0); Mean Corpuscular Hemoglobin 32.2 pg (25.0-35.0); Mean Corpuscular Volume 96 fL (80-100); Monocytes # (Auto) 1.2 Thou/mm3 (0.0-0.8); Monocytes % (Auto) 9 % (0-12); Neutrophils # (Auto) 11.1 Thou/mm3 (1.8-7.7); Neutrophils % (Auto) 78 % (37-80); Nucleated Red Blood Cell # 0.03 Thou/mm3 (0.00-0.00); Nucleated Red Blood Cell % 0 /100 WBC (0); RDW Standard Deviation 71.8 fL (35.1-43.9); Red Blood Count 2.02 Miln/mm3 (4.50-5.90); White Blood Count 14.3 Thou/mm3 (3.8-10.6)
[2024-09-19] MEDS: Norepinephrine/NS 16mg/250ml 16 MG/250 ML BAG 41.463 MG IV (06:00)
[2024-09-19 06:01] LABS: Hematocrit 19.3 % (41.0-53.0); Hemoglobin 6.5 g/dL (13.5-16.0)
[2024-09-19 06:02] LABS: Platelet Count 26 Thou/mm3 (140-440)
[2024-09-19 06:15] LABS: Alanine Aminotransferase 47 U/L (10-49); Albumin, Serum 2.5 gm/dL (3.4-4.8); Albumin/Globulin Ratio 0.9 (1.2-2.2); Alkaline Phosphatase 115 U/L (46-116); Anion Gap 12 (7-16); Aspartate Amino Transferase 84 U/L (0-34); BUN/Creatinine Ratio 18 Ratio (12-20); Blood Urea Nitrogen 72 mg/dL (9-23); Calcium 8.4 mg/dL (8.3-10.6); Calcium (Corrected) 9.6 mg/dL (8.5-10.1); Carbon Dioxide 23.2 mMol/L (20.0-31.0); Chloride 106 mMol/L (98-107); Creatinine (Component) 3.9 mg/dL (0.6-1.3); Estimated Creatinine Clearance 18.6 mL/min (>60); Globulin 2.7 gm/dL (2.3-3.5); Glucose 185 mg/dL (74-106); Magnesium 2.1 mg/dL (1.6-2.6); Osmolality,Calculated 307 (275-295); Phosphorous 4.8 mg/dL (2.4-5.1); Potassium 3.4 mMol/L (3.4-5.1); Sodium 141 mMol/L (136-145); Total Protein 5.2 gm/dL (5.7-8.2); eGFR 15 See Note
[2024-09-19 06:21] LABS: Bilirubin,Total 26.1 mg/dL (0.3-1.2); Slide Review Platelets confirmed
[2024-09-19 07:35] LABS: Hematocrit 21.2 % (41.0-53.0)
[2024-09-19] MEDS: fentaNYL 2,500 MCG/250 ML BAG 2,500 MCG/250 ML BAG 27.5 MCG IV ×2 (08:12→17:56)
--- NOTE | 2024-09-19 08:22 | XR_ITS ---
Examination: Abdomen AP single view Technique: AP portable supine abdomen, single view Exam date and time: September 19, 2024 0838 hrs. Indications: Abdominal distention today. Findings: Significantly air distended stomach despite orogastric tube Prominent colonic ileus, especially air distended rectosigmoid No definite free air although the right hemidiaphragm is not included on these films Impression: Significantly air distended stomach Prominent colonic ileus
[2024-09-19 09:10] LABS: Hemoglobin 6.9 g/dL (13.5-16.0)
--- NOTE | 2024-09-19 09:55 | ESPR_ITS ---
Documentation for date of: 09/19/24 Subjective Subjective Interval history: Abdifatah Stack is a 74-year-old male with past medical history of HCV, alcoholic cirrhosis, esophageal varices, GERD, anxiety, and BPH who presented on 08/28 with AMS after being found by caregiver in [facility] dark-colored blood. During hospital course, received EGD on 09/01 which showed grade 1 varices (not large enough for band ligation), hemorrhagic gastritis, and hypertensive portal gastropathy with mucosal oozing as source of bleeding. Over past couple of days, noted to become more encephalopathic and developed worsening respiratory failure and required intubation and subsequently upgraded to ICU on 09/16. 09/17: Seen and examined at bedside in ICU. No acute overnight events reported. Patient's daughter, Ca, has declined to be assigned patient's medical surrogate decision-maker and will instead be patient's sister, Maggy. Sister states that she would like to pursue treatment at this time including dialysis and paracentesis. ABG showed pH 7.29, pCO2 46, P O2 64. Per Gunderson formula, expected pCO2 38-42 and so will increase VT from 400 to 420 and follow-up ABG showed improvement as pH increased from 7.29 to 7.33 and pCO2 decreased from 46 to 41. 09/18: Seen and examined at bedside in ICU. No acute overnight events reported. Underwent dialysis in a.m. and patient did not tolerate as HR decreased to 40s and BP decreased with increasing requirements in pressors. Attempted ultrafiltration only but continued to not tolerate with multiple PVCs seen on monitor and treatment terminated after approximately 25 minutes. Also underwent paracentesis with removal of approximately 550 cc of straw-colored fluid. Sample sent for analysis and culture and will follow-up tomorrow. Family updated regarding that patient could not tolerate dialysis. 09/19: Seen and examined at bedside in ICU. No acute overnight events reported. Hemoglobin noted to be 6.5 and platelets 26 and repeat H&H showed hemoglobin 6.9. 1 unit pRBC and 1 unit platelets ordered and to be transfused today. Bedside blood sugars noted to be as low as 30s-40s and responds well to D50 pushes - likely secondary to liver failure. Peritoneal fluid analysis showed virtually no WBCs and SAAG indicative of portal hypertension. Thus, marci HERNÁNDEZ'd. Continues to have firm abdomen despite paracentesis and KUB showed significantly air-distended stomach with OG tube in place on low intermittent suction. Miriam Ramos, updated regarding patient's clinical status and will update patient's sister, Maggy. Exam Vital Signs Temp Pulse Resp BP Pulse Ox O2 Del Method O2 Flow Rate 98.7 F 71 15 110/65 93 L Mechanical Ventilation 3 09/19/24 08:00 09/19/24 09:45 09/19/24 06:25 09/19/24 09:45 09/19/24 09:45 09/19/24 08:00 09/16/24 12:00 FiO2 39 09/19/24 08:00 Narrative Exam General: intubated, sedated, mechanically ventilated HEENT: scleral icterus, NC/AT, mucous membranes moist Cardiovascular: regular rate and rhythm, S1/S2 present, no murmurs appreciated Pulmonary: decreased right-sided breath sounds Abdominal: distended, firm Musculoskeletal: 2+ pitting bilateral lower extremity edema, normal ROM Skin: jaundiced, warm and dry, intact, no rashes Neuro: GCS 3T Objective Labs 09/19/24 06:20 09/19/24 05:30 Labs: Laboratory Results - last 24 hr 09/18/24 09/18/24 09/18/24 08:07 09:55 15:15 WBC RBC Hgb Hct MCV MCH MCHC RDW Std Deviation Plt Count Neut % (Auto) Lymph % (Auto) [place] % (Auto) Eos % (Auto) Baso % (Auto) Neut # (Auto) Lymph # (Auto) [place] # (Auto) Eos # (Auto) Baso # (Auto) Immature Gran # (Auto) Absolute Nucleated RBC Immature Gran % Nucleated RBC % Sodium Potassium Chloride Carbon Dioxide Anion Gap BUN Creatinine Estim Creat Clear Calc eGFR BUN/Creatinine Ratio Glucose Calculated Osmolality Calcium Corrected Calcium Phosphorus Magnesium Total Bilirubin AST ALT Alkaline Phosphatase Ammonia 69 H Lactate Dehydrogenase 280 H Total Protein Albumin Globulin Albumin/Globulin Ratio Peritoneal Color Yellow Peritoneal Appearance Clear Peritoneal WBC 1 Peritoneal RBC 12 Periton Polynucl WBCs 0 Periton Mononucl WBCs 100 Peritoneal Tot Protein < 2 Peritoneal Albumin < 1.0 Peritoneal LDH 82 Peritoneal Glucose 85 Peritoneal Amylase 353 Misc Test Result Crossmatch Blood Bank Comment FFP Ready 09/19/24 09/19/24 05:30 06:20 WBC 14.3 H D RBC 2.02 L Hgb 6.5 L* D 6.9 L* Hct 19.3 L* 21.2 L* MCV 96 MCH 32.2 MCHC 33.7 RDW Std Deviation 71.8 H Plt Count 26 L* D Neut % (Auto) 78 Lymph % (Auto) 10 [place] % (Auto) 9 Eos % (Auto) 2 Baso % (Auto) 0 Neut # (Auto) 11.1 H Lymph # (Auto) 1.5 [place] # (Auto) 1.2 H Eos # (Auto) 0.2 Baso # (Auto) 0.0 Immature Gran # (Auto) 0.21 H Absolute Nucleated RBC 0.03 H Immature Gran % 2 H Nucleated RBC % 0 Sodium 141 Potassium 3.4 Chloride 106 Carbon Dioxide 23.2 Anion Gap 12 BUN 72 H Creatinine 3.9 H Estim Creat Clear Calc 18.6 L eGFR 15 L BUN/Creatinine Ratio 18 Glucose 185 H D Calculated Osmolality 307 H Calcium 8.4 Corrected Calcium 9.6 Phosphorus 4.8 Magnesium 2.1 Total Bilirubin 26.1 H* D AST 84 H ALT 47 Alkaline Phosphatase 115 D Ammonia Lactate Dehydrogenase Total Protein 5.2 L Albumin 2.5 L Globulin 2.7 Albumin/Globulin Ratio 0.9 L Peritoneal Color Peritoneal Appearance Peritoneal WBC Peritoneal RBC Periton Polynucl WBCs Periton Mononucl WBCs Peritoneal Tot Protein Peritoneal Albumin Peritoneal LDH Peritoneal Glucose Peritoneal Amylase Misc Test Result Platelets confirmed Crossmatch See Detail Blood Bank Comment ABG Interpretation ABG results: 08/28/24 08/29/24 09/03/24 22:40 10:05 15:24 ABG pH 7.41 7.50 H ABG pCO2 29 L 33 ABG pO2 69 L 63 L ABG HCO3 18 L 25 ABG O2 Saturation 94 94 ABG Base Excess -6 L 2 VBG pH 7.41 VBG pCO2 47 VBG pO2 30 VBG Base Excess 4 H 09/16/24 09/16/24 09/17/24 10:57 15:20 05:09 ABG pH 7.27 L 7.34 L 7.29 L ABG pCO2 48 40 46 ABG pO2 88 240 H D 64 L D ABG HCO3 22 21 22 ABG O2 Saturation 96 101 H 89 L ABG Base Excess -5 L -4 L -5 L VBG pH VBG pCO2 VBG pO2 VBG Base Excess 09/17/24 18:49 ABG pH 7.33 L ABG pCO2 41 ABG pO2 71 L ABG HCO3 22 ABG O2 Saturation 93 ABG Base Excess -4 L VBG pH VBG pCO2 VBG pO2 VBG Base Excess Quality Measures Quality Measures none Advance care planning discussed with:: legal surragate and sibling Assessment & Plan Assessment Current Active Medications: Generic Name Dose Route Start Last Admin Trade Name Freq PRN Reason Stop Dose Admin Albuterol/Ipratropium 3 ml 08/28/24 20:24 09/12/24 19:57 Albuterol/Ipratropium (Duoneb) Rt Janessa 3 Ml Nebu INH 09/27/24 22:59 3 ml Q4HRRT PRN Administration Wheeze Atropine Sulfate 0.5 mg 09/18/24 10:10 Atropine Sulf Inj 0.1 Mg/Ml Syr 10 Ml IVP 10/18/24 10:09 Q3MIN PRN BRADYCARDIA (HR<50) Citric Acid/Sodium Citrate 30 ml 09/16/24 16:00 09/18/24 11:36 Citric Acid/Sodium Citr 15 Ml Udc (Bicitra) NG 10/16/24 15:59 30 ml DAILY JERSON Administration Dextrose 25 ml 09/15/24 06:05 09/16/24 05:12 Dextrose 50%-Water Inj 50 Ml Syringe IV 10/15/24 06:04 25 ml Q15MIN PRN Administration BG 50-70 responsive npo pt Dextrose 50 ml 09/15/24 06:05 09/19/24 07:51 Dextrose 50%-Water Inj 50 Ml Syringe IV 10/15/24 06:04 50 ml Q15MIN PRN Administration BG <50 OR BG <70 & pt unresponsive Folic Acid 1 mg 09/17/24 09:00 09/18/24 11:36 Folic Acid 1 Mg Tablet NG 10/17/24 08:59 1 mg QDAY JERSON Administration Glucagon 1 mg 09/15/24 06:05 Glucagon Inj 1 Mg Vial IM Q15MIN PRN BG <70, and no IV access Heparin Sodium (Porcine) 2,600 unit 09/18/24 09:00 09/18/24 10:43 Heparin Sod Inj 1000 Unit/Ml Vial 10 Ml INDWELLCAT 10/02/24 08:59 2,600 unit PRN PRN Administration DIALYSIS Propofol 1,000 mg in 100 mls @ 2.685 mls/hr 09/16/24 13:43 09/19/24 08:00 Diprivan Ivpb IV 10/16/24 13:42 5 mcg/kg/min .Q24H PRN 2.685 mls/hr PER PROTOCOL Titration Protocol 5 MCG/KG/MIN Fentanyl Citrate 2,500 mcg in 250 mls @ 2.5 mls/hr 09/16/24 13:44 09/19/24 08:12 Sublimaze Inj 2,500 Mcg/250 Ml Bag IV 09/21/24 13:43 275 mcg/hr .Q24H PRN 27.5 mls/hr PER PROTOCOL Administration Protocol 25 MCG/HR Vasopressin/Sodium Chloride 20 unit in 100 mls @ 9 mls/hr 09/16/24 16:43 09/19/24 01:30 Vasostrict/Ns Ivpb IV 10/16/24 16:42 0.03 unit/min .Q11H7M PRN 9 mls/hr PER PROTOCOL Administration Protocol 0.03 UNIT/MIN Albumin Human 25 gm in 100 mls @ 100 mls/hr 09/18/24 07:22 09/18/24 11:00 Albuminar-25 Ivpb IV 09/21/24 07:21 Infused QDAY JERSON Infusion Phenylephrine HCl 40 mg/ 100 mls @ 7.058 mls/hr 09/18/24 10:12 09/18/24 22:00 Sodium Chloride IV 10/18/24 10:11 0 mcg/kg/min .[id number] PRN 0 mls/hr Per Sepsis Protocol Titration Protocol 0.5 MCG/KG/MIN Norepinephrine Bitartrate 16 mg in 250 mls @ 4.411 mls/hr 09/18/24 15:47 09/19/24 08:00 Levophed In Ns 16mg/250ml IV 10/18/24 15:46 0.45 mcg/kg/min .Q24H PRN 39.698 mls/hr PER PROTOCOL Titration Protocol 0.05 MCG/KG/MIN Octreotide Acetate 1,000 mcg/ 102 mls @ 5.1 mls/hr 09/19/24 08:56 Sodium Chloride IV 09/24/24 08:56 .Q20H JERSON Protocol 50 MCG/HR Lactulose 30 gm 09/16/24 20:08 09/19/24 05:12 Lactulose Syrup 20 Gm/30 Ml Udc NG 10/16/24 18:59 30 gm QID JERSON Administration Protocol Phytonadione 10 mg 09/16/24 10:00 09/18/24 11:36 Phytonadione Inj 10 Mg/Ml Amp SC 09/19/24 09:59 10 mg QDAY JERSON Administration Propranolol HCl 10 mg 09/16/24 21:00 Propranolol 10 Mg Tablet NG 10/16/24 20:59 BID JERSON Rifaximin 550 mg 09/16/24 21:00 09/18/24 20:53 Rifaximin 550 Mg Tablet NG 09/23/24 20:59 550 mg BID JERSON Administration Sevelamer Carbonate 0.8 gm 09/17/24 08:00 09/18/24 08:50 Sevelamer Carbonate 0.8 Gm Packet (Non-Formulary) NG 10/17/24 07:59 Not Given TIDWM JERSON Protocol Sodium Chloride 5 ml 08/28/24 17:29 08/28/24 18:47 Sodium Chloride Rt Janessa 0.9% 3 Ml Nebu INH 09/27/24 17:28 3 ml PRN PRN Administration SOLN Thiamine HCl 100 mg 09/17/24 09:00 09/18/24 11:36 Thiamine 100 Mg Tablet NG 10/17/24 08:59 100 mg QDAY JERSON Administration Plan Abdifatah Stack is a 74-year-old male with past medical history of HCV, alcoholic cirrhosis, esophageal varices, GERD, anxiety, and BPH who presented on 08/28 with AMS after being [facility]. During hospital course, received EGD on 09/01 which showed grade 1 varices (not large enough for band ligation), hemorrhagic gastritis, and hypertensive portal gastropathy with mucosal oozing as source of bleeding. Over past couple of days, noted to become more encephalopathic and developed worsening respiratory failure and required intubation and subsequently upgraded to ICU on 09/16. Neurological #Acute encephalopathy, likely hepatic/metabolic Baseline, conversational and oriented x 3. On admission, encephalopathic and A&O x 0 that improved throughout hospitalization. However, throughout last couple of days was noted to become more encephalopathic. Repeat CT head on 09/16: Negative for acute hemorrhage, mass effect, or midline shift Ammonia 54, BUN 61, ABG showed pH 7.27. ? Lactulose 30 g 4 times daily ? Rifaximin 550 mg twice daily ? Aspiration precautions, head of bed elevation Cardiovascular #Shock, hypovolemic due to third spacing in setting of cirrhosis vs distributive (septic), resolved History of cirrhosis with prominent ascites seen on CT A/P on 09/16. #Bradycardia, in setting of propofol Pulmonary #Acute respiratory failure requiring intubation GCS 6 and respiratory distress prior to intubation ? Vent settings: VT 550, RR 15, PEEP 5, FiO2 40% #Aspiration pneumonia, resolved With AMS and CXR showed large right-sided pleural effusion. Completed 7 days of Augmentin (08/30 to 09/06). #History of COPD Home medication Trelegy inhaler ? DuoNebs as needed Gastrointestinal #Acute blood loss anemia secondary to GI bleed, resolved #Esophageal varices, resolved Found unconscious in a pool of coffee-ground emesis ? Hgb 6.5 this AM and repeat H&H showed 6.9 ? Plan to transfuse 1 unit pRBC and 1 unit platelets ? Continue to monitor daily H&H #Acute on chronic liver failure with coagulopathy and thrombocytopenia #Portal hypertension with esophageal varices, hypertensive portal gastropathy and ascites #Hyperbilirubinemia CMV IgG positive, IgM negative. EBV IgG positive, IgM negative. HAV negative, HBV antigen nonreactive. HCV antibody reactive, RNA negative. HSV I/II IgG positive, HIV negative. EGD: diffuse hypertensive portal gastropathy with mucosal oozing of blood and 1+ esophageal varices not large enough for band ligation. Abdominal US on 09/11: gallbladder sludge, gallbladder wall thickened 0.5 cm, cirrhosis and mild ascites. Meld?NA score 38 points -> 65-66% 90-day mortality Child?Hernandez class C, 12 points -> life expectancy 1-3 years, abdominal surgery mortality 82% Madrey score 42 -> may benefit from steroids Completed N-acetylcysteine IV daily on 09/13 for acute on chronic liver failure Completed 3 days of Phytonadione 10 mg SC daily ffrom 09/10-09/13 ? Status post paracentesis on 09/18 with removal of 550 cc straw-colored fluid ? SAAG of 1.4, which is > 1.1 and highly suggestive of portal hypertension ? 1 WBC in peritoneal fluid -> no SBP Renal #Respiratory acidosis #Non anion gap metabolic acidosis Grunting and responsive to pain only. Had 1 bowel movements in the past 48 hours. ? Lactulose and rifaxamin as above ? Aspiration precautions, head of bed elevation ? Continue Bicitra #Acute kidney injury, likely prerenal in setting of cirrhosis (hepatorenal syndrome) Baseline Cr 0.5 Urine creatinine 216, urine random protein 100, urine sodium <15, urine potassium 50, urine chloride <20 Renal US 09/08: no hydronephrosis, no significant cortical thinning Underwent dialysis on 09/18 but patient did not tolerate and will likely not be able to tolerate moving forward. ? Octreotide 09/13-09/18 ? Pressors as noted above ? Albumin ? Nephrology consulted, appreciate recommendations ? Renally dose medications and avoid nephrotoxic agents Heme/Onc #Acute blood loss anemia, stable ? Continue to monitor daily CBC Endocrine #Subclinical hypothyroidism TSH 0.39, T4 0.84 Likely normal based on patient age Infectious disease #? Spontaneous bacterial peritonitis, ruled out WBC uptrending, though no fevers. Marci HERNÁNDEZ'hussein. Hospital management: Disposition: critically ill in ICU Drips: fentanyl, levophed, vasopressin Fluids: none Diet: NPO Lines: PIV, temp dialysis catheter, OG tube DVT prophylaxis: SCDs Garcia: placed CODE STATUS: DNR ----- Plan discussed with attending physician Dr. Heath Murphy MD PGY-1 Internal Medicine Attending Provider Attestation/Addendum Patient seen and examined with resident, Edgar Murphy MD. I agree with the findings, assessment, and plan of care as documented except for differences below. Patient continues to be difficult to ventilate due to biting of the tube as well as abnormal synchrony. Was placed on high-dose fentanyl overnight and initiation of propofol which further worsened his hemodynamics. We have discontinued the propofol and are weaning slowly on fentanyl. Will adjust sedation regimen as needed. Fluid analysis from paracentesis yesterday proved negative for SBP. Patient has been adequately treated with IV antibiotics and we will stop that now. Patient's mentation continues to be limited with lower GI output despite appropriate dosing of lactulose but via NG tube as well as SD. Patient with significant abdominal bloating at this point and we will discontinue ongoing administration of medications. NG tube with low intermittent wall suction to decompress the upper GI tract. Resident physician staff contacted family for further care fixation of ongoing goals of care. A understanding of his overall prognosis but is surrogate decision maker, sister, had surgery yesterday and her daughter at this point would not like to change anything. We will continue all supportive care with appropriate low tidal volume mechanical ventilation, appropriate sedation, hold off on tube feeding even trickle given hide vasopressor requirements at this point. Remains on appropriate prophylaxis. Will transfuse 1 unit PRBC for hemoglobin of 6.9 on recheck. No suspicion of active bleeding given no output from GI tract via NG tube or per rectum. Patient with slow improvement in hemodynamics after discontinuation of propofol this morning. Patient unfortunately did not tolerate hemodialysis yesterday?continue with octreotide, albumin, and maintenance of MAP goal to optimize for hepatorenal syndrome. Fluid was also removed from the abdomen adequately yesterday with decompression. Total critical care time: Personally spent 35 minutes for review of physiologic parameters, directed plan of care throughout the day, and treatment adjustments and mechanical relation/sedation. This is exclusive of time spent teaching housestaff or performing any separate billable procedures. Patient continues to require critical care services for acute respiratory failure and decompensated liver cirrhosis with hepatic encephalopathy. Patient remains at high risk for mortality and further morbidity warranting ongoing management and care will be available in the intensive care unit.
[2024-09-19] MEDS: THIAMINE 100 MG TABLET NG (10:47)
[2024-09-19] MEDS: FOLIC ACID 1 MG TABLET NG (10:47)
[2024-09-19] MEDS: CITRIC ACID/SODIUM CITR 15 ML UDC (BICITRA) 30 ML NG (10:48)
[2024-09-19] MEDS: PHYTONADIONE INJ 10 MG/ML AMP SC (10:48)
[2024-09-19] MEDS: OCTREOTIDE ACET INJ 1,000 MCG in SODIUM CHLORIDE 0.9% 100 ML 5.1 MCG IV (10:50)
[2024-09-19] MEDS: rifaximin 550 MG TABLET NG ×2 (10:50→20:21)
[2024-09-19] MEDS: ALBUMIN HUMAN 25% IVPB 25 GM/100 ML BTL IV (10:51)
[2024-09-19] MEDS: DEXTROSE 50%-WATER INJ 50 ML SYRINGE 25 ML IV ×2 (11:19→16:22)
--- NOTE | 2024-09-19 11:35 | PD.NEPHPROG ---
Documentation for date of: 09/19/24 Subjective Subjective Interval history: Chart review done. Mr. Stack is a 74-year-old male with past medical history of liver cirrhosis secondary to alcohol use disorder, esophageal varices, ?Asthma/COPD, GERD, anxiety and BPH presented to [facility] on 08/28/2024 with a chief complaint of altered mental status. per EMS patient was found to be naked and altered. Noted to have dark blood all over the floor. During the hospital course patient had a GI bleed and was seen by Dr. Hall. Also noted to have metabolic encephalopathy-lactulose, rifaximin were initiated. For the last 24 hours his urine output has dropped significantly and renal consultation was requested. CT brain was negative. 09/08/2024 patient currently seen in telemetry.His current medications included folic acid, lactulose, Protonix, propranolol, rifaximin, thiamine.WBC 11.9, hemoglobin 9.5, platelets 131. Sodium 137, potassium 3.3, BUN 43, creatinine 2.9, calcium 9, phosphorus 3.9, total bilirubin 15.2, AST 132, ALT 53, albumin 1.7. Urine showed concentrated urine with blood and bilirubin. Urine sodium less than 15. Talk screen was negative. Hep panel showed AB and AB-. Hep C positive. Renal ultrasound this afternoon showed no hydronephrosis. No cortical thinning consistent with normal kidneys. Head CT on admission was negative. 09/09/2024 patient currently seen in telemetry. Today he seems to be more alert and awake. Last night hospitalist team called-patient complaining of abdominal pain and shortness of breath. Chest x-ray showed dilated bowel loops. Recommended KUB which showed ileus-NG tube was inserted overnight. Patient currently seems to be feeling little bit better. Denies any abdominal pain. Hemoglobin 9, platelets 109, WBC 11, sodium 137, potassium 3.4, BUN 44, creatinine 3.6, GFR 17, bilirubin significantly elevated to 19, AST 113, ALT 48, alk phos 155, albumin 2.1 urine sodium less than 15 urine output 225 mL/day Noted team started the patient on steroids. Patient has a decompensated liver cirrhosis. Hep C positive. Viral load pending. Dr. Hall on the case. Patient currently on albumin, midodrine, normal saline to rule out hepatorenal syndrome. Will continue the same for another 24 hours. If no improvement then HRS 1 diagnosis will be made 09/10/2024 patient currently seen in telemetry. He is having breakfast. Denies any chest pain, shortness of breath. More alert and awake. Made 500 mL urine last night. Blood sugar 109. Blood pressure 100/53, heart rate 69. WBC 12.3, hemoglobin 8.2, platelets 94. Sodium 137, potassium 3.4, bicarbonate 18.8, BUN 56, creatinine 3.9, glucose 133, calcium 9.1, phosphorus 5.1, magnesium 2.6, total bilirubin 20.9, AST 53, ALT 43, alk phos 133, albumin 2.4. He is currently on midodrine, normal saline at 125 mL/h, albumin 3 times daily, rifaximin. 09/16/2024 Patient currently seen in telemetry. This morning he seems to be slow in response. Significant jaundice noted. Creatinine improved to 3.1. Urine output overnight more than [address] Coulter-will do gentle IV fluids. Patient not taking his lactulose. Dr. Coulter planning to place a rectal tube with the lactulose pr. 09/18/2024 patient currently seen in ICU. Currently on pressors. Urine output started to decrease. Patient currently on ventilator. Labs, medications reviewed. ICU team placed Vas-Cath. Family requesting all aggressive measures including dialysis despite explaining poor prognosis and not a candidate for outpatient dialysis. Dialysis ordered today. Patient on dialysis. 09/19/2024 patient currently seen in ICU. Unable to tolerate dialysis yesterday due to bradycardia and hypotension. Unfortunately is not a candidate for dialysis and cannot proceed with further dialysis sessions. Remains on ventilator. ICU team planning to have a family meeting-patient might need comfort care. Seems like going towards multisystem organ failure (encephalopathy, respiratory failure, liver failure, kidney failure, coagulopathy, GI bleed). Prognosis remains grim. Currently he is DNR. Review of Systems Review of Systems ROS Unobtainable: due to endotracheal tube Narrative Review of Systems: Exam Vital Signs Temp Pulse Resp BP Pulse Ox O2 Del Method O2 Flow Rate 37.1 C 68 15 114/57 L 94 L Mechanical Ventilation 3 09/19/24 08:00 09/19/24 10:17 09/19/24 06:25 09/19/24 10:17 09/19/24 10:17 09/19/24 08:00 09/16/24 12:00 FiO2 40 09/19/24 10:17 Narrative Exam GENERAL APPEARANCE patient currently seen in ICU. On vent. NECK: Neck supple, no JVD or bruit CARDIOVASCULAR: Heart regular, no murmurs LUNGS/CHEST: Few rhonchi noted bilaterally ABDOMEN: Distended with good bowel sounds. EXTREMITIES: 2+ edema noted in the extremities SKIN: Jaundiced MUSCULOSKELETAL: In bed NEUROLOGICAL : Intubated, sedated Objective Labs 09/20/24 05:15 09/20/24 05:15 Labs: Laboratory Results - last 24 hr 09/18/24 09/18/24 09/19/24 09:55 15:15 05:30 WBC 14.3 H D RBC 2.02 L Hgb 6.5 L* D Hct 19.3 L* MCV 96 MCH 32.2 MCHC 33.7 RDW Std Deviation 71.8 H Plt Count 26 L* D Neut % (Auto) 78 Lymph % (Auto) 10 [place] % (Auto) 9 Eos % (Auto) 2 Baso % (Auto) 0 Neut # (Auto) 11.1 H Lymph # (Auto) 1.5 [place] # (Auto) 1.2 H Eos # (Auto) 0.2 Baso # (Auto) 0.0 Immature Gran # (Auto) 0.21 H Absolute Nucleated RBC 0.03 H Immature Gran % 2 H Nucleated RBC % 0 Sodium 141 Potassium 3.4 Chloride 106 Carbon Dioxide 23.2 Anion Gap 12 BUN 72 H Creatinine 3.9 H Estim Creat Clear Calc 18.6 L eGFR 15 L BUN/Creatinine Ratio 18 Glucose 185 H D Calculated Osmolality 307 H Calcium 8.4 Corrected Calcium 9.6 Phosphorus 4.8 Magnesium 2.1 Total Bilirubin 26.1 H* D AST 84 H ALT 47 Alkaline Phosphatase 115 D Lactate Dehydrogenase 280 H Total Protein 5.2 L Albumin 2.5 L Globulin 2.7 Albumin/Globulin Ratio 0.9 L Peritoneal Color Yellow Peritoneal Appearance Clear Peritoneal WBC 1 Peritoneal RBC 12 [place] Polynucl WBCs 0 [place] Mononucl WBCs 100 Peritoneal Tot Protein < 2 Peritoneal Albumin < 1.0 Peritoneal LDH 82 Peritoneal Glucose 85 Peritoneal Amylase 353 Misc Test Result Platelets confirmed Blood Type Antibody Screen Antibody Identification Crossmatch Blood Bank Wristband ID 09/19/24 06:20 WBC RBC Hgb 6.9 L* Hct 21.2 L* MCV MCH MCHC RDW Std Deviation Plt Count Neut % (Auto) Lymph % (Auto) [place] % (Auto) Eos % (Auto) Baso % (Auto) Neut # (Auto) Lymph # (Auto) [place] # (Auto) Eos # (Auto) Baso # (Auto) Immature Gran # (Auto) Absolute Nucleated RBC Immature Gran % Nucleated RBC % Sodium Potassium Chloride Carbon Dioxide Anion Gap BUN Creatinine Estim Creat Clear Calc eGFR BUN/Creatinine Ratio Glucose Calculated Osmolality Calcium Corrected Calcium Phosphorus Magnesium Total Bilirubin AST ALT Alkaline Phosphatase Lactate Dehydrogenase Total Protein Albumin Globulin Albumin/Globulin Ratio Peritoneal Color Peritoneal Appearance Peritoneal WBC Peritoneal RBC Periton Polynucl WBCs Periton Mononucl WBCs Peritoneal Tot Protein Peritoneal Albumin Peritoneal LDH Peritoneal Glucose Peritoneal Amylase Misc Test Result Blood Type O Positive Antibody Screen POSITIVE Antibody Identification Anti-E Crossmatch See Detail Blood Bank Wristband ID Yes ABG Interpretation ABG results: 08/28/24 08/29/24 09/03/24 22:40 10:05 15:24 ABG pH 7.41 7.50 H ABG pCO2 29 L 33 ABG pO2 69 L 63 L ABG HCO3 18 L 25 ABG O2 Saturation 94 94 ABG Base Excess -6 L 2 VBG pH 7.41 VBG pCO2 47 VBG pO2 30 VBG Base Excess 4 H 09/16/24 09/16/24 09/17/24 10:57 15:20 05:09 ABG pH 7.27 L 7.34 L 7.29 L ABG pCO2 48 40 46 ABG pO2 88 240 H D 64 L D ABG HCO3 22 21 22 ABG O2 Saturation 96 101 H 89 L ABG Base Excess -5 L -4 L -5 L VBG pH VBG pCO2 VBG pO2 VBG Base Excess 09/17/24 18:49 ABG pH 7.33 L ABG pCO2 41 ABG pO2 71 L ABG HCO3 22 ABG O2 Saturation 93 ABG Base Excess -4 L VBG pH VBG pCO2 VBG pO2 VBG Base Excess Assessment & Plan Assessment and plan (1) Acute renal failure (ARF): Status: Acute (2) Acute upper gastrointestinal bleeding: Status: Acute (3) Cirrhosis of liver: Status: Acute (4) Hepatic encephalopathy: Status: Acute (5) Anemia: Status: Acute Additional Assessment & Plan Additional Plan: (1) Acute renal failure (ARF): Status: Acute Assessment and plan: Acute renal failure with worsening renal function and decreased urine output-rule out hepatorenal syndrome versus prerenal azotemia// ATN with fluctuations in blood pressure. Patient was given as needed diuretics. Currently on rifaximin, albumin, midodrine, octreotide. 09/19/2024 Vas-Cath placed by ICU team. ICU team had a long conversation with family regarding poor prognosis. Patient not a liver transplant candidate. Despite dialysis outcomes seems dismal. Worsening liver failure. Family requesting all aggressive measures and dialysis was offered yesterday. However patient could not tolerate dialysis due to bradycardia and hypotension. In fact he made him worse hemodynamically. At this point cannot offer any further dialysis sessions. ICU team planning to discuss with family regarding comfort care which seems to be appropriate. His prognosis remains very poor. Patient currently seems to be in multisystem organ failure. Critical care time spent more than 35 minutes regarding plan of care and disease management. (2) Acute upper gastrointestinal bleeding: Status: Acute Assessment and plan: Dr. Hall on the case. On PPI (3) Cirrhosis of liver: Status: Acute Assessment and plan: Patient seems to have decompensated liver cirrhosis with GI bleed, varices, hepatic encephalopathy, worsening renal function, thrombocytopenia, anemia. GI on the case. On lactulose, rifaximin, octreotide patient has a prolonged hospital course for the last couple of weeks Patient did receive steroids. Patient received couple of doses of NAC. No improvement in liver function (4) Hepatic encephalopathy: Status: Acute Assessment and plan: On lactulose- on vent (5) Anemia: Status: Acute Assessment and plan: As needed transfusions 6) acute respiratory failure-on ventilator 7) sepsis-on pressors. Plan of care discussed with ICU team. Quality - progress note Quality Measures Quality Measures: VTE prophylaxis Reason for Continued Stay Reason for Continued Stay: further monitoring
[2024-09-19] MEDS: Norepinephrine/NS 16mg/250ml 16 MG/250 ML BAG 36.17 MG IV (12:47)
--- NOTE | 2024-09-19 14:39 | PC.SS ---
SS update: Patient on pressors. Urine output started to decrease. Patient currently on ventilator.
[2024-09-19] MEDS: PROPOFOL 1,000 MG IVPB 1,000 MG/100 ML VIAL 18.795 MG IV (16:21)
[2024-09-19 16:51] LABS: Ammonia 147 uMol/L (11-32)
[2024-09-19] MEDS: Norepinephrine/NS 16mg/250ml 16 MG/250 ML BAG 34.405 MG IV (19:23)
[2024-09-19] MEDS: PROPOFOL 1,000 MG IVPB 1,000 MG/100 ML VIAL 16.11 MG IV (21:06)
[2024-09-19 22:21] LABS: Basophils % (Auto) 0 % (0-2.5); Eosinophils # (Auto) 0.4 Thou/mm3 (0.0-0.5); Eosinophils % (Auto) 3 % (0-10); Hematocrit 23.4 % (41.0-53.0); Immature Granulocytes % (Auto) 2 % (0-0); Immature Granulocytes Auto 0.21 Thou/mm3 (0.00-0.00); Lymphocytes # (Auto) 1.3 Thou/mm3 (1.0-4.8); Lymphocytes % (Auto) 9 % (10-50); Mean Corpuscular HGB Conc 33.3 g/dl (31.0-37.0); Mean Corpuscular Hemoglobin 31.8 pg (25.0-35.0); Mean Corpuscular Volume 96 fL (80-100); Monocytes # (Auto) 0.8 Thou/mm3 (0.0-0.8); Monocytes % (Auto) 6 % (0-12); Neutrophils # (Auto) 10.7 Thou/mm3 (1.8-7.7); Neutrophils % (Auto) 80 % (37-80); Nucleated Red Blood Cell # 0.06 Thou/mm3 (0.00-0.00); Nucleated Red Blood Cell % 0 /100 WBC (0); RDW Standard Deviation 72.4 fL (35.1-43.9); Red Blood Count 2.45 Miln/mm3 (4.50-5.90); White Blood Count 13.4 Thou/mm3 (3.8-10.6)
[2024-09-19 22:29] LABS: Hemoglobin 7.8 g/dL (13.5-16.0)
[2024-09-19 22:30] LABS: Platelet Count 25 Thou/mm3 (140-440)
--- NOTE | 2024-09-19 22:38 | PD.IMPROG ---
Documentation for date of: 09/19/24 Subjective Subjective Interval history: Hemoglobin hematocrit did drop to 6.9 and 21.2 requiring blood transfusion Now it is up to 7.8 and 23.4 Exam Vital Signs Temp Pulse Resp BP Pulse Ox O2 Del Method O2 Flow Rate 97.1 F 60 10 L 111/56 L 96 Mechanical Ventilation 3 09/19/24 21:46 09/19/24 22:00 09/19/24 21:46 09/19/24 22:00 09/19/24 22:00 09/19/24 16:00 09/16/24 12:00 FiO2 45 09/19/24 20:00 Objective Labs 09/19/24 21:44 09/19/24 05:30 Labs: Laboratory Results - last 24 hr 09/19/24 09/19/24 09/19/24 05:30 06:20 16:20 WBC 14.3 H D RBC 2.02 L Hgb 6.5 L* D 6.9 L* Hct 19.3 L* 21.2 L* MCV 96 MCH 32.2 MCHC 33.7 RDW Std Deviation 71.8 H Plt Count 26 L* D Neut % (Auto) 78 Lymph % (Auto) 10 [place] % (Auto) 9 Eos % (Auto) 2 Baso % (Auto) 0 Neut # (Auto) 11.1 H Lymph # (Auto) 1.5 [place] # (Auto) 1.2 H Eos # (Auto) 0.2 Baso # (Auto) 0.0 Immature Gran # (Auto) 0.21 H Absolute Nucleated RBC 0.03 H Immature Gran % 2 H Nucleated RBC % 0 Sodium 141 Potassium 3.4 Chloride 106 Carbon Dioxide 23.2 Anion Gap 12 BUN 72 H Creatinine 3.9 H Estim Creat Clear Calc 18.6 L eGFR 15 L BUN/Creatinine Ratio 18 Glucose 185 H D Calculated Osmolality 307 H Calcium 8.4 Corrected Calcium 9.6 Phosphorus 4.8 Magnesium 2.1 Total Bilirubin 26.1 H* D AST 84 H ALT 47 Alkaline Phosphatase 115 D Ammonia 147 H* Total Protein 5.2 L Albumin 2.5 L Globulin 2.7 Albumin/Globulin Ratio 0.9 L Misc Test Result Platelets confirmed Blood Type O Positive Antibody Screen POSITIVE Antibody Identification Anti-E Crossmatch See Detail Blood Bank Wristband ID Yes Blood Bank Comment PLATP Ready 09/19/24 21:44 WBC 13.4 H RBC 2.45 L Hgb 7.8 L Hct 23.4 L MCV 96 MCH 31.8 MCHC 33.3 RDW Std Deviation 72.4 H Plt Count 25 L* Neut % (Auto) 80 Lymph % (Auto) 9 L [place] % (Auto) 6 Eos % (Auto) 3 Baso % (Auto) 0 Neut # (Auto) 10.7 H Lymph # (Auto) 1.3 [place] # (Auto) 0.8 Eos # (Auto) 0.4 Baso # (Auto) 0.0 Immature Gran # (Auto) 0.21 H Absolute Nucleated RBC 0.06 H Immature Gran % 2 H Nucleated RBC % 0 Sodium Potassium Chloride Carbon Dioxide Anion Gap BUN Creatinine Estim Creat Clear Calc eGFR BUN/Creatinine Ratio Glucose Calculated Osmolality Calcium Corrected Calcium Phosphorus Magnesium Total Bilirubin AST ALT Alkaline Phosphatase Ammonia Total Protein Albumin Globulin Albumin/Globulin Ratio Misc Test Result Blood Type Antibody Screen Antibody Identification Crossmatch Blood Bank Wristband ID Blood Bank Comment Impressions Impression: Upper GI bleed secondary to mucosal oozing of blood due to advanced portal hypertension in setting of chronic liver disease Continue supportive care ABG Interpretation ABG results: 08/28/24 08/29/24 09/03/24 22:40 10:05 15:24 ABG pH 7.41 7.50 H ABG pCO2 29 L 33 ABG pO2 69 L 63 L ABG HCO3 18 L 25 ABG O2 Saturation 94 94 ABG Base Excess -6 L 2 VBG pH 7.41 VBG pCO2 47 VBG pO2 30 VBG Base Excess 4 H 09/16/24 09/16/24 09/17/24 10:57 15:20 05:09 ABG pH 7.27 L 7.34 L 7.29 L ABG pCO2 48 40 46 ABG pO2 88 240 H D 64 L D ABG HCO3 22 21 22 ABG O2 Saturation 96 101 H 89 L ABG Base Excess -5 L -4 L -5 L VBG pH VBG pCO2 VBG pO2 VBG Base Excess 09/17/24 18:49 ABG pH 7.33 L ABG pCO2 41 ABG pO2 71 L ABG HCO3 22 ABG O2 Saturation 93 ABG Base Excess -4 L VBG pH VBG pCO2 VBG pO2 VBG Base Excess Assessment & Plan A&P Narrative # Acute upper GI bleed in the form of melena # Acute posthemorrhagic anemia # Acute hepatic encephalopathy # Chronic liver disease with thrombocytopenia abnormal liver function test and coagulopathy secondary to alcohol Plan Agree with the blood transfusion give patient 2 units of PRBC Octreotide infusion Lactulose and Xifaxan Consent will be obtained from the sister who makes that decision for fiberoptic esophagogastroduodenoscopy with possible therapeutic intervention under intravenous moderate sedation Prognosis guarded Thank you for the opportunity to participate in the care of this patient Time Spent With Patient Time: Total time spent is greater than 50% in coordination of care (as documented) at patient's floor/unit and/or counseling patient:
[2024-09-19 23:31] LABS: INR 2.4 (0.9-1.3); Prothrombin Time 24.7 Seconds (9.0-12.2)
[2024-09-19 23:52] LABS: Fibrinogen 77 mg/dL (175-375)
[2024-09-20] VITALS (102 sets, daily range): BP systolic 81–146; BP diastolic 46–74; PULSE 47–71; RESP 6–11; TEMP 35.9–36.1; O2SAT 86–99; BMI 31.1
--- NOTE | 2024-09-20 00:45 | PC.NURSE ---
Patient referred to donor network, case #[id number], per David patient is not eligible for organ donation but potential tissue donation, he stated to call back donor network if patient passes.
[2024-09-20] MEDS: DEXTROSE 50%-WATER INJ 50 ML SYRINGE 25 ML IV (01:55)
[2024-09-20] MEDS: Norepinephrine/NS 16mg/250ml 16 MG/250 ML BAG 27.348 MG IV (03:28)
[2024-09-20] MEDS: PROPOFOL 1,000 MG IVPB 1,000 MG/100 ML VIAL 16.11 MG IV (03:31)
[2024-09-20] MEDS: OCTREOTIDE ACET INJ 1,000 MCG in SODIUM CHLORIDE 0.9% 100 ML 5.1 MCG IV (03:53)
[2024-09-20] MEDS: fentaNYL 2,500 MCG/250 ML BAG 2,500 MCG/250 ML BAG 22.5 MCG IV ×2 (04:49→16:42)
[2024-09-20] MEDS: LACTULOSE SYRUP 20 GM/30 ML UDC 30 GM NG ×4 (05:05→20:24)
[2024-09-20 05:39] LABS: Basophils % (Auto) 0 % (0-2.5); Eosinophils # (Auto) 0.5 Thou/mm3 (0.0-0.5); Eosinophils % (Auto) 4 % (0-10); Hematocrit 23.7 % (41.0-53.0); Immature Granulocytes % (Auto) 1 % (0-0); Immature Granulocytes Auto 0.15 Thou/mm3 (0.00-0.00); Lymphocytes # (Auto) 1.4 Thou/mm3 (1.0-4.8); Lymphocytes % (Auto) 10 % (10-50); Mean Corpuscular HGB Conc 33.3 g/dl (31.0-37.0); Mean Corpuscular Hemoglobin 31.7 pg (25.0-35.0); Mean Corpuscular Volume 95 fL (80-100); Monocytes # (Auto) 1.1 Thou/mm3 (0.0-0.8); Monocytes % (Auto) 8 % (0-12); Neutrophils # (Auto) 10.7 Thou/mm3 (1.8-7.7); Neutrophils % (Auto) 77 % (37-80); Nucleated Red Blood Cell # 0.03 Thou/mm3 (0.00-0.00); Nucleated Red Blood Cell % 0 /100 WBC (0); Red Blood Count 2.49 Miln/mm3 (4.50-5.90); White Blood Count 13.9 Thou/mm3 (3.8-10.6)
[2024-09-20 05:46] LABS: Hemoglobin 7.9 g/dL (13.5-16.0); Platelet Count 22 Thou/mm3 (140-440)
[2024-09-20 05:54] LABS: Slide Review Platelets confirmed
[2024-09-20 06:27] LABS: Alanine Aminotransferase 45 U/L (10-49); Albumin, Serum 2.6 gm/dL (3.4-4.8); Albumin/Globulin Ratio 0.9 (1.2-2.2); Alkaline Phosphatase 126 U/L (46-116); Anion Gap 12 (7-16); Aspartate Amino Transferase 72 U/L (0-34); BUN/Creatinine Ratio 19 Ratio (12-20); Blood Urea Nitrogen 68 mg/dL (9-23); Calcium 8.8 mg/dL (8.3-10.6); Calcium (Corrected) 9.9 mg/dL (8.5-10.1); Carbon Dioxide 22.4 mMol/L (20.0-31.0); Chloride 110 mMol/L (98-107); Creatinine (Component) 3.5 mg/dL (0.6-1.3); Estimated Creatinine Clearance 21.1 mL/min (>60); Globulin 2.9 gm/dL (2.3-3.5); Glucose 82 mg/dL (74-106); Osmolality,Calculated 305 (275-295); Phosphorous 4.8 mg/dL (2.4-5.1); Potassium 3.1 mMol/L (3.4-5.1); Sodium 144 mMol/L (136-145); Total Protein 5.5 gm/dL (5.7-8.2); eGFR 17 See Note
[2024-09-20 06:28] LABS: Ammonia 135 uMol/L (11-32)
[2024-09-20 06:44] LABS: Bilirubin,Total 27.3 mg/dL (0.3-1.2)
[2024-09-20] MEDS: FOLIC ACID 1 MG TABLET NG (08:57)
[2024-09-20] MEDS: THIAMINE 100 MG TABLET NG (08:57)
[2024-09-20] MEDS: ALBUMIN HUMAN 25% IVPB 25 GM/100 ML BTL IV ×3 (08:57→21:05)
[2024-09-20] MEDS: CITRIC ACID/SODIUM CITR 15 ML UDC (BICITRA) 30 ML NG (08:57)
[2024-09-20] MEDS: GLYCOPYRROLATE INJ 0.2 MG/ML VIAL IV (08:58)
[2024-09-20] MEDS: rifaximin 550 MG TABLET NG ×2 (08:58→20:38)
--- NOTE | 2024-09-20 09:46 | PC.DIETICIAN ---
Nutrition prescription: If EN is initiated, consider:?Trophic feeds of Vital 1.2 at 20 ml/hr via OG/NG tube. Water flushes of 30 ml every 4 hrs. Once more stable, advance 10 ml every 8 hrs to goal rate of 55 ml/hr x? 24 hrs.
[2024-09-20] MEDS: POTASSIUM CHL 20 mEq IVPB 20 MEQ/100 ML BAG 50 MEQ IV (09:59)
[2024-09-20] MEDS: VASOPRESSIN IN NS IVPB 20 UNIT/100 ML BAG 9 UNIT IV ×2 (10:19→20:24)
--- NOTE | 2024-09-20 10:38 | PD.RESPRO ---
Documentation for date of: 09/20/24 Subjective Subjective Interval history: Mr. Stack is a 74-year-old male with past medical history of liver cirrhosis secondary to alcohol use disorder, esophageal varices, ?Asthma/COPD, GERD, anxiety and BPH presented to [facility] on 08/28/2024 with a chief complaint of altered mental status. per EMS patient was found to be naked and altered. Noted to have dark blood all over the floor. During the hospital course patient had a GI bleed and was seen by Dr. Hall. Also noted to have metabolic encephalopathy-lactulose, rifaximin were initiated. For the last 24 hours his urine output has dropped significantly and renal consultation was requested. CT brain was negative. 09/08/2024 patient currently seen in telemetry.His current medications included folic acid, lactulose, Protonix, propranolol, rifaximin, thiamine.WBC 11.9, hemoglobin 9.5, platelets 131. Sodium 137, potassium 3.3, BUN 43, creatinine 2.9, calcium 9, phosphorus 3.9, total bilirubin 15.2, AST 132, ALT 53, albumin 1.7. Urine showed concentrated urine with blood and bilirubin. Urine sodium less than 15. Talk screen was negative. Hep panel showed AB and AB-. Hep C positive. Renal ultrasound this afternoon showed no hydronephrosis. No cortical thinning consistent with normal kidneys. Head CT on admission was negative. 09/09/2024 patient currently seen in telemetry. Today he seems to be more alert and awake. Last night hospitalist team called-patient complaining of abdominal pain and shortness of breath. Chest x-ray showed dilated bowel loops. Recommended KUB which showed ileus-NG tube was inserted overnight. Patient currently seems to be feeling little bit better. Denies any abdominal pain. Hemoglobin 9, platelets 109, WBC 11, sodium 137, potassium 3.4, BUN 44, creatinine 3.6, GFR 17, bilirubin significantly elevated to 19, AST 113, ALT 48, alk phos 155, albumin 2.1 urine sodium less than 15 urine output 225 mL/day Noted team started the patient on steroids. Patient has a decompensated liver cirrhosis. Hep C positive. Viral load pending. Dr. Hall on the case. Patient currently on albumin, midodrine, normal saline to rule out hepatorenal syndrome. Will continue the same for another 24 hours. If no improvement then HRS 1 diagnosis will be made 09/10/2024 patient currently seen in telemetry. He is having breakfast. Denies any chest pain, shortness of breath. More alert and awake. Made 500 mL urine last night. Blood sugar 109. Blood pressure 100/53, heart rate 69. WBC 12.3, hemoglobin 8.2, platelets 94. Sodium 137, potassium 3.4, bicarbonate 18.8, BUN 56, creatinine 3.9, glucose 133, calcium 9.1, phosphorus 5.1, magnesium 2.6, total bilirubin 20.9, AST 53, ALT 43, alk phos 133, albumin 2.4. He is currently on midodrine, normal saline at 125 mL/h, albumin 3 times daily, rifaximin. 09/16/2024 Patient currently seen in telemetry. This morning he seems to be slow in response. Significant jaundice noted. Creatinine improved to 3.1. Urine output overnight more than [address] Coulter-will do gentle IV fluids. Patient not taking his lactulose. Dr. Coulter planning to place a rectal tube with the lactulose pr. 09/18/2024 patient currently seen in ICU. Currently on pressors. Urine output started to decrease. Patient currently on ventilator. Labs, medications reviewed. ICU team placed Vas-Cath. Family requesting all aggressive measures including dialysis despite explaining poor prognosis and not a candidate for outpatient dialysis. Dialysis ordered today. Patient on dialysis. 09/19/2024 patient currently seen in ICU. Unable to tolerate dialysis yesterday due to bradycardia and hypotension. Unfortunately is not a candidate for dialysis and cannot proceed with further dialysis sessions. Remains on ventilator. ICU team planning to have a family meeting-patient might need comfort care. Seems like going towards multisystem organ failure (encephalopathy, respiratory failure, liver failure, kidney failure, coagulopathy, GI bleed). Prognosis remains grim. Currently he is DNR. 09/20/2024 Patient is seen and examined at bedside in the ICU Patient medical condition still remained the same and no acute overnight events Patient noted to have drop in hemoglobin and platelets, received 1 pack PRBC and 1 platelet transfusion yesterday Vitals are stable as of now on vasopressor and mechanical ventilator support Physical examination showed anasarca and icterus Labs showed Hb 7.9, platelets 22, potassium 3.1, sodium 144, BUN 68, creatinine 3.5, total bilirubin 27.3, ammonia 135 Recommended to increase the albumin dose infusions As patient is still hemodynamically unstable, not a candidate for hemodialysis still cannot proceed with dialysis sessions despite worsening renal functions Prognosis still remains poor in view of acute liver failure, kidney failure, respiratory failure. Exam Vital Signs Temp Pulse Resp BP Pulse Ox O2 Del Method O2 Flow Rate 96.6 F L 63 10 L 109/64 96 Mechanical Ventilation 3 09/20/24 04:00 09/20/24 10:15 09/20/24 06:47 09/20/24 10:15 09/20/24 10:15 09/20/24 04:00 09/16/24 12:00 FiO2 35 09/20/24 10:08 Narrative Exam General: Sedated and on mechanical ventilator HEENT: Normocephalic, atraumatic, mucous membranes moist. Heart: Regular rate and rhythm, no murmurs. Lungs: Clear to auscultation with no wheezing or crackles. Abdomen: Soft, nondistended, nontender, positive bowel sounds. Tense abdomen noted Neurologic: On mechanical ventilator under sedation Extremities: Bilateral 4+ pitting pedal edema extending up to the abdomen, edematous scrotum noted Skin: Icterus noted Objective Labs 09/21/24 04:45 09/21/24 04:45 Labs: Laboratory Results - last 24 hr 09/19/24 09/19/24 09/19/24 06:20 16:20 21:44 WBC 13.4 H RBC 2.45 L Hgb 7.8 L Hct 23.4 L MCV 96 MCH 31.8 MCHC 33.3 RDW Std Deviation 72.4 H Plt Count 25 L* Neut % (Auto) 80 Lymph % (Auto) 9 L Sampson % (Auto) 6 Eos % (Auto) 3 Baso % (Auto) 0 Neut # (Auto) 10.7 H Lymph # (Auto) 1.3 Sampson # (Auto) 0.8 Eos # (Auto) 0.4 Baso # (Auto) 0.0 Immature Gran # (Auto) 0.21 H Absolute Nucleated RBC 0.06 H Immature Gran % 2 H Nucleated RBC % 0 PT 24.7 H D INR 2.4 H Fibrinogen 77 L* Sodium Potassium Chloride Carbon Dioxide Anion Gap BUN Creatinine Estim Creat Clear Calc eGFR BUN/Creatinine Ratio Glucose Calculated Osmolality Calcium Corrected Calcium Phosphorus Total Bilirubin AST ALT Alkaline Phosphatase Ammonia 147 H* Total Protein Albumin Globulin Albumin/Globulin Ratio Misc Test Result See comment Blood Type O Positive Antibody Screen POSITIVE Antibody Identification Anti-E Crossmatch See Detail Blood Bank Wristband ID Yes Blood Bank Comment PLATP Ready 09/20/24 05:15 WBC 13.9 H RBC 2.49 L Hgb 7.9 L Hct 23.7 L MCV 95 MCH 31.7 MCHC 33.3 RDW Std Deviation 73.0 H Plt Count 22 L* Neut % (Auto) 77 Lymph % (Auto) 10 Sampson % (Auto) 8 Eos % (Auto) 4 Baso % (Auto) 0 Neut # (Auto) 10.7 H Lymph # (Auto) 1.4 Sampson # (Auto) 1.1 H Eos # (Auto) 0.5 Baso # (Auto) 0.0 Immature Gran # (Auto) 0.15 H Absolute Nucleated RBC 0.03 H Immature Gran % 1 H Nucleated RBC % 0 PT INR Fibrinogen Sodium 144 Potassium 3.1 L Chloride 110 H Carbon Dioxide 22.4 Anion Gap 12 BUN 68 H Creatinine 3.5 H Estim Creat Clear Calc 21.1 L eGFR 17 L BUN/Creatinine Ratio 19 Glucose 82 D Calculated Osmolality 305 H Calcium 8.8 Corrected Calcium 9.9 Phosphorus 4.8 Total Bilirubin 27.3 H* D AST 72 H ALT 45 Alkaline Phosphatase 126 H Ammonia 135 H* Total Protein 5.5 L Albumin 2.6 L Globulin 2.9 Albumin/Globulin Ratio 0.9 L Misc Test Result Platelets confirmed Blood Type Antibody Screen Antibody Identification Crossmatch Blood Bank Wristband ID Blood Bank Comment ABG Interpretation ABG results: 08/28/24 08/29/24 09/03/24 22:40 10:05 15:24 ABG pH 7.41 7.50 H ABG pCO2 29 L 33 ABG pO2 69 L 63 L ABG HCO3 18 L 25 ABG O2 Saturation 94 94 ABG Base Excess -6 L 2 VBG pH 7.41 VBG pCO2 47 VBG pO2 30 VBG Base Excess 4 H 09/16/24 09/16/24 09/17/24 10:57 15:20 05:09 ABG pH 7.27 L 7.34 L 7.29 L ABG pCO2 48 40 46 ABG pO2 88 240 H D 64 L D ABG HCO3 22 21 22 ABG O2 Saturation 96 101 H 89 L ABG Base Excess -5 L -4 L -5 L VBG pH VBG pCO2 VBG pO2 VBG Base Excess 09/17/24 18:49 ABG pH 7.33 L ABG pCO2 41 ABG pO2 71 L ABG HCO3 22 ABG O2 Saturation 93 ABG Base Excess -4 L VBG pH VBG pCO2 VBG pO2 VBG Base Excess Quality Measures Quality Measures none Advance care planning discussed with:: patient and other Assessment & Plan Assessment Current Active Medications: Generic Name Dose Route Start Last Admin Trade Name Freq PRN Reason Stop Dose Admin Albuterol/Ipratropium 3 ml 08/28/24 20:24 09/12/24 19:57 Albuterol/Ipratropium (Duoneb) Rt Janessa 3 Ml Nebu INH 09/27/24 22:59 3 ml Q4HRRT PRN Administration Wheeze Atropine Sulfate 0.5 mg 09/18/24 10:10 Atropine Sulf Inj 0.1 Mg/Ml Syr 10 Ml IVP 10/18/24 10:09 Q3MIN PRN BRADYCARDIA (HR<50) Citric Acid/Sodium Citrate 30 ml 09/16/24 16:00 09/20/24 08:57 Citric Acid/Sodium Citr 15 Ml Udc (Bicitra) NG 10/16/24 15:59 30 ml DAILY JERSON Administration Dextrose 25 ml 09/15/24 06:05 09/20/24 01:55 Dextrose 50%-Water Inj 50 Ml Syringe IV 10/15/24 06:04 25 ml Q15MIN PRN Administration BG 50-70 responsive npo pt Dextrose 50 ml 09/15/24 06:05 09/19/24 07:51 Dextrose 50%-Water Inj 50 Ml Syringe IV 10/15/24 06:04 50 ml Q15MIN PRN Administration BG <50 OR BG <70 & pt unresponsive Folic Acid 1 mg 09/17/24 09:00 09/20/24 08:57 Folic Acid 1 Mg Tablet NG 10/17/24 08:59 1 mg QDAY JERSON Administration Glucagon 1 mg 09/15/24 06:05 Glucagon Inj 1 Mg Vial IM Q15MIN PRN BG <70, and no IV access Heparin Sodium (Porcine) 2,600 unit 09/18/24 09:00 09/18/24 10:43 Heparin Sod Inj 1000 Unit/Ml [facility] 10/02/24 08:59 2,600 unit PRN PRN Administration DIALYSIS Propofol 1,000 mg in 100 mls @ 2.685 mls/hr 09/16/24 13:43 09/20/24 09:10 Diprivan Ivpb IV 10/16/24 13:42 0 mcg/kg/min .Q24H PRN 0 mls/hr PER PROTOCOL Titration Protocol 5 MCG/KG/MIN Fentanyl Citrate 2,500 mcg in 250 mls @ 2.5 mls/hr 09/16/24 13:44 09/20/24 10:00 Sublimaze Inj 2,500 Mcg/250 Ml Bag IV 09/21/24 13:43 225 mcg/hr .Q24H PRN 22.5 mls/hr PER PROTOCOL Titration Protocol 25 MCG/HR Vasopressin/Sodium Chloride 20 unit in 100 mls @ 9 mls/hr 09/16/24 16:43 09/20/24 10:19 Vasostrict/Ns Ivpb IV 10/16/24 16:42 0.03 unit/min .Q11H7M PRN 9 mls/hr PER PROTOCOL Administration Protocol 0.03 UNIT/MIN Phenylephrine HCl 40 mg/ 100 mls @ 7.058 mls/hr 09/18/24 10:12 09/18/24 22:00 Sodium Chloride IV 10/18/24 10:11 0 mcg/kg/min .[id number] PRN 0 mls/hr Per Sepsis Protocol Titration Protocol 0.5 MCG/KG/MIN Norepinephrine Bitartrate 16 mg in 250 mls @ 4.411 mls/hr 09/18/24 15:47 09/20/24 06:00 Levophed In Ns 16mg/250ml IV 10/18/24 15:46 0.23 mcg/kg/min .Q24H PRN 20.29 mls/hr PER PROTOCOL Titration Protocol 0.05 MCG/KG/MIN Octreotide Acetate 1,000 mcg/ 102 mls @ 5.1 mls/hr 09/19/24 08:56 09/20/24 03:53 Sodium Chloride IV 09/24/24 08:56 50 mcg/hr .Q20H JERSON 5.1 mls/hr Administration Protocol 50 MCG/HR Potassium Chloride 20 meq in 100 mls @ 50 mls/hr 09/20/24 09:28 09/20/24 09:59 Kcl Ivpb IV 09/20/24 11:27 50 mls/hr X1 ONE Administration Albumin Human 25 gm in 100 mls @ 100 mls/hr 09/20/24 14:00 Albuminar-25 Ivpb IV 09/23/24 13:59 TID JERSON Lactulose 30 gm 09/16/24 20:08 09/20/24 05:05 Lactulose Syrup 20 Gm/30 Ml Udc NG 10/16/24 18:59 30 gm QID JERSON Administration Protocol Propranolol HCl 10 mg 09/16/24 21:00 Propranolol 10 Mg Tablet NG 10/16/24 20:59 BID JERSON Rifaximin 550 mg 09/16/24 21:00 09/20/24 08:58 Rifaximin 550 Mg Tablet NG 09/23/24 20:59 550 mg BID JERSON Administration Sevelamer Carbonate 0.8 gm 09/17/24 08:00 09/18/24 08:50 Sevelamer Carbonate 0.8 Gm Packet (Non-Formulary) NG 10/17/24 07:59 Not Given TIDWM JERSON Protocol Sodium Chloride 5 ml 08/28/24 17:29 08/28/24 18:47 Sodium Chloride Rt Janessa 0.9% 3 Ml Nebu INH 09/27/24 17:28 3 ml PRN PRN Administration SOLN Thiamine HCl 100 mg 09/17/24 09:00 09/20/24 08:57 Thiamine 100 Mg Tablet NG 10/17/24 08:59 100 mg QDAY JERSON Administration Plan Mr. Stack is a 74-year-old male with past medical history of liver cirrhosis secondary to alcohol use disorder, esophageal varices, ?Asthma/COPD, GERD, anxiety and BPH presented to [facility] on 08/28/2024 with a chief complaint of altered mental status and admitted for multisystem organ failure. #Acute renal failure (ARF) More likely Hepatorenal syndrome in the setting of cirrhosis vs prerenal # Acute decompensated liver cirrhosis -Patient had history of alcoholic liver cirrhosis and esophageal varices -At the time of admission, creatinine is 0.8 and during the hospital course continued to uptrend with decreased urine output -In view of worsening renal functions, Vas-Cath was placed by ICU team on 09/19/2024 and after having conversation with the family, patient was started on dialysis but he could not tolerate due to bradycardia and hypotension and dialysis was discontinued as it made him hemodynamically more unstable. -As of 09/20/2024 Creatinine is 3.5, BUN is 68, phosphorus 4.8, bicarb 22.4, anion gap 12, potassium 3.1, total bilirubin is 27.3, INR 2.4, fibrinogen 77, AST 72, ALT 45, ammonia 135, albumin 2.6 Plan -Recommended to increase the dose of albumin infusions, 1 g/kg -Cannot offer any further dialysis session for now in view of patient's medical condition -Recommended to continue vasopressors, lactulose, other needed medications as needed for acute decompensated liver failure -Continue blood and blood product transfusions as needed -Replace electrolytes as needed and continue to monitor renal functions -Avoid nephrotoxic medications and renally dose medications -Monitor urine output -ICU team planning to discuss with family regarding the comfort care as prognosis remains very poor in the setting of multisystem organ failure # Hypokalemia Likely due to losses from bowel movements due to lactulose -Potassium as of 09/20/2024 is 3.1 -20 mEq of potassium is given -Monitor potassium and replete as needed #Acute encephalopathy, likely hepatic/metabolic #Shock, hypovolemic due to third spacing in setting of cirrhosis vs distributive (septic), resolved #Bradycardia, in setting of propofol #Acute respiratory failure requiring intubation #Aspiration pneumonia, resolved #History of COPD #Acute blood loss anemia secondary to GI bleed, resolved #Esophageal varices, resolved #Acute on chronic liver failure with coagulopathy and thrombocytopenia #Portal hypertension with esophageal varices, hypertensive portal gastropathy and ascites #Hyperbilirubinemia #Respiratory acidosis #Acute blood loss anemia, stable #Subclinical hypothyroidism #? Spontaneous bacterial peritonitis Rest of the medical conditions to be treated as per primary team Thank you for allowing us to participate in the care of the patient Patient plan of care was discussed with the attending physician, Dr. Marcela Hatch, PGY1 Attending Provider Attestation/Addendum Patient seen and examined with resident physician Dr. Tobias. Note reviewed, agree with findings and recommendations. Critical care time spent more than 35 months regarding plan of care and disease management. Patient currently seen in ICU. Multisystem organ failure. Prognosis remains poor. Noted family agreed on comfort care due to poor prognosis and will consider possible withdrawal next Sunday. Plan of care discussed with ICU team.
[2024-09-20] MEDS: DEXTROSE 50%-WATER INJ 50 ML SYRINGE IV ×2 (10:44→22:01)
--- NOTE | 2024-09-20 16:09 | ESPR_ITS ---
<Statement entered by Les Alvarado MD - 09/20/24 17:20> Patient was examined bedside this morning, overnight he was bradycardic up to 45 glycopyrrolate x1 dose wasgiven , we discontinued the propofol. increased the dose of albumin , he is not a candidate for dialysis for now . family updated on bedside about poor prognosis . I discussed with and supervised my co-resident involved in the care of this patient. I agree with the assessment and plan as documented above. Les Alvarado,PGY-3 Disclaimer: Despite multiple revisions, due to the dictation software being used, the document below may not be free of grammatical errors including phonetic/typographic errors. However, this does not deter from our commitment to providing health care in the patient's best interest in mind.. Documentation for date of: 09/20/24 Subjective Subjective Interval history: Patient seen at bedside. Overnight was said to have been bradycardia in the 40s, otherwise unremarkable. Mentation continues to be limited and no bowel movements despite being on lactulose. Discontinued fentanyl and propofol. Will continue to adjust sedation regimen as needed.Clinical status has remained unchanged, however urine output improved, patient put out about 1.8 L overnight. Family updated on status and prognosis of patient. Labs reviewed, hypokalemic today will replete potassium. Exam Vital Signs Temp Pulse Resp BP Pulse Ox O2 Del Method O2 Flow Rate 96.6 F L 67 10 L 92/65 96 Mechanical Ventilation 3 09/20/24 04:00 09/20/24 15:45 09/20/24 06:47 09/20/24 15:45 09/20/24 15:45 09/20/24 04:00 09/16/24 12:00 FiO2 35 09/20/24 14:31 Narrative Exam GENERAL: Intubated and mechanically ventilated, off of sedation NEURO: GCS-3 HEENT: Moist mucosa. Eyes open, symmetrical, icteric CARDIO: No chest pain on palpation. Heart RRR, no obvious murmurs PULM: Decreased breath sounds on the right GI: Abdomen soft, nondistended, no pain on palpation. 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 Garcia catheter in-situ SKIN/MSK/EXT: Icteric skin, bilateral pitting edema Objective Labs 09/24/24 09:06 09/24/24 04:44 Labs: Laboratory Results - last 24 hr 09/19/24 09/19/24 09/19/24 06:20 16:20 21:44 WBC 13.4 H RBC 2.45 L Hgb 7.8 L Hct 23.4 L MCV 96 MCH 31.8 MCHC 33.3 RDW Std Deviation 72.4 H Plt Count 25 L* Neut % (Auto) 80 Lymph % (Auto) 9 L [place] % (Auto) 6 Eos % (Auto) 3 Baso % (Auto) 0 Neut # (Auto) 10.7 H Lymph # (Auto) 1.3 [place] # (Auto) 0.8 Eos # (Auto) 0.4 Baso # (Auto) 0.0 Immature Gran # (Auto) 0.21 H Absolute Nucleated RBC 0.06 H Immature Gran % 2 H Nucleated RBC % 0 PT 24.7 H D INR 2.4 H Fibrinogen 77 L* Sodium Potassium Chloride Carbon Dioxide Anion Gap BUN Creatinine Estim Creat Clear Calc eGFR BUN/Creatinine Ratio Glucose Calculated Osmolality Calcium Corrected Calcium Phosphorus Total Bilirubin AST ALT Alkaline Phosphatase Ammonia 147 H* Total Protein Albumin Globulin Albumin/Globulin Ratio Misc Test Result See comment Blood Type O Positive Antibody Screen POSITIVE Antibody Identification Anti-E Crossmatch See Detail Blood Bank Wristband ID Yes Blood Bank Comment PLATP Ready 09/20/24 05:15 WBC 13.9 H RBC 2.49 L Hgb 7.9 L Hct 23.7 L MCV 95 MCH 31.7 MCHC 33.3 RDW Std Deviation 73.0 H Plt Count 22 L* Neut % (Auto) 77 Lymph % (Auto) 10 [place] % (Auto) 8 Eos % (Auto) 4 Baso % (Auto) 0 Neut # (Auto) 10.7 H Lymph # (Auto) 1.4 [place] # (Auto) 1.1 H Eos # (Auto) 0.5 Baso # (Auto) 0.0 Immature Gran # (Auto) 0.15 H Absolute Nucleated RBC 0.03 H Immature Gran % 1 H Nucleated RBC % 0 PT INR Fibrinogen Sodium 144 Potassium 3.1 L Chloride 110 H Carbon Dioxide 22.4 Anion Gap 12 BUN 68 H Creatinine 3.5 H Estim Creat Clear Calc 21.1 L eGFR 17 L BUN/Creatinine Ratio 19 Glucose 82 D Calculated Osmolality 305 H Calcium 8.8 Corrected Calcium 9.9 Phosphorus 4.8 Total Bilirubin 27.3 H* D AST 72 H ALT 45 Alkaline Phosphatase 126 H Ammonia 135 H* Total Protein 5.5 L Albumin 2.6 L Globulin 2.9 Albumin/Globulin Ratio 0.9 L Misc Test Result Platelets confirmed Blood Type Antibody Screen Antibody Identification Crossmatch Blood Bank Wristband ID Blood Bank Comment ABG Interpretation ABG results: 08/28/24 08/29/24 09/03/24 22:40 10:05 15:24 ABG pH 7.41 7.50 H ABG pCO2 29 L 33 ABG pO2 69 L 63 L ABG HCO3 18 L 25 ABG O2 Saturation 94 94 ABG Base Excess -6 L 2 VBG pH 7.41 VBG pCO2 47 VBG pO2 30 VBG Base Excess 4 H 09/16/24 09/16/24 09/17/24 10:57 15:20 05:09 ABG pH 7.27 L 7.34 L 7.29 L ABG pCO2 48 40 46 ABG pO2 88 240 H D 64 L D ABG HCO3 22 21 22 ABG O2 Saturation 96 101 H 89 L ABG Base Excess -5 L -4 L -5 L VBG pH VBG pCO2 VBG pO2 VBG Base Excess 09/17/24 18:49 ABG pH 7.33 L ABG pCO2 41 ABG pO2 71 L ABG HCO3 22 ABG O2 Saturation 93 ABG Base Excess -4 L VBG pH VBG pCO2 VBG pO2 VBG Base Excess Quality Measures Quality Measures none Advance care planning discussed with:: other Assessment & Plan Assessment Current Active Medications: Generic Name Dose Route Start Last Admin Trade Name Freq PRN Reason Stop Dose Admin Albuterol/Ipratropium 3 ml 08/28/24 20:24 09/12/24 19:57 Albuterol/Ipratropium (Duoneb) Rt Janessa 3 Ml Nebu INH 09/27/24 22:59 3 ml Q4HRRT PRN Administration Wheeze Atropine Sulfate 0.5 mg 09/18/24 10:10 Atropine Sulf Inj 0.1 Mg/Ml Syr 10 Ml IVP 10/18/24 10:09 Q3MIN PRN BRADYCARDIA (HR<50) Citric Acid/Sodium Citrate 30 ml 09/16/24 16:00 09/20/24 08:57 Citric Acid/Sodium Citr 15 Ml Udc (Bicitra) NG 10/16/24 15:59 30 ml DAILY JERSON Administration Dextrose 25 ml 09/15/24 06:05 09/20/24 01:55 Dextrose 50%-Water Inj 50 Ml Syringe IV 10/15/24 06:04 25 ml Q15MIN PRN Administration BG 50-70 responsive npo pt Dextrose 50 ml 09/15/24 06:05 09/20/24 10:44 Dextrose 50%-Water Inj 50 Ml Syringe IV 10/15/24 06:04 50 ml Q15MIN PRN Administration BG <50 OR BG <70 & pt unresponsive Folic Acid 1 mg 09/17/24 09:00 09/20/24 08:57 Folic Acid 1 Mg Tablet NG 10/17/24 08:59 1 mg QDAY JERSON Administration Glucagon 1 mg 09/15/24 06:05 Glucagon Inj 1 Mg Vial IM Q15MIN PRN BG <70, and no IV access Heparin Sodium (Porcine) 2,600 unit 09/18/24 09:00 09/18/24 10:43 Heparin Sod Inj 1000 Unit/Ml Vial 10 Ml INDWELLCAT 10/02/24 08:59 2,600 unit PRN PRN Administration DIALYSIS Propofol 1,000 mg in 100 mls @ 2.685 mls/hr 09/16/24 13:43 09/20/24 09:10 Diprivan Ivpb IV 10/16/24 13:42 0 mcg/kg/min .Q24H PRN 0 mls/hr PER PROTOCOL Titration Protocol 5 MCG/KG/MIN Fentanyl Citrate 2,500 mcg in 250 mls @ 2.5 mls/hr 09/16/24 13:44 09/20/24 13:00 Sublimaze Inj 2,500 Mcg/250 Ml Bag IV 09/21/24 13:43 225 mcg/hr .Q24H PRN 22.5 mls/hr PER PROTOCOL Titration Protocol 25 MCG/HR Vasopressin/Sodium Chloride 20 unit in 100 mls @ 9 mls/hr 09/16/24 16:43 09/20/24 10:19 Vasostrict/Ns Ivpb IV 10/16/24 16:42 0.03 unit/min .Q11H7M PRN 9 mls/hr PER PROTOCOL Administration Protocol 0.03 UNIT/MIN Phenylephrine HCl 40 mg/ 100 mls @ 7.058 mls/hr 09/18/24 10:12 09/18/24 22:00 Sodium Chloride IV 10/18/24 10:11 0 mcg/kg/min .[id number] PRN 0 mls/hr Per Sepsis Protocol Titration Protocol 0.5 MCG/KG/MIN Norepinephrine Bitartrate 16 mg in 250 mls @ 4.411 mls/hr 09/18/24 15:47 09/20/24 06:00 Levophed In Ns 16mg/250ml IV 10/18/24 15:46 0.23 mcg/kg/min .Q24H PRN 20.29 mls/hr PER PROTOCOL Titration Protocol 0.05 MCG/KG/MIN Octreotide Acetate 1,000 mcg/ 102 mls @ 5.1 mls/hr 09/19/24 08:56 09/20/24 03:53 Sodium Chloride IV 09/24/24 08:56 50 mcg/hr .Q20H JERSON 5.1 mls/hr Administration Protocol 50 MCG/HR Albumin Human 25 gm in 100 mls @ 100 mls/hr 09/20/24 14:00 09/20/24 13:15 Albuminar-25 Ivpb IV 09/23/24 13:59 100 mls/hr TID JERSON Administration Lactulose 30 gm 09/16/24 20:08 09/20/24 12:20 Lactulose Syrup 20 Gm/30 Ml Udc NG 10/16/24 18:59 30 gm QID JERSON Administration Protocol Propranolol HCl 10 mg 09/16/24 21:00 Propranolol 10 Mg Tablet NG 10/16/24 20:59 BID JERSON Rifaximin 550 mg 09/16/24 21:00 09/20/24 08:58 Rifaximin 550 Mg Tablet NG 09/23/24 20:59 550 mg BID JERSON Administration Sevelamer Carbonate 0.8 gm 09/17/24 08:00 09/18/24 08:50 Sevelamer Carbonate 0.8 Gm Packet (Non-Formulary) NG 10/17/24 07:59 Not Given TIDWM JERSON Protocol Sodium Chloride 5 ml 08/28/24 17:29 08/28/24 18:47 Sodium Chloride Rt Janessa 0.9% 3 Ml Nebu INH 09/27/24 17:28 3 ml PRN PRN Administration SOLN Thiamine HCl 100 mg 09/17/24 09:00 09/20/24 08:57 Thiamine 100 Mg Tablet NG 10/17/24 08:59 100 mg QDAY JERSON Administration Plan Abdifatah Stack is a 74-year-old male with past medical history of HCV, alcoholic cirrhosis, esophageal varices, GERD, anxiety, and BPH who [facility] on 08[facility]28 [facility]. During hospital course, received EGD on 09/01 which showed grade 1 varices (not large enough for band ligation), hemorrhagic gastritis, and hypertensive portal gastropathy with mucosal oozing as source of bleeding. Over past couple of days, noted to become more encephalopathic and developed worsening respiratory failure and required intubation and subsequently upgraded to ICU on 09/16. Neurological #Acute encephalopathy, likely hepatic/metabolic Baseline, conversational and oriented x 3. On admission, encephalopathic and A&O x 0 that improved throughout hospitalization. However, throughout last couple of days was noted to become more encephalopathic. Repeat CT head on 09/16: Negative for acute hemorrhage, mass effect, or midline shift Ammonia 54, BUN 61, ABG showed pH 7.27. ? Lactulose 30 g 4 times daily ? Rifaximin 550 mg twice daily ? Aspiration precautions, head of bed elevation Cardiovascular #Shock, hypovolemic due to third spacing in setting of cirrhosis vs distributive (septic), resolved History of cirrhosis with prominent ascites seen on CT A/P on 09/16. #Bradycardia, in setting of propofol Pulmonary #Acute respiratory failure requiring intubation GCS 6 and respiratory distress prior to intubation ? Vent settings: VT 550, RR 15, PEEP 5, FiO2 35% #Aspiration pneumonia, resolved With AMS and CXR showed large right-sided pleural effusion. Completed 7 days of Augmentin (08/30 to 09/06). #History of COPD Home medication Trelegy inhaler ? DuoNebs as needed Gastrointestinal #Acute blood loss anemia secondary to GI bleed, resolved #Esophageal varices, resolved Found unconscious in a pool of coffee-ground emesis Transfused one unit of pRBC and platelet yesterday Hgb today- 7.9, PLT- 22 - Will continue to monitor H&H #Acute on chronic liver failure with coagulopathy and thrombocytopenia #Portal hypertension with esophageal varices, hypertensive portal gastropathy and ascites #Hyperbilirubinemia CMV IgG positive, IgM negative. EBV IgG positive, IgM negative. HAV negative, HBV antigen nonreactive. HCV antibody reactive, RNA negative. HSV I/II IgG positive, HIV negative. EGD: diffuse hypertensive portal gastropathy with mucosal oozing of blood and 1+ esophageal varices not large enough for band ligation. Abdominal US on 09/11: gallbladder sludge, gallbladder wall thickened 0.5 cm, cirrhosis and mild ascites. Meld?NA score 38 points -> 65-66% 90-day mortality Child?Hernandez class C, 12 points -> life expectancy 1-3 years, abdominal surgery mortality 82% Madrey score 42 -> may benefit from steroids Completed N-acetylcysteine IV daily on 09/13 for acute on chronic liver failure Completed 3 days of Phytonadione 10 mg SC daily ffrom 09/10-09/13 ? Status post paracentesis on 09/18 with removal of 550 cc straw-colored fluid ? SAAG of 1.4, which is > 1.1 and highly suggestive of portal hypertension ? 1 WBC in peritoneal fluid -> no SBP Renal #Respiratory acidosis #Non anion gap metabolic acidosis Grunting and responsive to pain only. Had 1 bowel movements in the past 48 hours. ? Lactulose and rifaxamin as above ? Aspiration precautions, head of bed elevation ? Continue Bicitra #Acute kidney injury, likely prerenal in setting of cirrhosis (hepatorenal syndrome) Baseline Cr 0.5 Urine creatinine 216, urine random protein 100, urine sodium <15, urine potassium 50, urine chloride <20 Renal US 09/08: no hydronephrosis, no significant cortical thinning Underwent dialysis on 09/18 but patient did not tolerate and will likely not be able to tolerate moving forward. ? Octreotide 09/13-09/18 ? Pressors as noted above ? Albumin ? Nephrology consulted, appreciate recommendations ? Renally dose medications and avoid nephrotoxic agents Heme/Onc #Acute blood loss anemia, stable ? Continue to monitor daily CBC Endocrine #Subclinical hypothyroidism TSH 0.39, T4 0.84 Likely normal based on patient age Infectious disease #? Spontaneous bacterial peritonitis, ruled out WBC uptrending, though no fevers. Freddy HERNÁNDEZ'hussein. Hospital management: Disposition: critically ill in ICU Fluids: none Diet: NPO Lines: PIV, temp dialysis catheter, OG tube DVT prophylaxis: SCDs Garcia: placed CODE STATUS: DNR Case was discussed with Dr Alvarado PGY-3 and attending physician, Dr Heath Pascual MD PGY-1 Disclaimer: This note was dictated by speech recognition. Minor errors in blending line attendant may be present due to voice recognition software. Attending Provider Attestation/Addendum Patient seen and examined with resident, Fernando Pascual MD. I agree with the findings, assessment, and plan of care as documented except for differences below. We will continue all supportive care with appropriate low tidal volume mechanical ventilation, holding sedation to determine improvement in mentation from hepatic encpehalopathy, still holding tube feeding given high vasopressor requirements at this point. Remains on appropriate prophylaxis. Transfuse to address coagulopathy and blood loss. Calcium given as well. No suspicion of active bleeding given no output from GI tract via NG tube or per rectum. Continue with octreotide, albumin, and maintenance of MAP goal to optimize for hepatorenal syndrome. Total critical care time: Personally spent 35 minutes for review of physiologic parameters, directed plan of care throughout the day, and treatment adjustments and mechanical relation/sedation. This is exclusive of time spent teaching housestaff or performing any separate billable procedures. Patient continues to require critical care services for acute respiratory failure and decompensated liver cirrhosis with hepatic encephalopathy. Patient remains at high risk for mortality and further morbidity warranting ongoing management and care will be available in the intensive care unit.
[2024-09-20] MEDS: Norepinephrine/NS 16mg/250ml 16 MG/250 ML BAG 20.29 MG IV (16:39)
--- NOTE | 2024-09-20 22:03 | ESPR_ITS ---
Documentation for date of: 09/20/24 Subjective Subjective Interval history: patient in ICU Remains intubated No matter what prognosis remains extremely poor Exam Vital Signs Temp Pulse Resp BP Pulse Ox O2 Del Method O2 Flow Rate 96.6 F L 60 10 L 107/57 L 98 Mechanical Ventilation 3 09/20/24 20:00 09/20/24 20:15 09/20/24 06:47 09/20/24 20:15 09/20/24 20:15 09/20/24 04:00 09/16/24 12:00 FiO2 40 09/20/24 20:00 Objective Labs 09/21/24 04:45 09/21/24 04:45 Labs: Laboratory Results - last 24 hr 09/19/24 09/20/24 21:44 05:15 WBC 13.4 H 13.9 H RBC 2.45 L 2.49 L Hgb 7.8 L 7.9 L Hct 23.4 L 23.7 L MCV 96 95 MCH 31.8 31.7 MCHC 33.3 33.3 RDW Std Deviation 72.4 H 73.0 H Plt Count 25 L* 22 L* Neut % (Auto) 80 77 Lymph % (Auto) 9 L 10 [place] % (Auto) 6 8 Eos % (Auto) 3 4 Baso % (Auto) 0 0 Neut # (Auto) 10.7 H 10.7 H Lymph # (Auto) 1.3 1.4 [place] # (Auto) 0.8 1.1 H Eos # (Auto) 0.4 0.5 Baso # (Auto) 0.0 0.0 Immature Gran # (Auto) 0.21 H 0.15 H Absolute Nucleated RBC 0.06 H 0.03 H Immature Gran % 2 H 1 H Nucleated RBC % 0 0 PT 24.7 H D INR 2.4 H Fibrinogen 77 L* Sodium 144 Potassium 3.1 L Chloride 110 H Carbon Dioxide 22.4 Anion Gap 12 BUN 68 H Creatinine 3.5 H Estim Creat Clear Calc 21.1 L eGFR 17 L BUN/Creatinine Ratio 19 Glucose 82 D Calculated Osmolality 305 H Calcium 8.8 Corrected Calcium 9.9 Phosphorus 4.8 Total Bilirubin 27.3 H* D AST 72 H ALT 45 Alkaline Phosphatase 126 H Ammonia 135 H* Total Protein 5.5 L Albumin 2.6 L Globulin 2.9 Albumin/Globulin Ratio 0.9 L Misc Test Result See comment Platelets confirmed Impressions Impression: 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 and a combination of alcohol Hepatorenal syndrome Continue current management ABG Interpretation ABG results: 08/28/24 08/29/24 09/03/24 22:40 10:05 15:24 ABG pH 7.41 7.50 H ABG pCO2 29 L 33 ABG pO2 69 L 63 L ABG HCO3 18 L 25 ABG O2 Saturation 94 94 ABG Base Excess -6 L 2 VBG pH 7.41 VBG pCO2 47 VBG pO2 30 VBG Base Excess 4 H 09/16/24 09/16/24 09/17/24 10:57 15:20 05:09 ABG pH 7.27 L 7.34 L 7.29 L ABG pCO2 48 40 46 ABG pO2 88 240 H D 64 L D ABG HCO3 22 21 22 ABG O2 Saturation 96 101 H 89 L ABG Base Excess -5 L -4 L -5 L VBG pH VBG pCO2 VBG pO2 VBG Base Excess 09/17/24 18:49 ABG pH 7.33 L ABG pCO2 41 ABG pO2 71 L ABG HCO3 22 ABG O2 Saturation 93 ABG Base Excess -4 L VBG pH VBG pCO2 VBG pO2 VBG Base Excess Assessment & Plan A&P Narrative # Acute upper GI bleed in the form of melena # Acute posthemorrhagic anemia # Acute hepatic encephalopathy # Chronic liver disease with thrombocytopenia abnormal liver function test and coagulopathy secondary to alcohol Plan Agree with the blood transfusion give patient 2 units of PRBC Octreotide infusion Lactulose and Xifaxan Consent will be obtained from the sister who makes that decision for fiberoptic esophagogastroduodenoscopy with possible therapeutic intervention under intravenous moderate sedation Prognosis guarded Thank you for the opportunity to participate in the care of this patient Time Spent With Patient Time: Total time spent is greater than 50% in coordination of care (as documented) at patient's floor/unit and/or counseling patient:
[2024-09-21] VITALS (99 sets, daily range): BP systolic 83–126; BP diastolic 49–75; PULSE 56–118; RESP 6–12; TEMP 35.9–36.6; O2SAT 93–98; BMI 30.1
[2024-09-21] MEDS: OCTREOTIDE ACET INJ 1,000 MCG in SODIUM CHLORIDE 0.9% 100 ML 5.1 MCG IV ×2 (00:18→22:21)
[2024-09-21] MEDS: DEXTROSE 50%-WATER INJ 50 ML SYRINGE 25 ML IV ×4 (02:15→22:01)
[2024-09-21] MEDS: Norepinephrine/NS 16mg/250ml 16 MG/250 ML BAG 23.819 MG IV (03:17)
[2024-09-21] MEDS: fentaNYL 2,500 MCG/250 ML BAG 2,500 MCG/250 ML BAG 22.5 MCG IV (04:17)
[2024-09-21] MEDS: ALBUMIN HUMAN 25% IVPB 25 GM/100 ML BTL IV ×3 (05:28→21:34)
[2024-09-21] MEDS: LACTULOSE SYRUP 20 GM/30 ML UDC 30 GM NG ×4 (05:28→20:42)
[2024-09-21 05:51] LABS: Alanine Aminotransferase 39 U/L (10-49); Albumin, Serum 3.3 gm/dL (3.4-4.8); Albumin/Globulin Ratio 1.1 (1.2-2.2); Alkaline Phosphatase 123 U/L (46-116); Anion Gap 10 (7-16); Aspartate Amino Transferase 73 U/L (0-34); BUN/Creatinine Ratio 18 Ratio (12-20); Blood Urea Nitrogen 64 mg/dL (9-23); Calcium 9.4 mg/dL (8.3-10.6); Carbon Dioxide 23.9 mMol/L (20.0-31.0); Chloride 111 mMol/L (98-107); Creatinine (Component) 3.5 mg/dL (0.6-1.3); Estimated Creatinine Clearance 21.1 mL/min (>60); Glucose 81 mg/dL (74-106); Osmolality,Calculated 306 (275-295); Potassium 3.6 mMol/L (3.4-5.1); Sodium 145 mMol/L (136-145); Total Protein 6.3 gm/dL (5.7-8.2); eGFR 17 See Note
[2024-09-21 05:53] LABS: Bilirubin,Total 31.1 mg/dL (0.3-1.2)
[2024-09-21 05:55] LABS: Basophils % (Auto) 0 % (0-2.5); Eosinophils # (Auto) 0.6 Thou/mm3 (0.0-0.5); Eosinophils % (Auto) 4 % (0-10); Hematocrit 23.8 % (41.0-53.0); Immature Granulocytes % (Auto) 1 % (0-0); Immature Granulocytes Auto 0.12 Thou/mm3 (0.00-0.00); Lymphocytes # (Auto) 1.2 Thou/mm3 (1.0-4.8); Lymphocytes % (Auto) 8 % (10-50); Mean Corpuscular HGB Conc 32.8 g/dl (31.0-37.0); Mean Corpuscular Hemoglobin 31.7 pg (25.0-35.0); Mean Corpuscular Volume 97 fL (80-100); Monocytes # (Auto) 1.4 Thou/mm3 (0.0-0.8); Monocytes % (Auto) 9 % (0-12); Neutrophils # (Auto) 12.4 Thou/mm3 (1.8-7.7); Neutrophils % (Auto) 78 % (37-80); Nucleated Red Blood Cell # 0.04 Thou/mm3 (0.00-0.00); Nucleated Red Blood Cell % 0 /100 WBC (0); RDW Standard Deviation 73.3 fL (35.1-43.9); Red Blood Count 2.46 Miln/mm3 (4.50-5.90); White Blood Count 15.8 Thou/mm3 (3.8-10.6)
[2024-09-21 06:17] LABS: Ammonia 241 uMol/L (11-32); Hemoglobin 7.8 g/dL (13.5-16.0)
[2024-09-21 06:18] LABS: Platelet Count 23 Thou/mm3 (140-440)
[2024-09-21 06:35] LABS: Slide Review Platelets confirmed
[2024-09-21] MEDS: VASOPRESSIN IN NS IVPB 20 UNIT/100 ML BAG 9 UNIT IV ×2 (08:24→19:47)
[2024-09-21] MEDS: THIAMINE 100 MG TABLET NG (08:43)
[2024-09-21] MEDS: rifaximin 550 MG TABLET NG ×2 (08:43→20:44)
[2024-09-21] MEDS: CITRIC ACID/SODIUM CITR 15 ML UDC (BICITRA) 30 ML NG (08:43)
[2024-09-21] MEDS: FOLIC ACID 1 MG TABLET NG (08:44)
--- NOTE | 2024-09-21 10:20 | ESPR_ITS ---
<Statement entered by Les Alvarado MD - 09/21/24 16:05> Patient has examined bedside this morning, his bilirubin is trending up 31.1 today. Urine output is decreasing.. He is off propofol from yesterday we will slowly wean fentanyl today. He is still requiring to pressure suppor . Family member present at bedside. They requested they have zoroastrianism ritual on Sunday(Marco sunday) and have family members coming to visit him out of state so they want to continue the treatment of Sunday and wanted to talk to social service worker, charge nurse was updated and social service worker informed. Prognosis poor I discussed with and supervised my co-resident involved in the care of this patient. I agree with the assessment and plan as documented above. Les Alvarado,PGY-3 Disclaimer: Despite multiple revisions, due to the dictation software being used, the document below may not be free of grammatical errors including phonetic/typographic errors. However, this does not deter from our commitment to providing health care in the patient's best interest in mind Documentation for date of: 09/21/24 Subjective Subjective Interval history: Patient seen at bedside. Urine output overnight decreased, 250 ccs. He has been weaned off of propofol, currently weaning of fentanyl, still on pressor support. WBC uptrending at 15.8 today, platelets of 23 still low. T. bili significantly elevated at 31.1. Attempted to reach out to current decision maker/patient to notify, patient's niece Miriam, but was unsuccessful. Patient is yet to have a bowel movements, has not had 1 in the last 6 days despite being on lactulose. Will switch NG from low intermittent suctioning and continue lactulose and rifaximin. Will also continue octreotide and albumin. Exam Vital Signs Temp Pulse Resp BP Pulse Ox O2 Del Method O2 Flow Rate 96.7 F L 72 10 L 111/66 95 Mechanical Ventilation 3 09/21/24 04:30 09/21/24 10:09 09/21/24 06:40 09/21/24 08:00 09/21/24 10:09 09/21/24 06:00 09/16/24 12:00 FiO2 50 09/21/24 10:09 Narrative Exam GENERAL: Intubated and mechanically ventilated, weaning off fentanyl NEURO: GCS-3 HEENT: Moist mucosa. Eyes open, symmetrical, icteric CARDIO: No chest pain on palpation. Heart RRR, no obvious murmurs PULM: Decreased breath sounds on the right GI: Abdomen soft, mildly distended s/p paracentesis URO/CARGO INSPECTOR:: No further abnormalities noted. Garcia catheter in-situ SKIN/MSK/EXT: Icteric skin, bilateral pitting edema Objective Labs 09/24/24 09:06 09/24/24 04:44 Labs: Laboratory Results - last 24 hr 09/21/24 04:45 WBC 15.8 H RBC 2.46 L Hgb 7.8 L Hct 23.8 L MCV 97 MCH 31.7 MCHC 32.8 RDW Std Deviation 73.3 H Plt Count 23 L* Neut % (Auto) 78 Lymph % (Auto) 8 L [place] % (Auto) 9 Eos % (Auto) 4 Baso % (Auto) 0 Neut # (Auto) 12.4 H Lymph # (Auto) 1.2 [place] # (Auto) 1.4 H Eos # (Auto) 0.6 H Baso # (Auto) 0.0 Immature Gran # (Auto) 0.12 H Absolute Nucleated RBC 0.04 H Immature Gran % 1 H Nucleated RBC % 0 Sodium 145 Potassium 3.6 D Chloride 111 H Carbon Dioxide 23.9 Anion Gap 10 BUN 64 H Creatinine 3.5 H Estim Creat Clear Calc 21.1 L eGFR 17 L BUN/Creatinine Ratio 18 Glucose 81 Calculated Osmolality 306 H Calcium 9.4 Corrected Calcium 10.0 Total Bilirubin 31.1 H* D AST 73 H ALT 39 Alkaline Phosphatase 123 H Ammonia 241 H* Total Protein 6.3 Albumin 3.3 L D Globulin 3.0 Albumin/Globulin Ratio 1.1 L Misc Test Result Platelets confirmed ABG Interpretation ABG results: 08/28/24 08/29/24 09/03/24 22:40 10:05 15:24 ABG pH 7.41 7.50 H ABG pCO2 29 L 33 ABG pO2 69 L 63 L ABG HCO3 18 L 25 ABG O2 Saturation 94 94 ABG Base Excess -6 L 2 VBG pH 7.41 VBG pCO2 47 VBG pO2 30 VBG Base Excess 4 H 09/16/24 09/16/24 09/17/24 10:57 15:20 05:09 ABG pH 7.27 L 7.34 L 7.29 L ABG pCO2 48 40 46 ABG pO2 88 240 H D 64 L D ABG HCO3 22 21 22 ABG O2 Saturation 96 101 H 89 L ABG Base Excess -5 L -4 L -5 L VBG pH VBG pCO2 VBG pO2 VBG Base Excess 09/17/24 18:49 ABG pH 7.33 L ABG pCO2 41 ABG pO2 71 L ABG HCO3 22 ABG O2 Saturation 93 ABG Base Excess -4 L VBG pH VBG pCO2 VBG pO2 VBG Base Excess Quality Measures Quality Measures none Advance care planning discussed with:: other Assessment & Plan Assessment Current Active Medications: Generic Name Dose Route Start Last Admin Trade Name Freq PRN Reason Stop Dose Admin Albuterol/Ipratropium 3 ml 08/28/24 20:24 09/12/24 19:57 Albuterol/Ipratropium (Duoneb) Rt Janessa 3 Ml Nebu INH 09/27/24 22:59 3 ml Q4HRRT PRN Administration Wheeze Atropine Sulfate 0.5 mg 09/18/24 10:10 Atropine Sulf Inj 0.1 Mg/Ml Syr 10 Ml IVP 10/18/24 10:09 Q3MIN PRN BRADYCARDIA (HR<50) Citric Acid/Sodium Citrate 30 ml 09/16/24 16:00 09/21/24 08:43 Citric Acid/Sodium Citr 15 Ml Udc (Bicitra) NG 10/16/24 15:59 30 ml DAILY JERSON Administration Dextrose 25 ml 09/15/24 06:05 09/21/24 06:20 Dextrose 50%-Water Inj 50 Ml Syringe IV 10/15/24 06:04 25 ml Q15MIN PRN Administration BG 50-70 responsive npo pt Dextrose 50 ml 09/15/24 06:05 09/20/24 22:01 Dextrose 50%-Water Inj 50 Ml Syringe IV 10/15/24 06:04 50 ml Q15MIN PRN Administration BG <50 OR BG <70 & pt unresponsive Folic Acid 1 mg 09/17/24 09:00 09/21/24 08:44 Folic Acid 1 Mg Tablet NG 10/17/24 08:59 1 mg QDAY JERSON Administration Glucagon 1 mg 09/15/24 06:05 Glucagon Inj 1 Mg Vial IM Q15MIN PRN BG <70, and no IV access Heparin Sodium (Porcine) 2,600 unit 09/18/24 09:00 09/18/24 10:43 Heparin Sod Inj 1000 Unit/Ml Vial 10 Ml INDWELLCAT 10/02/24 08:59 2,600 unit PRN PRN Administration DIALYSIS Propofol 1,000 mg in 100 mls @ 2.685 mls/hr 09/16/24 13:43 09/20/24 09:10 Diprivan Ivpb IV 10/16/24 13:42 0 mcg/kg/min .Q24H PRN 0 mls/hr PER PROTOCOL Titration Protocol 5 MCG/KG/MIN Fentanyl Citrate 2,500 mcg in 250 mls @ 2.5 mls/hr 09/16/24 13:44 09/21/24 09:44 Sublimaze Inj 2,500 Mcg/250 Ml Bag IV 09/21/24 13:43 0 mcg/hr .Q24H PRN 0 mls/hr PER PROTOCOL Titration Protocol 25 MCG/HR Vasopressin/Sodium Chloride 20 unit in 100 mls @ 9 mls/hr 09/16/24 16:43 09/21/24 08:24 Vasostrict/Ns Ivpb IV 10/16/24 16:42 0.03 unit/min .Q11H7M PRN 9 mls/hr PER PROTOCOL Administration Protocol 0.03 UNIT/MIN Phenylephrine HCl 40 mg/ 100 mls @ 7.058 mls/hr 09/18/24 10:12 09/18/24 22:00 Sodium Chloride IV 10/18/24 10:11 0 mcg/kg/min .[id number] PRN 0 mls/hr Per Sepsis Protocol Titration Protocol 0.5 MCG/KG/MIN Norepinephrine Bitartrate 16 mg in 250 mls @ 4.411 mls/hr 09/18/24 15:47 09/21/24 09:45 Levophed In Ns 16mg/250ml IV 10/18/24 15:46 0.29 mcg/kg/min .Q24H PRN 25.583 mls/hr PER PROTOCOL Titration Protocol 0.05 MCG/KG/MIN Octreotide Acetate 1,000 mcg/ 102 mls @ 5.1 mls/hr 09/19/24 08:56 09/21/24 00:18 Sodium Chloride IV 09/24/24 08:56 50 mcg/hr .Q20H JERSON 5.1 mls/hr Administration Protocol 50 MCG/HR Albumin Human 25 gm in 100 mls @ 100 mls/hr 09/20/24 14:00 09/21/24 05:28 Albuminar-25 Ivpb IV 09/23/24 13:59 100 mls/hr TID JERSON Administration Lactulose 30 gm 09/16/24 20:08 09/21/24 05:28 Lactulose Syrup 20 Gm/30 Ml Udc NG 10/16/24 18:59 30 gm QID JERSON Administration Protocol Propranolol HCl 10 mg 09/16/24 21:00 Propranolol 10 Mg Tablet NG 10/16/24 20:59 BID JERSON Rifaximin 550 mg 09/16/24 21:00 09/21/24 08:43 Rifaximin 550 Mg Tablet NG 09/23/24 20:59 550 mg BID JERSON Administration Sevelamer Carbonate 0.8 gm 09/17/24 08:00 09/18/24 08:50 Sevelamer Carbonate 0.8 Gm Packet (Non-Formulary) NG 10/17/24 07:59 Not Given TIDWM JERSON Protocol Sodium Chloride 5 ml 08/28/24 17:29 08/28/24 18:47 Sodium Chloride Rt Janessa 0.9% 3 Ml Nebu INH 09/27/24 17:28 3 ml PRN PRN Administration SOLN Thiamine HCl 100 mg 09/17/24 09:00 09/21/24 08:43 Thiamine 100 Mg Tablet NG 10/17/24 08:59 100 mg QDAY JERSON Administration Plan Abdifatah Stack is a 74-year-old male with past medical history of HCV, alcoholic cirrhosis, esophageal varices, GERD, anxiety, and BPH who presented on 08/28 with AMS after being found by caregiver in [facility] of dark-colored blood. During hospital course, received EGD on 09/01 which showed grade 1 varices (not large enough for band ligation), hemorrhagic gastritis, and hypertensive portal gastropathy with mucosal oozing as source of bleeding. Over past couple of days, noted to become more encephalopathic and developed worsening respiratory failure and required intubation and subsequently upgraded to ICU on 09/16. Neurological #Acute encephalopathy, likely hepatic/metabolic Baseline, conversational and oriented x 3. On admission, encephalopathic and A&O x 0 that improved throughout hospitalization. However, throughout last couple of days was noted to become more encephalopathic. Repeat CT head on 09/16: Negative for acute hemorrhage, mass effect, or midline shift Ammonia 241, BUN 64, Cr 3.5 Yet to have a BM in tehe last 5days ? Lactulose 30 g 4 times daily ? Rifaximin 550 mg twice daily ? Aspiration precautions, head of bed elevation Cardiovascular #Shock, hypovolemic due to third spacing in setting of cirrhosis vs distributive (septic), resolved History of cirrhosis with prominent ascites seen on CT A/P on 09/16. #Bradycardia, in setting of propofol Pulmonary #Acute respiratory failure requiring intubation GCS 6 and respiratory distress prior to intubation ? Vent settings: VT 550, RR 15, PEEP 5, FiO2 35% #Aspiration pneumonia, resolved With AMS and CXR showed large right-sided pleural effusion. Completed 7 days of Augmentin (08/30 to 09/06). #History of COPD Home medication Trelegy inhaler ? DuoNebs as needed Gastrointestinal #Acute blood loss anemia secondary to GI bleed, resolved #Esophageal varices, resolved Found unconscious in a pool of coffee-ground emesis Transfused one unit of pRBC and platelet yesterday Hgb today- 7.9, PLT- 22 - Will continue to monitor H&H #Acute on chronic liver failure with coagulopathy and thrombocytopenia #Portal hypertension with esophageal varices, hypertensive portal gastropathy and ascites #Hyperbilirubinemia CMV IgG positive, IgM negative. EBV IgG positive, IgM negative. HAV negative, HBV antigen nonreactive. HCV antibody reactive, RNA negative. HSV I/II IgG positive, HIV negative. EGD: diffuse hypertensive portal gastropathy with mucosal oozing of blood and 1+ esophageal varices not large enough for band ligation. Abdominal US on 09/11: gallbladder sludge, gallbladder wall thickened 0.5 cm, cirrhosis and mild ascites. Meld?NA score 38 points -> 65-66% 90-day mortality Child?Hernandez class C, 12 points -> life expectancy 1-3 years, abdominal surgery mortality 82% Madrey score 42 -> may benefit from steroids Completed N-acetylcysteine IV daily on 09/13 for acute on chronic liver failure Completed 3 days of Phytonadione 10 mg SC daily ffrom 09/10-09/13 ? Status post paracentesis on 09/18 with removal of 550 cc straw-colored fluid ? SAAG of 1.4, which is > 1.1 and highly suggestive of portal hypertension ? 1 WBC in peritoneal fluid -> no SBP Renal #Respiratory acidosis #Non anion gap metabolic acidosis Grunting and responsive to pain only. Had 1 bowel movements in the past 48 hours. ? Lactulose and rifaxamin as above ? Aspiration precautions, head of bed elevation ? Continue Bicitra #Acute kidney injury, likely prerenal in setting of cirrhosis (hepatorenal syndrome) Baseline Cr 0.5 Urine creatinine 216, urine random protein 100, urine sodium <15, urine potassium 50, urine chloride <20 Renal US 09/08: no hydronephrosis, no significant cortical thinning Underwent dialysis on 09/18 but patient did not tolerate and will likely not be able to tolerate moving forward. Urine output decreasing ? Octreotide 09/13-09/18 ? Pressors as noted above ? Albumin ? Nephrology consulted, appreciate recommendations ? Renally dose medications and avoid nephrotoxic agents Heme/Onc #Acute blood loss anemia, stable ? Continue to monitor daily CBC Endocrine #Subclinical hypothyroidism TSH 0.39, T4 0.84 Likely normal based on patient age Infectious disease #? Spontaneous bacterial peritonitis, ruled out WBC uptrending, though no fevers. Freddy HERNÁNDEZ'hussein. Hospital management: Disposition: critically ill in ICU Fluids: none Diet: NPO Lines: PIV, temp dialysis catheter, OG tube DVT prophylaxis: SCDs Garcia: placed CODE STATUS: DNR Case was discussed with Dr Alvarado PGY-3 and attending physician, Dr Heath Pascual MD PGY-1 Disclaimer: This note was dictated by speech recognition. Minor errors in vulcanizing machine operator may be present due to voice recognition software. Attending Provider Attestation/Addendum Patient seen and examined with resident, Fernando Pascual MD. I agree with the findings, assessment, and plan of care as documented except for differences below. We will continue all supportive care with appropriate low tidal volume mechanical ventilation, holding fentanyl now as well to determine improvement in mentation from hepatic encpehalopathy, minimal utility in trickle tube feeding given high vasopressor requirements at this point. Remains on appropriate prophylaxis. Transfuse to address coagulopathy and blood loss. Calcium given as well. No suspicion of active bleeding given no output from GI tract via NG tube or per rectum. Continue with octreotide, albumin, and maintenance of MAP goal to optimize for hepatorenal syndrome. Family is agreeable to allow limited time trial in ICU given lack of progress. Would like to wait until holiday on Sunday to determine transition to comfort measures. Remains DNR in interim. Total critical care time: Personally spent 35 minutes for review of physiologic parameters, directed plan of care throughout the day, and counseling patients family at bedside. This is exclusive of time spent teaching housestaff or performing any separate billable procedures. Patient continues to require critical care services for acute respiratory failure and decompensated liver cirrhosis with hepatic encephalopathy. Patient remains at high risk for mortality and further morbidity warranting ongoing management and care will be available in the intensive care unit.
[2024-09-21] MEDS: DEXTROSE 50%-WATER INJ 50 ML SYRINGE IV (10:48)
[2024-09-21] MEDS: Norepinephrine/NS 16mg/250ml 16 MG/250 ML BAG 25.583 MG IV (13:12)
--- NOTE | 2024-09-21 15:08 | ESPR_ITS ---
Documentation for date of: 09/21/24 Subjective Subjective Interval history: Patient evaluated in the ICU Hemoglobin hematocrit 7.8 and 23.8 Platelet count is 23,000 Pro time INR is 2.4 BUN/creatinine 64 and 3.5 Exam Vital Signs Temp Pulse Resp BP Pulse Ox O2 Del Method O2 Flow Rate 96.7 F L 74 10 L 108/64 97 Mechanical Ventilation 3 09/21/24 04:30 09/21/24 13:15 09/21/24 06:40 09/21/24 13:15 09/21/24 13:15 09/21/24 06:00 09/16/24 12:00 FiO2 50 09/21/24 12:00 Objective Labs 09/21/24 04:45 09/21/24 04:45 Labs: Laboratory Results - last 24 hr 09/21/24 04:45 WBC 15.8 H RBC 2.46 L Hgb 7.8 L Hct 23.8 L MCV 97 MCH 31.7 MCHC 32.8 RDW Std Deviation 73.3 H Plt Count 23 L* Neut % (Auto) 78 Lymph % (Auto) 8 L [place] % (Auto) 9 Eos % (Auto) 4 Baso % (Auto) 0 Neut # (Auto) 12.4 H Lymph # (Auto) 1.2 [place] # (Auto) 1.4 H Eos # (Auto) 0.6 H Baso # (Auto) 0.0 Immature Gran # (Auto) 0.12 H Absolute Nucleated RBC 0.04 H Immature Gran % 1 H Nucleated RBC % 0 Sodium 145 Potassium 3.6 D Chloride 111 H Carbon Dioxide 23.9 Anion Gap 10 BUN 64 H Creatinine 3.5 H Estim Creat Clear Calc 21.1 L eGFR 17 L BUN/Creatinine Ratio 18 Glucose 81 Calculated Osmolality 306 H Calcium 9.4 Corrected Calcium 10.0 Total Bilirubin 31.1 H* D AST 73 H ALT 39 Alkaline Phosphatase 123 H Ammonia 241 H* Total Protein 6.3 Albumin 3.3 L D Globulin 3.0 Albumin/Globulin Ratio 1.1 L Misc Test Result Platelets confirmed Impressions Impression: Decompensated end-stage liver disease with very poor prognosis Hepatorenal syndrome Acute hepatic encephalopathy respiratory failure requiring endotracheal intubation mechanical ventilation Patient is now DNR He should be actually a comfort care Very poor prognosis ABG Interpretation ABG results: 08/28/24 08/29/24 09/03/24 22:40 10:05 15:24 ABG pH 7.41 7.50 H ABG pCO2 29 L 33 ABG pO2 69 L 63 L ABG HCO3 18 L 25 ABG O2 Saturation 94 94 ABG Base Excess -6 L 2 VBG pH 7.41 VBG pCO2 47 VBG pO2 30 VBG Base Excess 4 H 09/16/24 09/16/24 09/17/24 10:57 15:20 05:09 ABG pH 7.27 L 7.34 L 7.29 L ABG pCO2 48 40 46 ABG pO2 88 240 H D 64 L D ABG HCO3 22 21 22 ABG O2 Saturation 96 101 H 89 L ABG Base Excess -5 L -4 L -5 L VBG pH VBG pCO2 VBG pO2 VBG Base Excess 09/17/24 18:49 ABG pH 7.33 L ABG pCO2 41 ABG pO2 71 L ABG HCO3 22 ABG O2 Saturation 93 ABG Base Excess -4 L VBG pH VBG pCO2 VBG pO2 VBG Base Excess Assessment & Plan A&P Narrative # Acute upper GI bleed in the form of melena # Acute posthemorrhagic anemia # Acute hepatic encephalopathy # Chronic liver disease with thrombocytopenia abnormal liver function test and coagulopathy secondary to alcohol Plan Agree with the blood transfusion give patient 2 units of PRBC Octreotide infusion Lactulose and Xifaxan Consent will be obtained from the sister who makes that decision for fiberoptic esophagogastroduodenoscopy with possible therapeutic intervention under intravenous moderate sedation Prognosis guarded Thank you for the opportunity to participate in the care of this patient Time Spent With Patient Time: Total time spent is greater than 50% in coordination of care (as documented) at patient's floor/unit and/or counseling patient:
[2024-09-21] MEDS: DEXTROSE 10%-WATER 500 ML 15 ML IV (17:44)
--- NOTE | 2024-09-21 18:30 | ESPR_ITS ---
Documentation for date of: 09/21/24 Subjective Subjective Interval history: Chart review done. Mr. Stack is a 74-year-old male with past medical history of liver cirrhosis secondary to alcohol use disorder, esophageal varices, ?Asthma/COPD, GERD, anxiety and BPH presented to [facility] on 08/28/2024 with a chief complaint of altered mental status. per EMS patient was found to be naked and altered. Noted to have dark blood all over the floor. During the hospital course patient had a GI bleed and was seen by Dr. Hall. Also noted to have metabolic encephalopathy-lactulose, rifaximin were initiated. For the last 24 hours his urine output has dropped significantly and renal consultation was requested. CT brain was negative. 09/08/2024 patient currently seen in telemetry.His current medications included folic acid, lactulose, Protonix, propranolol, rifaximin, thiamine.WBC 11.9, hemoglobin 9.5, platelets 131. Sodium 137, potassium 3.3, BUN 43, creatinine 2.9, calcium 9, phosphorus 3.9, total bilirubin 15.2, AST 132, ALT 53, albumin 1.7. Urine showed concentrated urine with blood and bilirubin. Urine sodium less than 15. Talk screen was negative. Hep panel showed AB and AB-. Hep C positive. Renal ultrasound this afternoon showed no hydronephrosis. No cortical thinning consistent with normal kidneys. Head CT on admission was negative. 09/09/2024 patient currently seen in telemetry. Today he seems to be more alert and awake. Last night hospitalist team called-patient complaining of abdominal pain and shortness of breath. Chest x-ray showed dilated bowel loops. Recommended KUB which showed ileus-NG tube was inserted overnight. Patient currently seems to be feeling little bit better. Denies any abdominal pain. Hemoglobin 9, platelets 109, WBC 11, sodium 137, potassium 3.4, BUN 44, creatinine 3.6, GFR 17, bilirubin significantly elevated to 19, AST 113, ALT 48, alk phos 155, albumin 2.1 urine sodium less than 15 urine output 225 mL/day Noted team started the patient on steroids. Patient has a decompensated liver cirrhosis. Hep C positive. Viral load pending. Dr. Hall on the case. Patient currently on albumin, midodrine, normal saline to rule out hepatorenal syndrome. Will continue the same for another 24 hours. If no improvement then HRS 1 diagnosis will be made 09/10/2024 patient currently seen in telemetry. He is having breakfast. Denies any chest pain, shortness of breath. More alert and awake. Made 500 mL urine last night. Blood sugar 109. Blood pressure 100/53, heart rate 69. WBC 12.3, hemoglobin 8.2, platelets 94. Sodium 137, potassium 3.4, bicarbonate 18.8, BUN 56, creatinine 3.9, glucose 133, calcium 9.1, phosphorus 5.1, magnesium 2.6, total bilirubin 20.9, AST 53, ALT 43, alk phos 133, albumin 2.4. He is currently on midodrine, normal saline at 125 mL/h, albumin 3 times daily, rifaximin. 09/16/2024 Patient currently seen in telemetry. This morning he seems to be slow in response. Significant jaundice noted. Creatinine improved to 3.1. Urine output overnight more than [address] Coulter-will do gentle IV fluids. Patient not taking his lactulose. Dr. Coulter planning to place a rectal tube with the lactulose pr. 09/18/2024 patient currently seen in ICU. Currently on pressors. Urine output started to decrease. Patient currently on ventilator. Labs, medications reviewed. ICU team placed Vas-Cath. Family requesting all aggressive measures including dialysis despite explaining poor prognosis and not a candidate for outpatient dialysis. Dialysis ordered today. Patient on dialysis. 09/21/2024 patient currently seen in ICU. Unable to tolerate dialysis yesterday due to bradycardia and hypotension. Unfortunately is not a candidate for dialysis and cannot proceed with further dialysis sessions. Remains on ventilator. ICU team spoke to family and they are leaning towards comfort care. Patient currently in multisystem organ failure (encephalopathy, respiratory failure, liver failure, kidney failure, coagulopathy, GI bleed). Prognosis remains grim. Currently he is DNR. Comfort care seems to be appropriate. Noted family planning to possible withdrawal on Sunday (Marco Sunday) Review of Systems Review of Systems ROS Unobtainable: due to endotracheal tube Exam Vital Signs Temp Pulse Resp BP Pulse Ox O2 Del Method O2 Flow Rate 35.9 C L 74 10 L 111/66 95 Mechanical Ventilation 3 09/21/24 04:30 09/21/24 16:30 09/21/24 06:40 09/21/24 16:30 09/21/24 16:30 09/21/24 06:00 09/16/24 12:00 FiO2 50 09/21/24 16:00 Narrative Exam GENERAL APPEARANCE patient currently seen in ICU. On vent. NECK: Neck supple, no JVD or bruit CARDIOVASCULAR: Heart regular, no murmurs LUNGS/CHEST: Few rhonchi noted bilaterally ABDOMEN: Distended with good bowel sounds. EXTREMITIES: 2+ edema noted in the extremities SKIN: Jaundiced MUSCULOSKELETAL: In bed NEUROLOGICAL : Intubated, sedated Objective Labs 09/21/24 04:45 09/21/24 04:45 Labs: Laboratory Results - last 24 hr 09/21/24 04:45 WBC 15.8 H RBC 2.46 L Hgb 7.8 L Hct 23.8 L MCV 97 MCH 31.7 MCHC 32.8 RDW Std Deviation 73.3 H Plt Count 23 L* Neut % (Auto) 78 Lymph % (Auto) 8 L [place] % (Auto) 9 Eos % (Auto) 4 Baso % (Auto) 0 Neut # (Auto) 12.4 H Lymph # (Auto) 1.2 [place] # (Auto) 1.4 H Eos # (Auto) 0.6 H Baso # (Auto) 0.0 Immature Gran # (Auto) 0.12 H Absolute Nucleated RBC 0.04 H Immature Gran % 1 H Nucleated RBC % 0 Sodium 145 Potassium 3.6 D Chloride 111 H Carbon Dioxide 23.9 Anion Gap 10 BUN 64 H Creatinine 3.5 H Estim Creat Clear Calc 21.1 L eGFR 17 L BUN/Creatinine Ratio 18 Glucose 81 Calculated Osmolality 306 H Calcium 9.4 Corrected Calcium 10.0 Total Bilirubin 31.1 H* D AST 73 H ALT 39 Alkaline Phosphatase 123 H Ammonia 241 H* Total Protein 6.3 Albumin 3.3 L D Globulin 3.0 Albumin/Globulin Ratio 1.1 L Misc Test Result Platelets confirmed ABG Interpretation ABG results: 08/28/24 08/29/24 09/03/24 22:40 10:05 15:24 ABG pH 7.41 7.50 H ABG pCO2 29 L 33 ABG pO2 69 L 63 L ABG HCO3 18 L 25 ABG O2 Saturation 94 94 ABG Base Excess -6 L 2 VBG pH 7.41 VBG pCO2 47 VBG pO2 30 VBG Base Excess 4 H 09/16/24 09/16/24 09/17/24 10:57 15:20 05:09 ABG pH 7.27 L 7.34 L 7.29 L ABG pCO2 48 40 46 ABG pO2 88 240 H D 64 L D ABG HCO3 22 21 22 ABG O2 Saturation 96 101 H 89 L ABG Base Excess -5 L -4 L -5 L VBG pH VBG pCO2 VBG pO2 VBG Base Excess 09/17/24 18:49 ABG pH 7.33 L ABG pCO2 41 ABG pO2 71 L ABG HCO3 22 ABG O2 Saturation 93 ABG Base Excess -4 L VBG pH VBG pCO2 VBG pO2 VBG Base Excess Assessment & Plan Assessment and plan (1) Acute renal failure (ARF): Status: Acute (2) Acute upper gastrointestinal bleeding: Status: Acute (3) Cirrhosis of liver: Status: Acute (4) Hepatic encephalopathy: Status: Acute (5) Anemia: Status: Acute Additional Assessment & Plan Additional Plan: (1) Acute renal failure (ARF): Status: Acute Assessment and plan: Acute renal failure with worsening renal function and decreased urine output- rule out hepatorenal syndrome versus prerenal azotemia// ATN with fluctuations in blood pressure. Patient was given as needed diuretics. Currently on rifaximin, albumin, midodrine, octreotide. 09/21/2024 patient so far received a few dialysis sessions. However recent treatment last week did not tolerate due to significant hypotension and bradycardia. ICU team had a long conversation with family regarding poor prognosis. They agreed for comfort care. Currently DNR status. Wants to wait until Sunday for possible withdrawal. Patient not a liver transplant candidate. Despite dialysis outcomes seems dismal. Worsening liver failure. At this point cannot offer any further dialysis sessions. Patient currently in multisystem organ failure. Critical care time spent more than 35 minutes regarding plan of care and disease management. (2) Acute upper gastrointestinal bleeding: Status: Acute Assessment and plan: Dr. Hall on the case. On PPI (3) Cirrhosis of liver: Status: Acute Assessment and plan: Patient seems to have decompensated liver cirrhosis with GI bleed, varices, hepatic encephalopathy, worsening renal function, thrombocytopenia, anemia. GI on the case. On lactulose, rifaximin, octreotide patient has a prolonged hospital course for the last couple of weeks Patient did receive steroids. Patient received couple of doses of NAC. No improvement in liver function (4) Hepatic encephalopathy: Status: Acute Assessment and plan: On lactulose- on vent (5) Anemia: Status: Acute Assessment and plan: As needed transfusions 6) acute respiratory failure-on ventilator 7) sepsis-on pressors. Plan of care discussed with ICU team.
[2024-09-21] MEDS: Norepinephrine/NS 16mg/250ml 16 MG/250 ML BAG 20.29 MG IV (22:23)
[2024-09-22] VITALS (112 sets, daily range): BP systolic 76–169; BP diastolic 47–84; PULSE 64–126; RESP 4–16; TEMP 36.4–36.7; O2SAT 85–98; BMI 29.9
[2024-09-22] MEDS: DEXTROSE 50%-WATER INJ 50 ML SYRINGE 25 ML IV ×2 (05:47→16:06)
[2024-09-22] MEDS: ALBUMIN HUMAN 25% IVPB 25 GM/100 ML BTL IV ×3 (05:48→21:15)
[2024-09-22] MEDS: LACTULOSE SYRUP 20 GM/30 ML UDC 30 GM NG ×4 (05:48→21:11)
[2024-09-22 05:59] LABS: Basophils % (Auto) 0 % (0-2.5); Eosinophils # (Auto) 0.5 Thou/mm3 (0.0-0.5); Eosinophils % (Auto) 4 % (0-10); Immature Granulocytes % (Auto) 1 % (0-0); Immature Granulocytes Auto 0.12 Thou/mm3 (0.00-0.00); Lymphocytes # (Auto) 1.2 Thou/mm3 (1.0-4.8); Lymphocytes % (Auto) 10 % (10-50); Mean Corpuscular HGB Conc 32.7 g/dl (31.0-37.0); Mean Corpuscular Hemoglobin 32.3 pg (25.0-35.0); Mean Corpuscular Volume 99 fL (80-100); Monocytes # (Auto) 1.1 Thou/mm3 (0.0-0.8); Monocytes % (Auto) 10 % (0-12); Neutrophils # (Auto) 9.1 Thou/mm3 (1.8-7.7); Neutrophils % (Auto) 76 % (37-80); Nucleated Red Blood Cell # 0.03 Thou/mm3 (0.00-0.00); Nucleated Red Blood Cell % 0 /100 WBC (0); RDW Standard Deviation 74.6 fL (35.1-43.9); Red Blood Count 2.17 Miln/mm3 (4.50-5.90)
[2024-09-22 06:03] LABS: Hematocrit 21.4 % (41.0-53.0)
[2024-09-22 06:04] LABS: Platelet Count 22 Thou/mm3 (140-440)
[2024-09-22 06:25] LABS: Slide Review Platelets confirmed
[2024-09-22 06:30] LABS: Alanine Aminotransferase 32 U/L (10-49); Albumin, Serum 3.4 gm/dL (3.4-4.8); Albumin/Globulin Ratio 1.2 (1.2-2.2); Alkaline Phosphatase 110 U/L (46-116); Anion Gap 11 (7-16); Aspartate Amino Transferase 61 U/L (0-34); BUN/Creatinine Ratio 20 Ratio (12-20); Blood Urea Nitrogen 60 mg/dL (9-23); Calcium 9.4 mg/dL (8.3-10.6); Calcium (Corrected) 9.9 mg/dL (8.5-10.1); Carbon Dioxide 24.2 mMol/L (20.0-31.0); Chloride 113 mMol/L (98-107); Globulin 2.8 gm/dL (2.3-3.5); Glucose 72 mg/dL (74-106); Osmolality,Calculated 310 (275-295); Potassium 3.4 mMol/L (3.4-5.1); Sodium 148 mMol/L (136-145); Total Protein 6.2 gm/dL (5.7-8.2); eGFR 21 See Note
[2024-09-22 06:41] LABS: Ammonia 226 uMol/L (11-32); Estimated Creatinine Clearance 24.2 mL/min (>60)
[2024-09-22 06:42] LABS: Bilirubin,Total 29.7 mg/dL (0.3-1.2)
[2024-09-22 06:58] LABS: Cortisol,total,LC/MS/MS* 7.3 mcg/dL
[2024-09-22] MEDS: VASOPRESSIN IN NS IVPB 20 UNIT/100 ML BAG 9 UNIT IV ×2 (09:31→18:30)
[2024-09-22] MEDS: METOCLOPRAMIDE INJ 5 MG/ML VIAL 2 ML IVP (09:31)
[2024-09-22] MEDS: FOLIC ACID 1 MG TABLET NG (09:31)
[2024-09-22] MEDS: CITRIC ACID/SODIUM CITR 15 ML UDC (BICITRA) 30 ML NG (09:31)
[2024-09-22] MEDS: THIAMINE 100 MG TABLET NG (09:31)
[2024-09-22] MEDS: rifaximin 550 MG TABLET NG ×2 (09:31→21:13)
[2024-09-22 10:48] LABS: Lactate (Lactic Acid) 1.7 mMol/L (0.4-2.0)
[2024-09-22] MEDS: Norepinephrine/NS 16mg/250ml 16 MG/250 ML BAG 20.29 MG IV (10:53)
[2024-09-22] MEDS: FUROSEMIDE INJ 10 MG/ML 4ML VIAL 40 MG IVP (11:04)
--- NOTE | 2024-09-22 11:15 | ESPR_ITS ---
<Statement entered by Les Alvarado MD - 09/22/24 17:58> I discussed with and supervised my co-resident involved in the care of this patient. I agree with the assessment and plan as documented above. Les Alvarado,PGY-3 Disclaimer: Despite multiple revisions, due to the dictation software being used, the document below may not be free of grammatical errors including phonetic/typographic errors. However, this does not deter from our commitment to providing health care in the patient's best interest in mind. Documentation for date of: 09/22/24 Subjective Subjective Interval history: Patient seen and examined at bedside. No acute overnight events. Clinical status has remained unchanged, weaned completely off of fentanyl. On examination, sluggish pupillary reflexes. Patient has swelling up to anasarca, nephrology evaluated, will start IV Lasix 40 mg daily. Patient had 1 small bowel movement on lactulose yesterday, and urine output of 1.04 L. Added Reglan to help with motility. Stable blood pressure still on Levophed. Labs reviewed, hemoglobin downtrending, now at 7 and platelets of 22. Coag panel ordered: PT greater than 63, APTT one 0.2, fibrinogen 50. Will transfuse 3 units of blood precipitate now. Hypernatremia with sodium of 148, will start free water flushes at 25 cc/h. Lactic acid reviewed, 2.1, will start some trickle feeds, dietitian consulted. Exam Vital Signs Temp Pulse Resp BP Pulse Ox O2 Del Method O2 Flow Rate 98.0 F 70 10 L 114/62 95 Mechanical Ventilation 3 09/22/24 07:00 09/22/24 11:04 09/22/24 01:00 09/22/24 11:04 09/22/24 10:45 09/22/24 04:00 09/16/24 12:00 FiO2 50 09/22/24 10:32 Narrative Exam GENERAL: Intubated and mechanically ventilated, off sedation NEURO: GCS-3, sluggish pupillary reflexes HEENT: Dey mucosa. Eyes open, symmetrical, icteric CARDIO: No chest pain on palpation. Heart RRR, no obvious murmurs PULM: Decreased breath sounds on the right GI: Abdomen firm, mildly distended s/p paracentesis, rectal tube in-situ URO/INVESTMENT BANKING MANAGER:: No further abnormalities noted. Garcia catheter in-situ SKIN/MSK/EXT: Icteric skin, bilateral pitting edema Objective Labs 09/24/24 09:06 09/24/24 04:44 Labs: Laboratory Results - last 24 hr 09/14/24 09/22/24 09/22/24 05:28 05:31 10:20 WBC 12.0 H RBC 2.17 L Hgb 7.0 L Hct 21.4 L* MCV 99 MCH 32.3 MCHC 32.7 RDW Std Deviation 74.6 H Plt Count 22 L* Neut % (Auto) 76 Lymph % (Auto) 10 [place] % (Auto) 10 Eos % (Auto) 4 Baso % (Auto) 0 Neut # (Auto) 9.1 H Lymph # (Auto) 1.2 [place] # (Auto) 1.1 H Eos # (Auto) 0.5 Baso # (Auto) 0.0 Immature Gran # (Auto) 0.12 H Absolute Nucleated RBC 0.03 H Immature Gran % 1 H Nucleated RBC % 0 Sodium 148 H Potassium 3.4 Chloride 113 H Carbon Dioxide 24.2 Anion Gap 11 BUN 60 H Creatinine 3.0 H D Estim Creat Clear Calc 24.2 L eGFR 21 L BUN/Creatinine Ratio 20 Glucose 72 L Calculated Osmolality 310 H Lactic Acid 1.7 Calcium 9.4 Corrected Calcium 9.9 Total Bilirubin 29.7 H* D AST 61 H ALT 32 Alkaline Phosphatase 110 Ammonia 226 H* Total Protein 6.2 Albumin 3.4 Globulin 2.8 Albumin/Globulin Ratio 1.2 Total Cortisol 7.3 Misc Test Result Platelets confirmed ABG Interpretation ABG results: 08/28/24 08/29/24 09/03/24 22:40 10:05 15:24 ABG pH 7.41 7.50 H ABG pCO2 29 L 33 ABG pO2 69 L 63 L ABG HCO3 18 L 25 ABG O2 Saturation 94 94 ABG Base Excess -6 L 2 VBG pH 7.41 VBG pCO2 47 VBG pO2 30 VBG Base Excess 4 H 09/16/24 09/16/24 09/17/24 10:57 15:20 05:09 ABG pH 7.27 L 7.34 L 7.29 L ABG pCO2 48 40 46 ABG pO2 88 240 H D 64 L D ABG HCO3 22 21 22 ABG O2 Saturation 96 101 H 89 L ABG Base Excess -5 L -4 L -5 L VBG pH VBG pCO2 VBG pO2 VBG Base Excess 09/17/24 18:49 ABG pH 7.33 L ABG pCO2 41 ABG pO2 71 L ABG HCO3 22 ABG O2 Saturation 93 ABG Base Excess -4 L VBG pH VBG pCO2 VBG pO2 VBG Base Excess Quality Measures Quality Measures none Advance care planning discussed with:: other Assessment & Plan Assessment Current Active Medications: Generic Name Dose Route Start Last Admin Trade Name Freq PRN Reason Stop Dose Admin Albuterol/Ipratropium 3 ml 08/28/24 20:24 09/12/24 19:57 Albuterol/Ipratropium (Duoneb) Rt Janessa 3 Ml Nebu INH 09/27/24 22:59 3 ml Q4HRRT PRN Administration Wheeze Atropine Sulfate 0.5 mg 09/18/24 10:10 Atropine Sulf Inj 0.1 Mg/Ml Syr 10 Ml IVP 10/18/24 10:09 Q3MIN PRN BRADYCARDIA (HR<50) Citric Acid/Sodium Citrate 30 ml 09/16/24 16:00 09/22/24 09:31 Citric Acid/Sodium Citr 15 Ml Udc (Bicitra) NG 10/16/24 15:59 30 ml DAILY JERSON Administration Dextrose 25 ml 09/15/24 06:05 09/22/24 05:47 Dextrose 50%-Water Inj 50 Ml Syringe IV 10/15/24 06:04 25 ml Q15MIN PRN Administration BG 50-70 responsive npo pt Dextrose 50 ml 09/15/24 06:05 09/21/24 10:48 Dextrose 50%-Water Inj 50 Ml Syringe IV 10/15/24 06:04 50 ml Q15MIN PRN Administration BG <50 OR BG <70 & pt unresponsive Folic Acid 1 mg 09/17/24 09:00 09/22/24 09:31 Folic Acid 1 Mg Tablet NG 10/17/24 08:59 1 mg QDAY JERSON Administration Furosemide 40 mg 09/22/24 11:00 09/22/24 11:04 Furosemide Inj 10 Mg/Ml 4ml Vial IVP 10/22/24 10:59 40 mg QDAY JERSON Administration Glucagon 1 mg 09/15/24 06:05 Glucagon Inj 1 Mg Vial IM Q15MIN PRN BG <70, and no IV access Heparin Sodium (Porcine) 2,600 unit 09/18/24 09:00 09/18/24 10:43 Heparin Sod Inj 1000 Unit/Ml Vial 10 Ml INDWELLCAT 10/02/24 08:59 2,600 unit PRN PRN Administration DIALYSIS Propofol 1,000 mg in 100 mls @ 2.685 mls/hr 09/16/24 13:43 09/20/24 09:10 Diprivan Ivpb IV 10/16/24 13:42 0 mcg/kg/min .Q24H PRN 0 mls/hr PER PROTOCOL Titration Protocol 5 MCG/KG/MIN Vasopressin/Sodium Chloride 20 unit in 100 mls @ 9 mls/hr 09/16/24 16:43 09/22/24 09:31 Vasostrict/Ns Ivpb IV 10/16/24 16:42 0.03 unit/min .Q11H7M PRN 9 mls/hr PER PROTOCOL Administration Protocol 0.03 UNIT/MIN Phenylephrine HCl 40 mg/ 100 mls @ 7.058 mls/hr 09/18/24 10:12 09/18/24 22:00 Sodium Chloride IV 10/18/24 10:11 0 mcg/kg/min .[id number] PRN 0 mls/hr Per Sepsis Protocol Titration Protocol 0.5 MCG/KG/MIN Norepinephrine Bitartrate 16 mg in 250 mls @ 4.411 mls/hr 09/18/24 15:47 09/22/24 10:53 Levophed In Ns 16mg/250ml IV 10/18/24 15:46 0.23 mcg/kg/min .Q24H PRN 20.29 mls/hr PER PROTOCOL Administration Protocol 0.05 MCG/KG/MIN Octreotide Acetate 1,000 mcg/ 102 mls @ 5.1 mls/hr 09/19/24 08:56 09/21/24 22:21 Sodium Chloride IV 09/24/24 08:56 50 mcg/hr .Q20H JERSON 5.1 mls/hr Administration Protocol 50 MCG/HR Albumin Human 25 gm in 100 mls @ 100 mls/hr 09/20/24 14:00 09/22/24 05:48 Albuminar-25 Ivpb IV 09/23/24 13:59 100 mls/hr TID JERSON Administration Dextrose 500 mls @ 15 mls/hr 09/21/24 17:45 09/21/24 17:44 D10w IV 09/23/24 17:44 15 mls/hr .Q24H JERSON Administration Lactulose 30 gm 09/16/24 20:08 09/22/24 11:05 Lactulose Syrup 20 Gm/30 Ml Udc NG 10/16/24 18:59 30 gm QID JERSON Administration Protocol Propranolol HCl 10 mg 09/16/24 21:00 Propranolol 10 Mg Tablet NG 10/16/24 20:59 BID JERSON Rifaximin 550 mg 09/16/24 21:00 09/22/24 09:31 Rifaximin 550 Mg Tablet NG 09/23/24 20:59 550 mg BID JERSON Administration Sevelamer Carbonate 0.8 gm 09/17/24 08:00 09/18/24 08:50 Sevelamer Carbonate 0.8 Gm Packet (Non-Formulary) NG 10/17/24 07:59 Not Given TIDWM JERSON Protocol Sodium Chloride 5 ml 08/28/24 17:29 08/28/24 18:47 Sodium Chloride Rt Janessa 0.9% 3 Ml Nebu INH 09/27/24 17:28 3 ml PRN PRN Administration SOLN Thiamine HCl 100 mg 09/17/24 09:00 09/22/24 09:31 Thiamine 100 Mg Tablet NG 10/17/24 08:59 100 mg QDAY JERSON Administration Plan Summary: Abdifatah Stack is a 74-year-old male with past medical history of HCV, alcoholic cirrhosis, esophageal varices, GERD, anxiety, and BPH who presented on 08/28 with AMS after being found by caregiver in [facility] of dark-colored blood. During hospital course, received EGD on 09/01 which showed grade 1 varices (not large enough for band ligation), hemorrhagic gastritis, and hypertensive portal gastropathy with mucosal oozing as source of bleeding. Over past couple of days, noted to become more encephalopathic and developed worsening respiratory failure and required intubation and subsequently upgraded to ICU on 09/16. Neurological #Acute encephalopathy, likely hepatic/metabolic Baseline, conversational and oriented x 3. On admission, encephalopathic and A&O x 0 that improved throughout hospitalization. However, throughout last couple of days was noted to become more encephalopathic. Repeat CT head on 09/16: Negative for acute hemorrhage, mass effect, or midline shift Ammonia 241, BUN 64, Cr 3.5 Yet to have a BM in the last 5days. Added reglan to improve motility Plan: - Reglan to improve motility ? Lactulose 30 g 4 times daily ? Rifaximin 550 mg twice daily ? Aspiration precautions, head of bed elevation Cardiovascular #Shock, hypovolemic due to third spacing in setting of cirrhosis vs distributive (septic), resolved History of cirrhosis with prominent ascites seen on CT A/P on 09/16. #Bradycardia, in setting of propofol Pulmonary #Acute respiratory failure requiring intubation GCS 6 and respiratory distress prior to intubation ? Vent settings: VT 550, RR 15, PEEP 5, FiO2 35% #Aspiration pneumonia, resolved With AMS and CXR showed large right-sided pleural effusion. Completed 7 days of Augmentin (08/30 to 09/06). #History of COPD Home medication Trelegy inhaler ? DuoNebs as needed Gastrointestinal #Acute blood loss anemia secondary to GI bleed #Esophageal varices, resolved Found unconscious in a pool of coffee-ground emesis Transfused one unit of pRBC and platelet yesterday Hgb today- 7.9, PLT- 22 09/22/2024: Hemgolobin at 7 today, will consider transfusing if it drops any further - Will continue to monitor H&H #Acute on chronic liver failure with coagulopathy and thrombocytopenia #Portal hypertension with esophageal varices, hypertensive portal gastropathy and ascites #Hyperbilirubinemia CMV IgG positive, IgM negative. EBV IgG positive, IgM negative. HAV negative, HBV antigen nonreactive. HCV antibody reactive, RNA negative. HSV I/II IgG positive, HIV negative. EGD: diffuse hypertensive portal gastropathy with mucosal oozing of blood and 1+ esophageal varices not large enough for band ligation. Abdominal US on 09/11: gallbladder sludge, gallbladder wall thickened 0.5 cm, cirrhosis and mild ascites. Meld?NA score 38 points -> 65-66% 90-day mortality Child?Hernandez class C, 12 points -> life expectancy 1-3 years, abdominal surgery mortality 82% Madrey score 42 -> may benefit from steroids Completed N-acetylcysteine IV daily on 09/13 for acute on chronic liver failure Completed 3 days of Phytonadione [facility] ? Status post paracentesis on 09/18 with removal of 550 cc straw-colored fluid ? SAAG of 1.4, which is > 1.1 and highly suggestive of portal hypertension ? 1 WBC in peritoneal fluid -> no SBP Renal Hypernatremia Sodium today- 148. Free water deficit- 2.3L Plan: -Free water flushes starting at 25ccs/hr #Respiratory acidosis-resolved #Non anion gap metabolic acidosis -resolved Grunting and responsive to pain only. Had 1 bowel movements in the past 48 hours. ? Lactulose and rifaxamin as above ? Aspiration precautions, head of bed elevation ? Continue Bicitra #Acute kidney injury, likely prerenal in setting of cirrhosis (hepatorenal syndrome) Baseline Cr 0.5 Urine creatinine 216, urine random protein 100, urine sodium <15, urine potassium 50, urine chloride <20 Renal US 09/08: no hydronephrosis, no significant cortical thinning Underwent dialysis on 09/18 but patient did not tolerate and will likely not be able to tolerate moving forward. Urine output about 1.04L total yesterday. - IV Lasix 40mg Qday ? DC Octretide ? Albumin ? Nephrology consulted, appreciate recommendations ? Renally dose medications and avoid nephrotoxic agents Heme/Onc #Acute blood loss anemia #Thrombocytopenia #Possible DIC Platelet count today- 22. Repeat coag panel: PT greater than 63, APTT 112.2, fibrinogen 15 Plan: -Transfuse cryoprecipitate -Continue monitor hemoglobin -Consider transfusing hemoglobin drops less than 7 Endocrine #Subclinical hypothyroidism TSH 0.39, T4 0.84 Likely normal based on patient age Infectious disease #? Spontaneous bacterial peritonitis, ruled out WBC uptrending, though no fevers. Freddy HERNÁNDEZ'hussein. Hospital management: Disposition: critically ill in ICU Fluids: none Diet: NPO Lines: PIV, temp dialysis catheter, OG tube DVT prophylaxis: SCDs Garcia: placed CODE STATUS: DNR Case was discussed with Dr Alvarado PGY-3 and attending physician, Dr Heath Pascual MD PGY-1 Disclaimer: This note was dictated by speech recognition. Minor errors in reading interventionist may be present due to voice recognition software. Attending Provider Attestation/Addendum Patient seen and examined with resident, Fernando Pascual MD. I agree with the findings, assessment, and plan of care as documented except for differences below. We will continue all supportive care with appropriate low tidal volume mechanical ventilation, holding all sedation with no improvement in mentation from hepatic encpehalopathy, minimal utility in trickle tube feeding given high vasopressor requirements at this point- trial of reglan alternatively. No significant ascites component, BS+ on exam. Remains on appropriate prophylaxis. Transfuse to address coagulopathy and blood loss. Calcium given as well with blood products. No suspicion of active bleeding given no output from GI tract via NG tube or per rectum. Continue with octreotide, albumin, and maintenance of MAP goal to optimize for hepatorenal syndrome. If no significant improvement, doubt there will be, will plan on Sunday to transition to comfort measures.Family/ friends allowed to be present in final days of life. Appropriately is now DNR in interim. Total critical care time: Personally spent 30 minutes for review of physiologic parameters, directed plan of care throughout the day, and counseling patients family at bedside. This is exclusive of time spent teaching housestaff or performing any separate billable procedures. Patient continues to require critical care services for acute respiratory failure and decompensated liver cirrhosis with hepatic encephalopathy. Patient remains at high risk for mortality and further morbidity warranting ongoing management and care will be available in the intensive care unit.
[2024-09-22 12:05] LABS: Partial Thromboplastin Time 112.2 Seconds (22.0-36.0)
[2024-09-22 12:27] LABS: Fibrinogen 50 mg/dL (175-375)
--- NOTE | 2024-09-22 12:27 | PC.SS ---
Follow up note: Patient remains on vent support. SS spoke to family at bedside. They requested a unit manager rn be present Sunday to provide ashes. They also discussed documentation indicating the sister, Maggy, was the healthcare decision maker for patient. Patient's sister and family are trying to determine how to go about his remaining funds at the bank. Family is trying to plan out arrangements. They are aware patient is poor prognosis. SS advised the sister to go down to the bank to clarify what documentation is needed. SS and RECEIVING BARN CUSTODIAN will follow up with patient's family tomorrow.
[2024-09-22 12:28] LABS: Prothrombin Time > 63.0 Seconds (9.0-12.2)
--- NOTE | 2024-09-22 15:50 | PD.IMPROG ---
Documentation for date of: 09/22/24 Subjective Subjective Interval history: Patient evaluated Hemoglobin hematocrit 7.0 and 21.4 WBC count 12.7 BUN/creatinine sixteen 3.4 Patient is a DNR currently being ventilated through endotracheal intubation Family is going to decide on Sunday waiting for some other family members to make him a comfort care Exam Vital Signs Temp Pulse Resp BP Pulse Ox O2 Del Method O2 Flow Rate 98.0 F 78 10 L 114/62 96 Mechanical Ventilation 3 09/22/24 07:00 09/22/24 14:35 09/22/24 01:00 09/22/24 11:04 09/22/24 14:35 09/22/24 04:00 09/16/24 12:00 FiO2 40 09/22/24 14:35 Objective Labs 09/22/24 05:31 09/22/24 05:31 Labs: Laboratory Results - last 24 hr 09/14/24 09/22/24 09/22/24 05:28 05:31 10:20 WBC 12.0 H RBC 2.17 L Hgb 7.0 L Hct 21.4 L* MCV 99 MCH 32.3 MCHC 32.7 RDW Std Deviation 74.6 H Plt Count 22 L* Neut % (Auto) 76 Lymph % (Auto) 10 [place] % (Auto) 10 Eos % (Auto) 4 Baso % (Auto) 0 Neut # (Auto) 9.1 H Lymph # (Auto) 1.2 [place] # (Auto) 1.1 H Eos # (Auto) 0.5 Baso # (Auto) 0.0 Immature Gran # (Auto) 0.12 H Absolute Nucleated RBC 0.03 H Immature Gran % 1 H Nucleated RBC % 0 PT > 63.0 H* D INR APTT 112.2 H* D Fibrinogen 50 L* Sodium 148 H Potassium 3.4 Chloride 113 H Carbon Dioxide 24.2 Anion Gap 11 BUN 60 H Creatinine 3.0 H D Estim Creat Clear Calc 24.2 L eGFR 21 L BUN/Creatinine Ratio 20 Glucose 72 L Calculated Osmolality 310 H Lactic Acid 1.7 Calcium 9.4 Corrected Calcium 9.9 Total Bilirubin 29.7 H* D AST 61 H ALT 32 Alkaline Phosphatase 110 Ammonia 226 H* Total Protein 6.2 Albumin 3.4 Globulin 2.8 Albumin/Globulin Ratio 1.2 Total Cortisol 7.3 Misc Test Result Platelets confirmed Impressions Impression: Chronic liver disease decompensated Hepatorenal syndrome Respiratory failure requiring mechanical ventilation Continue supportive care ABG Interpretation ABG results: 08/28/24 08/29/24 09/03/24 22:40 10:05 15:24 ABG pH 7.41 7.50 H ABG pCO2 29 L 33 ABG pO2 69 L 63 L ABG HCO3 18 L 25 ABG O2 Saturation 94 94 ABG Base Excess -6 L 2 VBG pH 7.41 VBG pCO2 47 VBG pO2 30 VBG Base Excess 4 H 09/16/24 09/16/24 09/17/24 10:57 15:20 05:09 ABG pH 7.27 L 7.34 L 7.29 L ABG pCO2 48 40 46 ABG pO2 88 240 H D 64 L D ABG HCO3 22 21 22 ABG O2 Saturation 96 101 H 89 L ABG Base Excess -5 L -4 L -5 L VBG pH VBG pCO2 VBG pO2 VBG Base Excess 09/17/24 18:49 ABG pH 7.33 L ABG pCO2 41 ABG pO2 71 L ABG HCO3 22 ABG O2 Saturation 93 ABG Base Excess -4 L VBG pH VBG pCO2 VBG pO2 VBG Base Excess Assessment & Plan A&P Narrative # Acute upper GI bleed in the form of melena # Acute posthemorrhagic anemia # Acute hepatic encephalopathy # Chronic liver disease with thrombocytopenia abnormal liver function test and coagulopathy secondary to alcohol Plan Agree with the blood transfusion give patient 2 units of PRBC Octreotide infusion Lactulose and Xifaxan Consent will be obtained from the sister who makes that decision for fiberoptic esophagogastroduodenoscopy with possible therapeutic intervention under intravenous moderate sedation Prognosis guarded Thank you for the opportunity to participate in the care of this patient Time Spent With Patient Time: Total time spent is greater than 50% in coordination of care (as documented) at patient's floor/unit and/or counseling patient:
--- NOTE | 2024-09-22 16:25 | PD.RESPRO ---
Documentation for date of: 09/22/24 Subjective Subjective Interval history: Mr. Stack is a 74-year-old male with past medical history of liver cirrhosis secondary to alcohol use disorder, esophageal varices, ?Asthma/COPD, GERD, anxiety and BPH presented to [facility] on 08/28/2024 with a chief complaint of altered mental status. per EMS patient was found to be naked and altered. Noted to have dark blood all over the floor. During the hospital course patient had a GI bleed and was seen by Dr. Hall. Also noted to have metabolic encephalopathy-lactulose, rifaximin were initiated. For the last 24 hours his urine output has dropped significantly and renal consultation was requested. CT brain was negative. 09/08/2024 patient currently seen in telemetry.His current medications included folic acid, lactulose, Protonix, propranolol, rifaximin, thiamine.WBC 11.9, hemoglobin 9.5, platelets 131. Sodium 137, potassium 3.3, BUN 43, creatinine 2.9, calcium 9, phosphorus 3.9, total bilirubin 15.2, AST 132, ALT 53, albumin 1.7. Urine showed concentrated urine with blood and bilirubin. Urine sodium less than 15. Talk screen was negative. Hep panel showed AB and AB-. Hep C positive. Renal ultrasound this afternoon showed no hydronephrosis. No cortical thinning consistent with normal kidneys. Head CT on admission was negative. 09/09/2024 patient currently seen in telemetry. Today he seems to be more alert and awake. Last night hospitalist team called-patient complaining of abdominal pain and shortness of breath. Chest x-ray showed dilated bowel loops. Recommended KUB which showed ileus-NG tube was inserted overnight. Patient currently seems to be feeling little bit better. Denies any abdominal pain. Hemoglobin 9, platelets 109, WBC 11, sodium 137, potassium 3.4, BUN 44, creatinine 3.6, GFR 17, bilirubin significantly elevated to 19, AST 113, ALT 48, alk phos 155, albumin 2.1 urine sodium less than 15 urine output 225 mL/day Noted team started the patient on steroids. Patient has a decompensated liver cirrhosis. Hep C positive. Viral load pending. Dr. Hall on the case. Patient currently on albumin, midodrine, normal saline to rule out hepatorenal syndrome. Will continue the same for another 24 hours. If no improvement then HRS 1 diagnosis will be made 09/10/2024 patient currently seen in telemetry. He is having breakfast. Denies any chest pain, shortness of breath. More alert and awake. Made 500 mL urine last night. Blood sugar 109. Blood pressure 100/53, heart rate 69. WBC 12.3, hemoglobin 8.2, platelets 94. Sodium 137, potassium 3.4, bicarbonate 18.8, BUN 56, creatinine 3.9, glucose 133, calcium 9.1, phosphorus 5.1, magnesium 2.6, total bilirubin 20.9, AST 53, ALT 43, alk phos 133, albumin 2.4. He is currently on midodrine, normal saline at 125 mL/h, albumin 3 times daily, rifaximin. 09/16/2024 Patient currently seen in telemetry. This morning he seems to be slow in response. Significant jaundice noted. Creatinine improved to 3.1. Urine output overnight more than [address] Coulter-will do gentle IV fluids. Patient not taking his lactulose. Dr. Coulter planning to place a rectal tube with the lactulose pr. 09/18/2024 patient currently seen in ICU. Currently on pressors. Urine output started to decrease. Patient currently on ventilator. Labs, medications reviewed. ICU team placed Vas-Cath. Family requesting all aggressive measures including dialysis despite explaining poor prognosis and not a candidate for outpatient dialysis. Dialysis ordered today. Patient on dialysis. 09/19/2024 patient currently seen in ICU. Unable to tolerate dialysis yesterday due to bradycardia and hypotension. Unfortunately is not a candidate for dialysis and cannot proceed with further dialysis sessions. Remains on ventilator. ICU team planning to have a family meeting-patient might need comfort care. Seems like going towards multisystem organ failure (encephalopathy, respiratory failure, liver failure, kidney failure, coagulopathy, GI bleed). Prognosis remains grim. Currently he is DNR. 09/20/2024 Patient is seen and examined at bedside in the ICU Patient medical condition still remained the same and no acute overnight events Patient noted to have drop in hemoglobin and platelets, received 1 pack PRBC and 1 platelet transfusion yesterday Vitals are stable as of now on vasopressor and mechanical ventilator support Physical examination showed anasarca and icterus Labs showed Hb 7.9, platelets 22, potassium 3.1, sodium 144, BUN 68, creatinine 3.5, total bilirubin 27.3, ammonia 135 Recommended to increase the albumin dose infusions As patient is still hemodynamically unstable, not a candidate for hemodialysis still cannot proceed with dialysis sessions despite worsening renal functions Prognosis still remains poor in view of acute liver failure, kidney failure, respiratory failure. 09/21/2024 patient currently seen in ICU. Unable to tolerate dialysis yesterday due to bradycardia and hypotension. Unfortunately is not a candidate for dialysis and cannot proceed with further dialysis sessions. Remains on ventilator. ICU team spoke to family and they are leaning towards comfort care. Patient currently in multisystem organ failure (encephalopathy, respiratory failure, liver failure, kidney failure, coagulopathy, GI bleed). Prognosis remains grim. Currently he is DNR. Comfort care seems to be appropriate. Noted family planning to possible withdrawal on Sunday ([place] Sunday) 09/22/2024 Patient is seen and examined at the bedside in ICU No acute overnight events. His medical condition still remained the same Vitals are stable on phenylephrine, vasopressin, noradrenaline drips. Physical examination showed anasarca Labs showed Hb 7, platelets 22, sodium 148, chloride 113, BUN 60, creatinine 3, total bilirubin 29.7 Renal functions seem to improve, as the patient is having hyponatremia and fluid overloaded, recommended water flushes through NG tube As patient's condition still remains unstable, patient is not a good candidate for dialysis and will continue current management. Exam Vital Signs Temp Pulse Resp BP Pulse Ox O2 Del Method O2 Flow Rate 98.0 F 78 10 L 114/62 96 Mechanical Ventilation 3 09/22/24 07:00 09/22/24 14:35 09/22/24 01:00 09/22/24 11:04 09/22/24 14:35 09/22/24 04:00 09/16/24 12:00 FiO2 40 09/22/24 14:35 Narrative Exam General: On mechanical ventilator. Icterus noted HEENT: Normocephalic, atraumatic, mucous membranes moist. Heart: Regular rate and rhythm, no murmurs. Lungs: Clear to auscultation with no wheezing or crackles. Abdomen: Soft, distended, nontender, positive bowel sounds. ?No guarding or rebound tenderness. Neurologic: On mechanical ventilator, sedated Extremities: Bilateral pitting 4+ pedal edema extending into scrotum and lower abdomen Skin: No rash or ecchymoses. Objective Labs 09/23/24 04:30 09/22/24 05:31 Labs: Laboratory Results - last 24 hr 09/14/24 09/22/24 09/22/24 05:28 05:31 10:20 WBC 12.0 H RBC 2.17 L Hgb 7.0 L Hct 21.4 L* MCV 99 MCH 32.3 MCHC 32.7 RDW Std Deviation 74.6 H Plt Count 22 L* Neut % (Auto) 76 Lymph % (Auto) 10 [place] % (Auto) 10 Eos % (Auto) 4 Baso % (Auto) 0 Neut # (Auto) 9.1 H Lymph # (Auto) 1.2 [place] # (Auto) 1.1 H Eos # (Auto) 0.5 Baso # (Auto) 0.0 Immature Gran # (Auto) 0.12 H Absolute Nucleated RBC 0.03 H Immature Gran % 1 H Nucleated RBC % 0 PT > 63.0 H* D INR APTT 112.2 H* D Fibrinogen 50 L* Sodium 148 H Potassium 3.4 Chloride 113 H Carbon Dioxide 24.2 Anion Gap 11 BUN 60 H Creatinine 3.0 H D Estim Creat Clear Calc 24.2 L eGFR 21 L BUN/Creatinine Ratio 20 Glucose 72 L Calculated Osmolality 310 H Lactic Acid 1.7 Calcium 9.4 Corrected Calcium 9.9 Total Bilirubin 29.7 H* D AST 61 H ALT 32 Alkaline Phosphatase 110 Ammonia 226 H* Total Protein 6.2 Albumin 3.4 Globulin 2.8 Albumin/Globulin Ratio 1.2 Total Cortisol 7.3 Misc Test Result Platelets confirmed ABG Interpretation ABG results: 08/28/24 08/29/24 09/03/24 22:40 10:05 15:24 ABG pH 7.41 7.50 H ABG pCO2 29 L 33 ABG pO2 69 L 63 L ABG HCO3 18 L 25 ABG O2 Saturation 94 94 ABG Base Excess -6 L 2 VBG pH 7.41 VBG pCO2 47 VBG pO2 30 VBG Base Excess 4 H 09/16/24 09/16/24 09/17/24 10:57 15:20 05:09 ABG pH 7.27 L 7.34 L 7.29 L ABG pCO2 48 40 46 ABG pO2 88 240 H D 64 L D ABG HCO3 22 21 22 ABG O2 Saturation 96 101 H 89 L ABG Base Excess -5 L -4 L -5 L VBG pH VBG pCO2 VBG pO2 VBG Base Excess 09/17/24 18:49 ABG pH 7.33 L ABG pCO2 41 ABG pO2 71 L ABG HCO3 22 ABG O2 Saturation 93 ABG Base Excess -4 L VBG pH VBG pCO2 VBG pO2 VBG Base Excess Quality Measures Quality Measures none Advance care planning discussed with:: other Assessment & Plan Assessment Current Active Medications: Generic Name Dose Route Start Last Admin Trade Name Freq PRN Reason Stop Dose Admin Albuterol/Ipratropium 3 ml 08/28/24 20:24 09/12/24 19:57 Albuterol/Ipratropium (Duoneb) Rt Janessa 3 Ml Nebu INH 09/27/24 22:59 3 ml Q4HRRT PRN Administration Wheeze Atropine Sulfate 0.5 mg 09/18/24 10:10 Atropine Sulf Inj 0.1 Mg/Ml Syr 10 Ml IVP 10/18/24 10:09 Q3MIN PRN BRADYCARDIA (HR<50) Citric Acid/Sodium Citrate 30 ml 09/16/24 16:00 09/22/24 09:31 Citric Acid/Sodium Citr 15 Ml Udc (Bicitra) NG 10/16/24 15:59 30 ml DAILY JERSON Administration Dextrose 25 ml 09/15/24 06:05 09/22/24 16:06 Dextrose 50%-Water Inj 50 Ml Syringe IV 10/15/24 06:04 25 ml Q15MIN PRN Administration BG 50-70 responsive npo pt Dextrose 50 ml 09/15/24 06:05 09/21/24 10:48 Dextrose 50%-Water Inj 50 Ml Syringe IV 10/15/24 06:04 50 ml Q15MIN PRN Administration BG <50 OR BG <70 & pt unresponsive Folic Acid 1 mg 09/17/24 09:00 09/22/24 09:31 Folic Acid 1 Mg Tablet NG 10/17/24 08:59 1 mg QDAY JERSON Administration Furosemide 40 mg 09/22/24 11:00 09/22/24 11:04 Furosemide Inj 10 Mg/Ml 4ml Vial IVP 10/22/24 10:59 40 mg QDAY JERSON Administration Glucagon 1 mg 09/15/24 06:05 Glucagon Inj 1 Mg Vial IM Q15MIN PRN BG <70, and no IV access Heparin Sodium (Porcine) 2,600 unit 09/18/24 09:00 09/18/24 10:43 Heparin Sod Inj 1000 Unit/Ml Vial 10 Ml INDWELLCAT 10/02/24 08:59 2,600 unit PRN PRN Administration DIALYSIS Propofol 1,000 mg in 100 mls @ 2.685 mls/hr 09/16/24 13:43 09/20/24 09:10 Diprivan Ivpb IV 10/16/24 13:42 0 mcg/kg/min .Q24H PRN 0 mls/hr PER PROTOCOL Titration Protocol 5 MCG/KG/MIN Vasopressin/Sodium Chloride 20 unit in 100 mls @ 9 mls/hr 09/16/24 16:43 09/22/24 09:31 Vasostrict/Ns Ivpb IV 10/16/24 16:42 0.03 unit/min .Q11H7M PRN 9 mls/hr PER PROTOCOL Administration Protocol 0.03 UNIT/MIN Phenylephrine HCl 40 mg/ 100 mls @ 7.058 mls/hr 09/18/24 10:12 09/18/24 22:00 Sodium Chloride IV 10/18/24 10:11 0 mcg/kg/min .[id number] PRN 0 mls/hr Per Sepsis Protocol Titration Protocol 0.5 MCG/KG/MIN Norepinephrine Bitartrate 16 mg in 250 mls @ 4.411 mls/hr 09/18/24 15:47 09/22/24 15:00 Levophed In Ns 16mg/250ml IV 10/18/24 15:46 0.25 mcg/kg/min .Q24H PRN 22.055 mls/hr PER PROTOCOL Titration Protocol 0.05 MCG/KG/MIN Albumin Human 25 gm in 100 mls @ 100 mls/hr 09/20/24 14:00 09/22/24 15:47 Albuminar-25 Ivpb IV 09/23/24 13:59 100 mls/hr TID JERSON Administration Dextrose 500 mls @ 15 mls/hr 09/21/24 17:45 09/21/24 17:44 D10w IV 09/23/24 17:44 15 mls/hr .Q24H JERSON Administration Lactulose 30 gm 09/16/24 20:08 09/22/24 11:05 Lactulose Syrup 20 Gm/30 Ml Udc NG 10/16/24 18:59 30 gm QID JERSON Administration Protocol Propranolol HCl 10 mg 09/16/24 21:00 Propranolol 10 Mg Tablet NG 10/16/24 20:59 BID JERSON Rifaximin 550 mg 09/16/24 21:00 09/22/24 09:31 Rifaximin 550 Mg Tablet NG 09/23/24 20:59 550 mg BID JERSON Administration Sevelamer Carbonate 0.8 gm 09/17/24 08:00 09/18/24 08:50 Sevelamer Carbonate 0.8 Gm Packet (Non-Formulary) NG 10/17/24 07:59 Not Given TIDWM JERSON Protocol Sodium Chloride 5 ml 08/28/24 17:29 08/28/24 18:47 Sodium Chloride Rt Janessa 0.9% 3 Ml Nebu INH 09/27/24 17:28 3 ml PRN PRN Administration SOLN Thiamine HCl 100 mg 09/17/24 09:00 09/22/24 09:31 Thiamine 100 Mg Tablet NG 10/17/24 08:59 100 mg QDAY JERSON Administration Plan Mr. Stack is a 74-year-old male with past medical history of liver cirrhosis secondary to alcohol use disorder, esophageal varices, ?Asthma/COPD, GERD, anxiety and BPH presented to [facility] on 08/28/2024 with a chief complaint of altered mental status and admitted for multisystem organ failure. #Acute renal failure (ARF) More likely Hepatorenal syndrome in the setting of cirrhosis vs prerenal # Acute decompensated liver cirrhosis -Patient had history of alcoholic liver cirrhosis and esophageal varices -At the time of admission, creatinine is 0.8 and during the hospital course continued to uptrend with decreased urine output -In view of worsening renal functions, Vas-Cath was placed by ICU team on 09/19/2024 and after having conversation with the family, patient was started on dialysis but he could not tolerate due to bradycardia and hypotension and dialysis was discontinued as it made him hemodynamically more unstable. -As of 09/20/2024 Creatinine is 3.5, BUN is 68, phosphorus 4.8, bicarb 22.4, anion gap 12, potassium 3.1, total bilirubin is 27.3, INR 2.4, fibrinogen 77, AST 72, ALT 45, ammonia 135, albumin 2.6 Plan -Recommended to continue albumin infusions -Cannot offer any further dialysis session for now in view of patient's medical condition -Recommended to continue vasopressors, lactulose, other needed medications as needed for acute decompensated liver failure -Continue blood and blood product transfusions as needed -Replace electrolytes as needed and continue to monitor renal functions -Avoid nephrotoxic medications and renally dose medications -Monitor urine output -ICU team planning to discuss with family regarding the comfort care as prognosis remains very poor in the setting of multisystem organ failure # Hypernatremia -Sodium as of 09/22/2024 is 148 Likely due to multiple infusions Plan -Free water deficit calculated for desired sodium of 145 is 1.2 L -Recommended to give water flushes through NG tube during 24 hours as patient is currently fluid overloaded -Monitor sodium # Hypokalemia, resolved Likely due to losses from bowel movements due to lactulose -Potassium as of 09/22/2024 is 3.4 -Monitor potassium and replete as needed #Acute encephalopathy, likely hepatic/metabolic #Shock, hypovolemic due to third spacing in setting of cirrhosis vs distributive (septic), resolved #Bradycardia, in setting of propofol #Acute respiratory failure requiring intubation #Aspiration pneumonia, resolved #History of COPD #Acute blood loss anemia secondary to GI bleed, resolved #Esophageal varices, resolved #Acute on chronic liver failure with coagulopathy and thrombocytopenia #Portal hypertension with esophageal varices, hypertensive portal gastropathy and ascites #Hyperbilirubinemia #Respiratory acidosis #Acute blood loss anemia, stable #Subclinical hypothyroidism #? Spontaneous bacterial peritonitis Rest of the medical conditions to be treated as per primary team Thank you for allowing us to participate in the care of the patient Patient plan of care was discussed with the attending physician, Dr. Marcela Hatch, PGY1 Attending Provider Attestation/Addendum Patient seen and examined with resident physician Dr. Tobias. Note reviewed, agree with findings and recommendations. Currently remains on ventilator with multiple system organ failure. Prognosis very grim. Not a dialysis candidate as patient hemodynamically unstable and not able to tolerate dialysis. Patient family considering comfort care probably on Sunday. In the interim continue with free water flushes for hypernatremia.
[2024-09-22] MEDS: Norepinephrine/NS 16mg/250ml 16 MG/250 ML BAG 22.055 MG IV (21:00)
[2024-09-23] VITALS (185 sets, daily range): BP systolic 80–152; BP diastolic 43–94; PULSE 74–109; RESP 4–17; TEMP 36.4–36.7; O2SAT 86–99
[2024-09-23 05:19] LABS: Basophils % (Auto) 0 % (0-2.5); Eosinophils # (Auto) 0.2 Thou/mm3 (0.0-0.5); Eosinophils % (Auto) 2 % (0-10); Immature Granulocytes % (Auto) 1 % (0-0); Immature Granulocytes Auto 0.14 Thou/mm3 (0.00-0.00); Lymphocytes # (Auto) 0.9 Thou/mm3 (1.0-4.8); Lymphocytes % (Auto) 7 % (10-50); Mean Corpuscular HGB Conc 33.1 g/dl (31.0-37.0); Mean Corpuscular Hemoglobin 32.3 pg (25.0-35.0); Mean Corpuscular Volume 97 fL (80-100); Monocytes # (Auto) 0.8 Thou/mm3 (0.0-0.8); Monocytes % (Auto) 6 % (0-12); Neutrophils # (Auto) 11.5 Thou/mm3 (1.8-7.7); Neutrophils % (Auto) 85 % (37-80); Nucleated Red Blood Cell # 0.04 Thou/mm3 (0.00-0.00); Nucleated Red Blood Cell % 0 /100 WBC (0); RDW Standard Deviation 71.2 fL (35.1-43.9); White Blood Count 13.6 Thou/mm3 (3.8-10.6)
[2024-09-23] MEDS: ALBUMIN HUMAN 25% IVPB 25 GM/100 ML BTL IV (05:22)
[2024-09-23] MEDS: VASOPRESSIN IN NS IVPB 20 UNIT/100 ML BAG 9 UNIT IV ×2 (05:22→18:09)
[2024-09-23] MEDS: LACTULOSE SYRUP 20 GM/30 ML UDC 30 GM NG ×4 (05:22→20:08)
[2024-09-23 05:52] LABS: Red Blood Count 1.86 Miln/mm3 (4.50-5.90)
[2024-09-23 05:53] LABS: Hematocrit 18.1 % (41.0-53.0); Platelet Count 22 Thou/mm3 (140-440)
[2024-09-23] MEDS: DEXTROSE 10%-WATER 500 ML 15 ML IV (06:00)
[2024-09-23 06:11] LABS: Alanine Aminotransferase 26 U/L (10-49); Albumin, Serum 3.7 gm/dL (3.4-4.8); Albumin/Globulin Ratio 1.4 (1.2-2.2); Alkaline Phosphatase 104 U/L (46-116); Anion Gap 12 (7-16); Aspartate Amino Transferase 58 U/L (0-34); BUN/Creatinine Ratio 18 Ratio (12-20); Blood Urea Nitrogen 57 mg/dL (9-23); Calcium (Corrected) 10.2 mg/dL (8.5-10.1); Carbon Dioxide 26.6 mMol/L (20.0-31.0); Chloride 112 mMol/L (98-107); Creatinine (Component) 3.1 mg/dL (0.6-1.3); Estimated Creatinine Clearance 23.4 mL/min (>60); Globulin 2.7 gm/dL (2.3-3.5); Glucose 107 mg/dL (74-106); Osmolality,Calculated 315 (275-295); Potassium 3.1 mMol/L (3.4-5.1); Sodium 151 mMol/L (136-145); Total Protein 6.4 gm/dL (5.7-8.2); eGFR 20 See Note
[2024-09-23 06:21] LABS: Bilirubin,Total 29.6 mg/dL (0.3-1.2)
[2024-09-23 06:22] LABS: Slide Review Platelets confirmed
[2024-09-23] MEDS: Norepinephrine/NS 16mg/250ml 16 MG/250 ML BAG 20.29 MG IV ×2 (06:30→18:50)
[2024-09-23] MEDS: POTASSIUM CHL 20 mEq IVPB 20 MEQ/100 ML BAG 50 MEQ IV (07:19)
--- NOTE | 2024-09-23 07:51 | PD.RESPRO ---
Documentation for date of: 09/23/24 Subjective Subjective Interval history: Morning labs significant for Hb 6, Plt 22. RBC and Plts ordered. Clinical status has remained unchanged, weaned completely off of fentanyl. Exam Vital Signs Temp Pulse Resp BP Pulse Ox O2 Del Method O2 Flow Rate 97.8 F 90 12 133/80 H 92 L Mechanical Ventilation 3 09/23/24 01:22 09/23/24 06:30 09/23/24 06:28 09/23/24 06:30 09/23/24 06:28 09/23/24 01:15 09/16/24 12:00 FiO2 60 09/23/24 06:28 Narrative Exam GENERAL: Intubated and mechanically ventilated, off sedation NEURO: GCS-3, sluggish pupillary reflexes HEENT: Dey mucosa. Eyes open, symmetrical, icteric CARDIO: No chest pain on palpation. Heart RRR, no obvious murmurs PULM: Decreased breath sounds on the right GI: Abdomen firm, mildly distended s/p paracentesis, rectal tube in-situ URO/PARTNER INTEGRATION PLANNER:: No further abnormalities noted. Garcia catheter in-situ SKIN/MSK/EXT: Icteric skin, bilateral pitting edema Objective Labs 09/24/24 09:06 09/24/24 04:44 Labs: Laboratory Results - last 24 hr 09/22/24 09/22/24 09/23/24 10:20 14:17 04:30 WBC 13.6 H RBC 1.86 L* Hgb 6.0 L* Hct 18.1 L* MCV 97 MCH 32.3 MCHC 33.1 RDW Std Deviation 71.2 H Plt Count 22 L* Neut % (Auto) 85 H Lymph % (Auto) 7 L Stewart % (Auto) 6 Eos % (Auto) 2 Baso % (Auto) 0 Neut # (Auto) 11.5 H Lymph # (Auto) 0.9 L Stewart # (Auto) 0.8 Eos # (Auto) 0.2 Baso # (Auto) 0.0 Immature Gran # (Auto) 0.14 H Absolute Nucleated RBC 0.04 H Immature Gran % 1 H Nucleated RBC % 0 PT > 63.0 H* D INR APTT 112.2 H* D Fibrinogen 50 L* Sodium 151 H Potassium 3.1 L Chloride 112 H Carbon Dioxide 26.6 Anion Gap 12 BUN 57 H Creatinine 3.1 H Estim Creat Clear Calc 23.4 L eGFR 20 L BUN/Creatinine Ratio 18 Glucose 107 H Calculated Osmolality 315 H Lactic Acid 1.7 Calcium 10.0 Corrected Calcium 10.2 H Total Bilirubin 29.6 H* AST 58 H ALT 26 Alkaline Phosphatase 104 Total Protein 6.4 Albumin 3.7 Globulin 2.7 Albumin/Globulin Ratio 1.4 Misc Test Result Platelets confirmed Crossmatch See Detail Blood Bank Comment PLATP Ready ABG Interpretation ABG results: 08/28/24 08/29/24 09/03/24 22:40 10:05 15:24 ABG pH 7.41 7.50 H ABG pCO2 29 L 33 ABG pO2 69 L 63 L ABG HCO3 18 L 25 ABG O2 Saturation 94 94 ABG Base Excess -6 L 2 VBG pH 7.41 VBG pCO2 47 VBG pO2 30 VBG Base Excess 4 H 09/16/24 09/16/24 09/17/24 10:57 15:20 05:09 ABG pH 7.27 L 7.34 L 7.29 L ABG pCO2 48 40 46 ABG pO2 88 240 H D 64 L D ABG HCO3 22 21 22 ABG O2 Saturation 96 101 H 89 L ABG Base Excess -5 L -4 L -5 L VBG pH VBG pCO2 VBG pO2 VBG Base Excess 09/17/24 18:49 ABG pH 7.33 L ABG pCO2 41 ABG pO2 71 L ABG HCO3 22 ABG O2 Saturation 93 ABG Base Excess -4 L VBG pH VBG pCO2 VBG pO2 VBG Base Excess Quality Measures Quality Measures none Advance care planning discussed with:: other Assessment & Plan Assessment Current Active Medications: Generic Name Dose Route Start Last Admin Trade Name Freq PRN Reason Stop Dose Admin Albuterol/Ipratropium 3 ml 08/28/24 20:24 09/12/24 19:57 Albuterol/Ipratropium (Duoneb) Rt Janessa 3 Ml Nebu INH 09/27/24 22:59 3 ml Q4HRRT PRN Administration Wheeze Atropine Sulfate 0.5 mg 09/18/24 10:10 Atropine Sulf Inj 0.1 Mg/Ml Syr 10 Ml IVP 10/18/24 10:09 Q3MIN PRN BRADYCARDIA (HR<50) Citric Acid/Sodium Citrate 30 ml 09/16/24 16:00 09/22/24 09:31 Citric Acid/Sodium Citr 15 Ml Udc (Bicitra) NG 10/16/24 15:59 30 ml DAILY JERSON Administration Dextrose 25 ml 09/15/24 06:05 09/22/24 16:06 Dextrose 50%-Water Inj 50 Ml Syringe IV 10/15/24 06:04 25 ml Q15MIN PRN Administration BG 50-70 responsive npo pt Dextrose 50 ml 09/15/24 06:05 09/21/24 10:48 Dextrose 50%-Water Inj 50 Ml Syringe IV 10/15/24 06:04 50 ml Q15MIN PRN Administration BG <50 OR BG <70 & pt unresponsive Folic Acid 1 mg 09/17/24 09:00 09/22/24 09:31 Folic Acid 1 Mg Tablet NG 10/17/24 08:59 1 mg QDAY JERSON Administration Furosemide 40 mg 09/22/24 11:00 09/22/24 11:04 Furosemide Inj 10 Mg/Ml 4ml Vial IVP 10/22/24 10:59 40 mg QDAY JERSON Administration Glucagon 1 mg 09/15/24 06:05 Glucagon Inj 1 Mg Vial IM Q15MIN PRN BG <70, and no IV access Heparin Sodium (Porcine) 2,600 unit 09/18/24 09:00 09/18/24 10:43 Heparin Sod Inj 1000 Unit/Ml Vial 10 Ml INDWELLCAT 10/02/24 08:59 2,600 unit PRN PRN Administration DIALYSIS Propofol 1,000 mg in 100 mls @ 2.685 mls/hr 09/16/24 13:43 09/20/24 09:10 Diprivan Ivpb IV 10/16/24 13:42 0 mcg/kg/min .Q24H PRN 0 mls/hr PER PROTOCOL Titration Protocol 5 MCG/KG/MIN Vasopressin/Sodium Chloride 20 unit in 100 mls @ 9 mls/hr 09/16/24 16:43 09/23/24 05:22 Vasostrict/Ns Ivpb IV 10/16/24 16:42 0.03 unit/min .Q11H7M PRN 9 mls/hr PER PROTOCOL Administration Protocol 0.03 UNIT/MIN Phenylephrine HCl 40 mg/ 100 mls @ 7.058 mls/hr 09/18/24 10:12 09/18/24 22:00 Sodium Chloride IV 10/18/24 10:11 0 mcg/kg/min .[id number] PRN 0 mls/hr Per Sepsis Protocol Titration Protocol 0.5 MCG/KG/MIN Norepinephrine Bitartrate 16 mg in 250 mls @ 4.411 mls/hr 09/18/24 15:47 09/23/24 07:00 Levophed In Ns 16mg/250ml IV 10/18/24 15:46 0.23 mcg/kg/min .Q24H PRN 20.29 mls/hr PER PROTOCOL Titration Protocol 0.05 MCG/KG/MIN Albumin Human 25 gm in 100 mls @ 100 mls/hr 09/20/24 14:00 09/23/24 05:22 Albuminar-25 Ivpb IV 09/23/24 13:59 100 mls/hr TID JERSON Administration Dextrose 500 mls @ 15 mls/hr 09/21/24 17:45 09/23/24 06:00 D10w IV 09/23/24 17:44 15 mls/hr .Q24H JERSON Administration Potassium Chloride 20 meq in 100 mls @ 50 mls/hr 09/23/24 07:09 09/23/24 07:19 Kcl Ivpb IV 09/23/24 09:08 50 mls/hr X1 ONE Administration Lactulose 30 gm 09/16/24 20:08 09/23/24 05:22 Lactulose Syrup 20 Gm/30 Ml Udc NG 10/16/24 18:59 30 gm QID JERSON Administration Protocol Propranolol HCl 10 mg 09/16/24 21:00 Propranolol 10 Mg Tablet NG 10/16/24 20:59 BID JERSON Rifaximin 550 mg 09/16/24 21:00 09/22/24 21:13 Rifaximin 550 Mg Tablet NG 09/23/24 20:59 550 mg BID JERSON Administration Sevelamer Carbonate 0.8 gm 09/17/24 08:00 09/18/24 08:50 Sevelamer Carbonate 0.8 Gm Packet (Non-Formulary) NG 10/17/24 07:59 Not Given TIDWM JERSON Protocol Sodium Chloride 5 ml 08/28/24 17:29 08/28/24 18:47 Sodium Chloride Rt Janessa 0.9% 3 Ml Nebu INH 09/27/24 17:28 3 ml PRN PRN Administration SOLN Thiamine HCl 100 mg 09/17/24 09:00 09/22/24 09:31 Thiamine 100 Mg Tablet NG 10/17/24 08:59 100 mg QDAY JERSON Administration Plan Summary: Abdifatah Stack is a 74-year-old male with past medical history of HCV, alcoholic cirrhosis, esophageal varices, GERD, anxiety, and BPH who presented on 08/28 with AMS after being found by caregiver in [place] puddle of dark-colored blood. During hospital course, received EGD on 09/01 which showed grade 1 varices (not large enough for band ligation), hemorrhagic gastritis, and hypertensive portal gastropathy with mucosal oozing as source of bleeding. Over past couple of days, noted to become more encephalopathic and developed worsening respiratory failure and required intubation and subsequently upgraded to ICU on 09/16. Neurological #Acute encephalopathy, likely hepatic/metabolic Baseline, conversational and oriented x 3. On admission, encephalopathic and A&O x 0 that improved throughout hospitalization. However, throughout last couple of days was noted to become more encephalopathic. Repeat CT head on 09/16: Negative for acute hemorrhage, mass effect, or midline shift Plan: - Reglan to improve motility ? Lactulose 30 g 4 times daily ? Rifaximin 550 mg twice daily ? Aspiration precautions, head of bed elevation Cardiovascular #Shock, hypovolemic due to third spacing in setting of cirrhosis vs distributive (septic), resolved History of cirrhosis with prominent ascites seen on CT A/P on 09/16. Pulmonary #Acute respiratory failure 2/2 acute encephalopathy ? Vent settings: VT 550, RR 15, PEEP 5, FiO2 35% #History of COPD Home medication Trelegy inhaler ? DuoNebs as needed Gastrointestinal #Acute blood loss anemia secondary to GI bleed #Esophageal varices, resolved Found unconscious in a pool of coffee-ground emesis - Will continue to monitor H&H - Transfuse for Hb <7 #Acute on chronic liver failure with coagulopathy and thrombocytopenia #Portal hypertension with esophageal varices, hypertensive portal gastropathy and ascites #Hyperbilirubinemia CMV IgG positive, IgM negative. EBV IgG positive, IgM negative. HAV negative, HBV antigen nonreactive. HCV antibody reactive, RNA negative. HSV I/II IgG positive, HIV negative. EGD: diffuse hypertensive portal gastropathy with mucosal oozing of blood and 1+ esophageal varices not large enough for band ligation. Abdominal US on 09/11: gallbladder sludge, gallbladder wall thickened 0.5 cm, cirrhosis and mild ascites. Meld?NA score 38 points -> 65-66% 90-day mortality Child?Hernandez class C, 12 points -> life expectancy 1-3 years, abdominal surgery mortality 82% Madrey score 42 -> may benefit from steroids Completed N-acetylcysteine IV daily on 09/13 for acute on chronic liver failure Completed 3 days of Phytonadione 10 mg SC daily ffrom 09/10-09/13 ? Status post paracentesis on 09/18 with removal of 550 cc straw-colored fluid ? SAAG of 1.4, which is > 1.1 and highly suggestive of portal hypertension ? 1 WBC in peritoneal fluid -> no SBP Renal Hypernatremia Sodium today- 151. Plan: -Free water flushes starting at 25ccs/hr #Respiratory acidosis-resolved #Non anion gap metabolic acidosis -resolved Grunting and responsive to pain only. Had 1 bowel movements in the past 48 hours. ? Lactulose and rifaxamin as above ? Aspiration precautions, head of bed elevation ? Continue Bicitra #Acute kidney injury, likely prerenal in setting of cirrhosis (hepatorenal syndrome) Baseline Cr 0.5 Urine creatinine 216, urine random protein 100, urine sodium <15, urine potassium 50, urine chloride <20 Renal US 09/08: no hydronephrosis, no significant cortical thinning Underwent dialysis on 09/18 but patient did not tolerate and will likely not be able to tolerate moving forward. Urine output about 1.04L total yesterday. - IV Lasix 40mg Qday ? Albumin ? Nephrology consulted, appreciate recommendations ? Renally dose medications and avoid nephrotoxic agents Heme/Onc #Acute blood loss anemia #Thrombocytopenia #Possible DIC Platelet count today- 22. Repeat coag panel: PT greater than 63, APTT 112.2, fibrinogen 15 Plan: -Continue monitor hemoglobin -Consider transfusing hemoglobin drops less than 7 Endocrine #Subclinical hypothyroidism TSH 0.39, T4 0.84 Likely normal based on patient age Infectious disease #? Spontaneous bacterial peritonitis, ruled out WBC uptrending, though no fevers. Freddy Flaherty. Hospital management: Disposition: critically ill in ICU Fluids: none Diet: NPO Lines: PIV, temp dialysis catheter, OG tube DVT prophylaxis: SCDs Garcia: placed CODE STATUS: DNR Case was discussed with Dr Alvarado PGY-3 and attending physician, Dr Heath Hay, PGY-4 Attending Provider Attestation/Addendum Patient seen and examined with resident, Choco Hay DO. I agree with the findings, assessment, and plan of care as documented except for differences below. We will continue all supportive care. Remains on appropriate prophylaxis. Transfuse to address coagulopathy and blood loss. Calcium given as well with blood products. Continue with octreotide, albumin, and maintenance of MAP goal to optimize for hepatorenal syndrome. Clinically no objective improvement. Plan on Sunday to transition to comfort measures likely. Family/ friends present and paying final visits/ prayers.No meaningful recovery of synthestic hepatic function now. Total critical care time: Personally spent 30 minutes for review of physiologic parameters, directed plan of care throughout the day, and counseling patients family at bedside. This is exclusive of time spent teaching housestaff or performing any separate billable procedures. Patient continues to require critical care services for acute respiratory failure and decompensated liver cirrhosis with hepatic encephalopathy. Patient remains at high risk for mortality and further morbidity warranting ongoing management and care will be available in the intensive care unit.
[2024-09-23] MEDS: CITRIC ACID/SODIUM CITR 15 ML UDC (BICITRA) 30 ML NG (10:02)
[2024-09-23] MEDS: FUROSEMIDE INJ 10 MG/ML 4ML VIAL 40 MG IVP (10:08)
[2024-09-23] MEDS: rifaximin 550 MG TABLET NG (10:08)
[2024-09-23] MEDS: FOLIC ACID 1 MG TABLET NG (10:08)
[2024-09-23] MEDS: THIAMINE 100 MG TABLET NG (10:08)
--- NOTE | 2024-09-23 13:32 | PC.SS ---
Update: Patient remains intubated. Patient is not sedated. OG tube in place for feeding. Patient receiving pressor support. Skin issue in scrotum region. Garcia catheter in place. Patient is not receiving dialysis.
--- NOTE | 2024-09-23 13:33 | PC.SS ---
Patient's point of contact to be transitioned back to sister, Maggy Romero. RESTAURANT GENERAL MANAGER updated bedside nurse and community health promoter.
--- NOTE | 2024-09-23 13:34 | PC.SS ---
SECURITY PATROL DRIVER informed by patient's sister, Maggy Romero; that bank issue has been resolved. Patient's sister contacted [employer] and was informed to submit patient's certificate upon expiration. At that point, [email or web address] will assist patient's sister with accessing funds.
[2024-09-23 14:48] LABS: Fibrinogen < 50 mg/dL (175-375)
[2024-09-23] MEDS: POLYETHYLENE GLYCOL 17 GM PACKET PO (16:28)
--- NOTE | 2024-09-23 17:15 | ESPR_ITS ---
Documentation for date of: 09/23/24 Subjective Subjective Interval history: Mr. Stack is a 74-year-old male with past medical history of liver cirrhosis secondary to alcohol use disorder, esophageal varices, ?Asthma/COPD, GERD, anxiety and BPH presented to [facility] [place], [place] on 08/28/2024 with a chief complaint of altered mental status. per EMS patient was found to be naked and altered. Noted to have dark blood all over the floor. During the hospital course patient had a GI bleed and was seen by Dr. Hall. Also noted to have metabolic encephalopathy-lactulose, rifaximin were initiated. For the last 24 hours his urine output has dropped significantly and renal consultation was requested. CT brain was negative. 09/08/2024 patient currently seen in telemetry.His current medications included folic acid, lactulose, Protonix, propranolol, rifaximin, thiamine.WBC 11.9, hemoglobin 9.5, platelets 131. Sodium 137, potassium 3.3, BUN 43, creatinine 2.9, calcium 9, phosphorus 3.9, total bilirubin 15.2, AST 132, ALT 53, albumin 1.7. Urine showed concentrated urine with blood and bilirubin. Urine sodium less than 15. Talk screen was negative. Hep panel showed AB and AB-. Hep C positive. Renal ultrasound this afternoon showed no hydronephrosis. No cortical thinning consistent with normal kidneys. Head CT on admission was negative. 09/09/2024 patient currently seen in telemetry. Today he seems to be more alert and awake. Last night hospitalist team called-patient complaining of abdominal pain and shortness of breath. Chest x-ray showed dilated bowel loops. Recommended KUB which showed ileus-NG tube was inserted overnight. Patient currently seems to be feeling little bit better. Denies any abdominal pain. Hemoglobin 9, platelets 109, WBC 11, sodium 137, potassium 3.4, BUN 44, creatinine 3.6, GFR 17, bilirubin significantly elevated to 19, AST 113, ALT 48, alk phos 155, albumin 2.1 urine sodium less than 15 urine output 225 mL/day Noted team started the patient on steroids. Patient has a decompensated liver cirrhosis. Hep C positive. Viral load pending. Dr. Hall on the case. Patient currently on albumin, midodrine, normal saline to rule out hepatorenal syndrome. Will continue the same for another 24 hours. If no improvement then HRS 1 diagnosis will be made 09/20/2024 Patient is seen and examined at bedside in the ICU Patient medical condition still remained the same and no acute overnight events Patient noted to have drop in hemoglobin and platelets, received 1 pack PRBC and 1 platelet transfusion yesterday Vitals are stable as of now on vasopressor and mechanical ventilator support Physical examination showed anasarca and icterus Labs showed Hb 7.9, platelets 22, potassium 3.1, sodium 144, BUN 68, creatinine 3.5, total bilirubin 27.3, ammonia 135 Recommended to increase the albumin dose infusions As patient is still hemodynamically unstable, not a candidate for hemodialysis still cannot proceed with dialysis sessions despite worsening renal functions Prognosis still remains poor in view of acute liver failure, kidney failure, respiratory failure. 09/21/2024 patient currently seen in ICU. Unable to tolerate dialysis yesterday due to bradycardia and hypotension. Unfortunately is not a candidate for dialysis and cannot proceed with further dialysis sessions. Remains on ventilator. ICU team spoke to family and they are leaning towards comfort care. Patient currently in multisystem organ failure (encephalopathy, respiratory failure, liver failure, kidney failure, coagulopathy, GI bleed). Prognosis remains grim. Currently he is DNR. Comfort care seems to be appropriate. Noted family planning to possible withdrawal on Sunday (Marco Sunday) 09/22/2024 Patient is seen and examined at the bedside in ICU No acute overnight events. His medical condition still remained the same Vitals are stable on phenylephrine, vasopressin, noradrenaline drips. Physical examination showed anasarca Labs showed Hb 7, platelets 22, sodium 148, chloride 113, BUN 60, creatinine 3, total bilirubin 29.7 Renal functions seem to improve, as the patient is having hyponatremia and fluid overloaded, recommended water flushes through NG tube As patient's condition still remains unstable, patient is not a good candidate for dialysis and will continue current management. 09/23/2024 Patient is seen and examined at the bedside in ICU No acute overnight events. His medical condition does not seem to improve Vitals are stable on vasopressin and norepinephrine drips. Physical examination showed diffuse icterus and anasarca Labs showed hemoglobin 6, platelets 22, fibrinogen<50, sodium 151, potassium 3.1, chloride 112, creatinine 3.1, BUN 57, total bilirubin 29.6 Patient is still producing adequate amount of urine despite worsened renal functions. Patient needs to receive dialysis, but based on his clinical condition patient is not a candidate for dialysis as of now Exam Vital Signs Temp Pulse Resp BP Pulse Ox O2 Del Method O2 Flow Rate 97.7 F 100 12 149/80 H 95 Mechanical Ventilation 3 09/23/24 16:00 09/23/24 16:05 09/23/24 14:19 09/23/24 16:05 09/23/24 16:05 09/23/24 01:15 09/16/24 12:00 FiO2 55 09/23/24 16:00 Narrative Exam GENERAL APPEARANCE patient currently seen in ICU. On vent. NECK: Neck supple, no JVD or bruit CARDIOVASCULAR: Heart regular, no murmurs LUNGS/CHEST: Few rhonchi noted bilaterally ABDOMEN: Distended with good bowel sounds. EXTREMITIES: 2+ edema noted in the extremities SKIN: Jaundiced. Patient bleeding from the dialysis catheter MUSCULOSKELETAL: In bed NEUROLOGICAL : Intubated, sedated Objective Labs 09/23/24 04:30 09/23/24 04:30 Labs: Laboratory Results - last 24 hr 09/22/24 09/23/24 14:17 04:30 WBC 13.6 H RBC 1.86 L* Hgb 6.0 L* Hct 18.1 L* MCV 97 MCH 32.3 MCHC 33.1 RDW Std Deviation 71.2 H Plt Count 22 L* Neut % (Auto) 85 H Lymph % (Auto) 7 L [place] % (Auto) 6 Eos % (Auto) 2 Baso % (Auto) 0 Neut # (Auto) 11.5 H Lymph # (Auto) 0.9 L [place] # (Auto) 0.8 Eos # (Auto) 0.2 Baso # (Auto) 0.0 Immature Gran # (Auto) 0.14 H Absolute Nucleated RBC 0.04 H Immature Gran % 1 H Nucleated RBC % 0 Fibrinogen < 50 L* Sodium 151 H Potassium 3.1 L Chloride 112 H Carbon Dioxide 26.6 Anion Gap 12 BUN 57 H Creatinine 3.1 H Estim Creat Clear Calc 23.4 L eGFR 20 L BUN/Creatinine Ratio 18 Glucose 107 H Calculated Osmolality 315 H Calcium 10.0 Corrected Calcium 10.2 H Total Bilirubin 29.6 H* AST 58 H ALT 26 Alkaline Phosphatase 104 Total Protein 6.4 Albumin 3.7 Globulin 2.7 Albumin/Globulin Ratio 1.4 Misc Test Result Platelets confirmed Blood Type O Positive Antibody Screen POSITIVE Antibody Identification Anti-E Crossmatch See Detail Blood Bank Wristband ID Yes Blood Bank Comment PLATP Ready ABG Interpretation ABG results: 08/28/24 08/29/24 09/03/24 22:40 10:05 15:24 ABG pH 7.41 7.50 H ABG pCO2 29 L 33 ABG pO2 69 L 63 L ABG HCO3 18 L 25 ABG O2 Saturation 94 94 ABG Base Excess -6 L 2 VBG pH 7.41 VBG pCO2 47 VBG pO2 30 VBG Base Excess 4 H 09/16/24 09/16/24 09/17/24 10:57 15:20 05:09 ABG pH 7.27 L 7.34 L 7.29 L ABG pCO2 48 40 46 ABG pO2 88 240 H D 64 L D ABG HCO3 22 21 22 ABG O2 Saturation 96 101 H 89 L ABG Base Excess -5 L -4 L -5 L VBG pH VBG pCO2 VBG pO2 VBG Base Excess 09/17/24 18:49 ABG pH 7.33 L ABG pCO2 41 ABG pO2 71 L ABG HCO3 22 ABG O2 Saturation 93 ABG Base Excess -4 L VBG pH VBG pCO2 VBG pO2 VBG Base Excess Quality Measures Quality Measures none Advance care planning discussed with:: other Assessment & Plan Assessment Current Active Medications: Generic Name Dose Route Start Last Admin Trade Name Freq PRN Reason Stop Dose Admin Albuterol/Ipratropium 3 ml 08/28/24 20:24 09/12/24 19:57 Albuterol/Ipratropium (Duoneb) Rt Janessa 3 Ml Nebu INH 09/27/24 22:59 3 ml Q4HRRT PRN Administration Wheeze Atropine Sulfate 0.5 mg 09/18/24 10:10 Atropine Sulf Inj 0.1 Mg/Ml Syr 10 Ml IVP 10/18/24 10:09 Q3MIN PRN BRADYCARDIA (HR<50) Citric Acid/Sodium Citrate 30 ml 09/16/24 16:00 09/23/24 10:02 Citric Acid/Sodium Citr 15 Ml Udc (Bicitra) NG 10/16/24 15:59 30 ml DAILY JERSON Administration Dextrose 25 ml 09/15/24 06:05 09/22/24 16:06 Dextrose 50%-Water Inj 50 Ml Syringe IV 10/15/24 06:04 25 ml Q15MIN PRN Administration BG 50-70 responsive npo pt Dextrose 50 ml 09/15/24 06:05 09/21/24 10:48 Dextrose 50%-Water Inj 50 Ml Syringe IV 10/15/24 06:04 50 ml Q15MIN PRN Administration BG <50 OR BG <70 & pt unresponsive Folic Acid 1 mg 09/17/24 09:00 09/23/24 10:08 Folic Acid 1 Mg Tablet NG 10/17/24 08:59 1 mg QDAY JERSON Administration Furosemide 40 mg 09/22/24 11:00 09/23/24 10:08 Furosemide Inj 10 Mg/Ml 4ml Vial IVP 10/22/24 10:59 40 mg QDAY JERSON Administration Glucagon 1 mg 09/15/24 06:05 Glucagon Inj 1 Mg Vial IM Q15MIN PRN BG <70, and no IV access Heparin Sodium (Porcine) 2,600 unit 09/18/24 09:00 09/18/24 10:43 Heparin Sod Inj 1000 Unit/Ml Vial 10 Ml INDWELLCAT 10/02/24 08:59 2,600 unit PRN PRN Administration DIALYSIS Propofol 1,000 mg in 100 mls @ 2.685 mls/hr 09/16/24 13:43 09/20/24 09:10 Diprivan Ivpb IV 10/16/24 13:42 0 mcg/kg/min .Q24H PRN 0 mls/hr PER PROTOCOL Titration Protocol 5 MCG/KG/MIN Vasopressin/Sodium Chloride 20 unit in 100 mls @ 9 mls/hr 09/16/24 16:43 09/23/24 05:22 Vasostrict/Ns Ivpb IV 10/16/24 16:42 0.03 unit/min .Q11H7M PRN 9 mls/hr PER PROTOCOL Administration Protocol 0.03 UNIT/MIN Phenylephrine HCl 40 mg/ 100 mls @ 7.058 mls/hr 09/18/24 10:12 09/18/24 22:00 Sodium Chloride IV 10/18/24 10:11 0 mcg/kg/min .[id number] PRN 0 mls/hr Per Sepsis Protocol Titration Protocol 0.5 MCG/KG/MIN Norepinephrine Bitartrate 16 mg in 250 mls @ 4.411 mls/hr 09/18/24 15:47 09/23/24 16:00 Levophed In Ns 16mg/250ml IV 10/18/24 15:46 0.23 mcg/kg/min .Q24H PRN 20.29 mls/hr PER PROTOCOL Titration Protocol 0.05 MCG/KG/MIN Lactulose 30 gm 09/16/24 20:08 09/23/24 16:28 Lactulose Syrup 20 Gm/30 Ml Udc NG 10/16/24 18:59 30 gm QID JERSON Administration Protocol Propranolol HCl 10 mg 09/16/24 21:00 Propranolol 10 Mg Tablet NG 10/16/24 20:59 BID JERSON Rifaximin 550 mg 09/16/24 21:00 09/23/24 10:08 Rifaximin 550 Mg Tablet NG 09/23/24 20:59 550 mg BID JERSON Administration Sevelamer Carbonate 0.8 gm 09/17/24 08:00 09/18/24 08:50 Sevelamer Carbonate 0.8 Gm Packet (Non-Formulary) NG 10/17/24 07:59 Not Given TIDWM JERSON Protocol Sodium Chloride 5 ml 08/28/24 17:29 08/28/24 18:47 Sodium Chloride Rt Janessa 0.9% 3 Ml Nebu INH 09/27/24 17:28 3 ml PRN PRN Administration SOLN Thiamine HCl 100 mg 09/17/24 09:00 09/23/24 10:08 Thiamine 100 Mg Tablet NG 10/17/24 08:59 100 mg QDAY JERSON Administration Plan Mr. Stack is a 74-year-old male with past medical history of liver cirrhosis secondary to alcohol use disorder, esophageal varices, ?Asthma/COPD, GERD, anxiety and BPH presented to [facility] on 08/28/2024 with a chief complaint of altered mental status and admitted for multisystem organ failure. #Acute renal failure (ARF) More likely Hepatorenal syndrome in the setting of cirrhosis vs prerenal # Acute decompensated liver cirrhosis -Patient had history of alcoholic liver cirrhosis and esophageal varices -At the time of admission, creatinine is 0.8 and during the hospital course continued to uptrend with decreased urine output -In view of worsening renal functions, Vas-Cath was placed by ICU team on 09/19/2024 and after having conversation with the family, patient was started on dialysis but he could not tolerate due to bradycardia and hypotension and dialysis was discontinued as it made him hemodynamically more unstable. -As of 09/23/2024 Creatinine is 3.1, BUN 57, osmolality 315, total bilirubin 29.6, albumin 3.7 Plan -Recommended to continue albumin infusions -Cannot offer any further dialysis session for now in view of patient's medical condition -Recommended to continue vasopressors, lactulose, other needed medications as needed for acute decompensated liver failure -Continue blood and blood product transfusions as needed -Replace electrolytes as needed and continue to monitor renal functions -Avoid nephrotoxic medications and renally dose medications -Monitor urine output -ICU team planning to discuss with family regarding the comfort care as prognosis remains very poor in the setting of multisystem organ failure # Hyperosmolar hyperchloremic hypernatremia -Sodium as of 09/22/2024 is 148 > 3/4, Na 151 Likely due to multiple infusions Plan -Free water deficit calculated for desired sodium of 145 is 1L -Recommended to give water flushes of 1L through NG tube during 24 hours as patient is currently fluid overloaded -Monitor sodium # Hypokalemia Likely due to decreased intake -Potassium as of 09/23/2024 is 3.1 Plan -Patient received 20 mEq of IV potassium -Monitor potassium and replete as needed # Acute anemia # Thrombocytopenia Likely multifactorial, combined cirrhosis, malnutrition, DIC, possible GI losses, repeated blood draws for testing -Patient received multiple blood transfusions and blood products Plan -Monitor CBC and replace blood losses as needed #Acute encephalopathy, likely hepatic/metabolic #Shock, hypovolemic due to third spacing in setting of cirrhosis vs distributive (septic), resolved #Bradycardia, in setting of propofol #Acute respiratory failure requiring intubation #Aspiration pneumonia, resolved #History of COPD #Acute blood loss anemia secondary to GI bleed, resolved #Esophageal varices, resolved #Acute on chronic liver failure with coagulopathy and thrombocytopenia #Portal hypertension with esophageal varices, hypertensive portal gastropathy and ascites #Hyperbilirubinemia #Respiratory acidosis #Acute blood loss anemia, stable #Subclinical hypothyroidism #? Spontaneous bacterial peritonitis Rest of the medical conditions to be treated as per primary team Thank you for allowing us to participate in the care of the patient Patient plan of care was discussed with the attending physician, Dr. Marcela Hatch, PGY1 Attending Provider Attestation/Addendum Patient seen and examined with resident physician Dr. Tobias. Note reviewed, agree with findings and recommendations. ICU team had a long conversation with family regarding poor prognosis. They agreed for comfort care. Currently DNR status. Wants to wait until Sunday for possible withdrawal. Patient not a liver transplant candidate. Despite dialysis outcomes seems dismal. Worsening liver failure. At this point cannot offer any further dialysis sessions. Patient currently in multisystem organ failure. Critical care time spent more than 35 minutes regarding plan of care and disease management. Plan of care discussed with Dr. Joe.
--- NOTE | 2024-09-23 21:31 | ESPR_ITS ---
Documentation for date of: 09/23/24 Subjective Subjective Interval history: Patient evaluated s Total bilirubin 29.6 AST ALT 58 and 26 he remains intubated And alkaline phos is 104 Hemoglobin hematocrit 6.0 and 18.1 and a platelet count of 22,000 Family has decided that from tomorrow morning he will be a comfort care which I believe is the right thing to do Exam Vital Signs Temp Pulse Resp BP Pulse Ox O2 Del Method O2 Flow Rate 98.0 F 102 H 13 104/64 98 Mechanical Ventilation 3 09/23/24 20:00 09/23/24 21:10 09/23/24 19:04 09/23/24 21:10 09/23/24 21:10 09/23/24 01:15 09/16/24 12:00 FiO2 100 09/23/24 19:04 Objective Labs 09/23/24 04:30 09/23/24 04:30 Labs: Laboratory Results - last 24 hr 09/22/24 09/23/24 14:17 04:30 WBC 13.6 H RBC 1.86 L* Hgb 6.0 L* Hct 18.1 L* MCV 97 MCH 32.3 MCHC 33.1 RDW Std Deviation 71.2 H Plt Count 22 L* Neut % (Auto) 85 H Lymph % (Auto) 7 L [place] % (Auto) 6 Eos % (Auto) 2 Baso % (Auto) 0 Neut # (Auto) 11.5 H Lymph # (Auto) 0.9 L [place] # (Auto) 0.8 Eos # (Auto) 0.2 Baso # (Auto) 0.0 Immature Gran # (Auto) 0.14 H Absolute Nucleated RBC 0.04 H Immature Gran % 1 H Nucleated RBC % 0 Fibrinogen < 50 L* Sodium 151 H Potassium 3.1 L Chloride 112 H Carbon Dioxide 26.6 Anion Gap 12 BUN 57 H Creatinine 3.1 H Estim Creat Clear Calc 23.4 L eGFR 20 L BUN/Creatinine Ratio 18 Glucose 107 H Calculated Osmolality 315 H Calcium 10.0 Corrected Calcium 10.2 H Total Bilirubin 29.6 H* AST 58 H ALT 26 Alkaline Phosphatase 104 Total Protein 6.4 Albumin 3.7 Globulin 2.7 Albumin/Globulin Ratio 1.4 Misc Test Result Platelets confirmed Blood Type O Positive Antibody Screen POSITIVE Antibody Identification Anti-E Crossmatch See Detail Blood Bank Wristband ID Yes Blood Bank Comment PLATP Ready Impressions Impression: End-stage liver disease End-stage renal disease Acute respiratory failure requiring mechanical ventilation Continue supportive care ABG Interpretation ABG results: 08/28/24 08/29/24 09/03/24 22:40 10:05 15:24 ABG pH 7.41 7.50 H ABG pCO2 29 L 33 ABG pO2 69 L 63 L ABG HCO3 18 L 25 ABG O2 Saturation 94 94 ABG Base Excess -6 L 2 VBG pH 7.41 VBG pCO2 47 VBG pO2 30 VBG Base Excess 4 H 09/16/24 09/16/24 09/17/24 10:57 15:20 05:09 ABG pH 7.27 L 7.34 L 7.29 L ABG pCO2 48 40 46 ABG pO2 88 240 H D 64 L D ABG HCO3 22 21 22 ABG O2 Saturation 96 101 H 89 L ABG Base Excess -5 L -4 L -5 L VBG pH VBG pCO2 VBG pO2 VBG Base Excess 09/17/24 18:49 ABG pH 7.33 L ABG pCO2 41 ABG pO2 71 L ABG HCO3 22 ABG O2 Saturation 93 ABG Base Excess -4 L VBG pH VBG pCO2 VBG pO2 VBG Base Excess Assessment & Plan A&P Narrative # Acute upper GI bleed in the form of melena # Acute posthemorrhagic anemia # Acute hepatic encephalopathy # Chronic liver disease with thrombocytopenia abnormal liver function test and coagulopathy secondary to alcohol Plan Agree with the blood transfusion give patient 2 units of PRBC Octreotide infusion Lactulose and Xifaxan Consent will be obtained from the sister who makes that decision for fiberoptic esophagogastroduodenoscopy with possible therapeutic intervention under intravenous moderate sedation Prognosis guarded Thank you for the opportunity to participate in the care of this patient Time Spent With Patient Time: Total time spent is greater than 50% in coordination of care (as documented) at patient's floor/unit and/or counseling patient:
[2024-09-23] MEDS: DEXTROSE 50%-WATER INJ 50 ML SYRINGE IV (22:35)
[2024-09-24] VITALS (119 sets, daily range): BP systolic 46–105; BP diastolic 29–60; PULSE 0–107; RESP 0–22; TEMP 36.1–36.8; O2SAT 76–96
[2024-09-24] MEDS: DEXTROSE 50%-WATER INJ 50 ML SYRINGE IV ×4 (02:00→13:00)
[2024-09-24] MEDS: Norepinephrine/NS 16mg/250ml 16 MG/250 ML BAG 34.405 MG IV (04:20)
[2024-09-24] MEDS: VASOPRESSIN IN NS IVPB 20 UNIT/100 ML BAG 9 UNIT IV (05:16)
[2024-09-24] MEDS: LACTULOSE SYRUP 20 GM/30 ML UDC 30 GM NG ×2 (05:39→13:05)
[2024-09-24 06:30] LABS: Alanine Aminotransferase 27 U/L (10-49); Albumin, Serum 3.1 gm/dL (3.4-4.8); Albumin/Globulin Ratio 1.2 (1.2-2.2); Alkaline Phosphatase 108 U/L (46-116); Anion Gap 17 (7-16); Aspartate Amino Transferase 80 U/L (0-34); BUN/Creatinine Ratio 20 Ratio (12-20); Blood Urea Nitrogen 58 mg/dL (9-23); Calcium 9.5 mg/dL (8.3-10.6); Calcium (Corrected) 10.2 mg/dL (8.5-10.1); Chloride 114 mMol/L (98-107); Creatinine (Component) 2.9 mg/dL (0.6-1.3); Estimated Creatinine Clearance 25.2 mL/min (>60); Globulin 2.6 gm/dL (2.3-3.5); Glucose 84 mg/dL (74-106); Osmolality,Calculated 316 (275-295); Potassium 4.5 mMol/L (3.4-5.1); Sodium 152 mMol/L (136-145); Total Protein 5.7 gm/dL (5.7-8.2); eGFR 22 See Note
[2024-09-24 06:35] LABS: Bilirubin,Total 26.8 mg/dL (0.3-1.2)
[2024-09-24] MEDS: BUMETANIDE INJ 0.25 MG/ML VIAL 4 ML 0.5 MG IVP (08:08)
[2024-09-24] MEDS: FUROSEMIDE INJ 10 MG/ML 4ML VIAL 40 MG IVP (09:12)
[2024-09-24] MEDS: CITRIC ACID/SODIUM CITR 15 ML UDC (BICITRA) 30 ML NG (09:12)
[2024-09-24] MEDS: FOLIC ACID 1 MG TABLET NG (09:12)
[2024-09-24] MEDS: THIAMINE 100 MG TABLET NG (09:12)
[2024-09-24 09:27] LABS: Basophils % (Auto) 0 % (0-2.5); Eosinophils # (Auto) 0.1 Thou/mm3 (0.0-0.5); Eosinophils % (Auto) 1 % (0-10); Immature Granulocytes % (Auto) 0 % (0-0); Immature Granulocytes Auto 0.02 Thou/mm3 (0.00-0.00); Lymphocytes # (Auto) 1.6 Thou/mm3 (1.0-4.8); Lymphocytes % (Auto) 12 % (10-50); Mean Corpuscular HGB Conc 31.3 g/dl (31.0-37.0); Mean Corpuscular Volume 99 fL (80-100); Monocytes # (Auto) 0.6 Thou/mm3 (0.0-0.8); Monocytes % (Auto) 4 % (0-12); Neutrophils # (Auto) 11.4 Thou/mm3 (1.8-7.7); Neutrophils % (Auto) 83 % (37-80); Nucleated Red Blood Cell # 0.15 Thou/mm3 (0.00-0.00); Nucleated Red Blood Cell % 1 /100 WBC (0); RDW Standard Deviation 78.3 fL (35.1-43.9); White Blood Count 13.7 Thou/mm3 (3.8-10.6)
[2024-09-24 09:48] LABS: Hematocrit 19.8 % (41.0-53.0); Hemoglobin 6.2 g/dL (13.5-16.0); Platelet Count 20 Thou/mm3 (140-440)
[2024-09-24] MEDS: Norepinephrine/NS 16mg/250ml 16 MG/250 ML BAG 50.285 MG IV (10:27)
--- NOTE | 2024-09-24 11:03 | ESPR_ITS ---
Documentation for date of: 09/24/24 Subjective Subjective Interval history: Decreased UOP overnight, bumex ordered. Hb 6.2 and Plt 20, blood products ordered. Family at bedside today, will transition to comfort cares at 3 PM. Exam Vital Signs Temp Pulse Resp BP Pulse Ox O2 Del Method O2 Flow Rate 97.0 F 93 17 100/53 L 93 L Mechanical Ventilation 3 09/24/24 10:20 09/24/24 10:46 09/24/24 10:20 09/24/24 10:46 09/24/24 10:46 09/24/24 08:00 09/16/24 12:00 FiO2 100 09/24/24 10:46 Narrative Exam GENERAL: Intubated and mechanically ventilated, off sedation NEURO: GCS-3, sluggish pupillary reflexes HEENT: Dey mucosa. Eyes open, symmetrical, icteric CARDIO: No chest pain on palpation. 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 Garcia catheter in-situ SKIN/MSK/EXT: Icteric skin, bilateral pitting edema Objective Labs 09/24/24 09:06 09/24/24 04:44 Labs: Laboratory Results - last 24 hr 09/22/24 09/23/24 09/24/24 14:17 04:30 04:44 WBC RBC Hgb Hct MCV MCH MCHC RDW Std Deviation Plt Count Neut % (Auto) Lymph % (Auto) [place] % (Auto) Eos % (Auto) Baso % (Auto) Neut # (Auto) Lymph # (Auto) [place] # (Auto) Eos # (Auto) Baso # (Auto) Immature Gran # (Auto) Absolute Nucleated RBC Immature Gran % Nucleated RBC % Fibrinogen < 50 L* Sodium 152 H Potassium 4.5 D Chloride 114 H Carbon Dioxide 21.0 Anion Gap 17 H BUN 58 H Creatinine 2.9 H Estim Creat Clear Calc 25.2 L eGFR 22 L BUN/Creatinine Ratio 20 Glucose 84 Calculated Osmolality 316 H Calcium 9.5 Corrected Calcium 10.2 H Total Bilirubin 26.8 H* D AST 80 H ALT 27 Alkaline Phosphatase 108 Total Protein 5.7 Albumin 3.1 L D Globulin 2.6 Albumin/Globulin Ratio 1.2 Blood Type O Positive Antibody Screen POSITIVE Antibody Identification Anti-E Crossmatch See Detail Blood Bank Wristband ID Yes Blood Bank Comment PLATP Ready 09/24/24 09:06 WBC 13.7 H RBC 2.00 L Hgb 6.2 L* Hct 19.8 L* MCV 99 MCH 31.0 MCHC 31.3 RDW Std Deviation 78.3 H Plt Count 20 L* Neut % (Auto) 83 H Lymph % (Auto) 12 [place] % (Auto) 4 Eos % (Auto) 1 Baso % (Auto) 0 Neut # (Auto) 11.4 H Lymph # (Auto) 1.6 [place] # (Auto) 0.6 Eos # (Auto) 0.1 Baso # (Auto) 0.0 Immature Gran # (Auto) 0.02 H Absolute Nucleated RBC 0.15 H Immature Gran % 0 Nucleated RBC % 1 H Fibrinogen Sodium Potassium Chloride Carbon Dioxide Anion Gap BUN Creatinine Estim Creat Clear Calc eGFR BUN/Creatinine Ratio Glucose Calculated Osmolality Calcium Corrected Calcium Total Bilirubin AST ALT Alkaline Phosphatase Total Protein Albumin Globulin Albumin/Globulin Ratio Blood Type Antibody Screen Antibody Identification Crossmatch Blood Bank Wristband ID Blood Bank Comment ABG Interpretation ABG results: 08/28/24 08/29/24 09/03/24 22:40 10:05 15:24 ABG pH 7.41 7.50 H ABG pCO2 29 L 33 ABG pO2 69 L 63 L ABG HCO3 18 L 25 ABG O2 Saturation 94 94 ABG Base Excess -6 L 2 VBG pH 7.41 VBG pCO2 47 VBG pO2 30 VBG Base Excess 4 H 09/16/24 09/16/24 09/17/24 10:57 15:20 05:09 ABG pH 7.27 L 7.34 L 7.29 L ABG pCO2 48 40 46 ABG pO2 88 240 H D 64 L D ABG HCO3 22 21 22 ABG O2 Saturation 96 101 H 89 L ABG Base Excess -5 L -4 L -5 L VBG pH VBG pCO2 VBG pO2 VBG Base Excess 09/17/24 18:49 ABG pH 7.33 L ABG pCO2 41 ABG pO2 71 L ABG HCO3 22 ABG O2 Saturation 93 ABG Base Excess -4 L VBG pH VBG pCO2 VBG pO2 VBG Base Excess Quality Measures Quality Measures none Advance care planning discussed with:: sibling Assessment & Plan Assessment Current Active Medications: Generic Name Dose Route Start Last Admin Trade Name Freq PRN Reason Stop Dose Admin Albuterol/Ipratropium 3 ml 08/28/24 20:24 09/12/24 19:57 Albuterol/Ipratropium (Duoneb) Rt Janessa 3 Ml Nebu INH 09/27/24 22:59 3 ml Q4HRRT PRN Administration Wheeze Citric Acid/Sodium Citrate 30 ml 09/16/24 16:00 09/24/24 09:12 Citric Acid/Sodium Citr 15 Ml Udc (Bicitra) NG 10/16/24 15:59 30 ml DAILY JERSON Administration Dextrose 25 ml 09/15/24 06:05 09/22/24 16:06 Dextrose 50%-Water Inj 50 Ml Syringe IV 10/15/24 06:04 25 ml Q15MIN PRN Administration BG 50-70 responsive npo pt Dextrose 50 ml 09/15/24 06:05 09/24/24 10:38 Dextrose 50%-Water Inj 50 Ml Syringe IV 10/15/24 06:04 50 ml Q15MIN PRN Administration BG <50 OR BG <70 & pt unresponsive Folic Acid 1 mg 09/17/24 09:00 09/24/24 09:12 Folic Acid 1 Mg Tablet NG 10/17/24 08:59 1 mg QDAY JERSON Administration Furosemide 40 mg 09/22/24 11:00 09/24/24 09:12 Furosemide Inj 10 Mg/Ml 4ml Vial IVP 10/22/24 10:59 40 mg QDAY JERSON Administration Glucagon 1 mg 09/15/24 06:05 Glucagon Inj 1 Mg Vial IM Q15MIN PRN BG <70, and no IV access Heparin Sodium (Porcine) 2,600 unit 09/18/24 09:00 09/18/24 10:43 Heparin Sod Inj 1000 Unit/Ml Vial 10 Ml INDWELLCAT 10/02/24 08:59 2,600 unit PRN PRN Administration DIALYSIS Propofol 1,000 mg in 100 mls @ 2.685 mls/hr 09/16/24 13:43 09/20/24 09:10 Diprivan Ivpb IV 10/16/24 13:42 0 mcg/kg/min .Q24H PRN 0 mls/hr PER PROTOCOL Titration Protocol 5 MCG/KG/MIN Vasopressin/Sodium Chloride 20 unit in 100 mls @ 9 mls/hr 09/16/24 16:43 09/24/24 05:16 Vasostrict/Ns Ivpb IV 10/16/24 16:42 0.03 unit/min .Q11H7M PRN 9 mls/hr PER PROTOCOL Administration Protocol 0.03 UNIT/MIN Phenylephrine HCl 40 mg/ 100 mls @ 7.058 mls/hr 09/18/24 10:12 09/18/24 22:00 Sodium Chloride IV 10/18/24 10:11 0 mcg/kg/min .[id number] PRN 0 mls/hr Per Sepsis Protocol Titration Protocol 0.5 MCG/KG/MIN Norepinephrine Bitartrate 16 mg in 250 mls @ 4.411 mls/hr 09/18/24 15:47 09/24/24 10:27 Levophed In Ns 16mg/250ml IV 10/18/24 15:46 0.57 mcg/kg/min .Q24H PRN 50.285 mls/hr PER PROTOCOL Administration Protocol 0.05 MCG/KG/MIN Albumin Human 25 gm in 100 mls @ 100 mls/hr 09/24/24 12:00 Albuminar-25 Ivpb IV 09/27/24 11:59 QID JERSON Lactulose 30 gm 09/16/24 20:08 09/24/24 05:39 Lactulose Syrup 20 Gm/30 Ml Udc NG 10/16/24 18:59 30 gm QID JERSON Administration Protocol Sodium Chloride 5 ml 08/28/24 17:29 08/28/24 18:47 Sodium Chloride Rt Janessa 0.9% 3 Ml Nebu INH 09/27/24 17:28 3 ml PRN PRN Administration SOLN Thiamine HCl 100 mg 09/17/24 09:00 09/24/24 09:12 Thiamine 100 Mg Tablet NG 10/17/24 08:59 100 mg QDAY JERSON Administration Plan Summary: Abdifatah Stack is a 74-year-old male with past medical history of HCV, alcoholic cirrhosis, esophageal varices, GERD, anxiety, and BPH who presented on 08/28 with AMS after being found by caregiver in [place] puddle of dark-colored blood. During hospital course, received EGD on 09/01 which showed grade 1 varices (not large enough for band ligation), hemorrhagic gastritis, and hypertensive portal gastropathy with mucosal oozing as source of bleeding. Over past couple of days, noted to become more encephalopathic and developed worsening respiratory failure and required intubation and subsequently upgraded to ICU on 09/16. Neurological #Acute encephalopathy, likely hepatic/metabolic Baseline, conversational and oriented x 3. On admission, encephalopathic and A&O x 0 that improved throughout hospitalization. However, throughout last couple of days was noted to become more encephalopathic. Repeat CT head on 09/16: Negative for acute hemorrhage, mass effect, or midline shift Plan: - Reglan to improve motility ? Lactulose 30 g 4 times daily ? Rifaximin 550 mg twice daily ? Aspiration precautions, head of bed elevation Cardiovascular #Shock, hypovolemic due to third spacing in setting of cirrhosis vs distributive (septic), resolved History of cirrhosis with prominent ascites seen on CT A/P on 09/16. Pulmonary #Acute respiratory failure 2/2 acute encephalopathy ? Vent settings: VT 550, RR 15, PEEP 5, FiO2 35% #History of COPD Home medication Trelegy inhaler ? DuoNebs as needed Gastrointestinal #Acute blood loss anemia secondary to GI bleed #Esophageal varices, resolved Found unconscious in a pool of coffee-ground emesis - Will continue to monitor H&H - Transfuse for Hb <7 #Acute on chronic liver failure with coagulopathy and thrombocytopenia #Portal hypertension with esophageal varices, hypertensive portal gastropathy and ascites #Hyperbilirubinemia CMV IgG positive, IgM negative. EBV IgG positive, IgM negative. HAV negative, HBV antigen nonreactive. HCV antibody reactive, RNA negative. HSV I/II IgG positive, HIV negative. EGD: diffuse hypertensive portal gastropathy with mucosal oozing of blood and 1+ esophageal varices not large enough for band ligation. Abdominal US on 09/11: gallbladder sludge, gallbladder wall thickened 0.5 cm, cirrhosis and mild ascites. Meld?NA score 38 points -> 65-66% 90-day mortality Child?Hernandez class C, 12 points -> life expectancy 1-3 years, abdominal surgery mortality 82% Madrey score 42 -> may benefit from steroids Completed N-acetylcysteine IV daily on 09/13 for acute on chronic liver failure Completed 3 days of Phytonadione 10 mg SC daily ffrom 09/10-09/13 ? Status post paracentesis on 09/18 with removal of 550 cc straw-colored fluid ? SAAG of 1.4, which is > 1.1 and highly suggestive of portal hypertension ? 1 WBC in peritoneal fluid -> no SBP Renal Hypernatremia Sodium today- 151. Plan: -Free water flushes starting at 25ccs/hr #Respiratory acidosis-resolved #Non anion gap metabolic acidosis -resolved Grunting and responsive to pain only. Had 1 bowel movements in the past 48 hours. ? Lactulose and rifaxamin as above ? Aspiration precautions, head of bed elevation ? Continue Bicitra #Acute kidney injury, likely prerenal in setting of cirrhosis (hepatorenal syndrome) Baseline Cr 0.5 Urine creatinine 216, urine random protein 100, urine sodium <15, urine potassium 50, urine chloride <20 Renal US 09/08: no hydronephrosis, no significant cortical thinning Underwent dialysis on 09/18 but patient did not tolerate and will likely not be able to tolerate moving forward. Urine output about 1.04L total yesterday. - IV Lasix 40mg Qday ? Albumin 1 mg/kg daily ? Nephrology consulted, appreciate recommendations ? Renally dose medications and avoid nephrotoxic agents Heme/Onc #Acute blood loss anemia #Thrombocytopenia #Possible DIC Platelet count today- 22. Repeat coag panel: PT greater than 63, APTT 112.2, fibrinogen 15 Plan: -Continue monitor hemoglobin -Consider transfusing hemoglobin drops less than 7 Endocrine #Hypoglycemia -D50 PRN #Subclinical hypothyroidism TSH 0.39, T4 0.84 Likely normal based on patient age Infectious disease #? Spontaneous bacterial peritonitis, ruled out WBC uptrending, though no fevers. Freddy HERNÁNDEZ'hussein. Hospital management: Disposition: critically ill in ICU Fluids: none Diet: NPO Lines: PIV, temp dialysis catheter, OG tube DVT prophylaxis: SCDs Garcia: placed CODE STATUS: DNR Case was discussed with Dr Alvarado PGY-3 and attending physician, Dr Heath Hay, PGY-4 Attending Provider Attestation/Addendum See attestation of discharge nadia for final plan of care and services provided on same date of service.
--- NOTE | 2024-09-24 11:17 | PC.NURSE ---
per Dr. Joe at bedside, do not transfuse pRBCs or platelets, family at the bedside, Dr. Jeo at bedside
[2024-09-24 11:34] LABS: Slide Review Platelets confirmed
--- NOTE | 2024-09-24 11:44 | ESPR_ITS ---
Documentation for date of: 09/24/24 Subjective Subjective Interval history: Mr. Stack is a 74-year-old male with past medical history of liver cirrhosis secondary to alcohol use disorder, esophageal varices, ?Asthma/COPD, GERD, anxiety and BPH presented to [facility] on 08/28/2024 with a chief complaint of altered mental status. per EMS patient was found to be naked and altered. Noted to have dark blood all over the floor. During the hospital course patient had a GI bleed and was seen by Dr. Hall. Also noted to have metabolic encephalopathy-lactulose, rifaximin were initiated. For the last 24 hours his urine output has dropped significantly and renal consultation was requested. CT brain was negative. 09/08/2024 patient currently seen in telemetry.His current medications included folic acid, lactulose, Protonix, propranolol, rifaximin, thiamine.WBC 11.9, hemoglobin 9.5, platelets 131. Sodium 137, potassium 3.3, BUN 43, creatinine 2.9, calcium 9, phosphorus 3.9, total bilirubin 15.2, AST 132, ALT 53, albumin 1.7. Urine showed concentrated urine with blood and bilirubin. Urine sodium less than 15. Talk screen was negative. Hep panel showed AB and AB-. Hep C positive. Renal ultrasound this afternoon showed no hydronephrosis. No cortical thinning consistent with normal kidneys. Head CT on admission was negative. 09/09/2024 patient currently seen in telemetry. Today he seems to be more alert and awake. Last night hospitalist team called-patient complaining of abdominal pain and shortness of breath. Chest x-ray showed dilated bowel loops. Recommended KUB which showed ileus-NG tube was inserted overnight. Patient currently seems to be feeling little bit better. Denies any abdominal pain. Hemoglobin 9, platelets 109, WBC 11, sodium 137, potassium 3.4, BUN 44, creatinine 3.6, GFR 17, bilirubin significantly elevated to 19, AST 113, ALT 48, alk phos 155, albumin 2.1 urine sodium less than 15 urine output 225 mL/day Noted team started the patient on steroids. Patient has a decompensated liver cirrhosis. Hep C positive. Viral load pending. Dr. Hall on the case. Patient currently on albumin, midodrine, normal saline to rule out hepatorenal syndrome. Will continue the same for another 24 hours. If no improvement then HRS 1 diagnosis will be made 09/20/2024 Patient is seen and examined at bedside in the ICU Patient medical condition still remained the same and no acute overnight events Patient noted to have drop in hemoglobin and platelets, received 1 pack PRBC and 1 platelet transfusion yesterday Vitals are stable as of now on vasopressor and mechanical ventilator support Physical examination showed anasarca and icterus Labs showed Hb 7.9, platelets 22, potassium 3.1, sodium 144, BUN 68, creatinine 3.5, total bilirubin 27.3, ammonia 135 Recommended to increase the albumin dose infusions As patient is still hemodynamically unstable, not a candidate for hemodialysis still cannot proceed with dialysis sessions despite worsening renal functions Prognosis still remains poor in view of acute liver failure, kidney failure, respiratory failure. 09/21/2024 patient currently seen in ICU. Unable to tolerate dialysis yesterday due to bradycardia and hypotension. Unfortunately is not a candidate for dialysis and cannot proceed with further dialysis sessions. Remains on ventilator. ICU team spoke to family and they are leaning towards comfort care. Patient currently in multisystem organ failure (encephalopathy, respiratory failure, liver failure, kidney failure, coagulopathy, GI bleed). Prognosis remains grim. Currently he is DNR. Comfort care seems to be appropriate. Noted family planning to possible withdrawal on Sunday (Marco Sunday) 09/22/2024 Patient is seen and examined at the bedside in ICU No acute overnight events. His medical condition still remained the same Vitals are stable on phenylephrine, vasopressin, noradrenaline drips. Physical examination showed anasarca Labs showed Hb 7, platelets 22, sodium 148, chloride 113, BUN 60, creatinine 3, total bilirubin 29.7 Renal functions seem to improve, as the patient is having hyponatremia and fluid overloaded, recommended water flushes through NG tube As patient's condition still remains unstable, patient is not a good candidate for dialysis and will continue current management. 09/23/2024 Patient is seen and examined at the bedside in ICU No acute overnight events. His medical condition does not seem to improve Vitals are stable on vasopressin and norepinephrine drips. Physical examination showed diffuse icterus and anasarca Labs showed hemoglobin 6, platelets 22, fibrinogen<50, sodium 151, potassium 3.1, chloride 112, creatinine 3.1, BUN 57, total bilirubin 29.6 Patient is still producing adequate amount of urine despite worsened renal functions. Patient needs to receive dialysis, but based on his clinical condition patient is not a candidate for dialysis as of now Exam Vital Signs Temp Pulse Resp BP Pulse Ox O2 Del Method O2 Flow Rate 97.0 F 93 17 95/56 L 91 L Mechanical Ventilation 3 09/24/24 10:20 09/24/24 11:00 09/24/24 10:20 09/24/24 11:00 09/24/24 11:00 09/24/24 08:00 09/16/24 12:00 FiO2 100 09/24/24 10:46 Objective Labs 09/24/24 09:06 09/24/24 04:44 Labs: Laboratory Results - last 24 hr 09/22/24 09/23/24 09/24/24 14:17 04:30 04:44 WBC RBC Hgb Hct MCV MCH MCHC RDW Std Deviation Plt Count Neut % (Auto) Lymph % (Auto) Frontier % (Auto) Eos % (Auto) Baso % (Auto) Neut # (Auto) Lymph # (Auto) Frontier # (Auto) Eos # (Auto) Baso # (Auto) Immature Gran # (Auto) Absolute Nucleated RBC Immature Gran % Nucleated RBC % Fibrinogen < 50 L* Sodium 152 H Potassium 4.5 D Chloride 114 H Carbon Dioxide 21.0 Anion Gap 17 H BUN 58 H Creatinine 2.9 H Estim Creat Clear Calc 25.2 L eGFR 22 L BUN/Creatinine Ratio 20 Glucose 84 Calculated Osmolality 316 H Calcium 9.5 Corrected Calcium 10.2 H Total Bilirubin 26.8 H* D AST 80 H ALT 27 Alkaline Phosphatase 108 Total Protein 5.7 Albumin 3.1 L D Globulin 2.6 Albumin/Globulin Ratio 1.2 Misc Test Result Blood Type O Positive Antibody Screen POSITIVE Antibody Identification Anti-E Crossmatch See Detail Blood Bank Wristband ID Yes Blood Bank Comment PLATP Ready 09/24/24 09:06 WBC 13.7 H RBC 2.00 L Hgb 6.2 L* Hct 19.8 L* MCV 99 MCH 31.0 MCHC 31.3 RDW Std Deviation 78.3 H Plt Count 20 L* Neut % (Auto) 83 H Lymph % (Auto) 12 Frontier % (Auto) 4 Eos % (Auto) 1 Baso % (Auto) 0 Neut # (Auto) 11.4 H Lymph # (Auto) 1.6 Frontier # (Auto) 0.6 Eos # (Auto) 0.1 Baso # (Auto) 0.0 Immature Gran # (Auto) 0.02 H Absolute Nucleated RBC 0.15 H Immature Gran % 0 Nucleated RBC % 1 H Fibrinogen Sodium Potassium Chloride Carbon Dioxide Anion Gap BUN Creatinine Estim Creat Clear Calc eGFR BUN/Creatinine Ratio Glucose Calculated Osmolality Calcium Corrected Calcium Total Bilirubin AST ALT Alkaline Phosphatase Total Protein Albumin Globulin Albumin/Globulin Ratio Misc Test Result Platelets confirmed Blood Type Antibody Screen Antibody Identification Crossmatch Blood Bank Wristband ID Blood Bank Comment ABG Interpretation ABG results: 08/28/24 08/29/24 09/03/24 22:40 10:05 15:24 ABG pH 7.41 7.50 H ABG pCO2 29 L 33 ABG pO2 69 L 63 L ABG HCO3 18 L 25 ABG O2 Saturation 94 94 ABG Base Excess -6 L 2 VBG pH 7.41 VBG pCO2 47 VBG pO2 30 VBG Base Excess 4 H 09/16/24 09/16/24 09/17/24 10:57 15:20 05:09 ABG pH 7.27 L 7.34 L 7.29 L ABG pCO2 48 40 46 ABG pO2 88 240 H D 64 L D ABG HCO3 22 21 22 ABG O2 Saturation 96 101 H 89 L ABG Base Excess -5 L -4 L -5 L VBG pH VBG pCO2 VBG pO2 VBG Base Excess 09/17/24 18:49 ABG pH 7.33 L ABG pCO2 41 ABG pO2 71 L ABG HCO3 22 ABG O2 Saturation 93 ABG Base Excess -4 L VBG pH VBG pCO2 VBG pO2 VBG Base Excess Quality Measures Quality Measures none Advance care planning discussed with:: other Assessment & Plan Assessment Current Active Medications: Generic Name Dose Route Start Last Admin Trade Name Freq PRN Reason Stop Dose Admin Albuterol/Ipratropium 3 ml 08/28/24 20:24 09/12/24 19:57 Albuterol/Ipratropium (Duoneb) Rt Janessa 3 Ml Nebu INH 09/27/24 22:59 3 ml Q4HRRT PRN Administration Wheeze Citric Acid/Sodium Citrate 30 ml 09/16/24 16:00 09/24/24 09:12 Citric Acid/Sodium Citr 15 Ml Udc (Bicitra) NG 10/16/24 15:59 30 ml DAILY JERSON Administration Dextrose 25 ml 09/15/24 06:05 09/22/24 16:06 Dextrose 50%-Water Inj 50 Ml Syringe IV 10/15/24 06:04 25 ml Q15MIN PRN Administration BG 50-70 responsive npo pt Dextrose 50 ml 09/15/24 06:05 09/24/24 10:38 Dextrose 50%-Water Inj 50 Ml Syringe IV 10/15/24 06:04 50 ml Q15MIN PRN Administration BG <50 OR BG <70 & pt unresponsive Folic Acid 1 mg 09/17/24 09:00 09/24/24 09:12 Folic Acid 1 Mg Tablet NG 10/17/24 08:59 1 mg QDAY JERSON Administration Furosemide 40 mg 09/22/24 11:00 09/24/24 09:12 Furosemide Inj 10 Mg/Ml 4ml Vial IVP 10/22/24 10:59 40 mg QDAY JERSON Administration Glucagon 1 mg 09/15/24 06:05 Glucagon Inj 1 Mg Vial IM Q15MIN PRN BG <70, and no IV access Heparin Sodium (Porcine) 2,600 unit 09/18/24 09:00 09/18/24 10:43 Heparin Sod Inj 1000 Unit/Ml Vial 10 Ml INDWELLCAT 10/02/24 08:59 2,600 unit PRN PRN Administration DIALYSIS Propofol 1,000 mg in 100 mls @ 2.685 mls/hr 09/16/24 13:43 09/20/24 09:10 Diprivan Ivpb IV 10/16/24 13:42 0 mcg/kg/min .Q24H PRN 0 mls/hr PER PROTOCOL Titration Protocol 5 MCG/KG/MIN Vasopressin/Sodium Chloride 20 unit in 100 mls @ 9 mls/hr 09/16/24 16:43 09/24/24 05:16 Vasostrict/Ns Ivpb IV 10/16/24 16:42 0.03 unit/min .Q11H7M PRN 9 mls/hr PER PROTOCOL Administration Protocol 0.03 UNIT/MIN Phenylephrine HCl 40 mg/ 100 mls @ 7.058 mls/hr 09/18/24 10:12 09/18/24 22:00 Sodium Chloride IV 10/18/24 10:11 0 mcg/kg/min .[id number] PRN 0 mls/hr Per Sepsis Protocol Titration Protocol 0.5 MCG/KG/MIN Norepinephrine Bitartrate 16 mg in 250 mls @ 4.411 mls/hr 09/18/24 15:47 09/24/24 10:27 Levophed In Ns 16mg/250ml IV 10/18/24 15:46 0.57 mcg/kg/min .Q24H PRN 50.285 mls/hr PER PROTOCOL Administration Protocol 0.05 MCG/KG/MIN Albumin Human 25 gm in 100 mls @ 100 mls/hr 09/24/24 12:00 Albuminar-25 Ivpb IV 09/27/24 11:59 QID JERSON Lactulose 30 gm 09/16/24 20:08 09/24/24 05:39 Lactulose Syrup 20 Gm/30 Ml Udc NG 10/16/24 18:59 30 gm QID JERSON Administration Protocol Sodium Chloride 5 ml 08/28/24 17:29 08/28/24 18:47 Sodium Chloride Rt Janessa 0.9% 3 Ml Nebu INH 09/27/24 17:28 3 ml PRN PRN Administration SOLN Thiamine HCl 100 mg 09/17/24 09:00 09/24/24 09:12 Thiamine 100 Mg Tablet NG 10/17/24 08:59 100 mg QDAY JERSON Administration Plan Mr. Stack is a 74-year-old male with past medical history of liver cirrhosis secondary to alcohol use disorder, esophageal varices, ?Asthma/COPD, GERD, anxiety and BPH presented to [facility] on 08/28/2024 with a chief complaint of altered mental status and admitted for multisystem organ failure. #Acute renal failure (ARF) More likely Hepatorenal syndrome in the setting of cirrhosis vs prerenal # Acute decompensated liver cirrhosis -Patient had history of alcoholic liver cirrhosis and esophageal varices -At the time of admission, creatinine is 0.8 and during the hospital course continued to uptrend with decreased urine output -In view of worsening renal functions, Vas-Cath was placed by ICU team on 09/19/2024 and after having conversation with the family, patient was started on dialysis but he could not tolerate due to bradycardia and hypotension and dialysis was discontinued as it made him hemodynamically more unstable. -As of 09/24/2024 Creatinine is 2.9, BUN 58, osmolality 316, total bilirubin 26.8 Plan -Recommended to continue albumin infusions -Cannot offer any further dialysis session for now in view of patient's medical condition -Recommended to continue vasopressors, lactulose, other needed medications as needed for acute decompensated liver failure -Continue blood and blood product transfusions as needed -Replace electrolytes as needed and continue to monitor renal functions -Avoid nephrotoxic medications and renally dose medications -Monitor urine output -ICU team planning to discuss with family regarding the comfort care as prognosis remains very poor in the setting of multisystem organ failure # Hyperosmolar hyperchloremic hypernatremia -Sodium as of 09/22/2024 is 148 > 3/4, Na 151 > 3/5, Na 152 Likely due to multiple infusions Plan -Free water deficit calculated for desired sodium of 145 is 2.8 -Recommended to give water flushes through NG tube during 24 hours as patient is currently fluid overloaded -Monitor sodium # Hypokalemia Likely due to decreased intake -Potassium as of 09/23/2024 is 3.1 Plan -Patient received 20 mEq of IV potassium -Monitor potassium and replete as needed # Acute anemia # Thrombocytopenia Likely multifactorial, combined cirrhosis, malnutrition, DIC, possible GI losses, repeated blood draws for testing -Patient received multiple blood transfusions and blood products Plan -Monitor CBC and replace blood losses as needed #Acute encephalopathy, likely hepatic/metabolic #Shock, hypovolemic due to third spacing in setting of cirrhosis vs distributive (septic), resolved #Bradycardia, in setting of propofol #Acute respiratory failure requiring intubation #Aspiration pneumonia, resolved #History of COPD #Acute blood loss anemia secondary to GI bleed, resolved #Esophageal varices, resolved #Acute on chronic liver failure with coagulopathy and thrombocytopenia #Portal hypertension with esophageal varices, hypertensive portal gastropathy and ascites #Hyperbilirubinemia #Respiratory acidosis #Acute blood loss anemia, stable #Subclinical hypothyroidism #? Spontaneous bacterial peritonitis Rest of the medical conditions to be treated as per primary team Thank you for allowing us to participate in the care of the patient Patient plan of care was discussed with the attending physician, Dr. Marcela Hatch, PGY1 Attending Provider Attestation/Addendum Patient seen and examined with resident physician Dr. Tobias. Note reviewed, agree with findings and recommendations. Family planning for comfort care/withdrawal today. Patient still with multisystem organ failure. Prognosis extremely poor
--- NOTE | 2024-09-24 12:00 | PC.SS ---
Update: Plan is to transition patient to comfort care today. Patient's sister at bedside.
[2024-09-24] MEDS: ALBUMIN HUMAN 25% IVPB 25 GM/100 ML BTL IV (13:05)
[2024-09-24] MEDS: Norepinephrine/NS 16mg/250ml 16 MG/250 ML BAG 60.871 MG IV (15:15)
[2024-09-24] MEDS: GLYCOPYRROLATE INJ 0.2 MG/ML VIAL IV (15:49)
[2024-09-24] MEDS: LORazepam 2 MG/ML VIAL IVP (16:00)
[2024-09-24] MEDS: MORPHINE SULF INJ 10 MG/ML VIAL 4 MG IVP ×2 (16:00→16:19)
--- NOTE | 2024-09-24 16:36 | DES_ITS ---
<Statement entered by Nando Joe MD - 09/28/24 01:20> Attending Attestation: I was present at the time of pronouncement and agree with documentation thereof. Documentation for date of: 09/24/24 Pronouncement Note Date and Time of Date of : 09/24/24 Time of : 16:33 PCOD Preliminary cause of : Cirrhosis of liver Contributing Factors (1) Acute renal failure (ARF): (2) Acute upper gastrointestinal bleeding: (3) Cirrhosis of liver: (4) Hepatic encephalopathy: (5) Anemia: Additional Data Attending physician: Earline Coulter DO
--- NOTE | 2024-09-24 16:38 | DES_ITS ---
<Statement entered by Nando Joe MD - 09/28/24 12:19> Attending attestation: Patient seen and examined with above resident, Choco Connolly?Ho, DO. I agree with the findings, assessment, and plan of care as documented. Patient continues to be off of fentanyl for nearly 48 hours with no significant recovery of neurologic function. Continues to not have significant bowel movements despite use of rifaximin, lactulose, and MiraLAX for additional osmotic agent. Patient was previously tolerating tube feeds, this has been discontinued with escalating requirements of vasopressors. Renal function remains significantly declined without any improvement despite aggressive care with albumin, vasopressor support, octreotide for over a week. Patient's family was at bedside and I discussed with his sister their desires to transition the patient to comfort care today given the adventist holiday. Patient family elected for transition to comfort after 3 PM for adventist reasons. They were allowed to pray at bedside and the patient had vasopressor support discontinued with transition to room air from mechanical ventilation. He probably had demise but with comfort care orders in place to limit potential discomfort and anxiety associated with that. Patient's family was assisted with plans for arrangements as the patient was evaluated and he may have benefits that are reachable by going to the office in [place]. Patient will be going to [facility] until they can arrange. I did offer to write letters so the patient's family came obtain his assets from the bank appropriately but they declined and they will look to the appropriate process for this. Condolences given at bedside. I did also speak to his nephew who is a hospitalist who was a greeable with plan of care after his independent review details as I relayed to him over the phone. Ultimately, the patient's sister was the one who made decision to transition after our previous discussion and adequate time for the family to process. Total critical care time: I personally spent 40 minutes for review of physiologic parameters, directing plan of care throughout the day including transition to comfort care, and extensive counseling of patient's family at bedside. This is exclusive of time spent teaching housestaff performing any separate billable procedures. Patient continues require critical care services for acute decompensated liver cirrhosis secondary to alcohol abuse with hepatic encephalopathy,. Patient remains at significant risk for further morbidity and ultimately did demise given the high risk for mortality associated with that severity of his acute as well as chronic comorbidities. Documentation for date of: 09/24/24 Summary Date and Time Date of admission: 08/28/24 20:24 Date of : 09/24/24 Time of : 16:33 Summary Details: Mr. Stack is a 74-year-old male with past medical history of liver cirrhosis secondary to alcohol use disorder, esophageal varices, Asthma/COPD, GERD, anxiety and BPH presented to [facility] on 08/28/2024 with a chief complaint of altered mental status. Per EMS patient was found to be naked and altered. Noted to have dark blood all over the floor. Hospital Course: The patient was intubated due to acute hypoxic respiratory failure secondary to liver cirrhosis. The patient developing worsening kidney failure and was unable to tolerate dialysis. Despite sedation being discontinued, the patient did not emerge from sedation. Given the poor prognosis, family transitioned the patient to comfort care measures. Additional Data Confirmation of as documented by pronouncing clinician: no pulse, no respirations and no heart sounds Family: at bedside Attending physician: Earline Coulter, DO Visit Providers Provider Primary care physician: Physician No Primary/Family Consults: 08/28/24 17:48 Consult to Gastroenterology Stat Comment: [facility] Consulting Provider: Gail Hall 08/31/24 10:32 Referral Physical Therapy Routine Comment: Physician Instructions: Instructions: For possible SNF placement 09/05/24 09:29 Referral Registered Dietitian Routine Comment: 09/05/24 18:05 Referral Wound Care Routine Comment: 09/08/24 07:37 Consult to Nephrology Routine Comment: CONNOR, decreased urine output Consulting Provider: Donnell Medrano ([facility]) 09/11/24 09:33 Referral - L[facility]iner Stat Service Needed for Transfer: Gastroenterology Addl Comments:: Hepatology 09/22/24 11:12 Referral Registered Dietitian Stat Comment: Trickle feeding with water flushes for hypernatrem Diagnosis PCOD Cause of : Cirrhosis of liver Contributing Factors (1) Acute renal failure (ARF): (2) Acute upper gastrointestinal bleeding: (3) Cirrhosis of liver: (4) Hepatic encephalopathy: (5) Anemia: Discharge Plan Plan Patient Disposition: Prescriptions/Referrals Referrals: No Primary/Family,Physician [Primary Care Provider] - Patient/Caregiver Discharge Instructions Education Materials: Bleeding Gastrointestinal, Understanding Cirrhosis, ED Cirrhosis Print Language: Welsh
--- NOTE | 2024-09-24 18:27 | PC.NURSE ---
pt extubated at [address] Krause, TID [id number] Krause, DNW called at 1710 with TID, OPA# [id number], pt ruled out as donor.
== END 2024-09-24 16:33 | disposition expired ==
LOC: SERX 19:39 → SERHOLD 21:06 → S3SX 08-29 00:41 → S2NX 08-31 03:41 → S2SX 09-18 09:35 → S3SX 09-23 07:51 → S2NX 09-23 07:51
PROVIDERS: Internal Medicine; Internal Medicine Critical Care Medicine; Nurse Practitioner Family; Specialist; Student in an Organized Health Care Education/Training Program; Admitting Provider Student in an Organized Health Care Education/Training Program; Emergency Provider Emergency Medicine; Visit Provider Internal Medicine
PROC: 0DJ08ZZ Inspection of Upper Intestinal Tract, Via Natural or Artificial Opening Endoscopic (ICD-10-PCS; CPT 43239; principal; 2024-08-29 19:15)
DX: K70.31 Alcoholic cirrhosis of liver with ascites (principal); G93.41 Metabolic encephalopathy; I85.11 Secondary esophageal varices with bleeding; J69.0 Pneumonitis due to inhalation of food and vomit; J96.01 Acute respiratory failure with hypoxia; N18.6 End stage renal disease; K29.71 Gastritis, unspecified, with bleeding; E87.4 Mixed disorder of acid-base balance; D62 Acute posthemorrhagic anemia; N17.9 Acute kidney failure, unspecified; E87.0 Hyperosmolality and hypernatremia; J44.0 Chronic obstructive pulmonary disease with (acute) lower respiratory infection; B17.2 Acute hepatitis E; D84.9 Immunodeficiency, unspecified; K56.7 Ileus, unspecified; K76.6 Portal hypertension; F41.9 Anxiety disorder, unspecified; K21.9 Gastro-esophageal reflux disease without esophagitis; K70.40 Alcoholic hepatic failure without coma; D50.9 Iron deficiency anemia, unspecified; N40.0 Benign prostatic hyperplasia without lower urinary tract symptoms; Z60.2 Problems related to living alone; F10.10 Alcohol abuse, uncomplicated; E87.5 Hyperkalemia; J44.89 Other specified chronic obstructive pulmonary disease; K76.82 Hepatic encephalopathy; Y90.0 Blood alcohol level of less than 20 mg/100 ml; Z66 Do not resuscitate; Z51.5 Encounter for palliative care; B19.20 Unspecified viral hepatitis C without hepatic coma; E83.39 Other disorders of phosphorus metabolism; E03.8 Other specified hypothyroidism; E87.6 Hypokalemia; E86.0 Dehydration; D69.59 Other secondary thrombocytopenia; E87.70 Fluid overload, unspecified; R57.1 Hypovolemic shock; Z78.1 Physical restraint status; Z79.899 Other long term (current) drug therapy; Z99.2 Dependence on renal dialysis; E87.8 Other disorders of electrolyte and fluid balance, not elsewhere classified
CPT/HCPCS: 36415; 36430; 36600; 70450; 71045; 74018; 74176; 76700; 76770; 80053; 80061; 80069; 80074; 80202; 80307; 80320; 81001; 82042; 82140; 82150; 82248; 82436; 82533; 82570; 82607; 82746; 82803; 82945; 83036; 83605; 83615; 83690; 83735; 83880; 83935; 84100; 84133; 84156; 84157; 84300; 84425; 84439; 84443; 84484; 84540; 85014; 85018; 85025; 85384; 85610; 85730; 86580; 86644; 86645; 86664; 86665; 86695; 86696; 86703; 86790; 86850; 86870; 86900; 86901; 86921; 86922; 86927; 86965; 87040; 87070; 87075; 87086; 87106; 87205; 87522; 89051; 93005; 94002; 94003; 94640; 94664; 96374; 96375; 96376; 97162; 99291; A9270; J0132; J0171; J0612; J0696; J1643; J1815; J1940; J2060; J2250; J2270; J2354; J2371; J2405; J2470; J2543; J2598; J2704; J2765; J3010; J3370; J3372; J3430; J3480; J3490; J7030; J7040; J7042; J7050; J7060; J7070; J7120; J7512; J7999; P9012; P9016; P9035; P9047; P9060; Q5105; G0480; J1596